=== PATIENT | female | born 1945 | race Caucasian/White ===

== ENCOUNTER → 2016-05-02 | Outpatient (CLI) | payer OTHER ==
[~2016-05-02] MED LIST: ACET-1256 PEG; AGG PEG; AGGRENOX PEG; ALBUAER19 INH; ALL100 PEG; ALLO100T PEG; AMLO-110 PEG; AMLO2.5T PEG; ASCO500T16 PO; ASPI81TA28 PEG; B-COTAB18 PO; BACL10TA PEG; BISA10SU3 PR; BISA10SU5 PR; BISA10SU7 PR; BUSP15TA70 PEG; BUSP1TAB46 PEG; CALCTAB7 PO; CHOL100010 PO; CHOL1TAB42 PO; CHOL1TAB46 PEG; CLC100X PO; CLOP1TAB15 PEG; DLCS PR; DOCU-94 PO; EPGI2M INJ; ERTA1INJ IV; ESCI1TAB10 PEG; ESCI1TAB10 PO; FIDA1TAB PO; FLUC100T4 PEG; GABA1SOL4 PEG; GABA300C19 PO; GENT0.1C2 FLUSH; HYPO0.01 TOP; INSDGI SC; INVI1 IV; IPRASOL4 INH; KPP250 PEG; KPPSUDL500 PO; LAMO150T32 PEG; LAMO200T38 PEG; LAMO200T38 PO; LAMO25TA PEG; LCTX PEG; LDDP5 TOP; LEVE100S10 PEG; LEVE250T PEG; LEVO-17 GT; LEVO-17 PEG; LEVO-17 PO; LEVO1TAB35 PO; LEXAPRO PEG; LIFI5DRO; LIFI5DRO OP; LIFI5DRO OPB; LMC25 PEG; LORA-741 PEG; LORA-741 PO; LRS10 PO; LYSI500C4 PO; MAGNTAB4 PO; MEDR2.5T GT; MELA1CAP PO; MELA1TAB4 PEG; MELA1TAB4 PO; MELA1TAB5 PO; MENTOIN TOP; MERO500I3 IV; METH1INJ SC; METH1INJ SQ; METH1TAB5 PO; METHTAB2 PO; MISCCAP80; MISCCAP80 PO; MULT-116 PO; NF656 TOP; NRN100 PO; NRN600 PEG; NUTRLIQ14 PEG; NVLG; NVLG SC; NVLGI SC; ONDA4TAB46 PEG; ONDA4TAB46 PO; ONDA4TAB65 PEG; PANT40TA PO; PENT100C6 PEG; PENT100C6 PO; PHEN-876 GT; PHEN-876 PEG; POLY335019 PEG; POLY335040 PO; POLYSOL4 OP; POLYSOL4 OPB; PROB1TAB16 PEG; PROP1SOL OPB; QUET1TAB30 PO; SLWMEC PO; SOLI10TA2 PO; SRQ25 PO; SULF1SUS4 PEG; SULF800T23 PO; SYSTANE; THIA50TA3 PO; TYLOTC500 PEG; VNTHFA/IN INH; WHITOIN2 OPB; [UNRECOGNIZED DRUG - CODE] INJ; [UNRECOGNIZED DRUG - CODE] PEG; [UNRECOGNIZED DRUG - CODE] PEG; [UNRECOGNIZED DRUG - CODE] SC; [UNRECOGNIZED DRUG - OTHER]
[2016-05-02 12:59] LABS: BASO % 0.2 %; BASO ABS # 0.01 K/uL (0-0.2); EOS % 0.9 %; HEMATOCRIT 44.7 % (37-47); IG% 0.4 %; LYMPH % 27.2 %; LYMPH ABS # 1.44 K/uL (1.2-3.4); MEAN CELL VOLUME 94.7 fL (80-100); MEAN CORPUSCULAR HEMOGLOBIN 29.4 pg (25-34); MEAN CORPUSCULAR HGB CONC 31.1 g/dl (32-36); MEAN PLATELET VOLUME 9.8 fL (7.4-10.4); MONO % 5.7 %; NEUT % 65.6 %; PLATELET COUNT 130 K/uL (130-400); RED BLOOD COUNT 4.72 M/uL (4.2-5.4)
[2016-05-02 13:36] LABS: ANISOCYTOSIS PRESENT; COMPLETE YES
== END | disposition home or self-care (01) ==
LOC: C.LABSPEC 12:25
PROVIDERS: ATTEND Internal Medicine Critical Care Medicine
DX: G82.50 Quadriplegia, unspecified (principal); J96.10 Chronic respiratory failure, unspecified whether with hypoxia or hypercapnia; I95.9 Hypotension, unspecified; E83.42 Hypomagnesemia; I10 Essential (primary) hypertension; I50.9 Heart failure, unspecified; E83.51 Hypocalcemia

== ENCOUNTER 2016-05-27 17:50 | Emergency (ER) | payer OTHER ==
[~2016-05-27] VITALS: Ht 152.4 cm; Wt 74.2 kg
[~2016-05-27 17:50] MED LIST changes: -ACET-1256 PEG; -AGGRENOX PEG; -ALL100 PEG; -AMLO-110 PEG; -BACL10TA PEG; -BISA10SU5 PR; -BISA10SU7 PR; -BUSP1TAB46 PEG; -CHOL100010 PO; -CHOL1TAB46 PEG; -DLCS PR; -DOCU-94 PO; -EPGI2M INJ; -ERTA1INJ IV; -ESCI1TAB10 PEG; -GABA1SOL4 PEG; -GENT0.1C2 FLUSH; -HYPO0.01 TOP; -INSDGI SC; -INVI1 IV; -IPRASOL4 INH; -KPP250 PEG; -KPPSUDL500 PO; -LAMO150T32 PEG; -LAMO200T38 PEG; -LAMO200T38 PO; -LAMO25TA PEG; -LCTX PEG; -LDDP5 TOP; -LEVE100S10 PEG; -LEVE250T PEG; -LEVO-17 GT; -LEVO-17 PEG; -LEVO1TAB35 PO; -LEXAPRO PEG; -LIFI5DRO; -LIFI5DRO OP; -LIFI5DRO OPB; -LMC25 PEG; -LORA-741 PO; -LRS10 PO; -MEDR2.5T GT; -MELA1CAP PO; -MELA1TAB4 PEG; -MELA1TAB4 PO; -METH1INJ SC; -METH1TAB5 PO; -MISCCAP80 PO; -NRN600 PEG; -NUTRLIQ14 PEG; -NVLG; -NVLG SC; -ONDA4TAB46 PEG; -ONDA4TAB65 PEG; -PENT100C6 PEG; -PHEN-876 GT; -POLY335019 PEG; -POLYSOL4 OP; -PROB1TAB16 PEG; -PROP1SOL OPB; -SLWMEC PO; -SRQ25 PO; -SULF1SUS4 PEG; -SULF800T23 PO; -THIA50TA3 PO; -VNTHFA/IN INH; -WHITOIN2 OPB; -[UNRECOGNIZED DRUG - CODE] PEG; -[UNRECOGNIZED DRUG - CODE] PEG
[2016-05-27 18:06] VITALS: Ht 152.4 cm; Wt 74.2 kg
[2016-05-27] MEDS ORDERED: SODIUM CHLORIDE 0.9% 1000ML 1,000 ML IV STA (18:34)
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
--- NOTE | 2016-05-27 18:56 | DIAGNOSTIC IMAGING REPORT ---
CHEST ONE VIEW PORTABLE CLINICAL HISTORY: Altered mental status. Weakness. Hypotension. COMPARISON STUDY: Chest radiograph June 30, 2015. FINDINGS: Bilateral subclavian [id number] and a tracheostomy tube are again noted. Sclerosis within the right humeral head is unchanged. There is no pneumothorax. Left basilar opacity is again noted. There is no evidence of pulmonary edema. No pneumothorax or pleural effusion is present. The cardiomediastinal silhouette is stable. IMPRESSION: Persistent left lower lung opacity which may reflect atelectasis or consolidation. Radiographic follow-up is recommended. Electronically signed by: Diallo Parker M.D. 05/27/2016 6:55 PM Dictated Date/Time: 05/27/2016 6:53 PM
[2016-05-27 18:59] LABS: BASO % 0.1 %; BASO ABS # 0.01 K/uL (0-0.2); COMPLETE YES; EOS % 0.3 %; HEMATOCRIT 41.8 % (37-47); IG% 0.1 %; LYMPH % 6.9 %; LYMPH ABS # 0.71 K/uL (1.2-3.4); MEAN CELL VOLUME 91.7 fL (80-100); MEAN CORPUSCULAR HEMOGLOBIN 29.6 pg (25-34); MEAN CORPUSCULAR HGB CONC 32.3 g/dl (32-36); MEAN PLATELET VOLUME 10.2 fL (7.4-10.4); MONO % 8.4 %; NEUT % 84.2 %; PLATELET COUNT 104 K/uL (130-400); RED BLOOD COUNT 4.56 M/uL (4.2-5.4); WHITE BLOOD COUNT 10.36 K/uL (4.8-10.8)
[2016-05-27 19:09] LABS: INR 1.1 (0.9-1.1); PARTIAL THROMBOPLASTIN RATIO 1.7; PROTHROMBIN TIME (PATIENT) 11.3 SECONDS (9.0-12.0)
[2016-05-27 19:14] LABS: BLOOD UREA NITROGEN 35 mg/dl (7-18); GLUCOSE 134 mg/dl (70-99)
[2016-05-27 19:15] LABS: ALT/SGPT 58 U/L (12-78); CALCIUM 9.4 mg/dl (8.5-10.1); CARBON DIOXIDE 25 mmol/L (21-32); CHLORIDE 97 mmol/L (98-107); MAGNESIUM 2.6 mg/dl (1.8-2.4); POTASSIUM 5.2 mmol/L (3.5-5.1); SODIUM 132 mmol/L (136-145)
[2016-05-27 19:18] LABS: ALKALINE PHOSPHATASE 163 U/L (45-117); AST/SGOT 37 U/L (15-37); CKMB/CK RATIO 16.7 (0-3.0)
[2016-05-27 19:29] LABS: MANUAL MICROSCOPIC REQUIRED? YES; URINE APPEARANCE SL CLOUDY (CLEAR); URINE BILIRUBIN NEG (NEG); URINE COLOR YELLOW; URINE NITRITE NEG (NEG); URINE PH 5.5 (4.5-7.5); URINE SPECIFIC GRAVITY <= 1.005 (1.000-1.030); UROBILINOGEN NEG (NEG)
[2016-05-27 19:30] LABS: REVIEW REQ? NO
[2016-05-27 19:35] LABS: URINE BACTERIA 2+ (NEG); URINE MUCUS PRESENT (NONE PRSENT); URINE WBC >30 /hpf (0-5)
[2016-05-27 19:36] LABS: ZZURINE CULT IF INDIC CATH YES
[2016-05-27] MEDS ORDERED: MISCCAP80 PO (19:37)
[2016-05-27] MEDS ORDERED: THIA50TA3 PO (19:37)
[2016-05-27] MEDS ORDERED: PENT100C6 PEG (19:39)
[2016-05-27] MEDS ORDERED: NRN600 PEG (19:39)
[2016-05-27] MEDS ORDERED: POLY335019 PEG (19:55)
[2016-05-27] MEDS ORDERED: LIFI5DRO OPB (19:55)
[2016-05-27] MEDS ORDERED: CHOL100010 PO (19:55)
[2016-05-27] MEDS ORDERED: MELA1TAB4 PO (19:55)
[2016-05-27] MEDS ORDERED: NVLG SC (19:55)
[2016-05-27] MEDS ORDERED: METH1TAB5 PO (19:55)
[2016-05-27] MEDS ORDERED: DOCU-94 PO (19:55)
[2016-05-27] MEDS ORDERED: EPGI2M INJ (19:56)
[2016-05-27] MEDS ORDERED: WHITOIN2 OPB (19:57)
[2016-05-27] MEDS ORDERED: MAGNTAB4 PO (20:00)
[2016-05-27] MEDS ORDERED: SULFAMETHOXAZOLE/TRIMETHOPRIM DS 800/160MG TAB PO STA (20:19)
[2016-05-27] MEDS ORDERED: SULF800T23 PO (20:26)
[2016-05-27 21:32] VITALS: BP 121/75; PULSE 57; TEMP 36.4; O2SAT 97
[2016-07-20] MEDS ORDERED: ERTA1INJ IV (01:31)
[2016-08-10] MEDS ORDERED: SULF1SUS4 PEG (14:24)
[2016-08-10] MEDS ORDERED: LRS10 PO (14:24)
[2016-08-10] MEDS ORDERED: LMC25 PEG (14:43)
[2016-08-10] MEDS ORDERED: [UNRECOGNIZED DRUG - CODE] PEG (14:43)
[2016-08-10] MEDS ORDERED: KPPSUDL500 PO (14:43)
[2016-08-10] MEDS ORDERED: GABA1SOL4 PEG ×2 (14:43)
[2016-08-10] MEDS ORDERED: LCTX PEG (14:43)
[2016-08-14] MEDS ORDERED: INVI1 IV (15:05)
[2016-10-08] MEDS ORDERED: AGGRENOX PEG (17:02)
[2016-10-08] MEDS ORDERED: BACL10TA PEG (17:06)
[2016-10-08] MEDS ORDERED: LEVO-17 GT (17:29)
[2016-10-08] MEDS ORDERED: LEVE100S10 PEG (17:34)
[2016-10-08] MEDS ORDERED: LEXAPRO PEG (17:38)
[2016-10-08] MEDS ORDERED: MELA1CAP PO (17:59)
[2016-10-08] MEDS ORDERED: METH1INJ SQ (18:05)
[2016-10-10] MEDS ORDERED: LEVO1TAB35 PO (14:08)
[2016-11-08] MEDS ORDERED: LAMO200T38 PO (14:36)
[2016-11-22] MEDS ORDERED: POLY335019 PEG (14:51)
[2016-11-22] MEDS ORDERED: CHOL1TAB46 PEG (14:51)
[2016-11-22] MEDS ORDERED: LORA-741 PEG (14:51)
[2016-11-22] MEDS ORDERED: PROB1TAB16 PEG (14:51)
[2016-11-22] MEDS ORDERED: POLYSOL4 OP (14:51)
[2016-11-22] MEDS ORDERED: VNTHFA/IN INH (14:51)
[2016-11-22] MEDS ORDERED: FLUC100T4 PEG (14:51)
[2016-11-22] MEDS ORDERED: ESCI1TAB10 PEG (14:51)
[2016-11-22] MEDS ORDERED: LDDP5 TOP (14:51)
[2016-11-22] MEDS ORDERED: BUSP1TAB46 PEG (14:51)
[2016-11-22] MEDS ORDERED: MELA1TAB4 PEG (14:51)
[2016-11-22] MEDS ORDERED: BISA10SU7 PR (14:51)
[2016-11-22] MEDS ORDERED: NUTRLIQ14 PEG (14:51)
[2016-11-22] MEDS ORDERED: AGG PEG (14:51)
[2016-11-22] MEDS ORDERED: LEVO-17 PEG (14:51)
[2016-11-22] MEDS ORDERED: AMLO-110 PEG (14:51)
[2016-11-22] MEDS ORDERED: ALL100 PEG (14:51)
[2016-11-22] MEDS ORDERED: ACET-1256 PEG (14:51)
[2016-11-22] MEDS ORDERED: CLOP1TAB15 PEG (14:51)
[2016-11-22] MEDS ORDERED: METH1INJ SC (14:51)
[2016-11-22] MEDS ORDERED: [UNRECOGNIZED DRUG - CODE] PEG (14:51)
[2016-11-22] MEDS ORDERED: GABA1SOL4 PEG ×3 (14:51)
[2016-11-22] MEDS ORDERED: INSDGI SC (14:51)
[2016-11-22] MEDS ORDERED: LIFI5DRO OP (14:51)
[2016-11-22] MEDS ORDERED: ERTA1INJ IV (14:51)
[2016-11-22] MEDS ORDERED: NVLG (14:51)
[2016-11-22] MEDS ORDERED: ONDA4TAB46 PEG (14:51)
[2016-11-22] MEDS ORDERED: PENT100C6 PEG (14:51)
[2016-11-22] MEDS ORDERED: LAMO150T32 PEG (14:51)
[2016-11-22] MEDS ORDERED: LAMO200T38 PEG (14:51)
[2016-11-22] MEDS ORDERED: PHEN-876 PEG (14:51)
[2016-11-22] MEDS ORDERED: MEDR2.5T GT (15:00)
[2016-11-28] MEDS ORDERED: SRQ25 PO (09:53)
== END 2016-05-27 21:32 | disposition home or self-care (01) ==
LOC: EDBD 17:50 → C.ED 17:54
DX: N39.0 Urinary tract infection, site not specified (principal); E86.0 Dehydration; J44.9 Chronic obstructive pulmonary disease, unspecified; J96.10 Chronic respiratory failure, unspecified whether with hypoxia or hypercapnia; G82.51 Quadriplegia, C1-C4 complete; Z87.440 Personal history of urinary (tract) infections; Z79.82 Long term (current) use of aspirin

== ENCOUNTER 2016-05-28 19:04 | Inpatient (IN) | payer OTHER ==
[~2016-05-28] VITALS: Ht 152.4 cm; Wt 69.3 kg
[~2016-05-28 19:04] MED LIST changes: -ALBUAER19 INH; -B-COTAB18 PO; -BISA10SU3 PR; +CHOL100010 PO; -CHOL1TAB42 PO; -CLC100X PO; +DOCU-94 PO; +EPGI2M INJ; -GABA300C19 PO; +LIFI5DRO OPB; +MELA1TAB4 PO; -MELA1TAB5 PO; -MENTOIN TOP; +METH1TAB5 PO; -METHTAB2 PO; -MISCCAP80; +MISCCAP80 PO; +NRN600 PEG; +NVLG SC; -NVLGI SC; +PENT100C6 PEG; -PENT100C6 PO; +POLY335019 PEG; -POLY335040 PO; +SULF800T23 PO; -SYSTANE; +THIA50TA3 PO; +WHITOIN2 OPB; -[UNRECOGNIZED DRUG - CODE] SC; -[UNRECOGNIZED DRUG - OTHER]
[2016-05-28] MEDS ORDERED: ALBUT/IPRATROP 3MG/0.5MG NEB 3 ML VIAL INH ONE (19:15)
--- NOTE | 2016-05-28 19:27 | EMERGENCY ROOM VISIT NOTE ---
History Report prepared by [place]: Dionna Mayes Under the Supervision of: Dr. Rajat Thompson M.D. First contact with patient: 19:10 Chief Complaint: LETHARGIC Stated Complaint: LETARGIC History of Present Illness The patient is a 71 year old female who presents to the Emergency Room via family to be evaluated for worsening lethargy with onset LINE STAKER. Per family was evaluated in the ED one night ago and her symptoms have remained unchanged. She has been more short of breath. The patient's blood pressure has been vacillating throughout the day, and the patient had voiced to her family that she felt as if she was dying. She told her family that she wanted to be evaluated in the ED. Source of History: family Onset: LINE STAKER Position: other (global) Quality: other (lethargy) Timing: worsening Associated Symptoms: + SOB Note: The patient's blood pressure has been vacillating throughout the day. Review of Systems See HPI for pertinent positives & negatives. A total of 10 systems reviewed and were otherwise negative. Past Medical & Surgical Medical Problems: (1) Aspiration pneumonia (2) Chronic obstructive lung disease (3) Chronic respiratory failure (4) Chronic urinary tract infection (5) Dependence on continuous positive airway pressure ventilation (6) ESOPHAGEAL CANDIDITIS (7) leukocytoclastic vasculitis (8) Quadriplegia (9) Respiratory arrest (10) Respiratory failure (11) vent dep Family History Cancer Diabetes mellitus Heart disease Hypertension Lung disease Social History Smoking Status: Never Smoker Alcohol Use: none Drug Use: none Marital Status: Housing Status: other Occupation Status: disabled Current/Historical Medications Scheduled Allopurinol (Zyloprim), 100 MG PO LUNCH Amlodipine Besylate (Norvasc), 1.5 TAB PO DAILY Ascorbic Acid (Ascorbic Acid), 500 MG PO BID Aspirin (Aspirin Ec), 81 MG PO DAILY Aspirin-Dipyridamole 25MG/200MG (Aggrenox 200MG/25MG), 1 CAP PO BID Buspirone Hcl (Buspar), 7.5 MG PO BID Calcium Carbonate-Vitamin D W/ (Caltrate 600 Plus), 600 MG PO BID Cholecalciferol (Vitamin D), 5,000 UNITS PO DAILY Clopidogrel (Plavix), 75 MG PO DAILY Docusate Sodium (Colace), 1 CAP PO BID Epoetin Biju (Procrit), 1 DOSE INJ WK Escitalopram Oxalate (Lexapro), 20 MG PO QAM Fidaxomicin (Dificid), 200 MG PO BID Fluconazole (Diflucan), 100 MG PO QPM Gabapentin (Gabapentin), 100 MG PO QAM Gabapentin (Gabapentin), 200 MG PO 1600 Gabapentin (Gabapentin), 600 MG PO HS Gentamicin In Saline (Gentamicin Sulfate/0.9% S), 88 MG INJ WEEKLY Insulin Aspart (Novolog), UNITS SC SS Levofloxacin (Levaquin), 250 MG PO DAILY Lidocaine (Lidoderm Patch 5%), 2 PATCH TOP Q12 Lifitegrast (Xiidra), 1 DROP OPB BID Lorazepam (Ativan), 0.5 MG PO PRN Lysine (L-Lysine), 500 MG PO QPM Magnesium Chloride (Slow-Mag Tab), 64 MG PO BID Meropenem (Meropenem), 500 MG IV Q8H Methenamine Hippurate (Methenamine Hippurate), 1 GM PO BID Methylnaltrexone [place] (Relistor), SQ QOD Multiple Vitamins W/ Minerals (Theragran-M), 1 TABLET PO QAM Pantoprazole Sodium (Protonix), 40 MG PO BID Pentosan Polysulfate Sodium (Elmiron), 100 MG PO BID Polyethylene Glycol 3350 (Miralax), 17 GM PO DAILY Probiotic Product (Probiotic), 1 CAP PO TID Solifenacin (Vesicare), 10 MG PO HS Sulfa/Trimethoprim (Bactrim Ds 800MG/160MG), 1 TAB PO BID Thiamine Hcl (Vitamin B-1), 1 TAB PO DAILY White Petrolatum-Mineral Oil (Systane Nighttime), 1 APPLN OPB HS Scheduled PRN Acetaminophen (Tylenol), 1,000 MG PO Q6 PRN for Pain or Fever Melatonin (Melatonin), 1-3 TABS PO HS PRN for Sleep Ondansetron Hcl (Zofran), 4 MG PO Q4H PRN for Nausea Phenazopyridine HCl (Pyridium), 200 MG PO DAILY PRN for Bladder pain Polyethylene Glycol-Propylene (Systane), 2 DROPS OPB BID PRN for DRY EYES Quetiapine Fumarate (Seroquel), 25 MG PO HS PRN for Sleep Allergies Coded Allergies: Ampicillin (Verified Allergy, Unknown, Unknown, 05/28/16) Cephalexin (Verified Allergy, Unknown, Unknown, 05/28/16) Cephalosporins (Verified Allergy, Unknown, UNKN, 05/28/16) Erythromycin (Verified Allergy, Unknown, UNKNOWN, 05/28/16) Linezolid (Verified Allergy, Unknown, UNKN, 05/28/16) Nitrofurantoin (Verified Allergy, Unknown, Unknown, 05/28/16) Penicillins (Verified Allergy, Unknown, UNKN, 05/28/16) Physical Exam Vital Signs Date Time Temp Pulse Resp B/P Pulse Ox O2 Delivery O2 Flow Rate FiO2 05/28/16 20:43 74 28 142/52 98 Mechanical Ventilator 4.0 05/28/16 19:58 Mechanical Ventilator 05/28/16 19:31 51 16 97 Mechanical Ventilator 3.0 05/28/16 19:18 36.4 57 16 117/54 100 Mechanical Ventilator 3.0 05/28/16 19:15 51 Physical Exam GENERAL: Patient is chronically ill appearing HEAD: Normocephalic atraumatic EYES: Ocular movements intact pupils equal and react to light OROPHARYNX mucous membranes are moist no exudates present no erythema or edema present NECK: Supple no nuchal rigidity, tracheostomy in place, on ventilator CHEST: Good equal expansion LUNGS: Clear and equal to auscultation CARDIAC: Normal S1 and S2 ABDOMEN: Soft nontender no guarding BACK: No CVA tenderness EXTREMITIES: No pain upon palpation normal muscle strength in all groups no clubbing cyanosis or edema NEURO: Patient is following commands is answering questions appropriately. Alert and oriented x3 Cranial Nerves 2-12 grossly intact Medical Decision & Procedures ER Provider Diagnostic Interpretation: X-ray results as stated below per my interpretation and radiologist interpretation. Other radiology results as stated below per my review and radiologist interpretation: SINGLE VIEW CHEST CLINICAL HISTORY: Sepsis. FINDINGS: An AP, portable, upright chest radiograph is compared to study dated 05/27/2016. Correlation with chest CT dated 01/25/2014. The examination is significantly degraded by portable technique and patient rotation. A tracheostomy, a right subclavian central venous infusion port, and the left subclavian central venous catheter are unchanged in position. The heart is enlarged. There is pulmonary vascular congestion. More focal airspace opacities are seen at the left lung base. No large pleural effusion is identified. No pneumothorax is seen. The skeletal structures are osteopenic. The bony thorax is grossly intact. IMPRESSION: 1. Cardiomegaly with mild pulmonary vascular congestion. 2. No large pleural effusion is seen. 3. There are airspace opacities at the left lung base. This could present atelectasis and/or an infectious/inflammatory pneumonitis. Clinical correlation will be required. Electronically signed by: Melvin Dominguez M.D. 05/28/2016 7:44 PM Dictated Date/Time: 05/28/2016 7:[address] ANGIOGRAM OF THE CHEST CLINICAL HISTORY: Dyspnea. COMPARISON STUDY: Chest CT dated 01/25/2014. Chest x-ray dated 05/28/16. TECHNIQUE: Following the IV administration of 82 cc of Optiray 320, CT angiogram of the chest was performed from the upper abdomen to the thoracic inlet utilizing the pulmonary embolus protocol. Images are reviewed in the axial, sagittal, and coronal planes. 3-D MIPS images are created and assessed. IV contrast was administered without complication. The examination is degraded by streak artifact from the patient's arms which could not be elevated above the chest, as well as by motion artifact. CT DOSE: 610.47 mGy.cm FINDINGS: Thyroid: Imaged portions of the thyroid gland are normal in size and attenuation. Thoracic aorta: There is mild atherosclerotic calcification of the thoracic aorta, which is normal in caliber and demonstrates standard 3-vessel arch anatomy. No dissection is seen. A right subclavian central venous infusion port is in place. A left subclavian central venous catheter is identified. Pulmonary vasculature: The main pulmonary arteries are dilated suggesting pulmonary artery hypertension. There are no filling defects identified in main, lobar, or segmental pulmonary branches to suggest pulmonary embolus. Heart: The heart is enlarged and without pericardial effusion. The coronary arteries are densely calcified. Lungs and pleural spaces: A tracheostomy is in place. The trachea appears clear. Evaluation of the lung parenchyma is degraded by respiratory motion artifact. There are small pleural effusions with dense bibasilar airspace consolidation, left greater than right. Mediastinum: There is mediastinal lymphadenopathy. Mediastinal lymph nodes measure up to 1.6 cm in short axis. Ivory: Clear. Axillae: There is no axillary lymphadenopathy. Upper abdomen: There is a small hiatal hernia. The spleen appears enlarged. Esophagus is filled with fluid to the level of the upper thorax. Partially visualized upper abdominal viscera is otherwise grossly within normal limits. Skeletal structures: The skeletal structures are heterogeneously osteopenic. Degenerative change and hyperkyphosis are noted in the thoracic spine. Compression deformities are noted in T1, T3, T4, T5, T9, T11, L1, and L2. No lytic or blastic bony lesions are seen. IMPRESSION: 1. Significantly motion and streak artifact degraded examination. 2. There is no evidence of pulmonary embolus in the main, lobar, or segmental pulmonary arteries. 3. Cardiomegaly with evidence of pulmonary artery hypertension. 4. There are small pleural effusions with dense bibasilar airspace consolidation, left greater than right. Correlate clinically for evidence of pneumonia/aspiration pneumonitis. Radiographic follow-up to resolution is recommended. 5. The esophagus is patulous and fluid-filled. Note that this may place the patient at risk for aspiration. 6. Mediastinal lymphadenopathy is nonspecific and may be on a reactive basis. Clinical correlation will be required. 7. Additional changes as above. Electronically signed by: Melvin Dominguez M.D. 05/28/2016 10:32 PM Dictated Date/Time: 05/28/2016 10:25 PM Laboratory Results Test 05/28/16 19:45 05/28/16 19:54 05/28/16 20:00 Prothrombin Time 11.6 SECONDS (9.0-12.0) Prothromb Time International Ratio 1.1 (0.9-1.1) Activated Partial Thromboplast Time 74.4 SECONDS (21.0-31.0) Partial Thromboplastin Ratio 2.9 Total Creatine Kinase 33 U/L (26-192) Creatine Kinase MB 5.6 ng/ml (0.5-3.6) Creatine Kinase MB Ratio 17.0 (0-3.0) Troponin I < 0.015 ng/ml (0-0.045) Globulin 5.4 gm/dl (2.5-4.0) Albumin/Globulin Ratio 0.4 (0.9-2) Bedside Lactic Acid Venous 0.69 mmol/L (0.90-1.70) Influenza Type A (RT-PCR) Neg for Influ A (NEG) Influenza Type B (RT-PCR) Neg for Influ B (NEG) Labs reviewed by ED physician. Medications Administered Medications (Trade) Dose Ordered Sig/Tasha Route Start Time Stop Time Status Last Admin Dose Admin Albuterol/ Ipratropium (Duoneb) 12 ml ONE ONCE INH 05/28/16 19:15 05/28/16 19:16 DC 05/28/16 19:31 12 ML Calcium Gluconate (Calcium Gluconate 10%) 1,000 mg NOW STAT IV 05/28/16 20:31 05/28/16 20:33 DC 05/28/16 20:54 1,000 MG Insulin Human Regular (novoLIN-R U-100 PER UNIT) 10 units NOW STAT IV 05/28/16 20:31 05/28/16 20:33 DC 05/28/16 20:54 10 UNITS Dextrose (Dextrose 50% 50ML Syringe) 50 ml NOW STAT IV 05/28/16 20:31 05/28/16 20:33 DC 05/28/16 20:54 50 ML Sodium Bicarbonate 50 ml 50 ml NOW STAT IV 05/28/16 20:31 05/28/16 20:33 DC 05/28/16 20:55 50 ML Sodium Chloride (Nss 1000ml) 1,000 ml @ 999 mls/hr Q1H1M STAT IV 05/28/16 20:33 05/28/16 21:33 DC 05/28/16 20:55 999 MLS/HR Acetaminophen 1000 mg 1,000 mg NOW STAT PO 05/28/16 21:21 05/28/16 21:22 DC 05/28/16 21:21 1,000 MG Aztreonam/Dextrose (Azactam IV/D5 100ml) 110 ml @ 100 mls/hr NOW STAT IV 05/28/16 22:37 05/28/16 23:42 DC 05/29/16 00:04 100 MLS/HR ECG Indication: weakness Rate (beats per minute): 58 Rhythm: sinus bradycardia Findings: no acute ischemic change, no ectopy ED Course 1910: Past medical records reviewed. The patient was evaluated in room B12. A complete history and physical examination was performed. 1914: Duoneb 12 ml INH 1947: I reevaluated the patient; she is doing well. 2030: Sodium Bicarbonate 50 ml IV, Dextrose 50 ml IV, Insulin Human Regular 10 units IV, Calcium Gluconate 1000 mg IV 2032: Sodium Chloride 1000 ml @ 999 mls/hr IV 2120: Tylenol Tab 1000 mg PO 2233: I discussed the case with Dr. Plata ([facility]); he will further evaluate the patient. Medical Decision The patient is a 71 year old female who presents to the ED with complaints of lethargy. Differential diagnosis: Etiologies such as sepsis, UTI, pneumonia, metabolic, electrolyte abnormalities , cardiac sources, intracerebral event, toxicologic, neurologic, as well as others were entertained. This is a 71-year-old female who presents emergency department complaining of altered mental status. The patient's potassium was found to be elevated and so the patient was given insulin and dextrose, bicarbonate as well as calcium carbonate. Repeat examination revealed improvement the patient's symptoms. The patient also appears to have an aspiration pneumonia on chest x-ray. For this reason I discussed the case with the hospitalist service who agreed to admit the patient. Patient and family were in agreement with the treatment plan. Consults Time Called: 2229 Consulting Physician: Dr. Plata ([facility]) Returned Call: 2233 I discussed the case with Dr. Plata ([facility]); he will further evaluate the patient. Impression Primary Impression: Hyperkalemia Additional Impression: Aspiration pneumonia Critical Care I have personally spent greater than 30 minutes of critical care time in the direct management of this patient. This includes bedside care, interpretation of diagnostic studies, and testing, discussion with consultants, patient, and family members, and other required patient management activities. This 30 minutes is in excess of all separately billable procedures. Scribe Attestation The scribe's documentation has been prepared under my direction and personally reviewed by me in its entirety. I confirm that the note above accurately reflects all work, treatment, procedures, and medical decision making performed by me. Departure Information Dispostion Being Evaluated By Hospitalist Referrals Jerome Colorado M.D. (PCP) Patient Instructions My [facility] Problem Qualifiers Additional Impression: Aspiration pneumonia Aspiration pneumonia type: unspecified Laterality: bilateral Lung location : unspecified part of lung Qualified Codes: J69.0 - Pneumonitis due to inhalation of food and vomit
[2016-05-28 19:31] VITALS: PULSE 51; O2SAT 97
--- NOTE | 2016-05-28 19:46 | DIAGNOSTIC IMAGING REPORT ---
SINGLE VIEW CHEST CLINICAL HISTORY: Sepsis. FINDINGS: An AP, portable, upright chest radiograph is compared to study dated 05/27/2016. Correlation with chest CT dated 01/25/2014. The examination is significantly degraded by portable technique and patient rotation. A tracheostomy, a right subclavian central venous infusion port, and the left subclavian central venous catheter are unchanged in position. The heart is enlarged. There is pulmonary vascular congestion. More focal airspace opacities are seen at the left lung base. No large pleural effusion is identified. No pneumothorax is seen. The skeletal structures are osteopenic. The bony thorax is grossly intact. IMPRESSION: 1. Cardiomegaly with mild pulmonary vascular congestion. 2. No large pleural effusion is seen. 3. There are airspace opacities at the left lung base. This could present atelectasis and/or an infectious/inflammatory pneumonitis. Clinical correlation will be required. Electronically signed by: Melvin Dominguez M.D. 05/28/2016 7:44 PM Dictated Date/Time: 05/28/2016 7:42 PM
[2016-05-28 20:00] LABS: COMPLETE YES; EOS % 0.2 %; HEMATOCRIT 39.8 % (37-47); IG% 0.3 %; LYMPH % 6.7 %; LYMPH ABS # 0.61 K/uL (1.2-3.4); MEAN CELL VOLUME 90.5 fL (80-100); MEAN CORPUSCULAR HEMOGLOBIN 29.5 pg (25-34); MEAN CORPUSCULAR HGB CONC 32.7 g/dl (32-36); MEAN PLATELET VOLUME 11.3 fL (7.4-10.4); MONO % 7.7 %; NEUT % 85.1 %; PLATELET COUNT 117 K/uL (130-400); WHITE BLOOD COUNT 9.15 K/uL (4.8-10.8)
[2016-05-28] MEDS ORDERED: OPTIRAY 320 IV PRN (20:15)
[2016-05-28 20:17] LABS: URINE APPEARANCE SL CLOUDY (CLEAR); URINE BILIRUBIN NEG (NEG); URINE NITRITE NEG (NEG); URINE PH 5.5 (4.5-7.5); URINE SPECIFIC GRAVITY 1.025 (1.000-1.030); UROBILINOGEN NEG (NEG)
[2016-05-28 20:18] LABS: MANUAL MICROSCOPIC REQUIRED? NO; REVIEW REQ? NO; URINE COLOR YELLOW
[2016-05-28 20:19] LABS: ZZURINE CULT IF INDIC CATH YES
[2016-05-28 20:22] LABS: INR 1.1 (0.9-1.1); PARTIAL THROMBOPLASTIN RATIO 2.9; PROTHROMBIN TIME (PATIENT) 11.6 SECONDS (9.0-12.0)
[2016-05-28 20:26] LABS: ALT/SGPT 51 U/L (12-78); AST/SGOT 28 U/L (15-37); BLOOD UREA NITROGEN 48 mg/dl (7-18); BUN/CREATININE RATIO 34.3 (10-20); CALCIUM 8.6 mg/dl (8.5-10.1); CARBON DIOXIDE 21 mmol/L (21-32); CHLORIDE 96 mmol/L (98-107); GLUCOSE 160 mg/dl (70-99); SODIUM 126 mmol/L (136-145)
[2016-05-28 20:30] LABS: ALB/GLOB RATIO 0.4 (0.9-2); ALKALINE PHOSPHATASE 226 U/L (45-117)
[2016-05-28] MEDS ORDERED: CALCIUM GLUCONATE 10% 10 ML VIAL IV STA (20:31)
[2016-05-28] MEDS ORDERED: SODIUM BICARB 8.4% INJ 50 MEQ/50 ML SYR IV STA (20:31)
[2016-05-28] MEDS ORDERED: DEXTROSE 50% 50 ML SYR IV STA (20:31)
[2016-05-28] MEDS ORDERED: NovoLIN-R INSULIN PER UNIT CHARGE IV STA (20:31)
[2016-05-28] MEDS ORDERED: SODIUM CHLORIDE 0.9% 1000ML 1,000 ML IV STA (20:33)
[2016-05-28] MEDS ORDERED: ACETAMINOPHEN 500 MG TAB PO STA (21:21)
[2016-05-28 22:07] LABS: INFLUENZA A PCR Neg for Influ A (NEG); INFLUENZA B PCR Neg for Influ B (NEG)
--- NOTE | 2016-05-28 22:33 | DIAGNOSTIC IMAGING REPORT ---
CT ANGIOGRAM OF THE CHEST CLINICAL HISTORY: Dyspnea. COMPARISON STUDY: Chest CT dated 01/25/2014. Chest x-ray dated 05/28/16. TECHNIQUE: Following the IV administration of 82 cc of Optiray 320, CT angiogram of the chest was performed from the upper abdomen to the thoracic inlet utilizing the pulmonary embolus protocol. Images are reviewed in the axial, sagittal, and coronal planes. 3-D MIPS images are created and assessed. IV contrast was administered without complication. The examination is degraded by streak artifact from the patient's arms which could not be elevated above the chest, as well as by motion artifact. CT DOSE: 610.47 mGy.cm FINDINGS: Thyroid: Imaged portions of the thyroid gland are normal in size and attenuation. Thoracic aorta: There is mild atherosclerotic calcification of the thoracic aorta, which is normal in caliber and demonstrates standard 3-vessel arch anatomy. No dissection is seen. A right subclavian central venous infusion port is in place. A left subclavian central venous catheter is identified. Pulmonary vasculature: The main pulmonary arteries are dilated suggesting pulmonary artery hypertension. There are no filling defects identified in main, lobar, or segmental pulmonary branches to suggest pulmonary embolus. Heart: The heart is enlarged and without pericardial effusion. The coronary arteries are densely calcified. Lungs and pleural spaces: A tracheostomy is in place. The trachea appears clear. Evaluation of the lung parenchyma is degraded by respiratory motion artifact. There are small pleural effusions with dense bibasilar airspace consolidation, left greater than right. Mediastinum: There is mediastinal lymphadenopathy. Mediastinal lymph nodes measure up to 1.6 cm in short axis. Ivory: Clear. Axillae: There is no axillary lymphadenopathy. Upper abdomen: There is a small hiatal hernia. The spleen appears enlarged. Esophagus is filled with fluid to the level of the upper thorax. Partially visualized upper abdominal viscera is otherwise grossly within normal limits. Skeletal structures: The skeletal structures are heterogeneously osteopenic. Degenerative change and hyperkyphosis are noted in the thoracic spine. Compression deformities are noted in T1, T3, T4, T5, T9, T11, L1, and L2. No lytic or blastic bony lesions are seen. IMPRESSION: 1. Significantly motion and streak artifact degraded examination. 2. There is no evidence of pulmonary embolus in the main, lobar, or segmental pulmonary arteries. 3. Cardiomegaly with evidence of pulmonary artery hypertension. 4. There are small pleural effusions with dense bibasilar airspace consolidation, left greater than right. Correlate clinically for evidence of pneumonia/aspiration pneumonitis. Radiographic follow-up to resolution is recommended. 5. The esophagus is patulous and fluid-filled. Note that this may place the patient at risk for aspiration. 6. Mediastinal lymphadenopathy is nonspecific and may be on a reactive basis. Clinical correlation will be required. 7. Additional changes as above. Electronically signed by: Melvin Dominguez M.D. 05/28/2016 10:32 PM Dictated Date/Time: 05/28/2016 10:25 PM
[2016-05-28] MEDS ORDERED: AZTREONAM IV 2,000 MG in DEXTROSE 5% 100ML 100 ML IV STA (22:37)
[2016-05-28] MEDS ORDERED: LEVAQUIN 750MG / 150ML D5W IV ONE (22:45)
[2016-05-28] MEDS ORDERED: ACETAMINOPHEN 500 MG TAB PO PRN (23:00)
[2016-05-28] MEDS ORDERED: QUETIAPINE FUMARATE 25 MG TAB PO PRN (23:00)
[2016-05-28] MEDS ORDERED: LEVALBUTEROL 1.25MG/3ML NEB INH PRN (23:00)
[2016-05-28] MEDS ORDERED: HEPARIN SOD 5000 UNIT/0.5 ML CARP SQ SCH (23:00)
[2016-05-28] MEDS ORDERED: LORAZEPAM 0.5 MG TAB PO SCH (23:00)
[2016-05-28] MEDS ORDERED: MEROPENEM 500 MG IV SCH (23:00)
[2016-05-29] VITALS (46 sets, daily range): BP systolic 122–169; BP diastolic 56–113; PULSE 63–84; TEMP 36.4–36.5; O2SAT 90–100; Ht 152.4 cm; Wt 69.3 kg
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
[2016-05-29 01:12] LABS: BUN/CREATININE RATIO 31.5 (10-20); CALCIUM 8.6 mg/dl (8.5-10.1); CREATININE 1.4 mg/dl (0.60-1.20); PHOSPHORUS 5.3 mg/dl (2.5-4.9); POTASSIUM 5.7 mmol/L (3.5-5.1)
[2016-05-29] MEDS ORDERED: METRONIDAZOLE / NSS 500 MG in PREMIXED NSS 100 ML IV SCH (02:00)
[2016-05-29] MEDS ORDERED: LORAZEPAM 0.5 MG TAB PO PRN (02:00)
[2016-05-29] MEDS ORDERED: SODIUM POLYST. SULF SUSP 15G/60ML PO ONE (02:45)
[2016-05-29] MEDS ORDERED: SODIUM CHLORIDE 0.9% 1000ML 1,000 ML IV SCH (02:45)
[2016-05-29] MEDS: ALBUT/IPRATROP 3MG/0.5MG NEB 3 ML VIAL INH SCH ×4 (03:00→20:29)
[2016-05-29] MEDS ORDERED: LEVOFLOXACIN / D5W 750 MG in PREMIXED IN D5W 150 ML IV SCH (03:00)
[2016-05-29] MEDS ORDERED: ARTIFICIAL TEARS OP SOLN OPB PRN ×2 (04:45)
[2016-05-29] MEDS ORDERED: LEVOFLOXACIN CONSULT ACTIVE PRN (06:45)
[2016-05-29] MEDS: ACETAMINOPHEN 325 MG TAB PO PRN (06:49)
[2016-05-29] MEDS: BISACODYL 10 MG SUPP PR SCH (06:49)
[2016-05-29 06:56] LABS: COMPLETE YES; HEMATOCRIT 38.5 % (37-47); IG% 0.3 %; LYMPH % 7.8 %; LYMPH ABS # 0.54 K/uL (1.2-3.4); MEAN CELL VOLUME 89.3 fL (80-100); MEAN CORPUSCULAR HEMOGLOBIN 29.5 pg (25-34); MEAN PLATELET VOLUME 9.8 fL (7.4-10.4); MONO % 6.8 %; NEUT % 85.1 %; PLATELET COUNT 108 K/uL (130-400); RED BLOOD COUNT 4.31 M/uL (4.2-5.4); WHITE BLOOD COUNT 6.96 K/uL (4.8-10.8)
[2016-05-29] MEDS: INSULIN ASPART 100 UNITS/ML 3 ML PEN SC SCH ×4 (07:15→21:00)
[2016-05-29 07:35] LABS: BUN/CREATININE RATIO 32.5 (10-20); CALCIUM 8.7 mg/dl (8.5-10.1); CREATININE 1.2 mg/dl (0.60-1.20); MAGNESIUM 2.8 mg/dl (1.8-2.4); PHOSPHORUS 4.6 mg/dl (2.5-4.9); POTASSIUM 4.8 mmol/L (3.5-5.1)
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
[2016-05-29] MEDS ORDERED: NON-FORMULARY MEDICATION (Probiotic Product (Probiotic) 1 CAP) PO SCH (09:00)
[2016-05-29] MEDS ORDERED: AMLODIPINE BESYLATE 5 MG TAB PO SCH (09:00)
[2016-05-29] MEDS ORDERED: ALBUTEROL HFA INHALER 8.5 GM INH SCH (09:00)
[2016-05-29] MEDS ORDERED: POLYETHYLENE (MIRALAX) 17 GM PACK PO SCH (09:00)
[2016-05-29] MEDS ORDERED: KETOROLAC TROMETHAMINE 15 MG/ML VIAL ONE (09:25)
[2016-05-29] MEDS: ASPIRIN 81 MG ECTAB PO SCH (09:26)
[2016-05-29] MEDS: BusPIRone 15 MG TAB PO SCH ×2 (09:26→21:03)
[2016-05-29] MEDS: CLOPIDOGREL BISULFATE 75 MG TAB PO SCH (09:29)
[2016-05-29] MEDS: CALCIUM 600MG + VIT D 400 IU TAB PO SCH ×2 (09:29→21:11)
[2016-05-29] MEDS: ALLOPURINOL 100 MG TAB PO SCH (09:29)
[2016-05-29] MEDS: ASCORBIC ACID 500 MG TAB PO SCH ×2 (09:29→21:10)
[2016-05-29] MEDS: MAGNESIUM CHLORIDE 64MG DELAYED REL TAB PO SCH ×2 (09:29→21:06)
[2016-05-29] MEDS: PENTOSAN POLYSULFATE SODIUM 100 MG CAP PO SCH ×2 (09:29→21:04)
[2016-05-29] MEDS ORDERED: KETOROLAC TROMETHAMINE 15 MG/ML VIAL IV. ONE (09:30)
[2016-05-29] MEDS: THIAMINE HCL 100 MG TAB PO SCH (09:30)
[2016-05-29] MEDS: DOCUSATE SODIUM 100 MG CAP PO SCH ×2 (09:30→21:06)
[2016-05-29] MEDS: ESCITALOPRAM OXALATE 20 MG TAB PO SCH (09:30)
[2016-05-29] MEDS: DIPYRIDAMOLE/ASPIRIN CAP PO SCH ×2 (09:32→21:04)
[2016-05-29] MEDS: METHENAMINE HIPPURATE 1 GM TAB PO SCH ×2 (09:32→21:05)
[2016-05-29] MEDS: GABAPENTIN 100 MG CAP PO SCH ×3 (09:33→16:55)
[2016-05-29] MEDS: PANTOprazole SOD 40 MG TAB PO SCH ×2 (09:33→21:07)
[2016-05-29] MEDS: CHOLECALCIFEROL 1000 INTER.UNIT TAB PO SCH ×2 (09:33→21:10)
[2016-05-29] MEDS: AMLODIPINE BESYLATE 5 MG TAB PO SCH (09:36)
[2016-05-29] MEDS ORDERED: ALBUT/IPRATROP 3MG/0.5MG NEB 3 ML VIAL INH PRN (09:45)
--- NOTE | 2016-05-29 10:58 | Medical Consult ---
Consultation Date of Consultation: May 29, 2016. Attending Physician: Stanton Plata MD Reason for Consultation: abx management, aspiration pna History of Present Illness Patient is a 71 yo quadriplegic female known to myself from previous ID consultation for recurrent UTI's who presented to the hospital with worsening fatigue and SOB. 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 She was evaluated in the ED 1 day FLIGHT PURSER during which time a urine culture was completed and showed no growth. The patient was chronically placed on rotating Meropenem x 1 month and Levaquin x [address] [place] multiple months ago. She has been doing well in regards to her recurrent UTI's since that time according to her caregiver. Since admission, the patient was noted to have normal WBC count, Procalcitonin of 0.35, potassium was elevated to 7.0 on admission, and creatinine was mildly elevated at 1.40. CT scan of the chest showed dense bibasilar airspace consolidation, L>R , possible atelectasis versus aspiration pna, and 'patulous' and fluid-filled esophagus putting at risk for aspiration as well. She was place on Levaquin and Flagyl, but was discontinued from these this afternoon. I did discuss this patient with Dr. Coleman and Josselin Ballesteros PA-C. Past Medical/Surgical History Medical Problems: (1) Acute renal failure Status: Acute (2) Dehydration Status: Acute (3) Elevated troponin Status: Acute (4) Hyperkalemia Status: Acute (5) Hypotension Status: Acute (6) Sepsis Status: Acute (7) UTI (urinary tract infection) Status: Acute Medical Problems: (1) Aspiration pneumonia (2) Chronic obstructive lung disease (3) Chronic respiratory failure (4) Chronic urinary tract infection (5) Dependence on continuous positive airway pressure ventilation (6) ESOPHAGEAL CANDIDITIS (7) leukocytoclastic vasculitis (8) Quadriplegia (9) Respiratory arrest (10) Respiratory failure (11) vent dep Family History Cancer Diabetes mellitus Heart disease Hypertension Lung disease Noncontributory Social History Smoking Status: Never Smoker Drug Use: none Marital Status: Housing Status: other Occupation Status: disabled Allergies Coded Allergies: Ampicillin (Verified Allergy, Unknown, Unknown, 05/28/16) Cephalexin (Verified Allergy, Unknown, Unknown, 05/28/16) Cephalosporins (Verified Allergy, Unknown, UNKN, 05/28/16) Erythromycin (Verified Allergy, Unknown, UNKNOWN, 05/28/16) Linezolid (Verified Allergy, Unknown, UNKN, 05/28/16) Nitrofurantoin (Verified Allergy, Unknown, Unknown, 05/28/16) Penicillins (Verified Allergy, Unknown, UNKN, 05/28/16) Home Medications Reported Home Medications Medications Dose Route/Sig Max Daily Dose Days Date Category Dose Instructions Bactrim Ds 800MG/160MG (Trimethoprim/Sulfamethoxazole) Tab 1 Tab PO BID 05/27/16 Rx Slow-Mag Tab (Magnesium Chloride) 64 Mg Tabcr 64 Mg PO BID 05/27/16 Reported Systane Nighttime (White Petrolatum-Mineral Oil) 1 Oin Oin 1 Appln OPB HS 05/27/16 Reported Procrit (Epoetin Biju) Unknown Strength Inj 1 Dose INJ WK 05/27/16 Reported SATURDAY Melatonin 1 Mg Tab 1-3 Tabs PO HS PRN 05/27/16 Reported Xiidra (Lifitegrast) 5 % Gera 1 Drop OPB BID 05/27/16 Reported Novolog (Insulin Aspart) 100 Units/Ml Inj Units SC SS 05/27/16 Reported Vitamin D (Cholecalciferol) 1,000 Unit Tab 5,000 Units PO DAILY 05/27/16 Reported Methenamine Hippurate 1 Gm Tab 1 Gm PO BID 05/27/16 Reported Miralax (Polyethylene Glycol 3350) 1 Pow Pow 17 Gm PO DAILY 05/27/16 Reported Colace (Docusate Sodium) 100 Mg Cap 1 Cap PO BID 30 05/27/16 Reported Gabapentin 600 Mg Tab 600 Mg PO HS 05/27/16 Reported Elmiron (Pentosan Polysulfate Sodium) 100 Mg Cap 100 Mg PO BID 05/27/16 Reported Probiotic (Probiotic Product) 1 Cap Cap 1 Cap PO TID 05/27/16 Reported Vitamin B-1 (Thiamine HCl) Unknown Strength Tab 1 Tab PO DAILY 05/27/16 Reported Relistor (Methylnaltrexone [place]) 8 Mg/0.4 Ml Inj SQ QOD 12/22/15 Reported Ativan (Lorazepam) 0.5 Mg Tab 0.5 Mg PO PRN 12/22/15 Reported Norvasc (Amlodipine Besylate) 2.5 Mg Tab 1.5 Tab PO DAILY 30 10/20/15 Reported Gentamicin Sulfate/0.9% S (Gentamicin In Saline) 1 Inj Inj 88 Mg INJ WEEKLY 09/26/15 Reported INSTILL INTO BLADDER Levaquin (Levofloxacin) 250 Mg Tab 250 Mg PO DAILY 09/26/15 Reported ROTATES WITH IV MEROPENEM, FOR 28 CYCLE Meropenem 500 Mg Inj 500 Mg IV Q8H 09/26/15 Reported ROTATES WITH LEVAQUIN Zofran (Ondansetron HCl) 4 Mg Tab 4 Mg PO Q4H PRN 09/26/15 Reported Seroquel (Quetiapine Fumarate) 25 Mg Tab 25 Mg PO HS PRN 09/26/15 Reported Systane (Polyethylene Glycol-Propylene) 1 More More 2 Drops OPB BID PRN 06/30/15 Reported Lidoderm Patch 5% (Lidocaine) 1 Ea Tdsy 2 Patch TOP Q12 06/30/15 Reported APPLY TO RIGHT HIP AND THIGH ON 12 HOURS OFF 12 HOURS Tylenol (Acetaminophen) 500 Mg Tab 1,000 Mg PO Q6 PRN 02/22/15 Reported Aggrenox 200MG/25MG (Aspirin-Dipyridamole 25MG/200MG) 1 Cap Cap 1 Cap PO BID 02/22/15 Reported MAR SAYS AGGRENOX 25/250MG Gabapentin 100 Mg Cap 200 Mg PO 1600 02/22/15 Reported Gabapentin 100 Mg Cap 100 Mg PO QAM 02/22/15 Reported Diflucan (Fluconazole) 100 Mg Tab 100 Mg PO QPM 02/11/15 Reported Dificid (Fidaxomicin) 200 Mg Tab 200 Mg PO BID 02/11/15 Reported WHILE ON IV THERAPY Plavix (Clopidogrel Bisulfate) 75 Mg Tab 75 Mg PO DAILY 02/11/15 Reported Aspirin Ec (Aspirin) 81 Mg Tab 81 Mg PO DAILY 02/11/15 Reported Buspar (Buspirone Hcl) 15 Mg Tab 7.5 Mg PO BID 03/20/14 Reported Caltrate 600 Plus (Calcium Carbonate-Vitamin D W/) 1 Tab Tab 600 Mg PO BID 03/20/14 Reported Zyloprim (Allopurinol) 100 Mg Tab 100 Mg PO LUNCH 11/05/13 Reported Ascorbic Acid 500 Mg Tab 500 Mg PO BID 11/26/12 Reported L-Lysine (Lysine) 500 Mg Cap 500 Mg PO QPM 07/31/12 Reported Theragran-M (Multiple Vitamins W/ Minerals) 1 Tab Tab 1 Tablet PO QAM 07/14/12 Reported Lexapro (Escitalopram Oxalate) 20 Mg Tab 20 Mg PO QAM 07/14/12 Reported Protonix (Pantoprazole Sodium) 40 Mg Tab 40 Mg PO BID 01/10/12 Reported Vesicare (Solifenacin) 10 Mg Tab 10 Mg PO HS 01/18/11 Reported Pyridium (Phenazopyridine HCl) 200 Mg Tab 200 Mg PO DAILY PRN 08/27/10 Reported Current Inpatient Medications Current Inpatient Medications Medications (Trade) Dose Ordered Sig/Tasha Route Start Time Stop Time Status Last Admin Dose Admin Ioversol (Optiray 320) 100 ml UD PRN IV 05/28/16 20:15 06/01/16 20:14 Acetaminophen (Tylenol Tab) 650 mg Q4H PRN PO 05/28/16 23:00 06/27/16 22:59 05/29/16 06:49 650 MG Lorazepam (Ativan Inj) 0.5 mg Q4H PRN IV 05/28/16 23:00 06/27/16 22:59 Levalbuterol (Xopenex 1.25MG/ 3ML Neb) 1.25 mg Q4H PRN INH 05/28/16 23:00 06/27/16 22:59 Ondansetron HCl (Zofran Inj) 4 mg Q6H PRN IV 05/28/16 23:00 06/27/16 22:59 Morphine Sulfate (MoRPHine SULFATE INJ) 2 mg Q2H PRN IV 05/28/16 23:00 06/11/16 22:59 Allopurinol (Zyloprim Tab) 100 mg DAILY PO 05/29/16 09:00 06/28/16 08:59 05/29/16 09:29 100 MG Ascorbic Acid (Vitamin C Tab) 500 mg BID PO 05/29/16 09:00 06/28/16 08:59 05/29/16 09:29 500 MG Aspirin (Ecotrin Tab) 81 mg DAILY PO 05/29/16 09:00 06/28/16 08:59 05/29/16 09:26 81 MG Dipyridamole/ Aspirin (Aggrenox 200MG/ 25MG Cap) 1 cap BID PO 05/29/16 09:00 06/28/16 08:59 05/29/16 09:32 1 CAP Buspirone HCl (BusPAR TAB) 7.5 mg BID PO 05/29/16 09:00 06/28/16 08:59 05/29/16 09:26 7.5 MG Calcium/Vitamin D (Caltrate Plus Tab) 1 tab BID PO 05/29/16 09:00 06/28/16 08:59 05/29/16 09:29 1 TAB Cholecalciferol (Vitamin D Tab) 1,000 inter.unit BID PO 05/29/16 09:00 06/28/16 08:59 05/29/16 09:33 1,000 INTER.UNIT Clopidogrel Bisulfate (plAVix TAB) 75 mg DAILY PO 05/29/16 09:00 06/28/16 08:59 05/29/16 09:29 75 MG Docusate Sodium (coLACE CAP) 100 mg BID PO 05/29/16 09:00 06/28/16 08:59 05/29/16 09:30 100 MG Escitalopram Oxalate (Lexapro Tab) 20 mg QAM PO 05/29/16 09:00 06/28/16 08:59 05/29/16 09:30 20 MG Fluconazole (Diflucan Tab) 100 mg QPM PO 05/29/16 21:00 06/08/16 20:59 Gabapentin (Neurontin Cap) 100 mg QAM PO 05/29/16 09:00 06/28/16 08:59 05/29/16 09:33 100 MG Gabapentin (Neurontin Cap) 200 mg 1600 PO 05/29/16 16:00 06/28/16 15:59 Gabapentin (Neurontin Tab) 600 mg HS PO 05/29/16 21:00 06/28/16 20:59 Magnesium Chloride (Slow-Mag Tab) 64 mg BID PO 05/29/16 09:00 06/28/16 08:59 05/29/16 09:29 64 MG Methenamine Hippurate (Urex Tab) 1 gm BID PO 05/29/16 09:00 06/08/16 08:59 05/29/16 09:32 1 GM Pantoprazole Sodium (Protonix Tab) 40 mg BID PO 05/29/16 09:00 06/28/16 08:59 05/29/16 09:33 40 MG Phenazopyridine HCl (Pyridium Tab) 200 mg DAILY PRN PO 05/28/16 23:00 06/27/16 22:59 Quetiapine Fumarate (seroQUEL TAB) 25 mg HS PRN PO 05/28/16 23:00 06/27/16 22:59 Miscellaneous Information (Order Awaiting Action) 1 ea QS N/A 05/29/16 08:00 06/28/16 07:59 Pentosan Polysulfate Sodium (Elmiron) 100 mg BID PO 05/29/16 09:00 06/28/16 08:59 05/29/16 09:29 100 MG Artificial Tears (Artificial Tears) 2 drops BID PRN OPB 05/29/16 04:45 06/28/16 04:44 Solifenacin (Vesicare) 10 mg HS PO 05/29/16 21:00 06/28/16 20:59 Thiamine HCl (Vitamin B-1 Tab) 100 mg DAILY PO 05/29/16 09:00 06/28/16 08:59 05/29/16 09:30 100 MG Artificial Tears (Lacri-Lube Oph Oint) 1 appln HS OPB 05/29/16 21:00 06/28/16 20:59 Lorazepam (Ativan Tab) 0.5 mg DAILY PRN PO 05/29/16 02:00 06/28/16 01:59 Insulin Aspart (novoLOG ASPART) SLIDING SCALE G... ACHS SC 05/29/16 06:45 06/28/16 06:59 Bisacodyl (Dulcolax Supp) 10 mg TuTh@0530 OR 05/29/16 06:15 06/28/16 06:14 05/29/16 06:49 10 MG Bisacodyl (Dulcolax Supp) 10 mg SuMoWeFrSa@2330 OR 05/30/16 23:30 06/29/16 23:29 Amlodipine Besylate (Norvasc Tab) 2.5 mg DAILY PO 05/29/16 09:00 06/28/16 08:59 05/29/16 09:36 2.5 MG Polyethylene (Miralax Powder Packet) 17 gm QPM PO 05/29/16 21:00 06/28/16 20:59 Albuterol/ Ipratropium (Duoneb) 3 ml Q6R PRN INH 05/29/16 09:45 06/28/16 09:44 Albuterol 2 puffs 2 puffs BID INH 05/29/16 09:00 06/28/16 08:59 Ertapenem/Sodium Chloride (Invanz Iv/Nss Ad-Van 50ml) 50 ml @ 120 mls/hr Q24H IV 05/29/16 10:45 06/05/16 10:44 UNV Review of Systems Constitutional: + fatigue Eyes: No worsening of vision ENT: + problem reported (Tracheostomy, increased secretions suctioned prior to admission, some brown, mostly white), + sore throat (FLIGHT PURSER), No hearing loss Respiratory: + sputum Cardiovascular: No chest pain Abdomen: + problem reported (Bowel movement with jessenia blood for caregivers prior to admission) Musculoskeletal: + problem reported (Quadriplegic) Genitourinary - Female: + problem reported (chronic Staples, recurrent UTI's) Neurologic: + problem reported (Quadriplegic) Integumentary: + new/changing skin lesions (bruising FLIGHT PURSER and currently, especially around trach), No rash Physical Exam Date Time Temp Pulse Resp B/P Pulse Ox O2 Delivery O2 Flow Rate FiO2 05/29/16 06:00 70 20 155/77 93 Mechanical Ventilator 4.0 05/29/16 04:00 36.5 63 18 146/77 92 Mechanical Ventilator 4.0 05/29/16 04:00 Mechanical Ventilator 4.0 05/29/16 02:00 74 22 156/82 92 Mechanical Ventilator 4.0 05/29/16 01:45 36.4 74 16 143/70 97 Mechanical Ventilator 05/29/16 00:04 68 16 138/75 95 Mechanical Ventilator 4.0 05/28/16 20:43 74 28 142/52 98 Mechanical Ventilator 4.0 05/28/16 19:58 Mechanical Ventilator 05/28/16 19:31 51 16 97 Mechanical Ventilator 3.0 05/28/16 19:18 36.4 57 16 117/54 100 Mechanical Ventilator 3.0 05/28/16 19:15 51 General Appearance: WD/WN, + mild distress (headache, pain) Head: normocephalic Eyes: normal inspection ENT: hearing grossly normal Neck: + pertinent finding (tracheostomy) Respiratory/Chest: + crackles (left posterior base), + pertinent finding ( ventilated) Cardiovascular: regular rate, rhythm, no gallop, no murmur Abdomen/GI: normal bowel sounds, soft, no organomegaly Back: normal inspection, no CVA tenderness Extremities/Musculoskelatal: + pertinent finding (Quadriplegic) Neurologic/Psych: alert, + depressed affect Skin: + pertinent finding (note erythema/bruising around tracheostomy site) Laboratory Results CT ANGIOGRAM OF THE CHEST CLINICAL HISTORY: Dyspnea. COMPARISON STUDY: Chest CT dated 01/25/2014. Chest x-ray dated 05/28/16. TECHNIQUE: Following the IV administration of 82 cc of Optiray 320, CT angiogram of the chest was performed from the upper abdomen to the thoracic inlet utilizing the pulmonary embolus protocol. Images are reviewed in the axial, sagittal, and coronal planes. 3-D MIPS images are created and assessed. IV contrast was administered without complication. The examination is degraded by streak artifact from the patient's arms which could not be elevated above the chest, as well as by motion artifact. CT DOSE: 610.47 mGy.cm FINDINGS: Thyroid: Imaged portions of the thyroid gland are normal in size and attenuation. Thoracic aorta: There is mild atherosclerotic calcification of the thoracic aorta, which is normal in caliber and demonstrates standard 3-vessel arch anatomy. No dissection is seen. A right subclavian central venous infusion port is in place. A left subclavian central venous catheter is identified. Pulmonary vasculature: The main pulmonary arteries are dilated suggesting pulmonary artery hypertension. There are no filling defects identified in main, lobar, or segmental pulmonary branches to suggest pulmonary embolus. Heart: The heart is enlarged and without pericardial effusion. The coronary arteries are densely calcified. Lungs and pleural spaces: A tracheostomy is in place. The trachea appears clear. Evaluation of the lung parenchyma is degraded by respiratory motion artifact. There are small pleural effusions with dense bibasilar airspace consolidation, left greater than right. Mediastinum: There is mediastinal lymphadenopathy. Mediastinal lymph nodes measure up to 1.6 cm in short axis. [place]: Clear. Axillae: There is no axillary lymphadenopathy. Upper abdomen: There is a small hiatal hernia. The spleen appears enlarged. Esophagus is filled with fluid to the level of the upper thorax. Partially visualized upper abdominal viscera is otherwise grossly within normal limits. Skeletal structures: The skeletal structures are heterogeneously osteopenic. Degenerative change and hyperkyphosis are noted in the thoracic spine. Compression deformities are noted in T1, T3, T4, T5, T9, T11, L1, and L2. No lytic or blastic bony lesions are seen. IMPRESSION: 1. Significantly motion and streak artifact degraded examination. 2. There is no evidence of pulmonary embolus in the main, lobar, or segmental pulmonary arteries. 3. Cardiomegaly with evidence of pulmonary artery hypertension. 4. There are small pleural effusions with dense bibasilar airspace consolidation, left greater than right. Correlate clinically for evidence of pneumonia/aspiration pneumonitis. Radiographic follow-up to resolution is recommended. 5. The esophagus is patulous and fluid-filled. Note that this may place the patient at risk for aspiration. 6. Mediastinal lymphadenopathy is nonspecific and may be on a reactive basis. Clinical correlation will be required. 7. Additional changes as above. Item Value Date Time MRSA DNA Surveillance Screen - Final Complete 05/29/16 0200 Nasal Specimen Negative for MRSA by DNA Probe Blood Culture Received 05/28/162034 Blood Pending Blood Culture Received 05/28/16 194 Blood Pending Last 24 Hours Test 05/28/16 19:45 05/28/16 19:54 05/28/16 20:00 05/29/16 00:15 White Blood Count 9.15 K/uL Red Blood Count 4.40 M/uL Hemoglobin 13.0 g/dL Hematocrit 39.8 % Mean Corpuscular Volume 90.5 fL Mean Corpuscular Hemoglobin 29.5 pg Mean Corpuscular Hemoglobin Concent 32.7 g/dl Platelet Count 117 K/uL Mean Platelet Volume 11.3 fL Neutrophils (%) (Auto) 85.1 % Lymphocytes (%) (Auto) 6.7 % Monocytes (%) (Auto) 7.7 % Eosinophils (%) (Auto) 0.2 % Basophils (%) (Auto) 0.0 % Neutrophils # (Auto) 7.79 K/uL Lymphocytes # (Auto) 0.61 K/uL Monocytes # (Auto) 0.70 K/uL Eosinophils # (Auto) 0.02 K/uL Basophils # (Auto) 0.00 K/uL RDW Standard Deviation 62.0 fL RDW Coefficient of Variation 18.6 % Immature Granulocyte % (Auto) 0.3 % Immature Granulocyte # (Auto) 0.03 K/uL Prothrombin Time 11.6 SECONDS Prothromb Time International Ratio 1.1 Activated Partial Thromboplast Time 74.4 SECONDS Partial Thromboplastin Ratio 2.9 Sodium Level 126 mmol/L 131 mmol/L Potassium Level 7.0 mmol/L 5.7 mmol/L Chloride Level 96 mmol/L 98 mmol/L Carbon Dioxide Level 21 mmol/L 24 mmol/L Anion Gap 9.0 mmol/L 9.0 mmol/L Blood Urea Nitrogen 48 mg/dl 44 mg/dl Creatinine 1.40 mg/dl 1.40 mg/dl Est Creatinine Clear Calc Drug Dose 34.4 ml/min 34.4 ml/min Estimated GFR () 44.3 44.3 Estimated GFR (Non- 38.2 38.2 BUN/Creatinine Ratio 34.3 31.5 Random Glucose 160 mg/dl 187 mg/dl Calcium Level 8.6 mg/dl 8.6 mg/dl Total Bilirubin 0.3 mg/dl Aspartate Amino Transf (AST/SGOT) 28 U/L Alanine Aminotransferase (ALT/SGPT) 51 U/L Alkaline Phosphatase 226 U/L Total Creatine Kinase 33 U/L Creatine Kinase MB 5.6 ng/ml Creatine Kinase MB Ratio 17.0 Troponin I < 0.015 ng/ml Total Protein 7.6 gm/dl Albumin 2.2 gm/dl Globulin 5.4 gm/dl Albumin/Globulin Ratio 0.4 Bedside Lactic Acid Venous 0.69 mmol/L Urine Color YELLOW Urine Appearance SL CLOUDY Urine pH 5.5 Urine Specific [place] 1.025 Urine Protein TRACE Urine Glucose (UA) NEG Urine Ketones NEG Urine Occult Blood 2+ Urine Nitrite NEG Urine Bilirubin NEG Urine Urobilinogen NEG Urine Leukocyte Esterase MODERATE Influenza Type A (RT-PCR) Neg for Influ A Influenza Type B (RT-PCR) Neg for Influ B Phosphorus Level 5.3 mg/dl Magnesium Level 3.0 mg/dl Test 05/29/16 06:45 05/29/16 06:51 White Blood Count 6.96 K/uL Red Blood Count 4.31 M/uL Hemoglobin 12.7 g/dL Hematocrit 38.5 % Mean Corpuscular Volume 89.3 fL Mean Corpuscular Hemoglobin 29.5 pg Mean Corpuscular Hemoglobin Concent 33.0 g/dl Platelet Count 108 K/uL Mean Platelet Volume 9.8 fL Neutrophils (%) (Auto) 85.1 % Lymphocytes (%) (Auto) 7.8 % Monocytes (%) (Auto) 6.8 % Eosinophils (%) (Auto) 0.0 % Basophils (%) (Auto) 0.0 % Neutrophils # (Auto) 5.93 K/uL Lymphocytes # (Auto) 0.54 K/uL Monocytes # (Auto) 0.47 K/uL Eosinophils # (Auto) 0.00 K/uL Basophils # (Auto) 0.00 K/uL RDW Standard Deviation 59.8 fL RDW Coefficient of Variation 18.2 % Immature Granulocyte % (Auto) 0.3 % Immature Granulocyte # (Auto) 0.02 K/uL Sodium Level 135 mmol/L Potassium Level 4.8 mmol/L Chloride Level 100 mmol/L Carbon Dioxide Level 23 mmol/L Anion Gap 12.0 mmol/L Blood Urea Nitrogen 39 mg/dl Creatinine 1.20 mg/dl Est Creatinine Clear Calc Drug Dose 39.4 ml/min Estimated GFR () 53.4 Estimated GFR (Non- 46.1 BUN/Creatinine Ratio 32.5 Random Glucose 128 mg/dl Calcium Level 8.7 mg/dl Phosphorus Level 4.6 mg/dl Magnesium Level 2.8 mg/dl Total Bilirubin 0.2 mg/dl Direct Bilirubin 0.1 mg/dl Aspartate Amino Transf (AST/SGOT) 23 U/L Alanine Aminotransferase (ALT/SGPT) 42 U/L Alkaline Phosphatase 230 U/L Total Protein 7.3 gm/dl Albumin 2.0 gm/dl Procalcitonin 0.35 ng/mL Random Cortisol 41.24 mcg/dl Hepatitis C Antibody Screen NEG Bedside Glucose 118 mg/dl Assessment & Plan Patient with history of recurrent UTI's, aspiration pneumonia, and quadriplegia who presented to the ED not feeling well multiple days ago. Her Urine culture at the time was negative. Blood cultures are pending from current admission. CT scan of the chest shows potential aspiration pneumonia along with esophageal changes putting her at risk for aspiration. Seems likely that this patient could have a viral illness complicating her usual state of health, but with crackles at the left base on exam, would recommend continued treatment for possible aspiration pneumonia pending improvement. Noted that Levaquin and Flagyl were D/C'd this morning. Will start IV Ertapenem pending improvement. We will follow. PROVIDER ADDENDUM: Patient examined and reviewed with Ms. Martinez. Agree with above assessment.
[2016-05-29] MEDS: MoRPHine SULFATE 2 MG/ML CARP IV PRN ×2 (11:17→17:43)
[2016-05-29 11:46] LABS: ESTIMATED AVERAGE GLUCOSE 126 mg/dl; HA1C FLAG Normal (Normal)
[2016-05-29] MEDS: ERTAPENEM IV 1 GM in SODIUM CHLOR 0.9% AD-VAN 50ML 50 ML IV SCH (11:59)
[2016-05-29] MEDS: LORAZEPAM 2 MG/ML 1 ML VIAL IV PRN (11:59)
[2016-05-29] MEDS: POLYETHYLENE (MIRALAX) 17 GM PACK PO SCH (16:50)
[2016-05-29 17:21] LABS: BUN/CREATININE RATIO 33.8 (10-20); CALCIUM 8.7 mg/dl (8.5-10.1); POTASSIUM 4.7 mmol/L (3.5-5.1)
[2016-05-29 17:27] LABS: URINE APPEARANCE CLOUDY (CLEAR); URINE BILIRUBIN NEG (NEG); URINE COLOR YELLOW; URINE EPITHELIAL CELL AUTO >30 /lpf (0-5); URINE NITRITE NEG (NEG); URINE SPECIFIC GRAVITY 1.011 (1.000-1.030); UROBILINOGEN NEG (NEG)
[2016-05-29 17:28] LABS: MANUAL MICROSCOPIC REQUIRED? NO; REVIEW REQ? YES
[2016-05-29] MEDS: GABAPENTIN 600 MG TAB PO SCH (21:05)
[2016-05-29] MEDS: SOLIFENACIN 10 MG TAB PO SCH (21:06)
[2016-05-29] MEDS: FLUCONAZOLE 100 MG TAB PO SCH (21:08)
[2016-05-29] MEDS: ARTIFICIAL TEARS OP OINT 3.5 GM TUBE OPB SCH (21:11)
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
[2016-05-29] MEDS: QUETIAPINE FUMARATE 25 MG TAB PO SCH (22:23)
[2016-05-30] VITALS (7 sets, daily range): BP systolic 125–151; BP diastolic 60–81; PULSE 72–82; TEMP 36.4–36.5; O2SAT 92–99
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
[2016-05-30] MEDS: ALBUT/IPRATROP 3MG/0.5MG NEB 3 ML VIAL INH SCH ×4 (01:58→19:19)
[2016-05-30 06:43] LABS: BASO % 0.1 %; BASO ABS # 0.01 K/uL (0-0.2); COMPLETE YES; EOS % 0.1 %; HEMATOCRIT 37.6 % (37-47); IG% 0.3 %; LYMPH % 5.4 %; LYMPH ABS # 0.42 K/uL (1.2-3.4); MEAN CELL VOLUME 88.7 fL (80-100); MEAN CORPUSCULAR HEMOGLOBIN 28.8 pg (25-34); MEAN CORPUSCULAR HGB CONC 32.4 g/dl (32-36); MONO % 8.3 %; NEUT % 85.8 %; PLATELET COUNT 119 K/uL (130-400); RED BLOOD COUNT 4.24 M/uL (4.2-5.4); WHITE BLOOD COUNT 7.84 K/uL (4.8-10.8)
[2016-05-30] MEDS: INSULIN ASPART 100 UNITS/ML 3 ML PEN SC SCH ×4 (06:45→21:00)
[2016-05-30 07:26] LABS: ALKALINE PHOSPHATASE 223 U/L (45-117); ALT/SGPT 36 U/L (12-78); AST/SGOT 18 U/L (15-37); BLOOD UREA NITROGEN 31 mg/dl (7-18); CALCIUM 8.9 mg/dl (8.5-10.1); CARBON DIOXIDE 26 mmol/L (21-32); CHLORIDE 105 mmol/L (98-107); CREATININE 0.89 mg/dl (0.60-1.20); GLUCOSE 126 mg/dl (70-99); MAGNESIUM 2.8 mg/dl (1.8-2.4); PHOSPHORUS 3.8 mg/dl (2.5-4.9); POTASSIUM 3.9 mmol/L (3.5-5.1); SODIUM 139 mmol/L (136-145)
--- NOTE | 2016-05-30 09:59 | DIAGNOSTIC IMAGING REPORT ---
SINUS CT CT DOSE: 628.13 mGy.cm HISTORY: headache, nasal discharge TECHNIQUE: Multiaxial CT images of the paranasal sinuses were performed and reformatted in the coronal plane without the use of contrast. COMPARISON: Maxillofacial CT 10/27/2013. FINDINGS: Complete opacification of the hypoplastic left frontal sinus and the majority left anterior ethmoid air cells which remains unchanged. Small fluid levels resulting in partial opacification of the left posterior ethmoid air cells, right ethmoid air cells, and sphenoid sinuses. There is mild mucosal thickening and small fluid levels within the bilateral maxillary sinuses. This has progressed in the interval. The right mastoid air cells are clear. Partial opacification of the left mastoid air cells with multiple small fluid levels. There is opacification of bilateral ethmoid infundibula. The left middle turbinate may be hypoplastic or partially resected. The orbital floors and lamina papyracea are intact. The cribriform plates and ethmoid roofs appear maintained. Minimal right nasal septal deviation with a small right-sided nasal spur. 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 IMPRESSION: 1. Progressive acute on chronic paranasal sinusitis as described above. 2. Small left mastoid effusion. Electronically signed by: Iban Hoffman M.D. 05/30/2016 9:58 AM Dictated Date/Time: 05/30/2016 9:52 AM
[2016-05-30] MEDS: METHENAMINE HIPPURATE 1 GM TAB PO SCH ×2 (10:13→21:33)
[2016-05-30] MEDS: MAGNESIUM CHLORIDE 64MG DELAYED REL TAB PO SCH ×2 (10:13→21:33)
[2016-05-30] MEDS: DOCUSATE SODIUM 100 MG CAP PO SCH ×2 (10:13→21:35)
[2016-05-30] MEDS: PENTOSAN POLYSULFATE SODIUM 100 MG CAP PO SCH ×2 (10:13→21:35)
[2016-05-30] MEDS: THIAMINE HCL 100 MG TAB PO SCH (10:13)
[2016-05-30] MEDS: PANTOprazole SOD 40 MG TAB PO SCH ×2 (10:13→21:34)
[2016-05-30] MEDS: CLOPIDOGREL BISULFATE 75 MG TAB PO SCH (10:13)
[2016-05-30] MEDS: ASPIRIN 81 MG ECTAB PO SCH (10:13)
[2016-05-30] MEDS: GABAPENTIN 100 MG CAP PO SCH (10:13)
[2016-05-30] MEDS: CHOLECALCIFEROL 1000 INTER.UNIT TAB PO SCH ×2 (10:14→21:35)
[2016-05-30] MEDS: DIPYRIDAMOLE/ASPIRIN CAP PO SCH ×2 (10:14→21:36)
[2016-05-30] MEDS: BusPIRone 15 MG TAB PO SCH ×2 (10:14→21:32)
[2016-05-30] MEDS: ALLOPURINOL 100 MG TAB PO SCH (10:15)
[2016-05-30] MEDS: ESCITALOPRAM OXALATE 20 MG TAB PO SCH (10:15)
[2016-05-30] MEDS: AMLODIPINE BESYLATE 5 MG TAB PO SCH (10:15)
[2016-05-30] MEDS: ASCORBIC ACID 500 MG TAB PO SCH ×2 (10:16→21:34)
[2016-05-30] MEDS: CALCIUM 600MG + VIT D 400 IU TAB PO SCH ×2 (10:16→21:34)
--- NOTE | 2016-05-30 10:37 | DIAGNOSTIC IMAGING REPORT ---
CHEST ONE VIEW PORTABLE CLINICAL HISTORY: Worsening Breath Sounds; Risk of Aspiration PNA COMPARISON STUDY: Chest radiograph and chest CT May 28, 2016. FINDINGS: Bilateral subclavian [id number] and a tracheostomy tube are noted. There is no pneumothorax. Mild cardiomegaly is unchanged. Perihilar and bibasilar opacities persist. There is pulmonary vascular congestion without overt pulmonary edema. IMPRESSION: Persistent perihilar and bibasilar opacities which may reflect pneumonia or atelectasis. Electronically signed by: Diallo Parker M.D. 05/30/2016 10:35 AM Dictated Date/Time: 05/30/2016 10:34 AM
[2016-05-30] MEDS: ERTAPENEM IV 1 GM in SODIUM CHLOR 0.9% AD-VAN 50ML 50 ML IV SCH (12:54)
--- NOTE | 2016-05-30 15:01 | Infectious Disease Progress Nt ---
Progress Note Date of Service May 30, 2016. Subjective Pt evaluation today including: conversation w/ patient, conversation w/ family (caregiver), physical exam, chart review, lab review, review of studies, conversation w/ school plant consultant (Dr. Mixon), review of inpatient medication list Patient's creatinine was 0.89 today. Alk Phos continues to be elevated at 223. WBC count was 7.84. She is very lethargic today, and she only stays awake for brief periods of time. Her caregiver states that she continues to have a large amount of secretions from her tracheostomy which is light brown/barron in color. Sinus CT scan showed progressive acute on chronic paranasal sinusitis and small left mastoid effusion. Repeat chest X-Ray showed persistent perihilar and bibasilar opacities. The patient states that she continues to have congestion but her headache is improved today. Repeat urine culture showing no growth. Sputum culture showing light normal rosalina. Blood cultures continue to show no growth. All Other Systems: Reviewed and Negative Medications Current Inpatient Medications Medications (Trade) Dose Ordered Sig/Tasha Route Start Time Stop Time Status Last Admin Dose Admin Ioversol (Optiray 320) 100 ml UD PRN IV 05/28/16 20:15 06/01/16 20:14 Acetaminophen (Tylenol Tab) 650 mg Q4H PRN PO 05/28/16 23:00 06/27/16 22:59 05/29/16 06:49 650 MG Lorazepam (Ativan Inj) 0.5 mg Q4H PRN IV 05/28/16 23:00 06/27/16 22:59 05/29/16 11:59 0.5 MG Levalbuterol (Xopenex 1.25MG/ 3ML Neb) 1.25 mg Q4H PRN INH 05/28/16 23:00 06/27/16 22:59 Ondansetron HCl (Zofran Inj) 4 mg Q6H PRN IV 05/28/16 23:00 06/27/16 22:59 Morphine Sulfate (MoRPHine SULFATE INJ) 2 mg Q2H PRN IV 05/28/16 23:00 06/11/16 22:59 05/29/16 17:43 2 MG Allopurinol (Zyloprim Tab) 100 mg DAILY PO 05/29/16 09:00 06/28/16 08:59 05/30/16 10:15 100 MG Ascorbic Acid (Vitamin C Tab) 500 mg BID PO 05/29/16 09:00 06/28/16 08:59 05/30/16 10:16 500 MG Aspirin (Ecotrin Tab) 81 mg DAILY PO 05/29/16 09:00 06/28/16 08:59 05/30/16 10:13 81 MG Dipyridamole/ Aspirin (Aggrenox 200MG/ 25MG Cap) 1 cap BID PO 05/29/16 09:00 06/28/16 08:59 05/30/16 10:14 1 CAP Buspirone HCl (BusPAR TAB) 7.5 mg BID PO 05/29/16 09:00 06/28/16 08:59 05/30/16 10:14 7.5 MG Calcium/Vitamin D (Caltrate Plus Tab) 1 tab BID PO 05/29/16 09:00 06/28/16 08:59 05/30/16 10:16 1 TAB Cholecalciferol (Vitamin D Tab) 1,000 inter.unit BID PO 05/29/16 09:00 06/28/16 08:59 05/30/16 10:14 1,000 INTER.UNIT Clopidogrel Bisulfate (plAVix TAB) 75 mg DAILY PO 05/29/16 09:00 06/28/16 08:59 05/30/16 10:13 75 MG Docusate Sodium (coLACE CAP) 100 mg BID PO 05/29/16 09:00 06/28/16 08:59 05/30/16 10:13 100 MG Escitalopram Oxalate (Lexapro Tab) 20 mg QAM PO 05/29/16 09:00 06/28/16 08:59 05/30/16 10:15 20 MG Fluconazole (Diflucan Tab) 100 mg QPM PO 05/29/16 21:00 06/08/16 20:59 05/29/16 21:08 100 MG Gabapentin (Neurontin Cap) 100 mg QAM PO 05/29/16 09:00 06/28/16 08:59 05/30/16 10:13 100 MG Gabapentin (Neurontin Cap) 200 mg 1600 PO 05/29/16 16:00 06/28/16 15:59 Gabapentin (Neurontin Tab) 600 mg HS PO 05/29/16 21:00 06/28/16 20:59 05/29/16 21:05 600 MG Magnesium Chloride (Slow-Mag Tab) 64 mg BID PO 05/29/16 09:00 06/28/16 08:59 05/30/16 10:13 64 MG Methenamine Hippurate (Urex Tab) 1 gm BID PO 05/29/16 09:00 06/08/16 08:59 05/30/16 10:13 1 GM Pantoprazole Sodium (Protonix Tab) 40 mg BID PO 05/29/16 09:00 06/28/16 08:59 05/30/16 10:13 40 MG Phenazopyridine HCl (Pyridium Tab) 200 mg DAILY PRN PO 05/28/16 23:00 06/27/16 22:59 Miscellaneous Information (Order Awaiting Action) 1 ea QS N/A 05/29/16 08:00 06/28/16 07:59 Pentosan Polysulfate Sodium (Elmiron) 100 mg BID PO 05/29/16 09:00 06/28/16 08:59 05/30/16 10:13 100 MG Artificial Tears (Artificial Tears) 2 drops BID PRN OPB 05/29/16 04:45 06/28/16 04:44 Solifenacin (Vesicare) 10 mg HS PO 05/29/16 21:00 06/28/16 20:59 05/29/16 21:06 10 MG Thiamine HCl (Vitamin B-1 Tab) 100 mg DAILY PO 05/29/16 09:00 06/28/16 08:59 05/30/16 10:13 100 MG Artificial Tears (Lacri-Lube Oph Oint) 1 appln HS OPB 05/29/16 21:00 06/28/16 20:59 05/29/16 21:11 1 APPLN Lorazepam (Ativan Tab) 0.5 mg DAILY PRN PO 05/29/16 02:00 06/28/16 01:59 Insulin Aspart (novoLOG ASPART) SLIDING SCALE G... ACHS SC 05/29/16 06:45 06/28/16 06:59 Bisacodyl (Dulcolax Supp) 10 mg TuTh@0530 DC 05/29/16 06:15 06/28/16 06:14 05/29/16 06:49 10 MG Bisacodyl (Dulcolax Supp) 10 mg SuMoWeFrSa@2330 DC 05/30/16 23:30 06/29/16 23:29 Amlodipine Besylate (Norvasc Tab) 2.5 mg DAILY PO 05/29/16 09:00 06/28/16 08:59 05/30/16 10:15 2.5 MG Polyethylene 17 gm 17 gm QPM PO 05/29/16 21:00 06/28/16 20:59 05/29/16 16:50 17 GM Ertapenem/Sodium Chloride (Invanz Iv/Nss Ad-Van 50ml) 50 ml @ 120 mls/hr Q24H IV 05/29/16 12:00 06/05/16 11:59 05/30/16 12:54 120 MLS/HR Albuterol/ Ipratropium (Duoneb) 3 ml Q6R INH 05/29/16 15:00 06/28/16 14:59 05/30/16 07:31 3 ML Quetiapine Fumarate (seroQUEL TAB) 25 mg HS PO 05/29/16 22:00 06/28/16 21:59 05/29/16 22:23 25 MG Objective Vital Signs Date Time Temp Pulse Resp B/P Pulse Ox O2 Delivery O2 Flow Rate FiO2 05/30/16 12:00 Mechanical Ventilator 2.0 05/30/16 08:00 Mechanical Ventilator 2.0 05/30/16 04:00 Mechanical Ventilator 2.0 05/30/16 04:00 36.5 79 20 137/71 93 Mechanical Ventilator 2.0 05/30/16 01:58 72 20 95 Mechanical Ventilator 1.0 05/29/16 23:59 Mechanical Ventilator 2.0 05/29/16 23:59 36.5 75 18 130/58 95 Mechanical Ventilator 2.0 05/29/16 20:29 72 16 100 Mechanical Ventilator 1.0 05/29/16 20:00 Mechanical Ventilator 2.0 05/29/16 20:00 36.4 74 20 137/68 96 Mechanical Ventilator 2.0 05/29/16 18:00 75 17 95 05/29/16 17:59 74 20 154/ 94 05/29/16 17:00 84 22 97 05/29/16 16:58 82 24 166/90 96 2/14/17 16:00 95 Mechanical Ventilator 4.0 05/29/16 16:00 36.4 73 22 98 05/29/16 15:58 72 29 161/93 98 05/29/16 15:45 72 23 99 Mechanical Ventilator 2.0 05/29/16 15:39 71 17 146/88 96 05/29/16 15:29 72 20 146/88 97 05/29/16 15:00 73 18 96 Physical Exam General Appearance: WD/WN, + mild distress (lethargic, course breathing) Eyes: normal inspection ENT: hearing grossly normal Neck: + pertinent finding (tracheostomy) Respiratory/Chest: + pertinent finding (coarse upper respiratory sounds. Difficult to differentiate from lower respiratory sounds. ) Cardiovascular: regular rate, rhythm Abdomen: normal bowel sounds Neurologic/Psychiatric: + pertinent finding (quadriplegic) Skin: normal color, warm/dry, no rash Laboratory Results CHEST ONE VIEW PORTABLE CLINICAL HISTORY: Worsening Breath Sounds; Risk of Aspiration PNA COMPARISON STUDY: Chest radiograph and chest CT May 28, 2016. FINDINGS: Bilateral subclavian [id number] and a tracheostomy tube are noted. There is no pneumothorax. Mild cardiomegaly is unchanged. Perihilar and bibasilar opacities persist. There is pulmonary vascular congestion without overt pulmonary edema. IMPRESSION: Persistent perihilar and bibasilar opacities which may reflect pneumonia or atelectasis. SINUS CT CT DOSE: 628.13 mGy.cm HISTORY: headache, nasal discharge TECHNIQUE: Multiaxial CT images of the paranasal sinuses were performed and reformatted in the coronal plane without the use of contrast. COMPARISON: Maxillofacial CT 10/27/2013. FINDINGS: Complete opacification of the hypoplastic left frontal sinus and the majority left anterior ethmoid air cells which remains unchanged. Small fluid levels resulting in partial opacification of the left posterior ethmoid air cells, right ethmoid air cells, and sphenoid sinuses. There is mild mucosal thickening and small fluid levels within the bilateral maxillary sinuses. This has progressed in the interval. The right mastoid air cells are clear. Partial opacification of the left mastoid air cells with multiple small fluid levels. There is opacification of bilateral ethmoid infundibula. The left middle turbinate may be hypoplastic or partially resected. The orbital floors and lamina papyracea are intact. The cribriform plates and ethmoid roofs appear maintained. Minimal right nasal septal deviation with a small right-sided nasal spur. 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 IMPRESSION: 1. Progressive acute on chronic paranasal sinusitis as described above. 2. Small left mastoid effusion. Item Value Date Time Urine Culture - Preliminary Resulted 05/29/16 1710 Urine,Catheterized NO GROWTH - LESS THAN 1,000 COLONIES/... Gram Stain - Final Resulted 05/29/16 1430 Sputum Trach. Tube Suction MRSA DNA Surveillance Screen - Final Complete 05/29/16 0200 Nasal Specimen Negative for MRSA by DNA Probe Blood Culture - Preliminary Resulted 05/28/16 2035 Blood NO GROWTH TO DATE. Blood Culture - Preliminary Resulted 05/28/16 1945 Blood NO GROWTH TO DATE. Last 24 Hours Test 05/29/16 16:31 05/29/16 16:49 05/29/16 17:10 05/29/16 21:19 Bedside Glucose 132 mg/dl 134 mg/dl Sodium Level 134 mmol/L Potassium Level 4.7 mmol/L Chloride Level 101 mmol/L Carbon Dioxide Level 26 mmol/L Anion Gap 7.0 mmol/L Blood Urea Nitrogen 34 mg/dl Creatinine 1.00 mg/dl Est Creatinine Clear Calc Drug Dose 47.3 ml/min Estimated GFR () 66.6 Estimated GFR (Non- 57.4 BUN/Creatinine Ratio 33.8 Random Glucose 139 mg/dl Calcium Level 8.7 mg/dl Urine Color YELLOW Urine Appearance CLOUDY Urine pH 5.0 Urine Specific [place] 1.011 Urine Protein NEG Urine Glucose (UA) NEG Urine Ketones NEG Urine Occult Blood TRACE Urine Nitrite NEG Urine Bilirubin NEG Urine Urobilinogen NEG Urine Leukocyte Esterase LARGE Urine WBC (Auto) >30 /hpf Urine RBC (Auto) 0-4 /hpf Urine Hyaline Casts (Auto) 5-10 /lpf Urine Epithelial Cells (Auto) >30 /lpf Urine Bacteria (Auto) NEG Urine Renal Epithelial Cells 0-5 /lpf Test 05/30/16 06:14 05/30/16 06:16 05/30/16 10:53 White Blood Count 7.84 K/uL Red Blood Count 4.24 M/uL Hemoglobin 12.2 g/dL Hematocrit 37.6 % Mean Corpuscular Volume 88.7 fL Mean Corpuscular Hemoglobin 28.8 pg Mean Corpuscular Hemoglobin Concent 32.4 g/dl Platelet Count 119 K/uL Mean Platelet Volume 10.0 fL Neutrophils (%) (Auto) 85.8 % Lymphocytes (%) (Auto) 5.4 % Monocytes (%) (Auto) 8.3 % Eosinophils (%) (Auto) 0.1 % Basophils (%) (Auto) 0.1 % Neutrophils # (Auto) 6.73 K/uL Lymphocytes # (Auto) 0.42 K/uL Monocytes # (Auto) 0.65 K/uL Eosinophils # (Auto) 0.01 K/uL Basophils # (Auto) 0.01 K/uL RDW Standard Deviation 59.7 fL RDW Coefficient of Variation 18.6 % Immature Granulocyte % (Auto) 0.3 % Immature Granulocyte # (Auto) 0.02 K/uL Sodium Level 139 mmol/L Potassium Level 3.9 mmol/L Chloride Level 105 mmol/L Carbon Dioxide Level 26 mmol/L Anion Gap 8.0 mmol/L Blood Urea Nitrogen 31 mg/dl Creatinine 0.89 mg/dl Est Creatinine Clear Calc Drug Dose 53.5 ml/min Estimated GFR () 76.6 Estimated GFR (Non- 66.1 BUN/Creatinine Ratio 35.0 Random Glucose 126 mg/dl Calcium Level 8.9 mg/dl Phosphorus Level 3.8 mg/dl Magnesium Level 2.8 mg/dl Total Bilirubin 0.3 mg/dl Direct Bilirubin < 0.1 mg/dl Aspartate Amino Transf (AST/SGOT) 18 U/L Alanine Aminotransferase (ALT/SGPT) 36 U/L Alkaline Phosphatase 223 U/L Total Protein 6.8 gm/dl Albumin 2.0 gm/dl Bedside Glucose 134 mg/dl 113 mg/dl Assessment and Plan (1) vent dep Status: Chronic Onset: 10/23/2010 (2) Quadriplegia Status: Chronic Onset: 10/23/2010 (3) Chronic respiratory failure Status: Chronic Onset: 10/23/2010 (4) Chronic urinary tract infection Status: Chronic Onset: 11/26/2012 (5) Hyperkalemia Status: Acute Patient with history of recurrent UTI's, aspiration pneumonia, and quadriplegia who continues to appear ill. She continues to have increased secretions and is lethargic. Her sinus CT showed evidence of acute on chronic sinusitis, and her repeat CXR continued to show continued bibasilar opacities. Urine culture shows no growth. She continues on IV Ertapenem. MRSA nasal swab was negative, therefore do not feel that this patient needs broadened to include MRSA coverage for sinusitis/possible aspiration. We will continue to follow, but feel that this patient likely will require a couple more days of IV abx pending improvement. PROVIDER ADDENDUM: Patient reviewed with Ms. Martinez. Agree with above assessment.
--- NOTE | 2016-05-30 15:25 | PULMONARY PROGRESS NOTE ---
DATE: 05/30/2016 TIME: 02:35 p.m. SUBJECTIVE: The patient is awake today. Yesterday she was obtunded throat my visit, but she had been sedated. She seemingly has more secretions today. There has been some transient decrease in her oxygenation. She is now on 3 liters into the ventilator. When I asked her if she feels different than yesterday, she says she does not know. She remains overall weak. She did seem to try and answer questions somewhat. She is still having some headache. A CAT scan of the sinuses done yesterday showed evidence of acute on chronic paranasal sinusitis. There was partial opacification of the left mastoid air cells with multiple small fluid levels. The patient's primary caregivers think that the trach site has gotten a little reddened. PHYSICAL EXAMINATION: GENERAL: The patient appeared comfortable. VITAL SIGNS: She is afebrile with the most recent temperature of 36.5. She has not had any fevers. NECK: She has a trach in place. The trach was examined. I did not notice any significant irritation of the skin around the trach. HEART: Heart rate is 80 beats per minute. The rhythm is regular. Blood pressure 137/71. LUNGS: Auscultation of the chest reveals diffuse rhonchi bilaterally, these are increased from yesterday. Current saturation is 97%. ABDOMEN: Remains obese and mildly distended. There is some tympany to percussion. Bowel sounds were present but decreased. I do not know if she has had bowel movements. EXTREMITIES: Mildly edematous in the lower extremities. She is a quadriplegic and thus does not move. DIAGNOSTIC DATA: Chest x-ray was done today. This shows persistence of perihilar and bibasilar opacities which may reflect pneumonia or atelectasis. LABORATORY DATA: White count today is 7.84, hemoglobin is 12.2, platelets were 119,000. Electrolytes show sodium 139, potassium 3.9, chloride 105, bicarb 26. BUN 31, creatinine 0.89. Magnesium was elevated at 2.8. Alkaline phosphatase was elevated at 223. The patient's intake for May 29 was 2854 and the output was 3650, this reflects a negative output of 796 mL. ASSESSMENT: 1. Acute on chronic respiratory failure with hypoxia. 2. Atelectasis both lung bases. 3. Probable coexistent pneumonia. 4. Quadriplegia. 5. Pulmonary hypertension. 6. Sinusitis. 7. Urinary tract infection. RECOMMENDATIONS: I would continue to attempt to suction patient as well as possible. We did do a culture of her sputum which showed many polys, but few gram positive cocci. The culture reports light normal rosalina. The blood cultures have shown no growth. She remains on the nebulizer treatments and she is on ertapenem. I would continue with current therapy. MTDD
[2016-05-30 16:35] LABS: BUN/CREATININE RATIO 37.3 (10-20); CALCIUM 8.9 mg/dl (8.5-10.1); CREATININE 0.82 mg/dl (0.60-1.20); POTASSIUM 4.3 mmol/L (3.5-5.1)
[2016-05-30] MEDS: MoRPHine SULFATE 2 MG/ML CARP IV PRN (17:39)
[2016-05-30] MEDS: POLYETHYLENE (MIRALAX) 17 GM PACK PO SCH (17:39)
--- NOTE | 2016-05-30 19:18 | Progress Note ---
Post ICU Progress Note Date & Time May 30, 2016 at 19:02 Vital Signs Vital Signs Past 12 Hours Date Time Temp Pulse Resp B/P Pulse Ox O2 Delivery O2 Flow Rate FiO2 05/30/16 16:00 36.4 72 22 151/81 92 Mechanical Ventilator 2.0 05/30/16 16:00 92 Mechanical Ventilator 2.0 05/30/16 12:00 Mechanical Ventilator 2.0 05/30/16 12:00 36.4 73 24 125/60 96 Mechanical Ventilator 2.0 05/30/16 08:00 36.4 77 19 125/60 93 Mechanical Ventilator 2.0 05/30/16 08:00 Mechanical Ventilator 2.0 Notes Mental Status: alert / awake, participated in evaluation Nausea / Vomiting: adequately controlled Pain: adequately controlled Airway Patency, RR, SpO2: see Notes (Currently stable as listed below) BP & HR: stable & adequate Florence Ha is a 71-year-old female who presented to the hospital for increased shortness of breath and weakness who was found to be hyperkalemic with a lab value of 7.0. She was admitted to the ICU after receiving medical management for hyperkalemia and ultimately had normal potassium levels by that afternoon. During that visit I was initially not impressed with an ongoing pulmonary infection; however, today she sounds much worse with diffuse rhonchi and is more lethargic and tired than the previous day. My intention in visiting with Miss Farris was to sign off of her care and assist in getting her discharged home. However, instead I felt obligated to order a CXR which did not demonstrate improvement since admission. She was happy to report that "thank God" her headache was gone. She complained of no pain, or worsening shortness of breath; but I found her going back to sleep during my visit. I would like to see Florence remain at [facility] for continued observation until improvement in her presentation is noted. Though I am aware that she is eager to go home. She denied chest pain, pressure, abd pain, nausea , fever, chills, malaise. She reported to me that she felt improvement since admission. I am not convinced that this is true based on her physical presentation this afternoon. I feel that Ms. Farris is at risk of returning to the ICU, if not closely monitored. Vital Signs - as noted Laboratory Data - as noted Physical Exam: General - NAD, sleeping soundly in bed ENT - Mucosa dry Lungs - No paradoxical chest wall movement, coarse to auscultation bilaterally with diffuse rhonchi, bibasilar rales are also noted; no wheezes Heart - Reg rate and rhythm, No murmur, rubs, clicks, or gallops appreciated Abdomen - minimal BS present, no bruits noted, tympanic to percussion, soft, nontender, moderately distended, no organomegaly Extremities - No edema, pedal pulses intact Neuro - A&OX4 Sputum Culture Pending; no growth in Blood Cultures Reviewed progress notes, labs, and inpatient medication list Continue current management Additional recommendations: obtain CXR tomorrow Critical Care will not sign off at this time and will continue to follow the progress of this patient. Consults & Procedures Consultants: Pulmonary: Dr. Mixon Infectious Dz: Ms. Martinez
[2016-05-30] MEDS: ARTIFICIAL TEARS OP OINT 3.5 GM TUBE OPB SCH (21:00)
[2016-05-30] MEDS: GABAPENTIN 600 MG TAB PO SCH (21:33)
[2016-05-30] MEDS: FLUCONAZOLE 100 MG TAB PO SCH (21:34)
[2016-05-30] MEDS: SOLIFENACIN 10 MG TAB PO SCH (21:35)
[2016-05-30] MEDS: QUETIAPINE FUMARATE 25 MG TAB PO SCH (21:36)
[2016-05-30] MEDS: ACETAMINOPHEN 325 MG TAB PO PRN (21:38)
[2016-05-30] MEDS: SODIUM CHLORIDE 0.65% NA SOLN 45 ML (OCEAN) SCH (21:44)
[2016-05-30] MEDS ORDERED: EUCERIN CR 120 GM JAR EXT PRN (22:00)
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
[2016-05-30] MEDS: BISACODYL 10 MG SUPP PR SCH (23:30)
[2016-05-31] VITALS (8 sets, daily range): BP systolic 117–140; BP diastolic 53–83; PULSE 71–95; TEMP 36–36.4; O2SAT 93–99
[2016-05-31] MEDS: MoRPHine SULFATE 2 MG/ML CARP IV PRN (01:30)
[2016-05-31] MEDS: ALBUT/IPRATROP 3MG/0.5MG NEB 3 ML VIAL INH SCH ×3 (01:35→19:13)
[2016-05-31] MEDS: LORAZEPAM 2 MG/ML 1 ML VIAL IV PRN ×2 (03:09→11:02)
[2016-05-31] MEDS: BISACODYL 10 MG SUPP PR SCH (05:30)
[2016-05-31 05:58] LABS: HEMATOCRIT 39.2 % (37-47); MEAN CELL VOLUME 91.4 fL (80-100); MEAN CORPUSCULAR HEMOGLOBIN 28.9 pg (25-34); MEAN CORPUSCULAR HGB CONC 31.6 g/dl (32-36); MEAN PLATELET VOLUME 9.7 fL (7.4-10.4); PLATELET COUNT 120 K/uL (130-400); RED BLOOD COUNT 4.29 M/uL (4.2-5.4); WHITE BLOOD COUNT 11.49 K/uL (4.8-10.8)
[2016-05-31 06:24] LABS: ALT/SGPT 32 U/L (12-78); BLOOD UREA NITROGEN 30 mg/dl (7-18); BUN/CREATININE RATIO 42.3 (10-20); CALCIUM 8.7 mg/dl (8.5-10.1); CARBON DIOXIDE 26 mmol/L (21-32); CHLORIDE 104 mmol/L (98-107); CREATININE 0.71 mg/dl (0.60-1.20); GLUCOSE 109 mg/dl (70-99); MAGNESIUM 2.6 mg/dl (1.8-2.4); POTASSIUM 4.5 mmol/L (3.5-5.1); SODIUM 139 mmol/L (136-145)
[2016-05-31 06:27] LABS: ALKALINE PHOSPHATASE 224 U/L (45-117); AST/SGOT 18 U/L (15-37); PHOSPHORUS 4.2 mg/dl (2.5-4.9)
[2016-05-31 06:36] LABS: BASO % 0.1 %; BASO ABS # 0.01 K/uL (0-0.2); COMPLETE YES; EOS % 0.1 %; IG% 0.3 %; LYMPH ABS # 0.46 K/uL (1.2-3.4); NEUT % 89.5 %
[2016-05-31] MEDS: INSULIN ASPART 100 UNITS/ML 3 ML PEN SC SCH ×4 (06:45→21:00)
[2016-05-31] MEDS: AMLODIPINE BESYLATE 5 MG TAB PO SCH (08:32)
[2016-05-31] MEDS: ASPIRIN 81 MG ECTAB PO SCH (08:32)
[2016-05-31] MEDS: DIPYRIDAMOLE/ASPIRIN CAP PO SCH ×2 (08:32→21:24)
[2016-05-31] MEDS: CALCIUM 600MG + VIT D 400 IU TAB PO SCH ×2 (08:32→21:25)
[2016-05-31] MEDS: ALLOPURINOL 100 MG TAB PO SCH (08:32)
[2016-05-31] MEDS: BusPIRone 15 MG TAB PO SCH ×2 (08:33→21:25)
[2016-05-31] MEDS: CLOPIDOGREL BISULFATE 75 MG TAB PO SCH (08:33)
[2016-05-31] MEDS: CHOLECALCIFEROL 1000 INTER.UNIT TAB PO SCH ×2 (08:33→21:25)
[2016-05-31] MEDS: PENTOSAN POLYSULFATE SODIUM 100 MG CAP PO SCH ×2 (08:33→21:26)
[2016-05-31] MEDS: METHENAMINE HIPPURATE 1 GM TAB PO SCH ×2 (08:33→21:26)
[2016-05-31] MEDS: DOCUSATE SODIUM 100 MG CAP PO SCH ×2 (08:33→21:23)
[2016-05-31] MEDS: MAGNESIUM CHLORIDE 64MG DELAYED REL TAB PO SCH ×2 (08:33→21:26)
[2016-05-31] MEDS: THIAMINE HCL 100 MG TAB PO SCH (08:34)
[2016-05-31] MEDS: PANTOprazole SOD 40 MG TAB PO SCH ×2 (08:34→21:27)
[2016-05-31] MEDS: GABAPENTIN 100 MG CAP PO SCH ×2 (08:34→17:02)
[2016-05-31] MEDS: ESCITALOPRAM OXALATE 20 MG TAB PO SCH (08:34)
[2016-05-31] MEDS: ASCORBIC ACID 500 MG TAB PO SCH ×2 (08:35→21:26)
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
[2016-05-31] MEDS: SODIUM CHLORIDE 0.65% NA SOLN 45 ML (OCEAN) SCH ×4 (09:00→21:00)
--- NOTE | 2016-05-31 11:46 | Progress Note ---
Post ICU Progress Note Date & Time May 31, 2016 at 11:34 Vital Signs Vital Signs Past 12 Hours Date Time Temp Pulse Resp B/P Pulse Ox O2 Delivery O2 Flow Rate FiO2 05/31/16 07:46 77 20 96 Mechanical Ventilator 2.0 05/31/16 04:00 96 Mechanical Ventilator 2.0 05/31/16 04:00 36.4 80 20 140/70 96 Mechanical Ventilator 2.0 05/30/16 23:59 99 Mechanical Ventilator 2.0 05/30/16 23:59 36.4 82 20 145/66 96 Mechanical Ventilator 2.0 Notes Mental Status: alert / awake (but slightly disoriented) Nausea / Vomiting: adequately controlled Pain: adequately controlled Airway Patency, RR, SpO2: stable & adequate BP & HR: stable & adequate This is a 71 yo female chronically on a ventilator at home for many years. Her home vent settings are managed by Dr. Luther. He recently increased her tidal volume to 550 and this seems to be working well. She is currently saturating in the mid 90s. She does appear anxious and agitated. In the past she has used lorazepam successfully. She did have it last night and it helped a little. We will try 0.5mg IV now as her chief complaint is that she is exhausted from not sleeping. She has no other acute complaints. I did spend a significant amount of time in discussion with her toddler caregiver. Repeat imaging needed: Patient still course to auscultation. Consider follow up CXR if no improvement Follow up cultures: No significant benefit to sputum culture as patient is on Ertapenem - further management per ID Reviewed progress notes, labs, and inpatient medication list Continue current management At this time, the critical care team will sign off. Please feel free to reconsult as needed Consults: Dr. Mixon from pulmonary Dr. Barney from infectious disease Thank you for including us in the care of this patient Consults & Procedures Consultants: Pulmonary: Dr. Mixon Infectious Dz: Ms. Martinez
[2016-05-31] MEDS: ERTAPENEM IV 1 GM in SODIUM CHLOR 0.9% AD-VAN 50ML 50 ML IV SCH (12:16)
--- NOTE | 2016-05-31 14:17 | Infectious Disease Progress Nt ---
Progress Note Date of Service May 31, 2016. Subjective Pt evaluation today including: conversation w/ patient, conversation w/ family (Caregiver), physical exam, chart review, lab review, review of studies, review of inpatient medication list Patient's white blood cell count this morning was 11.49. She continues to be afebrile. Her creatinine this morning was 0.71. Her phos continues to be mildly elevated at 224. Urine culture was finalized with no growth. Her blood cultures continue to show no growth to date. She has had no new imaging studies completed. The patient is currently sedated while I am in the room, but her caregiver states that her secretions have been slightly less today. The patient was very agitated overnight, but otherwise seems to have been improving. Additional Comments: Unable to obtain ROS due to patient's state. Medications Current Inpatient Medications Medications (Trade) Dose Ordered Sig/Tasha Route Start Time Stop Time Status Last Admin Dose Admin Ioversol (Optiray 320) 100 ml UD PRN IV 05/28/16 20:15 06/01/16 20:14 Acetaminophen (Tylenol Tab) 650 mg Q4H PRN PO 05/28/16 23:00 06/27/16 22:59 05/30/16 21:38 650 MG Lorazepam (Ativan Inj) 0.5 mg Q4H PRN IV 05/28/16 23:00 06/27/16 22:59 05/31/16 11:02 0.5 MG Levalbuterol (Xopenex 1.25MG/ 3ML Neb) 1.25 mg Q4H PRN INH 05/28/16 23:00 06/27/16 22:59 Ondansetron HCl (Zofran Inj) 4 mg Q6H PRN IV 05/28/16 23:00 06/27/16 22:59 Morphine Sulfate (MoRPHine SULFATE INJ) 2 mg Q2H PRN IV 05/28/16 23:00 06/11/16 22:59 05/31/16 01:30 2 MG Allopurinol (Zyloprim Tab) 100 mg DAILY PO 05/29/16 09:00 06/28/16 08:59 05/31/16 08:32 100 MG Ascorbic Acid (Vitamin C Tab) 500 mg BID PO 05/29/16 09:00 06/28/16 08:59 05/31/16 08:35 500 MG Aspirin (Ecotrin Tab) 81 mg DAILY PO 05/29/16 09:00 06/28/16 08:59 05/31/16 08:32 81 MG Dipyridamole/ Aspirin (Aggrenox 200MG/ 25MG Cap) 1 cap BID PO 05/29/16 09:00 06/28/16 08:59 05/31/16 08:32 1 CAP Buspirone HCl (BusPAR TAB) 7.5 mg BID PO 05/29/16 09:00 06/28/16 08:59 05/31/16 08:33 7.5 MG Calcium/Vitamin D (Caltrate Plus Tab) 1 tab BID PO 05/29/16 09:00 06/28/16 08:59 05/31/16 08:32 1 TAB Cholecalciferol (Vitamin D Tab) 1,000 inter.unit BID PO 05/29/16 09:00 06/28/16 08:59 05/31/16 08:33 1,000 INTER.UNIT Clopidogrel Bisulfate (plAVix TAB) 75 mg DAILY PO 05/29/16 09:00 06/28/16 08:59 05/31/16 08:33 75 MG Docusate Sodium (coLACE CAP) 100 mg BID PO 05/29/16 09:00 06/28/16 08:59 05/31/16 08:33 100 MG Escitalopram Oxalate (Lexapro Tab) 20 mg QAM PO 05/29/16 09:00 06/28/16 08:59 05/31/16 08:34 20 MG Fluconazole (Diflucan Tab) 100 mg QPM PO 05/29/16 21:00 06/08/16 20:59 05/30/16 21:34 100 MG Gabapentin (Neurontin Cap) 100 mg QAM PO 05/29/16 09:00 06/28/16 08:59 05/31/16 08:34 100 MG Gabapentin (Neurontin Cap) 200 mg 1600 PO 05/29/16 16:00 06/28/16 15:59 Gabapentin (Neurontin Tab) 600 mg HS PO 05/29/16 21:00 06/28/16 20:59 05/30/16 21:33 600 MG Magnesium Chloride (Slow-Mag Tab) 64 mg BID PO 05/29/16 09:00 06/28/16 08:59 05/31/16 08:33 64 MG Methenamine Hippurate (Urex Tab) 1 gm BID PO 05/29/16 09:00 06/08/16 08:59 05/31/16 08:33 1 GM Pantoprazole Sodium (Protonix Tab) 40 mg BID PO 05/29/16 09:00 06/28/16 08:59 05/31/16 08:34 40 MG Phenazopyridine HCl (Pyridium Tab) 200 mg DAILY PRN PO 05/28/16 23:00 06/27/16 22:59 Miscellaneous Information (Order Awaiting Action) 1 ea QS N/A 05/29/16 08:00 06/28/16 07:59 Pentosan Polysulfate Sodium (Elmiron) 100 mg BID PO 05/29/16 09:00 06/28/16 08:59 05/31/16 08:33 100 MG Artificial Tears (Artificial Tears) 2 drops BID PRN OPB 05/29/16 04:45 06/28/16 04:44 Solifenacin (Vesicare) 10 mg HS PO 05/29/16 21:00 06/28/16 20:59 05/30/16 21:35 10 MG Thiamine HCl (Vitamin B-1 Tab) 100 mg DAILY PO 05/29/16 09:00 06/28/16 08:59 05/31/16 08:34 100 MG Artificial Tears (Lacri-Lube Oph Oint) 1 appln HS OPB 05/29/16 21:00 06/28/16 20:59 05/30/16 21:00 1 APPLN Lorazepam (Ativan Tab) 0.5 mg DAILY PRN PO 05/29/16 02:00 06/28/16 01:59 Insulin Aspart (novoLOG ASPART) SLIDING SCALE G... ACHS SC 05/29/16 06:45 06/28/16 06:59 05/31/16 12:17 1 UNITS Bisacodyl (Dulcolax Supp) 10 mg TuTh@0530 [place] 05/29/16 06:15 06/28/16 06:14 05/31/16 05:30 10 MG Bisacodyl (Dulcolax Supp) 10 mg SuMoWeFrSa@2330 [place] 05/30/16 23:30 06/29/16 23:29 05/30/16 23:30 10 MG Amlodipine Besylate (Norvasc Tab) 2.5 mg DAILY PO 05/29/16 09:00 06/28/16 08:59 05/31/16 08:32 2.5 MG Polyethylene 17 gm 17 gm QPM PO 05/29/16 21:00 06/28/16 20:59 05/30/16 17:39 17 GM Ertapenem/Sodium Chloride (Invanz Iv/Nss Ad-Van 50ml) 50 ml @ 120 mls/hr Q24H IV 05/29/16 12:00 06/05/16 11:59 05/31/16 12:16 120 MLS/HR Albuterol/ Ipratropium (Duoneb) 3 ml Q6R INH 05/29/16 15:00 06/28/16 14:59 05/31/16 07:46 3 ML Quetiapine Fumarate (seroQUEL TAB) 25 mg HS PO 05/29/16 22:00 06/28/16 21:59 05/30/16 21:36 25 MG Sodium Chloride ([place] Nasal [place]) 2 sprays QID NA 05/30/16 21:00 06/29/16 20:59 05/31/16 13:00 2 SPRAYS Multi-Ingredient Ointment (Eucerin Unscented Cr) 0.25 appln BID PRN EXT 05/30/16 22:00 06/29/16 21:59 Objective Vital Signs Date Time Temp Pulse Resp B/P Pulse Ox O2 Delivery O2 Flow Rate FiO2 05/31/16 12:00 Mechanical Ventilator 2.0 05/31/16 08:00 Mechanical Ventilator 2.0 05/31/16 07:46 77 20 96 Mechanical Ventilator 2.0 05/31/16 04:00 96 Mechanical Ventilator 2.0 05/31/16 04:00 36.4 80 20 140/70 96 Mechanical Ventilator 2.0 05/30/16 23:59 99 Mechanical Ventilator 2.0 05/30/16 23:59 36.4 82 20 145/66 96 Mechanical Ventilator 2.0 05/30/16 20:00 Mechanical Ventilator 2.0 05/30/16 20:00 36.4 78 16 127/63 96 Mechanical Ventilator 2.0 05/30/16 16:00 36.4 72 22 151/81 92 Mechanical Ventilator 2.0 05/30/16 16:00 92 Mechanical Ventilator 2.0 Physical Exam General Appearance: + pertinent finding (Sedated. No acute distress.) Neck: supple Respiratory/Chest: no respiratory distress, no accessory muscle use, + pertinent finding (tracheostomy, ventilated, coarse breath sounds) Cardiovascular: regular rate, rhythm Abdomen: normal bowel sounds Extremities: + pertinent finding (quadriplegic) Neurologic/Psychiatric: + pertinent finding (lethargic, sedated) Skin: normal color, warm/dry, no rash Laboratory Results Item Value Date Time Urine Culture - Final Complete 05/29/16 1710 Urine,Catheterized NO GROWTH - LESS THAN 1,000 COLONIES/ML Blood Culture - Preliminary Resulted 05/28/16 2035 Blood NO GROWTH TO DATE. Blood Culture - Preliminary Resulted 05/28/16 1945 Blood NO GROWTH TO DATE. Last 24 Hours Test 05/30/16 15:43 05/30/16 16:18 05/30/16 21:46 05/31/16 05:22 Sodium Level 138 mmol/L Potassium Level 4.3 mmol/L Chloride Level 104 mmol/L Carbon Dioxide Level 28 mmol/L Anion Gap 6.0 mmol/L Blood Urea Nitrogen 31 mg/dl Creatinine 0.82 mg/dl Est Creatinine Clear Calc Drug Dose 58.0 ml/min Estimated GFR () 84.6 Estimated GFR (Non- 73.0 BUN/Creatinine Ratio 37.3 Random Glucose 124 mg/dl Calcium Level 8.9 mg/dl Bedside Glucose 124 mg/dl 116 mg/dl White Blood Count 11.49 K/uL Red Blood Count 4.29 M/uL Hemoglobin 12.4 g/dL Hematocrit 39.2 % Mean Corpuscular Volume 91.4 fL Mean Corpuscular Hemoglobin 28.9 pg Mean Corpuscular Hemoglobin Concent 31.6 g/dl Platelet Count 120 K/uL Mean Platelet Volume 9.7 fL Neutrophils (%) (Auto) 89.5 % Lymphocytes (%) (Auto) 4.0 % Monocytes (%) (Auto) 6.0 % Eosinophils (%) (Auto) 0.1 % Basophils (%) (Auto) 0.1 % Neutrophils # (Auto) 10.29 K/uL Lymphocytes # (Auto) 0.46 K/uL Monocytes # (Auto) 0.69 K/uL Eosinophils # (Auto) 0.01 K/uL Basophils # (Auto) 0.01 K/uL RDW Standard Deviation 63.1 fL RDW Coefficient of Variation 18.9 % Immature Granulocyte % (Auto) 0.3 % Immature Granulocyte # (Auto) 0.03 K/uL Test 05/31/16 05:32 05/31/16 06:28 05/31/16 11:14 Sodium Level 139 mmol/L Potassium Level 4.5 mmol/L Chloride Level 104 mmol/L Carbon Dioxide Level 26 mmol/L Anion Gap 9.0 mmol/L Blood Urea Nitrogen 30 mg/dl Creatinine 0.71 mg/dl Est Creatinine Clear Calc Drug Dose 67.0 ml/min Estimated GFR () 100.7 Estimated GFR (Non- 86.9 BUN/Creatinine Ratio 42.3 Random Glucose 109 mg/dl Calcium Level 8.7 mg/dl Phosphorus Level 4.2 mg/dl Magnesium Level 2.6 mg/dl Total Bilirubin 0.2 mg/dl Direct Bilirubin < 0.1 mg/dl Aspartate Amino Transf (AST/SGOT) 18 U/L Alanine Aminotransferase (ALT/SGPT) 32 U/L Alkaline Phosphatase 224 U/L Total Protein 7.0 gm/dl Albumin 1.8 gm/dl Bedside Glucose 114 mg/dl 198 mg/dl Assessment and Plan (1) vent dep Status: Chronic Onset: 10/23/2010 (2) Quadriplegia Status: Chronic Onset: 10/23/2010 (3) Chronic respiratory failure Status: Chronic Onset: 10/23/2010 (4) Chronic urinary tract infection Status: Chronic Onset: 11/26/2012 (5) Hyperkalemia Status: Acute Patient with history of recurrent UTI's, possible aspiration pneumonia, and quadriplegia who is very slightly improving. She continues to be agitated and lethargic, but her secretions have decreased, she has been afebrile, and her labs have been relatively stable. Therefore, once medically cleared, this patient is OK to complete 10 days of IV Ertapenem total at home. She typically has IV abx at home, so this should not be a problem. She will also need ID follow up to determine if she will continue on her current chronic rotating abx therapy with Meropenem and Levaquin initially started by Dr. [place] last year. Thank you PROVIDER ADDENDUM: Patient reviewed with Ms. Martinez. Agree with above assessment.
[2016-05-31 17:00] LABS: BUN/CREATININE RATIO 44.9 (10-20); CREATININE 0.69 mg/dl (0.60-1.20); POTASSIUM 4.5 mmol/L (3.5-5.1)
--- NOTE | 2016-05-31 18:30 | PULMONARY PROGRESS NOTE ---
DATE: 05/31/2016 TIME: 4:50 p.m. SUBJECTIVE: The patient is extremely somnolent today. This is like she was 2 days ago. She did receive 0.5 mg IV Ativan almost 6 hours ago. Reportedly, she had had some confusion and hallucinations overnight and into the morning hours as well. Her daughter is present with her. In addition, there were the aides from her home who takes care of her. Reportedly, she has had some secretions once again, but not as much as yesterday. OBJECTIVE: GENERAL: The patient is extremely lethargic. I tried to arouse her. She would just barely open her eyes, but not follow commands. VITAL SIGNS: Temperature is 36 degrees. HEENT: Mouth exam shows a Mallampati grade 3 pharynx. The membranes were dry. Trach is in place. HEART: Heart rate is 70 beats per minute. The rhythm is regular. Blood pressure 124/74. LUNGS: Lung torrse were much clearer today than yesterday. The rhonchi were very mild. No rales were heard. Saturation was 95% on the ventilator. There is 2 L of oxygen going in. ABDOMEN: Remains mildly distended. Bowel sounds were present, but slightly diminished. There was no apparent tenderness to palpation. EXTREMITIES: Showed trace edema. Obviously, the patient does not move. LABORATORY DATA: White count today was 11.49, which is higher than it has been. Yesterday it was 7.84. Hemoglobin is 12.4. Platelets were 120,000. Electrolytes show sodium 139, potassium 4.5, chloride 104, bicarb 26. BUN was 30 with a creatinine of 0.71. Blood sugar today was as high as 198. Phosphorus was 4.2. Magnesium 2.6. Alk phos elevated at 324 with normal AST and ALT. Albumin was low at 1.8, even though total protein was 7.0. The patient did not have a chest x-ray today. IMPRESSIONS: 1. Acute on chronic respiratory failure with hypoxia. 2. Atelectasis. 3. Pneumonia. 4. Quadriplegia. 5. Pulmonary hypertension. 6. Confusion. COMMENTS AND RECOMMENDATIONS: The patient is currently extremely lethargic, presumably related to the IV Ativan. It could be the Ativan itself is contributing to her confusion and hallucinations. Even her restlessness could be related to that. I will check an ABG for the morning however, to see if she might be having CO2 retention as a reason for some of her mental status changes. We will also recheck a chest x-ray. Continue with her other medicines. INO
[2016-05-31] MEDS: ARTIFICIAL TEARS OP OINT 3.5 GM TUBE OPB SCH (21:16)
[2016-05-31] MEDS: QUETIAPINE FUMARATE 25 MG TAB PO SCH (21:23)
[2016-05-31] MEDS: POLYETHYLENE (MIRALAX) 17 GM PACK PO SCH (21:25)
[2016-05-31] MEDS: FLUCONAZOLE 100 MG TAB PO SCH (21:25)
[2016-05-31] MEDS: GABAPENTIN 600 MG TAB PO SCH (21:26)
[2016-05-31] MEDS: SOLIFENACIN 10 MG TAB PO SCH (21:27)
[2016-06-01] VITALS (7 sets, daily range): BP systolic 116–161; BP diastolic 58–93; PULSE 72–94; TEMP 35.1–36.3; O2SAT 91–95
[2016-06-01] MEDS: ALBUT/IPRATROP 3MG/0.5MG NEB 3 ML VIAL INH SCH ×4 (02:52→19:11)
[2016-06-01 05:58] LABS: ISTAT ALLEN TEST Pass; ISTAT ARTERIAL BLOOD GAS HCO3 26 meq/L (19-24); ISTAT ARTERIAL BLOOD GAS PCO2 56 mmHg (35-46); ISTAT ARTERIAL BLOOD GAS PO2 75 mmHg (80-95); ISTAT ARTERIAL BLOOD GAS pH 7.27 (7.35-7.45); ISTAT CARBON DIOXIDE 28 mEq/l (24-31); ISTAT DELIVERY SYSTEM Ventilator; ISTAT FIO2 24 %; ISTAT PEEP 0; ISTAT RATE 16; ISTAT SITE R Radial; Vt 550
[2016-06-01] MEDS: INSULIN ASPART 100 UNITS/ML 3 ML PEN SC SCH ×4 (06:45→21:00)
[2016-06-01 06:46] LABS: BASO % 0.1 %; BASO ABS # 0.01 K/uL (0-0.2); COMPLETE YES; EOS % 0.1 %; HEMATOCRIT 39.8 % (37-47); IG% 0.3 %; LYMPH % 3.9 %; LYMPH ABS # 0.35 K/uL (1.2-3.4); MEAN CELL VOLUME 91.9 fL (80-100); MEAN CORPUSCULAR HEMOGLOBIN 29.3 pg (25-34); MEAN CORPUSCULAR HGB CONC 31.9 g/dl (32-36); MEAN PLATELET VOLUME 9.4 fL (7.4-10.4); MONO % 4.6 %; PLATELET COUNT 109 K/uL (130-400); RED BLOOD COUNT 4.33 M/uL (4.2-5.4)
[2016-06-01 07:15] LABS: ALT/SGPT 31 U/L (12-78); AST/SGOT 19 U/L (15-37); BLOOD UREA NITROGEN 28 mg/dl (7-18); BUN/CREATININE RATIO 46.2 (10-20); CALCIUM 9.1 mg/dl (8.5-10.1); CARBON DIOXIDE 25 mmol/L (21-32); CHLORIDE 105 mmol/L (98-107); CREATININE 0.61 mg/dl (0.60-1.20); GLUCOSE 106 mg/dl (70-99); MAGNESIUM 2.8 mg/dl (1.8-2.4); POTASSIUM 4.2 mmol/L (3.5-5.1); SODIUM 140 mmol/L (136-145)
[2016-06-01 07:17] LABS: ALKALINE PHOSPHATASE 234 U/L (45-117); PHOSPHORUS 4.4 mg/dl (2.5-4.9)
--- NOTE | 2016-06-01 08:38 | DIAGNOSTIC IMAGING REPORT ---
SINGLE VIEW CHEST CLINICAL HISTORY: Respiratory failure. FINDINGS: An AP, portable, upright chest radiograph is compared to study dated 05/30/2016. Correlation with chest CT dated 05/28/2016. The examination is degraded by portable technique and patient rotation. A tracheostomy, a right subclavian central venous infusion port, and a left subclavian central venous catheter are unchanged in position. The heart is enlarged. There is pulmonary vascular congestion. There are increasing airspace opacities at the left lung base and in the right midlung as compared to 05/30/2016 layering pleural effusions are identified. No pneumothorax is seen. The skeletal structures are osteopenic. The bony thorax is grossly intact. IMPRESSION: 1. Cardiomegaly with pulmonary vascular congestion. 2. Increasing airspace opacities are seen bilaterally. This could represent multifocal pneumonia and/or worsening interstitial edema. Clinical correlation will be required. 3. Layering pleural effusions are identified. Electronically signed by: Melvin Dominguez M.D. 06/01/2016 8:36 AM Dictated Date/Time: 06/01/2016 8:34 AM
[2016-06-01] MEDS ORDERED: IPRASOL4 INH (08:43)
[2016-06-01] MEDS ORDERED: ERTA1INJ IV (08:43)
[2016-06-01] MEDS ORDERED: DLCS PR ×2 (08:43)
[2016-06-01] MEDS: SODIUM CHLORIDE 0.65% NA SOLN 45 ML (OCEAN) SCH ×4 (09:25→20:47)
[2016-06-01] MEDS: PANTOprazole SOD 40 MG TAB PO SCH ×2 (09:26→20:49)
[2016-06-01] MEDS: MAGNESIUM CHLORIDE 64MG DELAYED REL TAB PO SCH ×2 (09:26→20:53)
[2016-06-01] MEDS: ASCORBIC ACID 500 MG TAB PO SCH ×2 (09:27→20:50)
[2016-06-01] MEDS: PENTOSAN POLYSULFATE SODIUM 100 MG CAP PO SCH ×2 (09:27→20:52)
[2016-06-01] MEDS: METHENAMINE HIPPURATE 1 GM TAB PO SCH ×2 (09:27→20:53)
[2016-06-01] MEDS: THIAMINE HCL 100 MG TAB PO SCH (09:27)
[2016-06-01] MEDS: CHOLECALCIFEROL 1000 INTER.UNIT TAB PO SCH ×2 (09:28→20:51)
[2016-06-01] MEDS: CALCIUM 600MG + VIT D 400 IU TAB PO SCH ×2 (09:28→20:49)
[2016-06-01] MEDS: GABAPENTIN 100 MG CAP PO SCH ×2 (09:29→16:11)
[2016-06-01] MEDS: BusPIRone 15 MG TAB PO SCH ×2 (09:31→20:50)
[2016-06-01] MEDS: CLOPIDOGREL BISULFATE 75 MG TAB PO SCH (09:31)
[2016-06-01] MEDS: ASPIRIN 81 MG ECTAB PO SCH (09:32)
[2016-06-01] MEDS: DIPYRIDAMOLE/ASPIRIN CAP PO SCH ×2 (09:32→20:55)
[2016-06-01] MEDS: ESCITALOPRAM OXALATE 20 MG TAB PO SCH (09:32)
[2016-06-01] MEDS: DOCUSATE SODIUM 100 MG CAP PO SCH ×2 (09:32→20:54)
[2016-06-01] MEDS: AMLODIPINE BESYLATE 5 MG TAB PO SCH (09:33)
[2016-06-01] MEDS: ALLOPURINOL 100 MG TAB PO SCH (09:33)
--- NOTE | 2016-06-01 10:06 | Infectious Disease Progress Nt ---
Progress Note Date of Service Jun 01, 2016. Subjective Pt evaluation today including: conversation w/ patient, physical exam, chart review, lab review, review of studies, conversation w/ operations consultant (Dr. Vasques), review of inpatient medication list WBC count this morning is 9.00. Blood gases show increased pCO2. Repeat CXR showed cardiomegaly, increasing airspace opacities bilaterally which could represent multifocal pneumonia and/or worsening interstitial edema, and layering pleural effusions were also noted. I viewed this image compared to previous X-Rays today as well. Blood cultures continue to show no growth. All Other Systems: Reviewed and Negative Medications Current Inpatient Medications Medications (Trade) Dose Ordered Sig/Tasha Route Start Time Stop Time Status Last Admin Dose Admin Ioversol (Optiray 320) 100 ml UD PRN IV 05/28/16 20:15 06/01/16 20:14 Acetaminophen (Tylenol Tab) 650 mg Q4H PRN PO 05/28/16 23:00 06/27/16 22:59 05/30/16 21:38 650 MG Lorazepam (Ativan Inj) 0.5 mg Q4H PRN IV 05/28/16 23:00 06/27/16 22:59 05/31/16 11:02 0.5 MG Levalbuterol (Xopenex 1.25MG/ 3ML Neb) 1.25 mg Q4H PRN INH 05/28/16 23:00 06/27/16 22:59 Ondansetron HCl (Zofran Inj) 4 mg Q6H PRN IV 05/28/16 23:00 06/27/16 22:59 Morphine Sulfate (MoRPHine SULFATE INJ) 2 mg Q2H PRN IV 05/28/16 23:00 06/11/16 22:59 05/31/16 01:30 2 MG Allopurinol (Zyloprim Tab) 100 mg DAILY PO 05/29/16 09:00 06/28/16 08:59 06/01/16 09:33 100 MG Ascorbic Acid (Vitamin C Tab) 500 mg BID PO 05/29/16 09:00 06/28/16 08:59 06/01/16 09:27 500 MG Aspirin (Ecotrin Tab) 81 mg DAILY PO 05/29/16 09:00 06/28/16 08:59 06/01/16 09:32 81 MG Dipyridamole/ Aspirin (Aggrenox 200MG/ 25MG Cap) 1 cap BID PO 05/29/16 09:00 06/28/16 08:59 06/01/16 09:32 1 CAP Buspirone HCl (BusPAR TAB) 7.5 mg BID PO 05/29/16 09:00 06/28/16 08:59 06/01/16 09:31 7.5 MG Calcium/Vitamin D (Caltrate Plus Tab) 1 tab BID PO 05/29/16 09:00 06/28/16 08:59 06/01/16 09:28 1 TAB Cholecalciferol (Vitamin D Tab) 1,000 inter.unit BID PO 05/29/16 09:00 06/28/16 08:59 06/01/16 09:28 1,000 INTER.UNIT Clopidogrel Bisulfate (plAVix TAB) 75 mg DAILY PO 05/29/16 09:00 06/28/16 08:59 06/01/16 09:31 75 MG Docusate Sodium (coLACE CAP) 100 mg BID PO 05/29/16 09:00 06/28/16 08:59 06/01/16 09:32 100 MG Escitalopram Oxalate (Lexapro Tab) 20 mg QAM PO 05/29/16 09:00 06/28/16 08:59 06/01/16 09:32 20 MG Fluconazole (Diflucan Tab) 100 mg QPM PO 05/29/16 21:00 06/08/16 20:59 05/31/16 21:25 100 MG Gabapentin (Neurontin Cap) 100 mg QAM PO 05/29/16 09:00 06/28/16 08:59 06/01/16 09:29 100 MG Gabapentin (Neurontin Cap) 200 mg 1600 PO 05/29/16 16:00 06/28/16 15:59 Gabapentin (Neurontin Tab) 600 mg HS PO 05/29/16 21:00 06/28/16 20:59 05/31/16 21:26 600 MG Magnesium Chloride (Slow-Mag Tab) 64 mg BID PO 05/29/16 09:00 06/28/16 08:59 06/01/16 09:26 64 MG Methenamine Hippurate (Urex Tab) 1 gm BID PO 05/29/16 09:00 06/08/16 08:59 06/01/16 09:27 1 GM Pantoprazole Sodium (Protonix Tab) 40 mg BID PO 05/29/16 09:00 06/28/16 08:59 06/01/16 09:26 40 MG Phenazopyridine HCl (Pyridium Tab) 200 mg DAILY PRN PO 05/28/16 23:00 06/27/16 22:59 Miscellaneous Information (Order Awaiting Action) 1 ea QS N/A 05/29/16 08:00 06/28/16 07:59 Pentosan Polysulfate Sodium (Elmiron) 100 mg BID PO 05/29/16 09:00 06/28/16 08:59 06/01/16 09:27 100 MG Artificial Tears (Artificial Tears) 2 drops BID PRN OPB 05/29/16 04:45 06/28/16 04:44 Solifenacin (Vesicare) 10 mg HS PO 05/29/16 21:00 06/28/16 20:59 05/31/16 21:27 10 MG Thiamine HCl (Vitamin B-1 Tab) 100 mg DAILY PO 05/29/16 09:00 06/28/16 08:59 06/01/16 09:27 100 MG Artificial Tears (Lacri-Lube Oph Oint) 1 appln HS OPB 05/29/16 21:00 06/28/16 20:59 05/31/16 21:16 1 APPLN Lorazepam (Ativan Tab) 0.5 mg DAILY PRN PO 05/29/16 02:00 06/28/16 01:59 Insulin Aspart (novoLOG ASPART) SLIDING SCALE G... ACHS SC 05/29/16 06:45 06/28/16 06:59 05/31/16 12:17 1 UNITS Bisacodyl (Dulcolax Supp) 10 mg TuTh@0530 [place] 05/29/16 06:15 06/28/16 06:14 05/31/16 05:30 10 MG Bisacodyl (Dulcolax Supp) 10 mg SuMoWeFrSa@2330 [place] 05/30/16 23:30 06/29/16 23:29 05/30/16 23:30 10 MG Amlodipine Besylate (Norvasc Tab) 2.5 mg DAILY PO 05/29/16 09:00 06/28/16 08:59 06/01/16 09:33 2.5 MG Polyethylene 17 gm 17 gm QPM PO 05/29/16 21:00 06/28/16 20:59 05/31/16 21:25 17 GM Ertapenem/Sodium Chloride (Invanz Iv/Nss Ad-Van 50ml) 50 ml @ 120 mls/hr Q24H IV 05/29/16 12:00 06/05/16 11:59 05/31/16 12:16 120 MLS/HR Albuterol/ Ipratropium (Duoneb) 3 ml Q6R INH 05/29/16 15:00 06/28/16 14:59 06/01/16 07:42 3 ML Quetiapine Fumarate (seroQUEL TAB) 25 mg HS PO 05/29/16 22:00 06/28/16 21:59 05/31/16 21:23 25 MG Sodium Chloride ([place] Nasal [place]) 2 sprays QID NA 05/30/16 21:00 06/29/16 20:59 06/01/16 09:25 2 SPRAYS Multi-Ingredient Ointment (Eucerin Unscented Cr) 0.25 appln BID PRN EXT 05/30/16 22:00 06/29/16 21:59 Doxycycline Hyclate (Vibramycin Cap) 100 mg BID PO 06/01/16 10:00 06/08/16 09:59 UNV Objective Vital Signs Date Time Temp Pulse Resp B/P Pulse Ox O2 Delivery O2 Flow Rate FiO2 06/01/16 04:00 95 Mechanical Ventilator 24 06/01/16 04:00 24 06/01/16 04:00 35.8 82 13 161/80 93 Mechanical Ventilator 24 06/01/16 00:13 35.1 72 11 127/59 95 Mechanical Ventilator 24 05/31/16 23:59 99 Mechanical Ventilator 24 05/31/16 23:59 24 05/31/16 21:03 36.3 81 16 117/53 95 Mechanical Ventilator 1.0 05/31/16 20:00 Mechanical Ventilator 1.0 05/31/16 19:00 72 16 96 Mechanical Ventilator 1.0 05/31/16 16:34 36.3 71 16 140/83 96 Mechanical Ventilator 05/31/16 16:00 Mechanical Ventilator 2.0 05/31/16 12:00 36.0 95 16 124/74 95 Mechanical Ventilator 05/31/16 12:00 Mechanical Ventilator 2.0 Physical Exam General Appearance: + mild distress Eyes: sclerae normal ENT: hearing grossly normal Neck: + pertinent finding (tracheostomy) Respiratory/Chest: chest non-tender, + pertinent finding (ventilated, tracheostomy; Coarse breath sounds throughout, especially bases) Cardiovascular: regular rate, rhythm Abdomen: normal bowel sounds Extremities: + pertinent finding (quadriplegic) Neurologic/Psychiatric: + pertinent finding (lethargic, but does make small conversation) Skin: normal color, warm/dry Laboratory Results Item Value Date Time Blood Culture - Preliminary Resulted 05/28/162034 Blood NO GROWTH TO DATE. Blood Culture - Preliminary Resulted 05/28/161944 Blood NO GROWTH TO DATE. Last 24 Hours Test 05/31/16 11:14 05/31/16 16:32 05/31/16 16:36 05/31/16 20:59 Bedside Glucose 198 mg/dl 130 mg/dl 121 mg/dl Sodium Level 137 mmol/L Potassium Level 4.5 mmol/L Chloride Level 103 mmol/L Carbon Dioxide Level 26 mmol/L Anion Gap 8.0 mmol/L Blood Urea Nitrogen 31 mg/dl Creatinine 0.69 mg/dl Est Creatinine Clear Calc Drug Dose 69.0 ml/min Estimated GFR () 102.9 Estimated GFR (Non- 88.8 BUN/Creatinine Ratio 44.9 Random Glucose 133 mg/dl Calcium Level 9.0 mg/dl Test 06/01/16 05:45 06/01/16 06:39 06/01/16 06:43 Blood Gas Sample Site R Radial Bedside Blood Gas pH (LAB) 7.27 Bedside Blood Gas pCO2 (LAB) 56 mmHg Bedside Blood Gas pO2 (LAB) 75 mmHg Bedside Blood Gas HCO3 (LAB) 26 meq/L Bedside Blood Gas Total CO2 28 mEq/l Bedside Blood Gas Base Excess (LAB) -1.0 meq/L Bedside Blood Gas O2 Saturation 94.0 % Yogesh Test Pass Oxygen Delivery Device Ventilator Bedside Oxygen Rate (breaths/min) 16 Bedside FiO2 24 % Blood Gas Tidal Volume 550 Blood Gas PEEP 0 White Blood Count 9.00 K/uL Red Blood Count 4.33 M/uL Hemoglobin 12.7 g/dL Hematocrit 39.8 % Mean Corpuscular Volume 91.9 fL Mean Corpuscular Hemoglobin 29.3 pg Mean Corpuscular Hemoglobin Concent 31.9 g/dl Platelet Count 109 K/uL Mean Platelet Volume 9.4 fL Neutrophils (%) (Auto) 91.0 % Lymphocytes (%) (Auto) 3.9 % Monocytes (%) (Auto) 4.6 % Eosinophils (%) (Auto) 0.1 % Basophils (%) (Auto) 0.1 % Neutrophils # (Auto) 8.19 K/uL Lymphocytes # (Auto) 0.35 K/uL Monocytes # (Auto) 0.41 K/uL Eosinophils # (Auto) 0.01 K/uL Basophils # (Auto) 0.01 K/uL RDW Standard Deviation 64.4 fL RDW Coefficient of Variation 19.0 % Immature Granulocyte % (Auto) 0.3 % Immature Granulocyte # (Auto) 0.03 K/uL Sodium Level 140 mmol/L Potassium Level 4.2 mmol/L Chloride Level 105 mmol/L Carbon Dioxide Level 25 mmol/L Anion Gap 10.0 mmol/L Blood Urea Nitrogen 28 mg/dl Creatinine 0.61 mg/dl Est Creatinine Clear Calc Drug Dose 78.0 ml/min Estimated GFR () 107.2 Estimated GFR (Non- 92.5 BUN/Creatinine Ratio 46.2 Random Glucose 106 mg/dl Calcium Level 9.1 mg/dl Phosphorus Level 4.4 mg/dl Magnesium Level 2.8 mg/dl Total Bilirubin 0.2 mg/dl Direct Bilirubin < 0.1 mg/dl Aspartate Amino Transf (AST/SGOT) 19 U/L Alanine Aminotransferase (ALT/SGPT) 31 U/L Alkaline Phosphatase 234 U/L Total Protein 7.3 gm/dl Albumin 1.9 gm/dl Bedside Glucose 108 mg/dl Assessment and Plan (1) vent dep Status: Chronic Onset: 10/23/2010 (2) Quadriplegia Status: Chronic Onset: 10/23/2010 (3) Chronic respiratory failure Status: Chronic Onset: 10/23/2010 (4) Chronic urinary tract infection Status: Chronic Onset: 11/26/2012 (5) Hyperkalemia Status: Acute Patient with history of recurrent UTI's, possible aspiration pneumonia, and quadriplegia who is stable but not necessarily improving much. She continues to be lethargic. She has less upper respiratory secretions today, but continues to have some coarse breath sounds in the lungs. Her CXR showed progression of interstitial changes. She continues on IV Ertapenem to complete 10 days. Because she has had progression of CXR and very little improvement in baseline state, will also add Doxycycline for additional lung coverage. Will await pulmonary opinion regarding continued stay. We will follow. Plan: 1. Continue IV ertapenem 2. Add Doxy 3. Await pulmonary opinion PROVIDER ADDENDUM: Patient reviewed with Ms. Martinez. Agree with above assessment.
[2016-06-01] MEDS ORDERED: NURSING VERBAL MED ORDER ONE (11:30)
[2016-06-01] MEDS ORDERED: QUETIAPINE FUMARATE 25 MG TAB PO PRN (11:45)
[2016-06-01] MEDS: ERTAPENEM IV 1 GM in SODIUM CHLOR 0.9% AD-VAN 50ML 50 ML IV SCH (13:04)
[2016-06-01] MEDS: DOXYCYCLINE HYCLATE 100 MG CAP PO SCH ×2 (13:04→20:51)
[2016-06-01] MEDS: POLYETHYLENE (MIRALAX) 17 GM PACK PO SCH (16:39)
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
[2016-06-01] MEDS: GABAPENTIN 600 MG TAB PO SCH (20:48)
[2016-06-01] MEDS: FLUCONAZOLE 100 MG TAB PO SCH (20:49)
[2016-06-01] MEDS: QUETIAPINE FUMARATE 25 MG TAB PO SCH (20:52)
[2016-06-01] MEDS: SOLIFENACIN 10 MG TAB PO SCH (20:56)
[2016-06-01] MEDS: ARTIFICIAL TEARS OP OINT 3.5 GM TUBE OPB SCH (20:58)
[2016-06-01] MEDS: BISACODYL 10 MG SUPP PR SCH (21:04)
--- NOTE | 2016-06-01 21:07 | PULMONARY PROGRESS NOTE ---
DATE: 06/01/2016 TIME: 6:35 p.m. SUBJECTIVE: The patient is restless. I had discussed the case this morning with Dr. Vasques. Her blood gases this morning were poor. I felt the sedation likely should be changed or decreased. The morning blood gas showed a pH of 7.27 with a pCO2 of 56 and a pO2 of 75. The morphine and Ativan were held. Her aides who assist with her care at home and who are here state that when she has Ativan at home she does get extremely lethargic at times. This evening she is restless. There has been no respiratory distress from what I understand. She is still having some secretions, but less than yesterday. OBJECTIVE: GENERAL: The patient is a bit restless. Her aide believes that Florence does recognize her. She admits that Florence is also confused. She verbalized just a little bit. VITAL SIGNS: Temperature is 36.3. Trach site remains in place. Heart rate is 86 per minute, the rhythm is regular. Respiratory rate is currently 20 breaths per minute. Blood pressure is 149/82. LUNGS: The rhonchi today are mild. Her aeration is better than yesterday. Current saturation is 94%. Oxygen flow rate is only 1 liter. ABDOMEN: Remains mildly distended. It was relatively soft, however. EXTREMITIES: She does not move secondary to her quadriplegia. Mild edema was noted peripherally. LABORATORY DATA: CBC showed a white count of 9.0, hemoglobin 12.7 and platelets are 109,000. Sodium is 140, potassium 4.2, chloride 105, bicarb 25. BUN was 28 with a creatinine of 0.61. Blood sugar was 151. Magnesium is a little elevated at 2.8. Alkaline phosphatase was 234. Her intake for the past 2 days has been poor. For the 16th total intake was 907 and for the 15th total intake was 595. Portable chest x-ray done today, I believe reflects increased infiltrates bilaterally. I suspect this is pneumonia rather than interstitial edema. IMPRESSION: 1. Acute on chronic respiratory failure with hypoxia and hypercarbia. 2. Pneumonia. 3. Atelectasis. 4. Quadriplegia. 5. Pulmonary hypertension. 6. Sinusitis. COMMENTS AND RECOMMENDATIONS: As discussed with Dr. Vasques earlier, I think we need to hold back on the analgesics and sedatives. I believe this may stimulate her respiration more. I am concerned about the x-ray findings. I would suggest a followup x-ray in the morning. ID has been taking care of the antibiotics. Doxycycline was added today. She is still on ertapenem. Clearly, the patient is not ready for discharge. Dr. Luther will be on for pulmonary as of tomorrow.
[2016-06-02] VITALS (18 sets, daily range): BP systolic 126–178; BP diastolic 58–106; PULSE 73–91; TEMP 36.4–36.8; O2SAT 92–98
[2016-06-02] MEDS: ALBUT/IPRATROP 3MG/0.5MG NEB 3 ML VIAL INH SCH ×4 (02:25→14:46)
[2016-06-02 05:58] LABS: HEMATOCRIT 39.4 % (37-47); MEAN CELL VOLUME 89.5 fL (80-100); MEAN CORPUSCULAR HEMOGLOBIN 28.9 pg (25-34); MEAN CORPUSCULAR HGB CONC 32.2 g/dl (32-36); WHITE BLOOD COUNT 11.35 K/uL (4.8-10.8)
[2016-06-02 06:10] LABS: BUN/CREATININE RATIO 49.1 (10-20); CALCIUM 8.6 mg/dl (8.5-10.1); CREATININE 0.45 mg/dl (0.60-1.20); MAGNESIUM 2.3 mg/dl (1.8-2.4); POTASSIUM 4.1 mmol/L (3.5-5.1)
[2016-06-02 06:18] LABS: PHOSPHORUS 3.4 mg/dl (2.5-4.9)
[2016-06-02 07:19] LABS: BASO % 0.1 %; BASO ABS # 0.01 K/uL (0-0.2); COMPLETE YES; IG% 0.7 %; LYMPH % 2.3 %; LYMPH ABS # 0.26 K/uL (1.2-3.4); MEAN PLATELET VOLUME 8.9 fL (7.4-10.4); MONO % 5.4 %; NEUT % 91.5 %; PLATELET COUNT 90 K/uL (130-400); PLT ESTIMATE DECREASED
[2016-06-02] MEDS: INSULIN ASPART 100 UNITS/ML 3 ML PEN SC SCH ×4 (07:25→21:00)
--- NOTE | 2016-06-02 07:41 | DIAGNOSTIC IMAGING REPORT ---
CHEST ONE VIEW PORTABLE CLINICAL HISTORY: Pneumonia. COMPARISON STUDY: Chest radiograph June 01, 2016. FINDINGS: Bilateral subclavian [id number] and a tracheostomy tube are noted. Cardiomegaly is unchanged. There is no pneumothorax. There are suspected trace bilateral pleural effusions. Right basilar infiltration has progressed. Left mid and lower lung airspace opacity is slightly increased. IMPRESSION: Slight progression of multifocal airspace opacities within the lungs which favors multifocal pneumonia. Electronically signed by: Diallo Parker M.D. 06/02/2016 7:40 AM Dictated Date/Time: 06/02/2016 7:38 AM
[2016-06-02] MEDS: SODIUM CHLORIDE 0.65% NA SOLN 45 ML (OCEAN) SCH ×4 (08:00→21:33)
[2016-06-02] MEDS: DIPYRIDAMOLE/ASPIRIN CAP PO SCH ×2 (08:00→21:43)
[2016-06-02] MEDS: DOCUSATE SODIUM 100 MG CAP PO SCH ×2 (08:01→21:42)
[2016-06-02] MEDS: BusPIRone 15 MG TAB PO SCH ×2 (08:01→21:37)
[2016-06-02] MEDS: CALCIUM 600MG + VIT D 400 IU TAB PO SCH ×2 (08:01→21:42)
[2016-06-02] MEDS: PENTOSAN POLYSULFATE SODIUM 100 MG CAP PO SCH ×2 (08:02→21:37)
[2016-06-02] MEDS: ESCITALOPRAM OXALATE 20 MG TAB PO SCH (08:02)
[2016-06-02] MEDS: ASPIRIN 81 MG ECTAB PO SCH (08:02)
[2016-06-02] MEDS: AMLODIPINE BESYLATE 5 MG TAB PO SCH (08:03)
[2016-06-02] MEDS: MAGNESIUM CHLORIDE 64MG DELAYED REL TAB PO SCH ×2 (08:03→21:39)
[2016-06-02] MEDS: PANTOprazole SOD 40 MG TAB PO SCH ×2 (08:03→21:35)
[2016-06-02] MEDS: CLOPIDOGREL BISULFATE 75 MG TAB PO SCH (08:03)
[2016-06-02] MEDS: METHENAMINE HIPPURATE 1 GM TAB PO SCH ×2 (08:03→21:40)
[2016-06-02] MEDS: GABAPENTIN 100 MG CAP PO SCH ×2 (08:03→15:47)
[2016-06-02] MEDS: CHOLECALCIFEROL 1000 INTER.UNIT TAB PO SCH ×2 (08:04→21:41)
[2016-06-02] MEDS: ASCORBIC ACID 500 MG TAB PO SCH ×2 (08:04→21:40)
[2016-06-02] MEDS: ALLOPURINOL 100 MG TAB PO SCH (08:04)
[2016-06-02] MEDS: DOXYCYCLINE HYCLATE 100 MG CAP PO SCH ×2 (08:04→21:38)
[2016-06-02] MEDS: THIAMINE HCL 100 MG TAB PO SCH (08:04)
[2016-06-02 08:59] LABS: ISTAT ALLEN TEST Pass; ISTAT ARTERIAL BLOOD GAS HCO3 25 meq/L (19-24); ISTAT ARTERIAL BLOOD GAS PCO2 64 mmHg (35-46); ISTAT ARTERIAL BLOOD GAS PO2 67 mmHg (80-95); ISTAT CARBON DIOXIDE 27 mEq/l (24-31); ISTAT DELIVERY SYSTEM Ventilator; ISTAT FIO2 24 %; ISTAT PEEP 1; ISTAT RATE 16; ISTAT SITE L Radial; VE 11.5; Vt 550
--- NOTE | 2016-06-02 11:18 | DIAGNOSTIC IMAGING REPORT ---
ABDOMINAL ULTRASOUND, RIGHT UPPER QUADRANT HISTORY: Elevated liver function tests. COMPARISON: CT of the abdomen and pelvis January 12, 2014 and right upper quadrant ultrasound March 20, 2011. FINDINGS: Incidental note is made of a right pleural effusion. Liver morphology is normal. No hepatic lesions are identified. No intrahepatic biliary ductal dilatation is identified. There is mild dilatation of the common bile duct which measures 8 mm in caliber. This is likely similar to CT of January 12, 2014 when allowing for differences in technique. The pancreas body is normal. The head and tail obscured. No gallstones are identified. There is trace pericholecystic fluid, a nonspecific finding. There is no right hydronephrosis. There is marked right renal cortical thinning. IMPRESSION: 1. No gallstones. No gallbladder wall thickening. Trace pericholecystic fluid, a nonspecific finding. 2. Slight dilatation of the common bile duct, likely similar to CT of January 12, 2014. 3. Marked right renal atrophy. 4. Right pleural effusion. Electronically signed by: Diallo Parker M.D. 06/02/2016 11:16 AM Dictated Date/Time: 06/02/2016 11:11 AM
[2016-06-02] MEDS: ERTAPENEM IV 1 GM in SODIUM CHLOR 0.9% AD-VAN 50ML 50 ML IV SCH (11:50)
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
[2016-06-02 12:21] LABS: ISTAT ALLEN TEST Pass; ISTAT ARTERIAL BLOOD GAS HCO3 29 meq/L (19-24); ISTAT ARTERIAL BLOOD GAS PCO2 57 mmHg (35-46); ISTAT ARTERIAL BLOOD GAS PO2 87 mmHg (80-95); ISTAT ARTERIAL BLOOD GAS pH 7.31 (7.35-7.45); ISTAT CARBON DIOXIDE 31 mEq/l (24-31); ISTAT DELIVERY SYSTEM Ventilator; ISTAT FIO2 40 %; ISTAT PEEP 5; ISTAT RATE 20; ISTAT SITE L Radial; VE 12; Vt 600
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
[2016-06-02] MEDS ORDERED: POTASSIUM CHLORIDE 20 MEQ TABCR PO ONE (16:08)
[2016-06-02] MEDS ORDERED: MINERAL OIL 30 ML UDC PO ONE (16:15)
[2016-06-02] MEDS ORDERED: FUROSEMIDE 40 MG/4 ML VIAL IV ONE (16:30)
[2016-06-02] MEDS ORDERED: FUROSEMIDE INJ 40 MG in SYRINGE 0 ML IV ONE (16:30)
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
[2016-06-02] MEDS: POLYETHYLENE (MIRALAX) 17 GM PACK PO SCH (21:00)
[2016-06-02] MEDS: SOLIFENACIN 10 MG TAB PO SCH (21:34)
[2016-06-02] MEDS: ARTIFICIAL TEARS OP OINT 3.5 GM TUBE OPB SCH (21:35)
[2016-06-02] MEDS: GABAPENTIN 600 MG TAB PO SCH (21:37)
[2016-06-02] MEDS: FLUCONAZOLE 100 MG TAB PO SCH (21:39)
[2016-06-02] MEDS: QUETIAPINE FUMARATE 25 MG TAB PO SCH (21:42)
[2016-06-02] MEDS: BISACODYL 10 MG SUPP PR SCH (23:30)
[2016-06-03] VITALS (17 sets, daily range): BP systolic 151–204; BP diastolic 67–108; PULSE 86–114; TEMP 36.5–37.7; O2SAT 91–98
[2016-06-03] MEDS: ALBUT/IPRATROP 3MG/0.5MG NEB 3 ML VIAL INH SCH ×4 (03:00→21:16)
[2016-06-03 06:00] LABS: BASO % 0.2 %; BASO ABS # 0.02 K/uL (0-0.2); COMPLETE YES; HEMATOCRIT 40.7 % (37-47); IG% 1.2 %; LYMPH % 4.5 %; LYMPH ABS # 0.53 K/uL (1.2-3.4); MEAN CELL VOLUME 90.6 fL (80-100); MEAN CORPUSCULAR HEMOGLOBIN 29.2 pg (25-34); MEAN CORPUSCULAR HGB CONC 32.2 g/dl (32-36); MEAN PLATELET VOLUME 9.7 fL (7.4-10.4); MONO % 6.1 %; PLATELET COUNT 138 K/uL (130-400); RED BLOOD COUNT 4.49 M/uL (4.2-5.4)
[2016-06-03 06:24] LABS: ALT/SGPT 44 U/L (12-78); AST/SGOT 44 U/L (15-37); BLOOD UREA NITROGEN 19 mg/dl (7-18); BUN/CREATININE RATIO 42.2 (10-20); CALCIUM 9.5 mg/dl (8.5-10.1); CARBON DIOXIDE 27 mmol/L (21-32); CHLORIDE 101 mmol/L (98-107); CREATININE 0.46 mg/dl (0.60-1.20); GLUCOSE 78 mg/dl (70-99); MAGNESIUM 1.9 mg/dl (1.8-2.4); POTASSIUM 4.3 mmol/L (3.5-5.1); SODIUM 140 mmol/L (136-145)
[2016-06-03 06:26] LABS: ALKALINE PHOSPHATASE 246 U/L (45-117)
[2016-06-03] MEDS: INSULIN ASPART 100 UNITS/ML 3 ML PEN SC SCH ×4 (06:45→21:00)
[2016-06-03] MEDS: DIPYRIDAMOLE/ASPIRIN CAP PO SCH ×2 (07:38→21:06)
[2016-06-03] MEDS: BusPIRone 15 MG TAB PO SCH ×2 (07:38→21:09)
[2016-06-03] MEDS: ASPIRIN 81 MG ECTAB PO SCH (07:39)
[2016-06-03] MEDS: PENTOSAN POLYSULFATE SODIUM 100 MG CAP PO SCH ×2 (07:39→21:11)
[2016-06-03] MEDS: ESCITALOPRAM OXALATE 20 MG TAB PO SCH (07:39)
[2016-06-03] MEDS: GABAPENTIN 100 MG CAP PO SCH ×2 (07:40→15:53)
[2016-06-03] MEDS: CLOPIDOGREL BISULFATE 75 MG TAB PO SCH (07:40)
[2016-06-03] MEDS: PANTOprazole SOD 40 MG TAB PO SCH ×2 (07:40→21:10)
[2016-06-03] MEDS: AMLODIPINE BESYLATE 5 MG TAB PO SCH (07:40)
[2016-06-03] MEDS: METHENAMINE HIPPURATE 1 GM TAB PO SCH ×2 (07:41→21:08)
[2016-06-03] MEDS: MAGNESIUM CHLORIDE 64MG DELAYED REL TAB PO SCH ×2 (07:41→21:11)
[2016-06-03] MEDS: DOXYCYCLINE HYCLATE 100 MG CAP PO SCH ×2 (07:41→21:09)
[2016-06-03] MEDS: ALLOPURINOL 100 MG TAB PO SCH (07:41)
[2016-06-03] MEDS: SODIUM CHLORIDE 0.65% NA SOLN 45 ML (OCEAN) SCH ×4 (07:44→21:05)
[2016-06-03] MEDS ORDERED: FUROSEMIDE INJ 40 MG in SYRINGE 0 ML IV ONE (07:45)
[2016-06-03] MEDS ORDERED: PERFLUTREN LIPID MICROSPHERE (DEFINITY) IV ONE (08:15)
[2016-06-03] MEDS: DOCUSATE SODIUM 100 MG CAP PO SCH ×2 (09:00→21:10)
[2016-06-03] MEDS: CHOLECALCIFEROL 1000 INTER.UNIT TAB PO SCH ×2 (09:00→21:12)
[2016-06-03] MEDS: CALCIUM 600MG + VIT D 400 IU TAB PO SCH ×2 (09:00→21:12)
[2016-06-03] MEDS: THIAMINE HCL 100 MG TAB PO SCH (09:00)
[2016-06-03] MEDS: ASCORBIC ACID 500 MG TAB PO SCH ×2 (09:00→21:10)
[2016-06-03] MEDS: ERTAPENEM IV 1 GM in SODIUM CHLOR 0.9% AD-VAN 50ML 50 ML IV SCH (11:52)
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
--- NOTE | 2016-06-03 13:55 | ECHOCARDIOGRAM REPORT ---
*NOTICE TO RECEIVING DEMOCRAT AGENCY This information is strictly Confidential and protected under [place] law. [place] law prohibits you from making any further disclosure of this information unless further disclosure is expressly permitted by the written consent of the person to whom it pertains or is authorized by law. A general authorization for the release of medical or other information is not sufficient for this purpose. Hospital accepts no responsibility if the information is made available to any other person, INCLUDING THE PATIENT. Interpretation Summary * Name: CARY WILLSON Study Date: 06/03/2016 07:53 AM BP: 176/108 mmHg * Patient Location: .MSICU\S\E112\S\1 HR: 97 * : 1945 (M/d/yyyy) Gender: Female Height: 60 in * Age: 71 yrs Ethnicity: CA Weight: 167 lb * Ordering Physician: Jayesh Coleman * Referring Physician: Patricia Vasques MD * Performed By: Chan Jarrell RDCS * * Reason For Study: CHF * BSA: 1.7 m2 * -- Conclusions -- * 1. Normal left ventricular size with hyperdynamic systolic function. EF > 70%. No regional wall motion abnormalities. No significant left ventricular hypertrophy. * 2. The left atrium is mildly dilated. * 3. No significant valvular abnormalities visualized. * 4. Mild pulmonary hypertension suggested with an estimated right ventricular systolic pressure of 40 mmHg. * 5. Compared to prior study on 07/01/2015, tricuspid regurgitant jet is not as well visualized on current study and no longer appears moderate. Procedure Details * A complete two-dimensional transthoracic echocardiogram was performed (2D, M-mode, Doppler and color flow Doppler). * The study was technically difficult. * There were technical limitations due to patient'ssupine positioning while on mechanical ventilation * The study was technically difficult, but visualization was adequate with the administration of Definity ultrasound contrast. * A contrast injection of Definity was performed to improve assessment of LV function. * Contrast was injected into an intravenous site in the right arm. * One vial of Definity ultrasound contrast was diluted in normal saline to a total volume of 10 ml. A total of '3' ml of solution was administered during imaging. * Lot # [id number] of Definity utilized for procedure. * Expiration date 1FEB18. * The attending nurse who injected the contrast agent was JAYE Kraft. Left Ventricle * Normal left ventricular size with hyperdynamic systolic function. EF > 70%. No regional wall motion abnormalities. No significant left ventricular hypertrophy. Right Ventricle * The right ventricle is normal in size and function. * The right ventricular systolic function is normal as assessed by tricuspid annular plane systolic excursion (TAPSE) (normal >1.5 cm). Atria * The left atrium is mildly dilated. * Right atrial size is normal. * There is no evidence of atrial septal defect, but resolution does not allow assessment for a patent foramen ovale. Mitral Valve * The mitral valve is grossly normal. * There is no mitral valve stenosis. * There is trace mitral regurgitation. Tricuspid Valve * The tricuspid valve is not well visualized, but is grossly normal. * There is no tricuspid stenosis. * There is trace tricuspid regurgitation. Aortic Valve * The aortic valve is not well visualized. * No hemodynamically significant valvular aortic stenosis. * No aortic regurgitation is present. Pulmonic Valve * The pulmonary valve is inadequately visualized, but the Doppler data is adequate for interpretation. * There is no pulmonic valvular stenosis. * There is no significant pulmonary regurgitation. Great Vessels * The aortic root is normal size. * Ascending aorta of normal dimension Pericardium/Pleural * There is no pericardial effusion. Great Vessels * Mildly dilated IVC. MMode 2D Measurements and Calculations IVSd 1.1 cm IVSs 1.4 cm LVIDd 3.7 cm LVIDs 2.3 cm LVPWd 1.0 cm LVPWs 1.4 cm IVS/LVPW 1.0 FS 38.7 % EDV(Teich) 57.6 ml ESV(Teich) 17.3 ml EF(Teich) 69.9 % EDV(cubed) 50.1 ml ESV(cubed) 11.5 ml EF(cubed) 77.0 % % IVS thick 29.0 % % LVPW thick 36.4 % LV mass(C)d 119.4 grams LV mass(C)dI 69.1 grams/m\S\2 LV mass(C)s 97.1 grams LV mass(C)sI 56.2 grams/m\S\2 SV(Teich) 40.3 ml SI(Teich) 23.3 ml/m\S\2 SV(cubed) 38.6 ml SI(cubed) 22.3 ml/m\S\2 EPSS 0.67 cm Ao root diam 3.0 cm Ao root area 7.2 cm\S\2 ACS 1.8 cm LA dimension 4.2 cm asc Aorta Diam 2.8 cm LA/Ao 1.4 LVOT diam 1.9 cm LVOT area 2.8 cm\S\2 LVAd ap4 26.6 cm\S\2 LVLd ap4 7.4 cm EDV(MOD-sp4) 81.0 ml EDV(sp4-el) 100.6 ml LVAs ap4 11.0 cm\S\2 LVLs ap4 5.8 cm ESV(MOD-sp4) 17.0 ml ESV(sp4-el) 29.2 ml EF(MOD-sp4) 79.0 % EF(sp4-el) 70.9 % LVAd ap2 25.2 cm\S\2 LVLd ap2 7.7 cm EDV(MOD-sp2) 68.0 ml LVAs ap2 12.8 cm\S\2 LVLs ap2 7.5 cm ESV(MOD-sp2) 18.0 ml EF(MOD-sp2) 73.5 % SV(MOD-sp4) 64.0 ml SI(MOD-sp4) 37.0 ml/m\S\2 SV(MOD-sp2) 50.0 ml SI(MOD-sp2) 28.9 ml/m\S\2 SV(sp4-el) 71.4 ml SI(sp4-el) 41.3 ml/m\S\2 Doppler Measurements and Calculations MV V2 max 162.9 cm/sec MV max PG 10.6 mmHg MV V2 mean 88.7 cm/sec MV mean PG 4.0 mmHg MV V2 VTI 21.6 cm MV dec time 0.14 sec Ao V2 max 154.2 cm/sec Ao max PG 9.5 mmHg Ao max PG (full) 3.5 mmHg JASPREET(V,A) 2.3 cm\S\2 JASPREET(V,D) 2.3 cm\S\2 LV V1 max PG 6.0 mmHg LV V1 max 122.4 cm/sec PA V2 max 131.2 cm/sec PA max PG 6.9 mmHg TR max berenice 284.0 cm/sec RVSP(TR) 40.3 mmHg RAP systole 8.0 mmHg
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
[2016-06-03] MEDS: POLYETHYLENE (MIRALAX) 17 GM PACK PO SCH (21:00)
[2016-06-03] MEDS: ONDANSETRON INJ 2 MG/ML 2 ML VIAL IV PRN (21:03)
[2016-06-03] MEDS: ARTIFICIAL TEARS OP OINT 3.5 GM TUBE OPB SCH (21:06)
[2016-06-03] MEDS: FLUCONAZOLE 100 MG TAB PO SCH (21:08)
[2016-06-03] MEDS: GABAPENTIN 600 MG TAB PO SCH (21:12)
[2016-06-03] MEDS: SOLIFENACIN 10 MG TAB PO SCH (21:15)
[2016-06-03] MEDS: QUETIAPINE FUMARATE 25 MG TAB PO SCH (21:16)
[2016-06-03] MEDS: BISACODYL 10 MG SUPP PR SCH (21:49)
[2016-06-04] VITALS (50 sets, daily range): BP systolic 126–176; BP diastolic 59–107; PULSE 75–98; TEMP 36.4–37.2; O2SAT 92–99
[2016-06-04] MEDS: ALBUT/IPRATROP 3MG/0.5MG NEB 3 ML VIAL INH SCH ×4 (02:39→20:56)
[2016-06-04 05:54] LABS: ISTAT ALLEN TEST Pass; ISTAT ARTERIAL BLOOD GAS HCO3 33 meq/L (19-24); ISTAT ARTERIAL BLOOD GAS PCO2 69 mmHg (35-46); ISTAT ARTERIAL BLOOD GAS PO2 65 mmHg (80-95); ISTAT ARTERIAL BLOOD GAS pH 7.28 (7.35-7.45); ISTAT CARBON DIOXIDE 35 mEq/l (24-31); ISTAT DELIVERY SYSTEM Ventilator; ISTAT FIO2 0 %; ISTAT PEEP 0; ISTAT RATE 16; ISTAT SITE L Radial; VE 8.8; Vt 550
[2016-06-04 06:01] LABS: BASO % 0.1 %; BASO ABS # 0.02 K/uL (0-0.2); COMPLETE YES; HEMATOCRIT 38.5 % (37-47); IG% 0.6 %; LYMPH ABS # 0.44 K/uL (1.2-3.4); MEAN CELL VOLUME 91.2 fL (80-100); MEAN CORPUSCULAR HEMOGLOBIN 28.9 pg (25-34); MEAN CORPUSCULAR HGB CONC 31.7 g/dl (32-36); MEAN PLATELET VOLUME 9.6 fL (7.4-10.4); MONO % 6.5 %; NEUT % 89.8 %; PLATELET COUNT 108 K/uL (130-400); RED BLOOD COUNT 4.22 M/uL (4.2-5.4); WHITE BLOOD COUNT 14.46 K/uL (4.8-10.8)
[2016-06-04 06:35] LABS: ALT/SGPT 49 U/L (12-78); AST/SGOT 49 U/L (15-37); BLOOD UREA NITROGEN 18 mg/dl (7-18); BUN/CREATININE RATIO 36.6 (10-20); CALCIUM 8.7 mg/dl (8.5-10.1); CARBON DIOXIDE 32 mmol/L (21-32); CHLORIDE 95 mmol/L (98-107); GLUCOSE 107 mg/dl (70-99); MAGNESIUM 1.7 mg/dl (1.8-2.4); POTASSIUM 3.2 mmol/L (3.5-5.1); SODIUM 136 mmol/L (136-145)
[2016-06-04 06:36] LABS: ALKALINE PHOSPHATASE 214 U/L (45-117)
[2016-06-04] MEDS: INSULIN ASPART 100 UNITS/ML 3 ML PEN SC SCH ×4 (07:55→21:00)
[2016-06-04] MEDS: POTASSIUM CHLR 10 MEQ / WTR 10 MEQ in PREMIXED WATER 100 ML IV SCH ×3 (08:25→12:22)
[2016-06-04] MEDS ORDERED: LIDOCAINE HCL 2% LOCAL 50ML VIAL INFIL ONE (08:29)
[2016-06-04] MEDS ORDERED: LIDOCAINE 4% W/AFRIN NASAL SOLN 4ML ONE (08:29)
[2016-06-04] MEDS: MAGNESIUM SULFATE 1GM / D5W 1 GM in PREMIXED IN D5W 100 ML IV SCH ×2 (08:42→09:51)
[2016-06-04] MEDS: SODIUM CHLORIDE 0.65% NA SOLN 45 ML (OCEAN) SCH ×4 (08:56→21:49)
[2016-06-04] MEDS: DIPYRIDAMOLE/ASPIRIN CAP PO SCH ×2 (08:57→21:58)
[2016-06-04] MEDS: BusPIRone 15 MG TAB PO SCH ×2 (08:57→21:55)
[2016-06-04] MEDS: PENTOSAN POLYSULFATE SODIUM 100 MG CAP PO SCH ×2 (08:58→21:56)
[2016-06-04] MEDS: CALCIUM 600MG + VIT D 400 IU TAB PO SCH ×2 (08:58→21:53)
[2016-06-04] MEDS: DOCUSATE SODIUM 100 MG CAP PO SCH ×2 (08:58→21:58)
[2016-06-04] MEDS: ASPIRIN 81 MG ECTAB PO SCH (08:58)
[2016-06-04] MEDS: GABAPENTIN 100 MG CAP PO SCH ×2 (08:59→16:31)
[2016-06-04] MEDS: ESCITALOPRAM OXALATE 20 MG TAB PO SCH (08:59)
[2016-06-04] MEDS: DOXYCYCLINE HYCLATE 100 MG CAP PO SCH ×2 (09:00→21:55)
[2016-06-04] MEDS: ASCORBIC ACID 500 MG TAB PO SCH ×2 (09:00→21:56)
[2016-06-04] MEDS: AMLODIPINE BESYLATE 5 MG TAB PO SCH (09:00)
[2016-06-04] MEDS: PANTOprazole SOD 40 MG TAB PO SCH ×2 (09:00→21:57)
[2016-06-04] MEDS: METHENAMINE HIPPURATE 1 GM TAB PO SCH ×2 (09:00→21:54)
[2016-06-04] MEDS: THIAMINE HCL 100 MG TAB PO SCH (09:00)
[2016-06-04] MEDS: MAGNESIUM CHLORIDE 64MG DELAYED REL TAB PO SCH ×2 (09:00→21:57)
[2016-06-04] MEDS: CLOPIDOGREL BISULFATE 75 MG TAB PO SCH (09:00)
[2016-06-04] MEDS: ALLOPURINOL 100 MG TAB PO SCH (09:01)
[2016-06-04] MEDS: CHOLECALCIFEROL 1000 INTER.UNIT TAB PO SCH ×2 (09:01→21:57)
--- NOTE | 2016-06-04 10:00 | Infectious Disease Progress Nt ---
Progress Note Date of Service Jun 04, 2016. Subjective Pt evaluation today including: conversation w/ patient, conversation w/ family (caregiver), physical exam, chart review, lab review, review of studies, conversation w/ oracle application consultant (Dr. Luther), review of inpatient medication list WBC count this morning was 14.46. Platelet count is 108. Alk phos continues to be elevated at 214. AST is also mildly elevated at 49. Final urine culture and blood cultures show no growth. Liver U/S showed no gallbladder thickening, but did show trace pericholecystic fluid which is nonspecific and also slight dilatation of the common bile duct and marked right renal atrophy. Patient continues to be lethargic. She does make some eye contact this morning, but continues to have trouble making conversation or staying awake. I did also speak to Dr. Luther about this patient. Chest X-Ray from Saturday continued to show some mild progression of her multifocal airspace opacities. All Other Systems: Reviewed and Negative Medications Current Inpatient Medications Medications (Trade) Dose Ordered Sig/Tasha Route Start Time Stop Time Status Last Admin Dose Admin Acetaminophen (Tylenol Tab) 650 mg Q4H PRN PO 05/28/16 23:00 06/27/16 22:59 05/30/16 21:38 650 MG Levalbuterol (Xopenex 1.25MG/ 3ML Neb) 1.25 mg Q4H PRN INH 05/28/16 23:00 06/27/16 22:59 Ondansetron HCl (Zofran Inj) 4 mg Q6H PRN IV 05/28/16 23:00 06/27/16 22:59 06/03/16 21:03 4 MG Allopurinol (Zyloprim Tab) 100 mg DAILY PO 05/29/16 09:00 06/28/16 08:59 06/04/16 09:01 100 MG Ascorbic Acid (Vitamin C Tab) 500 mg BID PO 05/29/16 09:00 06/28/16 08:59 06/04/16 09:00 500 MG Aspirin (Ecotrin Tab) 81 mg DAILY PO 05/29/16 09:00 06/28/16 08:59 06/04/16 08:58 81 MG Dipyridamole/ Aspirin (Aggrenox 200MG/ 25MG Cap) 1 cap BID PO 05/29/16 09:00 06/28/16 08:59 06/04/16 08:57 1 CAP Buspirone HCl (BusPAR TAB) 7.5 mg BID PO 05/29/16 09:00 06/28/16 08:59 06/04/16 08:57 7.5 MG Calcium/Vitamin D (Caltrate Plus Tab) 1 tab BID PO 05/29/16 09:00 06/28/16 08:59 06/04/16 08:58 1 TAB Cholecalciferol (Vitamin D Tab) 1,000 inter.unit BID PO 05/29/16 09:00 06/28/16 08:59 06/04/16 09:01 1,000 INTER.UNIT Clopidogrel Bisulfate (plAVix TAB) 75 mg DAILY PO 05/29/16 09:00 06/28/16 08:59 06/04/16 09:00 75 MG Docusate Sodium (coLACE CAP) 100 mg BID PO 05/29/16 09:00 06/28/16 08:59 06/04/16 08:58 100 MG Escitalopram Oxalate (Lexapro Tab) 20 mg QAM PO 05/29/16 09:00 06/28/16 08:59 06/04/16 08:59 20 MG Fluconazole (Diflucan Tab) 100 mg QPM PO 05/29/16 21:00 06/08/16 20:59 06/03/16 21:08 100 MG Gabapentin (Neurontin Cap) 100 mg QAM PO 05/29/16 09:00 06/28/16 08:59 06/04/16 08:59 100 MG Gabapentin (Neurontin Cap) 200 mg 1600 PO 05/29/16 16:00 06/28/16 15:59 06/03/16 15:53 200 MG Gabapentin (Neurontin Tab) 600 mg HS PO 05/29/16 21:00 06/28/16 20:59 06/03/16 21:12 600 MG Magnesium Chloride (Slow-Mag Tab) 64 mg BID PO 05/29/16 09:00 06/28/16 08:59 06/04/16 09:00 64 MG Methenamine Hippurate (Urex Tab) 1 gm BID PO 05/29/16 09:00 06/08/16 08:59 06/04/16 09:00 1 GM Pantoprazole Sodium (Protonix Tab) 40 mg BID PO 05/29/16 09:00 06/28/16 08:59 06/04/16 09:00 40 MG Phenazopyridine HCl (Pyridium Tab) 200 mg DAILY PRN PO 05/28/16 23:00 06/27/16 22:59 Miscellaneous Information (Order Awaiting Action) 1 ea QS N/A 05/29/16 08:00 06/28/16 07:59 Pentosan Polysulfate Sodium (Elmiron) 100 mg BID PO 05/29/16 09:00 06/28/16 08:59 06/04/16 08:58 100 MG Artificial Tears (Artificial Tears) 2 drops BID PRN OPB 05/29/16 04:45 06/28/16 04:44 Solifenacin (Vesicare) 10 mg HS PO 05/29/16 21:00 06/28/16 20:59 06/03/16 21:15 10 MG Thiamine HCl (Vitamin B-1 Tab) 100 mg DAILY PO 05/29/16 09:00 06/28/16 08:59 06/04/16 09:00 100 MG Artificial Tears (Lacri-Lube Oph Oint) 1 appln HS OPB 05/29/16 21:00 06/28/16 20:59 06/03/16 21:06 1 APPLN Insulin Aspart (novoLOG ASPART) SLIDING SCALE G... ACHS SC 05/29/16 06:45 06/28/16 06:59 05/31/16 12:17 1 UNITS Bisacodyl (Dulcolax Supp) 10 mg TuTh@0530 HI 05/29/16 06:15 06/28/16 06:14 05/31/16 05:30 10 MG Bisacodyl (Dulcolax Supp) 10 mg SuMoWeFrSa@2330 HI 05/30/16 23:30 06/29/16 23:29 06/03/16 21:49 10 MG Amlodipine Besylate (Norvasc Tab) 2.5 mg DAILY PO 05/29/16 09:00 06/28/16 08:59 06/04/16 09:00 2.5 MG Polyethylene 17 gm 17 gm QPM PO 05/29/16 21:00 06/28/16 20:59 06/01/16 16:39 17 GM Ertapenem/Sodium Chloride (Invanz Iv/Nss Ad-Van 50ml) 50 ml @ 120 mls/hr Q24H IV 05/29/16 12:00 06/05/16 11:59 06/03/16 11:52 120 MLS/HR Albuterol/ Ipratropium (Duoneb) 3 ml Q6R INH 05/29/16 15:00 06/28/16 14:59 06/04/16 08:14 3 ML Quetiapine Fumarate (seroQUEL TAB) 25 mg HS PO 05/29/16 22:00 06/28/16 21:59 06/03/16 21:16 25 MG Sodium Chloride ([place] Nasal Golva) 2 sprays QID NA 05/30/16 21:00 06/29/16 20:59 06/04/16 08:56 2 SPRAYS Multi-Ingredient Ointment (Eucerin Unscented Cr) 0.25 appln BID PRN EXT 05/30/16 22:00 06/29/16 21:59 Doxycycline Hyclate (Vibramycin Cap) 100 mg BID PO 06/01/16 10:00 06/08/16 09:59 06/04/16 09:00 100 MG Quetiapine Fumarate 25 mg 25 mg TID PRN PO 06/01/16 11:45 07/01/16 11:44 06/01/16 18:18 25 MG Potassium Chloride 10 meq/ Prmx 100 ml @ 100 mls/hr Q1H IV 06/04/16 08:00 06/04/16 10:59 06/04/16 08:25 100 MLS/HR Magnesium Sulfate/ Prmx (Magnesium Sulfate/Premixed D5W) 100 ml @ 100 mls/hr Q1H IV 06/04/16 08:30 06/04/16 10:29 06/04/16 08:42 100 MLS/HR Objective Vital Signs Date Time Temp Pulse Resp B/P Pulse Ox O2 Delivery O2 Flow Rate FiO2 06/04/16 08:14 84 16 97 Mechanical Ventilator 4.0 06/04/16 05:58 84 21 132/73 95 Mechanical Ventilator 06/04/16 04:00 24 06/04/16 04:00 94 Mechanical Ventilator 40 06/04/16 03:58 36.5 94 25 126/59 92 Mechanical Ventilator 24 06/04/16 02:39 86 16 97 Mechanical Ventilator 4.0 06/04/16 01:58 87 21 155/66 95 Mechanical Ventilator 24 06/04/16 00:58 36.6 90 30 160/67 92 Mechanical Ventilator 24 06/03/16 23:59 24 06/03/16 23:59 94 Mechanical Ventilator 40 06/03/16 22:00 114 18 174/84 97 Mechanical Ventilator 40 06/03/16 21:16 94 20 91 Mechanical Ventilator 4.0 06/03/16 20:00 40 06/03/16 20:00 94 Mechanical Ventilator 40 06/03/16 20:00 36.5 92 22 180/102 92 Mechanical Ventilator 40 06/03/16 18:00 86 23 194/91 95 Mechanical Ventilator 40 06/03/16 17:45 40 06/03/16 16:00 Mechanical Ventilator 40 06/03/16 16:00 40 06/03/16 16:00 37.1 88 23 204/93 94 Mechanical Ventilator 40 06/03/16 15:35 40 06/03/16 14:00 92 20 98 Mechanical Ventilator 40 06/03/16 14:00 91 23 197/88 96 Mechanical Ventilator 40 06/03/16 12:00 40 06/03/16 12:00 37.0 91 23 179/77 96 Mechanical Ventilator 40 06/03/16 12:00 96 Mechanical Ventilator 40 06/03/16 11:30 40 06/03/16 10:00 96 24 95 Mechanical Ventilator 40 Physical Exam General Appearance: + pertinent finding (lethargic) Eyes: sclerae normal ENT: hearing grossly normal Neck: + pertinent finding (tracheostomy, brusining around site) Respiratory/Chest: chest non-tender, + crackles (continued coarse sounds throughout bilateral lobes especially lower lobes), + pertinent finding ( ventilated) Cardiovascular: regular rate, rhythm Abdomen: normal bowel sounds, + distended (slightly) Neurologic/Psychiatric: + disoriented, + pertinent finding (lethargic) Skin: normal color, + pertinent finding (bruising on right arm and around tracheostomy site) Laboratory Results ABDOMINAL ULTRASOUND, RIGHT UPPER QUADRANT HISTORY: Elevated liver function tests. COMPARISON: CT of the abdomen and pelvis January 12, 2014 and right upper quadrant ultrasound March 20, 2011. FINDINGS: Incidental note is made of a right pleural effusion. Liver morphology is normal. No hepatic lesions are identified. No intrahepatic biliary ductal dilatation is identified. There is mild dilatation of the common bile duct which measures 8 mm in caliber. This is likely similar to CT of January 12, 2014 when allowing for differences in technique. The pancreas body is normal. The head and tail obscured. No gallstones are identified. There is trace pericholecystic fluid, a nonspecific finding. There is no right hydronephrosis. There is marked right renal cortical thinning. IMPRESSION: 1. No gallstones. No gallbladder wall thickening. Trace pericholecystic fluid, a nonspecific finding. 2. Slight dilatation of the common bile duct, likely similar to CT of January 12, 2014. 3. Marked right renal atrophy. 4. Right pleural effusion. Item Value Date Time Blood Culture - Final Complete 05/28/162034 Blood NO GROWTH Blood Culture - Final Complete 05/28/161944 Blood NO GROWTH CHEST ONE VIEW PORTABLE CLINICAL HISTORY: Pneumonia. COMPARISON STUDY: Chest radiograph June 01, 2016. FINDINGS: Bilateral subclavian [id number] and a tracheostomy tube are noted. Cardiomegaly is unchanged. There is no pneumothorax. There are suspected trace bilateral pleural effusions. Right basilar infiltration has progressed. Left mid and lower lung airspace opacity is slightly increased. IMPRESSION: Slight progression of multifocal airspace opacities within the lungs which favors multifocal pneumonia. Last 24 Hours Test 06/03/16 11:08 06/03/16 16:02 06/03/16 21:04 06/04/16 05:35 Bedside Glucose 125 mg/dl 141 mg/dl 142 mg/dl White Blood Count 14.46 K/uL Red Blood Count 4.22 M/uL Hemoglobin 12.2 g/dL Hematocrit 38.5 % Mean Corpuscular Volume 91.2 fL Mean Corpuscular Hemoglobin 28.9 pg Mean Corpuscular Hemoglobin Concent 31.7 g/dl Platelet Count 108 K/uL Mean Platelet Volume 9.6 fL Neutrophils (%) (Auto) 89.8 % Lymphocytes (%) (Auto) 3.0 % Monocytes (%) (Auto) 6.5 % Eosinophils (%) (Auto) 0.0 % Basophils (%) (Auto) 0.1 % Neutrophils # (Auto) 12.97 K/uL Lymphocytes # (Auto) 0.44 K/uL Monocytes # (Auto) 0.94 K/uL Eosinophils # (Auto) 0.00 K/uL Basophils # (Auto) 0.02 K/uL RDW Standard Deviation 61.9 fL RDW Coefficient of Variation 18.6 % Immature Granulocyte % (Auto) 0.6 % Immature Granulocyte # (Auto) 0.09 K/uL Nucleated RBC Absolute Count (auto) 0.03 K/uL Nucleated Red Blood Cells % 0.2 % Sodium Level 136 mmol/L Potassium Level 3.2 mmol/L Chloride Level 95 mmol/L Carbon Dioxide Level 32 mmol/L Anion Gap 9.0 mmol/L Blood Urea Nitrogen 18 mg/dl Creatinine 0.50 mg/dl Est Creatinine Clear Calc Drug Dose 93.2 ml/min Estimated GFR () 114.5 Estimated GFR (Non- 98.8 BUN/Creatinine Ratio 36.6 Random Glucose 107 mg/dl Calcium Level 8.7 mg/dl Magnesium Level 1.7 mg/dl Total Bilirubin 0.3 mg/dl Direct Bilirubin < 0.1 mg/dl Aspartate Amino Transf (AST/SGOT) 49 U/L Alanine Aminotransferase (ALT/SGPT) 49 U/L Alkaline Phosphatase 214 U/L Total Protein 6.8 gm/dl Albumin 1.9 gm/dl Test 06/04/16 05:40 Blood Gas Sample Site L Radial Bedside Blood Gas pH (LAB) 7.28 Bedside Blood Gas pCO2 (LAB) 69 mmHg Bedside Blood Gas pO2 (LAB) 65 mmHg Bedside Blood Gas HCO3 (LAB) 33 meq/L Bedside Blood Gas Total CO2 35 mEq/l Bedside Blood Gas Base Excess (LAB) 6.0 meq/L Bedside Blood Gas O2 Saturation 89.0 % Yogesh Test Pass Oxygen Delivery Device Ventilator Bedside Oxygen Rate (breaths/min) 16 Blood Gas Minute Ventilation 8.8 Bedside FiO2 0 % Blood Gas Tidal Volume 550 Blood Gas PEEP 0 Assessment and Plan (1) vent dep Status: Chronic Onset: 10/23/2010 (2) Quadriplegia Status: Chronic Onset: 10/23/2010 (3) Chronic respiratory failure Status: Chronic Onset: 10/23/2010 (4) Chronic urinary tract infection Status: Chronic Onset: 11/26/2012 (5) Hyperkalemia Status: Acute Patient with history of recurrent UTI's, possible aspiration pneumonia, and quadriplegia who continues to be stable, but her WBC count is slightly elevated this morning and she does continue to be very lethargic. She continues to have some dark secretions from her tracheostomy. Dr. Luther is considering bronchoscopy, but will await pulmonary opinion. If the patient continues to have worsening on CXR, increasing WBC count, and does not improve, may need to consider addition of MRSA coverage/change in abx therapy. She continues on Doxycycline and Ertapenem, and would continue these pending further workup. PROVIDER ADDENDUM: Patient examined and reviewed with Ms. Martinez. Agree with above assessment.
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
[2016-06-04] MEDS: ERTAPENEM IV 1 GM in SODIUM CHLOR 0.9% AD-VAN 50ML 50 ML IV SCH (11:35)
[2016-06-04] MEDS ORDERED: MIDAZOLAM HCL 5 MG/ML 1 ML VIAL ONE (12:17)
[2016-06-04] MEDS ORDERED: FENTANYL CITRATE INJ 50 MCG/1 ML 2 ML VIAL ONE (12:18)
--- NOTE | 2016-06-04 14:21 | Bronchoscopy Procedure Note ---
Bronchoscopy Procedure Note Procedure: Bronchoscopy, BAL, conscious sedation Indication: Leukocytosis with a right lower lobe infiltrate Postoperative diagnosis: Right lower lobe pneumonia Consent: Obtained to the patient witnessed by the nurse placed into the chart Analgesia: Lidocaine gel: 5 cc via the right naris Sedation: Ativan IV: 5 mg Fentanyl IV: 100 g Procedure: The Olympus video bronchoscope was used for this procedure. It was initially passed down through the right naris which was anatomically within normal limits Posterior naris: Anatomically within normal limits Posterior oropharynx/glottis/vocal cords: Anatomically within normal limits Subglottis: Anatomically within normal limits Trachea: Approximately the third tracheal ring there was a tracheostomy with tracheotomy tube in place The ostomy was intact no signs of breakdown or infection No tracheal bronchomalacia was noted Leonarda: Sharp within normal limits Left bronchial tree: Left mainstem, anatomically within normal limits Left upper lobe/lingula: Anatomically within normal limits Left lower lobe: Anatomically within normal limits with diffuse mucus plugs throughout easily cleared with suctioning Right bronchial tree: Right mainstem, anatomically within normal limits Right upper lobe: Anatomically within normal limits Bronchus intermedius: Anatomically within normal limits Right middle lobe: Anatomically within normal limits/mucous plugging at the ostium as well as the tertiary bifurcation easily removed Right lower lobe: Anatomically within normal limits external collapse and patient's positioning noted diffuse mucous plugs Right lower lobe lateral subsegment mucous plugs followed by brown liquid secretions removed BAL: Right lower lobe lateral subsegment approximately 80 cc of fluid was introduced with approximately 60 cc return of brown free-flowing fluid Labs: This will be sent off for Gram stain, culture as well as fungal analysis Complications: None
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
[2016-06-04] MEDS: POLYETHYLENE (MIRALAX) 17 GM PACK PO SCH (16:58)
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
[2016-06-04] MEDS: ARTIFICIAL TEARS OP OINT 3.5 GM TUBE OPB SCH (21:49)
[2016-06-04] MEDS: BISACODYL 10 MG SUPP PR SCH (21:51)
[2016-06-04] MEDS: FLUCONAZOLE 100 MG TAB PO SCH (21:54)
[2016-06-04] MEDS: QUETIAPINE FUMARATE 25 MG TAB PO SCH (21:55)
[2016-06-04] MEDS: GABAPENTIN 600 MG TAB PO SCH (21:56)
[2016-06-04] MEDS: SOLIFENACIN 10 MG TAB PO SCH (21:58)
[2016-06-04] MEDS: ACETAMINOPHEN 325 MG TAB PO PRN (22:01)
[2016-06-05] VITALS (16 sets, daily range): BP systolic 120–176; BP diastolic 55–101; PULSE 84–105; TEMP 36.8–37; O2SAT 91–98
[2016-06-05] MEDS: ALBUT/IPRATROP 3MG/0.5MG NEB 3 ML VIAL INH SCH ×4 (02:13→20:14)
[2016-06-05] MEDS: BISACODYL 10 MG SUPP PR SCH (05:20)
[2016-06-05 05:47] LABS: ISTAT ALLEN TEST Pass; ISTAT ARTERIAL BLOOD GAS HCO3 31 meq/L (19-24); ISTAT ARTERIAL BLOOD GAS PCO2 57 mmHg (35-46); ISTAT ARTERIAL BLOOD GAS PO2 63 mmHg (80-95); ISTAT ARTERIAL BLOOD GAS pH 7.35 (7.35-7.45); ISTAT CARBON DIOXIDE 33 mEq/l (24-31); ISTAT DELIVERY SYSTEM Ventilator; ISTAT FIO2 30 %; ISTAT PEEP 8; ISTAT RATE 20; ISTAT SITE R Radial; VE 8.2; Vt 600
[2016-06-05 06:33] LABS: ALK PHOS ISO-INTESTINE 2 % (1-24); ALK PHOS ISO-LIVER 66 % (25-69); ALK PHOS ISO-PLACENTAL 0 % (<=0); ALK PHOS MACROHEPATIC 0 % (<=0); ALP (ALK P'TASE) 209 U/L (33-130)
[2016-06-05 06:34] LABS: BASO % 0.1 %; BASO ABS # 0.01 K/uL (0-0.2); COMPLETE YES; HEMATOCRIT 35.4 % (37-47); IG% 0.8 %; LYMPH % 4.4 %; LYMPH ABS # 0.51 K/uL (1.2-3.4); MEAN CELL VOLUME 88.1 fL (80-100); MEAN CORPUSCULAR HEMOGLOBIN 28.1 pg (25-34); MEAN CORPUSCULAR HGB CONC 31.9 g/dl (32-36); MEAN PLATELET VOLUME 8.9 fL (7.4-10.4); NEUT % 89.7 %; PLATELET COUNT 118 K/uL (130-400); RED BLOOD COUNT 4.02 M/uL (4.2-5.4); WHITE BLOOD COUNT 11.53 K/uL (4.8-10.8)
[2016-06-05 07:09] LABS: BUN/CREATININE RATIO 37.2 (10-20); CREATININE 0.53 mg/dl (0.60-1.20); MAGNESIUM 2.2 mg/dl (1.8-2.4); PHOSPHORUS 3.2 mg/dl (2.5-4.9); POTASSIUM 4.1 mmol/L (3.5-5.1)
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
[2016-06-05] MEDS: INSULIN ASPART 100 UNITS/ML 3 ML PEN SC SCH ×4 (09:01→20:45)
[2016-06-05] MEDS: SODIUM CHLORIDE 0.65% NA SOLN 45 ML (OCEAN) SCH ×4 (10:22→20:30)
[2016-06-05] MEDS: THIAMINE HCL 100 MG TAB PO SCH (11:37)
[2016-06-05] MEDS: DIPYRIDAMOLE/ASPIRIN CAP PO SCH ×2 (11:37→20:27)
[2016-06-05] MEDS: ALLOPURINOL 100 MG TAB PO SCH (11:37)
[2016-06-05] MEDS: CLOPIDOGREL BISULFATE 75 MG TAB PO SCH (11:37)
[2016-06-05] MEDS: DOCUSATE SODIUM 100 MG CAP PO SCH ×2 (11:37→21:05)
[2016-06-05] MEDS: GABAPENTIN 100 MG CAP PO SCH ×2 (11:39→17:03)
[2016-06-05] MEDS: ESCITALOPRAM OXALATE 20 MG TAB PO SCH (11:39)
[2016-06-05] MEDS: CHOLECALCIFEROL 1000 INTER.UNIT TAB PO SCH ×2 (11:39→21:06)
[2016-06-05] MEDS: PANTOprazole SOD 40 MG TAB PO SCH ×2 (11:39→21:05)
[2016-06-05] MEDS: PENTOSAN POLYSULFATE SODIUM 100 MG CAP PO SCH ×2 (11:39→20:30)
[2016-06-05] MEDS: AMLODIPINE BESYLATE 5 MG TAB PO SCH (11:39)
[2016-06-05] MEDS: MAGNESIUM CHLORIDE 64MG DELAYED REL TAB PO SCH ×2 (11:39→21:04)
[2016-06-05] MEDS: ASCORBIC ACID 500 MG TAB PO SCH ×2 (11:39→21:04)
[2016-06-05] MEDS: ASPIRIN 81 MG ECTAB PO SCH (11:39)
[2016-06-05] MEDS: METHENAMINE HIPPURATE 1 GM TAB PO SCH ×2 (11:40→20:28)
[2016-06-05] MEDS: DOXYCYCLINE HYCLATE 100 MG CAP PO SCH ×2 (11:40→20:27)
[2016-06-05] MEDS: BusPIRone 15 MG TAB PO SCH ×2 (11:40→20:28)
[2016-06-05] MEDS: CALCIUM 600MG + VIT D 400 IU TAB PO SCH ×2 (11:40→21:04)
--- NOTE | 2016-06-05 11:42 | Critical Care Progress Note ---
Critical Care Progress Note Date of Service Jun 05, 2016. Attending Dr. Aleyda Douglas Florence Farris is a 71yo Quadriplegic female who has an extensive PMHx requiring multiple hospitalizations for infectious issues. She was admitted presently for hyperkalemia, which has since resolved and aspiration pneumonia with ongoing treatment. She is set to finish her 7 day course of Ertapenem IV. According to her care givers she is still down from her normal spunky baseline, but is much improved since her lethargic presentation on Saturday. She has no acute events overnight. Since my last visit with Florence she has been placed on a hospital ventilator and bronch'd by Dr. Luther. She is pulling adequate volumes today. Her caregiver was replacing bandaging under her trach when I entered. There is a skin tear present with older blood on the right side under trach unit. Pt nodded that this area was painful. She refused to follow fingers for EOM, stating she didn't want to do it. Pt is eager to go home. ROS is difficult to obtain due to pt condition. She is nodding her head no to fever, chills, trouble breathing, cough, abd pain, or pain in general. Objective General - NAD, resting in bed on ventilator via tracheostomy Eyes -pupils equal and sluggish, pt refused to follow EOM, however, she made eye contact and moved appropriately, No icterus, gaze conjugate ENT - Mucosa moist, no lesions or candidiasis Neck - Supple, trachea midline, no masses or lymphadenopathy, no JVD or bruits, no air leak noted Lungs - No paradoxical chest wall movement, Very coarse to auscultation bilaterally with crackles and rhonchi in right base, mild crackles noted to the left base. No wheezing noted. Heart - Reg rate and rhythm, No murmur, rubs, clicks, or gallops appreciated Abdomen - BS present, no bruits noted, tympanic to percussion, soft, nontender, distended, no organomegaly Extremities - No edema, pedal pulses intact Neuro - A&O X 2 Strength: Patient moves head and is trying to mouth communication; quadriplegic cannot assess extremity strength Reflexes: Areflexive CN: Pupils equal and sluggish, EOM appear Appropriate as stated above, no facial asymmetry, uvula/tongue midline Assessment & Plan (1) vent dep (2) Quadriplegia (3) Chronic respiratory failure (4) Chronic urinary tract infection (5) Hyperkalemia (6) Aspiration pneumonia Neuro: * Minimal Pain noted; continue Tylenol PRN * Monitor Neuro status, avoid sedatives * Continue Home Lexapro Pulm: Ab.35/57/63/31, mild improvement * Obtain Repeat CXR * Dr. Luther following, Vent changes per his recommendations * Will have home agency change her home vent to new settings prior to discharge * ABX: Last day of Ertapenem, Day 07/20 Doxycycline; finish Fluconazole as planned Day 11/22 * ID following, appreciate input * Formal Speech Eval pending 2/2 increased chronic risk of aspiration * Continue Respiratory Regimen * Duoneb q6hrs * Bronchial Washings Pending ID: [id number] trending down, Afeb * ABX as note above in pulm * ID consult in place & following Cardiovascular: NSR, Chronic anticoagulation in place * Continue home Plavix and Aggrenox * Monitor on Telemetry : Neg 4.2 L BUN/Cr: 20/0.53 * Monitor Daily Labs * Chronic Staples in place to gravity, Monitor I&O's * Chronic UTIs; Monitor GI: Considering PEG tube 2/2 chronic tracheostomy and aspiration risk BM this AM * GI Prophylaxis: Protonix in place * Dental Soft Diet in place; Pt tolerating * Continue Bowel Regimen Endocrine: BS today * SSI in place with Novolog Heme: * Anticoagulated as above * Monitor daily CBC Access: Right Chest Port accessed, Left Upper Arm PIV in place CCT: 0 minutes; Level 3 inpatient billing, Not including any billable procedures. Thank you for including us in the care of this patient. Please review Dr. Aleyda Moses's addendum for further recommendations. Bottle Booth Attendant Attending: I have personally interviewed and examined the patient. Her care was discussed on multidisciplinary rounds and I have reviewed the above documentation and discussed the patient with Josselin Ballesteros PA-C. I agree with what is documented. She is not have many trach tube secretions and was on the hospital's ventilator last night with the cuff down. ABG noted. Cuff eventually inflated due to tachypnea. Patient has some "pelvic" pain and is getting some Tylenol. She tells me she is "confident she will come off the vent" and her filter plant supervisor at bedside believes her mental status is better but that she has periods of confusion. Lung sounds and CXR unchanged. Home Care company contacted to change patient's home vent settings. Will trial her on that prior to d/c and continue abx per ID recommendations. Consults & Procedures Consultants: Pulmonary: Dr. Mixon/ Dr. Luther Infectious Dz: Ms. Martinez Procedures: Bronchoscopy Dr. Luther 06/04 Data Medications: Current Inpatient Medications Medications (Trade) Dose Ordered Sig/Tasha Route Start Time Stop Time Status Last Admin Dose Admin Acetaminophen (Tylenol Tab) 650 mg Q4H PRN PO 05/28/16 23:00 06/27/16 22:59 06/04/16 22:01 650 MG Levalbuterol (Xopenex 1.25MG/ 3ML Neb) 1.25 mg Q4H PRN INH 05/28/16 23:00 06/27/16 22:59 Ondansetron HCl (Zofran Inj) 4 mg Q6H PRN IV 05/28/16 23:00 06/27/16 22:59 06/03/16 21:03 4 MG Allopurinol (Zyloprim Tab) 100 mg DAILY PO 05/29/16 09:00 06/28/16 08:59 06/04/16 09:01 100 MG Ascorbic Acid (Vitamin C Tab) 500 mg BID PO 05/29/16 09:00 06/28/16 08:59 06/04/16 21:56 500 MG Aspirin (Ecotrin Tab) 81 mg DAILY PO 05/29/16 09:00 06/28/16 08:59 06/04/16 08:58 81 MG Dipyridamole/ Aspirin (Aggrenox 200MG/ 25MG Cap) 1 cap BID PO 05/29/16 09:00 06/28/16 08:59 06/04/16 21:58 1 CAP Buspirone HCl (BusPAR TAB) 7.5 mg BID PO 05/29/16 09:00 06/28/16 08:59 06/04/16 21:55 7.5 MG Calcium/Vitamin D (Caltrate Plus Tab) 1 tab BID PO 05/29/16 09:00 06/28/16 08:59 06/04/16 21:53 1 TAB Cholecalciferol (Vitamin D Tab) 1,000 inter.unit BID PO 05/29/16 09:00 06/28/16 08:59 06/04/16 21:57 1,000 INTER.UNIT Clopidogrel Bisulfate (plAVix TAB) 75 mg DAILY PO 05/29/16 09:00 06/28/16 08:59 06/04/16 09:00 75 MG Docusate Sodium (coLACE CAP) 100 mg BID PO 05/29/16 09:00 06/28/16 08:59 06/04/16 21:58 100 MG Escitalopram Oxalate (Lexapro Tab) 20 mg QAM PO 05/29/16 09:00 06/28/16 08:59 06/04/16 08:59 20 MG Fluconazole (Diflucan Tab) 100 mg QPM PO 05/29/16 21:00 06/08/16 20:59 06/04/16 21:54 100 MG Gabapentin (Neurontin Cap) 100 mg QAM PO 05/29/16 09:00 06/28/16 08:59 06/04/16 08:59 100 MG Gabapentin (Neurontin Cap) 200 mg 1600 PO 05/29/16 16:00 06/28/16 15:59 06/04/16 16:31 200 MG Gabapentin (Neurontin Tab) 600 mg HS PO 05/29/16 21:00 06/28/16 20:59 06/04/16 21:56 600 MG Magnesium Chloride (Slow-Mag Tab) 64 mg BID PO 05/29/16 09:00 06/28/16 08:59 06/04/16 21:57 64 MG Methenamine Hippurate (Urex Tab) 1 gm BID PO 05/29/16 09:00 06/08/16 08:59 06/04/16 21:54 1 GM Pantoprazole Sodium (Protonix Tab) 40 mg BID PO 05/29/16 09:00 06/28/16 08:59 06/04/16 21:57 40 MG Phenazopyridine HCl (Pyridium Tab) 200 mg DAILY PRN PO 05/28/16 23:00 06/27/16 22:59 Miscellaneous Information (Order Awaiting Action) 1 ea QS N/A 05/29/16 08:00 06/28/16 07:59 Pentosan Polysulfate Sodium (Elmiron) 100 mg BID PO 05/29/16 09:00 06/28/16 08:59 06/04/16 21:56 100 MG Artificial Tears (Artificial Tears) 2 drops BID PRN OPB 05/29/16 04:45 06/28/16 04:44 Solifenacin (Vesicare) 10 mg HS PO 05/29/16 21:00 06/28/16 20:59 06/04/16 21:58 10 MG Thiamine HCl (Vitamin B-1 Tab) 100 mg DAILY PO 05/29/16 09:00 06/28/16 08:59 06/04/16 09:00 100 MG Artificial Tears (Lacri-Lube Oph Oint) 1 appln HS OPB 05/29/16 21:00 06/28/16 20:59 06/04/16 21:49 1 APPLN Insulin Aspart (novoLOG ASPART) SLIDING SCALE G... ACHS SC 05/29/16 06:45 06/28/16 06:59 05/31/16 12:17 1 UNITS Bisacodyl (Dulcolax Supp) 10 mg TuTh@0530 MN 05/29/16 06:15 06/28/16 06:14 05/31/16 05:30 10 MG Bisacodyl (Dulcolax Supp) 10 mg SuMoWeFrSa@2330 MN 05/30/16 23:30 06/29/16 23:29 06/04/16 21:51 10 MG Amlodipine Besylate (Norvasc Tab) 2.5 mg DAILY PO 05/29/16 09:00 06/28/16 08:59 06/04/16 09:00 2.5 MG Polyethylene 17 gm 17 gm QPM PO 05/29/16 21:00 06/28/16 20:59 06/04/16 16:58 17 GM Ertapenem/Sodium Chloride (Invanz Iv/Nss Ad-Van 50ml) 50 ml @ 120 mls/hr Q24H IV 05/29/16 12:00 06/05/16 11:59 06/04/16 11:35 120 MLS/HR Albuterol/ Ipratropium (Duoneb) 3 ml Q6R INH 05/29/16 15:00 06/28/16 14:59 06/05/16 02:13 3 ML Quetiapine Fumarate (seroQUEL TAB) 25 mg HS PO 05/29/16 22:00 06/28/16 21:59 06/04/16 21:55 25 MG Sodium Chloride (Barren Nasal Gunter) 2 sprays QID NA 05/30/16 21:00 06/29/16 20:59 06/05/16 10:22 2 SPRAYS Multi-Ingredient Ointment (Eucerin Unscented Cr) 0.25 appln BID PRN EXT 05/30/16 22:00 06/29/16 21:59 Doxycycline Hyclate (Vibramycin Cap) 100 mg BID PO 06/01/16 10:00 06/08/16 09:59 06/04/16 21:55 100 MG Quetiapine Fumarate (seroQUEL TAB) 25 mg TID PRN PO 06/01/16 11:45 07/01/16 11:44 06/01/16 18:18 25 MG I & O: 24-Hour Column 06/05/16 07:59 Intake Total 1113 ml Output Total 1325 ml Balance -212 ml Vital Signs: Date Time Temp Pulse Resp B/P Pulse Ox O2 Delivery O2 Flow Rate FiO2 06/05/16 09:58 94 20 157/101 91 Mechanical Ventilator 40 06/05/16 08:58 105 20 148/93 92 Mechanical Ventilator 40 06/05/16 08:00 Mechanical Ventilator 40 06/05/16 08:00 40 06/05/16 07:58 37.0 94 20 140/57 06/05/16 06:58 89 30 140/55 93 Mechanical Ventilator 40 06/05/16 06:00 88 20 128/56 94 Mechanical Ventilator 40 06/05/16 05:54 40 06/05/16 04:00 37.0 90 20 123/60 92 Mechanical Ventilator 30 06/05/16 04:00 30 06/05/16 04:00 Mechanical Ventilator 30 06/05/16 02:14 30 06/05/16 02:00 93 20 120/55 93 Mechanical Ventilator 30 06/05/16 00:01 36.8 91 22 144/57 95 Mechanical Ventilator 30 06/04/16 23:59 Mechanical Ventilator 30 06/04/16 23:59 30 06/04/16 23:05 30 06/04/16 22:00 98 22 171/88 94 Mechanical Ventilator 40 2/20/17 20:57 40 220/17 20:00 40 220/17 20:00 37.2 90 20 163/78 96 Mechanical Ventilator 40 06/04/17 20:00 Mechanical Ventilator 40 20/17 18:09 40 220/17 18:00 87 23 155/81 95 Mechanical Ventilator 40 06/04/17 16:00 98 Mechanical Ventilator 40 17 16:00 36.4 88 20 155/84 98 CPAP 17 16:00 40 06/04/16 14:30 40 20/17 14:00 78 20 164/83 99 220/17 13:58 79 20 160/81 99 20/17 13:56 79 20 167/79 99 20/ 13:55 78 24 99 20/17 13:54 79 22 157/77 99 20/17 13:52 77 20 166/68 99 20/17 13:50 82 25 170/81 99 06/04/ 13:48 80 22 174/81 99 20/17 13:46 81 22 171/77 98 20/17 13:45 75 20 99 20/17 13:44 78 23 173/91 99 20/17 13:42 76 20 174/82 99 20/17 13:40 78 21 168/88 99 20/17 13:38 78 20 170/96 99 /20/17 13:36 78 20 176/83 99 2/20/17 13:35 79 24 99 220/17 13:34 81 30 167/107 97 220/17 13:30 78 20 96 220/17 13:25 80 23 97 2/20/17 13:25 80 23 97 2/20/17 13:20 81 25 97 2/20/17 13:15 76 20 96 2/20/17 13:10 79 20 96 2/20/17 13:05 77 21 97 2/20/17 13:00 81 26 96 2/20/17 12:58 79 20 164/81 96 2/20/17 12:55 77 20 96 2/20/17 12:50 79 24 96 2/20/17 12:45 78 20 96 220/17 12:40 81 23 96 2/20/17 12:35 79 20 96 06/04/16 12:30 77 20 95 06/04/16 12:25 78 20 97 06/04/16 12:20 80 21 97 06/04/16 12:15 80 20 97 06/04/16 12:10 82 21 97 06/04/16 12:05 81 22 97 06/04/16 12:00 97 Mechanical Ventilator 40 06/04/16 12:00 40 06/04/16 12:00 80 20 97 06/04/16 12:00 36.8 81 20 134/67 97 Mechanical Ventilator 40 Laboratory Results: Last 24 Hours Test 06/04/16 11:26 06/04/16 16:28 06/04/16 22:14 06/05/16 05:34 Bedside Glucose 142 mg/dl 107 mg/dl 153 mg/dl Blood Gas Sample Site R Radial Bedside Blood Gas pH (LAB) 7.35 Bedside Blood Gas pCO2 (LAB) 57 mmHg Bedside Blood Gas pO2 (LAB) 63 mmHg Bedside Blood Gas HCO3 (LAB) 31 meq/L Bedside Blood Gas Total CO2 33 mEq/l Bedside Blood Gas Base Excess (LAB) 6.0 meq/L Bedside Blood Gas O2 Saturation 90.0 % Yogesh Test Pass Oxygen Delivery Device Ventilator Bedside Oxygen Rate (breaths/min) 20 Blood Gas Minute Ventilation 8.2 Bedside FiO2 30 % Blood Gas Tidal Volume 600 Blood Gas PEEP 8 Test 06/05/16 06:01 06/05/16 06:03 White Blood Count 11.53 K/uL Red Blood Count 4.02 M/uL Hemoglobin 11.3 g/dL Hematocrit 35.4 % Mean Corpuscular Volume 88.1 fL Mean Corpuscular Hemoglobin 28.1 pg Mean Corpuscular Hemoglobin Concent 31.9 g/dl Platelet Count 118 K/uL Mean Platelet Volume 8.9 fL Neutrophils (%) (Auto) 89.7 % Lymphocytes (%) (Auto) 4.4 % Monocytes (%) (Auto) 5.0 % Eosinophils (%) (Auto) 0.0 % Basophils (%) (Auto) 0.1 % Neutrophils # (Auto) 10.34 K/uL Lymphocytes # (Auto) 0.51 K/uL Monocytes # (Auto) 0.58 K/uL Eosinophils # (Auto) 0.00 K/uL Basophils # (Auto) 0.01 K/uL RDW Standard Deviation 59.6 fL RDW Coefficient of Variation 18.4 % Immature Granulocyte % (Auto) 0.8 % Immature Granulocyte # (Auto) 0.09 K/uL Sodium Level 134 mmol/L Potassium Level 4.1 mmol/L Chloride Level 95 mmol/L Carbon Dioxide Level 30 mmol/L Anion Gap 9.0 mmol/L Blood Urea Nitrogen 20 mg/dl Creatinine 0.53 mg/dl Est Creatinine Clear Calc Drug Dose 87.7 ml/min Estimated GFR () 112.3 Estimated GFR (Non- 96.9 BUN/Creatinine Ratio 37.2 Random Glucose 107 mg/dl Calcium Level 9.0 mg/dl Phosphorus Level 3.2 mg/dl Magnesium Level 2.2 mg/dl Bedside Glucose 112 mg/dl
--- NOTE | 2016-06-05 11:47 | DIAGNOSTIC IMAGING REPORT ---
CHEST ONE VIEW PORTABLE CLINICAL HISTORY: Aspiration pneumonia COMPARISON STUDY: 06/02/2016 FINDINGS: There is a left subclavian central venous catheter. There is a right subclavian A-Port catheter. There is a tracheostomy tube present. Lines and tubes remain unchanged in position. The heart is enlarged. There are persistent bilateral pulmonary airspace opacities.[ IMPRESSION: Cardiomegaly and persistent bilateral pulmonary airspace opacities, relatively similar given the differences in technique. Electronically signed by: Viktor Whitfield M.D. 06/05/2016 11:46 AM Dictated Date/Time: 06/05/2016 11:45 AM
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
--- NOTE | 2016-06-05 15:58 | Infectious Disease Progress Nt ---
Progress Note Date of Service Jun 05, 2016. Subjective Pt evaluation today including: conversation w/ patient, physical exam, chart review, lab review, review of studies, review of inpatient medication list White blood cell count today was 11.53. Her creatinine was stable at 0.53. It was noted that her bacterial culture from her bronchial washings is showing no growth currently. Fungal and acid-fast cultures are pending. The patient continues on IV ertapenem and doxycycline. She is slightly improved today. She states that her breathing is improved, but she continues to be fatigued. She has been afebrile overnight. All Other Systems: Reviewed and Negative Medications Current Inpatient Medications Medications (Trade) Dose Ordered Sig/Tasha Route Start Time Stop Time Status Last Admin Dose Admin Acetaminophen (Tylenol Tab) 650 mg Q4H PRN PO 05/28/16 23:00 06/27/16 22:59 06/04/16 22:01 650 MG Levalbuterol (Xopenex 1.25MG/ 3ML Neb) 1.25 mg Q4H PRN INH 05/28/16 23:00 06/27/16 22:59 Ondansetron HCl (Zofran Inj) 4 mg Q6H PRN IV 05/28/16 23:00 06/27/16 22:59 06/03/16 21:03 4 MG Allopurinol (Zyloprim Tab) 100 mg DAILY PO 05/29/16 09:00 06/28/16 08:59 06/05/16 11:37 100 MG Ascorbic Acid (Vitamin C Tab) 500 mg BID PO 05/29/16 09:00 06/28/16 08:59 06/05/16 11:39 500 MG Aspirin (Ecotrin Tab) 81 mg DAILY PO 05/29/16 09:00 06/28/16 08:59 06/05/16 11:39 81 MG Dipyridamole/ Aspirin (Aggrenox 200MG/ 25MG Cap) 1 cap BID PO 05/29/16 09:00 06/28/16 08:59 06/05/16 11:37 1 CAP Buspirone HCl (BusPAR TAB) 7.5 mg BID PO 05/29/16 09:00 06/28/16 08:59 06/05/16 11:40 7.5 MG Calcium/Vitamin D (Caltrate Plus Tab) 1 tab BID PO 05/29/16 09:00 06/28/16 08:59 06/05/16 11:40 1 TAB Cholecalciferol (Vitamin D Tab) 1,000 inter.unit BID PO 05/29/16 09:00 06/28/16 08:59 06/05/16 11:39 1,000 INTER.UNIT Clopidogrel Bisulfate (plAVix TAB) 75 mg DAILY PO 05/29/16 09:00 06/28/16 08:59 06/05/16 11:37 75 MG Docusate Sodium (coLACE CAP) 100 mg BID PO 05/29/16 09:00 06/28/16 08:59 06/05/16 11:37 100 MG Escitalopram Oxalate (Lexapro Tab) 20 mg QAM PO 05/29/16 09:00 06/28/16 08:59 06/05/16 11:39 20 MG Fluconazole (Diflucan Tab) 100 mg QPM PO 05/29/16 21:00 06/08/16 20:59 06/04/16 21:54 100 MG Gabapentin (Neurontin Cap) 100 mg QAM PO 05/29/16 09:00 06/28/16 08:59 06/05/16 11:39 100 MG Gabapentin (Neurontin Cap) 200 mg 1600 PO 05/29/16 16:00 06/28/16 15:59 06/04/16 16:31 200 MG Gabapentin (Neurontin Tab) 600 mg HS PO 05/29/16 21:00 06/28/16 20:59 06/04/16 21:56 600 MG Magnesium Chloride (Slow-Mag Tab) 64 mg BID PO 05/29/16 09:00 06/28/16 08:59 06/05/16 11:39 64 MG Methenamine Hippurate (Urex Tab) 1 gm BID PO 05/29/16 09:00 06/08/16 08:59 06/05/16 11:40 1 GM Pantoprazole Sodium (Protonix Tab) 40 mg BID PO 05/29/16 09:00 06/28/16 08:59 06/05/16 11:39 40 MG Phenazopyridine HCl (Pyridium Tab) 200 mg DAILY PRN PO 05/28/16 23:00 06/27/16 22:59 Miscellaneous Information (Order Awaiting Action) 1 ea QS N/A 05/29/16 08:00 06/28/16 07:59 Pentosan Polysulfate Sodium (Elmiron) 100 mg BID PO 05/29/16 09:00 06/28/16 08:59 06/05/16 11:39 100 MG Artificial Tears (Artificial Tears) 2 drops BID PRN OPB 05/29/16 04:45 06/28/16 04:44 Solifenacin (Vesicare) 10 mg HS PO 05/29/16 21:00 06/28/16 20:59 06/04/16 21:58 10 MG Thiamine HCl (Vitamin B-1 Tab) 100 mg DAILY PO 05/29/16 09:00 06/28/16 08:59 06/05/16 11:37 100 MG Artificial Tears (Lacri-Lube Oph Oint) 1 appln HS OPB 05/29/16 21:00 06/28/16 20:59 06/04/16 21:49 1 APPLN Insulin Aspart (novoLOG ASPART) SLIDING SCALE G... ACHS SC 05/29/16 06:45 06/28/16 06:59 05/31/16 12:17 1 UNITS Bisacodyl (Dulcolax Supp) 10 mg TuTh@0530 SD 05/29/16 06:15 06/28/16 06:14 05/31/16 05:30 10 MG Bisacodyl (Dulcolax Supp) 10 mg SuMoWeFrSa@2330 SD 05/30/16 23:30 06/29/16 23:29 06/04/16 21:51 10 MG Amlodipine Besylate (Norvasc Tab) 2.5 mg DAILY PO 05/29/16 09:00 06/28/16 08:59 06/05/16 11:39 2.5 MG Polyethylene (Miralax Powder Packet) 17 gm QPM PO 05/29/16 21:00 06/28/16 20:59 06/04/16 16:58 17 GM Albuterol/ Ipratropium (Duoneb) 3 ml Q6R INH 05/29/16 15:00 06/28/16 14:59 06/05/16 07:34 3 ML Quetiapine Fumarate (seroQUEL TAB) 25 mg HS PO 05/29/16 22:00 06/28/16 21:59 06/04/16 21:55 25 MG Sodium Chloride ([place] Nasal [place]) 2 sprays QID NA 05/30/16 21:00 06/29/16 20:59 06/05/16 11:41 2 SPRAYS Multi-Ingredient Ointment (Eucerin Unscented Cr) 0.25 appln BID PRN EXT 05/30/16 22:00 06/29/16 21:59 Doxycycline Hyclate (Vibramycin Cap) 100 mg BID PO 06/01/16 10:00 06/08/16 09:59 06/05/16 11:40 100 MG Quetiapine Fumarate (seroQUEL TAB) 25 mg TID PRN PO 06/01/16 11:45 07/01/16 11:44 06/01/16 18:18 25 MG Objective Vital Signs Date Time Temp Pulse Resp B/P Pulse Ox O2 Delivery O2 Flow Rate FiO2 06/05/16 14:11 86 20 174/84 96 Mechanical Ventilator 40 06/05/16 13:58 84 20 176/87 92 Mechanical Ventilator 40 06/05/16 12:00 40 06/05/16 12:00 Mechanical Ventilator 40 06/05/16 11:58 36.9 86 22 161/75 94 Mechanical Ventilator 40 06/05/16 11:40 40 06/05/16 09:58 94 20 157/101 91 Mechanical Ventilator 40 06/05/16 08:58 105 20 148/93 92 Mechanical Ventilator 40 06/05/16 08:00 Mechanical Ventilator 40 06/05/16 08:00 40 06/05/16 07:58 37.0 94 20 140/57 06/05/16 07:34 40 06/05/16 06:58 89 30 140/55 93 Mechanical Ventilator 40 06/05/16 06:00 88 20 128/56 94 Mechanical Ventilator 40 06/05/16 05:54 40 06/05/16 04:00 37.0 90 20 123/60 92 Mechanical Ventilator 30 06/05/16 04:00 30 06/05/16 04:00 Mechanical Ventilator 30 06/05/16 02:14 30 06/05/16 02:00 93 20 120/55 93 Mechanical Ventilator 30 06/05/16 00:01 36.8 91 22 144/57 95 Mechanical Ventilator 30 06/04/16 23:59 Mechanical Ventilator 30 06/04/16 23:59 30 06/04/16 23:05 30 06/04/16 22:00 98 22 171/88 94 Mechanical Ventilator 40 06/04/16 20:57 40 06/04/16 20:00 40 06/04/16 20:00 37.2 90 20 163/78 96 Mechanical Ventilator 40 06/04/16 20:00 Mechanical Ventilator 40 06/04/16 18:09 40 06/04/16 18:00 87 23 155/81 95 Mechanical Ventilator 40 06/04/16 16:00 98 Mechanical Ventilator 40 06/04/16 16:00 36.4 88 20 155/84 98 CPAP 06/04/16 16:00 40 Physical Exam General Appearance: WD/WN, no apparent distress Eyes: normal inspection, sclerae normal ENT: hearing grossly normal Neck: supple, trachea midline Respiratory/Chest: chest non-tender, no respiratory distress, no accessory muscle use, + pertinent finding (Continued mild coarse breath sounds) Cardiovascular: regular rate, rhythm Abdomen: normal bowel sounds, + distended Extremities: + pertinent finding (Quadriplegic) Neurologic/Psychiatric: alert Skin: normal color, warm/dry, no rash Laboratory Results Item Value Date Time Fungal Smear - Final Resulted 06/04/16 1400 Bronchial Washings Right Lower Lobe Acid Fast Stain Received 06/04/16 1400 Bronchial Washings Right Lower Lobe Pending Gram Stain - Final Resulted 06/04/16 1400 Bronchial Washings Right Lower Lobe Last 24 Hours Test 06/04/16 16:28 06/04/16 22:14 06/05/16 05:34 06/05/16 06:01 Bedside Glucose 107 mg/dl 153 mg/dl Blood Gas Sample Site R Radial Bedside Blood Gas pH (LAB) 7.35 Bedside Blood Gas pCO2 (LAB) 57 mmHg Bedside Blood Gas pO2 (LAB) 63 mmHg Bedside Blood Gas HCO3 (LAB) 31 meq/L Bedside Blood Gas Total CO2 33 mEq/l Bedside Blood Gas Base Excess (LAB) 6.0 meq/L Bedside Blood Gas O2 Saturation 90.0 % Yogesh Test Pass Oxygen Delivery Device Ventilator Bedside Oxygen Rate (breaths/min) 20 Blood Gas Minute Ventilation 8.2 Bedside FiO2 30 % Blood Gas Tidal Volume 600 Blood Gas PEEP 8 White Blood Count 11.53 K/uL Red Blood Count 4.02 M/uL Hemoglobin 11.3 g/dL Hematocrit 35.4 % Mean Corpuscular Volume 88.1 fL Mean Corpuscular Hemoglobin 28.1 pg Mean Corpuscular Hemoglobin Concent 31.9 g/dl Platelet Count 118 K/uL Mean Platelet Volume 8.9 fL Neutrophils (%) (Auto) 89.7 % Lymphocytes (%) (Auto) 4.4 % Monocytes (%) (Auto) 5.0 % Eosinophils (%) (Auto) 0.0 % Basophils (%) (Auto) 0.1 % Neutrophils # (Auto) 10.34 K/uL Lymphocytes # (Auto) 0.51 K/uL Monocytes # (Auto) 0.58 K/uL Eosinophils # (Auto) 0.00 K/uL Basophils # (Auto) 0.01 K/uL RDW Standard Deviation 59.6 fL RDW Coefficient of Variation 18.4 % Immature Granulocyte % (Auto) 0.8 % Immature Granulocyte # (Auto) 0.09 K/uL Sodium Level 134 mmol/L Potassium Level 4.1 mmol/L Chloride Level 95 mmol/L Carbon Dioxide Level 30 mmol/L Anion Gap 9.0 mmol/L Blood Urea Nitrogen 20 mg/dl Creatinine 0.53 mg/dl Est Creatinine Clear Calc Drug Dose 87.7 ml/min Estimated GFR () 112.3 Estimated GFR (Non- 96.9 BUN/Creatinine Ratio 37.2 Random Glucose 107 mg/dl Calcium Level 9.0 mg/dl Phosphorus Level 3.2 mg/dl Magnesium Level 2.2 mg/dl Test 06/05/16 06:03 06/05/16 11:43 Bedside Glucose 112 mg/dl 117 mg/dl Assessment and Plan (1) vent dep Status: Chronic Onset: 10/23/2010 (2) Quadriplegia Status: Chronic Onset: 10/23/2010 (3) Chronic respiratory failure Status: Chronic Onset: 10/23/2010 (4) Chronic urinary tract infection Status: Chronic Onset: 11/26/2012 (5) Hyperkalemia Status: Acute (6) Aspiration pneumonia Patient with history of recurrent UTI's, possible aspiration pneumonia, and quadriplegia who appears to be slightly improved today. Her white blood cell count was better today. She continues on IV ertapenem and doxycycline, and I feel that she would likely benefit from a few more days of therapy. Will follow pulmonary and medicine opinion in regards to timing of discharge and further needs. PROVIDER ADDENDUM: Pt. reviewed with Ms. Martinez. Agree with above assessment.
[2016-06-05] MEDS ORDERED: ERTAPENEM IV 1 GM in SODIUM CHLOR 0.9% AD-VAN 50ML 50 ML IV SCH (16:00)
[2016-06-05] MEDS: POLYETHYLENE (MIRALAX) 17 GM PACK PO SCH (17:48)
[2016-06-05] MEDS: FLUCONAZOLE 100 MG TAB PO SCH (20:27)
[2016-06-05] MEDS: GABAPENTIN 600 MG TAB PO SCH (20:30)
[2016-06-05] MEDS: ARTIFICIAL TEARS OP OINT 3.5 GM TUBE OPB SCH (20:30)
[2016-06-05] MEDS: SOLIFENACIN 10 MG TAB PO SCH (21:03)
[2016-06-05] MEDS: QUETIAPINE FUMARATE 25 MG TAB PO SCH (21:03)
[2016-06-06] VITALS (20 sets, daily range): BP systolic 131–168; BP diastolic 63–94; PULSE 79–99; TEMP 36.8–38.2; O2SAT 91–100
[2016-06-06] MEDS: ALBUT/IPRATROP 3MG/0.5MG NEB 3 ML VIAL INH SCH ×4 (02:50→19:47)
[2016-06-06 06:45] LABS: BASO % 0.1 %; BASO ABS # 0.01 K/uL (0-0.2); COMPLETE YES; EOS % 0.1 %; IG% 0.7 %; LYMPH % 3.7 %; LYMPH ABS # 0.44 K/uL (1.2-3.4); MEAN CELL VOLUME 89.7 fL (80-100); MEAN CORPUSCULAR HEMOGLOBIN 29.2 pg (25-34); MEAN CORPUSCULAR HGB CONC 32.6 g/dl (32-36); MEAN PLATELET VOLUME 10.1 fL (7.4-10.4); MONO % 4.8 %; NEUT % 90.6 %; PLATELET COUNT 140 K/uL (130-400)
[2016-06-06] MEDS: INSULIN ASPART 100 UNITS/ML 3 ML PEN SC SCH ×4 (06:45→20:50)
[2016-06-06 07:17] LABS: BUN/CREATININE RATIO 38.9 (10-20); CALCIUM 9.1 mg/dl (8.5-10.1); CREATININE 0.53 mg/dl (0.60-1.20)
[2016-06-06 07:18] LABS: PHOSPHORUS 3.6 mg/dl (2.5-4.9)
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
[2016-06-06] MEDS: ASPIRIN 81 MG ECTAB PO SCH (09:44)
[2016-06-06] MEDS: SODIUM CHLORIDE 0.65% NA SOLN 45 ML (OCEAN) SCH ×4 (09:44→20:41)
[2016-06-06] MEDS: PENTOSAN POLYSULFATE SODIUM 100 MG CAP PO SCH ×2 (09:44→21:29)
[2016-06-06] MEDS: AMLODIPINE BESYLATE 5 MG TAB PO SCH (09:44)
[2016-06-06] MEDS: ESCITALOPRAM OXALATE 20 MG TAB PO SCH (09:45)
[2016-06-06] MEDS: CALCIUM 600MG + VIT D 400 IU TAB PO SCH ×2 (09:45→21:27)
[2016-06-06] MEDS: DOCUSATE SODIUM 100 MG CAP PO SCH ×2 (09:45→21:28)
[2016-06-06] MEDS: METHENAMINE HIPPURATE 1 GM TAB PO SCH ×2 (09:45→21:32)
[2016-06-06] MEDS: ASCORBIC ACID 500 MG TAB PO SCH ×2 (09:45→21:32)
[2016-06-06] MEDS: ALLOPURINOL 100 MG TAB PO SCH (09:45)
[2016-06-06] MEDS: DIPYRIDAMOLE/ASPIRIN CAP PO SCH ×2 (09:45→21:26)
[2016-06-06] MEDS: PANTOprazole SOD 40 MG TAB PO SCH ×2 (09:45→22:29)
[2016-06-06] MEDS: CLOPIDOGREL BISULFATE 75 MG TAB PO SCH (09:45)
[2016-06-06] MEDS: THIAMINE HCL 100 MG TAB PO SCH (09:45)
[2016-06-06] MEDS: MAGNESIUM CHLORIDE 64MG DELAYED REL TAB PO SCH ×2 (09:45→21:31)
[2016-06-06] MEDS: BusPIRone 15 MG TAB PO SCH ×2 (09:46→21:27)
[2016-06-06] MEDS: GABAPENTIN 100 MG CAP PO SCH ×2 (09:46→17:39)
[2016-06-06] MEDS: DOXYCYCLINE HYCLATE 100 MG CAP PO SCH ×2 (09:46→21:32)
[2016-06-06] MEDS: CHOLECALCIFEROL 1000 INTER.UNIT TAB PO SCH ×2 (09:47→21:32)
--- NOTE | 2016-06-06 12:17 | Critical Care Progress Note ---
Critical Care Progress Note Date of Service Jun 06, 2016. Attending Dr. Aleyda Douglas Ms. Farris is a 71yo quadriplegic female who present for hyperkalemia abd remains here 2/[address] Luther has been following and wrote prescription for new vent setting on Florence's home vent. It was brought to my attention that [facility] did indeed attempt to change the settings on Florence's ventilator, but the settings were incorrect thus the pt had to be placed back on the hospital ventilator. Nursing spoke with [facility] who stated they have had to order a PEEP valve for her system. It will be overnighted and arrive tomorrow. I have spoken with Dr. Luther who has requested the new setting be 20/600/5/40% with the balloon up (5cc) to insure Florence the best chances at recovering from this respiratory illness. Otherwise Ms. Henriquez had a quiet night without acute event. She remains tired today but appears improved to me today. She denied fever, chills, chest pain, pressure, trouble breathing. She has a small headache 1-2/10 and an occasional cough. She can not feel abd pain, numbness, or tingling 2/2 spinal fracture causing her quadriplegia. She has not been eating as much today. A few bites of pudding and some sips of her Boost drink. Objective General - NAD, resting in bed on ventilator via tracheostomy Eyes -pupils equal and sluggish, EOMI, No icterus, gaze conjugate ENT - Mucosa moist, no lesions or candidiasis Neck - Supple, trachea midline, no masses or lymphadenopathy, no JVD or bruits, no air leak noted Lungs - No paradoxical chest wall movement, Coarse to auscultation bilaterally with crackles and rhonchi in right base, Diminished in Left Base. No wheezing noted. Heart - Reg rate and rhythm, No murmur, rubs, clicks, or gallops appreciated Abdomen - BS present, no bruits noted, tympanic to percussion, soft, nontender, distended, no organomegaly Extremities - No edema, pedal pulses intact Neuro - A&O X 2 Strength: Patient moves head and is trying to mouth communication; quadriplegic cannot assess extremity strength Reflexes: Areflexive CN: Pupils equal and sluggish, EOMI, no facial asymmetry, uvula/tongue midline Assessment & Plan (1) vent dep (2) Quadriplegia (3) Chronic respiratory failure (4) Chronic urinary tract infection (5) Hyperkalemia (6) Aspiration pneumonia Respiratory * Use Percussion on Bed today to help loosen secretions * Dr. Luther Following: Keep 5cc in Balloon to decrease hypoxia * Continue Respiratory Regimen * Duonebs q6h * Xopenex PRN * Provide New Script tomorrow to [facility] with Dr. Luther's suggested settings in the HPI above * Continue to monitor clinically * Abx as below in ID ID: [id number], Lone Temp of 38.2 Axillary, otherwise no medication follow-up temp oral 37.1 * Bronchial Washing Cultures Pending; Will speak with ID when resulted * ID recommends continuing Ertapenem and Doxycycline additional days pending above results of washings GI: * Passed Swallow Test, Continue Dental Soft Diet * No BM x 2 days * Continue Bowel Regimen: Colace, Miralax, and Dulcolax Suppository * Continue Stress Prophylaxis: Protonix : BUN/Cr: 21/0.53 * Monitory Daily PRP * No additional fluids at this time, will monitor limited dietary intake * Staples in place; Monitor I&O's * Continue home medications: Vesicare and Elmiron Cards: * NSR, Stable * Continue current regimen * Monitor on telemetry Neuro: At Baseline, A&O x2 * Continue home medications * Neurontin * Lexapro * Buspar * Seroquel * IV Tylenol PRN Pain/Fever Endo: Glucose: 112-157 * Monitor Accu-checks per protocol * SSI in place Heme: H&H: 11.4/35; plts 140 * Continue home medications * Aggrenox * Plavix Access: * Continue use of prehospital Chest Port CCT: 0 minutes; Level 2 inpatient billing. Not including any billable procedures. Thank you for including us in the care of this patient. Please review Dr. Aleyda Moses's addendum for further recommendations. Plastic Mould Maker Attending: I personally interviewed and examined the patient. I discussed her care with Dr. Luther as well as Chrystal Ballesteros PA-C and agree with her impression and plan. We are waiting to trial her on her home vent with the same settings she' s on now but her vent needs a part for the peep. No acute changes. Consults & Procedures Consultants: Pulmonary: Dr. Mixon/ Dr. Luther Infectious Dz: Ms. Martinez Procedures: Bronchoscopy Dr. Luther 06/04 Data Medications: Current Inpatient Medications Medications (Trade) Dose Ordered Sig/Tasha Route Start Time Stop Time Status Last Admin Dose Admin Acetaminophen (Tylenol Tab) 650 mg Q4H PRN PO 05/28/16 23:00 06/27/16 22:59 06/04/16 22:01 650 MG Levalbuterol (Xopenex 1.25MG/ 3ML Neb) 1.25 mg Q4H PRN INH 05/28/16 23:00 06/27/16 22:59 Ondansetron HCl (Zofran Inj) 4 mg Q6H PRN IV 05/28/16 23:00 06/27/16 22:59 06/03/16 21:03 4 MG Allopurinol (Zyloprim Tab) 100 mg DAILY PO 05/29/16 09:00 06/28/16 08:59 06/06/16 09:45 100 MG Ascorbic Acid (Vitamin C Tab) 500 mg BID PO 05/29/16 09:00 06/28/16 08:59 06/06/16 09:45 500 MG Aspirin (Ecotrin Tab) 81 mg DAILY PO 05/29/16 09:00 06/28/16 08:59 06/06/16 09:44 81 MG Dipyridamole/ Aspirin (Aggrenox 200MG/ 25MG Cap) 1 cap BID PO 05/29/16 09:00 06/28/16 08:59 06/06/16 09:45 1 CAP Buspirone HCl (BusPAR TAB) 7.5 mg BID PO 05/29/16 09:00 06/28/16 08:59 06/06/16 09:46 7.5 MG Calcium/Vitamin D (Caltrate Plus Tab) 1 tab BID PO 05/29/16 09:00 06/28/16 08:59 06/06/16 09:45 1 TAB Cholecalciferol (Vitamin D Tab) 1,000 inter.unit BID PO 05/29/16 09:00 06/28/16 08:59 06/06/16 09:47 1,000 INTER.UNIT Clopidogrel Bisulfate (plAVix TAB) 75 mg DAILY PO 05/29/16 09:00 06/28/16 08:59 06/06/16 09:45 75 MG Docusate Sodium (coLACE CAP) 100 mg BID PO 05/29/16 09:00 06/28/16 08:59 06/06/16 09:45 100 MG Escitalopram Oxalate (Lexapro Tab) 20 mg QAM PO 05/29/16 09:00 06/28/16 08:59 06/06/16 09:45 20 MG Fluconazole (Diflucan Tab) 100 mg QPM PO 05/29/16 21:00 06/08/16 20:59 06/05/16 20:27 100 MG Gabapentin (Neurontin Cap) 100 mg QAM PO 05/29/16 09:00 06/28/16 08:59 06/06/16 09:46 100 MG Gabapentin (Neurontin Cap) 200 mg 1600 PO 05/29/16 16:00 06/28/16 15:59 06/05/16 17:03 200 MG Gabapentin (Neurontin Tab) 600 mg HS PO 05/29/16 21:00 06/28/16 20:59 06/05/16 20:30 600 MG Magnesium Chloride (Slow-Mag Tab) 64 mg BID PO 05/29/16 09:00 06/28/16 08:59 06/06/16 09:45 64 MG Methenamine Hippurate (Urex Tab) 1 gm BID PO 05/29/16 09:00 06/08/16 08:59 06/06/16 09:45 1 GM Pantoprazole Sodium (Protonix Tab) 40 mg BID PO 05/29/16 09:00 06/28/16 08:59 06/06/16 09:45 40 MG Phenazopyridine HCl (Pyridium Tab) 200 mg DAILY PRN PO 05/28/16 23:00 06/27/16 22:59 Pentosan Polysulfate Sodium (Elmiron) 100 mg BID PO 05/29/16 09:00 06/28/16 08:59 06/06/16 09:44 100 MG Artificial Tears (Artificial Tears) 2 drops BID PRN OPB 05/29/16 04:45 06/28/16 04:44 Solifenacin (Vesicare) 10 mg HS PO 05/29/16 21:00 06/28/16 20:59 06/05/16 21:03 10 MG Thiamine HCl (Vitamin B-1 Tab) 100 mg DAILY PO 05/29/16 09:00 06/28/16 08:59 06/06/16 09:45 100 MG Artificial Tears (Lacri-Lube Oph Oint) 1 appln HS OPB 05/29/16 21:00 06/28/16 20:59 06/05/16 20:30 1 APPLN Insulin Aspart (novoLOG ASPART) SLIDING SCALE G... ACHS SC 05/29/16 06:45 06/28/16 06:59 05/31/16 12:17 1 UNITS Bisacodyl (Dulcolax Supp) 10 mg TuTh@0530 [place] 05/29/16 06:15 06/28/16 06:14 05/31/16 05:30 10 MG Bisacodyl (Dulcolax Supp) 10 mg SuMoWeFrSa@2330 [place] 05/30/16 23:30 06/29/16 23:29 06/04/16 21:51 10 MG Amlodipine Besylate (Norvasc Tab) 2.5 mg DAILY PO 05/29/16 09:00 06/28/16 08:59 06/06/16 09:44 2.5 MG Polyethylene (Miralax Powder Packet) 17 gm QPM PO 05/29/16 21:00 06/28/16 20:59 06/05/16 17:48 17 GM Albuterol/ Ipratropium (Duoneb) 3 ml Q6R INH 05/29/16 15:00 06/28/16 14:59 06/06/16 09:09 3 ML Quetiapine Fumarate (seroQUEL TAB) 25 mg HS PO 05/29/16 22:00 06/28/16 21:59 06/05/16 21:03 25 MG Sodium Chloride ([place] Nasal [place]) 2 sprays QID NA 05/30/16 21:00 06/29/16 20:59 06/06/16 12:08 2 SPRAYS Multi-Ingredient Ointment (Eucerin Unscented Cr) 0.25 appln BID PRN EXT 05/30/16 22:00 06/29/16 21:59 Doxycycline Hyclate (Vibramycin Cap) 100 mg BID PO 06/01/16 10:00 06/08/16 09:59 06/06/16 09:46 100 MG Quetiapine Fumarate 25 mg 25 mg TID PRN PO 06/01/16 11:45 07/01/16 11:44 06/01/16 18:18 25 MG Ertapenem/Sodium Chloride (Invanz Iv/Nss Ad-Van 50ml) 50 ml @ 120 mls/hr Q24H IV 06/05/16 16:00 06/15/16 15:59 06/05/16 17:02 120 MLS/HR Lifitegrast (Xiidra 5% Oph Soln) 1 drop BID OP 06/06/16 21:00 07/06/16 20:59 I & O: 24-Hour Column 06/06/16 07:59 Intake Total 900 ml Output Total 1850 ml Balance -950 ml Vital Signs: Date Time Temp Pulse Resp B/P Pulse Ox O2 Delivery O2 Flow Rate FiO2 06/06/16 12:00 91 20 131/69 91 Mechanical Ventilator 40 06/06/16 12:00 40 06/06/16 12:00 Mechanical Ventilator 40 06/06/16 11:15 37.1 06/06/16 09:59 38.2 99 20 155/82 98 Mechanical Ventilator 40 06/06/16 09:10 40 06/06/16 09:01 87 21 168/63 95 Mechanical Ventilator 40 06/06/16 08:00 40 06/06/16 08:00 Mechanical Ventilator 40 06/06/16 07:58 87 20 168/63 96 Mechanical Ventilator 40 06/06/16 06:00 40 06/06/16 05:58 86 22 149/78 92 06/06/16 05:00 92 22 95 06/06/16 04:00 40 06/06/16 04:00 36.8 06/06/16 04:00 95 Mechanical Ventilator 40 06/06/16 03:58 92 24 163/87 92 06/06/16 03:00 84 27 93 06/06/16 02:50 40 06/06/16 01:58 79 21 147/64 06/06/16 01:00 82 21 97 06/05/16 23:59 97 Mechanical Ventilator 40 06/05/16 23:59 36.8 06/05/16 23:59 40 06/05/16 23:59 85 21 149/61 91 06/05/16 23:25 40 06/05/16 22:00 87 20 143/71 94 Mechanical Ventilator 40 06/05/16 20:17 40 06/05/16 20:00 36.9 85 26 157/79 98 Mechanical Ventilator 40 06/05/16 20:00 97 Mechanical Ventilator 40 06/05/16 20:00 40 06/05/16 18:14 40 06/05/16 18:00 84 20 129/56 97 40 06/05/16 16:00 40 06/05/16 16:00 96 Mechanical Ventilator 40 06/05/16 16:00 36.9 88 20 128/60 96 Mechanical Ventilator 40 06/05/16 14:49 40 06/05/16 14:11 86 20 174/84 96 Mechanical Ventilator 40 06/05/16 13:58 84 20 176/87 92 Mechanical Ventilator 40 Laboratory Results: Last 24 Hours Test 06/05/16 16:06 06/05/16 20:36 06/06/16 05:55 Bedside Glucose 157 mg/dl 141 mg/dl White Blood Count 12.00 K/uL Red Blood Count 3.90 M/uL Hemoglobin 11.4 g/dL Hematocrit 35.0 % Mean Corpuscular Volume 89.7 fL Mean Corpuscular Hemoglobin 29.2 pg Mean Corpuscular Hemoglobin Concent 32.6 g/dl Platelet Count 140 K/uL Mean Platelet Volume 10.1 fL Neutrophils (%) (Auto) 90.6 % Lymphocytes (%) (Auto) 3.7 % Monocytes (%) (Auto) 4.8 % Eosinophils (%) (Auto) 0.1 % Basophils (%) (Auto) 0.1 % Neutrophils # (Auto) 10.89 K/uL Lymphocytes # (Auto) 0.44 K/uL Monocytes # (Auto) 0.57 K/uL Eosinophils # (Auto) 0.01 K/uL Basophils # (Auto) 0.01 K/uL RDW Standard Deviation 59.9 fL RDW Coefficient of Variation 18.2 % Immature Granulocyte % (Auto) 0.7 % Immature Granulocyte # (Auto) 0.08 K/uL Sodium Level 134 mmol/L Potassium Level 4.0 mmol/L Chloride Level 96 mmol/L Carbon Dioxide Level 30 mmol/L Anion Gap 8.0 mmol/L Blood Urea Nitrogen 21 mg/dl Creatinine 0.53 mg/dl Est Creatinine Clear Calc Drug Dose 89.2 ml/min Estimated GFR () 112.3 Estimated GFR (Non- 96.9 BUN/Creatinine Ratio 38.9 Random Glucose 121 mg/dl Calcium Level 9.1 mg/dl Phosphorus Level 3.6 mg/dl Magnesium Level 2.0 mg/dl
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
--- NOTE | 2016-06-06 15:03 | Infectious Disease Progress Nt ---
Progress Note Date of Service Jun 06, 2016. Subjective Pt evaluation today including: conversation w/ patient, conversation w/ family (daughter), physical exam, chart review, lab review, review of studies, conversation w/ salon sales consultant (Dr. Luther, Dr. Mckeon, Melvin Marques PA-C, Josselin Ballesteros PA-C), review of inpatient medication list WBC count this morning 12.00. Culture from bronchoscopy is now growing gram negative bacilli. She is currently on IV Ertapenem and Doxycycline. She also was noted to have a temperature of 38 C this morning. She states that she is feeling slightly better today. She is concerned about changing ventilators for at home and how this will change her breathing status. Repeat CXR yesterday showed cardiomegaly and persistent bilateral pulmonary airspace opacities. All Other Systems: Reviewed and Negative Medications Current Inpatient Medications Medications (Trade) Dose Ordered Sig/Tasha Route Start Time Stop Time Status Last Admin Dose Admin Acetaminophen (Tylenol Tab) 650 mg Q4H PRN PO 05/28/16 23:00 06/27/16 22:59 06/04/16 22:01 650 MG Levalbuterol (Xopenex 1.25MG/ 3ML Neb) 1.25 mg Q4H PRN INH 05/28/16 23:00 06/27/16 22:59 Ondansetron HCl (Zofran Inj) 4 mg Q6H PRN IV 05/28/16 23:00 06/27/16 22:59 06/03/16 21:03 4 MG Allopurinol (Zyloprim Tab) 100 mg DAILY PO 05/29/16 09:00 06/28/16 08:59 06/06/16 09:45 100 MG Ascorbic Acid (Vitamin C Tab) 500 mg BID PO 05/29/16 09:00 06/28/16 08:59 06/06/16 09:45 500 MG Aspirin (Ecotrin Tab) 81 mg DAILY PO 05/29/16 09:00 06/28/16 08:59 06/06/16 09:44 81 MG Dipyridamole/ Aspirin (Aggrenox 200MG/ 25MG Cap) 1 cap BID PO 05/29/16 09:00 06/28/16 08:59 06/06/16 09:45 1 CAP Buspirone HCl (BusPAR TAB) 7.5 mg BID PO 05/29/16 09:00 06/28/16 08:59 06/06/16 09:46 7.5 MG Calcium/Vitamin D (Caltrate Plus Tab) 1 tab BID PO 05/29/16 09:00 06/28/16 08:59 06/06/16 09:45 1 TAB Cholecalciferol (Vitamin D Tab) 1,000 inter.unit BID PO 05/29/16 09:00 06/28/16 08:59 06/06/16 09:47 1,000 INTER.UNIT Clopidogrel Bisulfate (plAVix TAB) 75 mg DAILY PO 05/29/16 09:00 06/28/16 08:59 06/06/16 09:45 75 MG Docusate Sodium (coLACE CAP) 100 mg BID PO 05/29/16 09:00 06/28/16 08:59 06/06/16 09:45 100 MG Escitalopram Oxalate (Lexapro Tab) 20 mg QAM PO 05/29/16 09:00 06/28/16 08:59 06/06/16 09:45 20 MG Fluconazole (Diflucan Tab) 100 mg QPM PO 05/29/16 21:00 06/08/16 20:59 06/05/16 20:27 100 MG Gabapentin (Neurontin Cap) 100 mg QAM PO 05/29/16 09:00 06/28/16 08:59 06/06/16 09:46 100 MG Gabapentin (Neurontin Cap) 200 mg 1600 PO 05/29/16 16:00 06/28/16 15:59 06/05/16 17:03 200 MG Gabapentin (Neurontin Tab) 600 mg HS PO 05/29/16 21:00 06/28/16 20:59 06/05/16 20:30 600 MG Magnesium Chloride (Slow-Mag Tab) 64 mg BID PO 05/29/16 09:00 06/28/16 08:59 06/06/16 09:45 64 MG Methenamine Hippurate (Urex Tab) 1 gm BID PO 05/29/16 09:00 06/08/16 08:59 06/06/16 09:45 1 GM Pantoprazole Sodium (Protonix Tab) 40 mg BID PO 05/29/16 09:00 06/28/16 08:59 06/06/16 09:45 40 MG Phenazopyridine HCl (Pyridium Tab) 200 mg DAILY PRN PO 05/28/16 23:00 06/27/16 22:59 Pentosan Polysulfate Sodium (Elmiron) 100 mg BID PO 05/29/16 09:00 06/28/16 08:59 06/06/16 09:44 100 MG Artificial Tears (Artificial Tears) 2 drops BID PRN OPB 05/29/16 04:45 06/28/16 04:44 Solifenacin (Vesicare) 10 mg HS PO 05/29/16 21:00 06/28/16 20:59 06/05/16 21:03 10 MG Thiamine HCl (Vitamin B-1 Tab) 100 mg DAILY PO 05/29/16 09:00 06/28/16 08:59 06/06/16 09:45 100 MG Artificial Tears (Lacri-Lube Oph Oint) 1 appln HS OPB 05/29/16 21:00 06/28/16 20:59 06/05/16 20:30 1 APPLN Insulin Aspart (novoLOG ASPART) SLIDING SCALE G... ACHS SC 05/29/16 06:45 06/28/16 06:59 05/31/16 12:17 1 UNITS Bisacodyl (Dulcolax Supp) 10 mg TuTh@0530 FL 05/29/16 06:15 06/28/16 06:14 05/31/16 05:30 10 MG Bisacodyl (Dulcolax Supp) 10 mg SuMoWeFrSa@2330 FL 05/30/16 23:30 06/29/16 23:29 06/04/16 21:51 10 MG Amlodipine Besylate (Norvasc Tab) 2.5 mg DAILY PO 05/29/16 09:00 06/28/16 08:59 06/06/16 09:44 2.5 MG Polyethylene (Miralax Powder Packet) 17 gm QPM PO 05/29/16 21:00 06/28/16 20:59 06/05/16 17:48 17 GM Albuterol/ Ipratropium (Duoneb) 3 ml Q6R INH 05/29/16 15:00 06/28/16 14:59 06/06/16 09:09 3 ML Quetiapine Fumarate (seroQUEL TAB) 25 mg HS PO 05/29/16 22:00 06/28/16 21:59 06/05/16 21:03 25 MG Sodium Chloride ([place] Nasal [place]) 2 sprays QID NA 05/30/16 21:00 06/29/16 20:59 06/06/16 12:08 2 SPRAYS Multi-Ingredient Ointment (Eucerin Unscented Cr) 0.25 appln BID PRN EXT 05/30/16 22:00 06/29/16 21:59 Doxycycline Hyclate (Vibramycin Cap) 100 mg BID PO 06/01/16 10:00 06/08/16 09:59 06/06/16 09:46 100 MG Quetiapine Fumarate (seroQUEL TAB) 25 mg TID PRN PO 06/01/16 11:45 07/01/16 11:44 06/01/16 18:18 25 MG Lifitegrast 1 drop 1 drop BID OP 06/06/16 21:00 07/06/16 20:59 Imipenem/ Cilastatin Sodium/ Dextrose (Primaxin Iv/D5 100ml) 110 ml @ 100 mls/hr Q6H IV 06/06/16 14:15 06/13/16 14:14 UNV Objective Vital Signs Date Time Temp Pulse Resp B/P Pulse Ox O2 Delivery O2 Flow Rate FiO2 06/06/16 13:59 88 22 144/75 98 Mechanical Ventilator 40 06/06/16 12:00 91 20 131/69 91 Mechanical Ventilator 40 06/06/16 12:00 40 06/06/16 12:00 Mechanical Ventilator 40 06/06/16 11:15 37.1 06/06/16 09:59 38.2 99 20 155/82 98 Mechanical Ventilator 40 06/06/16 09:10 40 06/06/16 09:01 87 21 168/63 95 Mechanical Ventilator 40 06/06/16 08:00 40 06/06/16 08:00 Mechanical Ventilator 40 06/06/16 07:58 87 20 168/63 96 Mechanical Ventilator 40 06/06/16 06:00 40 06/06/16 05:58 86 22 149/78 92 06/06/16 05:00 92 22 95 06/06/16 04:00 40 06/06/16 04:00 36.8 06/06/16 04:00 95 Mechanical Ventilator 40 06/06/16 03:58 92 24 163/87 92 06/06/16 03:00 84 27 93 06/06/16 02:50 40 06/06/16 01:58 79 21 147/64 06/06/16 01:00 82 21 97 06/05/16 23:59 97 Mechanical Ventilator 40 06/05/16 23:59 36.8 06/05/16 23:59 40 06/05/16 23:59 85 21 149/61 91 06/05/16 23:25 40 06/05/16 22:00 87 20 143/71 94 Mechanical Ventilator 40 06/05/16 20:17 40 06/05/16 20:00 36.9 85 26 157/79 98 Mechanical Ventilator 40 06/05/16 20:00 97 Mechanical Ventilator 40 06/05/16 20:00 40 06/05/16 18:14 40 06/05/16 18:00 84 20 129/56 97 40 06/05/16 16:00 40 06/05/16 16:00 96 Mechanical Ventilator 40 06/05/16 16:00 36.9 88 20 128/60 96 Mechanical Ventilator 40 Physical Exam General Appearance: WD/WN Eyes: normal inspection, sclerae normal ENT: hearing grossly normal Neck: supple, + pertinent finding (tracheostomy) Respiratory/Chest: chest non-tender, + pertinent finding (ventilated, continued course breath sounds throughout) Cardiovascular: regular rate, rhythm Extremities: + pertinent finding (quadriplegic) Neurologic/Psychiatric: alert, + depressed affect Skin: normal color, warm/dry, no rash Laboratory Results [~ rep ct add3]] CHEST ONE VIEW PORTABLE CLINICAL HISTORY: Aspiration pneumonia COMPARISON STUDY: 06/02/2016 FINDINGS: There is a left subclavian central venous catheter. There is a right subclavian A-Port catheter. There is a tracheostomy tube present. Lines and tubes remain unchanged in position. The heart is enlarged. There are persistent bilateral pulmonary airspace opacities.[ IMPRESSION: Cardiomegaly and persistent bilateral pulmonary airspace opacities, relatively similar given the differences in technique. RUN DATE: 06/06/16 [facility] LAB PAGE 1 RUN TIME: 1337 Specimen Inquiry PATIENT: CARY WILLSON LOC: YUSEF U # : [id number] AGE/SX: 71/F ROOM: [facility] REG : 05/28/[address]: Dirk Mckeon M : 1945 BED: 1 DIS : STATUS: ADM IN TLOC: SPEC #: [id number] BRYCE: 06/04/16-1399 STATUS: RES REQ #: [id number] RECD: 06/04/16-[address] [facility] [address]: Dirk Luther MD SOURCE: [facility] WASH ENTR: 06/04/16-[address] [facility] [address]: Darci Corcoran MD SPDES: RT LOW LOB Dirk Mckeon M.D. Cable, Joseph A., DO Kedem, Roy ., MD Shippert, Brian W. , D.OSaba ORDERED: [facility] CUL/SM Procedure Result Verified Site GRAM STAIN Final 06/05/16-1032 RESULT MANY POLYS RARE YEAST BRONCH WASH CULTURE Preliminary 06/06/16-1336 Organism 1 GRAM NEGATIVE BACILLI QUANITY MODERATE SENS SENSITIVITY TO FOLLOW NORMAL SUSI SCANT NORMAL SUSI Item Value Date Time Fungal Smear - Final Resulted 06/04/16 1400 Bronchial Washings Right Lower Lobe Acid Fast Stain - Final Resulted 06/04/16 1400 Bronchial Washings Right Lower Lobe Gram Stain - Final Resulted 06/04/16 1400 Bronchial Washings Right Lower Lobe Last 24 Hours Test 06/05/16 16:06 06/05/16 20:36 06/06/16 05:55 Bedside Glucose 157 mg/dl 141 mg/dl White Blood Count 12.00 K/uL Red Blood Count 3.90 M/uL Hemoglobin 11.4 g/dL Hematocrit 35.0 % Mean Corpuscular Volume 89.7 fL Mean Corpuscular Hemoglobin 29.2 pg Mean Corpuscular Hemoglobin Concent 32.6 g/dl Platelet Count 140 K/uL Mean Platelet Volume 10.1 fL Neutrophils (%) (Auto) 90.6 % Lymphocytes (%) (Auto) 3.7 % Monocytes (%) (Auto) 4.8 % Eosinophils (%) (Auto) 0.1 % Basophils (%) (Auto) 0.1 % Neutrophils # (Auto) 10.89 K/uL Lymphocytes # (Auto) 0.44 K/uL Monocytes # (Auto) 0.57 K/uL Eosinophils # (Auto) 0.01 K/uL Basophils # (Auto) 0.01 K/uL RDW Standard Deviation 59.9 fL RDW Coefficient of Variation 18.2 % Immature Granulocyte % (Auto) 0.7 % Immature Granulocyte # (Auto) 0.08 K/uL Sodium Level 134 mmol/L Potassium Level 4.0 mmol/L Chloride Level 96 mmol/L Carbon Dioxide Level 30 mmol/L Anion Gap 8.0 mmol/L Blood Urea Nitrogen 21 mg/dl Creatinine 0.53 mg/dl Est Creatinine Clear Calc Drug Dose 89.2 ml/min Estimated GFR () 112.3 Estimated GFR (Non- 96.9 BUN/Creatinine Ratio 38.9 Random Glucose 121 mg/dl Calcium Level 9.1 mg/dl Phosphorus Level 3.6 mg/dl Magnesium Level 2.0 mg/dl Assessment and Plan (1) vent dep Status: Chronic Onset: 10/23/2010 (2) Quadriplegia Status: Chronic Onset: 10/23/2010 (3) Chronic respiratory failure Status: Chronic Onset: 10/23/2010 (4) Chronic urinary tract infection Status: Chronic Onset: 11/26/2012 (5) Hyperkalemia Status: Acute (6) Aspiration pneumonia Patient with history of recurrent UTI's, possible aspiration pneumonia, and quadriplegia who appears to be slightly improved today but is now growing GNB from her bronchoscopy culture. She is currently on IV Ertapenem and Doxycycline. Will broaden from Ertapenem to Imipenem to cover possible Pseudomonas until culture is available. We will continue to follow. Plan: 1. D/C Ertapenem 2. Start Imipenem PROVIDER ADDENDUM: Patient reviewed with Ms. Martinez. Agree with above assessment.
[2016-06-06 15:04] LABS: ISTAT ALLEN TEST Pass; ISTAT ARTERIAL BLOOD GAS HCO3 29 meq/L (19-24); ISTAT ARTERIAL BLOOD GAS PCO2 53 mmHg (35-46); ISTAT ARTERIAL BLOOD GAS PO2 78 mmHg (80-95); ISTAT ARTERIAL BLOOD GAS pH 7.35 (7.35-7.45); ISTAT CARBON DIOXIDE 31 mEq/l (24-31); ISTAT DELIVERY SYSTEM Ventilator; ISTAT FIO2 40 %; ISTAT PEEP 8; ISTAT RATE 20; ISTAT SITE R Radial; VE 10.8; Vt 500
[2016-06-06] MEDS: IMIPENEM/CILASTATIN IV 500 MG in DEXTROSE 5% 100ML 100 ML IV SCH ×2 (16:36→22:22)
[2016-06-06] MEDS: LIFITEGRAST 5% OP SCH (20:42)
[2016-06-06] MEDS: ARTIFICIAL TEARS OP OINT 3.5 GM TUBE OPB SCH (20:42)
[2016-06-06] MEDS: SOLIFENACIN 10 MG TAB PO SCH (20:45)
[2016-06-06] MEDS ORDERED: LIFITEGRAST 5% OP SCH (21:00)
[2016-06-06] MEDS: FLUCONAZOLE 100 MG TAB PO SCH (21:28)
[2016-06-06] MEDS: GABAPENTIN 600 MG TAB PO SCH (21:29)
[2016-06-06] MEDS: QUETIAPINE FUMARATE 25 MG TAB PO SCH (21:31)
[2016-06-06] MEDS: POLYETHYLENE (MIRALAX) 17 GM PACK PO SCH (21:56)
[2016-06-06] MEDS: BISACODYL 10 MG SUPP PR SCH (22:29)
[2016-06-07] VITALS (29 sets, daily range): BP systolic 134–165; BP diastolic 61–103; PULSE 80–102; TEMP 36.7–39.1; O2SAT 97–100
[2016-06-07] MEDS: ALBUT/IPRATROP 3MG/0.5MG NEB 3 ML VIAL INH SCH ×4 (02:16→21:25)
[2016-06-07] MEDS: IMIPENEM/CILASTATIN IV 500 MG in DEXTROSE 5% 100ML 100 ML IV SCH ×4 (04:07→23:46)
[2016-06-07] MEDS: BISACODYL 10 MG SUPP PR SCH (05:30)
[2016-06-07] MEDS: INSULIN ASPART 100 UNITS/ML 3 ML PEN SC SCH ×4 (06:45→21:00)
[2016-06-07] MEDS: PANTOprazole SOD 40 MG TAB PO SCH ×2 (08:06→21:06)
[2016-06-07] MEDS: CHOLECALCIFEROL 1000 INTER.UNIT TAB PO SCH ×2 (08:06→21:05)
[2016-06-07] MEDS: CLOPIDOGREL BISULFATE 75 MG TAB PO SCH (08:06)
[2016-06-07] MEDS: ASCORBIC ACID 500 MG TAB PO SCH ×2 (08:06→21:00)
[2016-06-07] MEDS: GABAPENTIN 100 MG CAP PO SCH ×2 (08:07→16:00)
[2016-06-07] MEDS: ALLOPURINOL 100 MG TAB PO SCH (08:07)
[2016-06-07] MEDS: ASPIRIN 81 MG ECTAB PO SCH (08:07)
[2016-06-07] MEDS: DOXYCYCLINE HYCLATE 100 MG CAP PO SCH ×2 (08:08→21:00)
[2016-06-07] MEDS: THIAMINE HCL 100 MG TAB PO SCH (08:08)
[2016-06-07] MEDS: CALCIUM 600MG + VIT D 400 IU TAB PO SCH ×2 (08:09→21:01)
[2016-06-07] MEDS: DIPYRIDAMOLE/ASPIRIN CAP PO SCH ×2 (08:09→21:03)
[2016-06-07] MEDS: AMLODIPINE BESYLATE 5 MG TAB PO SCH (08:10)
[2016-06-07] MEDS: ESCITALOPRAM OXALATE 20 MG TAB PO SCH (08:10)
[2016-06-07] MEDS: DOCUSATE SODIUM 100 MG CAP PO SCH ×2 (08:13→21:00)
[2016-06-07] MEDS: PENTOSAN POLYSULFATE SODIUM 100 MG CAP PO SCH ×2 (08:13→20:59)
--- NOTE | 2016-06-07 08:14 | DIAGNOSTIC IMAGING REPORT ---
CHEST ONE VIEW PORTABLE CLINICAL HISTORY: Pneumonia. COMPARISON STUDY: Chest radiograph June 05, 2016. FINDINGS: Tracheostomy tube and bilateral subclavian central lines remain in place. Mild cardiomegaly is unchanged. There is no pneumothorax. Extensive bilateral airspace opacities persist. The appearance is similar to exam of June 05, 2016. IMPRESSION: No change in extensive bilateral airspace opacities which favor pneumonia Electronically signed by: Diallo Parker M.D. 06/07/2016 8:13 AM Dictated Date/Time: 06/07/2016 8:11 AM
[2016-06-07] MEDS: LIFITEGRAST 5% OP SCH ×2 (08:15→20:59)
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
[2016-06-07] MEDS: SODIUM CHLORIDE 0.65% NA SOLN 45 ML (OCEAN) SCH ×4 (08:16→20:58)
[2016-06-07] MEDS: ACETAMINOPHEN 325 MG TAB PO PRN (08:20)
[2016-06-07 08:40] LABS: BASO % 0.1 %; BASO ABS # 0.01 K/uL (0-0.2); COMPLETE YES; EOS % 0.1 %; HEMATOCRIT 34.2 % (37-47); IG% 0.6 %; LYMPH % 5.7 %; LYMPH ABS # 0.74 K/uL (1.2-3.4); MEAN CELL VOLUME 87.9 fL (80-100); MEAN CORPUSCULAR HGB CONC 31.9 g/dl (32-36); MEAN PLATELET VOLUME 9.4 fL (7.4-10.4); MONO % 5.6 %; NEUT % 87.9 %; PLATELET COUNT 166 K/uL (130-400); RED BLOOD COUNT 3.89 M/uL (4.2-5.4); WHITE BLOOD COUNT 12.91 K/uL (4.8-10.8)
[2016-06-07] MEDS: MAGNESIUM CHLORIDE 64MG DELAYED REL TAB PO SCH ×2 (09:00→21:00)
[2016-06-07] MEDS ORDERED: ASPIRIN 81 MG CHEW PO SCH (09:00)
[2016-06-07] MEDS: METHENAMINE HIPPURATE 1 GM TAB PO SCH ×2 (09:00→21:02)
[2016-06-07] MEDS: BusPIRone 15 MG TAB PO SCH ×2 (09:00→21:01)
[2016-06-07 09:05] LABS: BUN/CREATININE RATIO 34.2 (10-20); CALCIUM 8.8 mg/dl (8.5-10.1); CREATININE 0.59 mg/dl (0.60-1.20); MAGNESIUM 1.9 mg/dl (1.8-2.4); POTASSIUM 3.9 mmol/L (3.5-5.1)
[2016-06-07 09:14] LABS: PHOSPHORUS 2.7 mg/dl (2.5-4.9)
--- NOTE | 2016-06-07 11:37 | Infectious Disease Progress Nt ---
Progress Note Date of Service Jun 07, 2016. Subjective Pt evaluation today including: conversation w/ patient, physical exam, chart review, lab review, review of studies, conversation w/ fundraising consultant (Dr. Mckeon ), review of inpatient medication list Patient's bronchial washing continues to show gram negative bacilli pending identification and sensitivities. AFB culture and fungal cultuers are also pending. Repeat CXR this morning continues to show extensive bilateral airspace opacities which favor pneumonia. This image was viewed as well. The patient shakes her head yes that she is feeling slightly better but she is still on the hospital ventilator. WBC count was increased slightly to 12.91 this morning. All Other Systems: Reviewed and Negative Medications Current Inpatient Medications Medications (Trade) Dose Ordered Sig/Tasha Route Start Time Stop Time Status Last Admin Dose Admin Acetaminophen (Tylenol Tab) 650 mg Q4H PRN PO 05/28/16 23:00 06/27/16 22:59 06/07/16 08:20 650 MG Levalbuterol (Xopenex 1.25MG/ 3ML Neb) 1.25 mg Q4H PRN INH 05/28/16 23:00 06/27/16 22:59 Ondansetron HCl (Zofran Inj) 4 mg Q6H PRN IV 05/28/16 23:00 06/27/16 22:59 06/03/16 21:03 4 MG Allopurinol (Zyloprim Tab) 100 mg DAILY PO 05/29/16 09:00 06/28/16 08:59 06/07/16 08:07 100 MG Ascorbic Acid (Vitamin C Tab) 500 mg BID PO 05/29/16 09:00 06/28/16 08:59 06/07/16 08:06 500 MG Aspirin (Ecotrin Tab) 81 mg DAILY PO 05/29/16 09:00 06/28/16 08:59 06/07/16 08:07 81 MG Dipyridamole/ Aspirin (Aggrenox 200MG/ 25MG Cap) 1 cap BID PO 05/29/16 09:00 06/28/16 08:59 06/07/16 08:09 1 CAP Buspirone HCl (BusPAR TAB) 7.5 mg BID PO 05/29/16 09:00 06/28/16 08:59 06/06/16 21:27 7.5 MG Calcium/Vitamin D (Caltrate Plus Tab) 1 tab BID PO 05/29/16 09:00 06/28/16 08:59 06/07/16 08:09 1 TAB Cholecalciferol (Vitamin D Tab) 1,000 inter.unit BID PO 05/29/16 09:00 06/28/16 08:59 06/07/16 08:06 1,000 INTER.UNIT Clopidogrel Bisulfate (plAVix TAB) 75 mg DAILY PO 05/29/16 09:00 06/28/16 08:59 06/07/16 08:06 75 MG Docusate Sodium (coLACE CAP) 100 mg BID PO 05/29/16 09:00 06/28/16 08:59 06/07/16 08:13 100 MG Escitalopram Oxalate (Lexapro Tab) 20 mg QAM PO 05/29/16 09:00 06/28/16 08:59 06/07/16 08:10 20 MG Fluconazole (Diflucan Tab) 100 mg QPM PO 05/29/16 21:00 06/08/16 20:59 06/06/16 21:28 100 MG Gabapentin (Neurontin Cap) 100 mg QAM PO 05/29/16 09:00 06/28/16 08:59 06/07/16 08:07 100 MG Gabapentin (Neurontin Cap) 200 mg 1600 PO 05/29/16 16:00 06/28/16 15:59 06/06/16 17:39 200 MG Gabapentin (Neurontin Tab) 600 mg HS PO 05/29/16 21:00 06/28/16 20:59 06/06/16 21:29 600 MG Magnesium Chloride (Slow-Mag Tab) 64 mg BID PO 05/29/16 09:00 06/28/16 08:59 06/06/16 21:31 64 MG Methenamine Hippurate (Urex Tab) 1 gm BID PO 05/29/16 09:00 06/08/16 08:59 06/06/16 21:32 1 GM Pantoprazole Sodium (Protonix Tab) 40 mg BID PO 05/29/16 09:00 06/28/16 08:59 06/07/16 08:06 40 MG Phenazopyridine HCl (Pyridium Tab) 200 mg DAILY PRN PO 05/28/16 23:00 3/15/17 22:59 Pentosan Polysulfate Sodium (Elmiron) 100 mg BID PO 05/29/16 09:00 06/28/16 08:59 06/07/16 08:13 100 MG Artificial Tears (Artificial Tears) 2 drops BID PRN OPB 05/29/16 04:45 06/28/16 04:44 Solifenacin (Vesicare) 10 mg HS PO 05/29/16 21:00 06/28/16 20:59 06/06/16 20:45 10 MG Thiamine HCl (Vitamin B-1 Tab) 100 mg DAILY PO 05/29/16 09:00 06/28/16 08:59 06/07/16 08:08 100 MG Artificial Tears (Lacri-Lube Oph Oint) 1 appln HS OPB 05/29/16 21:00 06/28/16 20:59 06/06/16 20:42 1 APPLN Insulin Aspart (novoLOG ASPART) SLIDING SCALE G... ACHS SC 05/29/16 06:45 06/28/16 06:59 05/31/16 12:17 1 UNITS Bisacodyl (Dulcolax Supp) 10 mg TuTh@0530 [place] 05/29/16 06:15 06/28/16 06:14 05/31/16 05:30 10 MG Bisacodyl (Dulcolax Supp) 10 mg SuMoWeFrSa@2330 GA 05/30/16 23:30 06/29/16 23:29 06/06/16 22:29 10 MG Amlodipine Besylate (Norvasc Tab) 2.5 mg DAILY PO 05/29/16 09:00 06/28/16 08:59 06/07/16 08:10 2.5 MG Polyethylene (Miralax Powder Packet) 17 gm QPM PO 05/29/16 21:00 06/28/16 20:59 06/06/16 21:56 17 GM Albuterol/ Ipratropium (Duoneb) 3 ml Q6R INH 05/29/16 15:00 06/28/16 14:59 06/07/16 07:40 3 ML Quetiapine Fumarate (seroQUEL TAB) 25 mg HS PO 05/29/16 22:00 06/28/16 21:59 2/22/17 21:31 25 MG Sodium Chloride ([facility] Nasal [place]) 2 sprays QID NA 05/30/16 21:00 06/29/16 20:59 06/07/16 08:16 2 SPRAYS Multi-Ingredient Ointment (Eucerin Unscented Cr) 0.25 appln BID PRN EXT 05/30/16 22:00 06/29/16 21:59 Doxycycline Hyclate (Vibramycin Cap) 100 mg BID PO 06/01/16 10:00 06/08/16 09:59 06/07/16 08:08 100 MG Quetiapine Fumarate (seroQUEL TAB) 25 mg TID PRN PO 06/01/16 11:45 07/01/16 11:44 06/01/16 18:18 25 MG Lifitegrast 1 drop 1 drop BID OP 06/06/16 21:00 07/06/16 20:59 06/07/16 08:15 1 DROP Imipenem/ Cilastatin Sodium/ Dextrose (Primaxin Iv/D5 100ml) 110 ml @ 100 mls/hr Q6H IV 06/06/16 16:30 06/13/16 14:14 06/07/16 11:14 100 MLS/HR Objective Vital Signs Date Time Temp Pulse Resp B/P Pulse Ox O2 Delivery O2 Flow Rate FiO2 06/07/16 09:00 102 20 98 06/07/16 08:00 99 20 98 06/07/16 07:59 39.1 100 20 156/77 98 Mechanical Ventilator 40 06/07/16 07:45 40 06/07/16 07:45 98 Mechanical Ventilator 40 06/07/16 07:40 40 06/07/16 07:00 97 20 99 06/07/16 05:59 97 24 134/61 98 06/07/16 05:35 40 06/07/16 04:00 37.0 06/07/16 04:00 40 06/07/16 04:00 97 Mechanical Ventilator 40 06/07/16 03:59 96 22 142/77 98 06/07/16 02:16 40 06/07/16 01:59 89 23 156/68 100 06/07/16 00:03 102 28 147/103 100 06/07/16 00:01 37.0 06/06/16 23:59 100 Mechanical Ventilator 40 06/06/16 23:59 40 06/06/16 23:09 91 22 142/67 100 06/06/16 22:50 40 06/06/16 20:53 92 19 155/94 98 06/06/16 20:10 88 20 155/94 98 06/06/16 20:00 36.9 06/06/16 20:00 98 Mechanical Ventilator 40 06/06/16 20:00 40 06/06/16 19:47 40 06/06/16 18:10 40 06/06/16 18:00 37.1 91 20 168/78 98 Mechanical Ventilator 40 06/06/16 16:00 37.1 92 20 154/72 99 Mechanical Ventilator 40 06/06/16 16:00 Mechanical Ventilator 40 06/06/16 16:00 40 06/06/16 15:19 40 06/06/16 13:59 88 22 144/75 98 Mechanical Ventilator 40 06/06/16 12:00 91 20 131/69 91 Mechanical Ventilator 40 06/06/16 12:00 40 06/06/16 12:00 40 06/06/16 12:00 Mechanical Ventilator 40 Physical Exam General Appearance: no apparent distress Eyes: normal inspection, sclerae normal ENT: hearing grossly normal Neck: + pertinent finding (tracheostomy) Respiratory/Chest: chest non-tender, + pertinent finding (continued moderate coarse breath sounds throughout lungs. Continues on hospital vent) Cardiovascular: + tachycardia Abdomen: normal bowel sounds, + distended Extremities: + pertinent finding (quadriplegic) Neurologic/Psychiatric: + pertinent finding (lethargic) Skin: normal color Laboratory Results CHEST ONE VIEW PORTABLE CLINICAL HISTORY: Pneumonia. COMPARISON STUDY: Chest radiograph June 05, 2016. FINDINGS: Tracheostomy tube and bilateral subclavian central lines remain in place. Mild cardiomegaly is unchanged. There is no pneumothorax. Extensive bilateral airspace opacities persist. The appearance is similar to exam of June 05, 2016. IMPRESSION: No change in extensive bilateral airspace opacities which favor pneumonia RUN DATE: 06/06/16 [facility] LAB PAGE 1 RUN TIME: 1337 Specimen Inquiry PATIENT: CARY WILLSON LOC: YUSEF U # : [id number] AGE/SX: 71/F ROOM: E112 REG : 05/28/[address]: Dirk Mckeon M : 1945 BED: 1 DIS : STATUS: ADM IN TLOC: SPEC #: [id number] BRYCE: 06/04/16 STATUS: RES REQ #: [id number] RECD: 06/04/[address] [facility] [address]: Dirk Luther MD SOURCE: [facility] WASH ENTR: 06/04/[address] [facility] [address]: Darci Corcoran MD SPDESC: RT LOW LOB Dirk Mckeon M.D. Cable, Joseph A., Stanton Atkinson MD Shippert, Brian W. , D.OSaba ORDERED: [facility] CUL/SM Procedure Result Verified Site GRAM STAIN Final 06/05/16-1033 RESULT MANY POLYS RARE YEAST BRONCH WASH CULTURE Preliminary 06/06/16-1337 Organism 1 GRAM NEGATIVE BACILLI QUANITY MODERATE SENS SENSITIVITY TO FOLLOW NORMAL SUSI SCANT NORMAL SUSI Item Value Date Time Fungal Smear - Final Resulted 06/04/16 1400 Bronchial Washings Right Lower Lobe Acid Fast Stain - Final Resulted 06/04/16 1400 Bronchial Washings Right Lower Lobe Gram Stain - Final Resulted 06/04/16 1400 Bronchial Washings Right Lower Lobe Last 24 Hours Test 06/06/16 16:03 06/06/16 20:48 06/07/16 08:12 Bedside Glucose 138 mg/dl 159 mg/dl White Blood Count 12.91 K/uL Red Blood Count 3.89 M/uL Hemoglobin 10.9 g/dL Hematocrit 34.2 % Mean Corpuscular Volume 87.9 fL Mean Corpuscular Hemoglobin 28.0 pg Mean Corpuscular Hemoglobin Concent 31.9 g/dl Platelet Count 166 K/uL Mean Platelet Volume 9.4 fL Neutrophils (%) (Auto) 87.9 % Lymphocytes (%) (Auto) 5.7 % Monocytes (%) (Auto) 5.6 % Eosinophils (%) (Auto) 0.1 % Basophils (%) (Auto) 0.1 % Neutrophils # (Auto) 11.35 K/uL Lymphocytes # (Auto) 0.74 K/uL Monocytes # (Auto) 0.72 K/uL Eosinophils # (Auto) 0.01 K/uL Basophils # (Auto) 0.01 K/uL RDW Standard Deviation 57.3 fL RDW Coefficient of Variation 17.8 % Immature Granulocyte % (Auto) 0.6 % Immature Granulocyte # (Auto) 0.08 K/uL Sodium Level 130 mmol/L Potassium Level 3.9 mmol/L Chloride Level 94 mmol/L Carbon Dioxide Level 28 mmol/L Anion Gap 8.0 mmol/L Blood Urea Nitrogen 20 mg/dl Creatinine 0.59 mg/dl Est Creatinine Clear Calc Drug Dose 79.6 ml/min Estimated GFR () 108.4 Estimated GFR (Non- 93.5 BUN/Creatinine Ratio 34.2 Random Glucose 144 mg/dl Calcium Level 8.8 mg/dl Phosphorus Level 2.7 mg/dl Magnesium Level 1.9 mg/dl Albumin 1.6 gm/dl Assessment and Plan (1) vent dep Status: Chronic Onset: 10/23/2010 (2) Quadriplegia Status: Chronic Onset: 10/23/2010 (3) Chronic respiratory failure Status: Chronic Onset: 10/23/2010 (4) Chronic urinary tract infection Status: Chronic Onset: 11/26/2012 (5) Hyperkalemia Status: Acute (6) Aspiration pneumonia Patient with history of recurrent UTI's, possible aspiration pneumonia, and quadriplegia who appears to be stable but not necessarily improved today and continues to grow GNB from her bronchoscopy culture. She is currently on IV Imipenem to cover possible Pseudomonas until culture is available. We will continue to follow. Plan: 1. Continue Imipenem PROVIDER ADDENDUM: Patient reviewed with Ms. Martinez. Agree with above assessment. Worry about possible carbapenemase- producing Gram-negative. Await final identification and sensitivities.
[2016-06-07 13:39] LABS: ISTAT ARTERIAL BLOOD GAS HCO3 28 meq/L (19-24); ISTAT ARTERIAL BLOOD GAS PCO2 46 mmHg (35-46); ISTAT ARTERIAL BLOOD GAS PO2 85 mmHg (80-95); ISTAT CARBON DIOXIDE 29 mEq/l (24-31); ISTAT DELIVERY SYSTEM Ventilator; ISTAT FIO2 40 %; ISTAT PEEP 5; ISTAT RATE 20; ISTAT SITE L Radial; VE 10.1; Vt 500
--- NOTE | 2016-06-07 16:47 | DIAGNOSTIC IMAGING REPORT ---
KUB CLINICAL HISTORY: tube placement COMPARISON STUDY: 04/01/2014 FINDINGS: A single portable abdomen centered on the diaphragms is provided for interpretation. There is a feeding tube with its tip positioned within the stomach. There is a right-sided A-Port catheter. There is a left subclavian central venous catheter. There is a tracheostomy tube present. There are bilateral pulmonary airspace opacities. IMPRESSION: The recently placed feeding tube is positioned within the stomach. Electronically signed by: Viktor Whitfield M.D. 06/07/2016 4:46 PM Dictated Date/Time: 06/07/2016 4:45 PM
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
[2016-06-07] MEDS ORDERED: NURSING VERBAL MED ORDER ONE (18:30)
[2016-06-07] MEDS: TUBE FEEDING WATER FLUSH NG SCH (18:58)
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
[2016-06-07] MEDS: ARTIFICIAL TEARS OP OINT 3.5 GM TUBE OPB SCH (20:59)
[2016-06-07] MEDS: FLUCONAZOLE 100 MG TAB PO SCH (21:00)
[2016-06-07] MEDS: GABAPENTIN 600 MG TAB PO SCH (21:02)
[2016-06-07] MEDS: POLYETHYLENE (MIRALAX) 17 GM PACK PO SCH (21:03)
[2016-06-07] MEDS: SOLIFENACIN 10 MG TAB PO SCH (21:04)
[2016-06-07] MEDS: QUETIAPINE FUMARATE 25 MG TAB PO SCH (23:46)
[2016-06-08] VITALS (20 sets, daily range): BP systolic 121–179; BP diastolic 61–95; PULSE 76–95; TEMP 36.5–37.4; O2SAT 91–100
[2016-06-08] MEDS: TUBE FEEDING WATER FLUSH NG SCH ×6 (00:20→23:49)
[2016-06-08] MEDS: ALBUT/IPRATROP 3MG/0.5MG NEB 3 ML VIAL INH SCH ×4 (03:18→20:00)
[2016-06-08] MEDS: IMIPENEM/CILASTATIN IV 500 MG in DEXTROSE 5% 100ML 100 ML IV SCH ×4 (04:51→22:17)
[2016-06-08 06:19] LABS: BASO % 0.1 %; BASO ABS # 0.01 K/uL (0-0.2); COMPLETE YES; EOS % 0.2 %; IG% 0.6 %; LYMPH % 3.8 %; LYMPH ABS # 0.48 K/uL (1.2-3.4); MEAN CELL VOLUME 90.4 fL (80-100); MEAN CORPUSCULAR HEMOGLOBIN 28.7 pg (25-34); MEAN CORPUSCULAR HGB CONC 31.8 g/dl (32-36); MEAN PLATELET VOLUME 10.1 fL (7.4-10.4); MONO % 5.6 %; NEUT % 89.7 %; PLATELET COUNT 205 K/uL (130-400); RED BLOOD COUNT 3.76 M/uL (4.2-5.4); WHITE BLOOD COUNT 12.49 K/uL (4.8-10.8)
[2016-06-08] MEDS: INSULIN ASPART 100 UNITS/ML 3 ML PEN SC SCH ×4 (06:22→21:07)
[2016-06-08 06:55] LABS: BUN/CREATININE RATIO 45.5 (10-20); CALCIUM 8.7 mg/dl (8.5-10.1); CREATININE 0.46 mg/dl (0.60-1.20); MAGNESIUM 1.8 mg/dl (1.8-2.4); PHOSPHORUS 2.8 mg/dl (2.5-4.9); POTASSIUM 3.7 mmol/L (3.5-5.1)
[2016-06-08] MEDS: PENTOSAN POLYSULFATE SODIUM 100 MG CAP PO SCH ×2 (08:04→21:05)
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
[2016-06-08] MEDS: GABAPENTIN 100 MG CAP PO SCH (08:05)
[2016-06-08] MEDS: ALLOPURINOL 100 MG TAB PO SCH (08:06)
[2016-06-08] MEDS: BusPIRone 15 MG TAB PO SCH ×2 (08:06→21:05)
[2016-06-08] MEDS: DOXYCYCLINE HYCLATE 100 MG CAP PO SCH (08:07)
[2016-06-08] MEDS: THIAMINE HCL 100 MG TAB PO SCH (08:07)
[2016-06-08] MEDS: AMLODIPINE BESYLATE 5 MG TAB PO SCH (08:08)
[2016-06-08] MEDS: DIPYRIDAMOLE/ASPIRIN CAP PO SCH ×2 (08:09→21:05)
[2016-06-08] MEDS: CLOPIDOGREL BISULFATE 75 MG TAB PO SCH (08:09)
[2016-06-08] MEDS: ESCITALOPRAM OXALATE 20 MG TAB PO SCH (08:09)
[2016-06-08] MEDS: LIFITEGRAST 5% OP SCH ×2 (08:12→21:04)
[2016-06-08] MEDS: SODIUM CHLORIDE 0.65% NA SOLN 45 ML (OCEAN) SCH ×4 (08:12→21:05)
[2016-06-08] MEDS: PANTOprazole SOD 40 MG TAB PO SCH (08:13)
[2016-06-08] MEDS: CALCIUM 600MG + VIT D 400 IU TAB PO SCH ×2 (08:13→21:05)
[2016-06-08] MEDS: DOCUSATE SODIUM 100 MG CAP PO SCH (08:13)
[2016-06-08] MEDS: ASPIRIN 81 MG ECTAB PO SCH (08:13)
[2016-06-08] MEDS: CHOLECALCIFEROL 1000 INTER.UNIT TAB PO SCH ×2 (08:14→21:05)
[2016-06-08] MEDS: ASCORBIC ACID 500 MG TAB PO SCH ×2 (08:14→21:05)
[2016-06-08] MEDS: MAGNESIUM CHLORIDE 64MG DELAYED REL TAB PO SCH (08:14)
[2016-06-08] MEDS ORDERED: IMPACT LIQ 1000 ML BAG PO SCH (09:00)
[2016-06-08] MEDS ORDERED: LORAZEPAM 2 MG/ML 1 ML VIAL ONE (14:09)
[2016-06-08] MEDS ORDERED: LORAZEPAM 2 MG/ML 1 ML VIAL IV PRN (14:15)
--- NOTE | 2016-06-08 14:37 | Progress Note ---
Progress Note Date of Service Jun 08, 2016. Progress Note Team Lead: Patient was placed on home vent and desaturated to 83% after approximately 5 minutes. She then had some involuntary twitching of the left side of her face and became very rigid. The ventilators were exchange back before I arrived in the room. On exam VS were acceptable. She is unresponsive to sternal rub. PERRL, roving eye movements and some mouth movements that were similar to lip smacking but less prominent. Still UE and LE but not rigid, no cogwheeling. Ativan 2mg IV given. Stat CT head ordered as well as stat EEG. Daughter updated.
--- NOTE | 2016-06-08 15:01 | DIAGNOSTIC IMAGING REPORT ---
CT HEAD WITHOUT CONTRAST (CT) CLINICAL HISTORY: Acute change in mental status. Possible seizure. COMPARISON STUDY: 12/23/2014 TECHNIQUE: Axial CT of the brain is performed from the vertex to the skull base. IV contrast was not administered for this examination. CT DOSE: 821.00 mGycm FINDINGS: No intra or extra-axial mass lesions are visualized. There is no CT evidence of acute cortical infarction. There is no evidence of midline shift. There is no acute hemorrhage. No calvarial fractures are visualized. There are patchy white matter hypodensities likely on a small vessel basis. There is no evidence of pathologic ventricular dilatation. There is an old right parietal occipital lobe infarct. There is an old left parieto-occipital lobe infarct. There is a tiny old lacunar infarct within the left thalamus. There is near complete opacification of the right maxilla sinus. There is moderate mucosal disease within the sphenoid. There are multiple opacified ethmoid air cells. There is mucosal disease with hypoplastic frontal sinuses. IMPRESSION: 1. Old bilateral parieto-occipital infarcts 2. Progressive pansinus disease 3. No acute intracranial findings Electronically signed by: Viktor Whitfield M.D. 06/08/2016 3:00 PM Dictated Date/Time: 06/08/2016 2:58 PM
[2016-06-08] MEDS ORDERED: GABAPENTIN 250 MG/5 ML 470 ML BTL NG SCH ×2 (16:00→21:00)
--- NOTE | 2016-06-08 16:23 | EEG Procedure Note ---
EEG Procedure Note Date of Service Jun 08, 2016. Start / End Times Start Time: 3:39 PM End Time: 3:59 PM Referring Physician Aleyda Moses History This is a 71-year-old female who presents with aspiration pneumonia. Patient is unresponsive in the ICU with activity concerning for seizure. EEG for further evaluation of seizure etiology Ativan was administered at 2:14 PM Home Medication List Scheduled Allopurinol (Zyloprim), 100 MG PO LUNCH Amlodipine Besylate (Norvasc), 1.5 TAB PO DAILY Ascorbic Acid (Ascorbic Acid), 500 MG PO BID Aspirin (Aspirin Ec), 81 MG PO DAILY Aspirin-Dipyridamole 25MG/200MG (Aggrenox 200MG/25MG), 1 CAP PO BID Bisacodyl (Bisac-Evac), 10 MG MO TuTh@0530 Bisacodyl (Bisac-Evac), 10 MG MO SuMoWeFrSa@2330 Buspirone Hcl (Buspar), 7.5 MG PO BID Calcium Carbonate-Vitamin D W/ (Caltrate 600 Plus), 600 MG PO BID Cholecalciferol (Vitamin D), 5,000 UNITS PO DAILY Clopidogrel (Plavix), 75 MG PO DAILY Docusate Sodium (Colace), 1 CAP PO BID Epoetin Biju (Procrit), 1 DOSE INJ WK Ertapenem Sodium (Invanz), 1 GM IV Q24H Escitalopram Oxalate (Lexapro), 20 MG PO QAM Fidaxomicin (Dificid), 200 MG PO BID Fluconazole (Diflucan), 100 MG PO QPM Gabapentin (Gabapentin), 100 MG PO QAM Gabapentin (Gabapentin), 200 MG PO 1600 Gabapentin (Gabapentin), 600 MG PO HS Gentamicin In Saline (Gentamicin Sulfate/0.9% S), 88 MG INJ WEEKLY Insulin Aspart (Novolog), UNITS SC SS Ipratropium-Albuterol (Duoneb), 3 ML INH Q6R Levofloxacin (Levaquin), 250 MG PO DAILY Lidocaine (Lidoderm Patch 5%), 2 PATCH TOP Q12 Lifitegrast (Xiidra), 1 DROP OPB BID Lorazepam (Ativan), 0.5 MG PO PRN Lysine (L-Lysine), 500 MG PO QPM Magnesium Chloride (Slow-Mag Tab), 64 MG PO BID Meropenem (Meropenem), 500 MG IV Q8H Methenamine Hippurate (Methenamine Hippurate), 1 GM PO BID Methylnaltrexone [place] (Relistor), SQ QOD Multiple Vitamins W/ Minerals (Theragran-M), 1 TABLET PO QAM Pantoprazole Sodium (Protonix), 40 MG PO BID Pentosan Polysulfate Sodium (Elmiron), 100 MG PO BID Polyethylene Glycol 3350 (Miralax), 17 GM PO DAILY Probiotic Product (Probiotic), 1 CAP PO TID Solifenacin (Vesicare), 10 MG PO HS Sulfa/Trimethoprim (Bactrim Ds 800MG/160MG), 1 TAB PO BID Thiamine Hcl (Vitamin B-1), 1 TAB PO DAILY White Petrolatum-Mineral Oil (Systane Nighttime), 1 APPLN OPB HS Scheduled PRN Acetaminophen (Tylenol), 1,000 MG PO Q6 PRN for Pain or Fever Melatonin (Melatonin), 1-3 TABS PO HS PRN for Sleep Ondansetron Hcl (Zofran), 4 MG PO Q4H PRN for Nausea Phenazopyridine HCl (Pyridium), 200 MG PO DAILY PRN for Bladder pain Polyethylene Glycol-Propylene (Systane), 2 DROPS OPB BID PRN for DRY EYES Quetiapine Fumarate (Seroquel), 25 MG PO HS PRN for Sleep Inpatient Medication List Current Inpatient Medications Medications (Trade) Dose Ordered Sig/Tasha Route Start Time Stop Time Status Last Admin Dose Admin Acetaminophen (Tylenol Tab) 650 mg Q4H PRN PO 05/28/16 23:00 06/27/16 22:59 06/07/16 08:20 650 MG Levalbuterol (Xopenex 1.25MG/ 3ML Neb) 1.25 mg Q4H PRN INH 05/28/16 23:00 06/27/16 22:59 Ondansetron HCl (Zofran Inj) 4 mg Q6H PRN IV 05/28/16 23:00 06/27/16 22:59 06/03/16 21:03 4 MG Allopurinol (Zyloprim Tab) 100 mg DAILY PO 05/29/16 09:00 06/28/16 08:59 06/08/16 08:06 100 MG Ascorbic Acid (Vitamin C Tab) 500 mg BID PO 05/29/16 09:00 06/28/16 08:59 06/07/16 21:00 500 MG Dipyridamole/ Aspirin (Aggrenox 200MG/ 25MG Cap) 1 cap BID PO 05/29/16 09:00 06/28/16 08:59 06/08/16 08:09 1 CAP Buspirone HCl (BusPAR TAB) 7.5 mg BID PO 05/29/16 09:00 06/28/16 08:59 06/08/16 08:06 7.5 MG Calcium/Vitamin D (Caltrate Plus Tab) 1 tab BID PO 05/29/16 09:00 06/28/16 08:59 06/07/16 21:01 1 TAB Cholecalciferol (Vitamin D Tab) 1,000 inter.unit BID PO 05/29/16 09:00 06/28/16 08:59 06/07/16 21:05 1,000 INTER.UNIT Clopidogrel Bisulfate (plAVix TAB) 75 mg DAILY PO 05/29/16 09:00 06/28/16 08:59 06/08/16 08:09 75 MG Escitalopram Oxalate (Lexapro Tab) 20 mg QAM PO 05/29/16 09:00 06/28/16 08:59 06/08/16 08:09 20 MG Fluconazole (Diflucan Tab) 100 mg QPM PO 05/29/16 21:00 06/08/16 20:59 06/07/16 21:00 100 MG Magnesium Chloride (Slow-Mag Tab) 64 mg BID PO 05/29/16 09:00 06/28/16 08:59 Future Hold 06/06/16 21:31 64 MG Phenazopyridine HCl (Pyridium Tab) 200 mg DAILY PRN PO 05/28/16 23:00 06/27/16 22:59 Pentosan Polysulfate Sodium (Elmiron) 100 mg BID PO 05/29/16 09:00 06/28/16 08:59 06/08/16 08:04 100 MG Artificial Tears (Artificial Tears) 2 drops BID PRN OPB 05/29/16 04:45 06/28/16 04:44 Solifenacin (Vesicare) 10 mg HS PO 05/29/16 21:00 06/28/16 20:59 06/07/16 21:04 10 MG Thiamine HCl (Vitamin B-1 Tab) 100 mg DAILY PO 05/29/16 09:00 06/28/16 08:59 06/08/16 08:07 100 MG Artificial Tears (Lacri-Lube Oph Oint) 1 appln HS OPB 05/29/16 21:00 06/28/16 20:59 06/07/16 20:59 1 APPLN Insulin Aspart (novoLOG ASPART) SLIDING SCALE G... ACHS SC 05/29/16 06:45 06/28/16 06:59 05/31/16 12:17 1 UNITS Bisacodyl (Dulcolax Supp) 10 mg TuTh@0530 MO 05/29/16 06:15 06/28/16 06:14 05/31/16 05:30 10 MG Bisacodyl (Dulcolax Supp) 10 mg SuMoWeFrSa@2330 MO 05/30/16 23:30 06/29/16 23:29 06/06/16 22:29 10 MG Amlodipine Besylate (Norvasc Tab) 2.5 mg DAILY PO 05/29/16 09:00 06/28/16 08:59 06/08/16 08:08 2.5 MG Polyethylene (Miralax Powder Packet) 17 gm QPM PO 05/29/16 21:00 06/28/16 20:59 06/07/16 21:03 17 GM Albuterol/ Ipratropium (Duoneb) 3 ml Q6R INH 05/29/16 15:00 06/28/16 14:59 06/08/16 07:45 3 ML Quetiapine Fumarate (seroQUEL TAB) 25 mg HS PO 05/29/16 22:00 06/28/16 21:59 06/07/16 23:46 25 MG Sodium Chloride ([place] Nasal [place]) 2 sprays QID NA 05/30/16 21:00 06/29/16 20:59 06/08/16 10:46 2 SPRAYS Multi-Ingredient Ointment (Eucerin Unscented Cr) 0.25 appln BID PRN EXT 05/30/16 22:00 06/29/16 21:59 Quetiapine Fumarate (seroQUEL TAB) 25 mg TID PRN PO 06/01/16 11:45 07/01/16 11:44 06/01/16 18:18 25 MG Lifitegrast 1 drop 1 drop BID OP 06/06/16 21:00 07/06/16 20:59 06/08/16 08:12 1 DROP Imipenem/ Cilastatin Sodium/ Dextrose (Primaxin Iv/D5 100ml) 110 ml @ 100 mls/hr Q6H IV 06/06/16 16:30 06/13/16 14:14 06/08/16 10:45 100 MLS/HR Enteral Nutritional Formula (Impact 1.0 Nixon) 1,000 ml CONTINUOUS NG 06/08/16 10:15 07/08/16 10:14 Lansoprazole (Prevacid Solutab) 30 mg BID NG 06/08/16 21:00 07/08/16 20:59 Aspirin (Aspirin Chew) 81 mg DAILY NG 06/09/16 09:00 07/09/16 08:59 Docusate Sodium (coLACE SYRUP) 100 mg BID NG 06/08/16 21:00 07/08/16 20:59 Sterile Water (Tube Feeding Water Flush) 30 ea Q4 NG 06/08/16 12:00 07/08/16 11:59 06/08/16 10:45 30 EA Gabapentin (Neurontin) 100 mg QAM NG 06/09/16 09:00 07/09/16 08:59 Gabapentin (Neurontin) 200 mg DAILY@1600 NG 06/08/16 16:00 07/08/16 15:59 Gabapentin (Neurontin) 600 mg HS NG 06/08/16 21:00 07/08/16 20:59 Lorazepam (Ativan Inj) 2 mg Q1H PRN IV 06/08/16 14:15 07/08/16 14:14 Description This is a 21 electrode EEG with a single channel dedicated to limited EKG. The electrodes were placed in accordance with the International 10-20 system. At the start of this recording the patient was unresponsive. Background was poorly organized with no anterior to posterior gradient. Background was composed of predominantly symmetric moderate amplitude 1-4 Hz delta frequencies with intermixed theta and intermittent superimposed alpha frequencies. Hyperventilation was not done. Photic stimulation at various frequencies did not produce any abnormalities. There was no state changes or sleep transients. Interpretation This is an abnormal stat EEG secondary to moderate diffuse background disorganization and slowing There was no electrographic seizures or epileptiform discharges. Clinical Correlation This EEG indicates a moderate encephalopathy of nonspecific etiology Recent administration of Ativan can contribute to background encephalopathy.
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
[2016-06-08] MEDS: SOLIFENACIN 10 MG TAB PO SCH (21:03)
[2016-06-08] MEDS: POLYETHYLENE (MIRALAX) 17 GM PACK PO SCH (21:04)
[2016-06-08] MEDS: ARTIFICIAL TEARS OP OINT 3.5 GM TUBE OPB SCH (21:04)
[2016-06-08] MEDS: LANSOPRAZOLE SOLUTAB 30 MG NG SCH (21:04)
[2016-06-08] MEDS: QUETIAPINE FUMARATE 25 MG TAB PO SCH (21:05)
[2016-06-08] MEDS: DOCUSATE SODIUM 100 MG/10 ML UDC NG SCH (21:05)
[2016-06-08] MEDS: BISACODYL 10 MG SUPP PR SCH (22:18)
[2016-06-09] VITALS (20 sets, daily range): BP systolic 116–160; BP diastolic 56–83; PULSE 84–104; TEMP 36.4–38.9; O2SAT 95–100
[2016-06-09] MEDS: ALBUT/IPRATROP 3MG/0.5MG NEB 3 ML VIAL INH SCH ×3 (02:35→14:41)
[2016-06-09] MEDS: TUBE FEEDING WATER FLUSH NG SCH ×5 (03:42→20:22)
[2016-06-09] MEDS: IMIPENEM/CILASTATIN IV 500 MG in DEXTROSE 5% 100ML 100 ML IV SCH ×4 (05:09→22:07)
[2016-06-09] MEDS: INSULIN ASPART 100 UNITS/ML 3 ML PEN SC SCH ×4 (06:14→22:03)
[2016-06-09 06:34] LABS: BASO % 0.1 %; BASO ABS # 0.01 K/uL (0-0.2); COMPLETE YES; EOS % 0.6 %; HEMATOCRIT 32.3 % (37-47); IG% 0.6 %; LYMPH % 5.3 %; LYMPH ABS # 0.57 K/uL (1.2-3.4); MEAN CELL VOLUME 88.5 fL (80-100); MEAN CORPUSCULAR HEMOGLOBIN 28.2 pg (25-34); MEAN CORPUSCULAR HGB CONC 31.9 g/dl (32-36); MEAN PLATELET VOLUME 9.6 fL (7.4-10.4); MONO % 6.5 %; NEUT % 86.9 %; PLATELET COUNT 249 K/uL (130-400); RED BLOOD COUNT 3.65 M/uL (4.2-5.4); WHITE BLOOD COUNT 10.68 K/uL (4.8-10.8)
[2016-06-09 06:44] LABS: INR 1.3 (0.9-1.1); PARTIAL THROMBOPLASTIN RATIO 1.6; PROTHROMBIN TIME (PATIENT) 14.4 SECONDS (9.0-12.0)
[2016-06-09 07:17] LABS: CALCIUM 8.8 mg/dl (8.5-10.1); CREATININE 0.51 mg/dl (0.60-1.20); MAGNESIUM 1.8 mg/dl (1.8-2.4); POTASSIUM 3.6 mmol/L (3.5-5.1)
[2016-06-09 07:18] LABS: PHOSPHORUS 2.4 mg/dl (2.5-4.9)
[2016-06-09] MEDS: DIPYRIDAMOLE/ASPIRIN CAP PO SCH ×2 (07:18→21:59)
[2016-06-09] MEDS ORDERED: POTASSIUM PHOS 3 MMOL/1 ML INFUSION IV STA (07:39)
[2016-06-09] MEDS ORDERED: POTASSIUM PHOSPHATE INJ 15 MMOL in SODIUM CHLORIDE 0.9% 250ML 250 ML IV SCH (08:00)
[2016-06-09] MEDS: ESCITALOPRAM OXALATE 20 MG TAB PO SCH (08:07)
[2016-06-09] MEDS: DOCUSATE SODIUM 100 MG/10 ML UDC NG SCH ×2 (08:07→21:58)
[2016-06-09] MEDS: LIFITEGRAST 5% OP SCH ×2 (08:08→21:58)
[2016-06-09] MEDS: AMLODIPINE BESYLATE 5 MG TAB PO SCH (08:08)
[2016-06-09] MEDS: CHOLECALCIFEROL 1000 INTER.UNIT TAB PO SCH ×2 (08:09→22:01)
[2016-06-09] MEDS: ASCORBIC ACID 500 MG TAB PO SCH ×2 (08:09→22:01)
[2016-06-09] MEDS: ASPIRIN 81 MG CHEW NG SCH (08:09)
[2016-06-09] MEDS: THIAMINE HCL 100 MG TAB PO SCH (08:09)
[2016-06-09] MEDS: ALLOPURINOL 100 MG TAB PO SCH (08:09)
[2016-06-09] MEDS: CALCIUM 600MG + VIT D 400 IU TAB PO SCH ×2 (08:10→22:00)
[2016-06-09] MEDS: BusPIRone 15 MG TAB PO SCH ×2 (08:10→22:00)
[2016-06-09] MEDS: PENTOSAN POLYSULFATE SODIUM 100 MG CAP PO SCH ×2 (08:10→22:00)
[2016-06-09] MEDS: CLOPIDOGREL BISULFATE 75 MG TAB PO SCH (08:11)
[2016-06-09] MEDS: LANSOPRAZOLE SOLUTAB 30 MG NG SCH ×2 (08:11→21:58)
[2016-06-09] MEDS: SODIUM CHLORIDE 0.65% NA SOLN 45 ML (OCEAN) SCH ×4 (08:12→21:58)
--- NOTE | 2016-06-09 08:34 | PULMONARY PROGRESS NOTE ---
DATE: 06/09/2016 TIME: 7:55 a.m. SUBJECTIVE: The patient remains on mechanical ventilation. She is awake this morning. It is difficult to determine if she is oriented. When I ask her questions, she tries to talk but cannot. I tried to get her to shake her head yes or no and occasionally she would do that but most of the time not. Nursing staff reports she had a comfortable night with few awakenings. OBJECTIVE: GENERAL: The patient appeared comfortable. VITAL SIGNS: Most recent temperature is 37 degrees. Review of her temperature curves show that she has not had any significant fever for over 24 hours. However, 2 days ago, she had temperatures as high as 39.1. HEENT: Pupils did react. Mouth exam was unremarkable. Tracheostomy is in place. She is connected to our mechanical ventilator. NECK: She has a large neck. HEART: Heart rate is 88 per minute. The rhythm is regular. Blood pressure is 124/56. LUNGS: Auscultation of lung torres reveals diffuse rhonchi bilaterally. She sounds like she has secretions. It is not known when she was last suctioned. Respiratory rate is 20 breaths per minute. Saturation is 100% on the ventilator with 40% oxygen. ABDOMEN: Somewhat obese. Bowel sounds are active. There is no tenderness to palpation and no mass. EXTREMITIES: Show no cyanosis, clubbing or edema. She is immobile due to her quadriplegia. LABORATORY DATA: Today's white blood cell count is 10.68. Hemoglobin is 10.3. Platelets are 249,000. INR today is 1.3 and PTT is 41.8. Most recent blood gas had been done 2 days ago. Chemistry today shows sodium 136, potassium 3.6, chloride 99, bicarbonate 30. BUN is 22 with creatinine 0.51. Blood sugar was 174. Phosphorus is low at 2.4. The patient's pulmonary lavage from 06/04/2016 shows gram-negative bacilli but we do not seem to have a final culture yet. The patient had a head CT yesterday because of questionable seizure activity. This showed old bilateral parietal occipital infarcts. She has progressive pansinus disease. IMPRESSION: 1. Acute on chronic respiratory failure with hypoxia and hypercarbia. 2. Bilateral pneumonia. 3. Quadriplegia. 4. Pansinusitis. 5. Atelectasis. COMMENTS AND RECOMMENDATIONS: It appears that the pneumonia is what has worsened her status over the past several days. She is a little brighter from a mental status perspective. Her fevers have been better over the past 48 hours. Hopefully, this means she is having a response to therapy. She is currently on imipenem/cilastatin. The patient continues on DuoNeb treatments every 6 hours. She needs frequent suctioning. Would continue with her current treatment.
[2016-06-09] MEDS ORDERED: GABAPENTIN 250 MG/5 ML 470 ML BTL NG SCH (09:00)
[2016-06-09] MEDS ORDERED: NURSING VERBAL MED ORDER ONE (09:30)
[2016-06-09] MEDS: ACETAMINOPHEN SOLN 650MG/20.3 ML UDC PO PRN (10:15)
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
[2016-06-09] MEDS: IMPACT LIQ 1000 ML BAG NG SCH (13:30)
[2016-06-09 14:55] LABS: URINE APPEARANCE TURBID (CLEAR); URINE BILIRUBIN NEG (NEG); URINE COLOR YELLOW; URINE EPITHELIAL CELL AUTO >30 /lpf (0-5); URINE NITRITE NEG (NEG); URINE PH 5.5 (4.5-7.5); URINE SPECIFIC GRAVITY 1.011 (1.000-1.030); UROBILINOGEN NEG (NEG)
[2016-06-09 14:59] LABS: MANUAL MICROSCOPIC REQUIRED? NO; REVIEW REQ? NO
--- NOTE | 2016-06-09 15:39 | Progress Note ---
Progress Note Date of Service Jun 09, 2016. Progress Note PA Physician Supervision Note: I interviewed and examined the patient. Discussed with Slava Ley PAC and agree with findings and plan as documented in the note. Any exceptions or clarifications are listed here: None C3 Quadrepesis with infectious illness, concern for resistent organism, has persistent CXR changes of pneumonia or pneumonitis, Gram negative organism seen on bronch washings, pt is not at her usual baseline and still with some metabolic encephalopathy vitals and labs reviewed 06/09 exam with coarse breath sounds continue ertapenem and doxyxcine, supportive ventilator care and reculturing while awaiting her bronch culture to result Documented By: Dirk Mckeon
[2016-06-09] MEDS: GABAPENTIN 250 MG/5 ML 470 ML BTL NG SCH ×2 (16:30→21:58)
[2016-06-09] MEDS: ARTIFICIAL TEARS OP OINT 3.5 GM TUBE OPB SCH (21:59)
[2016-06-09] MEDS: QUETIAPINE FUMARATE 25 MG TAB PO SCH (22:00)
[2016-06-09] MEDS: SOLIFENACIN 10 MG TAB PO SCH (22:00)
[2016-06-09] MEDS: POLYETHYLENE (MIRALAX) 17 GM PACK PO SCH (22:00)
[2016-06-09] MEDS: BISACODYL 10 MG SUPP PR SCH (22:08)
[2016-06-10] VITALS (14 sets, daily range): BP systolic 132–171; BP diastolic 49–99; PULSE 76–97; TEMP 36.4–38.2; O2SAT 96–100
[2016-06-10] MEDS: TUBE FEEDING WATER FLUSH NG SCH ×7 (00:30→23:44)
[2016-06-10] MEDS: ALBUT/IPRATROP 3MG/0.5MG NEB 3 ML VIAL INH SCH ×4 (01:46→19:51)
[2016-06-10] MEDS: ACETAMINOPHEN SOLN 650MG/20.3 ML UDC PO PRN ×2 (04:28→08:21)
[2016-06-10] MEDS: IMIPENEM/CILASTATIN IV 500 MG in DEXTROSE 5% 100ML 100 ML IV SCH ×2 (04:30→08:27)
[2016-06-10] MEDS: INSULIN ASPART 100 UNITS/ML 3 ML PEN SC SCH ×4 (06:37→21:41)
[2016-06-10 06:57] LABS: BASO % 0.1 %; BASO ABS # 0.01 K/uL (0-0.2); COMPLETE YES; EOS % 0.5 %; HEMATOCRIT 31.8 % (37-47); IG% 0.4 %; LYMPH % 8.4 %; LYMPH ABS # 0.86 K/uL (1.2-3.4); MEAN CELL VOLUME 90.9 fL (80-100); MEAN CORPUSCULAR HEMOGLOBIN 28.9 pg (25-34); MEAN CORPUSCULAR HGB CONC 31.8 g/dl (32-36); MONO % 6.1 %; NEUT % 84.5 %; PLATELET COUNT 319 K/uL (130-400); WHITE BLOOD COUNT 10.29 K/uL (4.8-10.8)
[2016-06-10] MEDS: SODIUM CHLORIDE 0.65% NA SOLN 45 ML (OCEAN) SCH ×4 (07:25→21:45)
[2016-06-10] MEDS: PENTOSAN POLYSULFATE SODIUM 100 MG CAP PO SCH ×2 (07:26→21:20)
[2016-06-10] MEDS: BusPIRone 15 MG TAB PO SCH ×2 (07:26→21:18)
[2016-06-10] MEDS: ALLOPURINOL 100 MG TAB PO SCH (07:26)
[2016-06-10] MEDS: CLOPIDOGREL BISULFATE 75 MG TAB PO SCH (07:27)
[2016-06-10] MEDS: ASCORBIC ACID 500 MG TAB PO SCH ×2 (07:27→21:22)
[2016-06-10] MEDS: THIAMINE HCL 100 MG TAB PO SCH (07:27)
[2016-06-10] MEDS: DOCUSATE SODIUM 100 MG/10 ML UDC NG SCH ×2 (07:27→21:13)
[2016-06-10] MEDS: ESCITALOPRAM OXALATE 20 MG TAB PO SCH (07:27)
[2016-06-10] MEDS: LANSOPRAZOLE SOLUTAB 30 MG NG SCH ×2 (07:28→21:15)
[2016-06-10] MEDS: ASPIRIN 81 MG CHEW NG SCH (07:28)
[2016-06-10] MEDS: AMLODIPINE BESYLATE 5 MG TAB PO SCH (07:28)
[2016-06-10 07:29] LABS: BUN/CREATININE RATIO 50.6 (10-20); CALCIUM 8.3 mg/dl (8.5-10.1); CREATININE 0.59 mg/dl (0.60-1.20); MAGNESIUM 1.8 mg/dl (1.8-2.4)
[2016-06-10] MEDS: DIPYRIDAMOLE/ASPIRIN CAP PO SCH ×2 (07:29→21:17)
[2016-06-10] MEDS: LIFITEGRAST 5% OP SCH ×2 (07:29→21:16)
[2016-06-10 07:30] LABS: PHOSPHORUS 1.9 mg/dl (2.5-4.9)
[2016-06-10] MEDS: CALCIUM 600MG + VIT D 400 IU TAB PO SCH ×2 (07:30→21:19)
[2016-06-10] MEDS: CHOLECALCIFEROL 1000 INTER.UNIT TAB PO SCH ×2 (07:31→21:23)
[2016-06-10 07:54] LABS: ISTAT ALLEN TEST Pass; ISTAT ARTERIAL BLOOD GAS HCO3 28 meq/L (19-24); ISTAT ARTERIAL BLOOD GAS PCO2 35 mmHg (35-46); ISTAT ARTERIAL BLOOD GAS PO2 57 mmHg (80-95); ISTAT ARTERIAL BLOOD GAS pH 7.52 (7.35-7.45); ISTAT CARBON DIOXIDE 29 mEq/l (24-31); ISTAT DELIVERY SYSTEM Ventilator; ISTAT FIO2 0 %; ISTAT PEEP 5; ISTAT RATE 20; ISTAT SITE R Radial; VE 12; Vt 600
[2016-06-10] MEDS: IMPACT LIQ 1000 ML BAG NG SCH (07:55)
[2016-06-10] MEDS: GABAPENTIN 250 MG/5 ML 470 ML BTL NG SCH ×3 (07:56→21:14)
--- NOTE | 2016-06-10 08:12 | PULMONARY PROGRESS NOTE ---
DATE: 06/10/2016 TIME: 07:35 a.m. SUBJECTIVE: The patient reportedly has been doing well. She has not had any episodes of shortness of breath. She has been mentally alert. However, she has been having fevers. At 4 a.m. this morning, temperature was 38.2. Yesterday, her temperatures peaked at 38.9. The patient does not seem to be complaining of anything, although she is somewhat difficult to communicate with. Nursing staff reports that the secretions have decreased. She was switched back over to her home ventilator yesterday afternoon. She did not have any problems after that happened. She denies any nausea. OBJECTIVE: GENERAL: The patient is awake and alert. It is difficult to determine if she is oriented. She seemed to follow questions and commands better today than yesterday. Current temperature 37.2. Tracheostomy is in place. Respiratory therapy was reviewing her tubing and they indicate that she should have different tubing for the home ventilator than what she currently has. It appears they have placed a pediatric tubing on this ventilator. [facility] will need to be contacted apparently. CHEST: Normal development. HEART: Rate is 88. Blood pressure 157/72. The cardiac rhythm was normal sinus. LUNGS: There were very few rhonchi today. It is much clearer than yesterday. Oxygen saturations are 98%. ABDOMEN: Remains somewhat distended. Bowel sounds are present. She does not seem to be tender to palpation. EXTREMITIES: Unchanged. She is quadriplegic. Trace edema is noted. LABORATORY DATA: CBC today showed a white count of 10.29. Hemoglobin is 10.1. Platelets were 319,000. Urine yesterday showed +1 protein, 3+ blood, large leukocyte esterase, greater than 30 white blood cell count, and 10-30 RBC. Bacteria was reported as negative. Chemistry today is pending. IMPRESSIONS: 1. Respiratory failure -- acute on chronic with hypercarbia and hypoxia. 2. Bilateral pneumonia. 3. Recurrent fevers. 4. Quadriplegia. 5. Pansinusitis. 6. Atelectasis. RECOMMENDATIONS: The source of the fevers at this point is not entirely clear. The bronchoscopy was done back on the reporting gram negative bacilli. We still do not have a definite identification from that. We will recheck a portable x-ray in light of the persistent fevers. The blood cultures were picked up. The patient looks and sounds the best she has, but the persistent fevers are somewhat bothersome. INO
[2016-06-10] MEDS: ONDANSETRON INJ 2 MG/ML 2 ML VIAL IV PRN (08:27)
[2016-06-10] MEDS ORDERED: SODIUM PHOSPHATE 3 MMOL/1 ML INFUSION IV STA (08:43)
[2016-06-10] MEDS ORDERED: SODIUM PHOSPHATE INJ 21 MMOL in SODIUM CHLORIDE 0.9% 500ML 500 ML IV SCH (09:15)
--- NOTE | 2016-06-10 09:48 | DIAGNOSTIC IMAGING REPORT ---
CHEST ONE VIEW PORTABLE HISTORY: persistent fevers COMPARISON: Chest 06/07/2016. FINDINGS: Feeding tube terminates in the body of the stomach. No pneumothorax. Trace left pleural effusion persist. No change in the bilateral airspace opacities and interstitial thickening. Tracheostomy tube is unchanged in position. Bilateral Port-A-Cath terminates in the SVC. IMPRESSION: 1. Feeding tube terminates in the stomach. Remaining support lines are unchanged in position. 2. Bilateral airspace opacities and interstitial thickening persists. Electronically signed by: Iban Hoffman M.D. 06/10/2016 9:47 AM Dictated Date/Time: 06/10/2016 9:45 AM
--- NOTE | 2016-06-10 10:54 | DIAGNOSTIC IMAGING REPORT ---
KUB HISTORY: New NG tube placed (06/10 at 1005). Check NG placement. COMPARISON: KUB 06/07/2016. FINDINGS: The feeding tube terminates in the body of the stomach. Spinal catheter is again noted. The tip is not included on this study. The bowel gas pattern is unremarkable. No evidence for bowel obstruction. No renal calculi. No ureteral calculi. No pneumoperitoneum or pneumatosis. IMPRESSION: Feeding tube terminates in the body of the stomach. Electronically signed by: Iban Hoffman M.D. 06/10/2016 10:53 AM Dictated Date/Time: 06/10/2016 10:52 AM
--- NOTE | 2016-06-10 13:52 | Progress Note ---
Progress Note Date of Service Jun 10, 2016. Progress Note PA Physician Supervision Note: I interviewed and examined the patient. Discussed with Slava Ley PAC and agree with findings and plan as documented in the note. Any exceptions or clarifications are listed here: None C3 Quadrepesis with infectious illness, concern for resistant organism, has persistent CXR changes of pneumonia or pneumonitis, Gram negative Acinetobacter - seen on bronch washings, pt is not at her usual baseline and still with some metabolic encephalopathy will change antibiotic to amikacin vitals and labs reviewed 06/10 exam with coarse breath sounds cxr reviewed with persistent right lower lobe changes continue amikacin and doxyxcine, supportive ventilator care nutrition has been issue as while encephalopathic does not have drive to eat, coresafe placed and repositioned 06/10, continue TF Documented By: Dirk Mckeon
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
[2016-06-10] MEDS ORDERED: TIGECYCLINE IV SCH (15:00)
[2016-06-10] MEDS ORDERED: SODIUM CHLORIDE 0.9% IV SCH (15:00)
[2016-06-10 16:47] LABS: ISTAT ALLEN TEST Pass; ISTAT ARTERIAL BLOOD GAS HCO3 31 meq/L (19-24); ISTAT ARTERIAL BLOOD GAS PCO2 53 mmHg (35-46); ISTAT ARTERIAL BLOOD GAS PO2 77 mmHg (80-95); ISTAT ARTERIAL BLOOD GAS pH 7.37 (7.35-7.45); ISTAT CARBON DIOXIDE 32 mEq/l (24-31); ISTAT DELIVERY SYSTEM Ventilator; ISTAT FIO2 30 %; ISTAT PEEP 5; ISTAT RATE 20; ISTAT SITE L Radial; VE 10; Vt 550
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
[2016-06-10] MEDS ORDERED: DEXTROSE 5% IV SCH (21:00)
[2016-06-10] MEDS ORDERED: AMIKACIN SULFATE IV SCH (21:00)
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
[2016-06-10] MEDS: ARTIFICIAL TEARS OP OINT 3.5 GM TUBE OPB SCH (21:16)
[2016-06-10] MEDS: POLYETHYLENE (MIRALAX) 17 GM PACK PO SCH (21:20)
[2016-06-10] MEDS: QUETIAPINE FUMARATE 25 MG TAB PO SCH (21:21)
[2016-06-10] MEDS: SOLIFENACIN 10 MG TAB PO SCH (21:22)
[2016-06-10] MEDS: BISACODYL 10 MG SUPP PR SCH (21:29)
[2016-06-11] VITALS (12 sets, daily range): BP systolic 144–170; BP diastolic 56–85; PULSE 73–91; TEMP 36.3–36.6; O2SAT 93–100
[2016-06-11] MEDS: ALBUT/IPRATROP 3MG/0.5MG NEB 3 ML VIAL INH SCH ×4 (02:11→18:10)
[2016-06-11] MEDS: SODIUM CHLORIDE 0.9% IV SCH ×2 (04:05→16:24)
[2016-06-11] MEDS: TUBE FEEDING WATER FLUSH NG SCH ×5 (04:05→20:03)
[2016-06-11] MEDS: TIGECYCLINE IV SCH ×2 (04:05→16:24)
[2016-06-11] MEDS: ONDANSETRON INJ 2 MG/ML 2 ML VIAL IV PRN ×2 (05:16→19:57)
[2016-06-11 05:43] LABS: BASO % 0.2 %; BASO ABS # 0.02 K/uL (0-0.2); COMPLETE YES; EOS % 0.6 %; HEMATOCRIT 34.2 % (37-47); IG% 0.4 %; LYMPH % 5.6 %; LYMPH ABS # 0.69 K/uL (1.2-3.4); MEAN CORPUSCULAR HEMOGLOBIN 28.2 pg (25-34); MEAN PLATELET VOLUME 9.6 fL (7.4-10.4); MONO % 4.7 %; NEUT % 88.5 %; PLATELET COUNT 366 K/uL (130-400); RED BLOOD COUNT 3.76 M/uL (4.2-5.4); WHITE BLOOD COUNT 12.29 K/uL (4.8-10.8)
[2016-06-11 05:53] LABS: INR 1.3 (0.9-1.1); PARTIAL THROMBOPLASTIN RATIO 1.4; PROTHROMBIN TIME (PATIENT) 13.5 SECONDS (9.0-12.0)
[2016-06-11 06:09] LABS: BUN/CREATININE RATIO 77.7 (10-20); CALCIUM 8.5 mg/dl (8.5-10.1); CREATININE 0.51 mg/dl (0.60-1.20); MAGNESIUM 1.9 mg/dl (1.8-2.4); POTASSIUM 4.5 mmol/L (3.5-5.1)
[2016-06-11 06:17] LABS: PHOSPHORUS 3.8 mg/dl (2.5-4.9)
[2016-06-11] MEDS: INSULIN ASPART 100 UNITS/ML 3 ML PEN SC SCH ×3 (06:51→18:51)
[2016-06-11] MEDS: SODIUM CHLORIDE 0.65% NA SOLN 45 ML (OCEAN) SCH ×4 (08:07→21:14)
[2016-06-11] MEDS: ASPIRIN 81 MG CHEW NG SCH (08:08)
[2016-06-11] MEDS: DOCUSATE SODIUM 100 MG/10 ML UDC NG SCH ×2 (08:08→19:59)
[2016-06-11] MEDS: GABAPENTIN 250 MG/5 ML 470 ML BTL NG SCH ×3 (08:12→22:02)
[2016-06-11] MEDS: LANSOPRAZOLE SOLUTAB 30 MG NG SCH ×2 (08:12→20:00)
[2016-06-11] MEDS: LIFITEGRAST 5% OP SCH ×2 (08:13→21:18)
[2016-06-11] MEDS: DIPYRIDAMOLE/ASPIRIN CAP PO SCH ×2 (08:13→22:01)
[2016-06-11] MEDS: BusPIRone 15 MG TAB PO SCH ×2 (08:14→21:15)
[2016-06-11] MEDS: CALCIUM 600MG + VIT D 400 IU TAB PO SCH ×2 (08:16→20:00)
[2016-06-11] MEDS: PENTOSAN POLYSULFATE SODIUM 100 MG CAP PO SCH ×2 (08:16→21:16)
[2016-06-11] MEDS: AMLODIPINE BESYLATE 5 MG TAB PO SCH (08:17)
[2016-06-11] MEDS: ESCITALOPRAM OXALATE 20 MG TAB PO SCH (08:17)
[2016-06-11] MEDS: THIAMINE HCL 100 MG TAB PO SCH (08:18)
[2016-06-11] MEDS: CLOPIDOGREL BISULFATE 75 MG TAB PO SCH (08:18)
[2016-06-11] MEDS: ASCORBIC ACID 500 MG TAB PO SCH ×2 (08:19→20:00)
[2016-06-11] MEDS: ALLOPURINOL 100 MG TAB PO SCH (08:19)
[2016-06-11] MEDS: CHOLECALCIFEROL 1000 INTER.UNIT TAB PO SCH ×2 (08:19→20:01)
--- NOTE | 2016-06-11 09:21 | PROGRESS NOTE ---
DATE: 06/11/2016 The patient is ventilator dependent. The recent records were reviewed. She is comfortable at the present time. The cuff was deflated and she is able to speak somewhat. I think deflating the cuff would be risky at this point because I think her pneumonia is related to aspiration. Infectious disease evaluation and critical care evaluation noted. She is comfortable at the present time. She has 24-hour caregivers and a nurse who is here throughout the night states she has been quite comfortable. The sputum is scant. Respiratory rate is generally in the 20-24 range. It was 25 at 03:59 hours. She is now afebrile on antimicrobial agents. Dr. Corcoran's note from yesterday appreciated. She has not had any loose stools, though she had 3 bowel movements on the . None since midnight. PHYSICAL EXAMINATION: VITAL SIGNS: Stable and she is afebrile. Blood pressure is 161/56 and oxygen saturation is 100% on 30% FIO2 on the ventilator. Weight is 72.5 kilograms; it was 72.7 kilograms on the . I\T\O; 2731 in and 3125 out. She has had a bit more out than in over the last five days. HEENT: Eye and nose exam unremarkable. No subcutaneous emphysema noted. Trach site looks good. Posterior pharynx is normal with no evidence of thrush. She does have a small posterior pharynx with a large tongue, small pendulous uvula, normal soft palate. No nodes are noted. SHOULDER: She has a minimal shoulder shrug. HEART: Regular rate and rhythm. I thought the second heart sound was normal. LUNGS: Reveal crackles at both lung bases with no fremitus noted. ABDOMEN: Soft and protuberant. EXTREMITIES: She has significant muscle wasting of the lower extremities with no clinical evidence of DVT. DATA: Stool for C. diff is pending. The stool C. diff toxin B gene was negative. Hepatitis C antibody screen is negative, influenza A and B PCRs are negative. Blood gas yesterday revealed pH 7.37, pCO2 of 53, pO2 of 77 on her present ventilator settings with a minute ventilation of about 10 liters. White count is 12.3, hemoglobin 10.6, hematocrit 34%, platelet count 366,000. PRP is stable with a BUN of 40, CO2 was 31. Sugars have been in the 181-271 range. Calcium, phosphorus and magnesium are adequate. Sputum from the 20th from the bronchoscopy revealed Acinetobacter baumannii and is resistant to quinolones. IMPRESSION: 1. Bibasilar pneumonia. I believe this is related to aspiration. If one reviews the CT of the chest it reveals fairly dense bibasilar infiltrates. There is also significant fluid collection in the esophagus up to the level of thoracic outlet with some mild dilatation of the esophagus. I suspect she probably has significant esophageal dysfunction and this would certainly make her at great risk for aspiration, hence the need to keep the cuff up, which may provide marginal protection against aspiration. 2. Respiratory failure, chronic, related to C3 quadriparesis. 3. Possible chronic obstructive pulmonary disease. She had been a tobacco user in the past. 4. Anemia. RECOMMENDATIONS: 1. Full ventilator support. I would use our ventilators since it appears she did worse on her home ventilator until those settings can be set comparable to what we have her on now. Her arterial blood gas at this point looks good with adequate acid-base status and permissive hypercapnia which I think would be alright for her. 2. Continue with her present antimicrobial agents and follow infectious disease recommendations. 3. Keep the head of her bed up at about 60 degrees and I would perform all maneuvers to prevent aspiration. The feeding tube terminates in the body of the stomach. I think it will be perhaps judicious to consider a jejunostomy tube which may help to prevent aspiration somewhat. Overall from a pulmonary standpoint, she is stable. MTDD
[2016-06-11] MEDS ORDERED: PHARMACY GLYCEMIC MGMT CONSULT SCH (09:42)
--- NOTE | 2016-06-11 10:40 | Pharmacy Progress Note ---
Glycemic Control Intl Consult Date of Service Jun 11, 2016. Scope Glycemic Pharmacist consulted by Yenny REED on 06/11/16 for glycemic control and to write orders per [facility] inpatient glycemic control protocol Objective Weight (Kilograms): 72.500 Accuchecks BSG (last 24hrs): Test 06/10/16 11:19 06/10/16 16:35 06/10/16 21:02 06/11/16 05:29 Bedside Glucose 184 mg/dl (70-90) 181 mg/dl (70-90) 205 mg/dl (70-90) Random Glucose 239 mg/dl (70-99) Test 06/11/16 06:32 Bedside Glucose 271 mg/dl (70-90) Laboratory Data (last 24hrs) Test 06/11/16 05:29 Anion Gap 7.0 mmol/L BUN/Creatinine Ratio 77.7 Blood Urea Nitrogen 40 mg/dl Creatinine 0.51 mg/dl Potassium Level 4.5 mmol/L Sodium Level 140 mmol/L White Blood Count 12.29 K/uL Red Blood Count 3.76 M/uL Hemoglobin 10.6 g/dL Hematocrit 34.2 % Mean Corpuscular Volume 91.0 fL Mean Corpuscular Hemoglobin 28.2 pg Mean Corpuscular Hemoglobin Concent 31.0 g/dl Platelet Count 366 K/uL Mean Platelet Volume 9.6 fL Neutrophils (%) (Auto) 88.5 % Lymphocytes (%) (Auto) 5.6 % Monocytes (%) (Auto) 4.7 % Eosinophils (%) (Auto) 0.6 % Basophils (%) (Auto) 0.2 % Neutrophils # (Auto) 10.88 K/uL Lymphocytes # (Auto) 0.69 K/uL Monocytes # (Auto) 0.58 K/uL Eosinophils # (Auto) 0.07 K/uL Basophils # (Auto) 0.02 K/uL HbA1c Test 05/29/16 06:45 Hemoglobin A1c 6.0 % (4.5-5.6) H Recent Pertinent Medications Outpatient Anti-diabetic Regimen: * Novolog per sliding scale * A1c = 6 % 05/29/16 The patient is currently receiving: * Basal insulin: None * Correctional Insulin: Novolog Correction per scale ACHS Goal Range: Low 120 mg/dL - High 160 mg/dL Correction Factor: 40 mg/dL/unit * Prandial insulin: Per carb ratio of 1 unit per -- grams CHO consumed * Oral Agents: None Risk Factors for Insulin Resistance: * Infection: on Tigecycline per ID recs for 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 * Diet: Impact @ 70cc/hr (provides 54.6gm CHO every 6 hours) * Mechanical Ventilation: Yes Assessment & Plan ASSESSMENT: 06/11/16 * Glycemic control deteriorated as tube feeds were advanced to goal * She currently has orders for correctional insulin only, will add a carb ratio in order to proactively cover CHO administration * Will not add basal insulin at this time as she did not require basal insulin [employer], most recent A1c was 6.0, likely had adequate control with SSI alone [employer] PLAN FOR INPATIENT GLYCEMIC CONTROL: * No basal insulin at this time * Changing correction factor to 35 mg/dl/unit * Adding carb ratio of 1 unit per 12 grams CHO consumed * for Impact @20cc/hr, give 1 unit * for Impact @40cc/hr, give 3 units * for Impact @60cc/hr, give 4 units * for Impact @70cc/hr, give 5 units * Continuing goal range of Low 120 mg/dL - High 160 mg/dL * Please note that the plan above was derived based on current level of insulin resistance and hospital stress. These recommendations are appropriate for inpatient admission only. Plan of care upon discharge will need to be reassessed to avoid potential outpatient hypo/hyperglycemia. Thank you.
--- NOTE | 2016-06-11 10:56 | Critical Care Progress Note ---
Critical Care Progress Note Date of Service Jun 11, 2016. Attending Subjective She is anxious and appropriately despondent regarding her situation. Dyspnea anytime off the vent. Unable to take adequate PO. NG tube in place. Antibiotics noted given the isolate. Her situation is poor. Objective GENERAL : we talked with the cuff down. She is very upset with her situation EYES: No icterus, gaze conjugate. Pupils are equal NOSE: Nasogastric tube in the left nares MOUTH: No lesions or candidiasis. Mucosa is moist. NECK: Supple. Tracheostomy tube with no significant drainage to drainage pads. LUNGS: exchange is adequate, no wheezing HEART: Regular, rate controlled. ABDOMEN: abdomen is somewhat distended. No pain EXTREMITIES: No LE edema, pedal pulses intact. No sensation to touch NEURO: Awake and alert. She is unsure of her location Assessment & Plan C3 quadriplegic with chronic respiratory failure--no with complications regarding swallowing and probable aspiration 1. Pulmonary--vent support continues--pulmonary involved--very high risk for additional aspiration and decline 2. GI--the NG is not adequate for any meaningful support for any duration--PEG would provide nutrition but will not help with regard to aspiration 3. Neuropsychiatric--treatment goals look to require consideration--may be approaching time with emphasis directed toward comfort/palliation Critical Care Time 45 minutes Consults & Procedures Consultants: Pulmonary: Dr. Mixon/ Dr. Luther Infectious Dz: Ms. Martinez Procedures: Bronchoscopy Dr. Luther 06/04 Data Medications: Current Inpatient Medications Medications (Trade) Dose Ordered Sig/Tasha Route Start Time Stop Time Status Last Admin Dose Admin Levalbuterol (Xopenex 1.25MG/ 3ML Neb) 1.25 mg Q4H PRN INH 05/28/16 23:00 06/27/16 22:59 Ondansetron HCl (Zofran Inj) 4 mg Q6H PRN IV 05/28/16 23:00 06/27/16 22:59 06/11/16 05:16 4 MG Allopurinol (Zyloprim Tab) 100 mg DAILY PO 05/29/16 09:00 06/28/16 08:59 06/11/16 08:19 100 MG Ascorbic Acid (Vitamin C Tab) 500 mg BID PO 05/29/16 09:00 06/28/16 08:59 06/11/16 08:19 500 MG Dipyridamole/ Aspirin (Aggrenox 200MG/ 25MG Cap) 1 cap BID PO 05/29/16 09:00 06/28/16 08:59 06/11/16 08:13 1 CAP Buspirone HCl (BusPAR TAB) 7.5 mg BID PO 05/29/16 09:00 06/28/16 08:59 06/11/16 08:14 7.5 MG Calcium/Vitamin D (Caltrate Plus Tab) 1 tab BID PO 05/29/16 09:00 06/28/16 08:59 06/11/16 08:16 1 TAB Cholecalciferol (Vitamin D Tab) 1,000 inter.unit BID PO 05/29/16 09:00 06/28/16 08:59 06/11/16 08:19 1,000 INTER.UNIT Clopidogrel Bisulfate (plAVix TAB) 75 mg DAILY PO 05/29/16 09:00 06/28/16 08:59 06/11/16 08:18 75 MG Escitalopram Oxalate (Lexapro Tab) 20 mg QAM PO 05/29/16 09:00 06/28/16 08:59 06/11/16 08:17 20 MG Magnesium Chloride (Slow-Mag Tab) 64 mg BID PO 05/29/16 09:00 06/28/16 08:59 Future Hold 06/06/16 21:31 64 MG Phenazopyridine HCl (Pyridium Tab) 200 mg DAILY PRN PO 05/28/16 23:00 06/27/16 22:59 Pentosan Polysulfate Sodium (Elmiron) 100 mg BID PO 05/29/16 09:00 06/28/16 08:59 06/11/16 08:16 100 MG Artificial Tears (Artificial Tears) 2 drops BID PRN OPB 05/29/16 04:45 06/28/16 04:44 06/10/16 07:57 2 DROPS Solifenacin (Vesicare) 10 mg HS PO 05/29/16 21:00 06/28/16 20:59 06/10/16 21:22 10 MG Thiamine HCl (Vitamin B-1 Tab) 100 mg DAILY PO 05/29/16 09:00 06/28/16 08:59 06/11/16 08:18 100 MG Artificial Tears (Lacri-Lube Oph Oint) 1 appln HS OPB 05/29/16 21:00 06/28/16 20:59 06/10/16 21:16 1 APPLN Bisacodyl (Dulcolax Supp) 10 mg TuTh@0530 MN 05/29/16 06:15 06/28/16 06:14 05/31/16 05:30 10 MG Bisacodyl (Dulcolax Supp) 10 mg SuMoWeFrSa@2330 MN 05/30/16 23:30 06/29/16 23:29 06/09/16 22:08 10 MG Amlodipine Besylate (Norvasc Tab) 2.5 mg DAILY PO 05/29/16 09:00 06/28/16 08:59 06/11/16 08:17 2.5 MG Polyethylene (Miralax Powder Packet) 17 gm QPM PO 05/29/16 21:00 06/28/16 20:59 06/10/16 21:20 17 GM Albuterol/ Ipratropium (Duoneb) 3 ml Q6R INH 05/29/16 15:00 06/28/16 14:59 06/11/16 09:02 3 ML Quetiapine Fumarate (seroQUEL TAB) 25 mg HS PO 05/29/16 22:00 06/28/16 21:59 06/10/16 21:21 25 MG Sodium Chloride (Major Nasal [place]) 2 sprays QID NA 05/30/16 21:00 06/29/16 20:59 06/11/16 08:07 2 SPRAYS Multi-Ingredient Ointment (Eucerin Unscented Cr) 0.25 appln BID PRN EXT 05/30/16 22:00 06/29/16 21:59 06/10/16 08:21 0.25 APPLN Quetiapine Fumarate (seroQUEL TAB) 25 mg TID PRN PO 06/01/16 11:45 07/01/16 11:44 06/01/16 18:18 25 MG Lifitegrast (Xiidra 5% Oph Soln) 1 drop BID OP 06/06/16 21:00 07/06/16 20:59 06/11/16 08:13 1 DROP Enteral Nutritional Formula (Impact 1.0 Nixon) 1,000 ml CONTINUOUS NG 06/08/16 10:15 07/08/16 10:14 06/10/16 07:55 1,000 ML Lansoprazole (Prevacid Solutab) 30 mg BID NG 06/08/16 21:00 07/08/16 20:59 06/11/16 08:12 30 MG Aspirin (Aspirin Chew) 81 mg DAILY NG 06/09/16 09:00 07/09/16 08:59 06/11/16 08:08 81 MG Docusate Sodium (coLACE SYRUP) 100 mg BID NG 06/08/16 21:00 07/08/16 20:59 06/11/16 08:08 100 MG Sterile Water (Tube Feeding Water Flush) 30 ea Q4 NG 06/08/16 12:00 07/08/16 11:59 06/11/16 07:43 30 EA Lorazepam (Ativan Inj) 2 mg Q1H PRN IV 06/08/16 14:15 07/08/16 14:14 Acetaminophen (Tylenol Soln) 650 mg Q4H PRN PO 06/09/16 09:45 07/09/16 09:44 06/10/16 08:21 650 MG Gabapentin (Neurontin) 100 mg QAM NG 06/10/16 09:00 07/09/16 08:59 06/11/16 08:12 100 MG Gabapentin (Neurontin) 200 mg DAILY@1600 NG 06/09/16 16:00 07/08/16 15:59 06/10/16 16:41 200 MG Gabapentin 600 mg 600 mg HS NG 06/09/16 21:00 07/08/16 20:59 06/10/16 21:14 600 MG Tigecycline/ Sodium Chloride (Tygacil Inj/Nss 100ml) 105 ml @ 200 mls/hr Q12@0400,1600 IV 06/11/16 04:00 06/18/16 03:59 06/11/16 04:05 200 MLS/HR Miscellaneous Information (Consult Glycemic Management Pharmacy) 1 ea UD N/A 06/11/16 09:42 07/11/16 09:41 Insulin Aspart (novoLOG ASPART) SLIDING SCALE G... Q6 SC 06/11/16 12:00 07/11/16 11:59 I & O: 24-Hour Column 06/11/16 08:00 Intake Total 2731 ml Output Total 3185 ml Balance -454 ml Vital Signs: Date Time Temp Pulse Resp B/P Pulse Ox O2 Delivery O2 Flow Rate FiO2 06/11/16 10:00 86 22 155/70 93 Mechanical Ventilator 30 06/11/16 09:05 81 16 100 Mechanical Ventilator 4.0 06/11/16 08:10 30 06/11/16 08:00 36.3 83 20 153/80 100 Mechanical Ventilator 06/11/16 08:00 30 06/11/16 08:00 95 30 06/11/16 06:00 87 22 161/56 100 Mechanical Ventilator 30 06/11/16 05:31 30 06/11/16 04:00 Mechanical Ventilator 06/11/16 04:00 30 06/11/16 03:59 36.3 91 25 170/85 100 Mechanical Ventilator 30 06/11/16 02:11 30 06/11/16 01:59 73 22 158/75 99 Mechanical Ventilator 30 06/11/16 00:01 30 06/11/16 00:01 Mechanical Ventilator 06/10/16 23:59 36.6 79 25 148/61 100 Mechanical Ventilator 30 06/10/16 23:39 81 21 132/63 100 Mechanical Ventilator 30 06/10/16 23:15 30 06/10/16 21:59 78 21 157/73 100 Mechanical Ventilator 30 06/10/16 20:00 Mechanical Ventilator 06/10/16 20:00 30 06/10/16 19:59 36.4 76 19 171/99 100 Mechanical Ventilator 30 06/10/16 19:51 30 06/10/16 18:17 81 20 148/67 100 Mechanical Ventilator 30 06/10/16 16:00 30 06/10/16 16:00 Mechanical Ventilator 40 06/10/16 15:59 36.6 77 20 145/74 100 Mechanical Ventilator 30 06/10/16 14:22 79 16 99 Mechanical Ventilator 4.0 06/10/16 14:21 30 06/10/16 13:59 83 30 138/66 99 Mechanical Ventilator 30 06/10/16 12:00 Mechanical Ventilator 40 06/10/16 12:00 30 06/10/16 11:59 37.0 81 20 140/75 100 Mechanical Ventilator 30 06/10/16 11:34 30 Laboratory Results: Last 24 Hours Test 06/10/16 11:19 06/10/16 14:00 06/10/16 16:34 06/10/16 16:35 Bedside Glucose 184 mg/dl 181 mg/dl Blood Gas Sample Site L Radial Bedside Blood Gas pH (LAB) 7.37 Bedside Blood Gas pCO2 (LAB) 53 mmHg Bedside Blood Gas pO2 (LAB) 77 mmHg Bedside Blood Gas HCO3 (LAB) 31 meq/L Bedside Blood Gas Total CO2 32 mEq/l Bedside Blood Gas Base Excess (LAB) 5.0 meq/L Bedside Blood Gas O2 Saturation 94.0 % Yogesh Test Pass Oxygen Delivery Device Ventilator Bedside Oxygen Rate (breaths/min) 20 Blood Gas Minute Ventilation 10 Bedside FiO2 30 % Blood Gas Tidal Volume 550 Blood Gas PEEP 5 Test 06/10/16 21:02 06/11/16 05:29 06/11/16 06:32 Bedside Glucose 205 mg/dl 271 mg/dl White Blood Count 12.29 K/uL Red Blood Count 3.76 M/uL Hemoglobin 10.6 g/dL Hematocrit 34.2 % Mean Corpuscular Volume 91.0 fL Mean Corpuscular Hemoglobin 28.2 pg Mean Corpuscular Hemoglobin Concent 31.0 g/dl Platelet Count 366 K/uL Mean Platelet Volume 9.6 fL Neutrophils (%) (Auto) 88.5 % Lymphocytes (%) (Auto) 5.6 % Monocytes (%) (Auto) 4.7 % Eosinophils (%) (Auto) 0.6 % Basophils (%) (Auto) 0.2 % Neutrophils # (Auto) 10.88 K/uL Lymphocytes # (Auto) 0.69 K/uL Monocytes # (Auto) 0.58 K/uL Eosinophils # (Auto) 0.07 K/uL Basophils # (Auto) 0.02 K/uL RDW Standard Deviation 59.2 fL RDW Coefficient of Variation 17.8 % Immature Granulocyte % (Auto) 0.4 % Immature Granulocyte # (Auto) 0.05 K/uL Prothrombin Time 13.5 SECONDS Prothromb Time International Ratio 1.3 Activated Partial Thromboplast Time 37.5 SECONDS Partial Thromboplastin Ratio 1.4 Sodium Level 140 mmol/L Potassium Level 4.5 mmol/L Chloride Level 102 mmol/L Carbon Dioxide Level 31 mmol/L Anion Gap 7.0 mmol/L Blood Urea Nitrogen 40 mg/dl Creatinine 0.51 mg/dl Est Creatinine Clear Calc Drug Dose 92.2 ml/min Estimated GFR () 113.7 Estimated GFR (Non- 98.1 BUN/Creatinine Ratio 77.7 Random Glucose 239 mg/dl Calcium Level 8.5 mg/dl Phosphorus Level 3.8 mg/dl Magnesium Level 1.9 mg/dl
[2016-06-11] MEDS ORDERED: INSULIN ASPART 100 UNITS/ML 3 ML PEN SC SCH (12:00)
[2016-06-11] MEDS: SOLIFENACIN 10 MG TAB PO SCH (20:01)
[2016-06-11] MEDS: IMPACT LIQ 1000 ML BAG NG SCH (21:14)
[2016-06-11] MEDS: QUETIAPINE FUMARATE 25 MG TAB PO SCH (21:15)
[2016-06-11] MEDS: POLYETHYLENE (MIRALAX) 17 GM PACK PO SCH (21:18)
[2016-06-11] MEDS: ARTIFICIAL TEARS OP OINT 3.5 GM TUBE OPB SCH (21:18)
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
[2016-06-11] MEDS ORDERED: SIMETHICONE 80 MG CHEW PO PRN (23:00)
[2016-06-11] MEDS: BISACODYL 10 MG SUPP PR SCH ×3 (23:04→23:32)
[2016-06-12] VITALS (10 sets, daily range): BP systolic 126–158; BP diastolic 60–81; PULSE 78–95; TEMP 36.4–36.5; O2SAT 98–100
[2016-06-12] MEDS: TUBE FEEDING WATER FLUSH NG SCH ×6 (00:09→19:50)
[2016-06-12] MEDS: INSULIN ASPART 100 UNITS/ML 3 ML PEN SC SCH ×5 (00:11→19:50)
[2016-06-12] MEDS: ALBUT/IPRATROP 3MG/0.5MG NEB 3 ML VIAL INH SCH ×4 (01:42→19:08)
[2016-06-12] MEDS: ONDANSETRON INJ 2 MG/ML 2 ML VIAL IV PRN ×2 (02:59→20:01)
[2016-06-12] MEDS: TIGECYCLINE IV SCH ×2 (03:44→16:56)
[2016-06-12] MEDS: SODIUM CHLORIDE 0.9% IV SCH ×2 (03:44→16:56)
[2016-06-12] MEDS: BISACODYL 10 MG SUPP PR SCH (05:30)
[2016-06-12 05:56] LABS: BASO % 0.2 %; BASO ABS # 0.02 K/uL (0-0.2); COMPLETE YES; EOS % 0.3 %; HEMATOCRIT 33.6 % (37-47); IG% 0.3 %; LYMPH ABS # 0.58 K/uL (1.2-3.4); MEAN CELL VOLUME 95.2 fL (80-100); MEAN CORPUSCULAR HEMOGLOBIN 29.2 pg (25-34); MEAN CORPUSCULAR HGB CONC 30.7 g/dl (32-36); MEAN PLATELET VOLUME 10.3 fL (7.4-10.4); MONO % 6.2 %; PLATELET COUNT 397 K/uL (130-400); RED BLOOD COUNT 3.53 M/uL (4.2-5.4); WHITE BLOOD COUNT 11.54 K/uL (4.8-10.8)
[2016-06-12 06:24] LABS: ALT/SGPT 11 U/L (12-78); AST/SGOT 4 U/L (15-37); BLOOD UREA NITROGEN 49 mg/dl (7-18); BUN/CREATININE RATIO 102.8 (10-20); CALCIUM 8.7 mg/dl (8.5-10.1); CARBON DIOXIDE 32 mmol/L (21-32); CHLORIDE 106 mmol/L (98-107); CREATININE 0.48 mg/dl (0.60-1.20); GLUCOSE 263 mg/dl (70-99); MAGNESIUM 2.1 mg/dl (1.8-2.4); POTASSIUM 4.3 mmol/L (3.5-5.1); SODIUM 143 mmol/L (136-145)
[2016-06-12 06:26] LABS: ALB/GLOB RATIO 0.3 (0.9-2); ALKALINE PHOSPHATASE 153 U/L (45-117); PHOSPHORUS 3.5 mg/dl (2.5-4.9)
--- NOTE | 2016-06-12 07:52 | PULMONARY PROGRESS NOTE ---
DATE: 06/12/2016 The patient remains ventilator dependent. She appears to be tolerating the ventilator well. Her ventilation is 11.4 liters. She did have some episodes of shortness of breath last night but is comfortable at the present time. Sputum is scant. I believe she may be considered for a PEG tube or jejunostomy tube. I believe I would favor a jejunostomy tube as there may be slightly reduced at risk of aspiration. Head of her bed is up at 60 degrees. PHYSICAL EXAMINATION: VITAL SIGNS: Stable and she is afebrile, blood pressure 141/60, respiratory rate 20. Weight is stable at 71 kilograms and this has been about the same since the . According to nurses' note she had a fairly good night last night. Her rhythm has been in normal sinus rhythm. Staples catheter is draining appropriately. She did have a bit of nausea last night with no residual noted with the tube feeding. HEENT: Posterior pharynx is unremarkable. Tongue reveals no thrush. Trach site looks good. No subcutaneous emphysema is noted. HEART: Regular rate and rhythm. No murmurs are heard. LUNGS: Reveal some rhonchi anteriorly over the left anterior lung field. No fremitus is noted. ABDOMEN: Soft and protuberant. EXTREMITIES: She has no cyanosis, clubbing or edema. Bilateral footdrop noted. LABORATORY DATA: White count 11.5, hemoglobin 10.3 and platelet count 397,000. Blood gas was stable on the . Sugars have been in the 224-274 range. BUN is 49, creatinine 0.48, CO2 of 32. Liver function studies are normal with an alkaline phosphatase elevated at 153. Procalcitonin was slightly increased at 4.09. IMPRESSION: 1. Respiratory failure. 2. Atelectasis. 3. Aspiration pneumonia. RECOMMENDATIONS: 1. Continue with her full ventilator support with Hospital ventilator. 2. If we are going to use the Passy-[place] device or any speaking device that should be taken off ventilator with the cuff deflated. I would keep her up at 90 degrees sitting up. 2. Continue with her present medications including the albuterol with the DuoNeb for enhancement of mucociliary clearance. Overall, she is stable.
[2016-06-12] MEDS: DOCUSATE SODIUM 100 MG/10 ML UDC NG SCH ×2 (09:00→21:00)
[2016-06-12] MEDS: GABAPENTIN 250 MG/5 ML 470 ML BTL NG SCH ×3 (09:00→21:24)
[2016-06-12] MEDS: SODIUM CHLORIDE 0.65% NA SOLN 45 ML (OCEAN) SCH ×4 (09:00→19:51)
[2016-06-12] MEDS: LIFITEGRAST 5% OP SCH ×2 (09:00→21:00)
[2016-06-12] MEDS: LANSOPRAZOLE SOLUTAB 30 MG NG SCH ×2 (09:00→19:51)
[2016-06-12] MEDS: ASPIRIN 81 MG CHEW NG SCH (09:36)
[2016-06-12] MEDS: DIPYRIDAMOLE/ASPIRIN CAP PO SCH ×2 (09:39→21:21)
[2016-06-12] MEDS: ASCORBIC ACID 500 MG TAB PO SCH ×2 (09:40→19:52)
[2016-06-12] MEDS: CALCIUM 600MG + VIT D 400 IU TAB PO SCH ×2 (09:40→21:21)
[2016-06-12] MEDS: BusPIRone 15 MG TAB PO SCH ×2 (09:41→21:22)
[2016-06-12] MEDS: CLOPIDOGREL BISULFATE 75 MG TAB PO SCH (09:41)
[2016-06-12] MEDS: ALLOPURINOL 100 MG TAB PO SCH (09:41)
[2016-06-12] MEDS: ESCITALOPRAM OXALATE 20 MG TAB PO SCH (09:41)
[2016-06-12] MEDS: THIAMINE HCL 100 MG TAB PO SCH (09:41)
[2016-06-12] MEDS: PENTOSAN POLYSULFATE SODIUM 100 MG CAP PO SCH ×2 (09:42→19:56)
[2016-06-12] MEDS: AMLODIPINE BESYLATE 5 MG TAB PO SCH (09:42)
[2016-06-12] MEDS: CHOLECALCIFEROL 1000 INTER.UNIT TAB PO SCH ×2 (09:42→19:52)
--- NOTE | 2016-06-12 09:53 | Infectious Disease Progress Nt ---
Progress Note Date of Service Jun 12, 2016. Subjective Pt evaluation today including: conversation w/ patient, conversation w/ family (caregiver), physical exam, chart review, lab review, review of studies, review of inpatient medication list WBC count this morning 11.54. Creatinine stable at 0.48. C. Diff toxin negative. CXR over the weekend showed bilateral airspace opacities and interstitial thickening persisting. She does have an NG tube in place. She has been afebrile for multiple days. Patient is becoming slightly discouraged because she still feels poorly. She does seem slightly improved. She has had some loose stools. Acinetobacter growing from sputum culture. She is currently on Tigecycline All Other Systems: Reviewed and Negative Medications Current Inpatient Medications Medications (Trade) Dose Ordered Sig/Tasha Route Start Time Stop Time Status Last Admin Dose Admin Levalbuterol (Xopenex 1.25MG/ 3ML Neb) 1.25 mg Q4H PRN INH 05/28/16 23:00 06/27/16 22:59 Ondansetron HCl (Zofran Inj) 4 mg Q6H PRN IV 05/28/16 23:00 06/27/16 22:59 06/12/16 02:59 4 MG Allopurinol (Zyloprim Tab) 100 mg DAILY PO 05/29/16 09:00 06/28/16 08:59 06/12/16 09:41 100 MG Ascorbic Acid (Vitamin C Tab) 500 mg BID PO 05/29/16 09:00 06/28/16 08:59 06/12/16 09:40 500 MG Dipyridamole/ Aspirin (Aggrenox 200MG/ 25MG Cap) 1 cap BID PO 05/29/16 09:00 06/28/16 08:59 06/12/16 09:39 1 CAP Buspirone HCl (BusPAR TAB) 7.5 mg BID PO 05/29/16 09:00 06/28/16 08:59 06/12/16 09:41 7.5 MG Calcium/Vitamin D (Caltrate Plus Tab) 1 tab BID PO 05/29/16 09:00 06/28/16 08:59 06/12/16 09:40 1 TAB Cholecalciferol (Vitamin D Tab) 1,000 inter.unit BID PO 05/29/16 09:00 06/28/16 08:59 06/12/16 09:42 1,000 INTER.UNIT Clopidogrel Bisulfate (plAVix TAB) 75 mg DAILY PO 05/29/16 09:00 06/28/16 08:59 06/12/16 09:41 75 MG Escitalopram Oxalate (Lexapro Tab) 20 mg QAM PO 05/29/16 09:00 06/28/16 08:59 06/12/16 09:41 20 MG Magnesium Chloride (Slow-Mag Tab) 64 mg BID PO 05/29/16 09:00 06/28/16 08:59 Future Hold 06/06/16 21:31 64 MG Phenazopyridine HCl (Pyridium Tab) 200 mg DAILY PRN PO 05/28/16 23:00 06/27/16 22:59 Pentosan Polysulfate Sodium (Elmiron) 100 mg BID PO 05/29/16 09:00 06/28/16 08:59 06/12/16 09:42 100 MG Artificial Tears (Artificial Tears) 2 drops BID PRN OPB 05/29/16 04:45 06/28/16 04:44 06/10/16 07:57 2 DROPS Solifenacin (Vesicare) 10 mg HS PO 05/29/16 21:00 06/28/16 20:59 06/11/16 20:01 10 MG Thiamine HCl (Vitamin B-1 Tab) 100 mg DAILY PO 05/29/16 09:00 06/28/16 08:59 06/12/16 09:41 100 MG Artificial Tears (Lacri-Lube Oph Oint) 1 appln HS OPB 05/29/16 21:00 06/28/16 20:59 06/11/16 21:18 1 APPLN Bisacodyl (Dulcolax Supp) 10 mg TuTh@0530 [place] 05/29/16 06:15 06/28/16 06:14 05/31/16 05:30 10 MG Bisacodyl (Dulcolax Supp) 10 mg SuMoWeFrSa@2330 [place] 05/30/16 23:30 06/29/16 23:29 06/09/16 22:08 10 MG Amlodipine Besylate (Norvasc Tab) 2.5 mg DAILY PO 05/29/16 09:00 06/28/16 08:59 2/28/17 09:42 2.5 MG Polyethylene (Miralax Powder Packet) 17 gm QPM PO 05/29/16 21:00 06/28/16 20:59 06/11/16 21:18 17 GM Albuterol/ Ipratropium (Duoneb) 3 ml Q6R INH 05/29/16 15:00 06/28/16 14:59 06/12/16 07:38 3 ML Quetiapine Fumarate (seroQUEL TAB) 25 mg HS PO 05/29/16 22:00 06/28/16 21:59 06/11/16 21:15 25 MG Sodium Chloride ([place] Nasal [place]) 2 sprays QID NA 05/30/16 21:00 06/29/16 20:59 06/12/16 09:00 2 SPRAYS Multi-Ingredient Ointment (Eucerin Unscented Cr) 0.25 appln BID PRN EXT 05/30/16 22:00 06/29/16 21:59 06/10/16 08:21 0.25 APPLN Quetiapine Fumarate (seroQUEL TAB) 25 mg TID PRN PO 06/01/16 11:45 07/01/16 11:44 06/01/16 18:18 25 MG Lifitegrast (Xiidra 5% Oph Soln) 1 drop BID OP 06/06/16 21:00 07/06/16 20:59 06/12/16 09:00 1 DROP Enteral Nutritional Formula (Impact 1.0 Nixon) 1,000 ml CONTINUOUS NG 06/08/16 10:15 07/08/16 10:14 06/11/16 21:14 1,000 ML Lansoprazole (Prevacid Solutab) 30 mg BID NG 06/08/16 21:00 07/08/16 20:59 06/12/16 09:00 30 MG Aspirin (Aspirin Chew) 81 mg DAILY NG 06/09/16 09:00 07/09/16 08:59 06/12/16 09:36 81 MG Docusate Sodium (coLACE SYRUP) 100 mg BID NG 06/08/16 21:00 07/08/16 20:59 06/11/16 19:59 100 MG Sterile Water (Tube Feeding Water Flush) 30 ea Q4 NG 06/08/16 12:00 07/08/16 11:59 06/12/16 03:44 30 EA Lorazepam (Ativan Inj) 2 mg Q1H PRN IV 06/08/16 14:15 07/08/16 14:14 Acetaminophen (Tylenol Soln) 650 mg Q4H PRN PO 06/09/16 09:45 07/09/16 09:44 06/10/16 08:21 650 MG Gabapentin (Neurontin) 100 mg QAM NG 06/10/16 09:00 07/09/16 08:59 06/11/16 08:12 100 MG Gabapentin (Neurontin) 200 mg DAILY@1600 NG 06/09/16 16:00 07/08/16 15:59 06/11/16 16:27 200 MG Gabapentin 600 mg 600 mg HS NG 06/09/16 21:00 07/08/16 20:59 06/11/16 22:02 600 MG Tigecycline/ Sodium Chloride (Tygacil Inj/Nss 100ml) 105 ml @ 200 mls/hr Q12@0400,1600 IV 06/11/16 04:00 06/18/16 03:59 06/12/16 03:44 200 MLS/HR Miscellaneous Information 1 ea 1 ea UD N/A 06/11/16 09:42 07/11/16 09:41 Gentamicin Sulfate/Sodium Chloride (Gentamicin Inj/ Nss 100ml) 62.2 ml @ 0 mls/hr Tu@1000 INSTIL 06/12/16 10:00 06/22/16 09:59 06/12/16 09:40 60 MLS/HR Simethicone (Mylicon Chew Tab) 80 mg Q6H PRN PO 06/11/16 23:00 07/11/16 22:59 06/11/16 23:51 80 MG Lorazepam (Ativan Inj) 0.5 mg Q4H PRN IV 06/12/16 04:00 07/12/16 03:59 Insulin Aspart (novoLOG ASPART) SLIDING SCALE G... Q4 SC 06/12/16 12:00 07/12/16 11:59 Objective Vital Signs Date Time Temp Pulse Resp B/P Pulse Ox O2 Delivery O2 Flow Rate FiO2 06/12/16 08:00 90 28 152/68 99 Mechanical Ventilator 30 06/12/16 08:00 99 Mechanical Ventilator 30 06/12/16 08:00 30 2/28/17 07:38 30 06/12/16 06:00 80 20 141/60 99 Mechanical Ventilator 30 06/12/16 05:28 30 06/12/16 04:00 36.5 87 24 152/81 99 Mechanical Ventilator 30 06/12/16 04:00 30 06/12/16 04:00 Mechanical Ventilator 30 06/12/16 02:00 86 20 158/60 100 Mechanical Ventilator 06/12/16 01:42 30 06/12/16 00:01 36.4 78 20 155/71 100 Mechanical Ventilator 06/11/16 23:59 Mechanical Ventilator 30 06/11/16 23:59 30 06/11/16 23:40 30 06/11/16 22:00 77 22 150/79 100 Mechanical Ventilator 06/11/16 20:18 30 06/11/16 20:00 36.6 78 22 153/79 100 Mechanical Ventilator 06/11/16 20:00 30 06/11/16 20:00 100 Mechanical Ventilator 06/11/16 18:11 30 06/11/16 16:11 30 06/11/16 16:10 80 16 100 Mechanical Ventilator 4.0 06/11/16 16:00 36.6 81 25 144/57 99 Mechanical Ventilator 06/11/16 16:00 Mechanical Ventilator 06/11/16 16:00 30 06/11/16 14:00 78 22 148/69 100 Mechanical Ventilator 06/11/16 12:00 30 06/11/16 12:00 78 22 148/69 100 Mechanical Ventilator 06/11/16 12:00 100 Mechanical Ventilator 06/11/16 11:15 30 06/11/16 10:00 86 22 155/70 93 Mechanical Ventilator 30 Physical Exam General Appearance: + mild distress Eyes: normal inspection, sclerae normal ENT: hearing grossly normal Neck: supple, + pertinent finding (tracheostomy, ventilated) Respiratory/Chest: + pertinent finding (continued coarse breath sounds throughout lungs. Very slightly improved) Cardiovascular: regular rate, rhythm Abdomen: normal bowel sounds, + distended (mildly) Extremities: + pertinent finding (quadriplegic) Neurologic/Psychiatric: alert, + depressed affect Skin: normal color Laboratory Results RUN DATE: 06/10/16 [facility] LAB PAGE 1 RUN TIME: 933 Specimen Inquiry PATIENT: CARY WILLSON LOC: ÁLVAROCU U # : [id number] AGE/SX: 71/F ROOM: [facility] REG : 05/28/[address]: Dirk Mckeon M : 1945 BED: 1 DIS : STATUS: ADM IN TLOC: SPEC #: [id number] BRYCE: 06/04/16-1399 STATUS: COMP REQ #: [id number] RECD: [id number] SUBM DR: Dirk Luther MD SOURCE: [facility] WASH ENTR: 06/04/16-[address] [facility] [address]: Darci Corcoran MD [facility]: RT LOW LOB Dirk Mckeon M.D. Cable, Joseph A., DO Kedem, Roy ., MD Shippert, Brian W. , D.OSaba ORDERED: [facility] CUL/SM Procedure Result Verified Site GRAM STAIN Final 06/05/16-3 RESULT MANY POLYS RARE YEAST BRONCH WASH CULTURE Final 06/10/16-34 Organism 1 ACINETOBACTER BAUMANNII/HAEMOL QUANITY MODERATE SENS SENSITIVITY TO FOLLOW NORMAL SUSI SCANT NORMAL SUSI 1. ACINETOBACTER BAUMANNII/HAEMOL Target Route Dose RX AB Cost M.I.C. IQ ------ ----- ------ -- ------ -------- - ------ TRIMET/SULFA S <=2/38 AMPICILLIN/SUL S <=8/4 CEFTAZIDIME S 4 CEFEPIME I 16 GENTAMICIN S <=4 TOBRAMYCIN S <=4 AMIKACIN S <=16 CIPROFLOXACIN R >2 LEVOFLOXACIN R >4 S = SENSITIVE I = INTERMEDIATE R = RESISTANT Item Value Date Time C.difficile Toxin B Gene (PCR) - Final Complete 06/10/16 0400 Stool No C. difficile toxin B gene detected Urine Culture - Preliminary Resulted 06/09/16 1410 Urine,Catheterized Yeast Not Merari Albicans Blood Culture - Preliminary Resulted 06/09/16 1148 Blood NO GROWTH TO DATE. Blood Culture - Preliminary Resulted 06/09/16 1142 Blood NO GROWTH TO DATE. MRSA DNA Surveillance Screen - Final Complete 06/06/16 2241 Nasal Specimen Negative for MRSA by DNA Probe Fungal Smear - Final Resulted 06/04/16 1400 Bronchial Washings Right Lower Lobe Acid Fast Stain - Final Resulted 06/04/16 1400 Bronchial Washings Right Lower Lobe Gram Stain - Final Complete 06/04/16 1400 Bronchial Washings Right Lower Lobe Last 24 Hours Test 06/11/16 12:01 06/11/16 18:02 06/11/16 23:56 06/12/16 05:37 Bedside Glucose 206 mg/dl 249 mg/dl 224 mg/dl White Blood Count 11.54 K/uL Red Blood Count 3.53 M/uL Hemoglobin 10.3 g/dL Hematocrit 33.6 % Mean Corpuscular Volume 95.2 fL Mean Corpuscular Hemoglobin 29.2 pg Mean Corpuscular Hemoglobin Concent 30.7 g/dl Platelet Count 397 K/uL Mean Platelet Volume 10.3 fL Neutrophils (%) (Auto) 88.0 % Lymphocytes (%) (Auto) 5.0 % Monocytes (%) (Auto) 6.2 % Eosinophils (%) (Auto) 0.3 % Basophils (%) (Auto) 0.2 % Neutrophils # (Auto) 10.16 K/uL Lymphocytes # (Auto) 0.58 K/uL Monocytes # (Auto) 0.72 K/uL Eosinophils # (Auto) 0.03 K/uL Basophils # (Auto) 0.02 K/uL RDW Standard Deviation 62.9 fL RDW Coefficient of Variation 18.1 % Immature Granulocyte % (Auto) 0.3 % Immature Granulocyte # (Auto) 0.03 K/uL Sodium Level 143 mmol/L Potassium Level 4.3 mmol/L Chloride Level 106 mmol/L Carbon Dioxide Level 32 mmol/L Anion Gap 5.0 mmol/L Blood Urea Nitrogen 49 mg/dl Creatinine 0.48 mg/dl Est Creatinine Clear Calc Drug Dose 98.3 ml/min Estimated GFR () 116.0 Estimated GFR (Non- 100.1 BUN/Creatinine Ratio 102.8 Random Glucose 263 mg/dl Calcium Level 8.7 mg/dl Phosphorus Level 3.5 mg/dl Magnesium Level 2.1 mg/dl Total Bilirubin 0.3 mg/dl Direct Bilirubin < 0.1 mg/dl Aspartate Amino Transf (AST/SGOT) 4 U/L Alanine Aminotransferase (ALT/SGPT) 11 U/L Alkaline Phosphatase 153 U/L Total Protein 6.6 gm/dl Albumin 1.6 gm/dl Globulin 5.0 gm/dl Albumin/Globulin Ratio 0.3 Procalcitonin 4.09 ng/mL Test 06/12/16 05:39 Bedside Glucose 274 mg/dl Assessment and Plan (1) vent dep Status: Chronic Onset: 10/23/2010 (2) Quadriplegia Status: Chronic Onset: 10/23/2010 (3) Chronic urinary tract infection Status: Chronic Onset: 11/26/2012 (4) Hyperkalemia Status: Acute (5) Aspiration pneumonia Patient with history of recurrent UTI's, possible aspiration pneumonia, and quadriplegia who appears to have had slight improvement since change to Tigecycline. Will continue current antibiotic therapy pending further improvement. Will continue to follow pulmonary recommendations in regards to ventilator. Patient does not appear ready for D/C yet at this time. We will follow. Plan: 1. Continue Tigecycline PROVIDER ADDENDUM: With patient reviewed with Ms. Martinez. Agree with above assessment.
[2016-06-12] MEDS ORDERED: GENTAMICIN INSTIL SCH (10:00)
[2016-06-12] MEDS ORDERED: SODIUM CHLORIDE 0.9% INSTIL SCH (10:00)
--- NOTE | 2016-06-12 10:41 | Critical Care Progress Note ---
Critical Care Progress Note Date of Service Jun 12, 2016. Attending Subjective Continues supportive care. No fever or chills. Vent support is well tolerated. Issues with GI //tube feed tolerance. OBR/Neurogenic bowel program in place. Appreciate Dr. [place] help with her goals/treatment plan. Objective GENERAL : we talked with the cuff down. She is very upset with her situation EYES: No icterus, gaze conjugate. Pupils are equal NOSE: Nasogastric tube in the left nares MOUTH: No lesions or candidiasis. Mucosa is moist. NECK: Supple. Tracheostomy tube with no significant drainage to drainage pads. LUNGS: exchange is adequate, no wheezing HEART: Regular, rate controlled. ABDOMEN: abdomen is less distended No pain EXTREMITIES: No LE edema, pedal pulses intact. No sensation to touch NEURO: Awake and alert. She is unsure of her location Assessment & Plan High quad vent dependent-- 1. Pulmonary--home vent plans in progress 2. GI--will require PEG for comfort moving forward 3. Cardio--volume status ok 4. ID Rx continues. Critical Care Time--45min Consults & Procedures Consultants: Pulmonary: Dr. Mixon/ Dr. Luther Infectious Dz: Juan Procedures: Bronchoscopy Dr. Luther 06/04 Data Medications: Current Inpatient Medications Medications (Trade) Dose Ordered Sig/Tasha Route Start Time Stop Time Status Last Admin Dose Admin Levalbuterol (Xopenex 1.25MG/ 3ML Neb) 1.25 mg Q4H PRN INH 05/28/16 23:00 06/27/16 22:59 Ondansetron HCl (Zofran Inj) 4 mg Q6H PRN IV 05/28/16 23:00 06/27/16 22:59 06/12/16 02:59 4 MG Allopurinol (Zyloprim Tab) 100 mg DAILY PO 05/29/16 09:00 06/28/16 08:59 06/12/16 09:41 100 MG Ascorbic Acid (Vitamin C Tab) 500 mg BID PO 05/29/16 09:00 06/28/16 08:59 06/12/16 09:40 500 MG Dipyridamole/ Aspirin (Aggrenox 200MG/ 25MG Cap) 1 cap BID PO 05/29/16 09:00 06/28/16 08:59 06/12/16 09:39 1 CAP Buspirone HCl (BusPAR TAB) 7.5 mg BID PO 05/29/16 09:00 06/28/16 08:59 06/12/16 09:41 7.5 MG Calcium/Vitamin D (Caltrate Plus Tab) 1 tab BID PO 05/29/16 09:00 06/28/16 08:59 06/12/16 09:40 1 TAB Cholecalciferol (Vitamin D Tab) 1,000 inter.unit BID PO 05/29/16 09:00 06/28/16 08:59 06/12/16 09:42 1,000 INTER.UNIT Clopidogrel Bisulfate (plAVix TAB) 75 mg DAILY PO 05/29/16 09:00 06/28/16 08:59 06/12/16 09:41 75 MG Escitalopram Oxalate (Lexapro Tab) 20 mg QAM PO 05/29/16 09:00 06/28/16 08:59 06/12/16 09:41 20 MG Magnesium Chloride (Slow-Mag Tab) 64 mg BID PO 05/29/16 09:00 06/28/16 08:59 Future Hold 06/06/16 21:31 64 MG Phenazopyridine HCl (Pyridium Tab) 200 mg DAILY PRN PO 05/28/16 23:00 06/27/16 22:59 Pentosan Polysulfate Sodium (Elmiron) 100 mg BID PO 05/29/16 09:00 06/28/16 08:59 06/12/16 09:42 100 MG Artificial Tears (Artificial Tears) 2 drops BID PRN OPB 05/29/16 04:45 06/28/16 04:44 06/10/16 07:57 2 DROPS Solifenacin (Vesicare) 10 mg HS PO 05/29/16 21:00 06/28/16 20:59 06/11/16 20:01 10 MG Thiamine HCl (Vitamin B-1 Tab) 100 mg DAILY PO 05/29/16 09:00 06/28/16 08:59 06/12/16 09:41 100 MG Artificial Tears (Lacri-Lube Oph Oint) 1 appln HS OPB 05/29/16 21:00 06/28/16 20:59 06/11/16 21:18 1 APPLN Bisacodyl (Dulcolax Supp) 10 mg TuTh@0530 [place] 05/29/16 06:15 06/28/16 06:14 05/31/16 05:30 10 MG Bisacodyl (Dulcolax Supp) 10 mg SuMoWeFrSa@2330 [place] 05/30/16 23:30 06/29/16 23:29 06/09/16 22:08 10 MG Amlodipine Besylate (Norvasc Tab) 2.5 mg DAILY PO 05/29/16 09:00 06/28/16 08:59 06/12/16 09:42 2.5 MG Polyethylene (Miralax Powder Packet) 17 gm QPM PO 05/29/16 21:00 06/28/16 20:59 06/11/16 21:18 17 GM Albuterol/ Ipratropium (Duoneb) 3 ml Q6R INH 05/29/16 15:00 06/28/16 14:59 06/12/16 07:38 3 ML Quetiapine Fumarate (seroQUEL TAB) 25 mg HS PO 05/29/16 22:00 06/28/16 21:59 06/11/16 21:15 25 MG Sodium Chloride ([place] Nasal [place]) 2 sprays QID NA 05/30/16 21:00 06/29/16 20:59 06/12/16 09:00 2 SPRAYS Multi-Ingredient Ointment (Eucerin Unscented Cr) 0.25 appln BID PRN EXT 05/30/16 22:00 06/29/16 21:59 06/10/16 08:21 0.25 APPLN Quetiapine Fumarate (seroQUEL TAB) 25 mg TID PRN PO 06/01/16 11:45 07/01/16 11:44 06/01/16 18:18 25 MG Lifitegrast (Xiidra 5% Oph Soln) 1 drop BID OP 06/06/16 21:00 07/06/16 20:59 06/12/16 09:00 1 DROP Enteral Nutritional Formula (Impact 1.0 Nixon) 1,000 ml CONTINUOUS NG 06/08/16 10:15 07/08/16 10:14 06/11/16 21:14 1,000 ML Lansoprazole (Prevacid Solutab) 30 mg BID NG 06/08/16 21:00 07/08/16 20:59 06/12/16 09:00 30 MG Aspirin (Aspirin Chew) 81 mg DAILY NG 06/09/16 09:00 07/09/16 08:59 06/12/16 09:36 81 MG Docusate Sodium (coLACE SYRUP) 100 mg BID NG 06/08/16 21:00 07/08/16 20:59 06/11/16 19:59 100 MG Sterile Water (Tube Feeding Water Flush) 30 ea Q4 NG 06/08/16 12:00 07/08/16 11:59 06/12/16 03:44 30 EA Lorazepam (Ativan Inj) 2 mg Q1H PRN IV 06/08/16 14:15 07/08/16 14:14 Acetaminophen (Tylenol Soln) 650 mg Q4H PRN PO 06/09/16 09:45 07/09/16 09:44 06/10/16 08:21 650 MG Gabapentin (Neurontin) 100 mg QAM NG 06/10/16 09:00 07/09/16 08:59 06/12/16 09:00 100 MG Gabapentin (Neurontin) 200 mg DAILY@1600 NG 06/09/16 16:00 07/08/16 15:59 06/11/16 16:27 200 MG Gabapentin 600 mg 600 mg HS NG 06/09/16 21:00 07/08/16 20:59 06/11/16 22:02 600 MG Tigecycline/ Sodium Chloride (Tygacil Inj/Nss 100ml) 105 ml @ 200 mls/hr Q12@0400,1600 IV 06/11/16 04:00 06/18/16 03:59 06/12/16 03:44 200 MLS/HR Miscellaneous Information 1 ea 1 ea UD N/A 06/11/16 09:42 07/11/16 09:41 Gentamicin Sulfate/Sodium Chloride (Gentamicin Inj/ Nss 100ml) 62.2 ml @ 0 mls/hr Tu@1000 INSTIL 06/12/16 10:00 06/22/16 09:59 06/12/16 09:40 60 MLS/HR Simethicone (Mylicon Chew Tab) 80 mg Q6H PRN PO 06/11/16 23:00 07/11/16 22:59 06/11/16 23:51 80 MG Lorazepam (Ativan Inj) 0.5 mg Q4H PRN IV 06/12/16 04:00 07/12/16 03:59 Insulin Aspart (novoLOG ASPART) SLIDING SCALE G... Q4 SC 06/12/16 12:00 07/12/16 11:59 I & O: 24-Hour Column 06/12/16 07:59 Intake Total 2355 ml Output Total 2250 ml Balance 105 ml Vital Signs: Date Time Temp Pulse Resp B/P Pulse Ox O2 Delivery O2 Flow Rate FiO2 06/12/16 08:00 90 28 152/68 99 Mechanical Ventilator 30 06/12/16 08:00 99 Mechanical Ventilator 30 06/12/16 08:00 30 06/12/16 07:38 30 06/12/16 06:00 80 20 141/60 99 Mechanical Ventilator 30 06/12/16 05:28 30 06/12/16 04:00 36.5 87 24 152/81 99 Mechanical Ventilator 30 06/12/16 04:00 30 06/12/16 04:00 Mechanical Ventilator 30 06/12/16 02:00 86 20 158/60 100 Mechanical Ventilator 30 06/12/16 01:42 30 06/12/16 00:01 36.4 78 20 155/71 100 Mechanical Ventilator 30 06/11/16 23:59 Mechanical Ventilator 30 06/11/16 23:59 30 06/11/16 23:40 30 06/11/16 22:00 77 22 150/79 100 Mechanical Ventilator 30 06/11/16 20:18 30 06/11/16 20:00 36.6 78 22 153/79 100 Mechanical Ventilator 06/11/16 20:00 30 06/11/16 20:00 100 Mechanical Ventilator 30 06/11/16 18:11 30 06/11/16 16:11 30 06/11/16 16:10 80 16 100 Mechanical Ventilator 4.0 06/11/16 16:00 36.6 81 25 144/57 99 Mechanical Ventilator 30 06/11/16 16:00 Mechanical Ventilator 30 06/11/16 16:00 30 06/11/16 14:00 78 22 148/69 100 Mechanical Ventilator 30 06/11/16 12:00 30 06/11/16 12:00 78 22 148/69 100 Mechanical Ventilator 30 06/11/16 12:00 100 Mechanical Ventilator 30 06/11/16 11:15 30 Laboratory Results: Last 24 Hours Test 06/11/16 12:01 06/11/16 18:02 06/11/16 23:56 06/12/16 05:37 Bedside Glucose 206 mg/dl 249 mg/dl 224 mg/dl White Blood Count 11.54 K/uL Red Blood Count 3.53 M/uL Hemoglobin 10.3 g/dL Hematocrit 33.6 % Mean Corpuscular Volume 95.2 fL Mean Corpuscular Hemoglobin 29.2 pg Mean Corpuscular Hemoglobin Concent 30.7 g/dl Platelet Count 397 K/uL Mean Platelet Volume 10.3 fL Neutrophils (%) (Auto) 88.0 % Lymphocytes (%) (Auto) 5.0 % Monocytes (%) (Auto) 6.2 % Eosinophils (%) (Auto) 0.3 % Basophils (%) (Auto) 0.2 % Neutrophils # (Auto) 10.16 K/uL Lymphocytes # (Auto) 0.58 K/uL Monocytes # (Auto) 0.72 K/uL Eosinophils # (Auto) 0.03 K/uL Basophils # (Auto) 0.02 K/uL RDW Standard Deviation 62.9 fL RDW Coefficient of Variation 18.1 % Immature Granulocyte % (Auto) 0.3 % Immature Granulocyte # (Auto) 0.03 K/uL Sodium Level 143 mmol/L Potassium Level 4.3 mmol/L Chloride Level 106 mmol/L Carbon Dioxide Level 32 mmol/L Anion Gap 5.0 mmol/L Blood Urea Nitrogen 49 mg/dl Creatinine 0.48 mg/dl Est Creatinine Clear Calc Drug Dose 98.3 ml/min Estimated GFR () 116.0 Estimated GFR (Non- 100.1 BUN/Creatinine Ratio 102.8 Random Glucose 263 mg/dl Calcium Level 8.7 mg/dl Phosphorus Level 3.5 mg/dl Magnesium Level 2.1 mg/dl Total Bilirubin 0.3 mg/dl Direct Bilirubin < 0.1 mg/dl Aspartate Amino Transf (AST/SGOT) 4 U/L Alanine Aminotransferase (ALT/SGPT) 11 U/L Alkaline Phosphatase 153 U/L Total Protein 6.6 gm/dl Albumin 1.6 gm/dl Globulin 5.0 gm/dl Albumin/Globulin Ratio 0.3 Procalcitonin 4.09 ng/mL Test 06/12/16 05:39 Bedside Glucose 274 mg/dl
--- NOTE | 2016-06-12 11:12 | Pharmacy Progress Note ---
Glycemic Control: Progress Nt Date of Service Jun 12, 2016. Scope Glycemic Pharmacist consulted by Yenny REED on 06/11/16 for glycemic control and to write orders per [facility] inpatient glycemic control protocol. Objective Accuchecks BSG (last 24hrs): Test 06/11/16 12:01 06/11/16 18:02 06/11/16 23:56 06/12/16 05:37 Bedside Glucose 206 mg/dl (70-90) 249 mg/dl (70-90) 224 mg/dl (70-90) Random Glucose 263 mg/dl (70-99) Test 06/12/16 05:39 Bedside Glucose 274 mg/dl (70-90) Laboratory Data (last 24hrs) Test 06/12/16 05:37 Anion Gap 5.0 mmol/L BUN/Creatinine Ratio 102.8 Blood Urea Nitrogen 49 mg/dl Creatinine 0.48 mg/dl Potassium Level 4.3 mmol/L Sodium Level 143 mmol/L White Blood Count 11.54 K/uL Red Blood Count 3.53 M/uL Hemoglobin 10.3 g/dL Hematocrit 33.6 % Mean Corpuscular Volume 95.2 fL Mean Corpuscular Hemoglobin 29.2 pg Mean Corpuscular Hemoglobin Concent 30.7 g/dl Platelet Count 397 K/uL Mean Platelet Volume 10.3 fL Neutrophils (%) (Auto) 88.0 % Lymphocytes (%) (Auto) 5.0 % Monocytes (%) (Auto) 6.2 % Eosinophils (%) (Auto) 0.3 % Basophils (%) (Auto) 0.2 % Neutrophils # (Auto) 10.16 K/uL Lymphocytes # (Auto) 0.58 K/uL Monocytes # (Auto) 0.72 K/uL Eosinophils # (Auto) 0.03 K/uL Basophils # (Auto) 0.02 K/uL HbA1c: Test 05/29/16 06:45 Hemoglobin A1c 6.0 % (4.5-5.6) H Recent Pertinent Medications Outpatient Anti-diabetic Regimen: * Novolog per sliding scale * A1c = 6 % 05/29/16 The patient is currently receiving: * Basal insulin: None * Correctional Insulin: Novolog Correction per scale Q 6 hours Goal Range: Low 120 mg/dL - High 160 mg/dL Correction Factor: 35 mg/dL/unit * Prandial insulin: Per carb ratio of 1 unit per ~12 grams CHO consumed -1 unit for Impact @20cc/hr, 3 units for Impact @40cc/hr, 4 units for Impact @60cc/hr, 5 units for Impact @70cc/hr * Oral Agents: None Risk Factors for Insulin Resistance: * Infection: on Tigecycline per ID recs for 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 * Diet: Tiffanie has been on hold since 0400 today * Mechanical Ventilation: Yes Assessment & Plan ASSESSMENT: 06/11/16 * Glycemic control deteriorated as tube feeds were advanced to goal * She currently has orders for correctional insulin only, will add a carb ratio in order to proactively cover CHO administration * Will not add basal insulin at this time as she did not require basal insulin [employer], most recent A1c was 6.0, likely had adequate control with SSI alone [employer] 06/12/16 * Tube feeds ran until 0400 this AM and then were placed on hold due to patient nausea, bloating - no plans to restart tube feeds at this time * Despite adding prandial insulin to cover carbs in tube feeds yesterday BSGs did not drop to goal. If tube feeds are restarted she will likely require a larger prandial insulin dose (a CR of 1:12 was not adequate) * Fasting BSG elevated this AM, however feeds have only been on hold since 0400. I would expect that BSG will begin to trend down as it did prior this admission when she was not receiving tube feeds. No basal at this time. PLAN FOR INPATIENT GLYCEMIC CONTROL: * No basal insulin at this time * Changing BSG frequency to Q 4 hours to allow for more correctional insulin over the next 24 hrs * Changing correction factor to 30 mg/dl/unit * Adding carb ratio of 1 unit per ~9 grams CHO consumed over a 4 hr time window * for Impact @20cc/hr, give 1 unit * for Impact @40cc/hr, give 3 units * for Impact @60cc/hr, give 4 units * for Impact @70cc/hr, give 5 units * Continuing goal range of Low 120 mg/dL - High 160 mg/dL * Please note that the plan above was derived based on current level of insulin resistance and hospital stress. These recommendations are appropriate for inpatient admission only. Plan of care upon discharge will need to be reassessed to avoid potential outpatient hypo/hyperglycemia. Thank you.
[2016-06-12 13:57] LABS: ISTAT ALLEN TEST Pass; ISTAT ARTERIAL BLOOD GAS HCO3 29 meq/L (19-24); ISTAT ARTERIAL BLOOD GAS PCO2 59 mmHg (35-46); ISTAT ARTERIAL BLOOD GAS PO2 55 mmHg (80-95); ISTAT CARBON DIOXIDE 31 mEq/l (24-31); ISTAT DELIVERY SYSTEM Ventilator; ISTAT FIO2 30 %; ISTAT PEEP 5; ISTAT RATE 20; ISTAT SITE L Radial; VE 17.9; Vt 550
--- NOTE | 2016-06-12 13:59 | DIAGNOSTIC IMAGING REPORT ---
CHEST ONE VIEW PORTABLE CLINICAL HISTORY: dyspnea dyspnea COMPARISON STUDY: 06/10/2016 FINDINGS: Findings of diffuse interstitial and parenchymal prominence is essentially unchanged. There Is a slight degree of increased consolidative change left lung base. Left hemidiaphragm medially is not well seen. Tracheostomy tube is in good position. Various catheters in the superior vena cava. Nasogastric tube is within the proximal to mid stomach. IMPRESSION: Subtle increase in consolidative change left base. All remaining components of the study are unchanged Electronically signed by: Pollo Sultana M.D. 06/12/2016 1:58 PM Dictated Date/Time: 06/12/2016 1:57 PM
[2016-06-12] MEDS: SOLIFENACIN 10 MG TAB PO SCH (19:53)
[2016-06-12] MEDS: POLYETHYLENE (MIRALAX) 17 GM PACK PO SCH (21:00)
[2016-06-12] MEDS: ARTIFICIAL TEARS OP OINT 3.5 GM TUBE OPB SCH (21:23)
[2016-06-12] MEDS: QUETIAPINE FUMARATE 25 MG TAB PO SCH (22:36)
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
[2016-06-13] VITALS (11 sets, daily range): BP systolic 119–167; BP diastolic 62–89; PULSE 70–105; TEMP 36.4–36.6; O2SAT 92–100
[2016-06-13] MEDS: INSULIN ASPART 100 UNITS/ML 3 ML PEN SC SCH ×5 (01:39→23:45)
[2016-06-13] MEDS: ALBUT/IPRATROP 3MG/0.5MG NEB 3 ML VIAL INH SCH ×4 (01:47→19:10)
[2016-06-13] MEDS: TIGECYCLINE IV SCH ×2 (03:45→16:00)
[2016-06-13] MEDS: SODIUM CHLORIDE 0.9% IV SCH ×2 (03:45→16:00)
[2016-06-13] MEDS: TUBE FEEDING WATER FLUSH NG SCH ×7 (03:45→23:37)
[2016-06-13 06:20] LABS: BASO % 0.2 %; BASO ABS # 0.03 K/uL (0-0.2); COMPLETE YES; EOS % 0.5 %; HEMATOCRIT 33.1 % (37-47); IG% 0.2 %; LYMPH % 9.9 %; LYMPH ABS # 1.19 K/uL (1.2-3.4); MEAN CORPUSCULAR HGB CONC 30.8 g/dl (32-36); MEAN PLATELET VOLUME 9.9 fL (7.4-10.4); MONO % 7.2 %; PLATELET COUNT 396 K/uL (130-400); RED BLOOD COUNT 3.52 M/uL (4.2-5.4); WHITE BLOOD COUNT 12.03 K/uL (4.8-10.8)
[2016-06-13] MEDS: LORAZEPAM 2 MG/ML 1 ML VIAL IV PRN ×2 (06:28→15:29)
[2016-06-13 06:58] LABS: BUN/CREATININE RATIO 88.2 (10-20); CALCIUM 8.7 mg/dl (8.5-10.1); CREATININE 0.53 mg/dl (0.60-1.20); MAGNESIUM 2.1 mg/dl (1.8-2.4); POTASSIUM 3.7 mmol/L (3.5-5.1)
[2016-06-13 07:00] LABS: ALB/GLOB RATIO 0.3 (0.9-2); PHOSPHORUS 3.5 mg/dl (2.5-4.9)
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
[2016-06-13] MEDS: PENTOSAN POLYSULFATE SODIUM 100 MG CAP PO SCH ×2 (09:00→19:43)
[2016-06-13] MEDS: DOCUSATE SODIUM 100 MG/10 ML UDC NG SCH ×2 (09:00→19:41)
[2016-06-13] MEDS: AMLODIPINE BESYLATE 5 MG TAB PO SCH (09:00)
[2016-06-13] MEDS: LANSOPRAZOLE SOLUTAB 30 MG NG SCH ×2 (09:00→19:42)
[2016-06-13] MEDS: CLOPIDOGREL BISULFATE 75 MG TAB PO SCH (09:00)
[2016-06-13] MEDS: SODIUM CHLORIDE 0.65% NA SOLN 45 ML (OCEAN) SCH ×4 (09:00→19:48)
[2016-06-13] MEDS: ASCORBIC ACID 500 MG TAB PO SCH ×2 (09:00→19:45)
[2016-06-13] MEDS: GABAPENTIN 250 MG/5 ML 470 ML BTL NG SCH ×3 (09:00→19:41)
[2016-06-13] MEDS: ASPIRIN 81 MG CHEW NG SCH (09:00)
[2016-06-13] MEDS: BusPIRone 15 MG TAB PO SCH ×2 (09:00→19:43)
[2016-06-13] MEDS: CALCIUM 600MG + VIT D 400 IU TAB PO SCH ×2 (09:00→19:43)
[2016-06-13] MEDS: LIFITEGRAST 5% OP SCH ×2 (09:00→19:47)
[2016-06-13] MEDS: DIPYRIDAMOLE/ASPIRIN CAP PO SCH ×2 (09:00→19:42)
[2016-06-13] MEDS: CHOLECALCIFEROL 1000 INTER.UNIT TAB PO SCH ×2 (09:00→19:45)
[2016-06-13] MEDS: THIAMINE HCL 100 MG TAB PO SCH (09:00)
[2016-06-13] MEDS: ESCITALOPRAM OXALATE 20 MG TAB PO SCH (09:00)
[2016-06-13] MEDS: ALLOPURINOL 100 MG TAB PO SCH (09:00)
--- NOTE | 2016-06-13 09:26 | PULMONARY PROGRESS NOTE ---
DATE: 06/13/2016 DATE: 06/13/2016. SUBJECTIVE: The patient is a bit sedated with Ativan and is comfortable. Her bedside 24-hour nurse states she had a fairly good night, although she had some complaints of shortness of breath earlier this morning. According to nurses' notes from the Intensive Care Unit she was resting by 0400. She appeared anxious and fearful of midnight telling daughter she was afraid to go to sleep, emotional support was given throughout the night. She seemed to do fairly well. Her sputum is scant. She is tolerating the ventilator support well. She is sitting up at about 60 degrees. MEDICATIONS: Reviewed. PHYSICAL EXAMINATION: VITAL SIGNS: Stable. Blood pressure 132/67, oxygen saturations 100% to 97% on 30% FIO2 on the ventilator. Her min. ventilation is 10.7 liters. I\&\O 1408 and 1650 in. Weight 72.1 kilograms, which is stable. Again, medications reviewed. HEAD, EYES, EARS, NOSE, AND THROAT: Posterior pharynx is unremarkable. There is no thrush noted. Nose exam unremarkable. No tenderness noted over the sinuses. Feeding tube is in the left naris. Trach site looks good. No subcutaneous emphysema is noted. She has minimal ability to expand her thorax with some minimal shoulder shrug. She does have abdominal distention, more protuberance than distention which compromised her respiratory status as well, especially when she is sitting up at 60 degrees. HEART: Regular rate and rhythm. Second heart sound I thought was slightly accentuated. No murmurs are heard. LUNGS: Revealed decreased breath sounds bilaterally. No fremitus is noted. Few crackles at the right base are noted. The abdomen is soft and protuberant. Bowel sounds are good. She has no cyanosis or clubbing. She has foot drop with shiny type edema of her feet. Chest x-ray yesterday revealed consolidative process probably atelectasis at the left base. It is difficult to see the left hemidiaphragm. LABORATORY DATA: White count 12.03, hemoglobin 10.2, hematocrit 33% with 82% segmented neutrophils and 10% lymphocytes. PRP is stable with a BUN of 47, creatinine of 0.5. Liver function studies are normal with significant hypoalbuminemia noted as well. Hepatitis C antibody is negative. Stool for C. diff is negative. IMPRESSION: 1. Chronic respiratory failure secondary to chest cage dysfunction from C-spine fracture, ventilator dependent. From the ventilator standpoint, she is stable. 2. Left lower lobe infiltrate. Mostly this is probably atelectasis but it certainly could be resolving pneumonia as well. She is tolerating tigecycline and gentamicin instillation well. RECOMMENDATIONS: 1. Continue with her present medications. She may benefit from thiamine 100 mg IM x1. 2. I would suggest a jejunostomy tube may help to reduce the risk of aspiration. 3. Good DVT prophylaxis. From a pulmonary standpoint she is stable. MTDD
[2016-06-13] MEDS ORDERED: SODIUM CHLORIDE 0.9% 1000ML 1,000 ML IV ONE (09:30)
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
--- NOTE | 2016-06-13 10:35 | DIAGNOSTIC IMAGING REPORT ---
KUB CLINICAL HISTORY: abdominal distention COMPARISON STUDY: 06/10/2016 FINDINGS: The study is limited from a technical standpoint. A nasogastric tube is visualized. There is a spinal catheter present. There is no conventional radiographic evidence of bowel obstruction. IMPRESSION: Portable supine study. No evidence of bowel obstruction on this AP supine study Electronically signed by: Viktor Whitfield M.D. 06/13/2016 10:34 AM Dictated Date/Time: 06/13/2016 10:33 AM
--- NOTE | 2016-06-13 11:45 | Pharmacy Progress Note ---
Glycemic Control: Progress Nt Date of Service Jun 13, 2016. Scope Glycemic Pharmacist consulted by Yenny REED on 06/11/16 for glycemic control and to write orders per [facility] inpatient glycemic control protocol. Objective Accuchecks BSG (last 24hrs): Test 06/12/16 12:12 06/12/16 17:01 06/12/16 19:48 06/13/16 01:32 Bedside Glucose 166 mg/dl (70-90) 180 mg/dl (70-90) 158 mg/dl (70-90) 172 mg/dl (70-90) Test 06/13/16 03:48 06/13/16 05:53 Bedside Glucose 161 mg/dl (70-90) Random Glucose 148 mg/dl (70-99) Laboratory Data (last 24hrs) Test 06/13/16 05:53 Anion Gap 9.0 mmol/L BUN/Creatinine Ratio 88.2 Blood Urea Nitrogen 47 mg/dl Creatinine 0.53 mg/dl Potassium Level 3.7 mmol/L Sodium Level 145 mmol/L White Blood Count 12.03 K/uL Red Blood Count 3.52 M/uL Hemoglobin 10.2 g/dL Hematocrit 33.1 % Mean Corpuscular Volume 94.0 fL Mean Corpuscular Hemoglobin 29.0 pg Mean Corpuscular Hemoglobin Concent 30.8 g/dl Platelet Count 396 K/uL Mean Platelet Volume 9.9 fL Neutrophils (%) (Auto) 82.0 % Lymphocytes (%) (Auto) 9.9 % Monocytes (%) (Auto) 7.2 % Eosinophils (%) (Auto) 0.5 % Basophils (%) (Auto) 0.2 % Neutrophils # (Auto) 9.85 K/uL Lymphocytes # (Auto) 1.19 K/uL Monocytes # (Auto) 0.87 K/uL Eosinophils # (Auto) 0.06 K/uL Basophils # (Auto) 0.03 K/uL HbA1c: Test 05/29/16 06:45 Hemoglobin A1c 6.0 % (4.5-5.6) H Recent Pertinent Medications Outpatient Anti-diabetic Regimen: * Novolog per sliding scale * A1c = 6 % 05/29/16 The patient is currently receiving: * Basal insulin: None * Correctional Insulin: Novolog Correction per scale Q 4 hours Goal Range: Low 120 mg/dL - High 160 mg/dL Correction Factor: 35 mg/dL/unit * Prandial insulin: Per carb ratio of 1 unit per ~9 grams CHO consumed -1 unit for Tiffanie @20cc/hr, 3 units for Impact @40cc/hr, 4 units for Impact @60cc/hr, 5 units for Impact @70cc/hr * Oral Agents: None Risk Factors for Insulin Resistance: * Infection: on Tigecycline per ID recs for 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 * Diet: Tiffanie has been on hold since 0400 06/12/16 * Mechanical Ventilation: Yes Assessment & Plan ASSESSMENT: 06/11/16 * Glycemic control deteriorated as tube feeds were advanced to goal * She currently has orders for correctional insulin only, will add a carb ratio in order to proactively cover CHO administration * Will not add basal insulin at this time as she did not require basal insulin 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 If tube feeds are restarted she will likely require a larger prandial insulin dose (a CR of 1:12 was not adequate) * Fasting BSG elevated this AM, however feeds have only been on hold since 0400. I would expect that BSG will begin to trend down as it did prior this admission when she was not receiving tube feeds. No basal at this time 06/13/16 * Glycemic control has improved over last 24 hrs; BSGs have ranged 148-180; all at goal; all BSGs reflective of fasting state * No basal insulin required at this time * GI consulted for PEG placement, uncertain when this may be done * Will change BSG frequency back to Q 6 hrs at this time and adjust CR should PEG be placed in the next 24 hrs and TF's restarted PLAN FOR INPATIENT GLYCEMIC CONTROL: * No basal insulin at this time * Changing BSG frequency back to Q 6 hours now that control has improved * Continuing correction factor of 30 mg/dl/unit * Continue carb ratio of 1 unit per ~9 grams CHO consumed over a 6 hr time window * for Tiffanie @20cc/hr, give 2 unit * for Impact @40cc/hr, give 4 units * for Impact @60cc/hr, give 6 units * for Impact @70cc/hr, give 7 units * Continuing goal range of Low 120 mg/dL - High 160 mg/dL * Please note that the plan above was derived based on current level of insulin resistance and hospital stress. These recommendations are appropriate for inpatient admission only. Plan of care upon discharge will need to be reassessed to avoid potential outpatient hypo/hyperglycemia. Thank you.
[2016-06-13] MEDS ORDERED: MoRPHine SULFATE 2 MG/ML CARP ONE (14:31)
--- NOTE | 2016-06-13 14:55 | DIAGNOSTIC IMAGING REPORT ---
CHEST ONE VIEW PORTABLE CLINICAL HISTORY: HYPOXIA dyspnea COMPARISON STUDY: 06/12/2016 FINDINGS: Mildly progressive consolidative change left lung base. Diffuse bilateral parenchymal and interstitial prominence is similar. Potential developing and or progressive infiltrate right base. Tracheostomy tube in good position. IMPRESSION: Mildly progressive bibasilar atelectatic and infiltrative changes. Electronically signed by: Pollo Sultana M.D. 06/13/2016 2:54 PM Dictated Date/Time: 06/13/2016 2:53 PM
[2016-06-13] MEDS ORDERED: FUROSEMIDE INJ 40 MG in SYRINGE 0 ML IV ONE (15:30)
[2016-06-13] MEDS ORDERED: LIDOCAINE HCL 2% 2 ML VIAL (20MG/ML) ONE (15:55)
[2016-06-13] MEDS ORDERED: PROPOFOL IV EMULSION 10 MG/ML 20 ML VIAL IV ONE (15:55)
--- NOTE | 2016-06-13 16:32 | GI REPORT ---
Procedure Date: 06/13/2016 4:06 PM Procedure: Upper GI endoscopy Indications: Dysphagia Medicines: Monitored Anesthesia Care Complications: No immediate complications. Estimated Blood Loss: Estimated blood loss: none. Procedure: Pre-Anesthesia Assessment: - Prior to the procedure, a History and Physical was performed, and patient medications and allergies were reviewed. The patient's tolerance of previous anesthesia was also reviewed. The risks and benefits of the procedure and the sedation options and risks were discussed with the patient. All questions were answered, and informed consent was obtained. Prior Anticoagulants: The patient last took aspirin 1 day and Plavix (clopidogrel) 1 day prior to the procedure. ASA Grade Assessment: IV - A patient with severe systemic disease that is a constant threat to life. After reviewing the risks and benefits, the patient was deemed in satisfactory condition to undergo the procedure. After obtaining informed consent, the endoscope was passed under direct vision. Throughout the procedure, the patient's blood pressure, pulse, and oxygen saturations were monitored continuously. The scope was introduced through the mouth, and advanced to the second part of duodenum. The upper GI endoscopy was accomplished without difficulty. The patient tolerated the procedure well. Findings: The esophagus was normal. Placement of an externally removable PEG with no T-fasteners was successfully completed. The external bumper was at the 2.0 cm marking on the tube. The examined duodenum was normal. Impression: - Normal esophagus. - Normal examined duodenum. - An externally removable PEG placement was successfully completed. - No specimens collected. Recommendation: - Return patient to ICU for ongoing care. - Please follow the post-PEG recommendations including: Nutrition consult for formula and volume and start using PEG today. - Continue present medications. Sajan Jackson DO 06/13/2016 4:32:19 PM This report has been signed electronically. Note Initiated On: 06/13/2016 4:06 PM I attest to the content of the Intraoperative Record and orders documented therein, exceptions below
--- NOTE | 2016-06-13 16:58 | Anesthesiology Progress Note ---
Anesthesia Post Op Note Date & Time Jun 13, 2016 at 16:56 Vital Signs Pain Intensity: 0 Vital Signs Past 12 Hours Date Time Temp Pulse Resp B/P Pulse Ox O2 Delivery O2 Flow Rate FiO2 06/13/16 16:45 97 18 123/54 99 Mechanical Ventilator 100 Trach Collar 06/13/16 16:30 95 22 122/44 94 Mechanical Ventilator 100 Trach Collar 06/13/16 16:02 36.6 06/13/16 15:59 82 22 131/60 99 Mechanical Ventilator 100 Trach Collar 06/13/16 13:57 30 06/13/16 12:00 74 20 160/84 99 Mechanical Ventilator 30 06/13/16 12:00 99 Mechanical Ventilator 30 06/13/16 12:00 30 06/13/16 11:32 30 06/13/16 10:00 79 20 147/78 97 Mechanical Ventilator 30 06/13/16 08:00 Mechanical Ventilator 30 06/13/16 08:00 70 22 130/66 99 Mechanical Ventilator 30 06/13/16 08:00 97 Mechanical Ventilator 30 06/13/16 08:00 30 06/13/16 07:58 30 06/13/16 06:00 74 21 132/67 97 Mechanical Ventilator 06/13/16 05:50 30 Notes Hydration State: stable & adequate Anesthetic Complications: no major complications apparent Patient was transferred back to ICU in stable condition, ventilated manually by respiratory therapist, switched back to ventilator in ICU.
[2016-06-13] MEDS ORDERED: NURSING VERBAL MED ORDER ONE (17:15)
[2016-06-13] MEDS ORDERED: IMPACT LIQ 1000 ML BAG PEG SCH (17:15)
[2016-06-13] MEDS: POLYETHYLENE (MIRALAX) 17 GM PACK PO SCH (19:44)
[2016-06-13] MEDS: QUETIAPINE FUMARATE 25 MG TAB PO SCH (19:44)
[2016-06-13] MEDS: SOLIFENACIN 10 MG TAB PO SCH (19:44)
[2016-06-13] MEDS: ARTIFICIAL TEARS OP OINT 3.5 GM TUBE OPB SCH (19:47)
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
[2016-06-13] MEDS: BISACODYL 10 MG SUPP PR SCH (22:02)
[2016-06-14] VITALS (11 sets, daily range): BP systolic 98–142; BP diastolic 43–73; PULSE 60–88; TEMP 36.5–36.7; O2SAT 95–98
[2016-06-14] MEDS: ALBUT/IPRATROP 3MG/0.5MG NEB 3 ML VIAL INH SCH ×3 (01:50→19:06)
[2016-06-14] MEDS: SODIUM CHLORIDE 0.9% IV SCH ×2 (04:06→16:55)
[2016-06-14] MEDS: TIGECYCLINE IV SCH ×2 (04:06→16:55)
[2016-06-14] MEDS: TUBE FEEDING WATER FLUSH NG SCH ×5 (04:06→20:00)
[2016-06-14] MEDS: BISACODYL 10 MG SUPP PR SCH (04:07)
[2016-06-14] MEDS: INSULIN ASPART 100 UNITS/ML 3 ML PEN SC SCH ×3 (06:21→17:08)
[2016-06-14 06:25] LABS: CALCIUM 8.3 mg/dl (8.5-10.1); CREATININE 0.57 mg/dl (0.60-1.20); MAGNESIUM 2.2 mg/dl (1.8-2.4); POTASSIUM 3.5 mmol/L (3.5-5.1)
[2016-06-14 06:30] LABS: ALB/GLOB RATIO 0.3 (0.9-2); PHOSPHORUS 4.1 mg/dl (2.5-4.9)
[2016-06-14 06:47] LABS: BASO % 0.2 %; BASO ABS # 0.02 K/uL (0-0.2); COMPLETE YES; EOS % 0.5 %; HEMATOCRIT 32.7 % (37-47); IG% 0.3 %; LYMPH % 11.7 %; MEAN CELL VOLUME 92.6 fL (80-100); MEAN CORPUSCULAR HEMOGLOBIN 28.6 pg (25-34); MEAN CORPUSCULAR HGB CONC 30.9 g/dl (32-36); MONO % 6.7 %; NEUT % 80.6 %; PLATELET COUNT 436 K/uL (130-400); RED BLOOD COUNT 3.53 M/uL (4.2-5.4); WHITE BLOOD COUNT 11.12 K/uL (4.8-10.8)
[2016-06-14] MEDS: LANSOPRAZOLE SOLUTAB 30 MG NG SCH ×2 (08:29→20:35)
[2016-06-14] MEDS: CHOLECALCIFEROL 1000 INTER.UNIT TAB PO SCH ×2 (08:29→20:37)
[2016-06-14] MEDS: DOCUSATE SODIUM 100 MG/10 ML UDC NG SCH ×2 (08:29→20:25)
[2016-06-14] MEDS: ASCORBIC ACID 500 MG TAB PO SCH ×2 (08:29→20:33)
[2016-06-14] MEDS: THIAMINE HCL 100 MG TAB PO SCH (08:29)
[2016-06-14] MEDS: ALLOPURINOL 100 MG TAB PO SCH (08:29)
[2016-06-14] MEDS: DIPYRIDAMOLE/ASPIRIN CAP PO SCH ×2 (08:29→20:34)
[2016-06-14] MEDS: BusPIRone 15 MG TAB PO SCH ×2 (08:29→20:33)
[2016-06-14] MEDS: CLOPIDOGREL BISULFATE 75 MG TAB PO SCH (08:30)
[2016-06-14] MEDS: PENTOSAN POLYSULFATE SODIUM 100 MG CAP PO SCH (08:30)
[2016-06-14] MEDS: ASPIRIN 81 MG CHEW NG SCH (08:30)
[2016-06-14] MEDS: AMLODIPINE BESYLATE 5 MG TAB PO SCH (08:30)
[2016-06-14] MEDS: ESCITALOPRAM OXALATE 20 MG TAB PO SCH (08:30)
[2016-06-14] MEDS: CALCIUM 600MG + VIT D 400 IU TAB PO SCH ×2 (08:30→20:37)
[2016-06-14] MEDS: GABAPENTIN 250 MG/5 ML 470 ML BTL NG SCH ×3 (08:36→20:32)
[2016-06-14] MEDS: SODIUM CHLORIDE 0.65% NA SOLN 45 ML (OCEAN) SCH ×4 (09:00→20:41)
[2016-06-14] MEDS: LIFITEGRAST 5% OP SCH ×2 (09:00→20:41)
--- NOTE | 2016-06-14 09:08 | Critical Care Progress Note ---
Critical Care Progress Note Date of Service Jun 14, 2016. Attending Subjective She got her PEG yesterday. The tube feeds are slowly advancing. Pulmonary status is stable. Respiratory notes a slow leak which may represent a need for a new cuffed trach tube. Will check with who usually does this change. She does have a history of some stenosis and may require some additional measures for a change. The disposition is in progress. She is on Day 3 of antibiotics. Oxygenation is adequate but certainly not where she was. Overall her condition remains globally poor. Objective GENERAL : she appears more comfortable AM today. Vent is synchronous and acceptable. EYES: No icterus, gaze conjugate. Pupils are equal NOSE: NG tube is out MOUTH: no lesions NECK: Supple. Tracheostomy tube with no significant drainage to drainage pads. LUNGS: exchange is ok. Base remains diminished HEART: Regular, rate controlled. ABDOMEN: some abdominal distention noted. BS are acceptable. EXTREMITIES: No LE edema, pedal pulses intact. No sensation to touch NEURO: Awake and alert. She is unsure of her location Assessment & Plan Chronic respiratory failure/C3 quad. Pneumonia-- 1. Respiratory--Will look to replace the tracheostomy tube. Continues with current vent settings 2. Cardio--will track volume 3. GI--tube feeds to advance as tolerated--the albumin noted 4. F/E/N--track-- Critical Care Time 45min. Consults & Procedures Consultants: Pulmonary: Dr. Mixon/ Dr. Luther Infectious Dz: Ms. Martinez Procedures: Bronchoscopy Dr. Luther 06/04 Data Medications: Current Inpatient Medications Medications (Trade) Dose Ordered Sig/Tasha Route Start Time Stop Time Status Last Admin Dose Admin Levalbuterol (Xopenex 1.25MG/ 3ML Neb) 1.25 mg Q4H PRN INH 05/28/16 23:00 06/27/16 22:59 Ondansetron HCl (Zofran Inj) 4 mg Q6H PRN IV 05/28/16 23:00 06/27/16 22:59 06/12/16 20:01 4 MG Allopurinol (Zyloprim Tab) 100 mg DAILY PO 05/29/16 09:00 06/28/16 08:59 06/14/16 08:29 100 MG Ascorbic Acid (Vitamin C Tab) 500 mg BID PO 05/29/16 09:00 06/28/16 08:59 06/14/16 08:29 500 MG Dipyridamole/ Aspirin (Aggrenox 200MG/ 25MG Cap) 1 cap BID PO 05/29/16 09:00 06/28/16 08:59 06/14/16 08:29 1 CAP Buspirone HCl (BusPAR TAB) 7.5 mg BID PO 05/29/16 09:00 06/28/16 08:59 06/14/16 08:29 7.5 MG Calcium/Vitamin D (Caltrate Plus Tab) 1 tab BID PO 05/29/16 09:00 06/28/16 08:59 06/14/16 08:30 1 TAB Cholecalciferol (Vitamin D Tab) 1,000 inter.unit BID PO 05/29/16 09:00 06/28/16 08:59 06/14/16 08:29 1,000 INTER.UNIT Clopidogrel Bisulfate (plAVix TAB) 75 mg DAILY PO 05/29/16 09:00 06/28/16 08:59 06/14/16 08:30 75 MG Escitalopram Oxalate (Lexapro Tab) 20 mg QAM PO 05/29/16 09:00 06/28/16 08:59 06/14/16 08:30 20 MG Magnesium Chloride (Slow-Mag Tab) 64 mg BID PO 05/29/16 09:00 06/28/16 08:59 Future Hold 06/06/16 21:31 64 MG Phenazopyridine HCl (Pyridium Tab) 200 mg DAILY PRN PO 05/28/16 23:00 06/27/16 22:59 Pentosan Polysulfate Sodium (Elmiron) 100 mg BID PO 05/29/16 09:00 06/28/16 08:59 06/14/16 08:30 100 MG Artificial Tears (Artificial Tears) 2 drops BID PRN OPB 05/29/16 04:45 06/28/16 04:44 06/10/16 07:57 2 DROPS Solifenacin (Vesicare) 10 mg HS PO 05/29/16 21:00 06/28/16 20:59 06/13/16 19:44 10 MG Thiamine HCl (Vitamin B-1 Tab) 100 mg DAILY PO 05/29/16 09:00 06/28/16 08:59 06/14/16 08:29 100 MG Artificial Tears (Lacri-Lube Oph Oint) 1 appln HS OPB 05/29/16 21:00 06/28/16 20:59 06/13/16 19:47 1 APPLN Bisacodyl (Dulcolax Supp) 10 mg TuTh@0530 DE 05/29/16 06:15 06/28/16 06:14 05/31/16 05:30 10 MG Bisacodyl (Dulcolax Supp) 10 mg SuMoWeFrSa@2330 DE 05/30/16 23:30 06/29/16 23:29 06/09/16 22:08 10 MG Amlodipine Besylate (Norvasc Tab) 2.5 mg DAILY PO 05/29/16 09:00 06/28/16 08:59 06/14/16 08:30 2.5 MG Polyethylene (Miralax Powder Packet) 17 gm QPM PO 05/29/16 21:00 06/28/16 20:59 06/13/16 19:44 17 GM Albuterol/ Ipratropium (Duoneb) 3 ml Q6R INH 05/29/16 15:00 06/28/16 14:59 06/14/16 07:22 3 ML Quetiapine Fumarate (seroQUEL TAB) 25 mg HS PO 05/29/16 22:00 06/28/16 21:59 06/13/16 19:44 25 MG Sodium Chloride ([place] Nasal [place]) 2 sprays QID NA 05/30/16 21:00 06/29/16 20:59 06/13/16 19:48 2 SPRAYS Multi-Ingredient Ointment (Eucerin Unscented Cr) 0.25 appln BID PRN EXT 05/30/16 22:00 06/29/16 21:59 06/10/16 08:21 0.25 APPLN Quetiapine Fumarate (seroQUEL TAB) 25 mg TID PRN PO 06/01/16 11:45 07/01/16 11:44 06/01/16 18:18 25 MG Lifitegrast (Xiidra 5% Oph Soln) 1 drop BID OP 06/06/16 21:00 07/06/16 20:59 06/13/16 19:47 1 DROP Lansoprazole (Prevacid Solutab) 30 mg BID NG 06/08/16 21:00 07/08/16 20:59 06/14/16 08:29 30 MG Aspirin (Aspirin Chew) 81 mg DAILY NG 06/09/16 09:00 07/09/16 08:59 06/14/16 08:30 81 MG Docusate Sodium (coLACE SYRUP) 100 mg BID NG 06/08/16 21:00 07/08/16 20:59 06/14/16 08:29 100 MG Sterile Water (Tube Feeding Water Flush) 30 ea Q4 NG 06/08/16 12:00 07/08/16 11:59 06/14/16 08:31 30 EA Acetaminophen (Tylenol Soln) 650 mg Q4H PRN PO 06/09/16 09:45 07/09/16 09:44 06/10/16 08:21 650 MG Gabapentin (Neurontin) 100 mg QAM NG 06/10/16 09:00 07/09/16 08:59 06/14/16 08:36 100 MG Gabapentin (Neurontin) 200 mg DAILY@1600 NG 06/09/16 16:00 07/08/16 15:59 06/13/16 16:00 200 MG Gabapentin 600 mg 600 mg HS NG 06/09/16 21:00 07/08/16 20:59 06/13/16 19:41 600 MG Tigecycline/ Sodium Chloride (Tygacil Inj/Nss 100ml) 105 ml @ 200 mls/hr Q12@0400,1600 IV 06/11/16 04:00 06/18/16 03:59 06/14/16 04:06 200 MLS/HR Miscellaneous Information 1 ea 1 ea UD N/A 06/11/16 09:42 07/11/16 09:41 Gentamicin Sulfate/Sodium Chloride (Gentamicin Inj/ Nss 100ml) 62.2 ml @ 0 mls/hr Tu@1000 INSTIL 06/12/16 10:00 06/22/16 09:59 06/12/16 09:40 60 MLS/HR Simethicone (Mylicon Chew Tab) 80 mg Q6H PRN PO 06/11/16 23:00 07/11/16 22:59 06/11/16 23:51 80 MG Lorazepam (Ativan Inj) 0.5 mg Q4H PRN IV 06/12/16 04:00 07/12/16 03:59 06/13/16 15:29 0.5 MG Miscellaneous Information (Order Awaiting Action) 1 ea QS N/A 06/12/16 17:00 07/12/16 16:59 Insulin Aspart (novoLOG ASPART) SLIDING SCALE G... Q6 SC 06/13/16 12:00 07/13/16 11:59 06/14/16 06:21 2 UNITS Morphine Sulfate (MoRPHine SULFATE INJ) 2 mg Q30M PRN IV 06/13/16 14:45 06/27/16 14:44 Enteral Nutritional Formula (Impact 1.0 [place]) 1,000 ml UD PEG 06/13/16 17:15 07/13/16 17:14 I & O: 24-Hour Column 06/14/16 08:00 Intake Total 2051 ml Output Total 2505 ml Balance -454 ml Vital Signs: Date Time Temp Pulse Resp B/P Pulse Ox O2 Delivery O2 Flow Rate FiO2 06/14/16 07:22 50 06/14/16 06:00 72 20 114/53 98 Mechanical Ventilator 50 06/14/16 05:06 50 06/14/16 04:00 Mechanical Ventilator 40 06/14/16 04:00 36.6 70 20 108/56 98 Mechanical Ventilator 40 06/14/16 04:00 40 06/14/16 02:00 71 20 128/66 95 Mechanical Ventilator 40 06/14/16 01:51 40 06/14/16 00:01 Mechanical Ventilator 40 06/14/16 00:01 40 06/14/16 00:00 36.5 72 20 142/73 98 Mechanical Ventilator 40 06/14/16 00:00 72 20 142/73 06/13/16 23:32 40 06/13/16 22:01 72 20 130/79 98 Mechanical Ventilator 40 06/13/16 20:00 40 06/13/16 20:00 36.4 78 20 159/84 95 Mechanical Ventilator 40 06/13/16 20:00 Mechanical Ventilator 40 06/13/16 19:11 40 06/13/16 17:00 70 20 151/89 99 Mechanical Ventilator 50 06/13/16 16:50 50 06/13/16 16:45 97 18 123/54 99 Mechanical Ventilator 100 Trach Collar 06/13/16 16:30 95 22 122/44 94 Mechanical Ventilator 100 Trach Collar 06/13/16 16:02 36.6 06/13/16 15:59 82 22 131/60 99 Mechanical Ventilator 100 Trach Collar 06/13/16 14:00 105 22 150/62 92 Mechanical Ventilator 50 06/13/16 13:57 30 06/13/16 12:00 74 20 160/84 99 Mechanical Ventilator 30 06/13/16 12:00 99 Mechanical Ventilator 30 06/13/16 12:00 30 06/13/16 11:32 30 06/13/16 10:00 79 20 147/78 97 Mechanical Ventilator 30 Laboratory Results: Last 24 Hours Test 06/13/16 11:37 06/13/16 18:15 06/13/16 21:42 06/14/16 05:30 Bedside Glucose 148 mg/dl 153 mg/dl 179 mg/dl White Blood Count 11.12 K/uL Red Blood Count 3.53 M/uL Hemoglobin 10.1 g/dL Hematocrit 32.7 % Mean Corpuscular Volume 92.6 fL Mean Corpuscular Hemoglobin 28.6 pg Mean Corpuscular Hemoglobin Concent 30.9 g/dl Platelet Count 436 K/uL Mean Platelet Volume 10.0 fL Neutrophils (%) (Auto) 80.6 % Lymphocytes (%) (Auto) 11.7 % Monocytes (%) (Auto) 6.7 % Eosinophils (%) (Auto) 0.5 % Basophils (%) (Auto) 0.2 % Neutrophils # (Auto) 8.97 K/uL Lymphocytes # (Auto) 1.30 K/uL Monocytes # (Auto) 0.74 K/uL Eosinophils # (Auto) 0.06 K/uL Basophils # (Auto) 0.02 K/uL RDW Standard Deviation 61.2 fL RDW Coefficient of Variation 18.1 % Immature Granulocyte % (Auto) 0.3 % Immature Granulocyte # (Auto) 0.03 K/uL Sodium Level 147 mmol/L Potassium Level 3.5 mmol/L Chloride Level 111 mmol/L Carbon Dioxide Level 29 mmol/L Anion Gap 7.0 mmol/L Blood Urea Nitrogen 48 mg/dl Creatinine 0.57 mg/dl Est Creatinine Clear Calc Drug Dose 82.4 ml/min Estimated GFR () 109.6 Estimated GFR (Non- 94.6 BUN/Creatinine Ratio 85.0 Random Glucose 147 mg/dl Calcium Level 8.3 mg/dl Phosphorus Level 4.1 mg/dl Magnesium Level 2.2 mg/dl Total Bilirubin 0.3 mg/dl Aspartate Amino Transf (AST/SGOT) 5 U/L Alanine Aminotransferase (ALT/SGPT) 10 U/L Alkaline Phosphatase 121 U/L Total Protein 6.3 gm/dl Albumin 1.4 gm/dl Globulin 4.9 gm/dl Albumin/Globulin Ratio 0.3
--- NOTE | 2016-06-14 10:44 | Pharmacy Progress Note ---
Glycemic Control: Progress Nt Date of Service Jun 14, 2016. Scope Glycemic Pharmacist consulted by Yenny REED on 06/11/16 for glycemic control and to write orders per [facility] inpatient glycemic control protocol. Objective Accuchecks BSG (last 24hrs): Test 06/13/16 11:37 06/13/16 18:15 06/13/16 21:42 06/14/16 05:30 Bedside Glucose 148 mg/dl (70-90) 153 mg/dl (70-90) 179 mg/dl (70-90) Random Glucose 147 mg/dl (70-99) Laboratory Data (last 24hrs) Test 06/14/16 05:30 Anion Gap 7.0 mmol/L BUN/Creatinine Ratio 85.0 Blood Urea Nitrogen 48 mg/dl Creatinine 0.57 mg/dl Potassium Level 3.5 mmol/L Sodium Level 147 mmol/L White Blood Count 11.12 K/uL Red Blood Count 3.53 M/uL Hemoglobin 10.1 g/dL Hematocrit 32.7 % Mean Corpuscular Volume 92.6 fL Mean Corpuscular Hemoglobin 28.6 pg Mean Corpuscular Hemoglobin Concent 30.9 g/dl Platelet Count 436 K/uL Mean Platelet Volume 10.0 fL Neutrophils (%) (Auto) 80.6 % Lymphocytes (%) (Auto) 11.7 % Monocytes (%) (Auto) 6.7 % Eosinophils (%) (Auto) 0.5 % Basophils (%) (Auto) 0.2 % Neutrophils # (Auto) 8.97 K/uL Lymphocytes # (Auto) 1.30 K/uL Monocytes # (Auto) 0.74 K/uL Eosinophils # (Auto) 0.06 K/uL Basophils # (Auto) 0.02 K/uL HbA1c: Test 05/29/16 06:45 Hemoglobin A1c 6.0 % (4.5-5.6) H Recent Pertinent Medications Outpatient Anti-diabetic Regimen: * Novolog per sliding scale * A1c = 6 % 05/29/16 The patient is currently receiving: * Basal insulin: None * Correctional Insulin: Novolog Correction per scale Q 4 hours Goal Range: Low 120 mg/dL - High 160 mg/dL Correction Factor: 30 mg/dL/unit * Prandial insulin: Per carb ratio of 1 unit per ~9 grams CHO consumed -2 unit for Impact @20cc/hr, 4 units for Impact @40cc/hr, 6 units for Impact @60cc/hr, 7 units for Impact @70cc/hr * Oral Agents: None Risk Factors for Insulin Resistance: * Infection: on Tigecycline per ID recs for 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 * Diet: Impact restarted @1999 last evening @10cc/hr and has been titrate up to 40cc/hr this AM * Mechanical Ventilation: Yes Assessment & Plan ASSESSMENT: 06/11/16 * Glycemic control deteriorated as tube feeds were advanced to goal * She currently has orders for correctional insulin only, will add a carb ratio in order to proactively cover CHO administration * Will not add basal insulin at this time as she did not require basal insulin [employer], most recent A1c was 6.0, likely had adequate control with SSI alone [employer] 06/12/16 * Tube feeds ran until 0400 this AM and then were placed on hold due to patient nausea, bloating - no plans to restart tube feeds at this time * Despite adding prandial insulin to cover carbs in tube feeds yesterday BSGs did not drop to goal. If tube feeds are restarted she will likely require a larger prandial insulin dose (a CR of 1:12 was not adequate) * Fasting BSG elevated this AM, however feeds have only been on hold since 0400. I would expect that BSG will begin to trend down as it did prior this admission when she was not receiving tube feeds. No basal at this time 06/13/16 * Glycemic control has improved over last 24 hrs; BSGs have ranged 148-180; all at goal; all BSGs reflective of fasting state * No basal insulin required at this time * GI consulted for PEG placement, uncertain when this may be done * Will change BSG frequency back to Q 6 hrs at this time and adjust CR should PEG be placed in the next 24 hrs and TF's restarted 06/14/16 * PEG tube was placed yesterday afternoon * Impact feeds were restarted @1999 last evening and have been titrated up to 40cc/hr as of this AM * BSG control thus far has been good even after restarting tube feedings; RN's have been covering carbs delivered by feeds * Plan to continue w/ same insulin regimen today. If BSGs begin to rise, it is likely due to inadequate prandial insulin - will follow PLAN FOR INPATIENT GLYCEMIC CONTROL: * No basal insulin at this time * Continuing correction factor of 30 mg/dl/unit * Continue carb ratio of 1 unit per ~9 grams CHO consumed over a 6 hr time window * for Impact @20cc/hr, give 2 units * for Impact @40cc/hr, give 4 units * for Impact @60cc/hr, give 6 units * for Impact @70cc/hr, give 7 units * Continuing goal range of Low 120 mg/dL - High 160 mg/dL * Please note that the plan above was derived based on current level of insulin resistance and hospital stress. These recommendations are appropriate for inpatient admission only. Plan of care upon discharge will need to be reassessed to avoid potential outpatient hypo/hyperglycemia. Thank you.
--- NOTE | 2016-06-14 11:26 | Infectious Disease Progress Nt ---
Progress Note Date of Service Jun 14, 2016. Subjective Pt evaluation today including: conversation w/ patient, physical exam, chart review, lab review, review of studies, conversation w/ ux consultant (Melvin Marques PA-C), review of inpatient medication list WBC count this morning was 11.12. Creatinine stable at 0.57. Noted previous urine culture growing Yeast, not Merari Albicans. Bronchial washings also growing yeast. Patient continues to have mild worsening of her interstitial changes on CXR as of yesterday. I did review these images. All Other Systems: Reviewed and Negative Medications Current Inpatient Medications Medications (Trade) Dose Ordered Sig/Tasha Route Start Time Stop Time Status Last Admin Dose Admin Levalbuterol (Xopenex 1.25MG/ 3ML Neb) 1.25 mg Q4H PRN INH 05/28/16 23:00 06/27/16 22:59 Ondansetron HCl (Zofran Inj) 4 mg Q6H PRN IV 05/28/16 23:00 06/27/16 22:59 06/12/16 20:01 4 MG Allopurinol (Zyloprim Tab) 100 mg DAILY PO 05/29/16 09:00 06/28/16 08:59 06/14/16 08:29 100 MG Ascorbic Acid (Vitamin C Tab) 500 mg BID PO 05/29/16 09:00 06/28/16 08:59 06/14/16 08:29 500 MG Dipyridamole/ Aspirin (Aggrenox 200MG/ 25MG Cap) 1 cap BID PO 05/29/16 09:00 06/28/16 08:59 06/14/16 08:29 1 CAP Buspirone HCl (BusPAR TAB) 7.5 mg BID PO 05/29/16 09:00 06/28/16 08:59 06/14/16 08:29 7.5 MG Calcium/Vitamin D (Caltrate Plus Tab) 1 tab BID PO 05/29/16 09:00 06/28/16 08:59 06/14/16 08:30 1 TAB Cholecalciferol (Vitamin D Tab) 1,000 inter.unit BID PO 05/29/16 09:00 06/28/16 08:59 06/14/16 08:29 1,000 INTER.UNIT Clopidogrel Bisulfate (plAVix TAB) 75 mg DAILY PO 05/29/16 09:00 06/28/16 08:59 06/14/16 08:30 75 MG Escitalopram Oxalate (Lexapro Tab) 20 mg QAM PO 05/29/16 09:00 06/28/16 08:59 06/14/16 08:30 20 MG Magnesium Chloride (Slow-Mag Tab) 64 mg BID PO 05/29/16 09:00 06/28/16 08:59 Future Hold 06/06/16 21:31 64 MG Phenazopyridine HCl (Pyridium Tab) 200 mg DAILY PRN PO 05/28/16 23:00 06/27/16 22:59 Pentosan Polysulfate Sodium (Elmiron) 100 mg BID PO 05/29/16 09:00 06/28/16 08:59 06/14/16 08:30 100 MG Artificial Tears (Artificial Tears) 2 drops BID PRN OPB 05/29/16 04:45 06/28/16 04:44 06/10/16 07:57 2 DROPS Solifenacin (Vesicare) 10 mg HS PO 05/29/16 21:00 06/28/16 20:59 06/13/16 19:44 10 MG Thiamine HCl (Vitamin B-1 Tab) 100 mg DAILY PO 05/29/16 09:00 06/28/16 08:59 06/14/16 08:29 100 MG Artificial Tears (Lacri-Lube Oph Oint) 1 appln HS OPB 05/29/16 21:00 06/28/16 20:59 06/13/16 19:47 1 APPLN Bisacodyl (Dulcolax Supp) 10 mg TuTh@0530 [place] 05/29/16 06:15 06/28/16 06:14 05/31/16 05:30 10 MG Bisacodyl (Dulcolax Supp) 10 mg SuMoWeFrSa@2330 [place] 05/30/16 23:30 06/29/16 23:29 06/09/16 22:08 10 MG Amlodipine Besylate (Norvasc Tab) 2.5 mg DAILY PO 05/29/16 09:00 06/28/16 08:59 06/14/16 08:30 2.5 MG Polyethylene (Miralax Powder Packet) 17 gm QPM PO 05/29/16 21:00 06/28/16 20:59 06/13/16 19:44 17 GM Albuterol/ Ipratropium (Duoneb) 3 ml Q6R INH 05/29/16 15:00 06/28/16 14:59 06/14/16 07:22 3 ML Quetiapine Fumarate (seroQUEL TAB) 25 mg HS PO 05/29/16 22:00 06/28/16 21:59 06/13/16 19:44 25 MG Sodium Chloride (Toole Nasal [place]) 2 sprays QID NA 05/30/16 21:00 06/29/16 20:59 06/13/16 19:48 2 SPRAYS Multi-Ingredient Ointment (Eucerin Unscented Cr) 0.25 appln BID PRN EXT 05/30/16 22:00 06/29/16 21:59 06/10/16 08:21 0.25 APPLN Quetiapine Fumarate (seroQUEL TAB) 25 mg TID PRN PO 06/01/16 11:45 07/01/16 11:44 06/01/16 18:18 25 MG Lifitegrast (Xiidra 5% Oph Soln) 1 drop BID OP 06/06/16 21:00 07/06/16 20:59 06/13/16 19:47 1 DROP Lansoprazole (Prevacid Solutab) 30 mg BID NG 06/08/16 21:00 07/08/16 20:59 06/14/16 08:29 30 MG Aspirin (Aspirin Chew) 81 mg DAILY NG 06/09/16 09:00 07/09/16 08:59 06/14/16 08:30 81 MG Docusate Sodium (coLACE SYRUP) 100 mg BID NG 06/08/16 21:00 07/08/16 20:59 06/14/16 08:29 100 MG Sterile Water (Tube Feeding Water Flush) 30 ea Q4 NG 06/08/16 12:00 07/08/16 11:59 06/14/16 08:31 30 EA Acetaminophen (Tylenol Soln) 650 mg Q4H PRN PO 06/09/16 09:45 07/09/16 09:44 06/10/16 08:21 650 MG Gabapentin (Neurontin) 100 mg QAM NG 06/10/16 09:00 3/27/17 08:59 06/14/16 08:36 100 MG Gabapentin (Neurontin) 200 mg DAILY@1600 NG 06/09/16 16:00 07/08/16 15:59 06/13/16 16:00 200 MG Gabapentin 600 mg 600 mg HS NG 06/09/16 21:00 07/08/16 20:59 06/13/16 19:41 600 MG Tigecycline/ Sodium Chloride (Tygacil Inj/Nss 100ml) 105 ml @ 200 mls/hr Q12@0400,1600 IV 06/11/16 04:00 06/18/16 03:59 06/14/16 04:06 200 MLS/HR Miscellaneous Information 1 ea 1 ea UD N/A 06/11/16 09:42 07/11/16 09:41 Gentamicin Sulfate/Sodium Chloride (Gentamicin Inj/ Nss 100ml) 62.2 ml @ 0 mls/hr Tu@1000 INSTIL 06/12/16 10:00 06/22/16 09:59 06/12/16 09:40 60 MLS/HR Simethicone (Mylicon Chew Tab) 80 mg Q6H PRN PO 06/11/16 23:00 07/11/16 22:59 06/11/16 23:51 80 MG Lorazepam (Ativan Inj) 0.5 mg Q4H PRN IV 06/12/16 04:00 07/12/16 03:59 06/13/16 15:29 0.5 MG Miscellaneous Information (Order Awaiting Action) 1 ea QS N/A 06/12/16 17:00 07/12/16 16:59 Insulin Aspart (novoLOG ASPART) SLIDING SCALE G... Q6 SC 06/13/16 12:00 07/13/16 11:59 06/14/16 06:21 2 UNITS Morphine Sulfate (MoRPHine SULFATE INJ) 2 mg Q30M PRN IV 06/13/16 14:45 06/27/16 14:44 Enteral Nutritional Formula (Impact 1.0 Nixon) 1,000 ml UD PEG 06/13/16 17:15 07/13/16 17:14 Objective Vital Signs Date Time Temp Pulse Resp B/P Pulse Ox O2 Delivery O2 Flow Rate FiO2 06/14/16 10:16 88 20 96 Mechanical Ventilator 50 06/14/16 08:00 Mechanical Ventilator 50 06/14/16 08:00 Mechanical Ventilator 50 06/14/16 08:00 86 20 100/43 97 Mechanical Ventilator 50 06/14/16 08:00 50 06/14/16 07:22 50 06/14/16 06:00 72 20 114/53 98 Mechanical Ventilator 50 06/14/16 05:06 50 06/14/16 04:00 Mechanical Ventilator 40 06/14/16 04:00 36.6 70 20 108/56 98 Mechanical Ventilator 40 06/14/16 04:00 40 06/14/16 02:00 71 20 128/66 95 Mechanical Ventilator 40 06/14/16 01:51 40 06/14/16 00:01 Mechanical Ventilator 40 06/14/16 00:01 40 06/14/16 00:00 36.5 72 20 142/73 98 Mechanical Ventilator 40 06/14/16 00:00 72 20 142/73 06/13/16 23:32 40 06/13/16 22:01 72 20 130/79 98 Mechanical Ventilator 40 06/13/16 20:00 40 06/13/16 20:00 36.4 78 20 159/84 95 Mechanical Ventilator 40 06/13/16 20:00 Mechanical Ventilator 40 06/13/16 19:11 40 06/13/16 17:00 70 20 151/89 99 Mechanical Ventilator 50 06/13/16 16:50 50 06/13/16 16:45 97 18 123/54 99 Mechanical Ventilator 100 Trach Collar 06/13/16 16:30 95 22 122/44 94 Mechanical Ventilator 100 Trach Collar 06/13/16 16:02 36.6 06/13/16 15:59 82 22 131/60 99 Mechanical Ventilator 100 Trach Collar 06/13/16 14:00 105 22 150/62 92 Mechanical Ventilator 50 06/13/16 13:57 30 06/13/16 12:00 74 20 160/84 99 Mechanical Ventilator 30 06/13/16 12:00 99 Mechanical Ventilator 30 06/13/16 12:00 30 06/13/16 11:32 30 Physical Exam General Appearance: + mild distress Eyes: normal inspection, sclerae normal ENT: hearing grossly normal Neck: supple Respiratory/Chest: + pertinent finding (ventilated, tracheostomy, coarse breath sounds throughout) Cardiovascular: regular rate, rhythm Extremities: + pertinent finding (quadriplegic) Neurologic/Psychiatric: alert Skin: normal color, warm/dry, no rash Laboratory Results Last 24 Hours Test 06/13/16 11:37 06/13/16 18:15 06/13/16 21:42 06/14/16 05:30 Bedside Glucose 148 mg/dl 153 mg/dl 179 mg/dl White Blood Count 11.12 K/uL Red Blood Count 3.53 M/uL Hemoglobin 10.1 g/dL Hematocrit 32.7 % Mean Corpuscular Volume 92.6 fL Mean Corpuscular Hemoglobin 28.6 pg Mean Corpuscular Hemoglobin Concent 30.9 g/dl Platelet Count 436 K/uL Mean Platelet Volume 10.0 fL Neutrophils (%) (Auto) 80.6 % Lymphocytes (%) (Auto) 11.7 % Monocytes (%) (Auto) 6.7 % Eosinophils (%) (Auto) 0.5 % Basophils (%) (Auto) 0.2 % Neutrophils # (Auto) 8.97 K/uL Lymphocytes # (Auto) 1.30 K/uL Monocytes # (Auto) 0.74 K/uL Eosinophils # (Auto) 0.06 K/uL Basophils # (Auto) 0.02 K/uL RDW Standard Deviation 61.2 fL RDW Coefficient of Variation 18.1 % Immature Granulocyte % (Auto) 0.3 % Immature Granulocyte # (Auto) 0.03 K/uL Sodium Level 147 mmol/L Potassium Level 3.5 mmol/L Chloride Level 111 mmol/L Carbon Dioxide Level 29 mmol/L Anion Gap 7.0 mmol/L Blood Urea Nitrogen 48 mg/dl Creatinine 0.57 mg/dl Est Creatinine Clear Calc Drug Dose 82.4 ml/min Estimated GFR () 109.6 Estimated GFR (Non- 94.6 BUN/Creatinine Ratio 85.0 Random Glucose 147 mg/dl Calcium Level 8.3 mg/dl Phosphorus Level 4.1 mg/dl Magnesium Level 2.2 mg/dl Total Bilirubin 0.3 mg/dl Aspartate Amino Transf (AST/SGOT) 5 U/L Alanine Aminotransferase (ALT/SGPT) 10 U/L Alkaline Phosphatase 121 U/L Total Protein 6.3 gm/dl Albumin 1.4 gm/dl Globulin 4.9 gm/dl Albumin/Globulin Ratio 0.3 Assessment and Plan Patient with history of recurrent UTI's and pneumonia with respiratory failure. She is currently on Tigecycline. Yeast in bronchial washings is likely colonization and does not need treated. Will repeat urinalysis and urine culture today. If she continues to grow yeast, likely will begin amphotericin bladder irrigation. Otherwise, continue Tigecycline. We will follow. PROVIDER ADDENDUM: Patient reviewed with Ms. Martinez. Agree with above assessment.
[2016-06-14] MEDS ORDERED: NURSING VERBAL MED ORDER ONE (14:15)
[2016-06-14] MEDS: POLYETHYLENE (MIRALAX) 17 GM PACK PO SCH (20:26)
[2016-06-14] MEDS: QUETIAPINE FUMARATE 25 MG TAB PO SCH (20:33)
[2016-06-14] MEDS: PHENAZOPYRIDINE HCL 200 MG TAB PO PRN (20:35)
[2016-06-14] MEDS: SOLIFENACIN 10 MG TAB PO SCH (20:37)
[2016-06-14] MEDS: PENTOSAN POLYSULFATE SODIUM 100 MG PO SCH (20:38)
[2016-06-14] MEDS: ARTIFICIAL TEARS OP OINT 3.5 GM TUBE OPB SCH (20:41)
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
[2016-06-15] VITALS (16 sets, daily range): BP systolic 109–146; BP diastolic 46–72; PULSE 76–109; TEMP 35.9–37; O2SAT 94–99
[2016-06-15] MEDS: INSULIN ASPART 100 UNITS/ML 3 ML PEN SC SCH ×2 (00:17→06:06)
[2016-06-15] MEDS: TUBE FEEDING WATER FLUSH NG SCH ×3 (00:17→08:33)
[2016-06-15] MEDS: ALBUT/IPRATROP 3MG/0.5MG NEB 3 ML VIAL INH SCH ×4 (01:46→20:24)
[2016-06-15] MEDS: SODIUM CHLORIDE 0.9% IV SCH ×2 (03:39→16:00)
[2016-06-15] MEDS: TIGECYCLINE IV SCH ×2 (03:39→16:00)
[2016-06-15 06:02] LABS: BASO % 0.2 %; BASO ABS # 0.02 K/uL (0-0.2); COMPLETE YES; EOS % 0.4 %; HEMATOCRIT 31.8 % (37-47); IG% 0.3 %; LYMPH % 12.3 %; MEAN CELL VOLUME 92.4 fL (80-100); MEAN CORPUSCULAR HEMOGLOBIN 28.5 pg (25-34); MEAN CORPUSCULAR HGB CONC 30.8 g/dl (32-36); MEAN PLATELET VOLUME 10.1 fL (7.4-10.4); MONO % 5.4 %; NEUT % 81.4 %; PLATELET COUNT 383 K/uL (130-400); RED BLOOD COUNT 3.44 M/uL (4.2-5.4)
[2016-06-15 06:26] LABS: BUN/CREATININE RATIO 85.6 (10-20); CALCIUM 8.4 mg/dl (8.5-10.1); CREATININE 0.62 mg/dl (0.60-1.20); MAGNESIUM 2.2 mg/dl (1.8-2.4); POTASSIUM 3.5 mmol/L (3.5-5.1)
[2016-06-15 06:29] LABS: ALB/GLOB RATIO 0.3 (0.9-2); PHOSPHORUS 3.8 mg/dl (2.5-4.9)
[2016-06-15] MEDS: ASCORBIC ACID 500 MG TAB PO SCH ×2 (08:32→20:42)
[2016-06-15] MEDS: AMLODIPINE BESYLATE 5 MG TAB PO SCH (08:32)
[2016-06-15] MEDS: THIAMINE HCL 100 MG TAB PO SCH (08:32)
[2016-06-15] MEDS: DOCUSATE SODIUM 100 MG/10 ML UDC NG SCH ×2 (08:32→20:42)
[2016-06-15] MEDS: ESCITALOPRAM OXALATE 20 MG TAB PO SCH (08:32)
[2016-06-15] MEDS: DIPYRIDAMOLE/ASPIRIN CAP PO SCH ×2 (08:32→20:42)
[2016-06-15] MEDS: CLOPIDOGREL BISULFATE 75 MG TAB PO SCH (08:32)
[2016-06-15] MEDS: ALLOPURINOL 100 MG TAB PO SCH (08:32)
[2016-06-15] MEDS: LANSOPRAZOLE SOLUTAB 30 MG NG SCH ×2 (08:33→20:42)
[2016-06-15] MEDS: BusPIRone 15 MG TAB PO SCH ×2 (08:33→20:42)
[2016-06-15] MEDS: SODIUM CHLORIDE 0.65% NA SOLN 45 ML (OCEAN) SCH ×4 (08:33→20:41)
[2016-06-15] MEDS: CALCIUM 600MG + VIT D 400 IU TAB PO SCH ×2 (08:33→20:42)
[2016-06-15] MEDS: ASPIRIN 81 MG CHEW NG SCH (08:33)
[2016-06-15] MEDS: GABAPENTIN 250 MG/5 ML 470 ML BTL NG SCH ×3 (08:34→20:42)
[2016-06-15] MEDS: PENTOSAN POLYSULFATE SODIUM 100 MG PO SCH ×2 (08:34→20:43)
[2016-06-15] MEDS: LIFITEGRAST 5% OP SCH ×2 (08:35→20:42)
[2016-06-15] MEDS ORDERED: NOVASOURCE RENAL 1000ML BAG PEG SCH (09:45)
[2016-06-15] MEDS: FEEDING WATER FLUSH PEG SCH ×8 (10:04→23:41)
[2016-06-15] MEDS: PROSOURCE NOCARB 30ML/PKT PEG SCH (10:04)
[2016-06-15] MEDS: ALBUMIN HUMAN 25% 12.5 GM/50 ML VIAL IV SCH ×4 (10:04→18:27)
--- NOTE | 2016-06-15 10:12 | Critical Care Progress Note ---
Critical Care Progress Note Date of Service Jun 15, 2016. ICU Day ICU Day Number: [address] Coleman Subjective Patient was laying in bed, difficult to rouse however once awakened was alert Currently waiting for confirmation that the new ventilator can be ordered as the one they have does not accommodate PEEP Review of 10 systems was unable to be completed because of limited communication , denies pain Objective GENERAL : comfortably resting in bed, no distress Skin: no rashes noted, no suspicious lesions, no areas of inflammations/ lacerations/ erythema noted CVS: S1/ S2 noted, RRR, no rubs/ murmurs noted, no cyanosis RVS: not in acute resp distress, coarse breath sounds throughout, limited to bases, equal expansion Neck: tracheotomy noted, minimal drainage ABD:distended but soft, no rebound, no organomegaly MSK:no swelling/ pain on palpation of joints, lack of tone noted, BL Assessment & Plan 1. Acute on chronic respiratory failure; ventilator dependent secondary to C3 fracture 2. Aspiration PNA; actinetobacter baumannii isolated- improving 3. Hypernatremia , Hyperchloremia 4. Nutrition deficiency, multifactorial; PEG placed 5. h/o UTI and candidal infections; cyclinc Levaquin and meropenem q 28 days as outpt 6. h/o esophageal candidasis 7. h/o C Diff 8. Anxiety 9. CAD 10. Anemia of chronic disease NVS - Alert currently - continue to monitor for S&S of delirium - Has Lexapro, Buspar and seroquel for anxiety CVS - No tachy; continue to monitor RVS - Vent settings has been changed to 18/650/5/40 - to be left at these settings - await status of decision if a vent with PEEP can be available for home use - consider wean PEEP tomorrow - discussed care with Slava Ley PAC GI - impact changed to novasource and x1 prosource - goal of 35 - free water q4 - PEG is patent, residual approx 200cc RENAL - goal is for a net negative volume status, was positive yesterday - Albumin with Diuril 500 mg - continue to monitor I&O and daily weights - BUN has been slowly increasing, reevaluate in the am - change hernandez q 2 weeks as home regimen FEN - ongoing hypernatremia with increased free fluid flushes - see GI for nutrition changes - recheck in am ENDO - glycemic consult ordered, will follow along ID - Cont Tigecycline for Acinetobacter - Continue weekly Gentamicin flushes - appreciate ID input HEME - continue to follow, WBC improved and anemia stable Dispo: Pending confirmation of home vent equipment Resident Physician Supervision Note: Dr. Trimble was resident physician during care of patient. I separately evaluated patient and did history and exam. I discussed the case with the resident and generally agree with the findings and plan. No ventilator changes today. Awaiting word from pulmonary and case management regarding home ventilator availability (current vent cannot provide PEEP patient requires). Will change tube feed formulation. Goal 1.5 gram/kg protein , increased free water flushed and thiazide diuresis to decrease hypernatremia, will recheck bmp. Considered danazol for protein calorie malnutrition from poor intake and chronic disease state. Rare cases of rapid pulmonary fibrosis in elderly. Given pulmonary issues, risks outweigh benefits. Level 3 billing, highly complex. Documented By: Jayesh Coleman DO Consults & Procedures Consultants: Pulmonary: Dr. Mixon/ Dr. Luther Infectious Dz: Saba Juan Procedures: Bronchoscopy Dr. Luther 06/04 Data Medications: Current Inpatient Medications Medications (Trade) Dose Ordered Sig/Tasha Route Start Time Stop Time Status Last Admin Dose Admin Levalbuterol (Xopenex 1.25MG/ 3ML Neb) 1.25 mg Q4H PRN INH 05/28/16 23:00 06/27/16 22:59 Ondansetron HCl (Zofran Inj) 4 mg Q6H PRN IV 05/28/16 23:00 06/27/16 22:59 06/12/16 20:01 4 MG Allopurinol (Zyloprim Tab) 100 mg DAILY PO 05/29/16 09:00 06/28/16 08:59 06/15/16 08:32 100 MG Ascorbic Acid (Vitamin C Tab) 500 mg BID PO 05/29/16 09:00 06/28/16 08:59 06/15/16 08:32 500 MG Dipyridamole/ Aspirin (Aggrenox 200MG/ 25MG Cap) 1 cap BID PO 05/29/16 09:00 06/28/16 08:59 06/15/16 08:32 1 CAP Buspirone HCl (BusPAR TAB) 7.5 mg BID PO 05/29/16 09:00 06/28/16 08:59 06/15/16 08:33 7.5 MG Calcium/Vitamin D (Caltrate Plus Tab) 1 tab BID PO 05/29/16 09:00 06/28/16 08:59 06/15/16 08:33 1 TAB Cholecalciferol (Vitamin D Tab) 1,000 inter.unit BID PO 05/29/16 09:00 06/28/16 08:59 06/14/16 20:37 1,000 INTER.UNIT Clopidogrel Bisulfate (plAVix TAB) 75 mg DAILY PO 05/29/16 09:00 06/28/16 08:59 06/15/16 08:32 75 MG Escitalopram Oxalate (Lexapro Tab) 20 mg QAM PO 05/29/16 09:00 06/28/16 08:59 06/15/16 08:32 20 MG Magnesium Chloride (Slow-Mag Tab) 64 mg BID PO 05/29/16 09:00 06/28/16 08:59 Future Hold 06/06/16 21:31 64 MG Phenazopyridine HCl (Pyridium Tab) 200 mg DAILY PRN PO 05/28/16 23:00 06/27/16 22:59 06/14/16 20:35 200 MG Artificial Tears (Artificial Tears) 2 drops BID PRN OPB 05/29/16 04:45 06/28/16 04:44 06/10/16 07:57 2 DROPS Solifenacin (Vesicare) 10 mg HS PO 05/29/16 21:00 06/28/16 20:59 06/14/16 20:37 10 MG Thiamine HCl (Vitamin B-1 Tab) 100 mg DAILY PO 05/29/16 09:00 06/28/16 08:59 06/15/16 08:32 100 MG Artificial Tears (Lacri-Lube Oph Oint) 1 appln HS OPB 05/29/16 21:00 06/28/16 20:59 06/14/16 20:41 1 APPLN Bisacodyl (Dulcolax Supp) 10 mg TuTh@0530 IN 05/29/16 06:15 06/28/16 06:14 05/31/16 05:30 10 MG Bisacodyl (Dulcolax Supp) 10 mg SuMoWeFrSa@2330 IN 05/30/16 23:30 06/29/16 23:29 06/09/16 22:08 10 MG Amlodipine Besylate (Norvasc Tab) 2.5 mg DAILY PO 05/29/16 09:00 06/28/16 08:59 06/15/16 08:32 2.5 MG Polyethylene (Miralax Powder Packet) 17 gm QPM PO 05/29/16 21:00 06/28/16 20:59 06/13/16 19:44 17 GM Albuterol/ Ipratropium (Duoneb) 3 ml Q6R INH 05/29/16 15:00 06/28/16 14:59 06/15/16 07:42 3 ML Quetiapine Fumarate (seroQUEL TAB) 25 mg HS PO 05/29/16 22:00 06/28/16 21:59 06/14/16 20:33 25 MG Sodium Chloride (Manderson Nasal Courtenay) 2 sprays QID NA 05/30/16 21:00 06/29/16 20:59 06/15/16 08:33 2 SPRAYS Multi-Ingredient Ointment (Eucerin Unscented Cr) 0.25 appln BID PRN EXT 05/30/16 22:00 06/29/16 21:59 06/10/16 08:21 0.25 APPLN Quetiapine Fumarate (seroQUEL TAB) 25 mg TID PRN PO 06/01/16 11:45 07/01/16 11:44 06/01/16 18:18 25 MG Lifitegrast (Xiidra 5% Oph Soln) 1 drop BID OP 06/06/16 21:00 07/06/16 20:59 06/15/16 08:35 1 DROP Lansoprazole (Prevacid Solutab) 30 mg BID NG 06/08/16 21:00 07/08/16 20:59 06/15/16 08:33 30 MG Aspirin (Aspirin Chew) 81 mg DAILY NG 06/09/16 09:00 07/09/16 08:59 06/15/16 08:33 81 MG Docusate Sodium (coLACE SYRUP) 100 mg BID NG 06/08/16 21:00 07/08/16 20:59 06/15/16 08:32 100 MG Acetaminophen (Tylenol Soln) 650 mg Q4H PRN PO 06/09/16 09:45 07/09/16 09:44 06/10/16 08:21 650 MG Gabapentin (Neurontin) 100 mg QAM NG 06/10/16 09:00 07/09/16 08:59 06/15/16 08:34 100 MG Gabapentin (Neurontin) 200 mg DAILY@1600 NG 06/09/16 16:00 07/08/16 15:59 06/14/16 16:56 200 MG Gabapentin 600 mg 600 mg HS NG 06/09/16 21:00 07/08/16 20:59 06/14/16 20:32 600 MG Tigecycline/ Sodium Chloride (Tygacil Inj/Nss 100ml) 105 ml @ 200 mls/hr Q12@0400,1600 IV 06/11/16 04:00 06/18/16 03:59 06/15/16 03:39 200 MLS/HR Miscellaneous Information 1 ea 1 ea UD N/A 06/11/16 09:42 07/11/16 09:41 Gentamicin Sulfate/Sodium Chloride (Gentamicin Inj/ Nss 100ml) 62.2 ml @ 0 mls/hr Tu@1000 INSTIL 06/12/16 10:00 06/22/16 09:59 06/12/16 09:40 60 MLS/HR Simethicone (Mylicon Chew Tab) 80 mg Q6H PRN PO 06/11/16 23:00 07/11/16 22:59 06/11/16 23:51 80 MG Lorazepam (Ativan Inj) 0.5 mg Q4H PRN IV 06/12/16 04:00 07/12/16 03:59 06/13/16 15:29 0.5 MG Insulin Aspart (novoLOG ASPART) SLIDING SCALE G... Q6 SC 06/13/16 12:00 07/13/16 11:59 06/15/16 06:06 8 UNITS Morphine Sulfate (MoRPHine SULFATE INJ) 2 mg Q30M PRN IV 06/13/16 14:45 06/27/16 14:44 Enteral Nutritional Formula (Impact 1.0 Nixon) 1,000 ml UD PEG 06/13/16 17:15 07/13/16 17:14 06/15/16 03:41 1,000 ML Sterile Water (Tube Feeding Water Flush) 90 ea Q4 NG 06/14/16 16:00 07/08/16 11:59 06/15/16 08:33 90 EA Heparin Sodium (Porcine) (Heparin 100 Unit/ml 5ml Flush) 5 ml PRN PRN IV 06/14/16 17:00 07/14/16 16:59 06/14/16 19:17 5 ML Pentosan Polysulfate Sodium 100 mg 100 mg BID PO 06/14/16 21:00 07/14/16 20:59 06/15/16 08:34 100 MG Potassium Chloride 20 meq/ Prmx 100 ml @ 50 mls/hr Q2H IV 06/15/16 10:00 06/15/16 13:59 Chlorothiazide Sodium/Dextrose (Diuril Inj/D5 50ml) 68 ml @ 150 mls/hr Q8H IV 06/15/16 11:00 06/16/16 03:28 Albumin Human (Albumin 25%) 12.5 gm TODAY@1000,1001 IV 06/15/16 10:00 06/15/16 10:02 Albumin Human (Albumin 25%) 12.5 gm TODAY@1800,1801 IV 06/15/16 18:00 06/15/16 18:02 Albumin Human (Albumin 25%) 12.5 gm TODAY@0200,0201 IV 06/16/16 02:00 06/16/16 02:02 I & O: 24-Hour Column 06/15/16 07:59 Intake Total 2069 ml Output Total 975 ml Balance 1094 ml Vital Signs: Date Time Temp Pulse Resp B/P Pulse Ox O2 Delivery O2 Flow Rate FiO2 06/15/16 07:58 35 06/15/16 06:00 82 21 112/57 94 Mechanical Ventilator 30 06/15/16 05:15 35 06/15/16 04:00 95 Mechanical Ventilator 30 06/15/16 04:00 30 06/15/16 04:00 35.9 80 20 124/54 95 Mechanical Ventilator 30 06/15/16 02:00 79 20 137/65 96 Mechanical Ventilator 30 06/15/16 01:46 35 06/15/16 00:01 36.4 76 20 127/62 96 Mechanical Ventilator 30 06/14/16 23:59 96 Mechanical Ventilator 30 06/14/16 23:59 30 06/14/16 22:45 35 06/14/16 19:30 35 06/14/16 19:30 36.7 87 20 98/53 95 Mechanical Ventilator 30 06/14/16 19:30 Mechanical Ventilator 30 06/14/16 19:06 35 06/14/16 15:30 Mechanical Ventilator 30 06/14/16 15:30 35 06/14/16 15:30 36.7 77 20 128/59 96 Mechanical Ventilator 30 06/14/16 14:36 35 06/14/16 14:06 60 20 118/58 95 Mechanical Ventilator 40 06/14/16 12:00 Mechanical Ventilator 40 06/14/16 12:00 77 20 97 Mechanical Ventilator 40 06/14/16 12:00 40 06/14/16 11:49 40 06/14/16 10:16 88 20 96 Mechanical Ventilator 50 Laboratory Results: Last 24 Hours Test 06/14/16 13:38 06/14/16 17:06 06/14/16 23:53 06/15/16 05:23 Bedside Glucose 259 mg/dl 122 mg/dl 214 mg/dl White Blood Count 10.60 K/uL Red Blood Count 3.44 M/uL Hemoglobin 9.8 g/dL Hematocrit 31.8 % Mean Corpuscular Volume 92.4 fL Mean Corpuscular Hemoglobin 28.5 pg Mean Corpuscular Hemoglobin Concent 30.8 g/dl Platelet Count 383 K/uL Mean Platelet Volume 10.1 fL Neutrophils (%) (Auto) 81.4 % Lymphocytes (%) (Auto) 12.3 % Monocytes (%) (Auto) 5.4 % Eosinophils (%) (Auto) 0.4 % Basophils (%) (Auto) 0.2 % Neutrophils # (Auto) 8.64 K/uL Lymphocytes # (Auto) 1.30 K/uL Monocytes # (Auto) 0.57 K/uL Eosinophils # (Auto) 0.04 K/uL Basophils # (Auto) 0.02 K/uL RDW Standard Deviation 61.5 fL RDW Coefficient of Variation 18.3 % Immature Granulocyte % (Auto) 0.3 % Immature Granulocyte # (Auto) 0.03 K/uL Sodium Level 149 mmol/L Potassium Level 3.5 mmol/L Chloride Level 113 mmol/L Carbon Dioxide Level 29 mmol/L Anion Gap 7.0 mmol/L Blood Urea Nitrogen 53 mg/dl Creatinine 0.62 mg/dl Est Creatinine Clear Calc Drug Dose 75.8 ml/min Estimated GFR () 106.6 Estimated GFR (Non- 92.0 BUN/Creatinine Ratio 85.6 Random Glucose 211 mg/dl Calcium Level 8.4 mg/dl Phosphorus Level 3.8 mg/dl Magnesium Level 2.2 mg/dl Total Bilirubin 0.3 mg/dl Aspartate Amino Transf (AST/SGOT) 5 U/L Alanine Aminotransferase (ALT/SGPT) 8 U/L Alkaline Phosphatase 137 U/L Total Protein 6.1 gm/dl Albumin 1.3 gm/dl Globulin 4.8 gm/dl Albumin/Globulin Ratio 0.3 Test 06/15/16 06:01 06/15/16 09:10 Bedside Glucose 213 mg/dl
[2016-06-15 10:24] LABS: MANUAL MICROSCOPIC REQUIRED? YES; REVIEW REQ? NO; SULFASALICYLIC ACID NEG (NEG); URINE APPEARANCE CLEAR (CLEAR); URINE COLOR ORANGE
[2016-06-15] MEDS: DEXTROSE 5% IV SCH ×2 (10:26→18:37)
[2016-06-15] MEDS: CHLOROTHIAZIDE IV SCH ×2 (10:26→18:37)
[2016-06-15] MEDS: CHOLECALCIFEROL 1000 INTER.UNIT TAB PO SCH ×2 (10:26→20:42)
[2016-06-15 10:28] LABS: URINE WBC >30 /hpf (0-5)
[2016-06-15 10:32] LABS: URINE BACTERIA 2+ (NEG)
[2016-06-15 10:35] LABS: URINE RBC 0-4 /hpf (0-4)
[2016-06-15] MEDS: POTASSIUM CHLR 20MEQ / WTR IV SCH ×2 (10:41→11:59)
--- NOTE | 2016-06-15 12:03 | Pharmacy Progress Note ---
Glycemic Control: Progress Nt Date of Service Jun 15, 2016. Scope Glycemic Pharmacist consulted by Yenny REED on 06/11/16 for glycemic control and to write orders per [facility] inpatient glycemic control protocol. Objective Accuchecks BSG (last 24hrs): Test 06/14/16 13:38 06/14/16 17:06 06/14/16 23:53 06/15/16 05:23 Bedside Glucose 259 mg/dl (70-90) 122 mg/dl (70-90) 214 mg/dl (70-90) Random Glucose 211 mg/dl (70-99) Test 06/15/16 06:01 Bedside Glucose 213 mg/dl (70-90) Laboratory Data (last 24hrs) Test 06/15/16 05:23 Anion Gap 7.0 mmol/L BUN/Creatinine Ratio 85.6 Blood Urea Nitrogen 53 mg/dl Creatinine 0.62 mg/dl Potassium Level 3.5 mmol/L Sodium Level 149 mmol/L White Blood Count 10.60 K/uL Red Blood Count 3.44 M/uL Hemoglobin 9.8 g/dL Hematocrit 31.8 % Mean Corpuscular Volume 92.4 fL Mean Corpuscular Hemoglobin 28.5 pg Mean Corpuscular Hemoglobin Concent 30.8 g/dl Platelet Count 383 K/uL Mean Platelet Volume 10.1 fL Neutrophils (%) (Auto) 81.4 % Lymphocytes (%) (Auto) 12.3 % Monocytes (%) (Auto) 5.4 % Eosinophils (%) (Auto) 0.4 % Basophils (%) (Auto) 0.2 % Neutrophils # (Auto) 8.64 K/uL Lymphocytes # (Auto) 1.30 K/uL Monocytes # (Auto) 0.57 K/uL Eosinophils # (Auto) 0.04 K/uL Basophils # (Auto) 0.02 K/uL HbA1c: Test 05/29/16 06:45 Hemoglobin A1c 6.0 % (4.5-5.6) H Recent Pertinent Medications Outpatient Anti-diabetic Regimen: * Novolog per sliding scale * A1c = 6 % 05/29/16 The patient is currently receiving: * Basal insulin: None * Correctional Insulin: Novolog Correction per scale Q 6 hours Goal Range: Low 120 mg/dL - High 160 mg/dL Correction Factor: 30 mg/dL/unit * Prandial insulin: Per carb ratio of 1 unit per ~9 grams CHO consumed -2 unit for Impact @20cc/hr, 4 units for Impact @40cc/hr, 6 units for Impact @60cc/hr, 7 units for Impact @70cc/hr * Oral Agents: None Risk Factors for Insulin Resistance: * Infection: on Tigecycline per ID recs for 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 * Diet: Impact running at 60cc/hr this AM, however is now switched to NovasVmedia Researchce Renal @ 35cc/hr (delivers 38.4gm CHO every 6 hours) * Mechanical Ventilation: Yes Assessment & Plan ASSESSMENT: 06/11/16 * Glycemic control deteriorated as tube feeds were advanced to goal * She currently has orders for correctional insulin only, will add a carb ratio in order to proactively cover CHO administration * Will not add basal insulin at this time as she did not require basal insulin IT SYSTEMS MANAGER, most recent A1c was 6.0, likely had adequate control with SSI alone IT SYSTEMS MANAGER 06/12/16 * Tube feeds ran until 0400 this AM and then were placed on hold due to patient nausea, bloating - no plans to restart tube feeds at this time * Despite adding prandial insulin to cover carbs in tube feeds yesterday BSGs did not drop to goal. If tube feeds are restarted she will likely require a larger prandial insulin dose (a CR of 1:12 was not adequate) * Fasting BSG elevated this AM, however feeds have only been on hold since 0400. I would expect that BSG will begin to trend down as it did prior this admission when she was not receiving tube feeds. No basal at this time 06/13/16 * Glycemic control has improved over last 24 hrs; BSGs have ranged 148-180; all at goal; all BSGs reflective of fasting state * No basal insulin required at this time * GI consulted for PEG placement, uncertain when this may be done * Will change BSG frequency back to Q 6 hrs at this time and adjust CR should PEG be placed in the next 24 hrs and TF's restarted 06/14/16 * PEG tube was placed yesterday afternoon * Impact feeds were restarted @1999 last evening and have been titrated up to 40cc/hr as of this AM * BSG control thus far has been good even after restarting tube feedings; RN's have been covering carbs delivered by feeds * Plan to continue w/ same insulin regimen today. If BSGs begin to rise, it is likely due to inadequate prandial insulin - will follow 06/15/16 * BSGs again trended upward with the resumption of continuous tube feeds; 8 units of Novolog were not able to bring BSGs back down to goal when receiving Impact @ 60cc/hr (delivered ~47gm CHO every 6 hours). Will need to increase the prandial insulin dose. * The patient will be starting Novasource renal @35cc/hr; carb content is different than Impact * Will change to Regular Insulin instead of Novolog Q 6 hrs to cover carbs in tube feeds as the p'kinetics are better suited for cont TFs * Would avoid basal insulin given how quickly BSGs fall when feeds are held and A1c of 6.0% with no need for basal insulin prior to admission PLAN FOR INPATIENT GLYCEMIC CONTROL: * No basal insulin at this time * Changing correction factor to 20 mg/dl/unit * Changing carb ratio to 1 unit per 7gm CHO * Novasource Renal @20cc/hr = 22gm CHO every 6 hrs (3 units) * Novasource Renal @30cc/hr = 33gm CHO every 6 hrs (5 units) * Novasource Renal @35cc/hr = 38gm CHO every 6 hrs (~6 units) * Changing goal range to Low 120 mg/dL - High 150 mg/dL * Please note that the plan above was derived based on current level of insulin resistance and hospital stress. These recommendations are appropriate for inpatient admission only. Plan of care upon discharge will need to be reassessed to avoid potential outpatient hypo/hyperglycemia. Thank you.
[2016-06-15] MEDS: INSULIN HUMAN REGULAR SC SCH ×3 (12:25→23:43)
[2016-06-15 16:24] LABS: BUN/CREATININE RATIO 83.6 (10-20); CREATININE 0.75 mg/dl (0.60-1.20)
[2016-06-15 16:25] LABS: POTASSIUM 4.7 mmol/L (3.5-5.1)
[2016-06-15] MEDS ORDERED: ONDANSETRON INJ 2 MG/ML 2 ML VIAL IV PRN (17:30)
[2016-06-15] MEDS ORDERED: MAGNESIUM OXIDE 400 MG TAB PO PRN (18:00)
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
[2016-06-15] MEDS: POLYETHYLENE (MIRALAX) 17 GM PACK PO SCH (20:42)
[2016-06-15] MEDS: QUETIAPINE FUMARATE 25 MG TAB PO SCH (20:42)
[2016-06-15] MEDS: ARTIFICIAL TEARS OP OINT 3.5 GM TUBE OPB SCH (20:42)
[2016-06-15] MEDS: SOLIFENACIN 10 MG TAB PO SCH (20:43)
[2016-06-15] MEDS: BISACODYL 10 MG SUPP PR SCH (23:41)
[2016-06-16] VITALS (22 sets, daily range): BP systolic 109–170; BP diastolic 48–102; PULSE 90–117; TEMP 36.8–38.6; O2SAT 92–98
[2016-06-16] MEDS: ALBUMIN HUMAN 25% 12.5 GM/50 ML VIAL IV SCH ×2 (01:54→02:05)
[2016-06-16] MEDS: ALBUT/IPRATROP 3MG/0.5MG NEB 3 ML VIAL INH SCH ×4 (01:57→19:51)
[2016-06-16] MEDS: FEEDING WATER FLUSH PEG SCH ×4 (01:57→08:32)
[2016-06-16] MEDS: CHLOROTHIAZIDE IV SCH (03:05)
[2016-06-16] MEDS: DEXTROSE 5% IV SCH (03:05)
[2016-06-16] MEDS: SODIUM CHLORIDE 0.9% IV SCH ×2 (03:53→16:11)
[2016-06-16] MEDS: TIGECYCLINE IV SCH ×2 (03:53→16:11)
[2016-06-16] MEDS: INSULIN HUMAN REGULAR SC SCH ×3 (05:42→18:41)
[2016-06-16 06:10] LABS: BASO % 0.1 %; BASO ABS # 0.01 K/uL (0-0.2); COMPLETE YES; EOS % 0.2 %; HEMATOCRIT 30.7 % (37-47); IG% 0.4 %; LYMPH % 6.1 %; LYMPH ABS # 0.73 K/uL (1.2-3.4); MEAN CORPUSCULAR HEMOGLOBIN 28.8 pg (25-34); MEAN CORPUSCULAR HGB CONC 30.3 g/dl (32-36); MEAN PLATELET VOLUME 10.3 fL (7.4-10.4); MONO % 6.2 %; PLATELET COUNT 356 K/uL (130-400); RED BLOOD COUNT 3.23 M/uL (4.2-5.4); WHITE BLOOD COUNT 11.97 K/uL (4.8-10.8)
[2016-06-16 06:39] LABS: BUN/CREATININE RATIO 86.9 (10-20); CALCIUM 8.9 mg/dl (8.5-10.1); CREATININE 0.75 mg/dl (0.60-1.20); MAGNESIUM 2.3 mg/dl (1.8-2.4); POTASSIUM 4.1 mmol/L (3.5-5.1)
[2016-06-16 06:46] LABS: PHOSPHORUS 4.7 mg/dl (2.5-4.9)
[2016-06-16] MEDS: ALLOPURINOL 100 MG TAB PO SCH (08:30)
[2016-06-16] MEDS: GABAPENTIN 250 MG/5 ML 470 ML BTL NG SCH ×3 (08:30→20:33)
[2016-06-16] MEDS: ASCORBIC ACID 500 MG TAB PO SCH ×2 (08:31→20:33)
[2016-06-16] MEDS: DIPYRIDAMOLE/ASPIRIN CAP PO SCH ×2 (08:31→20:33)
[2016-06-16] MEDS: CALCIUM 600MG + VIT D 400 IU TAB PO SCH ×2 (08:31→20:33)
[2016-06-16] MEDS: CLOPIDOGREL BISULFATE 75 MG TAB PO SCH (08:31)
[2016-06-16] MEDS: ASPIRIN 81 MG CHEW NG SCH (08:31)
[2016-06-16] MEDS: CHOLECALCIFEROL 1000 INTER.UNIT TAB PO SCH ×2 (08:31→20:33)
[2016-06-16] MEDS: THIAMINE HCL 100 MG TAB PO SCH (08:31)
[2016-06-16] MEDS: LANSOPRAZOLE SOLUTAB 30 MG NG SCH ×2 (08:31→20:33)
[2016-06-16] MEDS: ESCITALOPRAM OXALATE 20 MG TAB PO SCH (08:31)
[2016-06-16] MEDS: AMLODIPINE BESYLATE 5 MG TAB PO SCH (08:31)
[2016-06-16] MEDS: DOCUSATE SODIUM 100 MG/10 ML UDC NG SCH ×2 (08:31→20:33)
[2016-06-16] MEDS: BusPIRone 15 MG TAB PO SCH ×2 (08:31→20:33)
[2016-06-16] MEDS: PENTOSAN POLYSULFATE SODIUM 100 MG PO SCH ×2 (08:32→20:34)
[2016-06-16] MEDS: LIFITEGRAST 5% OP SCH ×2 (08:32→20:34)
[2016-06-16] MEDS: SODIUM CHLORIDE 0.65% NA SOLN 45 ML (OCEAN) SCH ×4 (08:32→20:34)
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
[2016-06-16] MEDS: PROSOURCE NOCARB 30ML/PKT PEG SCH (12:29)
[2016-06-16] MEDS: TUBE FEEDING WATER FLUSH PEG SCH ×3 (12:30→20:03)
--- NOTE | 2016-06-16 14:50 | Pharmacy Progress Note ---
Glycemic Control: Progress Nt Date of Service Jun 16, 2016. Scope Glycemic Pharmacist consulted by Melvin Marques PA-C on 06/11/16 for glycemic control and to write orders per [facility] inpatient glycemic control protocol. Objective Accuchecks BSG (last 24hrs): Test 06/15/16 15:33 06/15/16 18:33 06/16/16 05:49 06/16/16 12:27 Random Glucose 199 mg/dl (70-99) 203 mg/dl (70-99) Bedside Glucose 194 mg/dl (70-90) 209 mg/dl (70-90) Laboratory Data (last 24hrs) Test 06/15/16 15:33 06/16/16 05:49 Anion Gap 6.0 mmol/L 9.0 mmol/L BUN/Creatinine Ratio 83.6 86.9 Blood Urea Nitrogen 63 mg/dl 65 mg/dl Creatinine 0.75 mg/dl 0.75 mg/dl Potassium Level 4.7 mmol/L 4.1 mmol/L Sodium Level 144 mmol/L 145 mmol/L White Blood Count 11.97 K/uL Red Blood Count 3.23 M/uL Hemoglobin 9.3 g/dL Hematocrit 30.7 % Mean Corpuscular Volume 95.0 fL Mean Corpuscular Hemoglobin 28.8 pg Mean Corpuscular Hemoglobin Concent 30.3 g/dl Platelet Count 356 K/uL Mean Platelet Volume 10.3 fL Neutrophils (%) (Auto) 87.0 % Lymphocytes (%) (Auto) 6.1 % Monocytes (%) (Auto) 6.2 % Eosinophils (%) (Auto) 0.2 % Basophils (%) (Auto) 0.1 % Neutrophils # (Auto) 10.42 K/uL Lymphocytes # (Auto) 0.73 K/uL Monocytes # (Auto) 0.74 K/uL Eosinophils # (Auto) 0.02 K/uL Basophils # (Auto) 0.01 K/uL HbA1c: Test 05/29/16 06:45 Hemoglobin A1c 6.0 % (4.5-5.6) H Recent Pertinent Medications Outpatient Anti-diabetic Regimen: * Novolog Pump * A1c = 6.0 % 05/29/16 Risk Factors for Insulin Resistance: * Infection: on Tigecycline per ID recs for 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 * Diet: Novasource Renal @ 35cc/hr (delivers 38.4gm CHO every 6 hours) + Prosource Nocarb daily * Mechanical Ventilation: Yes Assessment & Plan ASSESSMENT: 06/11/16 * Glycemic control deteriorated as tube feeds were advanced to goal * She currently has orders for correctional insulin only, will add a carb ratio in order to proactively cover CHO administration * Will not add basal insulin at this time as she did not require basal insulin 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 If tube feeds are restarted she will likely require a larger prandial insulin dose (a CR of 1:12 was not adequate) * Fasting BSG elevated this AM, however feeds have only been on hold since 0400. I would expect that BSG will begin to trend down as it did prior this admission when she was not receiving tube feeds. No basal at this time 06/13/16 * Glycemic control has improved over last 24 hrs; BSGs have ranged 148-180; all at goal; all BSGs reflective of fasting state * No basal insulin required at this time * GI consulted for PEG placement, uncertain when this may be done * Will change BSG frequency back to Q 6 hrs at this time and adjust CR should PEG be placed in the next 24 hrs and TF's restarted 06/14/16 * PEG tube was placed yesterday afternoon * Impact feeds were restarted @1999 last evening and have been titrated up to 40cc/hr as of this AM * BSG control thus far has been good even after restarting tube feedings; RN's have been covering carbs delivered by feeds * Plan to continue w/ same insulin regimen today. If BSGs begin to rise, it is likely due to inadequate prandial insulin - will follow 06/15/16 * BSGs again trended upward with the resumption of continuous tube feeds; 8 units of Novolog were not able to bring BSGs back down to goal when receiving Impact @ 60cc/hr (delivered ~47gm CHO every 6 hours). Will need to increase the prandial insulin dose. * The patient will be starting Novasource renal @35cc/hr; carb content is different than Impact * Will change to Regular Insulin instead of Novolog Q 6 hrs to cover carbs in tube feeds as the p'kinetics are better suited for cont TFs * Would avoid basal insulin given how quickly BSGs fall when feeds are held and A1c of 6.0% with no need for basal insulin prior to admission 06/16/16 * BSGs elevated above goal range. Continue to be reluctant to add basal insulin as pt has not required in the past. Elevated BSGs are likely the result of continuous tubefeeds. * Will tighten Regular insulin parameters for additional coverage of tubefeeds. PLAN FOR INPATIENT GLYCEMIC CONTROL: * No basal insulin * Regular insulin [id number] * Tighten correction factor to 15 mg/dl/unit * Tighten carb ratio to 1 unit per 5 grams CHO consumed * Continue goal range of Low 120 mg/dL - High 150 mg/dL to aid in glycemic control RECOMMENDATIONS FOR DISCHARGE: * * Please note that the plan above was derived based on current level of insulin resistance and hospital stress. These recommendations are appropriate for inpatient admission only. Plan of care upon discharge will need to be reassessed to avoid potential outpatient hypo/hyperglycemia. Thank you.
[2016-06-16] MEDS: ACETAMINOPHEN SOLN 650MG/20.3 ML UDC PO PRN (18:46)
[2016-06-16] MEDS: QUETIAPINE FUMARATE 25 MG TAB PO SCH (20:33)
[2016-06-16] MEDS: POLYETHYLENE (MIRALAX) 17 GM PACK PO SCH (20:34)
[2016-06-16] MEDS: ARTIFICIAL TEARS OP OINT 3.5 GM TUBE OPB SCH (20:34)
[2016-06-16] MEDS: SOLIFENACIN 10 MG TAB PO SCH (20:34)
--- NOTE | 2016-06-16 20:39 | DIAGNOSTIC IMAGING REPORT ---
SINGLE VIEW CHEST CLINICAL HISTORY: Fever. FINDINGS: An AP, portable, upright chest radiograph is compared to study dated 06/13/2016. Correlation with chest CT dated 05/28/2016. The examination is degraded by portable technique and patient rotation. A tracheostomy, a right subclavian central venous infusion port, and a left subclavian central venous catheter are unchanged in position. The heart is enlarged. There is pulmonary vascular congestion. Bibasilar airspace consolidation is similar to previous. Barium pleural effusions are again noted. No pneumothorax is seen. The skeletal structures are osteopenic. The bony thorax is grossly intact. IMPRESSION: 1. Cardiomegaly with evidence of persistent congestive failure. 2. Bibasilar airspace consolidation has not significantly changed from 06/13/2016. 3. Layering pleural effusions are again noted. 4. Stable lines and tubes. Electronically signed by: Melvin Dominguez M.D. 06/16/2016 8:38 PM Dictated Date/Time: 06/16/2016 8:36 PM
[2016-06-16] MEDS: BISACODYL 10 MG SUPP PR SCH (23:20)
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
[2016-06-17] VITALS (19 sets, daily range): BP systolic 77–181; BP diastolic 61–118; PULSE 91–111; TEMP 37.2–38.7; O2SAT 95–98
[2016-06-17] MEDS: INSULIN HUMAN REGULAR SC SCH ×4 (00:02→20:59)
[2016-06-17] MEDS: TUBE FEEDING WATER FLUSH PEG SCH ×7 (00:02→23:48)
[2016-06-17] MEDS: ALBUT/IPRATROP 3MG/0.5MG NEB 3 ML VIAL INH SCH ×3 (02:40→14:55)
[2016-06-17] MEDS: TIGECYCLINE IV SCH ×2 (04:27→16:26)
[2016-06-17] MEDS: SODIUM CHLORIDE 0.9% IV SCH ×2 (04:27→16:26)
[2016-06-17] MEDS: ESCITALOPRAM OXALATE 20 MG TAB PO SCH (07:43)
[2016-06-17] MEDS: THIAMINE HCL 100 MG TAB PO SCH (07:43)
[2016-06-17] MEDS: DIPYRIDAMOLE/ASPIRIN CAP PO SCH ×2 (07:43→20:59)
[2016-06-17] MEDS: CHOLECALCIFEROL 1000 INTER.UNIT TAB PO SCH ×2 (07:43→20:59)
[2016-06-17] MEDS: DOCUSATE SODIUM 100 MG/10 ML UDC NG SCH ×2 (07:43→21:00)
[2016-06-17] MEDS: GABAPENTIN 250 MG/5 ML 470 ML BTL NG SCH ×3 (07:43→20:59)
[2016-06-17] MEDS: BusPIRone 15 MG TAB PO SCH ×2 (07:43→20:59)
[2016-06-17] MEDS: ASPIRIN 81 MG CHEW NG SCH (07:43)
[2016-06-17] MEDS: LANSOPRAZOLE SOLUTAB 30 MG NG SCH ×2 (07:43→20:59)
[2016-06-17] MEDS: ALLOPURINOL 100 MG TAB PO SCH (07:43)
[2016-06-17] MEDS: CALCIUM 600MG + VIT D 400 IU TAB PO SCH ×2 (07:43→20:59)
[2016-06-17] MEDS: ASCORBIC ACID 500 MG TAB PO SCH ×2 (07:43→20:59)
[2016-06-17] MEDS: CLOPIDOGREL BISULFATE 75 MG TAB PO SCH (07:43)
[2016-06-17] MEDS: LIFITEGRAST 5% OP SCH ×2 (07:44→21:00)
[2016-06-17] MEDS: SODIUM CHLORIDE 0.65% NA SOLN 45 ML (OCEAN) SCH ×4 (07:44→21:00)
[2016-06-17] MEDS: PENTOSAN POLYSULFATE SODIUM 100 MG PO SCH ×2 (07:45→21:00)
[2016-06-17 08:01] LABS: BASO % 0.3 %; BASO ABS # 0.03 K/uL (0-0.2); COMPLETE YES; EOS % 0.1 %; HEMATOCRIT 31.1 % (37-47); IG% 0.3 %; LYMPH % 8.8 %; LYMPH ABS # 0.92 K/uL (1.2-3.4); MEAN CELL VOLUME 94.2 fL (80-100); MEAN CORPUSCULAR HEMOGLOBIN 28.8 pg (25-34); MEAN CORPUSCULAR HGB CONC 30.5 g/dl (32-36); MEAN PLATELET VOLUME 9.8 fL (7.4-10.4); MONO % 6.5 %; PLATELET COUNT 323 K/uL (130-400); WHITE BLOOD COUNT 10.43 K/uL (4.8-10.8)
[2016-06-17 08:25] LABS: ISTAT ARTERIAL BLOOD GAS HCO3 29 meq/L (19-24); ISTAT ARTERIAL BLOOD GAS PCO2 47 mmHg (35-46); ISTAT ARTERIAL BLOOD GAS PO2 88 mmHg (80-95); ISTAT CARBON DIOXIDE 30 mEq/l (24-31); ISTAT DELIVERY SYSTEM Ventilator; ISTAT FIO2 40 %; ISTAT PEEP 0; ISTAT RATE 18; ISTAT SITE L Radial; VE 12; Vt 650
[2016-06-17 08:35] LABS: BUN/CREATININE RATIO 71.1 (10-20); CALCIUM 9.5 mg/dl (8.5-10.1); CREATININE 0.8 mg/dl (0.60-1.20); MAGNESIUM 2.2 mg/dl (1.8-2.4); POTASSIUM 3.6 mmol/L (3.5-5.1)
[2016-06-17 08:40] LABS: PHOSPHORUS 3.5 mg/dl (2.5-4.9)
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
[2016-06-17] MEDS ORDERED: HYDROCHLOROTHIAZIDE 25 MG TAB PO STA (10:38)
--- NOTE | 2016-06-17 10:46 | Pharmacy Progress Note ---
Glycemic Control: Progress Nt Date of Service Jun 17, 2016. Scope Glycemic Pharmacist consulted by Melvin Marques PA-C on 06/11/16 for glycemic control and to write orders per [facility] inpatient glycemic control protocol. Objective Accuchecks BSG (last 24hrs): Test 06/16/16 12:27 06/16/16 18:31 06/16/16 23:32 06/17/16 05:38 Bedside Glucose 209 mg/dl (70-90) 226 mg/dl (70-90) 170 mg/dl (70-90) 183 mg/dl (70-90) Test 06/17/16 07:55 Random Glucose 186 mg/dl (70-99) Laboratory Data (last 24hrs) Test 06/17/16 07:55 Anion Gap 8.0 mmol/L BUN/Creatinine Ratio 71.1 Blood Urea Nitrogen 57 mg/dl Creatinine 0.80 mg/dl Potassium Level 3.6 mmol/L Sodium Level 149 mmol/L White Blood Count 10.43 K/uL Red Blood Count 3.30 M/uL Hemoglobin 9.5 g/dL Hematocrit 31.1 % Mean Corpuscular Volume 94.2 fL Mean Corpuscular Hemoglobin 28.8 pg Mean Corpuscular Hemoglobin Concent 30.5 g/dl Platelet Count 323 K/uL Mean Platelet Volume 9.8 fL Neutrophils (%) (Auto) 84.0 % Lymphocytes (%) (Auto) 8.8 % Monocytes (%) (Auto) 6.5 % Eosinophils (%) (Auto) 0.1 % Basophils (%) (Auto) 0.3 % Neutrophils # (Auto) 8.76 K/uL Lymphocytes # (Auto) 0.92 K/uL Monocytes # (Auto) 0.68 K/uL Eosinophils # (Auto) 0.01 K/uL Basophils # (Auto) 0.03 K/uL HbA1c: Test 05/29/16 06:45 Hemoglobin A1c 6.0 % (4.5-5.6) H Recent Pertinent Medications Outpatient Anti-diabetic Regimen: * Novolog Pump * A1c = 6.0 % 05/29/16 Risk Factors for Insulin Resistance: * Infection: on Tigecycline per ID recs for 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 * Diet: Novasource Renal @ 35cc/hr (delivers 38.4gm CHO every 6 hours) + Prosource Nocarb daily * Mechanical Ventilation: Yes Assessment & Plan ASSESSMENT: 06/11/16 * Glycemic control deteriorated as tube feeds were advanced to goal * She currently has orders for correctional insulin only, will add a carb ratio in order to proactively cover CHO administration * Will not add basal insulin at this time as she did not require basal insulin 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 If tube feeds are restarted she will likely require a larger prandial insulin dose (a CR of 1:12 was not adequate) * Fasting BSG elevated this AM, however feeds have only been on hold since 0400. I would expect that BSG will begin to trend down as it did prior this admission when she was not receiving tube feeds. No basal at this time 06/13/16 * Glycemic control has improved over last 24 hrs; BSGs have ranged 148-180; all at goal; all BSGs reflective of fasting state * No basal insulin required at this time * GI consulted for PEG placement, uncertain when this may be done * Will change BSG frequency back to Q 6 hrs at this time and adjust CR should PEG be placed in the next 24 hrs and TF's restarted 06/14/16 * PEG tube was placed yesterday afternoon * Impact feeds were restarted @1999 last evening and have been titrated up to 40cc/hr as of this AM * BSG control thus far has been good even after restarting tube feedings; RN's have been covering carbs delivered by feeds * Plan to continue w/ same insulin regimen today. If BSGs begin to rise, it is likely due to inadequate prandial insulin - will follow 06/15/16 * BSGs again trended upward with the resumption of continuous tube feeds; 8 units of Novolog were not able to bring BSGs back down to goal when receiving Impact @ 60cc/hr (delivered ~47gm CHO every 6 hours). Will need to increase the prandial insulin dose. * The patient will be starting Novasource renal @35cc/hr; carb content is different than Impact * Will change to Regular Insulin instead of Novolog Q 6 hrs to cover carbs in tube feeds as the p'kinetics are better suited for cont TFs * Would avoid basal insulin given how quickly BSGs fall when feeds are held and A1c of 6.0% with no need for basal insulin prior to admission 06/16/16 * BSGs elevated above goal range. Continue to be reluctant to add basal insulin as pt has not required in the past. Elevated BSGs are likely the result of continuous tubefeeds. * Will tighten Regular insulin parameters for additional coverage of tubefeeds. 06/17/16 * BSG control has improved secondary to tightening of Regular insulin parameters yesterday. Improved coverage of continuous tubefeeds. * Since change in Novolog parameters: BSG = 226 --> 170 --> 183 * No changes warranted presently. * Continue to hold basal insulin. CONTINUE INPATIENT GLYCEMIC CONTROL: * No basal insulin * Regular insulin [id number] * Tighten correction factor to 15 mg/dl/unit * Tighten carb ratio to 1 unit per 5 grams CHO consumed * Continue goal range of Low 120 mg/dL - High 150 mg/dL to aid in glycemic control * Please note that the plan above was derived based on current level of insulin resistance and hospital stress. These recommendations are appropriate for inpatient admission only. Plan of care upon discharge will need to be reassessed to avoid potential outpatient hypo/hyperglycemia. Thank you.
[2016-06-17] MEDS: NOVASOURCE RENAL 1000ML BAG GT SCH ×2 (11:55→21:00)
[2016-06-17] MEDS: AMLODIPINE BESYLATE 5 MG TAB PO SCH (11:55)
[2016-06-17] MEDS: PROSOURCE NOCARB 30ML/PKT PEG SCH (11:56)
--- NOTE | 2016-06-17 12:32 | DIAGNOSTIC IMAGING REPORT ---
BILATERAL LOWER EXTREMITY VENOUS DOPPLER HISTORY: Pain. Edema. r/o dv COMPARISON STUDY: None. FINDINGS: There is normal compressibility, flow, and augmentation within the bilateral lower extremity deep venous systems. IMPRESSION: No DVT within the right or left lower extremity. Electronically signed by: Pollo Sultana M.D. 06/17/2016 12:30 PM Dictated Date/Time: 06/17/2016 12:30 PM
[2016-06-17] MEDS: ACETAMINOPHEN SOLN 650MG/20.3 ML UDC PO PRN ×2 (12:46→18:07)
[2016-06-17] MEDS: IPRATROPIUM BROMIDE HFA INHALER INH SCH ×2 (14:20→19:20)
[2016-06-17] MEDS: ALBUTEROL HFA 8 GM INHALER INH SCH ×2 (14:20→19:20)
[2016-06-17] MEDS: MELATONIN 3 MG TAB PO PRN (14:55)
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
[2016-06-17 17:04] LABS: ISTAT ARTERIAL BLOOD GAS HCO3 28 meq/L (19-24); ISTAT ARTERIAL BLOOD GAS PCO2 32 mmHg (35-46); ISTAT ARTERIAL BLOOD GAS PO2 120 mmHg (80-95); ISTAT ARTERIAL BLOOD GAS pH 7.56 (7.35-7.45); ISTAT CARBON DIOXIDE 29 mEq/l (24-31); ISTAT DELIVERY SYSTEM Ventilator; ISTAT FIO2 4 %; ISTAT RATE 18; ISTAT SITE L Radial; VE 12.4; Vt 600
[2016-06-17 19:22] LABS: ISTAT ALLEN TEST Pass; ISTAT ARTERIAL BLOOD GAS HCO3 28 meq/L (19-24); ISTAT ARTERIAL BLOOD GAS PCO2 37 mmHg (35-46); ISTAT ARTERIAL BLOOD GAS PO2 76 mmHg (80-95); ISTAT CARBON DIOXIDE 29 mEq/l (24-31); ISTAT DELIVERY SYSTEM Ventilator; ISTAT FIO2 0 %; ISTAT RATE 14; ISTAT SITE L Radial; VE 12.1; Vt 500
[2016-06-17] MEDS: POLYETHYLENE (MIRALAX) 17 GM PACK PO SCH (21:00)
[2016-06-17] MEDS: ARTIFICIAL TEARS OP OINT 3.5 GM TUBE OPB SCH (21:00)
[2016-06-17] MEDS ORDERED: QUETIAPINE FUMARATE 25 MG TAB PO SCH (21:00)
[2016-06-17] MEDS: SOLIFENACIN 10 MG TAB PO SCH (21:01)
[2016-06-17] MEDS: BISACODYL 10 MG SUPP PR SCH (21:01)
[2016-06-18] VITALS (17 sets, daily range): BP systolic 129–189; BP diastolic 54–105; PULSE 79–96; TEMP 36.9–39.3; O2SAT 96–98
[2016-06-18 00:23] LABS: ISTAT ALLEN TEST Pass; ISTAT ARTERIAL BLOOD GAS HCO3 28 meq/L (19-24); ISTAT ARTERIAL BLOOD GAS PCO2 40 mmHg (35-46); ISTAT ARTERIAL BLOOD GAS PO2 78 mmHg (80-95); ISTAT ARTERIAL BLOOD GAS pH 7.46 (7.35-7.45); ISTAT CARBON DIOXIDE 29 mEq/l (24-31); ISTAT DELIVERY SYSTEM Ventilator; ISTAT FIO2 0 %; ISTAT PEEP 0; ISTAT RATE 14; ISTAT SITE L Radial; VE 10.1; Vt 500
[2016-06-18] MEDS: ALBUTEROL HFA 8 GM INHALER INH SCH ×4 (02:10→19:13)
[2016-06-18] MEDS: IPRATROPIUM BROMIDE HFA INHALER INH SCH ×4 (02:10→19:13)
[2016-06-18] MEDS: TIGECYCLINE IV SCH ×2 (03:49→15:29)
[2016-06-18] MEDS: TUBE FEEDING WATER FLUSH PEG SCH ×5 (03:49→20:00)
[2016-06-18] MEDS: SODIUM CHLORIDE 0.9% IV SCH ×2 (03:49→15:29)
[2016-06-18 05:45] LABS: BASO % 0.3 %; BASO ABS # 0.03 K/uL (0-0.2); COMPLETE YES; EOS % 0.5 %; HEMATOCRIT 33.1 % (37-47); IG% 0.5 %; LYMPH % 11.8 %; LYMPH ABS # 1.26 K/uL (1.2-3.4); MEAN CELL VOLUME 94.3 fL (80-100); MEAN CORPUSCULAR HEMOGLOBIN 28.5 pg (25-34); MEAN CORPUSCULAR HGB CONC 30.2 g/dl (32-36); MEAN PLATELET VOLUME 10.5 fL (7.4-10.4); MONO % 8.6 %; NEUT % 78.3 %; PLATELET COUNT 308 K/uL (130-400); RED BLOOD COUNT 3.51 M/uL (4.2-5.4); WHITE BLOOD COUNT 10.68 K/uL (4.8-10.8)
[2016-06-18 06:12] LABS: ISTAT ALLEN TEST Pass; ISTAT ARTERIAL BLOOD GAS HCO3 29 meq/L (19-24); ISTAT ARTERIAL BLOOD GAS PCO2 42 mmHg (35-46); ISTAT ARTERIAL BLOOD GAS PO2 80 mmHg (80-95); ISTAT ARTERIAL BLOOD GAS pH 7.46 (7.35-7.45); ISTAT CARBON DIOXIDE 30 mEq/l (24-31); ISTAT DELIVERY SYSTEM Ventilator; ISTAT FIO2 0 %; ISTAT PEEP 0; ISTAT RATE 14; ISTAT SITE L Radial; VE 9.6; Vt 500
[2016-06-18 06:21] LABS: CALCIUM 9.4 mg/dl (8.5-10.1); CREATININE 0.7 mg/dl (0.60-1.20); POTASSIUM 2.8 mmol/L (3.5-5.1)
[2016-06-18] MEDS ORDERED: NURSING VERBAL MED ORDER ONE ×2 (06:45→19:45)
[2016-06-18] MEDS ORDERED: POTASSIUM CHLORIDE 20 MEQ/15 ML UDC PO ONE (07:30)
[2016-06-18] MEDS ORDERED: HYDROCHLOROTHIAZIDE 50 MG TAB PO SCH (09:00)
[2016-06-18] MEDS: NOVASOURCE RENAL 1000ML BAG GT SCH (09:00)
[2016-06-18] MEDS: INSULIN HUMAN REGULAR SC SCH ×3 (09:00→18:35)
[2016-06-18] MEDS: DOCUSATE SODIUM 100 MG/10 ML UDC NG SCH ×2 (09:06→20:39)
[2016-06-18] MEDS: GABAPENTIN 250 MG/5 ML 470 ML BTL NG SCH ×3 (09:06→20:47)
[2016-06-18] MEDS: CHOLECALCIFEROL 1000 INTER.UNIT TAB PO SCH ×2 (09:07→20:40)
[2016-06-18] MEDS: THIAMINE HCL 100 MG TAB PO SCH (09:07)
[2016-06-18] MEDS: DIPYRIDAMOLE/ASPIRIN CAP PO SCH ×2 (09:07→20:44)
[2016-06-18] MEDS: ALLOPURINOL 100 MG TAB PO SCH (09:07)
[2016-06-18] MEDS: LANSOPRAZOLE SOLUTAB 30 MG NG SCH ×2 (09:07→20:41)
[2016-06-18] MEDS: CLOPIDOGREL BISULFATE 75 MG TAB PO SCH (09:07)
[2016-06-18] MEDS: BusPIRone 15 MG TAB PO SCH (09:07)
[2016-06-18] MEDS: ASPIRIN 81 MG CHEW NG SCH (09:07)
[2016-06-18] MEDS: AMLODIPINE BESYLATE 5 MG TAB PO SCH (09:07)
[2016-06-18] MEDS: ESCITALOPRAM OXALATE 20 MG TAB PO SCH (09:07)
[2016-06-18] MEDS: ASCORBIC ACID 500 MG TAB PO SCH ×2 (09:07→20:41)
[2016-06-18] MEDS: CALCIUM 600MG + VIT D 400 IU TAB PO SCH ×2 (09:07→20:43)
[2016-06-18] MEDS: LIFITEGRAST 5% OP SCH ×2 (09:08→20:45)
[2016-06-18] MEDS: SODIUM CHLORIDE 0.65% NA SOLN 45 ML (OCEAN) SCH ×4 (09:08→20:39)
[2016-06-18] MEDS: PENTOSAN POLYSULFATE SODIUM 100 MG PO SCH ×2 (09:09→20:44)
[2016-06-18] MEDS ORDERED: LORAZEPAM 0.5 MG TAB PO STA (09:40)
[2016-06-18] MEDS ORDERED: IMPACT LIQ 1000 ML BAG PEG SCH (09:45)
[2016-06-18] MEDS ORDERED: LORAZEPAM 0.5 MG TAB PO PRN (09:45)
[2016-06-18] MEDS ORDERED: PROSOURCE NOCARB 30ML/PKT PEG SCH (10:30)
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
[2016-06-18] MEDS ORDERED: INSULIN GLARGINE SOLOSTAR 100 UNITS/ML 3 ML PEN SC ONE (12:15)
--- NOTE | 2016-06-18 12:48 | Infectious Disease Progress Nt ---
Progress Note Date of Service Jun 18, 2016. Subjective Pt evaluation today including: conversation w/ patient, conversation w/ family (caregiver), physical exam, chart review, lab review, review of studies, conversation w/ senior science consultant (Dr. Mckeon ), review of inpatient medication list WBC count today 10.68. Repeat urine culture continues to grow Non-Merari Albicans Yeast. Repeat blood cultures are showing no growth to date. Venous Doppler showed n oDVT in the bilateral lower extremities. Patient is lethargic today and does not make eye contact or respond this morning. All Other Systems: Reviewed and Negative Medications Current Inpatient Medications Medications (Trade) Dose Ordered Sig/Tasha Route Start Time Stop Time Status Last Admin Dose Admin Levalbuterol (Xopenex 1.25MG/ 3ML Neb) 1.25 mg Q4H PRN INH 05/28/16 23:00 06/27/16 22:59 Allopurinol (Zyloprim Tab) 100 mg DAILY PO 05/29/16 09:00 06/28/16 08:59 06/18/16 09:07 100 MG Ascorbic Acid (Vitamin C Tab) 500 mg BID PO 05/29/16 09:00 06/28/16 08:59 06/18/16 09:07 500 MG Dipyridamole/ Aspirin (Aggrenox 200MG/ 25MG Cap) 1 cap BID PO 05/29/16 09:00 06/28/16 08:59 06/18/16 09:07 1 CAP Buspirone HCl (BusPAR TAB) 7.5 mg BID PO 05/29/16 09:00 06/28/16 08:59 06/18/16 09:07 7.5 MG Calcium/Vitamin D (Caltrate Plus Tab) 1 tab BID PO 05/29/16 09:00 06/28/16 08:59 06/18/16 09:07 1 TAB Cholecalciferol (Vitamin D Tab) 1,000 inter.unit BID PO 05/29/16 09:00 06/28/16 08:59 06/18/16 09:07 1,000 INTER.UNIT Clopidogrel Bisulfate (plAVix TAB) 75 mg DAILY PO 05/29/16 09:00 06/28/16 08:59 06/18/16 09:07 75 MG Escitalopram Oxalate (Lexapro Tab) 20 mg QAM PO 05/29/16 09:00 06/28/16 08:59 06/18/16 09:07 20 MG Magnesium Chloride (Slow-Mag Tab) 64 mg BID PO 05/29/16 09:00 06/28/16 08:59 Future Hold 06/06/16 21:31 64 MG Phenazopyridine HCl (Pyridium Tab) 200 mg DAILY PRN PO 05/28/16 23:00 06/27/16 22:59 06/14/16 20:35 200 MG Artificial Tears (Artificial Tears) 2 drops BID PRN OPB 05/29/16 04:45 06/28/16 04:44 06/10/16 07:57 2 DROPS Solifenacin (Vesicare) 10 mg HS PO 05/29/16 21:00 06/28/16 20:59 06/17/16 21:01 10 MG Thiamine HCl (Vitamin B-1 Tab) 100 mg DAILY PO 05/29/16 09:00 06/28/16 08:59 06/18/16 09:07 100 MG Artificial Tears (Lacri-Lube Oph Oint) 1 appln HS OPB 05/29/16 21:00 06/28/16 20:59 06/17/16 21:00 1 APPLN Bisacodyl (Dulcolax Supp) 10 mg TuTh@0530 MI 05/29/16 06:15 06/28/16 06:14 05/31/16 05:30 10 MG Bisacodyl (Dulcolax Supp) 10 mg SuMoWeFrSa@2330 MI 05/30/16 23:30 06/29/16 23:29 06/15/16 23:41 10 MG Polyethylene (Miralax Powder Packet) 17 gm QPM PO 05/29/16 21:00 06/28/16 20:59 06/16/16 20:34 17 GM Sodium Chloride ([place] Nasal [place]) 2 sprays QID NA 05/30/16 21:00 06/29/16 20:59 06/18/16 09:08 2 SPRAYS Multi-Ingredient Ointment (Eucerin Unscented Cr) 0.25 appln BID PRN EXT 05/30/16 22:00 06/29/16 21:59 06/10/16 08:21 0.25 APPLN Lifitegrast (Xiidra 5% Oph Soln) 1 drop BID OP 06/06/16 21:00 07/06/16 20:59 06/18/16 09:08 1 DROP Lansoprazole (Prevacid Solutab) 30 mg BID NG 06/08/16 21:00 07/08/16 20:59 06/18/16 09:07 30 MG Aspirin (Aspirin Chew) 81 mg DAILY NG 06/09/16 09:00 07/09/16 08:59 06/18/16 09:07 81 MG Docusate Sodium (coLACE SYRUP) 100 mg BID NG 06/08/16 21:00 07/08/16 20:59 06/18/16 09:06 100 MG Acetaminophen (Tylenol Soln) 650 mg Q4H PRN PO 06/09/16 09:45 07/09/16 09:44 06/17/16 18:07 650 MG Gabapentin (Neurontin) 100 mg QAM NG 06/10/16 09:00 07/09/16 08:59 06/18/16 09:06 100 MG Gabapentin (Neurontin) 200 mg DAILY@1600 NG 06/09/16 16:00 07/08/16 15:59 06/17/16 16:26 200 MG Gabapentin 600 mg 600 mg HS NG 06/09/16 21:00 07/08/16 20:59 06/17/16 20:59 600 MG Tigecycline/ Sodium Chloride (Tygacil Inj/Nss 100ml) 105 ml @ 200 mls/hr Q12@0400,1600 IV 06/11/16 04:00 06/19/16 03:59 06/18/16 03:49 200 MLS/HR Miscellaneous Information (Consult Glycemic Management Pharmacy) 1 ea UD N/A 06/11/16 09:42 07/11/16 09:41 Simethicone (Mylicon Chew Tab) 80 mg Q6H PRN PO 06/11/16 23:00 07/11/16 22:59 06/11/16 23:51 80 MG Morphine Sulfate (MoRPHine SULFATE INJ) 2 mg Q30M PRN IV 06/13/16 14:45 06/27/16 14:44 Heparin Sodium (Porcine) (Heparin 100 Unit/ml 5ml Flush) 5 ml PRN PRN IV 06/14/16 17:00 07/14/16 16:59 06/14/16 19:17 5 ML Pentosan Polysulfate Sodium (Elmiron) 100 mg BID PO 06/14/16 21:00 07/14/16 20:59 06/18/16 09:09 100 MG Enteral Nutritional Formula (Prosource No Carb) 30 ml DAILY@1200 PEG 06/15/16 12:00 07/15/16 11:59 06/17/16 11:56 30 ML Magnesium Oxide (Mag-Ox Tab) 400 mg HS PRN PO 06/15/16 18:00 07/15/16 17:59 06/17/16 15:38 400 MG Sterile Water (Tube Feeding Water Flush) 1 ea Q4H PEG 06/16/16 10:00 07/16/16 09:59 06/18/16 09:08 1 EA Hydrochlorothiazide (Hydrochlorothiazide Tab) 50 mg QAM PO 06/18/16 09:00 07/18/16 08:59 Future Hold Ipratropium [place] (Atrovent Hfa Inhaler) 4 puffs Q6 INH 06/17/16 15:00 07/17/16 14:59 06/18/16 07:43 4 PUFFS Albuterol (Ventolin Hfa Inhaler) 4 puffs Q6 INH 06/17/16 15:00 07/17/16 14:59 06/18/16 07:43 4 PUFFS Amlodipine Besylate (Norvasc Tab) 5 mg DAILY PO 06/18/16 09:00 07/18/16 08:59 06/18/16 09:07 5 MG Lorazepam (Ativan Tab) 0.5 mg Q4H PRN PO 06/18/16 09:45 07/18/16 09:44 Enteral Nutritional Formula 300 ml 300 ml TID@0600,1200,1800 PEG 06/18/16 12:00 07/18/16 11:59 Amphotericin B/ Sterile Water (Fungizone Irrigation Inj/ Sterile Water 1000 ml) 1,000 ml @ 41.667 mls/ hr DAILY@1200 IR 06/18/16 12:45 06/23/16 12:44 Insulin Human Regular (novoLIN-R) SLIDING SCALE TID@0600,1200,1800 SC 06/18/16 12:00 07/18/16 11:59 Insulin Human Regular (novoLIN-R) SLIDING SCALE DAILY@0000 SC 06/19/16 00:00 07/19/16 00:00 Objective Vital Signs Date Time Temp Pulse Resp B/P Pulse Ox O2 Delivery O2 Flow Rate FiO2 06/18/16 12:00 84 26 140/80 97 Mechanical Ventilator 3.0 06/18/16 12:00 Mechanical Ventilator 4.0 06/18/16 10:04 37.6 96 26 165/90 97 Mechanical Ventilator 40 06/18/16 08:00 37.8 85 22 169/74 96 Mechanical Ventilator 40 06/18/16 08:00 Mechanical Ventilator 40 06/18/16 08:00 Mechanical Ventilator 06/18/16 08:00 40 06/18/16 06:16 87 23 182/85 97 168/84 06/18/16 06:00 86 28 170/105 97 06/18/16 05:00 87 23 178/77 97 06/18/16 04:17 88 31 171/71 97 06/18/16 04:00 40 06/18/16 04:00 36.9 88 24 189/95 98 06/18/16 04:00 97 Mechanical Ventilator 4.0 06/18/16 03:00 89 24 158/85 97 06/18/16 02:00 89 19 154/54 97 06/18/16 01:00 90 20 152/105 97 06/18/16 00:01 37.2 94 24 133/61 97 06/17/16 23:59 40 06/17/16 23:59 97 Mechanical Ventilator 4.0 06/17/16 23:00 91 18 156/79 97 06/17/16 22:00 93 23 173/86 97 06/17/16 21:01 98 23 181/80 98 06/17/16 20:00 38.7 06/17/16 20:00 96 Mechanical Ventilator 4.0 06/17/16 19:31 104 32 172/76 96 06/17/16 18:02 38.4 104 22 116/98 96 Mechanical Ventilator 40 06/17/16 17:00 40 06/17/16 16:00 108 24 147/94 97 Mechanical Ventilator 40 06/17/16 16:00 40 06/17/16 16:00 Mechanical Ventilator 40 06/17/16 14:20 40 06/17/16 14:00 38.4 111 24 110/67 98 Mechanical Ventilator 40 Physical Exam General Appearance: + pertinent finding (lethargic, does not respond well this morning) Eyes: sclerae normal Neck: + pertinent finding (tracheostomy) Respiratory/Chest: + pertinent finding (ventilated. Improved coarse breath sounds) Cardiovascular: regular rate, rhythm Abdomen: + distended Extremities: + pertinent finding (quadriplegic) Neurologic/Psychiatric: + disoriented Skin: normal color, warm/dry, no rash Laboratory Results Item Value Date Time Blood Culture - Preliminary Resulted 06/16/162012 Blood NO GROWTH TO DATE. Blood Culture - Preliminary Resulted 06/16/162008 Blood NO GROWTH TO DATE. Last 24 Hours Test 06/17/16 16:50 06/17/16 19:10 06/17/16 20:55 06/18/16 00:10 Blood Gas Sample Site L Radial L Radial L Radial Bedside Blood Gas pH (LAB) 7.56 7.50 7.46 Bedside Blood Gas pCO2 (LAB) 32 mmHg 37 mmHg 40 mmHg Bedside Blood Gas pO2 (LAB) 120 mmHg 76 mmHg 78 mmHg Bedside Blood Gas HCO3 (LAB) 28 meq/L 28 meq/L 28 meq/L Bedside Blood Gas Total CO2 29 mEq/l 29 mEq/l 29 mEq/l Bedside Blood Gas Base Excess (LAB) 6.0 meq/L 6.0 meq/L 4.0 meq/L Bedside Blood Gas O2 Saturation 99.0 % 95.0 % 95.0 % Yogesh Test NA Pass Pass Oxygen Delivery Device Ventilator Ventilator Ventilator Bedside Oxygen Rate (breaths/min) 18 14 14 Blood Gas Minute Ventilation 12.4 12.1 10.1 Bedside FiO2 4 % 0 % 0 % Blood Gas Tidal Volume 600 500 500 Bedside Glucose 208 mg/dl Blood Gas PEEP 0 Test 06/18/16 05:30 06/18/16 06:00 06/18/16 09:58 White Blood Count 10.68 K/uL Red Blood Count 3.51 M/uL Hemoglobin 10.0 g/dL Hematocrit 33.1 % Mean Corpuscular Volume 94.3 fL Mean Corpuscular Hemoglobin 28.5 pg Mean Corpuscular Hemoglobin Concent 30.2 g/dl Platelet Count 308 K/uL Mean Platelet Volume 10.5 fL Neutrophils (%) (Auto) 78.3 % Lymphocytes (%) (Auto) 11.8 % Monocytes (%) (Auto) 8.6 % Eosinophils (%) (Auto) 0.5 % Basophils (%) (Auto) 0.3 % Neutrophils # (Auto) 8.37 K/uL Lymphocytes # (Auto) 1.26 K/uL Monocytes # (Auto) 0.92 K/uL Eosinophils # (Auto) 0.05 K/uL Basophils # (Auto) 0.03 K/uL RDW Standard Deviation 61.0 fL RDW Coefficient of Variation 17.9 % Immature Granulocyte % (Auto) 0.5 % Immature Granulocyte # (Auto) 0.05 K/uL Sodium Level 151 mmol/L Potassium Level 2.8 mmol/L Chloride Level 111 mmol/L Carbon Dioxide Level 33 mmol/L Anion Gap 7.0 mmol/L Blood Urea Nitrogen 41 mg/dl Creatinine 0.70 mg/dl Est Creatinine Clear Calc Drug Dose 66.1 ml/min Estimated GFR () 102.5 Estimated GFR (Non- 88.4 BUN/Creatinine Ratio 59.0 Random Glucose 195 mg/dl Calcium Level 9.4 mg/dl Phosphorus Level 2.1 mg/dl Magnesium Level 2.0 mg/dl Total Bilirubin 0.4 mg/dl Direct Bilirubin 0.1 mg/dl Aspartate Amino Transf (AST/SGOT) 11 U/L Alanine Aminotransferase (ALT/SGPT) 10 U/L Alkaline Phosphatase 165 U/L Total Protein 7.1 gm/dl Albumin 1.8 gm/dl Blood Gas Sample Site L Radial Bedside Blood Gas pH (LAB) 7.46 Bedside Blood Gas pCO2 (LAB) 42 mmHg Bedside Blood Gas pO2 (LAB) 80 mmHg Bedside Blood Gas HCO3 (LAB) 29 meq/L Bedside Blood Gas Total CO2 30 mEq/l Bedside Blood Gas Base Excess (LAB) 6.0 meq/L Bedside Blood Gas O2 Saturation 95.0 % Yogesh Test Pass Oxygen Delivery Device Ventilator Bedside Oxygen Rate (breaths/min) 14 Blood Gas Minute Ventilation 9.6 Bedside FiO2 0 % Blood Gas Tidal Volume 500 Blood Gas PEEP 0 Bedside Glucose 205 mg/dl Assessment and Plan (1) Quadriplegia Status: Chronic Onset: 10/23/2010 Patient with history of recurrent UTI's and pneumonia with respiratory failure. Now with repeat urine culture growing Non-Merari Albicans yeast. 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 Will start Amphotericin bladder irrigation x 5 days. Do not feel that she needs further Gentamicin irrigation of the bladder. She is also currently on Tigecycline. She is on day 8 of this medication. Will continue to complete [address] Mckeon- may consider inhaled Gentamicin for continued treatment after IV abx. Need to discuss with pulmonary. Case reviewed and agree with above assessment.
--- NOTE | 2016-06-18 13:01 | Pharmacy Progress Note ---
Glycemic Control: Progress Nt Date of Service Jun 18, 2016. Scope Glycemic Pharmacist consulted for glycemic control and to write orders per [facility] inpatient glycemic control protocol. Objective Accuchecks BSG (last 24hrs): Test 06/17/16 20:55 06/18/16 05:30 06/18/16 09:58 Bedside Glucose 208 mg/dl (70-90) 205 mg/dl (70-90) Random Glucose 195 mg/dl (70-99) Laboratory Data (last 24hrs) Test 06/18/16 05:30 Anion Gap 7.0 mmol/L BUN/Creatinine Ratio 59.0 Blood Urea Nitrogen 41 mg/dl Creatinine 0.70 mg/dl Potassium Level 2.8 mmol/L Sodium Level 151 mmol/L White Blood Count 10.68 K/uL Red Blood Count 3.51 M/uL Hemoglobin 10.0 g/dL Hematocrit 33.1 % Mean Corpuscular Volume 94.3 fL Mean Corpuscular Hemoglobin 28.5 pg Mean Corpuscular Hemoglobin Concent 30.2 g/dl Platelet Count 308 K/uL Mean Platelet Volume 10.5 fL Neutrophils (%) (Auto) 78.3 % Lymphocytes (%) (Auto) 11.8 % Monocytes (%) (Auto) 8.6 % Eosinophils (%) (Auto) 0.5 % Basophils (%) (Auto) 0.3 % Neutrophils # (Auto) 8.37 K/uL Lymphocytes # (Auto) 1.26 K/uL Monocytes # (Auto) 0.92 K/uL Eosinophils # (Auto) 0.05 K/uL Basophils # (Auto) 0.03 K/uL HbA1c: Test 05/29/16 06:45 Hemoglobin A1c 6.0 % (4.5-5.6) H Recent Pertinent Medications Outpatient Anti-diabetic Regimen: * Novolog SSI * A1c = 6.0 % 05/29/16 The patient is currently receiving: * Basal insulin: None * Correctional Insulin: Novolog Correction per scale ACHS Goal Range: Low 120 mg/dL - High 150 mg/dL Correction Factor: 15 mg/dL/unit * Prandial insulin: Per carb ratio of 1 unit per 5 grams CHO consumed Risk Factors for Insulin Resistance: * Infection: Aspiration pnx secondary to Acinetobacter baumannii and ? fungal UTI - on Tigecycline and amphotericin bladder irrigation * Diet: Novasource Renal boluses @ 300 mL TID (delivers 55 gm CHO per bolus) + Prosource Nocarb daily * Mechanical Ventilation: Yes Assessment & Plan ASSESSMENT: * ADA & AACE recommend a goal blood sugar range 140-180 mg/dl for the majority of critically ill & non-critically ill patients. However, more stringent targets may be selected in individual cases. 06/16/16 * BSGs elevated above goal range. Continue to be reluctant to add basal insulin as pt has not required in the past. Elevated BSGs are likely the result of continuous tubefeeds. * Will tighten Regular insulin parameters for additional coverage of tubefeeds. 06/17/16 * BSG control has improved secondary to tightening of Regular insulin parameters yesterday. Improved coverage of continuous tubefeeds. * Since change in Novolog parameters: BSG = 226 --> 170 --> 183 * No changes warranted presently. * Continue to hold basal insulin. 06/18/16 * BSG's ranging 202-208 mg/dL over 24 hours. * Amphotericin bladder irrigation started today * AM fasting BSG persistently elevated - will give one-time dose of Lantus at low dose. * Patient remains in ICU - physiological stressors likely more than previous admissions when she did not require basal insulin and her total daily insulin dose was significantly reduced compared to current requirements * Novasource maintained at 300 mL TID, but adjusted times to 0600,1200,1800 to help prevent insulin stacking * Will add overnight check at 0000 with higher goal range to prevent hypoglycemia PLAN FOR INPATIENT GLYCEMIC CONTROL: * Add Basal insulin with LANTUS 5 units SQ x1 now * Correctional Insulin with REGULAR Q6hrs (TID@06,12,18 add Daily@00 order) * Increase Goal Range: 120 - 160 mg/dL (140-180 mg/dL at 0000 check only) * Correction Factor: 15 mg/dL/unit * Nutritional / Prandial insulin per carb ratio of 1 unit per 5 grams CHO consumed * Please note that the plan above was derived based on current level of insulin resistance and hospital stress. These recommendations are appropriate for inpatient admission only. Plan of care upon discharge will need to be reassessed to avoid potential outpatient hypo/hyperglycemia. Thank you.
[2016-06-18] MEDS: PROSOURCE NOCARB 30ML/PKT PEG SCH (13:22)
[2016-06-18] MEDS: NOVASOURCE RENAL 1000ML BAG PEG SCH ×2 (13:22→17:06)
[2016-06-18] MEDS: AMPHOTERICIN B IRRIGATION INJ 50 MG in STERILE WATER 1000 ML 1,000 ML IR SCH (14:28)
[2016-06-18] MEDS ORDERED: POTASSIUM PHOS 3 MMOL/1 ML INFUSION IV STA (14:42)
[2016-06-18] MEDS: ACETAMINOPHEN SOLN 650MG/20.3 ML UDC PO PRN ×2 (15:02→15:29)
[2016-06-18] MEDS ORDERED: POTASSIUM PHOSPHATE INJ 21 MMOL in SODIUM CHLORIDE 0.9% 500ML 500 ML IV ONE (15:30)
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
[2016-06-18] MEDS ORDERED: NURSING VERBAL MED ORDER STA (17:56)
[2016-06-18] MEDS ORDERED: ACETAMINOPHEN IV 100 ML IV ONE (18:30)
[2016-06-18] MEDS ORDERED: IBUPROFEN SUSPENSION 100MG/5ML 120ML GT SCH ×2 (20:00)
[2016-06-18] MEDS: ARTIFICIAL TEARS OP OINT 3.5 GM TUBE OPB SCH (20:39)
[2016-06-18] MEDS: BISACODYL 10 MG SUPP PR SCH (20:40)
[2016-06-18] MEDS: POLYETHYLENE (MIRALAX) 17 GM PACK PO SCH (20:42)
[2016-06-18] MEDS: SOLIFENACIN 10 MG TAB PO SCH (20:43)
[2016-06-18] MEDS: LORAZEPAM 0.5 MG TAB PO PRN (20:55)
[2016-06-19] VITALS (13 sets, daily range): BP systolic 115–159; BP diastolic 57–84; PULSE 69–80; TEMP 36.5–37.7; O2SAT 95–99
[2016-06-19] MEDS: TUBE FEEDING WATER FLUSH PEG SCH ×6 (00:20→19:58)
[2016-06-19] MEDS: ALBUTEROL HFA 8 GM INHALER INH SCH ×4 (01:58→19:55)
[2016-06-19] MEDS: IPRATROPIUM BROMIDE HFA INHALER INH SCH ×4 (01:58→19:55)
[2016-06-19] MEDS: SODIUM CHLORIDE 0.9% IV SCH (03:57)
[2016-06-19] MEDS: TIGECYCLINE IV SCH (03:57)
[2016-06-19] MEDS: BISACODYL 10 MG SUPP PR SCH (05:30)
[2016-06-19 05:38] LABS: BASO % 0.2 %; BASO ABS # 0.02 K/uL (0-0.2); COMPLETE YES; EOS % 0.6 %; HEMATOCRIT 31.5 % (37-47); IG% 0.8 %; LYMPH % 17.1 %; LYMPH ABS # 1.65 K/uL (1.2-3.4); MEAN CELL VOLUME 94.6 fL (80-100); MEAN CORPUSCULAR HEMOGLOBIN 28.8 pg (25-34); MEAN CORPUSCULAR HGB CONC 30.5 g/dl (32-36); MEAN PLATELET VOLUME 10.9 fL (7.4-10.4); MONO % 6.9 %; NEUT % 74.4 %; PLATELET COUNT 291 K/uL (130-400); RED BLOOD COUNT 3.33 M/uL (4.2-5.4); WHITE BLOOD COUNT 9.66 K/uL (4.8-10.8)
[2016-06-19 06:12] LABS: BUN/CREATININE RATIO 58.9 (10-20); CREATININE 0.77 mg/dl (0.60-1.20); PHOSPHORUS 3.9 mg/dl (2.5-4.9); POTASSIUM 3.6 mmol/L (3.5-5.1)
[2016-06-19] MEDS: NOVASOURCE RENAL 1000ML BAG PEG SCH ×3 (07:05→18:39)
[2016-06-19 08:00] LABS: ISTAT ALLEN TEST Pass; ISTAT ARTERIAL BLOOD GAS HCO3 29 meq/L (19-24); ISTAT ARTERIAL BLOOD GAS PCO2 37 mmHg (35-46); ISTAT ARTERIAL BLOOD GAS PO2 73 mmHg (80-95); ISTAT CARBON DIOXIDE 30 mEq/l (24-31); ISTAT DELIVERY SYSTEM Ventilator; ISTAT FIO2 30 %; ISTAT RATE 14; ISTAT SITE L Radial; VE 9.1; Vt 500
[2016-06-19] MEDS: INSULIN HUMAN REGULAR SC SCH ×5 (08:00→18:42)
[2016-06-19] MEDS: CALCIUM 600MG + VIT D 400 IU TAB PO SCH ×2 (09:01→21:51)
[2016-06-19] MEDS: LANSOPRAZOLE SOLUTAB 30 MG NG SCH ×2 (09:01→21:48)
[2016-06-19] MEDS: THIAMINE HCL 100 MG TAB PO SCH (09:01)
[2016-06-19] MEDS: DOCUSATE SODIUM 100 MG/10 ML UDC NG SCH ×2 (09:01→21:47)
[2016-06-19] MEDS: ASCORBIC ACID 500 MG TAB PO SCH ×2 (09:01→21:53)
[2016-06-19] MEDS: ALLOPURINOL 100 MG TAB PO SCH (09:01)
[2016-06-19] MEDS: CHOLECALCIFEROL 1000 INTER.UNIT TAB PO SCH ×2 (09:01→21:50)
[2016-06-19] MEDS: CLOPIDOGREL BISULFATE 75 MG TAB PO SCH (09:01)
[2016-06-19] MEDS: ESCITALOPRAM OXALATE 20 MG TAB PO SCH (09:01)
[2016-06-19] MEDS: GABAPENTIN 250 MG/5 ML 470 ML BTL NG SCH ×3 (09:01→21:46)
[2016-06-19] MEDS: DIPYRIDAMOLE/ASPIRIN CAP PO SCH ×2 (09:01→21:49)
[2016-06-19] MEDS: AMLODIPINE BESYLATE 5 MG TAB PO SCH (09:02)
[2016-06-19] MEDS: PENTOSAN POLYSULFATE SODIUM 100 MG PO SCH ×2 (09:02→21:52)
[2016-06-19] MEDS: LIFITEGRAST 5% OP SCH ×2 (09:03→21:57)
[2016-06-19] MEDS: SODIUM CHLORIDE 0.65% NA SOLN 45 ML (OCEAN) SCH ×4 (09:03→21:46)
[2016-06-19] MEDS: ASPIRIN 81 MG CHEW NG SCH (09:05)
[2016-06-19] MEDS ORDERED: NURSING VERBAL MED ORDER ONE (09:45)
--- NOTE | 2016-06-19 11:04 | Infectious Disease Progress Nt ---
Progress Note Date of Service Jun 19, 2016. Subjective Pt evaluation today including: conversation w/ patient, physical exam, chart review, lab review, review of studies, conversation w/ economic consultant, review of inpatient medication list WBC count this morning 9.66. Creatinine stable at 0.77. Noted that denise patient did have fever up to 39.3 C over night. Discussed with Dr. Mckeon. The patient is very lethargic today and does not respond to questions. All Other Systems: Reviewed and Negative Medications Current Inpatient Medications Medications (Trade) Dose Ordered Sig/Tasha Route Start Time Stop Time Status Last Admin Dose Admin Levalbuterol (Xopenex 1.25MG/ 3ML Neb) 1.25 mg Q4H PRN INH 05/28/16 23:00 06/27/16 22:59 Allopurinol (Zyloprim Tab) 100 mg DAILY PO 05/29/16 09:00 06/28/16 08:59 06/19/16 09:01 100 MG Ascorbic Acid (Vitamin C Tab) 500 mg BID PO 05/29/16 09:00 06/28/16 08:59 06/19/16 09:01 500 MG Dipyridamole/ Aspirin (Aggrenox 200MG/ 25MG Cap) 1 cap BID PO 05/29/16 09:00 06/28/16 08:59 06/19/16 09:01 1 CAP Calcium/Vitamin D (Caltrate Plus Tab) 1 tab BID PO 05/29/16 09:00 06/28/16 08:59 06/19/16 09:01 1 TAB Cholecalciferol (Vitamin D Tab) 1,000 inter.unit BID PO 05/29/16 09:00 06/28/16 08:59 06/19/16 09:01 1,000 INTER.UNIT Clopidogrel Bisulfate (plAVix TAB) 75 mg DAILY PO 05/29/16 09:00 06/28/16 08:59 06/19/16 09:01 75 MG Escitalopram Oxalate (Lexapro Tab) 20 mg QAM PO 05/29/16 09:00 06/28/16 08:59 06/19/16 09:01 20 MG Magnesium Chloride (Slow-Mag Tab) 64 mg BID PO 05/29/16 09:00 06/28/16 08:59 Future Hold 06/06/16 21:31 64 MG Phenazopyridine HCl (Pyridium Tab) 200 mg DAILY PRN PO 05/28/16 23:00 06/27/16 22:59 06/14/16 20:35 200 MG Artificial Tears (Artificial Tears) 2 drops BID PRN OPB 05/29/16 04:45 06/28/16 04:44 06/10/16 07:57 2 DROPS Solifenacin (Vesicare) 10 mg HS PO 05/29/16 21:00 06/28/16 20:59 06/18/16 20:43 10 MG Thiamine HCl (Vitamin B-1 Tab) 100 mg DAILY PO 05/29/16 09:00 06/28/16 08:59 06/19/16 09:01 100 MG Artificial Tears (Lacri-Lube Oph Oint) 1 appln HS OPB 05/29/16 21:00 06/28/16 20:59 06/18/16 20:39 1 APPLN Bisacodyl (Dulcolax Supp) 10 mg TuTh@0530 PA 05/29/16 06:15 06/28/16 06:14 05/31/16 05:30 10 MG Bisacodyl (Dulcolax Supp) 10 mg SuMoWeFrSa@2330 PA 05/30/16 23:30 06/29/16 23:29 06/15/16 23:41 10 MG Polyethylene (Miralax Powder Packet) 17 gm QPM PO 05/29/16 21:00 06/28/16 20:59 06/16/16 20:34 17 GM Sodium Chloride ([place] Nasal [place]) 2 sprays QID NA 05/30/16 21:00 06/29/16 20:59 06/19/16 09:03 2 SPRAYS Multi-Ingredient Ointment (Eucerin Unscented Cr) 0.25 appln BID PRN EXT 05/30/16 22:00 06/29/16 21:59 06/10/16 08:21 0.25 APPLN Lifitegrast (Xiidra 5% Oph Soln) 1 drop BID OP 06/06/16 21:00 07/06/16 20:59 06/19/16 09:03 1 DROP Lansoprazole (Prevacid Solutab) 30 mg BID NG 06/08/16 21:00 07/08/16 20:59 06/19/16 09:01 30 MG Aspirin (Aspirin Chew) 81 mg DAILY NG 06/09/16 09:00 07/09/16 08:59 06/19/16 09:05 81 MG Docusate Sodium (coLACE SYRUP) 100 mg BID NG 06/08/16 21:00 07/08/16 20:59 06/19/16 09:01 100 MG Acetaminophen (Tylenol Soln) 650 mg Q4H PRN PO 06/09/16 09:45 07/09/16 09:44 06/18/16 15:29 650 MG Gabapentin (Neurontin) 100 mg QAM NG 06/10/16 09:00 07/09/16 08:59 06/19/16 09:01 100 MG Gabapentin (Neurontin) 200 mg DAILY@1600 NG 06/09/16 16:00 07/08/16 15:59 06/18/16 15:30 200 MG Gabapentin 600 mg 600 mg HS NG 06/09/16 21:00 07/08/16 20:59 06/18/16 20:47 600 MG Tigecycline/ Sodium Chloride (Tygacil Inj/Nss 100ml) 105 ml @ 200 mls/hr Q12@0400,1600 IV 06/11/16 04:00 06/24/16 05:00 06/19/16 03:57 200 MLS/HR Miscellaneous Information (Consult Glycemic Management Pharmacy) 1 ea UD N/A 06/11/16 09:42 07/11/16 09:41 Simethicone (Mylicon Chew Tab) 80 mg Q6H PRN PO 06/11/16 23:00 07/11/16 22:59 06/11/16 23:51 80 MG Morphine Sulfate (MoRPHine SULFATE INJ) 2 mg Q30M PRN IV 06/13/16 14:45 06/27/16 14:44 Heparin Sodium (Porcine) (Heparin 100 Unit/ml 5ml Flush) 5 ml PRN PRN IV 06/14/16 17:00 07/14/16 16:59 06/14/16 19:17 5 ML Pentosan Polysulfate Sodium (Elmiron) 100 mg BID PO 06/14/16 21:00 07/14/16 20:59 06/19/16 09:02 100 MG Enteral Nutritional Formula (Prosource No Carb) 30 ml DAILY@1200 PEG 06/15/16 12:00 07/15/16 11:59 06/18/16 13:22 30 ML Magnesium Oxide (Mag-Ox Tab) 400 mg HS PRN PO 06/15/16 18:00 07/15/16 17:59 06/17/16 15:38 400 MG Sterile Water (Tube Feeding Water Flush) 1 ea Q4H PEG 06/16/16 10:00 07/16/16 09:59 06/19/16 09:03 1 EA Hydrochlorothiazide (Hydrochlorothiazide Tab) 50 mg QAM PO 06/18/16 09:00 07/18/16 08:59 Future Hold Ipratropium [place] (Atrovent Hfa Inhaler) 4 puffs Q6 INH 06/17/16 15:00 07/17/16 14:59 06/19/16 07:30 4 PUFFS Albuterol (Ventolin Hfa Inhaler) 4 puffs Q6 INH 06/17/16 15:00 07/17/16 14:59 06/19/16 07:30 4 PUFFS Amlodipine Besylate (Norvasc Tab) 5 mg DAILY PO 06/18/16 09:00 07/18/16 08:59 06/19/16 09:02 5 MG Enteral Nutritional Formula 300 ml 300 ml TID@0600,1200,1800 PEG 06/18/16 12:00 07/18/16 11:59 06/19/16 07:05 300 ML Amphotericin B/ Sterile Water (Fungizone Irrigation Inj/ Sterile Water 1000 ml) 1,000 ml @ 41.667 mls/ hr DAILY@1200 IR 06/18/16 12:45 06/23/16 12:44 06/18/16 14:28 41.667 MLS/HR Insulin Human Regular (novoLIN-R) SLIDING SCALE TID@0600,1200,1800 SC 06/18/16 12:00 07/18/16 11:59 06/19/16 08:00 11 UNITS Insulin Human Regular (novoLIN-R) SLIDING SCALE DAILY@0000 SC 06/19/16 00:00 07/19/16 00:00 Lorazepam (Ativan Tab) 0.5 mg Q8H PRN PO 06/18/16 17:45 07/18/16 17:44 06/18/16 20:55 0.5 MG Buspirone HCl (Buspar Tab) 10 mg BID PO 06/18/16 21:00 07/18/16 20:59 06/19/16 09:01 10 MG Objective Vital Signs Date Time Temp Pulse Resp B/P Pulse Ox O2 Delivery O2 Flow Rate FiO2 06/19/16 10:08 76 20 156/66 99 Mechanical Ventilator 3.0 06/19/16 08:00 37.1 80 18 138/64 97 Mechanical Ventilator 3.0 06/19/16 08:00 Mechanical Ventilator 3.0 06/19/16 06:00 77 22 115/84 98 Mechanical Ventilator 3.0 06/19/16 04:00 36.9 80 20 159/65 98 Mechanical Ventilator 3.0 06/19/16 04:00 Mechanical Ventilator 3.0 06/19/16 02:00 37.2 77 20 144/70 99 Mechanical Ventilator 3.0 06/19/16 00:01 37.7 75 17 137/74 98 Mechanical Ventilator 3.0 06/18/16 23:59 Mechanical Ventilator 3.0 06/18/16 22:03 37.7 06/18/16 22:00 37.7 79 18 149/66 98 Mechanical Ventilator 4.0 06/18/16 20:00 39.2 85 20 149/80 98 Mechanical Ventilator 3.0 06/18/16 20:00 Mechanical Ventilator 3.0 06/18/16 18:02 39.3 93 26 138/79 96 Mechanical Ventilator 3.0 06/18/16 16:00 94 24 129/78 96 Mechanical Ventilator 3.0 06/18/16 16:00 Mechanical Ventilator 3.0 06/18/16 14:33 38.6 88 26 156/70 97 Mechanical Ventilator 3.0 06/18/16 12:00 84 26 140/80 97 Mechanical Ventilator 3.0 06/18/16 12:00 Mechanical Ventilator 4.0 Physical Exam General Appearance: + pertinent finding (asleep, lethargic) Eyes: sclerae normal Neck: supple, + pertinent finding (tracheostomy) Respiratory/Chest: + pertinent finding (ventilated. Decrease in coarse breath sounds- improved lung sounds) Cardiovascular: regular rate, rhythm Abdomen: normal bowel sounds, soft Extremities: + swelling (trace pitting edema B/L Le) Neurologic/Psychiatric: + pertinent finding (lethargic, asleep) Skin: normal color, warm/dry Laboratory Results Last 24 Hours Test 06/18/16 13:28 06/18/16 18:31 06/18/16 20:00 06/19/16 00:11 Bedside Glucose 215 mg/dl 234 mg/dl 99 mg/dl Lactic Acid Level 1.7 mmol/L Test 06/19/16 05:11 06/19/16 05:19 06/19/16 07:44 06/19/16 10:28 White Blood Count 9.66 K/uL Red Blood Count 3.33 M/uL Hemoglobin 9.6 g/dL Hematocrit 31.5 % Mean Corpuscular Volume 94.6 fL Mean Corpuscular Hemoglobin 28.8 pg Mean Corpuscular Hemoglobin Concent 30.5 g/dl Platelet Count 291 K/uL Mean Platelet Volume 10.9 fL Neutrophils (%) (Auto) 74.4 % Lymphocytes (%) (Auto) 17.1 % Monocytes (%) (Auto) 6.9 % Eosinophils (%) (Auto) 0.6 % Basophils (%) (Auto) 0.2 % Neutrophils # (Auto) 7.18 K/uL Lymphocytes # (Auto) 1.65 K/uL Monocytes # (Auto) 0.67 K/uL Eosinophils # (Auto) 0.06 K/uL Basophils # (Auto) 0.02 K/uL RDW Standard Deviation 61.3 fL RDW Coefficient of Variation 17.8 % Immature Granulocyte % (Auto) 0.8 % Immature Granulocyte # (Auto) 0.08 K/uL Sodium Level 151 mmol/L Potassium Level 3.6 mmol/L Chloride Level 112 mmol/L Carbon Dioxide Level 30 mmol/L Anion Gap 9.0 mmol/L Blood Urea Nitrogen 45 mg/dl Creatinine 0.77 mg/dl Est Creatinine Clear Calc Drug Dose 60.0 ml/min Estimated GFR () 91.3 Estimated GFR (Non- 78.8 BUN/Creatinine Ratio 58.9 Random Glucose 151 mg/dl Calcium Level 9.0 mg/dl Phosphorus Level 3.9 mg/dl Magnesium Level 2.0 mg/dl Bedside Glucose 126 mg/dl Blood Gas Sample Site L Radial Bedside Blood Gas pH (LAB) 7.50 Bedside Blood Gas pCO2 (LAB) 37 mmHg Bedside Blood Gas pO2 (LAB) 73 mmHg Bedside Blood Gas HCO3 (LAB) 29 meq/L Bedside Blood Gas Total CO2 30 mEq/l Bedside Blood Gas Base Excess (LAB) 6.0 meq/L Bedside Blood Gas O2 Saturation 96.0 % Yogesh Test Pass Oxygen Delivery Device Ventilator Bedside Oxygen Rate (breaths/min) 14 Blood Gas Minute Ventilation 9.1 Bedside FiO2 30 % Blood Gas Tidal Volume 500 Assessment and Plan (1) Quadriplegia Status: Chronic Onset: 10/23/2010 Patient with history of recurrent UTI's and pneumonia with respiratory failure. Now with repeat urine culture growing Non-Merari Albicans yeast. 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 Started Amphotericin bladder irrigation x 5 days. She continues to have fever. Discussed concern for pyelonephritis with yeast in urine- recommended CT of abdomen/pelvis today. She has completed 9 days of Tigecycline. Another concern would be drug fever. Her lung sounds have improved, and therefore feel that we can discontinue this medication pending further workup. We will follow. Case reviewed and agree with above assessment, ampho bladder irrigation started , ? non infectious sources as well. will follow.
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
--- NOTE | 2016-06-19 13:17 | Pharmacy Progress Note ---
Glycemic Control: Progress Nt Date of Service Jun 19, 2016. Scope Glycemic Pharmacist consulted for glycemic control and to write orders per [facility] inpatient glycemic control protocol. Objective Accuchecks BSG (last 24hrs): Test 06/18/16 13:28 06/18/16 18:31 06/19/16 00:11 06/19/16 05:11 Bedside Glucose 215 mg/dl (70-90) 234 mg/dl (70-90) 99 mg/dl (70-90) Random Glucose 151 mg/dl (70-99) Test 06/19/16 05:19 Bedside Glucose 126 mg/dl (70-90) Laboratory Data (last 24hrs) Test 06/19/16 05:11 Anion Gap 9.0 mmol/L BUN/Creatinine Ratio 58.9 Blood Urea Nitrogen 45 mg/dl Creatinine 0.77 mg/dl Potassium Level 3.6 mmol/L Sodium Level 151 mmol/L White Blood Count 9.66 K/uL Red Blood Count 3.33 M/uL Hemoglobin 9.6 g/dL Hematocrit 31.5 % Mean Corpuscular Volume 94.6 fL Mean Corpuscular Hemoglobin 28.8 pg Mean Corpuscular Hemoglobin Concent 30.5 g/dl Platelet Count 291 K/uL Mean Platelet Volume 10.9 fL Neutrophils (%) (Auto) 74.4 % Lymphocytes (%) (Auto) 17.1 % Monocytes (%) (Auto) 6.9 % Eosinophils (%) (Auto) 0.6 % Basophils (%) (Auto) 0.2 % Neutrophils # (Auto) 7.18 K/uL Lymphocytes # (Auto) 1.65 K/uL Monocytes # (Auto) 0.67 K/uL Eosinophils # (Auto) 0.06 K/uL Basophils # (Auto) 0.02 K/uL HbA1c: Test 05/29/16 06:45 Hemoglobin A1c 6.0 % (4.5-5.6) H Recent Pertinent Medications Outpatient Anti-diabetic Regimen: * Novolog SSI * A1c = 6.0 % 05/29/16 The patient is currently receiving: * Basal insulin: Lantus 5 units x1 06/18 * Correctional Insulin: Novolog Correction per scale q6h Goal Range: 120-160 mg/dL (140-180 mg/dL at 0000 check ) Correction Factor: 15 mg/dL/unit * Prandial insulin: Per carb ratio of 1 unit per 5 grams CHO consumed Risk Factors for Insulin Resistance: * Infection: Aspiration pnx secondary to Acinetobacter baumannii and ? fungal UTI - on Tigecycline and amphotericin bladder irrigation * Diet: Novasource Renal boluses @ 300 mL TID (delivers 55 gm CHO per bolus) + Prosource Nocarb daily * Mechanical Ventilation: Yes (home regimen) Assessment & Plan ASSESSMENT: * ADA & AACE recommend a goal blood sugar range 140-180 mg/dl for the majority of critically ill & non-critically ill patients. However, more stringent targets may be selected in individual cases. 06/17/16 * BSG control has improved secondary to tightening of Regular insulin parameters yesterday. Improved coverage of continuous tubefeeds. * Since change in Novolog parameters: BSG = 226 --> 170 --> 183 * No changes warranted presently. * Continue to hold basal insulin. 06/18/16 * BSG's ranging 202-208 mg/dL over 24 hours. * Amphotericin bladder irrigation started today * AM fasting BSG persistently elevated - will give one-time dose of Lantus at low dose. * Patient remains in ICU - physiological stressors likely more than previous admissions when she did not require basal insulin and her total daily insulin dose was significantly reduced compared to current requirements * Novasource maintained at 300 mL TID, but adjusted times to 0600,1200,1800 to help prevent insulin stacking * Will add overnight check at 0000 with higher goal range to prevent hypoglycemia 06/20/15 * BSG trended down to 99 mg/dL yesterday at 0000 2nd insulin being administered at 1800 but then having tubefeeds held due to high residual volume (per ICU rounds). This does not require a change in therapy. * BSG trended up from 99 to 126 mg/dL overnight without any CHO or insulin administered. Will decrease Lantus dose slightly as 126 mg/dL is slightly low for ICU goal and patient is at risk for hypoglycemia. * Will increase goal range to prevent hypoglycemia while on Lantus (patient has not required in past admissions) PLAN FOR INPATIENT GLYCEMIC CONTROL: * Decrease Basal insulin with LANTUS 4 units SQ x1 now then QAM thereafter ( hold for BSG < 140 mg/dL *or* if tubefeeds held) * Correctional Insulin with REGULAR Q6hrs (TID@06,12,18 and Daily@00 order) * Increase Goal Range: 140-180 mg/dL * Correction Factor: 15 mg/dL/unit * Nutritional / Prandial insulin per carb ratio of 1 unit per 5 grams CHO consumed * Please note that the plan above was derived based on current level of insulin resistance and hospital stress. These recommendations are appropriate for inpatient admission only. Plan of care upon discharge will need to be reassessed to avoid potential outpatient hypo/hyperglycemia. Thank you.
--- NOTE | 2016-06-19 13:42 | DIAGNOSTIC IMAGING REPORT ---
CT SCAN OF THE ABDOMEN AND PELVIS WITHOUT IV CONTRAST CLINICAL HISTORY: Generalized abdominal pain. Abdominal distention and fever. COMPARISON STUDY: Abdominal CT dated 01/12/2014. TECHNIQUE: CT scan of the abdomen and pelvis is performed from the lung bases to the proximal femora. Images are reviewed in the axial, sagittal, and coronal planes. IV contrast was not administered for this examination as per the referring clinician. Note that the examination was performed in significantly suboptimal fashion without oral and IV contrast. The examination is also significantly degraded by streak artifact from the patient's arms which could not be elevated above the abdomen, as well as by streak artifact from a neurostimulator device in the right lower quadrant.. Automated dose control exposure was utilized. CT DOSE: 895.23 mGy.cm FINDINGS: Lung bases: The heart is top normal in size and without pericardial effusion. The coronary arteries are densely calcified. There is diminished attenuation of the cardiac blood pool as compared to the myocardium suggesting anemia. There are small pleural effusions. Dense bibasilar airspace consolidation/fibrosis is similar the 2014 examination. Patchy airspace consolidation is seen throughout the imaged lung bases.. Liver: Evaluation of the liver is degraded by streak artifact. The unenhanced liver is enlarged, measuring 23 cm in length. The liver demonstrates diminished attenuation suggesting hepatic steatosis. There is no intrahepatic biliary ductal dilatation. Gallbladder: Contracted. Spleen: Normal in size and attenuation. Pancreas: The unenhanced pancreas is moderately atrophic and grossly unremarkable. Adrenal glands: Unremarkable. Kidneys: The unenhanced kidneys are atrophic. There is minimal right-sided hydronephrosis. An extrarenal renal pelvis is seen on the right and there is also ectasia of the right ureter. There are no renal calculi identified. There is no evidence of contour deforming renal mass lesion. Abdominal vasculature: The abdominal aorta is normal in course and caliber noting advanced atherosclerotic calcification. Bowel: A gastrostomy tube is present in the stomach. The small bowel and colon are normal in course and caliber. Mild wall thickening and edema is noted in the right colon. The appendix is not clearly visualized. Peritoneum: There is a small volume of perihepatic and pelvic ascites. No intraperitoneal free air is seen. There are findings of retroperitoneal lipomatosis. Lymphadenopathy: None. Pelvic viscera: The bladder is decompressed around Staples catheter. Foci of intraluminal gas are likely related to instrumentation. The uterus and adnexa are normal as visualized. Skeletal structures: The skeletal structures are osteopenic. No lytic or blastic lesions are seen. There are compression deformities of T8, T9, T11, L1, L2, L3, L4, and L5. Soft tissues: There is body wall edema. A neurostimulator device is present in the right lower quadrant. Leads enter the thecal space in the upper lumbar region. IMPRESSION: 1. Significantly suboptimal examination without oral and IV contrast. The examination is also significantly degraded by streak artifact. 2. There is patchy airspace consolidation seen throughout the imaged lower lobes. Small pleural effusions are identified. This could represent multifocal pneumonia or possibly a component of interstitial edema. Clinical correlation will be required. 3. Dense bibasilar consolidation, left greater than right is similar to 2014 and likely represents atelectasis/fibrosis. Again, clinical correlation will be required. 4. There is wall thickening identified within the right colon. This could represent a mild nonspecific colitis/typhlitis. Clinical correlation will be required. 5. Hepatomegaly and hepatic steatosis. 6. There is a small volume of abdominopelvic ascites. 7. The bladder is decompressed around a Staples catheter. Foci of intraluminal gas are likely related to instrumentation. Correlation with urinalysis will be required. 8. There is minimal right-sided hydronephrosis as well as ectasia of the right ureter. This is dilated to the level of the bladder and of indeterminant significance. 9. Retroperitoneal lipomatosis is again noted. 10. Additional changes as above. Electronically signed by: Melvin Dominguez M.D. 06/19/2016 1:41 PM Dictated Date/Time: 06/19/2016 1:29 PM
[2016-06-19] MEDS: PROSOURCE NOCARB 30ML/PKT PEG SCH (13:43)
[2016-06-19] MEDS: AMPHOTERICIN B IRRIGATION INJ 50 MG in STERILE WATER 1000 ML 1,000 ML IR SCH (13:43)
[2016-06-19] MEDS ORDERED: INSULIN GLARGINE SOLOSTAR 100 UNITS/ML 3 ML PEN SC ONE (14:30)
--- NOTE | 2016-06-19 16:25 | Progress Note ---
Progress Note Date of Service Jun 19, 2016. Progress Note Immigration Lawyer: CT abdomen and pelvis reviewed... Patchy bibasilar pulmonary consolidation, minimal R hydro, ectasia of R ureter dilated to the level of the bladder, R colon wall thickening, hepatomegaly, hepatic steatosis, small volume ascites. Unclear significance of R colon and R ureteral abnormalities. I will ask radiology to compare with previous CT abdomen. I discussed the patient's care with her daughter at the bedside at length. She is understandably concerned about her fever and her recent development of what looks like tardive dyskinesia. Could consider neuro consult but it seems to be better today. She has been stable on her home ventilator for several days and I believe she can be transferred to step down. Addendum: I curbsided the radiologist to compare the R kidney and ureter with a scan from 2009 and he believes what is present on today's study is progressive from 2010. Please call me with any questions or concerns.
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
[2016-06-19] MEDS: SOLIFENACIN 10 MG TAB PO SCH (21:52)
[2016-06-19] MEDS: ARTIFICIAL TEARS OP OINT 3.5 GM TUBE OPB SCH (21:57)
[2016-06-19] MEDS: POLYETHYLENE (MIRALAX) 17 GM PACK PO SCH (21:58)
[2016-06-20] VITALS (11 sets, daily range): BP systolic 140–171; BP diastolic 56–86; PULSE 63–74; TEMP 36.4–36.9; O2SAT 91–98
[2016-06-20] MEDS: TUBE FEEDING WATER FLUSH PEG SCH ×7 (00:07→23:36)
[2016-06-20] MEDS: INSULIN HUMAN REGULAR SC SCH ×4 (00:07→18:00)
[2016-06-20] MEDS: ALBUTEROL HFA 8 GM INHALER INH SCH ×4 (01:50→18:00)
[2016-06-20] MEDS: IPRATROPIUM BROMIDE HFA INHALER INH SCH ×4 (01:50→18:00)
[2016-06-20 06:04] LABS: BASO % 0.2 %; BASO ABS # 0.02 K/uL (0-0.2); COMPLETE YES; HEMATOCRIT 31.1 % (37-47); LYMPH % 11.5 %; LYMPH ABS # 1.07 K/uL (1.2-3.4); MEAN CELL VOLUME 92.6 fL (80-100); MEAN CORPUSCULAR HEMOGLOBIN 28.6 pg (25-34); MEAN CORPUSCULAR HGB CONC 30.9 g/dl (32-36); MEAN PLATELET VOLUME 10.5 fL (7.4-10.4); MONO % 5.7 %; NEUT % 80.6 %; PLATELET COUNT 229 K/uL (130-400); RED BLOOD COUNT 3.36 M/uL (4.2-5.4); WHITE BLOOD COUNT 9.32 K/uL (4.8-10.8)
[2016-06-20] MEDS: NOVASOURCE RENAL 1000ML BAG PEG SCH ×3 (06:14→18:20)
[2016-06-20 06:36] LABS: BUN/CREATININE RATIO 65.5 (10-20); CALCIUM 8.7 mg/dl (8.5-10.1); CREATININE 0.53 mg/dl (0.60-1.20); POTASSIUM 3.1 mmol/L (3.5-5.1)
[2016-06-20] MEDS: LIFITEGRAST 5% OP SCH ×2 (09:00→21:04)
[2016-06-20] MEDS: POTASSIUM CHLORIDE PWD 20 MEQ PACK GT SCH ×2 (09:00→21:03)
[2016-06-20] MEDS: ASPIRIN 81 MG CHEW NG SCH (09:00)
[2016-06-20] MEDS: GABAPENTIN 250 MG/5 ML 470 ML BTL NG SCH ×3 (09:00→21:02)
[2016-06-20] MEDS: DOCUSATE SODIUM 100 MG/10 ML UDC NG SCH ×2 (09:00→21:00)
[2016-06-20] MEDS: DIPYRIDAMOLE/ASPIRIN CAP PO SCH ×2 (09:13→21:04)
[2016-06-20] MEDS: AMLODIPINE BESYLATE 5 MG TAB PO SCH (09:13)
[2016-06-20] MEDS: ALLOPURINOL 100 MG TAB PO SCH (09:13)
[2016-06-20] MEDS: CLOPIDOGREL BISULFATE 75 MG TAB PO SCH (09:14)
[2016-06-20] MEDS: LANSOPRAZOLE SOLUTAB 30 MG NG SCH ×2 (09:14→21:03)
[2016-06-20] MEDS: PHENAZOPYRIDINE HCL 200 MG TAB PO PRN (09:14)
[2016-06-20] MEDS: CHOLECALCIFEROL 1000 INTER.UNIT TAB PO SCH ×2 (09:15→21:03)
[2016-06-20] MEDS: ASCORBIC ACID 500 MG TAB PO SCH ×2 (09:15→21:03)
[2016-06-20] MEDS: ESCITALOPRAM OXALATE 20 MG TAB PO SCH (09:15)
[2016-06-20] MEDS: SODIUM CHLORIDE 0.65% NA SOLN 45 ML (OCEAN) SCH ×4 (09:15→21:04)
[2016-06-20] MEDS: CALCIUM 600MG + VIT D 400 IU TAB PO SCH ×2 (09:15→21:03)
[2016-06-20] MEDS: THIAMINE HCL 100 MG TAB PO SCH (09:15)
[2016-06-20] MEDS: PENTOSAN POLYSULFATE SODIUM 100 MG PO SCH ×2 (09:16→21:05)
[2016-06-20] MEDS: LORAZEPAM 0.5 MG TAB PO PRN (09:19)
[2016-06-20] MEDS: INSULIN GLARGINE SOLOSTAR 100 UNITS/ML 3 ML PEN SC SCH (09:22)
[2016-06-20] MEDS ORDERED: DIPHENOXYLATE/ATROPINE 2.5MG/0.025MG/5ML GT PRN (09:30)
--- NOTE | 2016-06-20 09:43 | PULMONARY PROGRESS NOTE ---
DATE: 06/20/2016 DATE: 06/20/2016. TIME: 9:15 a.m. SUBJECTIVE: The patient was now moved out of the first floor ICU. She is very restless. She is maintained on the home ventilator. She is not on PEEP. Apparently that ventilator could not be fixed with PEEP. She had been having a significant amount of twitching and nonpurposeful movements, particularly of the face. That has significantly improved. Perhaps it was a drug effect. Her fevers are better for the past 24 hours. Current temperature 36.8. Last fever was more than 24 hours ago when she had a temperature of 37.7 in the early childhood education instructor hours of yesterday. Two days ago her temperatures peaked at 39.3. OBJECTIVE: HEAD, EYES, EARS, NOSE, AND THROAT: Pupils were reactive. Tracheostomy is in place. HEART: Rate is 75 per minute. The rhythm is regular. LUNGS: Auscultation of the lung torres reveals rales posteriorly and laterally greater on the left than the right. VITAL SIGNS: Blood pressure 152/56. Oxygen saturation 94% on the ventilator. CHEST: Respiratory rate currently was 15 breaths per minute. ABDOMEN: Has a PEG tube in place. Bowel sounds were present. The abdomen only seems a bit distended. EXTREMITIES: Showed no cyanosis, clubbing or edema. She does not move due to her quadriplegia. LABORATORY DATA: White count today was 9.32, hemoglobin 9.6, platelets 229,000. Blood gas done yesterday showed a pH of 7.50 with a pCO2 of 37 and a pO2 of 73. This was done on the ventilator. Electrolytes today show sodium 149, potassium 3.1, chloride 110, bicarbonate 31. The BUN is 35 with a creatinine of 0.53. The BUN has improved. One day earlier the BUN was 45. The creatinine is also improved. Today it was 0.53 and yesterday 0.77. I did review the patient's most recent CAT scan of the abdomen and pelvis, but with attention to the lower chest. Significant infiltrates were seen that in my opinion do not look characteristic for respiration. IMPRESSIONS: 1. Acute on chronic respiratory failure with hypoxia. 2. Bilateral pneumonia. 3. Quadriplegia. 4. Ventilator dependent. COMMENTS AND RECOMMENDATIONS: The patient seems to be generally improved. She is tolerating the ventilator without PEEP. Blood gases yesterday were good. Her fevers are seemingly improved. I will check a chest x-ray tomorrow morning. She is getting potassium. It appears she needs more potassium based upon today's result. We will defer this to the hospitalist team.
[2016-06-20] MEDS: POTASSIUM CHLR 10 MEQ / WTR 10 MEQ in PREMIXED WATER 100 ML IV SCH ×3 (09:54→11:13)
[2016-06-20] MEDS: PROSOURCE NOCARB 30ML/PKT PEG SCH (12:00)
[2016-06-20] MEDS: AMPHOTERICIN B IRRIGATION INJ 50 MG in STERILE WATER 1000 ML 1,000 ML IR SCH (13:01)
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
--- NOTE | 2016-06-20 16:02 | Infectious Disease Progress Nt ---
Progress Note Date of Service Jun 20, 2016. Subjective Pt evaluation today including: conversation w/ patient, physical exam, chart review, lab review, review of studies, review of inpatient medication list Patient has been afebrile today. She continues amphotericin bladder irrigation. Tigecycline was D/C'd. She is sleeping during my exam but her caregiver states that she was agitated in the morning. CT of the abdomen showed airspace consolidation of the lower lobes of the lung, thickening of the right colon possibly consistent with nonspecific colitis, decompressed bladder around [place] , and minimal right-sided hydronephrosis and ectasia of the right ureter. WBC count today was 9.32. Creatinine was 0.53. All Other Systems: Reviewed and Negative Medications Current Inpatient Medications Medications (Trade) Dose Ordered Sig/Tasha Route Start Time Stop Time Status Last Admin Dose Admin Levalbuterol (Xopenex 1.25MG/ 3ML Neb) 1.25 mg Q4H PRN INH 05/28/16 23:00 06/27/16 22:59 Allopurinol (Zyloprim Tab) 100 mg DAILY PO 05/29/16 09:00 06/28/16 08:59 06/20/16 09:13 100 MG Ascorbic Acid (Vitamin C Tab) 500 mg BID PO 05/29/16 09:00 06/28/16 08:59 06/20/16 09:15 500 MG Dipyridamole/ Aspirin (Aggrenox 200MG/ 25MG Cap) 1 cap BID PO 05/29/16 09:00 06/28/16 08:59 06/20/16 09:13 1 CAP Calcium/Vitamin D (Caltrate Plus Tab) 1 tab BID PO 05/29/16 09:00 06/28/16 08:59 06/20/16 09:15 1 TAB Cholecalciferol (Vitamin D Tab) 1,000 inter.unit BID PO 05/29/16 09:00 06/28/16 08:59 06/20/16 09:15 1,000 INTER.UNIT Clopidogrel Bisulfate (plAVix TAB) 75 mg DAILY PO 05/29/16 09:00 06/28/16 08:59 06/20/16 09:14 75 MG Escitalopram Oxalate (Lexapro Tab) 20 mg QAM PO 05/29/16 09:00 06/28/16 08:59 06/20/16 09:15 20 MG Magnesium Chloride (Slow-Mag Tab) 64 mg BID PO 05/29/16 09:00 06/28/16 08:59 Future Hold 06/06/16 21:31 64 MG Phenazopyridine HCl (Pyridium Tab) 200 mg DAILY PRN PO 05/28/16 23:00 06/27/16 22:59 06/14/16 20:35 200 MG Artificial Tears (Artificial Tears) 2 drops BID PRN OPB 05/29/16 04:45 06/28/16 04:44 06/10/16 07:57 2 DROPS Solifenacin (Vesicare) 10 mg HS PO 05/29/16 21:00 06/28/16 20:59 06/19/16 21:52 10 MG Thiamine HCl (Vitamin B-1 Tab) 100 mg DAILY PO 05/29/16 09:00 06/28/16 08:59 06/20/16 09:15 100 MG Artificial Tears (Lacri-Lube Oph Oint) 1 appln HS OPB 05/29/16 21:00 06/28/16 20:59 06/19/16 21:57 1 APPLN Bisacodyl (Dulcolax Supp) 10 mg TuTh@0530 FL 05/29/16 06:15 06/28/16 06:14 05/31/16 05:30 10 MG Bisacodyl (Dulcolax Supp) 10 mg SuMoWeFrSa@2330 FL 05/30/16 23:30 06/29/16 23:29 06/15/16 23:41 10 MG Polyethylene (Miralax Powder Packet) 17 gm QPM PO 05/29/16 21:00 06/28/16 20:59 06/19/16 21:58 17 GM Sodium Chloride ([place] Nasal [place]) 2 sprays QID NA 05/30/16 21:00 06/29/16 20:59 06/20/16 15:49 2 SPRAYS Multi-Ingredient Ointment (Eucerin Unscented Cr) 0.25 appln BID PRN EXT 05/30/16 22:00 06/29/16 21:59 06/10/16 08:21 0.25 APPLN Lifitegrast (Xiidra 5% Oph Soln) 1 drop BID OP 06/06/16 21:00 07/06/16 20:59 06/20/16 09:00 1 DROP Lansoprazole (Prevacid Solutab) 30 mg BID NG 06/08/16 21:00 07/08/16 20:59 06/20/16 09:14 30 MG Aspirin (Aspirin Chew) 81 mg DAILY NG 06/09/16 09:00 07/09/16 08:59 06/20/16 09:00 81 MG Docusate Sodium (coLACE SYRUP) 100 mg BID NG 06/08/16 21:00 07/08/16 20:59 06/19/16 21:47 100 MG Acetaminophen (Tylenol Soln) 650 mg Q4H PRN PO 06/09/16 09:45 07/09/16 09:44 06/18/16 15:29 650 MG Gabapentin (Neurontin) 100 mg QAM NG 06/10/16 09:00 07/09/16 08:59 06/20/16 09:00 100 MG Gabapentin (Neurontin) 200 mg DAILY@1600 NG 06/09/16 16:00 07/08/16 15:59 06/20/16 15:48 200 MG Gabapentin (Neurontin) 600 mg HS NG 06/09/16 21:00 07/08/16 20:59 06/19/16 21:46 600 MG Miscellaneous Information (Consult Glycemic Management Pharmacy) 1 ea UD N/A 06/11/16 09:42 07/11/16 09:41 Simethicone (Mylicon Chew Tab) 80 mg Q6H PRN PO 06/11/16 23:00 07/11/16 22:59 06/11/16 23:51 80 MG Morphine Sulfate (MoRPHine SULFATE INJ) 2 mg Q30M PRN IV 06/13/16 14:45 06/27/16 14:44 Heparin Sodium (Porcine) (Heparin 100 Unit/ml 5ml Flush) 5 ml PRN PRN IV 06/14/16 17:00 07/14/16 16:59 06/14/16 19:17 5 ML Pentosan Polysulfate Sodium (Elmiron) 100 mg BID PO 06/14/16 21:00 07/14/16 20:59 06/20/16 09:16 100 MG Enteral Nutritional Formula (Prosource No Carb) 30 ml DAILY@1200 PEG 06/15/16 12:00 07/15/16 11:59 06/19/16 13:43 30 ML Magnesium Oxide (Mag-Ox Tab) 400 mg HS PRN PO 06/15/16 18:00 07/15/16 17:59 06/17/16 15:38 400 MG Sterile Water (Tube Feeding Water Flush) 1 ea Q4H PEG 06/16/16 10:00 07/16/16 09:59 06/20/16 15:48 1 EA Hydrochlorothiazide (Hydrochlorothiazide Tab) 50 mg QAM PO 06/18/16 09:00 07/18/16 08:59 Future Hold Ipratropium [place] (Atrovent Hfa Inhaler) 4 puffs Q6 INH 06/17/16 15:00 07/17/16 14:59 06/20/16 15:34 4 PUFFS Albuterol (Ventolin Hfa Inhaler) 4 puffs Q6 INH 06/17/16 15:00 07/17/16 14:59 06/20/16 15:34 4 PUFFS Amlodipine Besylate (Norvasc Tab) 5 mg DAILY PO 06/18/16 09:00 07/18/16 08:59 06/20/16 09:13 5 MG Enteral Nutritional Formula 300 ml 300 ml TID@0600,1200,1800 PEG 06/18/16 12:00 07/18/16 11:59 06/20/16 06:14 300 ML Amphotericin B/ Sterile Water (Fungizone Irrigation Inj/ Sterile Water 1000 ml) 1,000 ml @ 41.667 mls/ hr DAILY@1200 IR 06/18/16 12:45 06/23/16 12:44 06/20/16 13:01 41.667 MLS/HR Insulin Human Regular (novoLIN-R) SLIDING SCALE TID@0600,1200,1800 SC 06/18/16 12:00 07/18/16 11:59 06/20/16 13:07 7 UNITS Insulin Human Regular (novoLIN-R) SLIDING SCALE DAILY@0000 SC 06/19/16 00:00 07/19/16 00:00 Lorazepam (Ativan Tab) 0.5 mg Q8H PRN PO 06/18/16 17:45 07/18/16 17:44 06/20/16 09:19 0.5 MG Buspirone HCl (Buspar Tab) 10 mg BID PO 06/18/16 21:00 07/18/16 20:59 06/20/16 09:13 10 MG Insulin Glargine (Lantus Solostar Pen) QAM SC 06/20/16 09:00 07/20/16 08:59 06/20/16 09:22 4 UNIT Potassium Chloride (Klor-Con Pwd) 20 meq BID GT 06/20/16 09:00 07/20/16 08:59 06/20/16 09:00 20 MEQ Diphenoxylate HCl/ Atropine (Lomotil Liquid-Substitute 2.5/0.025MG) 5 ml Q4 PRN GT 06/20/16 09:30 07/20/16 09:29 06/20/16 10:36 5 ML Objective Vital Signs Date Time Temp Pulse Resp B/P Pulse Ox O2 Delivery O2 Flow Rate FiO2 06/20/16 15:45 36.9 68 18 162/74 95 06/20/16 12:23 40 06/20/16 12:20 94 Mechanical Ventilator 2.0 40 06/20/16 08:00 94 Mechanical Ventilator 2.0 06/20/16 07:26 36.8 71 18 152/56 96 06/20/16 05:10 CPAP 3.0 06/20/16 04:00 36.9 74 22 140/64 98 Mechanical Ventilator 06/20/16 00:00 CPAP 3.0 06/19/16 23:00 36.5 74 17 155/65 97 Mechanical Ventilator 3.0 06/19/16 20:00 CPAP 3.0 06/19/16 20:00 36.8 79 17 125/57 97 Mechanical Ventilator 06/19/16 17:55 36.9 75 20 143/57 97 Mechanical Ventilator 3.0 06/19/16 17:32 36.8 77 21 95 3.0 06/19/16 16:01 36.8 77 21 130/60 95 Mechanical Ventilator 3.0 06/19/16 16:00 Mechanical Ventilator 3.0 Physical Exam General Appearance: no apparent distress, + pertinent finding (sleeping) Neck: + pertinent finding (tracheostomy) Respiratory/Chest: + pertinent finding (ventilated) Cardiovascular: regular rate, rhythm Extremities: + pertinent finding (quadriplegic) Neurologic/Psychiatric: + pertinent finding (sleeping) Skin: normal color, warm/dry Laboratory Results Last 24 Hours Test 06/19/16 18:35 06/20/16 00:05 06/20/16 05:45 06/20/16 06:17 Bedside Glucose 179 mg/dl 112 mg/dl 135 mg/dl White Blood Count 9.32 K/uL Red Blood Count 3.36 M/uL Hemoglobin 9.6 g/dL Hematocrit 31.1 % Mean Corpuscular Volume 92.6 fL Mean Corpuscular Hemoglobin 28.6 pg Mean Corpuscular Hemoglobin Concent 30.9 g/dl Platelet Count 229 K/uL Mean Platelet Volume 10.5 fL Neutrophils (%) (Auto) 80.6 % Lymphocytes (%) (Auto) 11.5 % Monocytes (%) (Auto) 5.7 % Eosinophils (%) (Auto) 1.0 % Basophils (%) (Auto) 0.2 % Neutrophils # (Auto) 7.52 K/uL Lymphocytes # (Auto) 1.07 K/uL Monocytes # (Auto) 0.53 K/uL Eosinophils # (Auto) 0.09 K/uL Basophils # (Auto) 0.02 K/uL RDW Standard Deviation 59.4 fL RDW Coefficient of Variation 17.8 % Immature Granulocyte % (Auto) 1.0 % Immature Granulocyte # (Auto) 0.09 K/uL Sodium Level 149 mmol/L Potassium Level 3.1 mmol/L Chloride Level 110 mmol/L Carbon Dioxide Level 31 mmol/L Anion Gap 8.0 mmol/L Blood Urea Nitrogen 35 mg/dl Creatinine 0.53 mg/dl Est Creatinine Clear Calc Drug Dose 87.2 ml/min Estimated GFR () 112.3 Estimated GFR (Non- 96.9 BUN/Creatinine Ratio 65.5 Random Glucose 149 mg/dl Calcium Level 8.7 mg/dl Test 06/20/16 13:00 Bedside Glucose 285 mg/dl Assessment and Plan (1) Quadriplegia Status: Chronic Onset: 10/23/2010 Patient with history of recurrent UTI's and pneumonia with respiratory failure, now with Non-Merari albicans yeast UTI. She is currently on Amphotericin bladder irrigation for [address] of the abdomen did show minimal hydronephrosis, but this is of questionable significance. She could have a slight kidney infection with yeast, but she was afebrile today. Therefore, would favor following this patient off of antibiotics and continuing bladder irrigation to complete 5 days. If she would begin to spike a fever again, will consider IV Caspofungin but will hold for now. We will follow. Case reviewed and agree with above assessment, ? drug fever vs uti
[2016-06-20] MEDS: POLYETHYLENE (MIRALAX) 17 GM PACK PO SCH (21:00)
[2016-06-20] MEDS: SOLIFENACIN 10 MG TAB PO SCH (21:05)
[2016-06-20] MEDS: ARTIFICIAL TEARS OP OINT 3.5 GM TUBE OPB SCH (21:05)
[2016-06-20] MEDS: ACETAMINOPHEN SOLN 650MG/20.3 ML UDC PO PRN (21:14)
[2016-06-20] MEDS: MoRPHine SULFATE 2 MG/ML CARP IV PRN ×2 (22:24→23:58)
[2016-06-20] MEDS: BISACODYL 10 MG SUPP PR SCH (23:55)
[2016-06-21] VITALS (7 sets, daily range): BP systolic 119–162; BP diastolic 44–80; PULSE 59–69; TEMP 36.2–36.7; O2SAT 92–97
[2016-06-21] MEDS: INSULIN HUMAN REGULAR SC SCH ×4 (00:05→18:00)
[2016-06-21] MEDS ORDERED: ONDANSETRON INJ 2 MG/ML 2 ML VIAL ONE (01:22)
[2016-06-21] MEDS ORDERED: ONDANSETRON INJ 2 MG/ML 2 ML VIAL IV ONE (01:30)
[2016-06-21] MEDS ORDERED: NURSING VERBAL MED ORDER ONE (01:30)
[2016-06-21] MEDS: IPRATROPIUM BROMIDE HFA INHALER INH SCH ×4 (02:08→21:00)
[2016-06-21] MEDS: ALBUTEROL HFA 8 GM INHALER INH SCH ×4 (02:09→21:00)
[2016-06-21] MEDS: TUBE FEEDING WATER FLUSH PEG SCH ×5 (04:00→20:17)
[2016-06-21] MEDS: BISACODYL 10 MG SUPP PR SCH (06:03)
[2016-06-21] MEDS: NOVASOURCE RENAL 1000ML BAG PEG SCH ×3 (06:04→18:00)
--- NOTE | 2016-06-21 07:30 | DIAGNOSTIC IMAGING REPORT ---
CHEST ONE VIEW PORTABLE CLINICAL HISTORY: f/u pneumonia pneumonia COMPARISON STUDY: 06/16/2016 FINDINGS: Findings of congestive failure is stable to slightly improved. Persistent increase in density left base. Tracheostomy tube in good position. Central lines in superior vena cava. IMPRESSION: Congestive heart failure is stable to slightly improved radiographically from the prior exam. Electronically signed by: Pollo Sultana M.D. 06/21/2016 7:29 AM Dictated Date/Time: 06/21/2016 7:27 AM
[2016-06-21] MEDS: CHOLECALCIFEROL 1000 INTER.UNIT TAB PO SCH ×2 (08:24→21:29)
[2016-06-21] MEDS: DIPYRIDAMOLE/ASPIRIN CAP PO SCH ×2 (08:25→21:28)
[2016-06-21] MEDS: CLOPIDOGREL BISULFATE 75 MG TAB PO SCH (08:25)
[2016-06-21] MEDS: POTASSIUM CHLORIDE PWD 20 MEQ PACK GT SCH ×2 (08:25→21:26)
[2016-06-21] MEDS: ALLOPURINOL 100 MG TAB PO SCH (08:25)
[2016-06-21] MEDS: ESCITALOPRAM OXALATE 20 MG TAB PO SCH (08:26)
[2016-06-21] MEDS: THIAMINE HCL 100 MG TAB PO SCH (08:26)
[2016-06-21] MEDS: AMLODIPINE BESYLATE 5 MG TAB PO SCH (08:26)
[2016-06-21] MEDS: ASCORBIC ACID 500 MG TAB PO SCH ×2 (08:26→21:30)
[2016-06-21] MEDS: LANSOPRAZOLE SOLUTAB 30 MG NG SCH ×2 (08:26→21:28)
[2016-06-21] MEDS: CALCIUM 600MG + VIT D 400 IU TAB PO SCH ×2 (08:27→21:30)
[2016-06-21] MEDS: PENTOSAN POLYSULFATE SODIUM 100 MG PO SCH ×2 (08:27→21:26)
[2016-06-21] MEDS: DOCUSATE SODIUM 100 MG/10 ML UDC NG SCH ×2 (08:28→21:27)
[2016-06-21] MEDS: GABAPENTIN 250 MG/5 ML 470 ML BTL NG SCH ×3 (08:31→21:27)
[2016-06-21] MEDS: SODIUM CHLORIDE 0.65% NA SOLN 45 ML (OCEAN) SCH ×4 (08:34→21:00)
[2016-06-21] MEDS: LIFITEGRAST 5% OP SCH ×2 (08:42→21:00)
[2016-06-21] MEDS: INSULIN GLARGINE SOLOSTAR 100 UNITS/ML 3 ML PEN SC SCH (08:43)
[2016-06-21] MEDS: ONDANSETRON INJ 2 MG/ML 2 ML VIAL IV PRN ×2 (08:48→16:02)
[2016-06-21] MEDS: ASPIRIN 81 MG CHEW NG SCH (08:51)
--- NOTE | 2016-06-21 09:35 | PULMONARY PROGRESS NOTE ---
DATE: 06/21/2016 TIME: 9:05 a.m. SUBJECTIVE: The patient is slightly better today. She is less restless. She has not had any episodes of significant shortness of breath or hypoxia. I discussed the situation with her bedside caregiver. She feels that Florence still keeps asking the same questions or stating the same thing. This is not exactly normal for her. There has been no secretion problem that I am aware of. OBJECTIVE: GENERAL: The patient appeared comfortable. Trach is in place. HEART: Heart rate is 60. Blood pressure 119/44. LUNGS: She still has prominent rales bilaterally. Oxygen saturation is 94% on mechanical ventilation with 2 liters. Reportedly, she had been down to 1 liter overnight but they boosted it up because her saturations dropped below 90. ABDOMEN: Large but relatively soft. Bowel sounds were present. PEG tube is in place. EXTREMITIES: Showed no significant edema. She obviously cannot move. Chest x-ray done today shows some definite improvement in the infiltrates and/or edema seen bilaterally. The most prominent improvement was on the right side, I believe. Blood sugar this morning was 129. It does not appear that there were other labs today. COMMENTS: The patient has now been afebrile for approximately 48 hours. She clinically looks better. This seems to be the most stable she has been. One of the care managers spoke with me. She states that the patient's daughter is concerned about how she can be managed if she would need PEEP again. Apparently, her current ventilator does not allow or have the capabilities of doing PEEP. The floor care technician tells me that according to [facility], there is no other alternative device. The alternative if PEEP were necessary might be to go to a facility taking mechanical ventilation. I brought up the possibility of Trilogy. The floor care technician states that [facility] tells them they cannot be utilized with tracheostomy from a licensing perspective. I do not believe that is correct. I suggested that she might contact the ALS clinic in [place], [place], where I believe they have been using Trilogy at home on tracheostomy patients. She indicated she would assess that. Apparently, Trilogy could accommodate the use of PEEP. Right now, at least she does not appear to need the PEEP. I would continue with her current regimen of treatment.
[2016-06-21] MEDS: AMPHOTERICIN B IRRIGATION INJ 50 MG in STERILE WATER 1000 ML 1,000 ML IR SCH (11:14)
[2016-06-21] MEDS: PROSOURCE NOCARB 30ML/PKT PEG SCH (12:00)
[2016-06-21] MEDS ORDERED: INSULIN GLARGINE SOLOSTAR 100 UNITS/ML 3 ML PEN SC ONE (14:15)
--- NOTE | 2016-06-21 14:28 | Pharmacy Progress Note ---
Glycemic Control: Progress Nt Date of Service Jun 21, 2016. Scope Glycemic Pharmacist consulted by Melvin Marques PA-C on 06/11/16 for glycemic control and to write orders per [facility] inpatient glycemic control protocol. Objective Accuchecks BSG (last 24hrs): Test 06/20/16 18:18 06/21/16 00:01 06/21/16 06:07 06/21/16 11:39 Bedside Glucose 71 mg/dl (70-90) 226 mg/dl (70-90) 129 mg/dl (70-90) 223 mg/dl (70-90) Recent Pertinent Medications Outpatient Anti-diabetic Regimen: * Novolog SSI * A1c = 6.0 % 05/29/16 The patient is currently receiving: * Basal insulin: Lantus 4 units, hold if BSG <140 mg/dL * Correctional Insulin: Novolog Correction per scale q6h Goal Range: 140-180 mg/dL Correction Factor: 15 mg/dL/unit * Prandial insulin: Per carb ratio of 1 unit per 5 grams CHO consumed Risk Factors for Insulin Resistance: * Infection: amphotericin bladder irrigation * Diet: Novasource Renal boluses @ 300 mL TID (delivers 55 gm CHO per bolus) + Prosource Nocarb daily * Mechanical Ventilation: Yes (home regimen) Assessment & Plan ASSESSMENT: 06/21/16 * 71 yo F well known to our glycemic service from multiple past admissions, controlled as outpatient with Novolog scale only * Glycemic control over the past 24 hours has been up and down with BSGs ranging from 71-284 mg/dL * Her regimen thus far has been bolus heavy versus basal insulin * She continues to intermittently refuse Novosource boluses which has made her BSG control difficult * Last evening she refused her dinner bolus, and her BSG went from 71--> 226 mg/ dL so I feel she needs some basal insulin on board * Give dose of Lantus now, and continue daily if BSG >120 mg/dL * ADA & AACE recommend a goal blood sugar range 140-180 mg/dl for the majority of critically ill & non-critically ill patients. However, more stringent targets may be selected in individual cases. Change goal to 120-160 mg/dL. PLAN FOR INPATIENT GLYCEMIC CONTROL: * Basal insulin with LANTUS 5 units SQ X 1 * Continue LANTUS 5 units QAM if BSG >120 mg/dL * Correctional Insulin with REGULAR per scale Q6hrs while NPO * Goal Range: Low 120 mg/dL - High 160 mg/dL * Correction Factor: 15 mg/dL/unit * Nutritional / Prandial insulin per carb ratio of 1 unit per 5 grams CHO consumed * Please note that the plan above was derived based on current level of insulin resistance and hospital stress. These recommendations are appropriate for inpatient admission only. Plan of care upon discharge will need to be reassessed to avoid potential outpatient hypo/hyperglycemia. Thank you.
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
[2016-06-21] MEDS: SOLIFENACIN 10 MG TAB PO SCH (21:26)
[2016-06-21] MEDS: ARTIFICIAL TEARS OP OINT 3.5 GM TUBE OPB SCH (21:28)
[2016-06-21] MEDS: POLYETHYLENE (MIRALAX) 17 GM PACK PO SCH (21:31)
[2016-06-21] MEDS: MELATONIN 3 MG TAB PO PRN (23:39)
[2016-06-22] VITALS (8 sets, daily range): BP systolic 126–173; BP diastolic 48–71; PULSE 61–86; TEMP 36.4–36.9; O2SAT 95–100
[2016-06-22] MEDS: INSULIN HUMAN REGULAR SC SCH ×5 (00:02→23:53)
[2016-06-22] MEDS: TUBE FEEDING WATER FLUSH PEG SCH ×7 (00:14→23:47)
[2016-06-22] MEDS: ALBUTEROL HFA 8 GM INHALER INH SCH ×4 (01:45→21:00)
[2016-06-22] MEDS: IPRATROPIUM BROMIDE HFA INHALER INH SCH ×4 (01:45→21:00)
[2016-06-22] MEDS: ACETAMINOPHEN SOLN 650MG/20.3 ML UDC PO PRN ×3 (03:48→23:53)
[2016-06-22] MEDS: NOVASOURCE RENAL 1000ML BAG PEG SCH ×3 (06:17→18:29)
[2016-06-22] MEDS: ASCORBIC ACID 500 MG TAB PO SCH ×2 (07:51→20:32)
[2016-06-22] MEDS: LANSOPRAZOLE SOLUTAB 30 MG NG SCH ×2 (07:52→20:31)
[2016-06-22] MEDS: CHOLECALCIFEROL 1000 INTER.UNIT TAB PO SCH ×2 (07:52→20:30)
[2016-06-22] MEDS: CALCIUM 600MG + VIT D 400 IU TAB PO SCH ×2 (07:53→20:31)
[2016-06-22] MEDS: ESCITALOPRAM OXALATE 20 MG TAB PO SCH (07:53)
[2016-06-22] MEDS: ASPIRIN 81 MG CHEW NG SCH (07:54)
[2016-06-22] MEDS: POTASSIUM CHLORIDE PWD 20 MEQ PACK GT SCH ×2 (07:54→20:33)
[2016-06-22] MEDS: DOCUSATE SODIUM 100 MG/10 ML UDC NG SCH ×2 (07:55→20:31)
[2016-06-22] MEDS: AMLODIPINE BESYLATE 5 MG TAB PO SCH (07:55)
[2016-06-22] MEDS: PENTOSAN POLYSULFATE SODIUM 100 MG PO SCH ×2 (07:56→20:33)
[2016-06-22] MEDS: THIAMINE HCL 100 MG TAB PO SCH (07:56)
[2016-06-22] MEDS: CLOPIDOGREL BISULFATE 75 MG TAB PO SCH (07:56)
[2016-06-22] MEDS: SODIUM CHLORIDE 0.65% NA SOLN 45 ML (OCEAN) SCH ×4 (07:57→20:32)
[2016-06-22] MEDS: ALLOPURINOL 100 MG TAB PO SCH (07:57)
[2016-06-22] MEDS: LIFITEGRAST 5% OP SCH ×2 (07:57→20:35)
[2016-06-22] MEDS: DIPYRIDAMOLE/ASPIRIN CAP PO SCH ×2 (07:57→20:29)
[2016-06-22] MEDS: INSULIN GLARGINE SOLOSTAR 100 UNITS/ML 3 ML PEN SC SCH (07:58)
[2016-06-22] MEDS: GABAPENTIN 250 MG/5 ML 470 ML BTL NG SCH ×3 (07:59→20:36)
--- NOTE | 2016-06-22 09:40 | PULMONARY PROGRESS NOTE ---
DATE: 06/22/2016 DATE: 06/22/2016. TIME: 9:10 a.m. SUBJECTIVE: The patient is feeling well. She has no complaints today. She seems to be getting more and more relaxed. She has not had any major issues since yesterday. OBJECTIVE: GENERAL: The patient appears comfortable. She remains afebrile and has not had any significant fever for 72 hours. VITAL SIGNS: Current temperature is 36.4. Tracheostomy is in place. HEAD, EYES, EARS, NOSE, AND THROAT: There are not a lot of secretions. HEART: Rate was 63 per minute. Blood pressure 135/48. LUNGS: Lung torres revealed very mild rales on the left. Right side was quite clear. There has overall been a marked improvement in the lung sounds over the past few days. Saturation is 95%. Respiratory rate was 14. ABDOMEN: Remains somewhat obese. Bowel sounds were present. A feeding tube is in place. The patient has expressed some desire to eat. EXTREMITIES: Showed trace edema. She of course is quadriplegic with no movement. Blood sugar this morning was 132. I believe that was the only lab work. IMPRESSIONS: 1. Acute on chronic respiratory failure with hypoxia. 2. Bilateral pneumonia. 3. Quadriplegia. 4. Ventilator dependent. COMMENTS AND RECOMMENDATIONS: The patient continues to be improving. She is almost approaching the point where she could be discharged back to home. Respiratory cooln, she has been quite stable. I will plan on doing a follow-up chest x-ray on Saturday. We will see if she has further clearing of the infiltrates or edema. Hopefully, as the patient improves, she might once again be able to resume some swallowing. I would not anticipate wanting to discontinue the PEG tube, however.
[2016-06-22] MEDS: AMPHOTERICIN B IRRIGATION INJ 50 MG in STERILE WATER 1000 ML 1,000 ML IR SCH (11:14)
[2016-06-22] MEDS: PROSOURCE NOCARB 30ML/PKT PEG SCH (11:46)
[2016-06-22] MEDS: PHENAZOPYRIDINE HCL 200 MG TAB PO PRN (11:49)
--- NOTE | 2016-06-22 11:59 | Infectious Disease Progress Nt ---
Progress Note Date of Service Jun 22, 2016. Subjective Pt evaluation today including: conversation w/ patient, physical exam, chart review, lab review, review of studies, review of inpatient medication list Repeat CXR showed slight improvement of CHF and persistent increase in left basilar density. The patient has been afebrile. Today will be day 5 of Ampho B bladder irrigation. She is feeling well this morning and states that she is ready to go home. No new labs or micro. All Other Systems: Reviewed and Negative Medications Current Inpatient Medications Medications (Trade) Dose Ordered Sig/Tasha Route Start Time Stop Time Status Last Admin Dose Admin Levalbuterol (Xopenex 1.25MG/ 3ML Neb) 1.25 mg Q4H PRN INH 05/28/16 23:00 06/27/16 22:59 Allopurinol (Zyloprim Tab) 100 mg DAILY PO 05/29/16 09:00 06/28/16 08:59 06/22/16 07:57 100 MG Ascorbic Acid (Vitamin C Tab) 500 mg BID PO 05/29/16 09:00 06/28/16 08:59 06/22/16 07:51 500 MG Dipyridamole/ Aspirin (Aggrenox 200MG/ 25MG Cap) 1 cap BID PO 05/29/16 09:00 06/28/16 08:59 06/22/16 07:57 1 CAP Calcium/Vitamin D (Caltrate Plus Tab) 1 tab BID PO 05/29/16 09:00 06/28/16 08:59 06/22/16 07:53 1 TAB Cholecalciferol (Vitamin D Tab) 1,000 inter.unit BID PO 05/29/16 09:00 06/28/16 08:59 06/22/16 07:52 1,000 INTER.UNIT Clopidogrel Bisulfate (plAVix TAB) 75 mg DAILY PO 05/29/16 09:00 06/28/16 08:59 06/22/16 07:56 75 MG Escitalopram Oxalate (Lexapro Tab) 20 mg QAM PO 05/29/16 09:00 06/28/16 08:59 06/22/16 07:53 20 MG Magnesium Chloride (Slow-Mag Tab) 64 mg BID PO 05/29/16 09:00 06/28/16 08:59 Future Hold 06/06/16 21:31 64 MG Phenazopyridine HCl (Pyridium Tab) 200 mg DAILY PRN PO 05/28/16 23:00 06/27/16 22:59 06/14/16 20:35 200 MG Artificial Tears (Artificial Tears) 2 drops BID PRN OPB 05/29/16 04:45 06/28/16 04:44 06/10/16 07:57 2 DROPS Solifenacin (Vesicare) 10 mg HS PO 05/29/16 21:00 06/28/16 20:59 06/21/16 21:26 10 MG Thiamine HCl (Vitamin B-1 Tab) 100 mg DAILY PO 05/29/16 09:00 06/28/16 08:59 06/22/16 07:56 100 MG Artificial Tears (Lacri-Lube Oph Oint) 1 appln HS OPB 05/29/16 21:00 06/28/16 20:59 06/21/16 21:28 1 APPLN Bisacodyl (Dulcolax Supp) 10 mg TuTh@0530 PA 05/29/16 06:15 06/28/16 06:14 05/31/16 05:30 10 MG Bisacodyl (Dulcolax Supp) 10 mg SuMoWeFrSa@2330 PA 05/30/16 23:30 06/29/16 23:29 06/20/16 23:55 10 MG Polyethylene (Miralax Powder Packet) 17 gm QPM PO 05/29/16 21:00 06/28/16 20:59 06/21/16 21:31 17 GM Sodium Chloride ([place] Nasal [place]) 2 sprays QID NA 05/30/16 21:00 06/29/16 20:59 06/21/16 13:00 2 SPRAYS Multi-Ingredient Ointment (Eucerin Unscented Cr) 0.25 appln BID PRN EXT 05/30/16 22:00 06/29/16 21:59 06/10/16 08:21 0.25 APPLN Lifitegrast (Xiidra 5% Oph Soln) 1 drop BID OP 06/06/16 21:00 07/06/16 20:59 06/22/16 07:57 1 DROP Lansoprazole (Prevacid Solutab) 30 mg BID NG 06/08/16 21:00 3/26/17 20:59 06/22/16 07:52 30 MG Aspirin (Aspirin Chew) 81 mg DAILY NG 06/09/16 09:00 07/09/16 08:59 06/22/16 07:54 81 MG Docusate Sodium (coLACE SYRUP) 100 mg BID NG 06/08/16 21:00 07/08/16 20:59 06/21/16 21:27 100 MG Acetaminophen (Tylenol Soln) 650 mg Q4H PRN PO 06/09/16 09:45 07/09/16 09:44 06/22/16 03:48 650 MG Gabapentin (Neurontin) 100 mg QAM NG 06/10/16 09:00 07/09/16 08:59 06/22/16 07:59 100 MG Gabapentin (Neurontin) 200 mg DAILY@1600 NG 06/09/16 16:00 07/08/16 15:59 06/21/16 15:51 200 MG Gabapentin (Neurontin) 600 mg HS NG 06/09/16 21:00 07/08/16 20:59 06/21/16 21:27 600 MG Miscellaneous Information (Consult Glycemic Management Pharmacy) 1 ea UD N/A 06/11/16 09:42 07/11/16 09:41 Simethicone (Mylicon Chew Tab) 80 mg Q6H PRN PO 06/11/16 23:00 07/11/16 22:59 06/11/16 23:51 80 MG Morphine Sulfate (MoRPHine SULFATE INJ) 2 mg Q30M PRN IV 06/13/16 14:45 06/27/16 14:44 06/20/16 23:58 2 MG Heparin Sodium (Porcine) (Heparin 100 Unit/ml 5ml Flush) 5 ml PRN PRN IV 06/14/16 17:00 07/14/16 16:59 06/14/16 19:17 5 ML Pentosan Polysulfate Sodium (Elmiron) 100 mg BID PO 06/14/16 21:00 07/14/16 20:59 06/22/16 07:56 100 MG Enteral Nutritional Formula (Prosource No Carb) 30 ml DAILY@1200 PEG 06/15/16 12:00 07/15/16 11:59 06/21/16 12:00 30 ML Magnesium Oxide (Mag-Ox Tab) 400 mg HS PRN PO 06/15/16 18:00 07/15/16 17:59 06/17/16 15:38 400 MG Sterile Water (Tube Feeding Water Flush) 1 ea Q4H PEG 06/16/16 10:00 07/16/16 09:59 06/22/16 07:50 1 EA Hydrochlorothiazide (Hydrochlorothiazide Tab) 50 mg QAM PO 06/18/16 09:00 07/18/16 08:59 Future Hold Amlodipine Besylate (Norvasc Tab) 5 mg DAILY PO 06/18/16 09:00 07/18/16 08:59 06/22/16 07:55 5 MG Enteral Nutritional Formula 300 ml 300 ml TID@0600,1200,1800 PEG 06/18/16 12:00 07/18/16 11:59 06/22/16 06:17 300 ML Amphotericin B/ Sterile Water (Fungizone Irrigation Inj/ Sterile Water 1000 ml) 1,000 ml @ 41.667 mls/ hr DAILY@1200 IR 06/18/16 12:45 06/23/16 12:44 06/22/16 11:14 41.667 MLS/HR Insulin Human Regular (novoLIN-R) SLIDING SCALE TID@0600,1200,1800 SC 06/18/16 12:00 07/18/16 11:59 06/21/16 12:28 4 UNITS Insulin Human Regular (novoLIN-R) SLIDING SCALE DAILY@0000 SC 06/19/16 00:00 07/19/16 00:00 06/22/16 00:02 3 UNITS Lorazepam (Ativan Tab) 0.5 mg Q8H PRN PO 06/18/16 17:45 07/18/16 17:44 06/20/16 09:19 0.5 MG Buspirone HCl (Buspar Tab) 10 mg BID PO 06/18/16 21:00 07/18/16 20:59 06/22/16 07:56 10 MG Insulin Glargine (Lantus Solostar Pen) QAM SC 06/20/16 09:00 07/20/16 08:59 06/22/16 07:58 5 UNIT Potassium Chloride (Klor-Con Pwd) 20 meq BID GT 06/20/16 09:00 07/20/16 08:59 06/22/16 07:54 20 MEQ Diphenoxylate HCl/ Atropine (Lomotil Liquid-Substitute 2.5/0.025MG) 5 ml Q4 PRN GT 06/20/16 09:30 07/20/16 09:29 06/20/16 10:36 5 ML Ipratropium [place] (Atrovent Hfa Inhaler) 4 puffs Q6R INH 06/21/16 03:00 07/21/16 02:59 06/22/16 07:05 4 PUFFS Albuterol (Ventolin Hfa Inhaler) 4 puffs Q6R INH 06/21/16 03:00 07/21/16 02:59 06/22/16 07:05 4 PUFFS Ondansetron HCl (Zofran Inj) 4 mg Q4H PRN IV 06/21/16 08:45 07/21/16 08:44 06/21/16 16:02 4 MG Objective Vital Signs Date Time Temp Pulse Resp B/P Pulse Ox O2 Delivery O2 Flow Rate FiO2 06/22/16 08:00 Mechanical Ventilator 2.0 06/22/16 07:00 36.4 63 12 135/48 95 Trach Collar 06/22/16 04:20 36.9 61 16 129/62 95 06/22/16 04:00 Mechanical Ventilator 2.0 06/22/16 00:08 66 18 170/71 95 06/21/16 23:59 Mechanical Ventilator 2.0 06/21/16 20:00 Mechanical Ventilator 2.0 06/21/16 19:53 36.7 68 20 160/58 94 Mechanical Ventilator 06/21/16 16:00 Mechanical Ventilator 2.0 06/21/16 15:50 36.5 59 31 162/61 97 Mechanical Ventilator Physical Exam General Appearance: WD/WN, no apparent distress Eyes: normal inspection, sclerae normal ENT: hearing grossly normal Neck: + pertinent finding (Tracheostomy, PEG tube) Respiratory/Chest: no respiratory distress, no accessory muscle use, + pertinent finding (ventilated) Cardiovascular: regular rate, rhythm Extremities: + pertinent finding (quadriplegic) Neurologic/Psychiatric: alert, normal mood/affect Skin: normal color, warm/dry, no rash Laboratory Results Last 24 Hours Test 06/21/16 18:04 06/21/16 23:55 06/22/16 06:10 Bedside Glucose 95 mg/dl 197 mg/dl 132 mg/dl Assessment and Plan (1) Quadriplegia Status: Chronic Onset: 10/23/2010 Patient with history of recurrent UTI's and pneumonia with respiratory failure, now with Non-Merari albicans yeast UTI. She is currently on Amphotericin bladder irrigation for 5 days. She has been afebrile. She will complete 5 days of Amphotericin after today's dose is completed. Upon discussion with her caregiver and with [facility], they would prefer to continue previous rotational antibiotic cycle of IV Meropenem for 1 month and then PO Levaquin x 1 month along with Gentamicin bladder irrigations. This had been working well for Florence with keeping her recurrent UTI's under control. I feel that this patient does have continued risk of recurrent yeast UTI if she continues this regimen, but she did have many bacterial UTI's prior to initiate of current at home therapy. Therefore, recommend continuation of previous regimen upon discharge. She is OK for D/C from ID perspective after completion of Amphotericin and once cleared medically. case reviewed and agree with above assessment.
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
[2016-06-22] MEDS: SOLIFENACIN 10 MG TAB PO SCH (20:34)
[2016-06-22] MEDS: POLYETHYLENE (MIRALAX) 17 GM PACK PO SCH (20:34)
[2016-06-22] MEDS: ARTIFICIAL TEARS OP OINT 3.5 GM TUBE OPB SCH (20:35)
[2016-06-22] MEDS: BISACODYL 10 MG SUPP PR SCH (20:37)
[2016-06-22] MEDS: ONDANSETRON INJ 2 MG/ML 2 ML VIAL IV PRN (20:41)
[2016-06-22] MEDS: MELATONIN 3 MG TAB PO PRN (22:21)
[2016-06-23] MEDS: IPRATROPIUM BROMIDE HFA INHALER INH SCH ×4 (02:20→19:29)
[2016-06-23] MEDS: ALBUTEROL HFA 8 GM INHALER INH SCH ×4 (02:20→19:29)
[2016-06-23] MEDS: TUBE FEEDING WATER FLUSH PEG SCH ×6 (03:19→23:35)
[2016-06-23 04:33] VITALS: BP 121/63; PULSE 60; O2SAT 93
[2016-06-23] MEDS: NOVASOURCE RENAL 1000ML BAG PEG SCH ×3 (06:00→19:10)
[2016-06-23] MEDS: INSULIN HUMAN REGULAR SC SCH ×3 (06:00→19:15)
[2016-06-23 07:50] VITALS: BP 114/45; PULSE 67; TEMP 36.8; O2SAT 96
[2016-06-23] MEDS: POTASSIUM CHLORIDE PWD 20 MEQ PACK GT SCH ×2 (08:56→21:50)
[2016-06-23] MEDS: DOCUSATE SODIUM 100 MG/10 ML UDC NG SCH ×2 (08:56→21:52)
[2016-06-23] MEDS: ASPIRIN 81 MG CHEW NG SCH (08:56)
[2016-06-23] MEDS: SODIUM CHLORIDE 0.65% NA SOLN 45 ML (OCEAN) SCH ×4 (08:56→21:51)
[2016-06-23] MEDS: GABAPENTIN 250 MG/5 ML 470 ML BTL NG SCH ×3 (08:57→21:59)
[2016-06-23] MEDS: LANSOPRAZOLE SOLUTAB 30 MG NG SCH ×2 (08:58→21:55)
[2016-06-23] MEDS: LIFITEGRAST 5% OP SCH ×2 (08:59→21:00)
[2016-06-23] MEDS: DIPYRIDAMOLE/ASPIRIN CAP PO SCH ×2 (08:59→21:53)
[2016-06-23] MEDS: CALCIUM 600MG + VIT D 400 IU TAB PO SCH ×2 (09:00→21:53)
[2016-06-23] MEDS: THIAMINE HCL 100 MG TAB PO SCH (09:00)
[2016-06-23] MEDS: ESCITALOPRAM OXALATE 20 MG TAB PO SCH (09:00)
[2016-06-23] MEDS: PENTOSAN POLYSULFATE SODIUM 100 MG PO SCH ×2 (09:00→21:00)
[2016-06-23] MEDS: AMLODIPINE BESYLATE 5 MG TAB PO SCH (09:01)
[2016-06-23] MEDS: ASCORBIC ACID 500 MG TAB PO SCH ×2 (09:01→21:55)
[2016-06-23] MEDS: CLOPIDOGREL BISULFATE 75 MG TAB PO SCH (09:01)
[2016-06-23] MEDS: CHOLECALCIFEROL 1000 INTER.UNIT TAB PO SCH ×2 (09:01→22:00)
[2016-06-23] MEDS: ALLOPURINOL 100 MG TAB PO SCH (09:02)
[2016-06-23] MEDS: INSULIN GLARGINE SOLOSTAR 100 UNITS/ML 3 ML PEN SC SCH (09:09)
[2016-06-23] MEDS: AMPHOTERICIN B IRRIGATION INJ 50 MG in STERILE WATER 1000 ML 1,000 ML IR SCH (11:47)
[2016-06-23 11:51] VITALS: BP 134/54; PULSE 62; TEMP 37; O2SAT 94
[2016-06-23] MEDS: PROSOURCE NOCARB 30ML/PKT PEG SCH (12:41)
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
[2016-06-23 16:15] VITALS: BP 130/42; PULSE 65; TEMP 36.7; O2SAT 95
[2016-06-23 20:03] VITALS: BP 150/95; PULSE 63; TEMP 36.4; O2SAT 95
[2016-06-23] MEDS: SOLIFENACIN 10 MG TAB PO SCH (21:00)
[2016-06-23] MEDS: POLYETHYLENE (MIRALAX) 17 GM PACK PO SCH (21:54)
[2016-06-23] MEDS: ARTIFICIAL TEARS OP OINT 3.5 GM TUBE OPB SCH (21:56)
[2016-06-23] MEDS: ONDANSETRON INJ 2 MG/ML 2 ML VIAL IV PRN (22:32)
[2016-06-23] MEDS: MELATONIN 3 MG TAB PO PRN (22:33)
[2016-06-23] MEDS: ACETAMINOPHEN SOLN 650MG/20.3 ML UDC PO PRN (22:35)
[2016-06-23] MEDS: BISACODYL 10 MG SUPP PR SCH (23:35)
[2016-06-23 23:50] VITALS: BP 140/70; PULSE 66; TEMP 36.5; O2SAT 97
[2016-06-24] MEDS: INSULIN HUMAN REGULAR SC SCH ×5 (00:30→22:34)
[2016-06-24] MEDS: IPRATROPIUM BROMIDE HFA INHALER INH SCH ×4 (01:46→19:21)
[2016-06-24] MEDS: ALBUTEROL HFA 8 GM INHALER INH SCH ×4 (01:47→19:21)
[2016-06-24] MEDS: TUBE FEEDING WATER FLUSH PEG SCH ×3 (04:09→11:55)
[2016-06-24 04:40] VITALS: BP 135/71; PULSE 56; TEMP 37; O2SAT 95
[2016-06-24] MEDS: NOVASOURCE RENAL 1000ML BAG PEG SCH ×2 (06:19→11:55)
[2016-06-24 07:49] VITALS: BP 149/55; PULSE 64; TEMP 36.8; O2SAT 98
[2016-06-24] MEDS: POTASSIUM CHLORIDE PWD 20 MEQ PACK GT SCH ×2 (08:24→22:24)
[2016-06-24] MEDS: SODIUM CHLORIDE 0.65% NA SOLN 45 ML (OCEAN) SCH ×4 (08:24→21:00)
[2016-06-24] MEDS: ASPIRIN 81 MG CHEW NG SCH (08:25)
[2016-06-24] MEDS: DOCUSATE SODIUM 100 MG/10 ML UDC NG SCH ×2 (08:25→21:00)
[2016-06-24] MEDS: INSULIN GLARGINE SOLOSTAR 100 UNITS/ML 3 ML PEN SC SCH (08:25)
[2016-06-24] MEDS: GABAPENTIN 250 MG/5 ML 470 ML BTL NG SCH ×3 (08:27→22:31)
[2016-06-24] MEDS: LANSOPRAZOLE SOLUTAB 30 MG NG SCH ×2 (08:28→22:24)
[2016-06-24] MEDS: LIFITEGRAST 5% OP SCH ×2 (08:28→21:00)
[2016-06-24] MEDS: DIPYRIDAMOLE/ASPIRIN CAP PO SCH ×2 (08:29→22:25)
[2016-06-24] MEDS: CALCIUM 600MG + VIT D 400 IU TAB PO SCH ×2 (08:30→22:23)
[2016-06-24] MEDS: PENTOSAN POLYSULFATE SODIUM 100 MG PO SCH ×2 (08:30→22:25)
[2016-06-24] MEDS: ESCITALOPRAM OXALATE 20 MG TAB PO SCH (08:30)
[2016-06-24] MEDS: CLOPIDOGREL BISULFATE 75 MG TAB PO SCH (08:31)
[2016-06-24] MEDS: CHOLECALCIFEROL 1000 INTER.UNIT TAB PO SCH ×2 (08:31→22:21)
[2016-06-24] MEDS: ASCORBIC ACID 500 MG TAB PO SCH ×2 (08:31→22:22)
[2016-06-24] MEDS: ALLOPURINOL 100 MG TAB PO SCH (08:31)
[2016-06-24] MEDS: THIAMINE HCL 100 MG TAB PO SCH (08:31)
[2016-06-24] MEDS: AMLODIPINE BESYLATE 5 MG TAB PO SCH (08:31)
[2016-06-24 11:40] VITALS: BP 171/68; PULSE 69; TEMP 37.5; O2SAT 97
[2016-06-24] MEDS: PROSOURCE NOCARB 30ML/PKT PEG SCH (11:55)
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
[2016-06-24] MEDS ORDERED: DIPHENOXYLATE/ATROPINE 2.5/0.025MG 5ML PO PRN (15:15)
[2016-06-24 15:40] VITALS: BP 127/61; PULSE 71; TEMP 37.1; O2SAT 97
[2016-06-24] MEDS: [UNRECOGNIZED DRUG - REMARK] PEG SCH ×4 (16:25→21:30)
[2016-06-24] MEDS: FIBERSOURCE HN 1000ML BAG PEG SCH ×4 (16:25→21:50)
[2016-06-24] MEDS: ONDANSETRON INJ 2 MG/ML 2 ML VIAL IV PRN (17:47)
[2016-06-24 19:38] VITALS: BP 108/73; PULSE 81; TEMP 37.2; O2SAT 98
[2016-06-24] MEDS: ARTIFICIAL TEARS OP OINT 3.5 GM TUBE OPB SCH (21:00)
[2016-06-24] MEDS: POLYETHYLENE (MIRALAX) 17 GM PACK PO SCH (21:00)
[2016-06-24] MEDS: SOLIFENACIN 10 MG TAB PO SCH (22:22)
[2016-06-24] MEDS: BISACODYL 10 MG SUPP PR SCH (22:27)
[2016-06-24] MEDS: ACETAMINOPHEN SOLN 650MG/20.3 ML UDC PO PRN (23:27)
[2016-06-25] VITALS: BP 110/39; PULSE 65; TEMP 36.4; O2SAT 96
[2016-06-25] MEDS: INSULIN HUMAN REGULAR SC SCH ×3 (01:22→11:31)
[2016-06-25] MEDS: MELATONIN 3 MG TAB PO PRN (01:53)
[2016-06-25] MEDS: IPRATROPIUM BROMIDE HFA INHALER INH SCH ×2 (01:55→07:04)
[2016-06-25] MEDS: ALBUTEROL HFA 8 GM INHALER INH SCH ×2 (01:55→07:04)
[2016-06-25] MEDS: MoRPHine SULFATE 2 MG/ML CARP IV PRN (02:56)
[2016-06-25 04:00] VITALS: BP 168/67; PULSE 64; TEMP 37; O2SAT 95
[2016-06-25] MEDS: [UNRECOGNIZED DRUG - REMARK] PEG SCH ×4 (07:00→11:32)
[2016-06-25 07:06] VITALS: BP 160/74; PULSE 59; O2SAT 91
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
[2016-06-25 08:00] VITALS: O2SAT 95
[2016-06-25 08:11] LABS: ALLEN TEST POS (POS); ARTERIAL BLD GAS O2 SATURATION 92.1 % (90-95); ARTERIAL BLOOD GAS HCO3 29 mmol/L (19-24); ARTERIAL BLOOD GAS PO2 77 mm/Hg (80-95); ARTERIAL BLOOD GAS pH 7.44 (7.35-7.45); O2 ADMINISTRATION ROOM AIR
[2016-06-25 08:35] LABS: BUN/CREATININE RATIO 49.8 (10-20); CALCIUM 8.9 mg/dl (8.5-10.1); CREATININE 0.47 mg/dl (0.60-1.20); POTASSIUM 4.4 mmol/L (3.5-5.1)
[2016-06-25 08:38] LABS: ALB/GLOB RATIO 0.3 (0.9-2)
[2016-06-25] MEDS: FIBERSOURCE HN 1000ML BAG PEG SCH ×4 (08:42→11:27)
[2016-06-25] MEDS: SODIUM CHLORIDE 0.65% NA SOLN 45 ML (OCEAN) SCH ×2 (08:45→11:32)
[2016-06-25] MEDS: POTASSIUM CHLORIDE PWD 20 MEQ PACK GT SCH (08:46)
[2016-06-25] MEDS: GABAPENTIN 250 MG/5 ML 470 ML BTL NG SCH (08:47)
[2016-06-25] MEDS: DOCUSATE SODIUM 100 MG/10 ML UDC NG SCH (08:47)
[2016-06-25] MEDS: ASPIRIN 81 MG CHEW NG SCH (08:47)
[2016-06-25] MEDS: LANSOPRAZOLE SOLUTAB 30 MG NG SCH (08:48)
[2016-06-25] MEDS: LIFITEGRAST 5% OP SCH (08:48)
[2016-06-25] MEDS: DIPYRIDAMOLE/ASPIRIN CAP PO SCH (08:49)
[2016-06-25] MEDS: CALCIUM 600MG + VIT D 400 IU TAB PO SCH (08:52)
[2016-06-25] MEDS: PENTOSAN POLYSULFATE SODIUM 100 MG PO SCH (08:55)
[2016-06-25] MEDS: ESCITALOPRAM OXALATE 20 MG TAB PO SCH (08:56)
[2016-06-25] MEDS: AMLODIPINE BESYLATE 5 MG TAB PO SCH (08:57)
[2016-06-25] MEDS: THIAMINE HCL 100 MG TAB PO SCH (08:58)
[2016-06-25] MEDS: CLOPIDOGREL BISULFATE 75 MG TAB PO SCH (08:58)
[2016-06-25] MEDS: ASCORBIC ACID 500 MG TAB PO SCH (08:59)
[2016-06-25] MEDS ORDERED: BACITRACIN/POLYMYXIN B OINT 15 GM TUBE EXT SCH (09:00)
[2016-06-25] MEDS: CHOLECALCIFEROL 1000 INTER.UNIT TAB PO SCH (09:00)
[2016-06-25] MEDS: ALLOPURINOL 100 MG TAB PO SCH (09:00)
[2016-06-25] MEDS: INSULIN GLARGINE SOLOSTAR 100 UNITS/ML 3 ML PEN SC SCH (09:04)
--- NOTE | 2016-06-25 09:35 | DIAGNOSTIC IMAGING REPORT ---
CHEST ONE VIEW PORTABLE CLINICAL HISTORY: pneumonia vs. Atelectasis LLL pain. Nausea. COMPARISON STUDY: 06/21/2016 FINDINGS: Congestive failure similar radiographically compared to the prior study. Heart is mildly enlarged. Tracheostomy tube is in good position. IMPRESSION: Congestive failure unchanged radiographically from the prior exam. Electronically signed by: Pollo Sultana M.D. 06/25/2016 9:34 AM Dictated Date/Time: 06/25/2016 9:33 AM
[2016-06-25 10:34] VITALS: BP 126/50; PULSE 59; O2SAT 94
--- NOTE | 2016-06-25 10:34 | Infectious Disease Progress Nt ---
Progress Note Date of Service Jun 25, 2016. Subjective Pt evaluation today including: conversation w/ patient, physical exam, chart review, lab review, review of studies, review of inpatient medication list Patient is feeling well this morning. She is anticipating D/C this afternoon at 2 pm. Her repeat CXR continues to show congestive failure unchanged from previous exam. She is going to be continuing her previous rotational antibiotic cycle. Creatinine was 0.47 this morning. All Other Systems: Reviewed and Negative Medications Current Inpatient Medications Medications (Trade) Dose Ordered Sig/Tasha Route Start Time Stop Time Status Last Admin Dose Admin Levalbuterol (Xopenex 1.25MG/ 3ML Neb) 1.25 mg Q4H PRN INH 05/28/16 23:00 06/27/16 22:59 Allopurinol (Zyloprim Tab) 100 mg DAILY PO 05/29/16 09:00 06/28/16 08:59 06/25/16 09:00 100 MG Ascorbic Acid (Vitamin C Tab) 500 mg BID PO 05/29/16 09:00 06/28/16 08:59 06/25/16 08:59 500 MG Dipyridamole/ Aspirin (Aggrenox 200MG/ 25MG Cap) 1 cap BID PO 05/29/16 09:00 06/28/16 08:59 06/25/16 08:49 1 CAP Calcium/Vitamin D (Caltrate Plus Tab) 1 tab BID PO 05/29/16 09:00 06/28/16 08:59 06/25/16 08:52 1 TAB Cholecalciferol (Vitamin D Tab) 1,000 inter.unit BID PO 05/29/16 09:00 06/28/16 08:59 06/25/16 09:00 1,000 INTER.UNIT Clopidogrel Bisulfate (plAVix TAB) 75 mg DAILY PO 05/29/16 09:00 06/28/16 08:59 06/25/16 08:58 75 MG Escitalopram Oxalate (Lexapro Tab) 20 mg QAM PO 05/29/16 09:00 06/28/16 08:59 06/25/16 08:56 20 MG Magnesium Chloride (Slow-Mag Tab) 64 mg BID PO 05/29/16 09:00 06/28/16 08:59 Future Hold 06/06/16 21:31 64 MG Phenazopyridine HCl (Pyridium Tab) 200 mg DAILY PRN PO 05/28/16 23:00 06/27/16 22:59 06/22/16 11:49 200 MG Artificial Tears (Artificial Tears) 2 drops BID PRN OPB 05/29/16 04:45 06/28/16 04:44 06/10/16 07:57 2 DROPS Solifenacin (Vesicare) 10 mg HS PO 05/29/16 21:00 06/28/16 20:59 06/24/16 22:22 10 MG Thiamine HCl (Vitamin B-1 Tab) 100 mg DAILY PO 05/29/16 09:00 06/28/16 08:59 06/25/16 08:58 100 MG Artificial Tears (Lacri-Lube Oph Oint) 1 appln HS OPB 05/29/16 21:00 06/28/16 20:59 06/24/16 21:00 1 APPLN Bisacodyl (Dulcolax Supp) 10 mg TuTh@0530 [place] 05/29/16 06:15 06/28/16 06:14 05/31/16 05:30 10 MG Bisacodyl (Dulcolax Supp) 10 mg SuMoWeFrSa@2330 [place] 05/30/16 23:30 06/29/16 23:29 06/23/16 23:35 10 MG Polyethylene (Miralax Powder Packet) 17 gm QPM PO 05/29/16 21:00 06/28/16 20:59 06/23/16 21:54 17 GM Sodium Chloride ([place] Nasal [place]) 2 sprays QID NA 05/30/16 21:00 06/29/16 20:59 06/25/16 08:45 2 SPRAYS Multi-Ingredient Ointment (Eucerin Unscented Cr) 0.25 appln BID PRN EXT 05/30/16 22:00 06/29/16 21:59 06/10/16 08:21 0.25 APPLN Lifitegrast (Xiidra 5% Oph Soln) 1 drop BID OP 06/06/16 21:00 07/06/16 20:59 06/25/16 08:48 1 DROP Lansoprazole (Prevacid Solutab) 30 mg BID NG 06/08/16 21:00 07/08/16 20:59 06/25/16 08:48 30 MG Aspirin (Aspirin Chew) 81 mg DAILY NG 06/09/16 09:00 07/09/16 08:59 06/25/16 08:47 81 MG Docusate Sodium (coLACE SYRUP) 100 mg BID NG 06/08/16 21:00 07/08/16 20:59 06/23/16 21:52 100 MG Acetaminophen (Tylenol Soln) 650 mg Q4H PRN PO 06/09/16 09:45 07/09/16 09:44 06/24/16 23:27 650 MG Gabapentin (Neurontin) 100 mg QAM NG 06/10/16 09:00 07/09/16 08:59 06/25/16 08:47 100 MG Gabapentin (Neurontin) 200 mg DAILY@1600 NG 06/09/16 16:00 07/08/16 15:59 06/24/16 16:27 200 MG Gabapentin (Neurontin) 600 mg HS NG 06/09/16 21:00 07/08/16 20:59 06/24/16 22:31 600 MG Miscellaneous Information (Consult Glycemic Management Pharmacy) 1 ea UD N/A 06/11/16 09:42 07/11/16 09:41 Simethicone (Mylicon Chew Tab) 80 mg Q6H PRN PO 06/11/16 23:00 07/11/16 22:59 06/11/16 23:51 80 MG Morphine Sulfate (MoRPHine SULFATE INJ) 2 mg Q30M PRN IV 06/13/16 14:45 06/27/16 14:44 06/25/16 02:56 2 MG Heparin Sodium (Porcine) (Heparin 100 Unit/ml 5ml Flush) 5 ml PRN PRN IV 06/14/16 17:00 07/14/16 16:59 06/14/16 19:17 5 ML Pentosan Polysulfate Sodium (Elmiron) 100 mg BID PO 06/14/16 21:00 07/14/16 20:59 06/25/16 08:55 100 MG Enteral Nutritional Formula (Prosource No Carb) 30 ml DAILY@1200 PEG 06/15/16 12:00 07/15/16 11:59 06/24/16 11:55 30 ML Magnesium Oxide (Mag-Ox Tab) 400 mg HS PRN PO 06/15/16 18:00 07/15/16 17:59 06/17/16 15:38 400 MG Hydrochlorothiazide (Hydrochlorothiazide Tab) 50 mg QAM PO 06/18/16 09:00 07/18/16 08:59 Future Hold Amlodipine Besylate (Norvasc Tab) 5 mg DAILY PO 06/18/16 09:00 07/18/16 08:59 06/25/16 08:57 5 MG Insulin Human Regular (novoLIN-R) SLIDING SCALE DAILY@0000 SC 06/19/16 00:00 07/19/16 00:00 06/25/16 01:22 1 UNITS Lorazepam (Ativan Tab) 0.5 mg Q8H PRN PO 06/18/16 17:45 07/18/16 17:44 06/20/16 09:19 0.5 MG Buspirone HCl (Buspar Tab) 10 mg BID PO 06/18/16 21:00 07/18/16 20:59 06/25/16 08:52 10 MG Insulin Glargine (Lantus Solostar Pen) QAM SC 06/20/16 09:00 07/20/16 08:59 06/25/16 09:04 5 UNIT Potassium Chloride (Klor-Con Pwd) 20 meq BID GT 06/20/16 09:00 07/20/16 08:59 06/25/16 08:46 20 MEQ Ipratropium [place] (Atrovent Hfa Inhaler) 4 puffs Q6R INH 06/21/16 03:00 07/21/16 02:59 06/25/16 07:04 4 PUFFS Albuterol (Ventolin Hfa Inhaler) 4 puffs Q6R INH 06/21/16 03:00 07/21/16 02:59 06/25/16 07:04 4 PUFFS Ondansetron HCl (Zofran Inj) 4 mg Q4H PRN IV 06/21/16 08:45 07/21/16 08:44 06/24/16 17:47 4 MG Enteral Nutritional Formula (Fibersource HN) 340 ml 4XDQ4H PEG 06/24/16 15:00 07/24/16 14:59 06/25/16 08:42 340 ML Sterile Water (Tube Feeding Water Flush) 1 ea 4XDQ4H PEG 06/24/16 15:00 07/24/16 14:59 06/25/16 07:00 1 EA Sterile Water (Tube Feeding Water Flush) 1 ea QID@0900,1300,1700,2100 PEG 06/24/16 17:00 07/24/16 16:59 06/25/16 08:48 1 EA Insulin Human Regular (novoLIN-R) SLIDING SCALE 4XDQ4H SC 06/24/16 15:00 07/24/16 14:59 06/25/16 08:45 11 UNITS Diphenoxylate HCl/ Atropine (Lomotil Liquid) 5 ml QID PRN PO 06/24/16 15:15 07/24/16 15:14 06/24/16 16:39 5 ML Bacitracin/ Polymyxin B Sulfate (Polysporin Oint) 1 appln TID EXT 06/25/16 09:00 07/25/16 08:59 06/25/16 08:45 1 APPLN Objective Vital Signs Date Time Temp Pulse Resp B/P Pulse Ox O2 Delivery O2 Flow Rate FiO2 06/25/16 07:06 59 16 160/74 91 Mechanical Ventilator 06/25/16 04:00 Mechanical Ventilator 2.0 06/25/16 04:00 37.0 64 18 168/67 95 T-piece 2.0 06/25/16 00:00 36.4 65 18 110/39 96 T-piece 2.0 06/24/16 23:59 Mechanical Ventilator 2.0 06/24/16 20:00 Mechanical Ventilator 2.0 06/24/16 19:38 37.2 81 22 108/73 98 Mechanical Ventilator 06/24/16 16:00 Mechanical Ventilator 2.0 06/24/16 15:40 37.1 71 20 127/61 97 Mechanical Ventilator 06/24/16 12:00 Mechanical Ventilator 2.0 06/24/16 11:40 37.5 69 18 171/68 97 Mechanical Ventilator Physical Exam General Appearance: WD/WN, no apparent distress Eyes: normal inspection, sclerae normal ENT: hearing grossly normal Neck: supple, + pertinent finding (tracheostomy ) Respiratory/Chest: no respiratory distress, no accessory muscle use, + pertinent finding (some very mild coarse breath sounds heard throughout lungs especially on left side. Ventilated.) Cardiovascular: regular rate, rhythm Abdomen: + distended (slightly) Extremities: + pertinent finding (quadriplegic) Neurologic/Psychiatric: alert, normal mood/affect Skin: normal color, warm/dry Laboratory Results CHEST ONE VIEW PORTABLE CLINICAL HISTORY: pneumonia vs. Atelectasis LLL pain. Nausea. COMPARISON STUDY: 06/21/2016 FINDINGS: Congestive failure similar radiographically compared to the prior study. Heart is mildly enlarged. Tracheostomy tube is in good position. IMPRESSION: Congestive failure unchanged radiographically from the prior exam. Last 24 Hours Test 06/24/16 11:53 06/24/16 16:31 06/24/16 19:51 06/25/16 01:09 Bedside Glucose 175 mg/dl 228 mg/dl 240 mg/dl 174 mg/dl Test 06/25/16 07:00 06/25/16 08:00 Bedside Glucose 139 mg/dl Arterial Blood pH 7.44 Arterial Blood Partial Pressure CO2 44 mmHg Arterial Blood Partial Pressure O2 77 mm/Hg Arterial Blood HCO3 29 mmol/L Arterial Blood Oxygen Saturation 92.1 % Arterial Blood Base Excess 4.0 mEq/L Arterial Blood Gas Delivery ROOM AIR Yogesh Test POS Sodium Level 141 mmol/L Potassium Level 4.4 mmol/L Chloride Level 106 mmol/L Carbon Dioxide Level 26 mmol/L Anion Gap 9.0 mmol/L Blood Urea Nitrogen 23 mg/dl Creatinine 0.47 mg/dl Est Creatinine Clear Calc Drug Dose 98.1 ml/min Estimated GFR () 116.8 Estimated GFR (Non- 100.8 BUN/Creatinine Ratio 49.8 Random Glucose 157 mg/dl Calcium Level 8.9 mg/dl Total Bilirubin 0.2 mg/dl Aspartate Amino Transf (AST/SGOT) 14 U/L Alanine Aminotransferase (ALT/SGPT) 19 U/L Alkaline Phosphatase 130 U/L Total Protein 7.7 gm/dl Albumin 1.9 gm/dl Globulin 5.8 gm/dl Albumin/Globulin Ratio 0.3 Assessment and Plan (1) Quadriplegia Status: Chronic Onset: 10/23/2010 Patient with history of recurrent UTI's and pneumonia with respiratory failure, now with Non-Merari albicans yeast UTI. She completed Amphotericin bladder irrigations. She will resume her previous rotational antibiotics with IV Meropenem x 1 month and PO Levaquin x 1 month. She does have continued risk of recurrent yeast UTI if she continues this regimen, but she did have many bacterial UTI's prior to initiate of current at home therapy. Therefore, will continue previous regimen upon discharge. She is OK for D/C from ID perspective. Will follow up as outpatient. Case reviewed and agree with above assessment.
[2016-06-25] MEDS: PROSOURCE NOCARB 30ML/PKT PEG SCH (11:32)
--- NOTE | 2016-06-25 11:46 | Discharge Instructions ---
Discharge Instructions Date of Service Jun 25, 2016. Admission Reason for Admission: Aspiration Pneumonia,Hyperkalemia Discharge Discharge Diagnosis / Problem: aspiration pneumonia Discharge Goals Goal(s): Decrease discomfort, Improve function Activity Recommendations Activity Limitations: resume your previous activity . Instructions / Follow-Up Instructions / Follow-Up Acute on chronic respiratory failure - - Continue Home vent settings with 2 L of Oxygen - Continue Atrovent every 6 hours and Albuterol 4 puffs every 6 hours - Follow up with Dr. Luther on July 09 Nutrition: PEG tube was placed on 06/13 - Continue tube feeds as per below: Fibersource HN, 340 ml bolus 4x/day to run over 2 hours (pt is tolerating 2 hr infusion rate better than 1 hr) Providing 1360 ml tv, 1632 kcal, and 1099 ml free water. With additional packet of nocarb prosource, total = 1692 kcal & 88 gm protein. Provide an additional free water flush of 30 ml before and after each bolus. Additional free water bolus can be decreased to 90 ml Q4 hours due to increase in free water provided via tube feeding. If diarrhea persists, consider discontinuing nocarb prosource. - Continue insulin sliding scale with goal range between 120-160, correction factor of 13 and Carb ratio of 1:5 Chronic Staples catheter and catheter associated UTIs - Continue cycling Levaquin PO for 1 month and meropenem IV for a month along with Gentamicin bladder irrigations. - Follow up with Infectious disease in 2 weeks\\ - Indwelling Staples catheter - change every two weeks Right buttock decubitus ulcer: - Please follow up with wound care Hypertension: Continue amlodipine. H/o Stroke: continue aspirin, Aggrenox and Plavix - Continue home bowel regimen if diarrhea resolved. - continue other home medications as earlier Please Follow up with 's office as scheduled Follow up with infectious disease in 2 weeks Follow up with Wound care for the right buttock ulcer Current Hospital Diet Discharge Diet Recommended Diet: N/A (PEG tube feeds) Pending Studies Studies pending at discharge: no Laboratory Results Hemoglobin A1c Test 05/29/16 06:45 Range/Units Estimated Average Glucose 126 mg/dl Hemoglobin A1c 6.0 H 4.5-5.6 % Medical Emergencies . Who to Call and When: Medical Emergencies: If at any time you feel your situation is an emergency, please call 911 immediately. . Non-Emergent Contact Non-Emergency issues call your: Primary Care Provider, Inpatient Coder . . "Provider Documentation" section prepared by Estela Barrow. VTE Core Measure Inpt VTE Proph given/why not?: Unfractionated heparin SQ
[2016-06-25 12:00] VITALS: O2SAT 95
[2016-06-25] MEDS ORDERED: FIBERSOURCE HN 1000ML BAG PO ONE ×2 (14:04)
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
--- NOTE | 2016-06-29 17:01 | CONSULTATION REPORT ---
DATE OF CONSULTATION: 06/14/2016 REASON FOR CONSULTATION: Evaluate the trach for possible cuff leak. I will defer you to patient's hospital documentation for her past medical history, her current history and physical and details of her critical care management. In summary, she is currently in the ICU, ventilated and there is a concern the respiratory has that she has a cuff leak around her existing trach, and so Dr. Hernandez asked me to further evaluate. I know Florence very well. I have been changing her trachs on a routine basis for a number of years now and I most recently changed her trach just about a month ago. She has a #6 Shiley fenestrated trach, and because of her prolonged intubation she has known history of chondromalacia of the tracheal cartilage and her current trach seems to be doing the best for her as compared to all the other specialized trachs we have utilized in the past. On my current examination, she is resting comfortably in the ICU on full vent settings. Currently, there is not trach leak. The trach is in a good position and the cuff is inflated. I would advise again changing her tracheostomy at this point. Her current tube is a fresh one. Because of her tracheomalacia, she probably requires a bit more air in her cuff than normally would be expected to gain an adequate heal and she often keeps her cuff underinflated to faciliate speech when she is not requiring these advanced vent settings. At this point, I would continue her current management. I will certainly follow along and I am available to further intervene on her tracheostomy tube as it might be required, but overall I think it is being managed quite well as it currently is. Thank you for involving me in her care.
[2016-07-20] MEDS ORDERED: ERTA1INJ IV (01:31)
[2016-08-10] MEDS ORDERED: SULF1SUS4 PEG (14:24)
[2016-08-10] MEDS ORDERED: LRS10 PO (14:24)
[2016-08-10] MEDS ORDERED: LCTX PEG (14:43)
[2016-08-10] MEDS ORDERED: GABA1SOL4 PEG ×2 (14:43)
[2016-08-10] MEDS ORDERED: [UNRECOGNIZED DRUG - CODE] PEG (14:43)
[2016-08-10] MEDS ORDERED: LMC25 PEG (14:43)
[2016-08-10] MEDS ORDERED: KPPSUDL500 PO (14:43)
[2016-08-14] MEDS ORDERED: INVI1 IV (15:05)
[2016-10-08] MEDS ORDERED: AGGRENOX PEG (17:02)
[2016-10-08] MEDS ORDERED: BACL10TA PEG (17:06)
[2016-10-08] MEDS ORDERED: LEVO-17 GT (17:29)
[2016-10-08] MEDS ORDERED: LEVE100S10 PEG (17:34)
[2016-10-08] MEDS ORDERED: LEXAPRO PEG (17:38)
[2016-10-08] MEDS ORDERED: MELA1CAP PO (17:59)
[2016-10-08] MEDS ORDERED: METH1INJ SQ (18:05)
[2016-10-10] MEDS ORDERED: LEVO1TAB35 PO (14:08)
[2016-11-08] MEDS ORDERED: LAMO200T38 PO (14:36)
[2016-11-22] MEDS ORDERED: PHEN-876 PEG (14:51)
[2016-11-22] MEDS ORDERED: LEVO-17 PEG (14:51)
[2016-11-22] MEDS ORDERED: BISA10SU7 PR (14:51)
[2016-11-22] MEDS ORDERED: CLOP1TAB15 PEG (14:51)
[2016-11-22] MEDS ORDERED: LAMO200T38 PEG (14:51)
[2016-11-22] MEDS ORDERED: LIFI5DRO OP (14:51)
[2016-11-22] MEDS ORDERED: [UNRECOGNIZED DRUG - CODE] PEG (14:51)
[2016-11-22] MEDS ORDERED: VNTHFA/IN INH (14:51)
[2016-11-22] MEDS ORDERED: POLYSOL4 OP (14:51)
[2016-11-22] MEDS ORDERED: CHOL1TAB46 PEG (14:51)
[2016-11-22] MEDS ORDERED: AGG PEG (14:51)
[2016-11-22] MEDS ORDERED: ESCI1TAB10 PEG (14:51)
[2016-11-22] MEDS ORDERED: GABA1SOL4 PEG ×3 (14:51)
[2016-11-22] MEDS ORDERED: MELA1TAB4 PEG (14:51)
[2016-11-22] MEDS ORDERED: LDDP5 TOP (14:51)
[2016-11-22] MEDS ORDERED: FLUC100T4 PEG (14:51)
[2016-11-22] MEDS ORDERED: PENT100C6 PEG (14:51)
[2016-11-22] MEDS ORDERED: NUTRLIQ14 PEG (14:51)
[2016-11-22] MEDS ORDERED: ERTA1INJ IV (14:51)
[2016-11-22] MEDS ORDERED: METH1INJ SC (14:51)
[2016-11-22] MEDS ORDERED: ALL100 PEG (14:51)
[2016-11-22] MEDS ORDERED: BUSP1TAB46 PEG (14:51)
[2016-11-22] MEDS ORDERED: ONDA4TAB46 PEG (14:51)
[2016-11-22] MEDS ORDERED: LORA-741 PEG (14:51)
[2016-11-22] MEDS ORDERED: ACET-1256 PEG (14:51)
[2016-11-22] MEDS ORDERED: PROB1TAB16 PEG (14:51)
[2016-11-22] MEDS ORDERED: POLY335019 PEG (14:51)
[2016-11-22] MEDS ORDERED: LAMO150T32 PEG (14:51)
[2016-11-22] MEDS ORDERED: NVLG (14:51)
[2016-11-22] MEDS ORDERED: INSDGI SC (14:51)
[2016-11-22] MEDS ORDERED: AMLO-110 PEG (14:51)
[2016-11-22] MEDS ORDERED: MEDR2.5T GT (15:00)
[2016-11-28] MEDS ORDERED: SRQ25 PO (09:53)
== END 2016-06-25 14:05 | disposition home health service (06) | DRG 163 ==
LOC: ENRESERVTM → ENRESERVDT → EDBD 19:04 → C.EDB 19:05 → C.MSICU 22:59 → C.2E 06-19 18:02
PROVIDERS: ADMIT Internal Medicine; ATTEND Family Medicine
PROC: 5A1955Z Respiratory Ventilation, Greater than 96 Consecutive Hours (ICD-10-PCS; 2016-05-28)
PROC: 0BCD8ZZ Extirpation of Matter from Right Middle Lung Lobe, Via Natural or Artificial Opening Endoscopic (ICD-10-PCS; principal; 2016-06-04)
PROC: 0BCF8ZZ Extirpation of Matter from Right Lower Lung Lobe, Via Natural or Artificial Opening Endoscopic (ICD-10-PCS; principal; 2016-06-04)
PROC: 0BCJ8ZZ Extirpation of Matter from Left Lower Lung Lobe, Via Natural or Artificial Opening Endoscopic (ICD-10-PCS; principal; 2016-06-04)
PROC: 0B9F8ZX Drainage of Right Lower Lung Lobe, Via Natural or Artificial Opening Endoscopic, Diagnostic (ICD-10-PCS; principal; 2016-06-04)
PROC: 0DH63UZ Insertion of Feeding Device into Stomach, Percutaneous Approach (ICD-10-PCS; 2016-06-13)
DX: J69.0 Pneumonitis due to inhalation of food and vomit (principal); J96.21 Acute and chronic respiratory failure with hypoxia; G82.51 Quadriplegia, C1-C4 complete; Z99.11 Dependence on respirator [ventilator] status; J98.11 Atelectasis; E87.2 Acidosis; B37.81 Candidal esophagitis; N17.9 Acute kidney failure, unspecified; G93.41 Metabolic encephalopathy; E46 Unspecified protein-calorie malnutrition; E87.0 Hyperosmolality and hypernatremia; B37.49 Other urogenital candidiasis; S14.103S Unspecified injury at C3 level of cervical spinal cord, sequela; E87.5 Hyperkalemia; J44.9 Chronic obstructive pulmonary disease, unspecified; Z99.3 Dependence on wheelchair; E11.9 Type 2 diabetes mellitus without complications; Z79.4 Long term (current) use of insulin; Z87.440 Personal history of urinary (tract) infections; J32.9 Chronic sinusitis, unspecified; I25.10 Atherosclerotic heart disease of native coronary artery without angina pectoris; I25.2 Old myocardial infarction; Z88.0 Allergy status to penicillin; V89.2XXS Person injured in unspecified motor-vehicle accident, traffic, sequela; J01.90 Acute sinusitis, unspecified; Z88.2 Allergy status to sulfonamides; I27.2 Other secondary pulmonary hypertension; I10 Essential (primary) hypertension; Z93.0 Tracheostomy status; R13.10 Dysphagia, unspecified; J15.6 Pneumonia due to other Gram-negative bacteria; E83.51 Hypocalcemia; S12.29 Other fracture of third cervical vertebra; Z86.73 Personal history of transient ischemic attack (TIA), and cerebral infarction without residual deficits

== ENCOUNTER → 2016-07-05 | Outpatient (CLI) | payer OTHER ==
[~2016-07-05] MED LIST changes: +ACET-1256 PEG; +AGGRENOX PEG; +ALL100 PEG; +AMLO-110 PEG; +BACL10TA PEG; +BISA10SU5 PR; +BISA10SU7 PR; +BUSP1TAB46 PEG; +CHOL1TAB46 PEG; +DLCS PR; +ERTA1INJ IV; +ESCI1TAB10 PEG; +GABA1SOL4 PEG; +GENT0.1C2 FLUSH; +HYPO0.01 TOP; +INSDGI SC; +INVI1 IV; +IPRASOL4 INH; +KPP250 PEG; +KPPSUDL500 PO; +LAMO150T32 PEG; +LAMO200T38 PEG; +LAMO200T38 PO; +LAMO25TA PEG; +LCTX PEG; +LDDP5 TOP; +LEVE100S10 PEG; +LEVE250T PEG; +LEVO-17 GT; +LEVO-17 PEG; +LEVO1TAB35 PO; +LEXAPRO PEG; +LIFI5DRO; +LIFI5DRO OP; +LMC25 PEG; +LORA-741 PO; +LRS10 PO; +MEDR2.5T GT; +MELA1CAP PO; +MELA1TAB4 PEG; +MELA1TAB5 PO; +METH-1305 PO; +METH1INJ SC; -METH1TAB5 PO; +NUTRLIQ14 PEG; +NVLG; +ONDA4TAB46 PEG; +ONDA4TAB65 PEG; +PHEN-876 GT; +POLYSOL4 OP; +PROB1TAB16 PEG; +PROP1SOL OPB; +SLWMEC PO; +SRQ25 PO; +SULF1SUS4 PEG; -SULF800T23 PO; +VNTHFA/IN INH; +[UNRECOGNIZED DRUG - CODE] PEG; +[UNRECOGNIZED DRUG - CODE] PEG
[2016-07-05 13:39] LABS: BLOOD UREA NITROGEN 70 mg/dl (7-18); BUN/CREATININE RATIO 75.6 (10-20); CALCIUM 9.8 mg/dl (8.5-10.1); CARBON DIOXIDE 27 mmol/L (21-32); CHLORIDE 100 mmol/L (98-107); CREATININE 0.93 mg/dl (0.60-1.20); GLUCOSE 220 mg/dl (70-99); MAGNESIUM 2.6 mg/dl (1.8-2.4); POTASSIUM 4.4 mmol/L (3.5-5.1); SODIUM 135 mmol/L (136-145)
== END | disposition home or self-care (01) ==
LOC: C.LABSPEC 12:44
PROVIDERS: ATTEND Internal Medicine Critical Care Medicine
DX: E11.9 Type 2 diabetes mellitus without complications (principal); Z99.2 Dependence on renal dialysis

== ENCOUNTER → 2016-07-20 | Outpatient (CLI) | payer OTHER ==
[2016-07-20 10:13] LABS: HEMATOCRIT 41.3 % (37-47); MEAN CELL VOLUME 93.4 fL (80-100); MEAN CORPUSCULAR HEMOGLOBIN 30.1 pg (25-34); MEAN CORPUSCULAR HGB CONC 32.2 g/dl (32-36); MEAN PLATELET VOLUME 9.1 fL (7.4-10.4); PLATELET COUNT 262 K/uL (130-400); RED BLOOD COUNT 4.42 M/uL (4.2-5.4); WHITE BLOOD COUNT 8.23 K/uL (4.8-10.8)
[2016-07-20 10:20] LABS: ALT/SGPT 31 U/L (12-78); BLOOD UREA NITROGEN 41 mg/dl (7-18); BUN/CREATININE RATIO 53.5 (10-20); CALCIUM 9.1 mg/dl (8.5-10.1); CARBON DIOXIDE 27 mmol/L (21-32); CHLORIDE 97 mmol/L (98-107); CREATININE 0.77 mg/dl (0.60-1.20); GLUCOSE 192 mg/dl (70-99); POTASSIUM 4.2 mmol/L (3.5-5.1); SODIUM 133 mmol/L (136-145)
[2016-07-20 10:23] LABS: ALB/GLOB RATIO 0.4 (0.9-2); ALKALINE PHOSPHATASE 148 U/L (45-117); AST/SGOT 27 U/L (15-37)
[2016-07-20 11:42] LABS: ANISOCYTOSIS PRESENT; BASO % 0.5 %; BASO ABS # 0.04 K/uL (0-0.2); COMPLETE YES; EOS % 2.7 %; IG% 0.4 %; LYMPH % 50.5 %; LYMPH ABS # 4.16 K/uL (1.2-3.4); MONO % 7.2 %; NEUT % 38.7 %
== END | disposition home or self-care (01) ==
LOC: C.LABSPEC 10:01
PROVIDERS: ATTEND Internal Medicine Infectious Disease
DX: J69.0 Pneumonitis due to inhalation of food and vomit (principal)

== ENCOUNTER 2016-07-30 00:18 | Inpatient (IN) | payer OTHER ==
[2016-07-30] VITALS (15 sets, daily range): BP systolic 78–237; BP diastolic 47–114; PULSE 67–135; TEMP 36.5–37; O2SAT 91–100; BMI 29.4
[~2016-07-30] VITALS: Ht 152.4 cm; Wt 62.9 kg
[~2016-07-30 00:18] MED LIST changes: -ACET-1256 PEG; -AGGRENOX PEG; -ALL100 PEG; -AMLO-110 PEG; -BACL10TA PEG; -BISA10SU5 PR; -BISA10SU7 PR; -BUSP1TAB46 PEG; -CHOL1TAB46 PEG; -ESCI1TAB10 PEG; -GABA1SOL4 PEG; -GENT0.1C2 FLUSH; -HYPO0.01 TOP; -INSDGI SC; -INVI1 IV; -KPP250 PEG; -KPPSUDL500 PO; -LAMO150T32 PEG; -LAMO200T38 PEG; -LAMO200T38 PO; -LAMO25TA PEG; -LCTX PEG; -LDDP5 TOP; -LEVE100S10 PEG; -LEVE250T PEG; -LEVO-17 GT; -LEVO-17 PEG; -LEVO1TAB35 PO; -LEXAPRO PEG; -LIFI5DRO; -LIFI5DRO OP; -LMC25 PEG; -LORA-741 PO; -LRS10 PO; -MEDR2.5T GT; -MELA1CAP PO; -MELA1TAB4 PEG; -MELA1TAB5 PO; -METH1INJ SC; -NUTRLIQ14 PEG; -NVLG; -ONDA4TAB46 PEG; -ONDA4TAB65 PEG; -PHEN-876 GT; -POLYSOL4 OP; -PROB1TAB16 PEG; -PROP1SOL OPB; -SLWMEC PO; -SRQ25 PO; -SULF1SUS4 PEG; -VNTHFA/IN INH; -[UNRECOGNIZED DRUG - CODE] PEG; -[UNRECOGNIZED DRUG - CODE] PEG
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
[2016-07-30 00:44] LABS: BASO % 0.3 %; BASO ABS # 0.03 K/uL (0-0.2); COMPLETE YES; EOS % 1.4 %; HEMATOCRIT 37.8 % (37-47); IG% 0.5 %; LYMPH % 45.1 %; LYMPH ABS # 3.95 K/uL (1.2-3.4); MEAN CELL VOLUME 92.6 fL (80-100); MEAN CORPUSCULAR HEMOGLOBIN 28.9 pg (25-34); MEAN CORPUSCULAR HGB CONC 31.2 g/dl (32-36); MEAN PLATELET VOLUME 8.8 fL (7.4-10.4); MONO % 7.8 %; NEUT % 44.9 %; PLATELET COUNT 230 K/uL (130-400); RED BLOOD COUNT 4.08 M/uL (4.2-5.4); WHITE BLOOD COUNT 8.75 K/uL (4.8-10.8)
[2016-07-30 00:54] LABS: PARTIAL THROMBOPLASTIN RATIO 1.2; PROTHROMBIN TIME (PATIENT) 11.1 SECONDS (9.0-12.0)
[2016-07-30 00:56] LABS: URINE APPEARANCE TURBID (CLEAR); URINE BILIRUBIN NEG (NEG); URINE COLOR YELLOW; URINE NITRITE NEG (NEG); URINE SPECIFIC GRAVITY 1.011 (1.000-1.030); UROBILINOGEN NEG (NEG); ZZURINE CULT IF INDIC CATH YES
[2016-07-30] MEDS ORDERED: SLWMEC PO (00:56)
[2016-07-30 01:02] LABS: ALT/SGPT 32 U/L (12-78); AST/SGOT 27 U/L (15-37); BLOOD UREA NITROGEN 28 mg/dl (7-18); BUN/CREATININE RATIO 46.7 (10-20); CALCIUM 8.6 mg/dl (8.5-10.1); CARBON DIOXIDE 30 mmol/L (21-32); CHLORIDE 95 mmol/L (98-107); CREATININE 0.59 mg/dl (0.60-1.20); GLUCOSE 206 mg/dl (70-99); MAGNESIUM 2.1 mg/dl (1.8-2.4); POTASSIUM 4.2 mmol/L (3.5-5.1); SODIUM 134 mmol/L (136-145)
[2016-07-30 01:05] LABS: MANUAL MICROSCOPIC REQUIRED? NO; REVIEW REQ? YES
[2016-07-30 01:07] LABS: ALKALINE PHOSPHATASE 162 U/L (45-117); PHOSPHORUS 3.4 mg/dl (2.5-4.9)
[2016-07-30] MEDS ORDERED: ERTAPENEM 1 GM ADDVIAL IV ONE (01:30)
[2016-07-30] MEDS ORDERED: VNTHFA/IN INH (01:30)
[2016-07-30] MEDS ORDERED: HYPO0.01 TOP (01:30)
[2016-07-30] MEDS ORDERED: PROP1SOL OPB (01:32)
[2016-07-30] MEDS ORDERED: ONDA4TAB65 PEG (01:33)
[2016-07-30] MEDS ORDERED: NUTRLIQ14 PEG (01:34)
[2016-07-30] MEDS ORDERED: INSDGI SC (01:35)
[2016-07-30] MEDS ORDERED: BISA10SU5 PR (01:36)
[2016-07-30] MEDS ORDERED: ALUMINUM/MAGNESIUM/SIMETH (MAALOX MAX) 30 ML UDC PO PRN (02:15)
[2016-07-30] MEDS ORDERED: PHENAZOPYRIDINE HCL 200 MG TAB PO PRN (02:15)
[2016-07-30] MEDS ORDERED: ACETAMINOPHEN 325 MG TAB PO PRN (02:15)
[2016-07-30] MEDS ORDERED: MAGNESIUM HYDROXIDE SUSP 30 ML UDC PO PRN (02:15)
[2016-07-30] MEDS ORDERED: LORAZEPAM 0.5 MG TAB PO PRN (02:15)
[2016-07-30] MEDS ORDERED: POLYETHYLENE (MIRALAX) 17 GM PACK PO PRN (02:15)
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
[2016-07-30] MEDS ORDERED: IV FLUIDS COMPLETED PRN (03:15)
[2016-07-30] MEDS ORDERED: GLUCOSE 10 TABS/TUBE PO PRN (03:30)
[2016-07-30] MEDS ORDERED: GLUCAGON FOR INJ 1 MG VIAL SQ PRN (03:30)
[2016-07-30] MEDS ORDERED: GLUCOSE 40% GEL 15 GM TUBE PO PRN (03:30)
[2016-07-30] MEDS ORDERED: DEXTROSE 50% 50 ML SYR IV PRN (03:30)
[2016-07-30] MEDS ORDERED: LEVETIRACETAM IV 1,000 MG in DEXTROSE 5% 100ML 100 ML IV ONE (03:45)
[2016-07-30] MEDS: SYSTANE~ORDER AWAITING ACTION SCH ×3 (05:45→16:00)
[2016-07-30] MEDS: HEPARIN SOD 5000 UNIT/0.5 ML CARP SQ SCH ×3 (06:15→21:35)
--- NOTE | 2016-07-30 06:50 | DIAGNOSTIC IMAGING REPORT ---
CHEST ONE VIEW PORTABLE CLINICAL HISTORY: AMS dyspnea COMPARISON STUDY: 06/25/2016 FINDINGS: Mild stable cardiomegaly. Improved aeration left base compared to the prior exam. Tracheostomy tube in good position. Central catheter superior vena cava. IMPRESSION: No acute process. Electronically signed by: Pollo Sultana M.D. 07/30/2016 6:48 AM Dictated Date/Time: 07/30/2016 6:46 AM
--- NOTE | 2016-07-30 07:12 | DIAGNOSTIC IMAGING REPORT ---
HEAD CT NONCONTRAST CT DOSE: 614.27 mGy.cm HISTORY: Altered mental status. TECHNIQUE: Multiaxial CT images of the head were performed without the use of intravenous contrast. Automated exposure control was utilized for this study. Comparison: Head CT 06/08/2016. Findings: Trace fluid within the right maxillary sinus and opacified left frontal and left anterior ethmoid air cells. The mastoid air cells are clear. 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 Microvascular ischemic changes are again noted. There is no mass, hematoma, midline shift, acute infarct. Impression: No significant change compared to the prior study. No acute intracranial abnormality. Old infarcts are again noted. Electronically signed by: Iban Hoffman M.D. 07/30/2016 7:10 AM Dictated Date/Time: 07/30/2016 7:08 AM
[2016-07-30] MEDS: INSULIN ASPART 100 UNITS/ML 3 ML PEN SC SCH ×4 (08:30→23:50)
[2016-07-30] MEDS ORDERED: ALLOPURINOL 100 MG TAB PO SCH (09:00)
[2016-07-30] MEDS ORDERED: GABAPENTIN 100 MG CAP PO SCH ×2 (09:00→16:00)
[2016-07-30] MEDS ORDERED: PENTOSAN POLYSULFATE SODIUM 100 MG CAP PO SCH (09:00)
[2016-07-30] MEDS ORDERED: AMLODIPINE BESYLATE 5 MG TAB PO SCH (09:00)
[2016-07-30] MEDS ORDERED: CLOPIDOGREL BISULFATE 75 MG TAB PO SCH (09:00)
[2016-07-30] MEDS ORDERED: ESCITALOPRAM OXALATE 20 MG TAB PO SCH (09:00)
[2016-07-30] MEDS ORDERED: ERTAPENEM 1 GM ADDVIAL IV SCH (09:00)
[2016-07-30] MEDS ORDERED: BusPIRone 15 MG TAB PO SCH (09:00)
[2016-07-30] MEDS ORDERED: BOOST PLUS VANILLA PO SCH ×4 (09:00→11:15)
[2016-07-30] MEDS ORDERED: ASPIRIN 81 MG ECTAB PO SCH (09:00)
[2016-07-30] MEDS ORDERED: LIDODERM (LIDOCAINE) PATCH 5% TD SCH (09:00)
[2016-07-30] MEDS: DIPYRIDAMOLE/ASPIRIN CAP PO SCH ×2 (09:18→21:29)
[2016-07-30] MEDS: LACTOBACILLUS ACIDOPHILUS (FLORANEX) TAB PO SCH ×2 (09:19→12:02)
[2016-07-30] MEDS ORDERED: NURSING VERBAL MED ORDER ONE ×3 (09:45→17:30)
[2016-07-30] MEDS ORDERED: ASPIRIN 81 MG CHEW PO SCH (10:00)
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
--- NOTE | 2016-07-30 14:49 | DIAGNOSTIC IMAGING REPORT ---
MRI OF THE BRAIN WITHOUT AND WITH IV CONTRAST SEIZURE PROTOCOL CLINICAL HISTORY: seizure activity. Has pain [id number] but has had MRIs since. Seizures COMPARISON STUDY: CT brain dated 07/30/2006. MRI brain dated 11/09/2013 TECHNIQUE: Utilizing a 1.5 Jolene magnet and dedicated coil, multiplanar, multiecho imaging of the brain was performed pre and postcontrast administration. IV administration of 8.4 mL of Gadavist contrast was uneventful. Thin cut coronal T2 imaging was performed according to seizure protocol. FINDINGS: Diffusion-weighted images show no evidence for an acute ischemic focus. There are findings of old infarcts involving the occipital regions on the right and to lesser extent left. There is a small venous angioma of the left posterior pleural occipital region shows partial postcontrast enhancement. No additional enhancing foci are identified. Basal cisterns are within normal limits. Internal artery canals are symmetric. Sella and parasellar regions are unremarkable. IMPRESSION: 1. 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 2. Small venous angioma left occipital lobe 3. Mild chronic small vessel change. 4. No evidence for an acute ischemic process. Electronically signed by: Pollo Sultana M.D. 07/30/2016 2:47 PM Dictated Date/Time: 07/30/2016 2:41 PM
[2016-07-30] MEDS ORDERED: CONSULT PHARMACY STA (15:23)
--- NOTE | 2016-07-30 15:42 | Progress Note ---
Subjective Date of Service: Jul 30, 2016. Subjective CODE PURPLE, called after return from MRI< pt had bradycardia and respiratory arrest, pt became unresponsive, difficult to bag initially via trache and bag mask ventilation undertaken attempts to bag via trache undertaken , trache balloon was deflated, 10 ml of air applied, ventilation was achieved, chlorometric change was confirmed Pt became more awake, tachycardic and maintained saturations transferred to ICU, placed on ICU vent( taken off home vent at initiation of code purple) after bagging from some time Pt is awake sedate( did receive Ativan after return from MRI), is ventilated and now with tachcardia will continue plan of care as before with additional ventilator support and trache suctioning 'MRI of brain with no significant findings Problem List Medical Problems: (1) Acute renal failure Status: Acute (2) Altered mental status Status: Acute (3) Dehydration Status: Acute (4) Elevated troponin Status: Acute (5) Hypotension Status: Acute (6) Seizure Status: Acute (7) Sepsis Status: Acute (8) Urinary tract infection Status: Acute (9) UTI (urinary tract infection) Status: Acute Review of Systems lethargy prevents ROS Objective Vital Signs Date Time Temp Pulse Resp B/P Pulse Ox O2 Delivery O2 Flow Rate FiO2 07/30/16 12:00 Mechanical Ventilator 2.0 07/30/16 11:44 36.6 79 20 162/79 100 Mechanical Ventilator 07/30/16 08:00 Mechanical Ventilator 2.0 07/30/16 07:00 36.5 67 20 155/77 100 Mechanical Ventilator 07/30/16 05:08 36.5 68 22 163/70 99 Mechanical Ventilator 2.0 07/30/16 03:48 69 16 133/69 98 Mechanical Ventilator 07/30/16 02:30 71 20 135/70 100 Room Air 07/30/16 02:00 69 20 156/69 98 Room Air 07/30/16 01:30 65 20 157/87 98 Room Air 07/30/16 00:38 36.6 78 26 129/102 97 Mechanical Ventilator 07/30/16 00:23 78 Physical Exam General Appearance: WD/WN, + severe distress Neck: supple Respiratory/Chest: + respiratory distress, + decreased breath sounds Cardiovascular: no murmur, + tachycardia Abdomen: soft, + abnormal bowel sounds Extremities: + pedal edema Laboratory Results Last 24 Hours Test 07/30/16 00:25 07/30/16 00:35 07/30/16 07:33 07/30/16 11:46 Urine Color YELLOW Urine Appearance TURBID Urine pH 7.0 Urine Specific [place] 1.011 Urine Protein 1+ Urine Glucose (UA) TRACE Urine Ketones NEG Urine Occult Blood 1+ Urine Nitrite NEG Urine Bilirubin NEG Urine Urobilinogen NEG Urine Leukocyte Esterase LARGE Urine WBC (Auto) >30 /hpf Urine RBC (Auto) 0-4 /hpf Urine Hyaline Casts (Auto) 5-10 /lpf Urine Epithelial Cells (Auto) 10-20 /lpf Urine Bacteria (Auto) 2+ White Blood Count 8.75 K/uL Red Blood Count 4.08 M/uL Hemoglobin 11.8 g/dL Hematocrit 37.8 % Mean Corpuscular Volume 92.6 fL Mean Corpuscular Hemoglobin 28.9 pg Mean Corpuscular Hemoglobin Concent 31.2 g/dl Platelet Count 230 K/uL Mean Platelet Volume 8.8 fL Neutrophils (%) (Auto) 44.9 % Lymphocytes (%) (Auto) 45.1 % Monocytes (%) (Auto) 7.8 % Eosinophils (%) (Auto) 1.4 % Basophils (%) (Auto) 0.3 % Neutrophils # (Auto) 3.93 K/uL Lymphocytes # (Auto) 3.95 K/uL Monocytes # (Auto) 0.68 K/uL Eosinophils # (Auto) 0.12 K/uL Basophils # (Auto) 0.03 K/uL RDW Standard Deviation 64.7 fL RDW Coefficient of Variation 19.2 % Immature Granulocyte % (Auto) 0.5 % Immature Granulocyte # (Auto) 0.04 K/uL Nucleated RBC Absolute Count (auto) 0.02 K/uL Nucleated Red Blood Cells % 0.3 % Prothrombin Time 11.1 SECONDS Prothromb Time International Ratio 1.0 Activated Partial Thromboplast Time 30.8 SECONDS Partial Thromboplastin Ratio 1.2 Sodium Level 134 mmol/L Potassium Level 4.2 mmol/L Chloride Level 95 mmol/L Carbon Dioxide Level 30 mmol/L Anion Gap 9.0 mmol/L Blood Urea Nitrogen 28 mg/dl Creatinine 0.59 mg/dl Estimated GFR () 108.4 Estimated GFR (Non- 93.5 BUN/Creatinine Ratio 46.7 Random Glucose 206 mg/dl Calcium Level 8.6 mg/dl Phosphorus Level 3.4 mg/dl Magnesium Level 2.1 mg/dl Total Bilirubin 0.2 mg/dl Direct Bilirubin < 0.1 mg/dl Aspartate Amino Transf (AST/SGOT) 27 U/L Alanine Aminotransferase (ALT/SGPT) 32 U/L Alkaline Phosphatase 162 U/L Troponin I < 0.015 ng/ml Total Protein 8.6 gm/dl Albumin 2.4 gm/dl Bedside Glucose 175 mg/dl 144 mg/dl Test 07/30/16 15:01 Bedside Glucose 147 mg/dl Assessment and Plan 71 y/o F presents following a witnessed seizure and prolonged post-ictal state. Initiated on antiepileptic meds, initially Keppra in ER and now Lamictal started by nuerology beronica, MRI of brain without significant changes Code purple, likely from mucus plug and trache balloon being down, moved to ICU and will have on vent with peep overnight Seizure- Neurology recommended -- Lamictal 25 mg BID 1 week with increase by 25 mg weekly and Lamictal trough obtained after stabilization -- Brain MRI - not new CVA DC ASA - continue Aggrenox and Plavix Chronic UTI - Proteus: ertapenem - also receives gentamicin weekly - Diabetes Mellitus:- Lantus 15 units daily in SSI DVT Prophylaxis: Heparin 5000 units Q8H Code Status: FULL RESUSCITATION Discharge planning: home with home health (caregivers)
--- NOTE | 2016-07-30 15:46 | DIAGNOSTIC IMAGING REPORT ---
CHEST ONE VIEW PORTABLE CLINICAL HISTORY: shortness of breath dyspnea COMPARISON STUDY: 07/30/2016 FINDINGS: Slight increase in density left lung base. May consolidative left lateral lower lobe infiltrate may be present. Number vasculature is slightly prominent. There is a central catheter in superior vena cava. Tracheostomy tube is in good position. IMPRESSION: Slight increase in density and or consolidative change medial aspect left lower lobe. Electronically signed by: Pollo Sultana M.D. 07/30/2016 3:43 PM Dictated Date/Time: 07/30/2016 3:42 PM
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
[2016-07-30] MEDS ORDERED: LORAZEPAM 0.5 MG TAB PEG PRN (16:45)
[2016-07-30] MEDS ORDERED: MAGNESIUM HYDROXIDE SUSP 30 ML UDC PEG PRN (16:45)
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
[2016-07-30 17:28] LABS: ISTAT ALLEN TEST Pass; ISTAT ARTERIAL BLOOD GAS HCO3 30 meq/L (19-24); ISTAT ARTERIAL BLOOD GAS PCO2 55 mmHg (35-46); ISTAT ARTERIAL BLOOD GAS PO2 68 mmHg (80-95); ISTAT ARTERIAL BLOOD GAS pH 7.34 (7.35-7.45); ISTAT CARBON DIOXIDE 32 mEq/l (24-31); ISTAT DELIVERY SYSTEM Ventilator; ISTAT FIO2 28 %; ISTAT PEEP 0; ISTAT RATE 14; ISTAT SITE L Radial; VE 6.6; Vt 500
[2016-07-30] MEDS: GABAPENTIN 250 MG/5 ML 470 ML BTL PEG SCH ×2 (17:44→21:37)
[2016-07-30] MEDS: PROSOURCE NOCARB 30ML/PKT PEG SCH (17:45)
[2016-07-30] MEDS: LACTOBACILLUS ACIDOPHILUS (FLORANEX) TAB PEG SCH (17:45)
[2016-07-30] MEDS: TUBE FEEDING WATER FLUSH PEG SCH ×2 (17:46→21:29)
--- NOTE | 2016-07-30 20:02 | Pain Management Consultation ---
Pain Management Consultation Date of Consultation Jul 30, 2016. Reason for Consultation Evaluate intrathecal pump. History Florence Farris is 71-year-old patient with paraplegia due to spinal cord injury in the remote past. 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 She is admitted to [facility] because she experienced a seizure last night. Florence has an implanted intrathecal drug delivery system infusing intrathecal hydromorphone, bupivacaine, clonidine, and baclofen to manage her spasticity and neuropathic pain. She has been on her current dose intrathecally for a period of time with good efficacy. The seizure she experienced last night was witnessed by her spanish language lecturer where she was noted to be postictal and appeared to be a typical generalized seizure. She denies any increase in her typical neuropathic pain, or any increased spasticity and reports no significant change in her efficacy from her intrathecal infusion. Past Medical/Surgical History (1) Chronic obstructive lung disease (2) Dependence on continuous positive airway pressure ventilation (3) Respiratory failure (4) Anemia of chronic disorder (5) Abdominal pain (6) Chronic respiratory failure (7) Quadriplegia (8) Respiratory acidosis (9) Dysautonomia (10) Urinary retention (11) Chronic urinary tract infection (12) Acute renal failure (13) Dehydration (14) Elevated troponin (15) Hypotension (16) Sepsis (17) UTI (urinary tract infection) Social / Work History Smokeless Tobacco Use: No Alcohol Use: none Marital Status: Housing Status: other (Pt's 41 year old daughter lives with her, and she has 24 hour nursing care at home. 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 ) Allergies Coded Allergies: Ampicillin (Verified Allergy, Unknown, Unknown, 07/30/16) Cephalexin (Verified Allergy, Unknown, Unknown, 07/30/16) Cephalosporins (Verified Allergy, Unknown, UNKN, 07/30/16) Erythromycin (Verified Allergy, Unknown, UNKNOWN, 07/30/16) Linezolid (Verified Allergy, Unknown, UNKN, 07/30/16) Nitrofurantoin (Verified Allergy, Unknown, Unknown, 07/30/16) Penicillins (Verified Allergy, Unknown, UNKN, 07/30/16) Medications Current Inpatient Medications Medications (Trade) Dose Ordered Sig/Tasha Route Start Time Stop Time Status Last Admin Dose Admin Dipyridamole/ Aspirin (Aggrenox 200MG/ 25MG Cap) 1 cap BID PO 07/30/16 09:00 08/29/16 08:59 07/30/16 09:18 1 CAP Bisacodyl (Dulcolax Supp) 10 mg SuMoWeFr@2100 [place] 07/30/16 21:00 08/29/16 20:59 Insulin Glargine (Lantus Solostar Pen) 15 unit QPM SC 07/30/16 21:00 08/29/16 20:59 Phenazopyridine HCl (Pyridium Tab) 200 mg BID PRN PO 07/30/16 02:15 08/29/16 02:14 07/30/16 10:40 200 MG Miscellaneous Information (Order Awaiting Action) 1 ea QS N/A 07/30/16 05:30 08/29/16 05:29 Miscellaneous Information (Order Awaiting Action) 1 ea QS N/A 07/30/16 05:30 08/29/16 05:29 Miscellaneous Information (Order Awaiting Action) 1 ea QS N/A 07/30/16 05:45 08/29/16 05:44 Miscellaneous Information (Order Awaiting Action) 1 ea QS N/A 07/30/16 05:45 08/29/16 05:44 Heparin Sodium (Porcine) (Heparin Sq 5000 Unit/0.5ml) 5,000 unit Q8 SQ 07/30/16 06:00 08/29/16 05:59 07/30/16 06:15 5,000 UNIT Ondansetron HCl (Zofran Inj) 4 mg Q6H PRN IV 07/30/16 02:15 08/29/16 02:14 Miscellaneous (Iv Fluids Completed) 1 ea PRN PRN N/A 07/30/16 03:15 07/30/17 03:14 Glucose (Glucose 40% Gel) 15-30 GRAMS 15 GRAMS... UD PRN PO 07/30/16 03:30 08/29/16 03:29 Glucose (Glucose Chew Tab) 4-8 Tablets 4 Tabl... UD PRN PO 07/30/16 03:30 08/29/16 03:29 Dextrose (Dextrose 50% 50ML Syringe) 25-50ML OF 50% DW IV FOR... UD PRN IV 07/30/16 03:30 08/29/16 03:29 Glucagon 1 mg 1 mg UD PRN SQ 07/30/16 03:30 08/29/16 03:29 Ertapenem/Sodium Chloride (Invanz Iv/Nss Ad-Van 50ml) 50 ml @ 100 mls/hr Q24H IV 07/31/16 08:00 08/10/16 07:59 Bisacodyl (Dulcolax Supp) 10 mg TuTh@0530 [place] 07/31/16 05:30 08/30/16 05:29 Enteral Nutritional Formula (Prosource No Carb) 30 ml TID@0600,1200,1800 PEG 07/30/16 18:00 08/29/16 17:59 07/30/16 17:45 30 ML Albuterol (Ventolin Hfa Inhaler) 2 puffs BID INH 07/30/16 21:00 08/29/16 20:59 Lidocaine (Lidoderm Patch 5%) 2 patch DAILY@2100 TD 07/30/16 21:00 08/29/16 20:59 Miscellaneous (Remove Lidoderm Patch) 1 ea DAILY@0900 N/A 07/31/16 09:00 08/30/16 08:59 Insulin Aspart (novoLOG ASPART) SLIDING SCALE G... Q6 SC 07/30/16 18:00 08/29/16 17:59 07/30/16 17:55 1 UNITS Sterile Water (Tube Feeding Water Flush) 1 ea TID@0600,1200,1800 PEG 07/30/16 18:00 08/29/16 17:59 07/30/16 17:46 1 EA Acetaminophen (Tylenol Soln) 650 mg Q4H PRN PEG 07/30/16 18:15 08/29/16 18:14 Allopurinol (Zyloprim Tab) 100 mg DAILY PEG 07/31/16 09:00 08/30/16 08:59 Al Hydrox/Mg Hydrox/Simethicone (Maalox Max Susp) 15 ml Q4H PRN PEG 07/30/16 18:15 08/29/16 18:14 Amlodipine Besylate (Norvasc Tab) 3.75 mg DAILY PEG 07/31/16 09:00 08/30/16 08:59 Buspirone HCl (BusPAR TAB) 7.5 mg BID PEG 07/30/16 21:00 08/29/16 20:59 Clopidogrel Bisulfate (plAVix TAB) 75 mg DAILY PEG 07/31/16 09:00 08/30/16 08:59 Escitalopram Oxalate (Lexapro Oral Soln) 20 mg QAM PEG 07/31/16 09:00 08/30/16 08:59 Fluconazole (Diflucan Susp) 100 mg QPM PEG 07/30/16 21:00 08/09/16 20:59 Gabapentin (Neurontin) 100 mg QAM PEG 07/31/16 09:00 08/30/16 08:59 Gabapentin (Neurontin) 200 mg 1600 PEG 07/30/16 16:00 08/29/16 15:59 07/30/16 17:44 200 MG Lactobacillus Acidophilus (Floranex Tab) 4 tab TIDM PEG 07/30/16 16:30 08/29/16 16:29 07/30/16 17:45 4 TAB Pentosan Polysulfate Sodium (Elmiron) 100 mg BID PEG 07/30/16 21:00 08/29/16 20:59 Polyethylene (Miralax Powder Packet) 17 gm DAILY PRN PEG 07/31/16 09:00 08/30/16 08:59 Gabapentin (Neurontin) 600 mg HS PEG 07/30/16 21:00 08/29/16 20:59 Lorazepam (Ativan Tab) 0.5 mg DAILY PRN PEG 07/30/16 16:45 08/29/16 16:44 Magnesium Hydroxide (Milk Of Magnesia Susp) 30 ml Q12H PRN PEG 07/30/16 16:45 08/29/16 16:44 Lamotrigine (Lamictal Tab) 25 mg BID PEG 07/30/16 21:00 08/06/16 23:59 Lamotrigine (Lamictal Tab) 50 mg BID PEG 08/07/16 09:00 09/06/16 08:59 Non-Formulary Medication (Non-Formulary Patient'S Own Med) 1 ea TID PEG 07/30/16 21:00 08/29/16 20:59 Sterile Water (Tube Feeding Water Flush) 1 ea TID PEG 07/30/16 21:00 08/29/16 20:59 Lifitegrast (Xiidra 5% Oph Soln) 1 drop BID OP 07/30/16 21:00 08/29/16 20:59 UNV Physical Exam Height & Weight: Height 5 feet, 0.00 inches. Weight 77.300 (Kilograms) 170 (Pounds) Last Vital Signs Documentation Date Time Temp Pulse Resp B/P Pulse Ox O2 Delivery O2 Flow Rate FiO2 07/30/16 19:33 28 07/30/16 18:00 78 14 121/61 94 Mechanical Ventilator 07/30/16 16:00 36.7 07/30/16 12:00 2.0 Exam: Florence appears older than her stated age. She is laying in a semirecumbent position with the ventilator test her tracheostomy. She is awake and responds appropriately to verbal stimulation. Inspection of her abdomen demonstrates distention with tympany. Bowel sounds are hypoactive. She has a feeding tube in place in the left upper quadrant. Pump site in the right lower quadrant is unremarkable. Catheter site and then lumbar spine is unremarkable. She demonstrates placidity of the upper and lower extremities. No spasms or rigidity is noted. Intrathecal pump was interrogated and found to be delivering baclofen 327.8 g, hydromorphone is 2.082 mg, bupivacaine 2.602 mg and clonidine 52.04 g per day. She has 3.7 mL of the medication mixture in the reservoir. She is due for refill in 8 days. Low reservoir alarm date is 08/06/2016. Laboratory / Imaging Results Laboratory Results (Last CBC): 07/30/16 00:35 Red Blood Count 4.08 L, Mean Corpuscular Volume 92.6, Mean Corpuscular Hemoglobin 28.9, Mean Corpuscular Hemoglobin Concent 31.2 L, Mean Platelet Volume 8.8, Neutrophils (%) (Auto) 44.9, Lymphocytes (%) (Auto) 45.1, Monocytes (%) (Auto) 7.8, Eosinophils (%) (Auto) 1.4, Basophils (%) (Auto) 0.3, Neutrophils # (Auto) 3.93, Lymphocytes # (Auto) 3.95 H, Monocytes # (Auto) 0.68 H, Eosinophils # (Auto) 0.12, Basophils # (Auto) 0.03 Assessment 1. New onset seizures. 2. Quadriplegia with spasticity. Controlled. 3. Neuropathic pain due to spinal cord injury. 4. Status post intrathecal drug delivery system implantation with a properly functioning pump and catheter. Recommendations 1. Recommend no changes in the intrathecal drug concentration a dose to be made to the present time. Seizures unrelated to intrathecal baclofen withdrawal. 2. Patient is due for refill on 08/07/2016. Briefly for performed either as an inpatient if she is still admitted orders outpatient in the office. Once patient MRIs performed today, probably interrogated to make sure it is functioning properly after the MRI. [employer] Voice Recognition This chart was completed in part utilizing [employer] Voice Recognition Software. Random word insertions, pronoun errors, and incomplete sentences are an occasional consequence of this system due to software limitations and ambient noise. Any questions or concerns about the content, text or information contained within the body of this dictation should be directly addressed to the provider for clarification.
[2016-07-30] MEDS: ENTERAL NUTRITION FORMULA PEG SCH (20:53)
[2016-07-30] MEDS ORDERED: GABAPENTIN 250 MG/5 ML 470 ML BTL PO SCH (21:00)
[2016-07-30] MEDS ORDERED: GABAPENTIN 600 MG TAB PO SCH (21:00)
[2016-07-30] MEDS ORDERED: FLUCONAZOLE 100 MG TAB PO SCH (21:00)
[2016-07-30] MEDS: ALBUTEROL HFA 8 GM INHALER INH SCH (21:23)
[2016-07-30] MEDS: LIFITEGRAST 5% OP SCH (21:24)
[2016-07-30] MEDS: [UNRECOGNIZED DRUG - SUPPLY] OP SCH (21:24)
[2016-07-30] MEDS: FLUCONAZOLE SUSP 100 MG/10 ML UDP PEG SCH (21:25)
[2016-07-30] MEDS: BusPIRone 15 MG TAB PEG SCH (21:25)
[2016-07-30] MEDS: PENTOSAN POLYSULFATE SODIUM 100 MG CAP PEG SCH (21:26)
[2016-07-30] MEDS: LIDODERM (LIDOCAINE) PATCH 5% TD SCH (21:33)
[2016-07-30] MEDS: INSULIN GLARGINE SOLOSTAR 100 UNITS/ML 3 ML PEN SC SCH (21:34)
[2016-07-30] MEDS: BISACODYL 10 MG SUPP PR SCH (21:37)
[2016-07-31] VITALS (13 sets, daily range): BP systolic 103–187; BP diastolic 44–83; PULSE 75–107; TEMP 36.8–37.2; O2SAT 90–97
[2016-07-31] MEDS ORDERED: ALBUMIN 25% 50 ML with FUROSEMIDE INJ 40 MG IV STA ×2 (03:28)
[2016-07-31 05:27] LABS: MEAN CELL VOLUME 96.4 fL (80-100); MEAN CORPUSCULAR HEMOGLOBIN 29.9 pg (25-34); MEAN CORPUSCULAR HGB CONC 31.1 g/dl (32-36); PLATELET COUNT 235 K/uL (130-400); RED BLOOD COUNT 3.94 M/uL (4.2-5.4); WHITE BLOOD COUNT 16.26 K/uL (4.8-10.8)
[2016-07-31 05:50] LABS: BUN/CREATININE RATIO 44.7 (10-20); CALCIUM 8.5 mg/dl (8.5-10.1); CREATININE 0.82 mg/dl (0.60-1.20); MAGNESIUM 2.5 mg/dl (1.8-2.4); POTASSIUM 4.4 mmol/L (3.5-5.1)
[2016-07-31 05:56] LABS: PHOSPHORUS 5.6 mg/dl (2.5-4.9)
[2016-07-31] MEDS: BISACODYL 10 MG SUPP PR SCH (05:59)
[2016-07-31] MEDS: PROSOURCE NOCARB 30ML/PKT PEG SCH ×3 (06:00→17:40)
[2016-07-31] MEDS: TUBE FEEDING WATER FLUSH PEG SCH ×6 (06:00→20:41)
[2016-07-31] MEDS: INSULIN ASPART 100 UNITS/ML 3 ML PEN SC SCH ×4 (06:01→23:55)
[2016-07-31] MEDS: HEPARIN SOD 5000 UNIT/0.5 ML CARP SQ SCH ×3 (06:02→21:54)
--- NOTE | 2016-07-31 06:56 | DIAGNOSTIC IMAGING REPORT ---
CHEST ONE VIEW PORTABLE CLINICAL HISTORY: dropping sats dyspnea COMPARISON STUDY: 07/30/2016 FINDINGS: Slight improvement in aeration left lung base. Persistent parenchymal prominence of the mid to lower lung regions bilaterally. Persistent partial consolidative change left lower lobe medially. Various tubes and lines in good position. IMPRESSION: Slight improvement in aeration left base laterally although consolidative change left lower lobe persists. Persistent generalized prominence of the parenchymal and peribronchial markings. Electronically signed by: Pollo Sultana M.D. 07/31/2016 6:54 AM Dictated Date/Time: 07/31/2016 6:53 AM
--- NOTE | 2016-07-31 07:20 | DIAGNOSTIC IMAGING REPORT ---
CHEST ONE VIEW PORTABLE CLINICAL HISTORY: shortness of breath dyspnea COMPARISON STUDY: 07/31/2016 FINDINGS: Unchanged study radiographically. Persistent consolidative/infiltrative change left base. Diffuse prominence of the bronchovascular and peribronchial markings throughout both hemithoraces. This is unchanged. Tracheostomy tube in good position. IMPRESSION: No change radiographically compared to the prior study. Electronically signed by: Pollo Sultana M.D. 07/31/2016 7:18 AM Dictated Date/Time: 07/31/2016 7:17 AM
--- NOTE | 2016-07-31 07:58 | Neurology Progress Notes ---
Neurology Progress Note Date of Service Jul 31, 2016. Subjective Patient has no complaints of pain or headache this morning. She has not had any dizziness or vision problems. Nursing reports no seizure activity overnight and no new issues or problems. Yesterday, the patient was transferred to the ICU because of a mucous plug affecting her breathing. Laboratory studies reveal an elevated white count with stable hemoglobin and hematocrit. Chem profile was largely unremarkable but she has elevated glucose and a mildly low sodium like admission. MRI of the brain with and without contrast reveals old infarct only. There was no evidence for new stroke or changes compared to the previous MRI. Patient has a very small left occipital venous angioma present. There is a moderate amount of old small vessel ischemic disease diffusely in the white matter as well as some mild generalized atrophy. Objective Date Time Temp Pulse Resp B/P Pulse Ox O2 Delivery O2 Flow Rate FiO2 07/31/16 06:00 80 15 110/48 92 Mechanical Ventilator 35 07/31/16 05:08 35 07/31/16 04:00 37.1 75 14 119/55 96 40 07/31/16 04:00 40 07/31/16 04:00 28 07/31/16 03:11 40 07/31/16 02:00 77 16 103/50 93 Mechanical Ventilator 35 07/31/16 01:43 28 07/31/16 00:01 36.8 16 106/46 92 Mechanical Ventilator 28 07/30/16 23:59 28 07/30/16 23:59 28 07/30/16 23:48 28 07/30/16 22:00 76 15 99/47 92 Mechanical Ventilator 28 07/30/16 20:00 37.0 67 14 103/55 92 Mechanical Ventilator 28 07/30/16 20:00 28 07/30/16 20:00 28 07/30/16 19:33 28 07/30/16 18:00 78 14 121/61 94 Mechanical Ventilator 28 07/30/16 16:45 80 14 98/54 93 28 07/30/16 16:30 83 14 101/49 93 28 07/30/16 16:15 85 14 91/51 91 28 07/30/16 16:04 28 07/30/16 16:00 28 07/30/16 16:00 36.7 88 16 79/50 93 28 07/30/16 16:00 28 07/30/16 15:45 89 14 84/53 99 Mechanical Ventilator 07/30/16 15:40 100 07/30/16 15:31 93 0 90/60 98 Mechanical Ventilator 07/30/16 15:30 113 0 78/51 98 Ambu-Bag 07/30/16 15:24 135 14 110/66 100 Ambu-Bag 07/30/16 15:16 134 14 237/114 100 Ambu-Bag 07/30/16 12:00 Mechanical Ventilator 2.0 07/30/16 11:44 36.6 79 20 162/79 100 Mechanical Ventilator 07/30/16 08:00 Mechanical Ventilator 2.0 Last 24 Hours Test 07/30/16 11:46 07/30/16 15:01 07/30/16 17:16 07/30/16 17:51 Bedside Glucose 144 mg/dl 147 mg/dl 184 mg/dl Blood Gas Sample Site L Radial Bedside Blood Gas pH (LAB) 7.34 Bedside Blood Gas pCO2 (LAB) 55 mmHg Bedside Blood Gas pO2 (LAB) 68 mmHg Bedside Blood Gas HCO3 (LAB) 30 meq/L Bedside Blood Gas Total CO2 32 mEq/l Bedside Blood Gas Base Excess (LAB) 4.0 meq/L Bedside Blood Gas O2 Saturation 92.0 % Yogesh Test Pass Oxygen Delivery Device Ventilator Bedside Oxygen Rate (breaths/min) 14 Blood Gas Minute Ventilation 6.6 Bedside FiO2 28 % Blood Gas Tidal Volume 500 Blood Gas PEEP 0 Test 07/30/16 21:18 07/30/16 23:44 07/31/16 05:14 07/31/16 05:15 Bedside Glucose 137 mg/dl 181 mg/dl 176 mg/dl White Blood Count 16.26 K/uL Red Blood Count 3.94 M/uL Hemoglobin 11.8 g/dL Hematocrit 38.0 % Mean Corpuscular Volume 96.4 fL Mean Corpuscular Hemoglobin 29.9 pg Mean Corpuscular Hemoglobin Concent 31.1 g/dl RDW Standard Deviation 67.0 fL RDW Coefficient of Variation 19.3 % Platelet Count 235 K/uL Mean Platelet Volume 9.0 fL Nucleated RBC Absolute Count (auto) 0.07 K/uL Nucleated Red Blood Cells % 0.4 % Sodium Level 133 mmol/L Potassium Level 4.4 mmol/L Chloride Level 97 mmol/L Carbon Dioxide Level 30 mmol/L Anion Gap 6.0 mmol/L Blood Urea Nitrogen 37 mg/dl Creatinine 0.82 mg/dl Est Creatinine Clear Calc Drug Dose 59.5 ml/min Estimated GFR () 84.6 Estimated GFR (Non- 73.0 BUN/Creatinine Ratio 44.7 Random Glucose 175 mg/dl Calcium Level 8.5 mg/dl Phosphorus Level 5.6 mg/dl Magnesium Level 2.5 mg/dl Imaging: MRI OF THE BRAIN WITHOUT AND WITH IV CONTRAST SEIZURE PROTOCOL CLINICAL HISTORY: seizure activity. Has pain [id number] but has had MRIs since. Seizures COMPARISON STUDY: CT brain dated 07/30/2006. MRI brain dated 11/09/2013 TECHNIQUE: Utilizing a 1.5 Jolene magnet and dedicated coil, multiplanar, multiecho imaging of the brain was performed pre and postcontrast administration. IV administration of 8.4 mL of Gadavist contrast was uneventful. Thin cut coronal T2 imaging was performed according to seizure protocol. FINDINGS: Diffusion-weighted images show no evidence for an acute ischemic focus. There are findings of old infarcts involving the occipital regions on the right and to lesser extent left. There is a small venous angioma of the left posterior pleural occipital region shows partial postcontrast enhancement. No additional enhancing foci are identified. Basal cisterns are within normal limits. Internal artery canals are symmetric. Sella and parasellar regions are unremarkable. IMPRESSION: 1. 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 2. Small venous angioma left occipital lobe 3. Mild chronic small vessel change. 4. No evidence for an acute ischemic process. Electronically signed by: Pollo Sultana M.D. 07/30/2016 2:47 PM Exam: She is awake and alert. Her speech is as per usual. Thought processes seem at baseline. Mood is reasonable. There is no facial droop. Extraocular eye muscles are intact without nystagmus. I note no ptosis. Current Inpatient Medications Medications (Trade) Dose Ordered Sig/Tasha Route Start Time Stop Time Status Last Admin Dose Admin Dipyridamole/ Aspirin (Aggrenox 200MG/ 25MG Cap) 1 cap BID PO 07/30/16 09:00 08/29/16 08:59 07/30/16 21:29 1 CAP Bisacodyl (Dulcolax Supp) 10 mg SuMoWeFr@2100 [place] 07/30/16 21:00 08/29/16 20:59 07/30/16 21:37 10 MG Insulin Glargine (Lantus Solostar Pen) 15 unit QPM SC 07/30/16 21:00 08/29/16 20:59 07/30/16 21:34 15 UNIT Phenazopyridine HCl (Pyridium Tab) 200 mg BID PRN PO 07/30/16 02:15 08/29/16 02:14 07/30/16 10:40 200 MG Miscellaneous Information (Order Awaiting Action) 1 ea QS N/A 07/30/16 05:45 08/29/16 05:44 Heparin Sodium (Porcine) (Heparin Sq 5000 Unit/0.5ml) 5,000 unit Q8 SQ 07/30/16 06:00 08/29/16 05:59 07/31/16 06:02 5,000 UNIT Ondansetron HCl (Zofran Inj) 4 mg Q6H PRN IV 07/30/16 02:15 08/29/16 02:14 Miscellaneous (Iv Fluids Completed) 1 ea PRN PRN N/A 07/30/16 03:15 07/30/17 03:14 Glucose (Glucose 40% Gel) 15-30 GRAMS 15 GRAMS... UD PRN PO 07/30/16 03:30 08/29/16 03:29 Glucose (Glucose Chew Tab) 4-8 Tablets 4 Tabl... UD PRN PO 07/30/16 03:30 08/29/16 03:29 Dextrose (Dextrose 50% 50ML Syringe) 25-50ML OF 50% DW IV FOR... UD PRN IV 07/30/16 03:30 08/29/16 03:29 Glucagon 1 mg 1 mg UD PRN SQ 07/30/16 03:30 08/29/16 03:29 Ertapenem/Sodium Chloride (Invanz Iv/Nss Ad-Van 50ml) 50 ml @ 100 mls/hr Q24H IV 07/31/16 08:00 08/10/16 07:59 Bisacodyl (Dulcolax Supp) 10 mg TuTh@0530 [place] 07/31/16 05:30 08/30/16 05:29 07/31/16 05:59 10 MG Enteral Nutritional Formula (Prosource No Carb) 30 ml TID@0600,1200,1800 PEG 07/30/16 18:00 08/29/16 17:59 07/31/16 06:00 30 ML Albuterol (Ventolin Hfa Inhaler) 2 puffs BID INH 07/30/16 21:00 08/29/16 20:59 07/30/16 21:23 2 PUFFS Lidocaine (Lidoderm Patch 5%) 2 patch DAILY@2100 TD 07/30/16 21:00 08/29/16 20:59 07/30/16 21:33 2 PATCH Miscellaneous (Remove Lidoderm Patch) 1 ea DAILY@0900 N/A 07/31/16 09:00 08/30/16 08:59 Insulin Aspart (novoLOG ASPART) SLIDING SCALE G... Q6 SC 07/30/16 18:00 08/29/16 17:59 07/31/16 06:01 1 UNITS Sterile Water (Tube Feeding Water Flush) 1 ea TID@0600,1200,1800 PEG 07/30/16 18:00 08/29/16 17:59 07/31/16 06:00 1 EA Acetaminophen (Tylenol Soln) 650 mg Q4H PRN PEG 07/30/16 18:15 08/29/16 18:14 Allopurinol (Zyloprim Tab) 100 mg DAILY PEG 07/31/16 09:00 08/30/16 08:59 Al Hydrox/Mg Hydrox/Simethicone (Maalox Max Susp) 15 ml Q4H PRN PEG 07/30/16 18:15 08/29/16 18:14 Amlodipine Besylate (Norvasc Tab) 3.75 mg DAILY PEG 07/31/16 09:00 08/30/16 08:59 Buspirone HCl (BusPAR TAB) 7.5 mg BID PEG 07/30/16 21:00 08/29/16 20:59 07/30/16 21:25 7.5 MG Clopidogrel Bisulfate (plAVix TAB) 75 mg DAILY PEG 07/31/16 09:00 08/30/16 08:59 Escitalopram Oxalate (Lexapro Oral Soln) 20 mg QAM PEG 07/31/16 09:00 08/30/16 08:59 Fluconazole (Diflucan Susp) 100 mg QPM PEG 07/30/16 21:00 08/09/16 20:59 07/30/16 21:25 100 MG Gabapentin (Neurontin) 100 mg QAM PEG 07/31/16 09:00 08/30/16 08:59 Gabapentin (Neurontin) 200 mg 1600 PEG 07/30/16 16:00 08/29/16 15:59 07/30/16 17:44 200 MG Lactobacillus Acidophilus (Floranex Tab) 4 tab TIDM PEG 07/30/16 16:30 08/29/16 16:29 07/30/16 17:45 4 TAB Pentosan Polysulfate Sodium (Elmiron) 100 mg BID PEG 07/30/16 21:00 08/29/16 20:59 07/30/16 21:26 100 MG Polyethylene (Miralax Powder Packet) 17 gm DAILY PRN PEG 07/31/16 09:00 08/30/16 08:59 Gabapentin (Neurontin) 600 mg HS PEG 07/30/16 21:00 08/29/16 20:59 07/30/16 21:37 600 MG Lorazepam (Ativan Tab) 0.5 mg DAILY PRN PEG 07/30/16 16:45 08/29/16 16:44 Magnesium Hydroxide (Milk Of Magnesia Susp) 30 ml Q12H PRN PEG 07/30/16 16:45 08/29/16 16:44 Lamotrigine (Lamictal Tab) 25 mg BID PEG 07/30/16 21:00 08/06/16 23:59 07/30/16 21:27 25 MG Lamotrigine (Lamictal Tab) 50 mg BID PEG 08/07/16 09:00 09/06/16 08:59 Non-Formulary Medication (Non-Formulary Patient'S Own Med) 1 ea TID PEG 07/30/16 21:00 08/29/16 20:59 07/30/16 20:53 1 EA Sterile Water (Tube Feeding Water Flush) 1 ea TID PEG 07/30/16 21:00 08/29/16 20:59 07/30/16 21:29 1 EA Lifitegrast (Xiidra 5% Oph Soln) 1 drop BID OP 07/30/16 21:00 08/29/16 20:59 07/30/16 21:24 1 DROP Heparin Sodium (Porcine) (Heparin 100 Unit/ml 5ml Flush) 5 ml PRN PRN IV 07/30/16 23:45 08/29/16 23:44 Impression 1. Seizure late evening of July 29. This seemed to be a bilateral tonic seizure with tongue biting and a post ictal state. She had some mild postictal confusion, but today seems also to baseline. She received no benzodiazepines but did receive a gram of Keppra IV which could have lead to some sleepiness or confusion as well. The etiology of the seizure is not readily apparent but she has multiple risk factors including medications and previous stroke. There was no obvious metabolic or hypoxic event. She may have a new pulmonary infection and has a history of chronic urinary tract infections. The patient has had multiple admissions for altered mental status, unresponsive episodes and syncope. She has had multiple tests including MRIs and EEGs. She is never had any potentially epileptogenic activity seen on EEG. She has had no further seizures since admission. 2. Slight right ptosis and slight right facial droop after admission, which seem resolved today. 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 3. She has a history of multiple bilateral strokes and small vessel ischemia Her risk factors for stroke include hypertension and diabetes 4. Cord injury, 1983, C3 resulting in quadriplegia, altered sensation diffusely , dysautonomia, and she is now ventilator dependent with a PEG tube. This seems to be stable, in general, from a neurologic standpoint 4. Anxiety and depressive condition, seemingly stable on current medication. Plan 1. There is no need for additional neurologic testing at this time. 3. Continue lamotrigine 25 mg twice a day. After one week, increase to 50 mg by mouth twice a day for 1 week, then 75 mg by mouth twice a day for 1 week, then 100 mg by mouth twice a day. Check a trough Lamictal level 2 weeks after that. I have considered other medications but I believe Lamictal may be the best choice for this patient. Keppra could make her sleepy or confused. Depakote would be a good choice for mental status preservation but has multiple side effects including tremor, weight gain, and liver issues, in theory I would avoid carbamazepine or oxcarbazepine as it could give hyponatremia. Increasing gabapentin in an effort to stop seizures would be a poor choice for seizures and will invariably make her more sleepy and confused. 4. Continue on Aggrenox and clopidogrel together, for now, having stopped 81 mg aspirin. There is no data to support the use of all 3 of these medications. In addition, there is no data supporting the use of Aggrenox and Plavix together either, but we'll keep them for now as it seems to be keeping her stable from a cerebrovascular standpoint. Please contact me if I can be of further assistance on this case otherwise she can be followed as an outpatient
[2016-07-31] MEDS: PROPYLENE GLYCOL 0.6% (OPHTH) 15 DROP/ML 10ML BTL OPB SCH (07:59)
[2016-07-31] MEDS: LACTOBACILLUS ACIDOPHILUS (FLORANEX) TAB PEG SCH ×3 (07:59→16:10)
[2016-07-31] MEDS: ERTAPENEM IV 1 GM in SODIUM CHLOR 0.9% AD-VAN 50ML IV SCH (07:59)
[2016-07-31] MEDS: BusPIRone 15 MG TAB PEG SCH ×2 (08:00→21:21)
[2016-07-31] MEDS: PENTOSAN POLYSULFATE SODIUM 100 MG CAP PEG SCH ×2 (08:01→21:20)
[2016-07-31] MEDS: GABAPENTIN 250 MG/5 ML 470 ML BTL PEG SCH ×3 (08:02→21:24)
[2016-07-31] MEDS: ENTERAL NUTRITION FORMULA PEG SCH ×3 (08:02→20:41)
[2016-07-31] MEDS: DIPYRIDAMOLE/ASPIRIN CAP PO SCH ×2 (08:03→21:20)
[2016-07-31] MEDS: AMLODIPINE BESYLATE 5 MG TAB PEG SCH (08:03)
[2016-07-31] MEDS: CLOPIDOGREL BISULFATE 75 MG TAB PEG SCH (08:03)
[2016-07-31] MEDS: ALLOPURINOL 100 MG TAB PEG SCH (08:03)
[2016-07-31] MEDS: [UNRECOGNIZED DRUG - SUPPLY] OP SCH ×2 (08:04→21:00)
[2016-07-31] MEDS: LIFITEGRAST 5% OP SCH ×2 (08:04→21:00)
[2016-07-31 09:00] LABS: BASO % 0.1 %; BASO ABS # 0.02 K/uL (0-0.2); COMPLETE YES; EOS % 0.5 %; IG% 0.4 %; LYMPH % 23.7 %; MONO % 6.8 %; NEUT % 68.5 %
[2016-07-31] MEDS ORDERED: ESCITALOPRAM OXALATE PEG SCH (09:00)
[2016-07-31] MEDS: ALBUTEROL HFA 8 GM INHALER INH SCH ×4 (09:00→20:23)
[2016-07-31] MEDS ORDERED: POLYETHYLENE (MIRALAX) 17 GM PACK PEG PRN (09:00)
--- NOTE | 2016-07-31 09:40 | Critical Care Progress Note ---
Critical Care Progress Note Date of Service Jul 31, 2016. ICU Day ICU Day Number: [address] Moses Subjective Patient had another hypoxic episode last night and FiO2 was increased to 40, has been weaned to 35, she was also given lasix with albumin for hypotension and possible pleural effusion she has not had another episode ROS was limited because of limited communication with patient, as per outsole cementer machine she is doing well this morning and no seizure like activity overnight Objective General: resting in bed, slightly drowsy Skin: no rashes noted, no suspicious lesions, bandage on a lesion on right buttock CVS: S1/ S2 noted, RRR, no rubs/ murmurs noted, no cyanosis RVS: decreased bilat bases, tracheostomy in place, no resp distress ENT: inspection WNL Neck: inspection WNL, full ROM of neck, tracheostomy noted ABD: BSx4 but hypoactive, distended abd, non tender MSK: atrophy of limbs; BL otherwise inspection WNL NVS: = PERRL, EOMI, Lymph: No lymphadenopathy palpable Current SOFA Score SOFA Score Response (Comments) Value SaO2 / FIO2 < 67 4 Platelets (x10) < 150 1 Tina Coma Score 13 - 14 1 Level of Hypotension No Hypotension 0 Total 6 Assessment & Plan 1. acute on chronic respiratory failure in a ventilator dependent individual secondary to mechanical obstruction from mucus plug 2. Possible aspiration PNA as indicated by sputum production, hypoxia and elevated WBC 3. metabolic encephalopathy secondary to sedative- improved 4. new onset seizure, no significant changes in MRI 5. Chronic UTI/ chronic hernandez 6. Hyponatremia 7. Hyperphosphatemia/ Hypermagnesemia 8. Chronic suppressive therapy with alternating ertapenem, fluconazole and gentamicin 9. HTN 10. DMII 11. H/O CVA NVS - will continue to assess LOC, most likely altered from the Ativan however greatly improved - Lamictal as per Neuro rec - brain MRI - no acute findings - continue plavix, d/c ASA - continue Neurontin for pain control - continue Buspar and Lexapro - appreciate pain mx consult rec CVS - will monitor on tele - continue amlodipine RVS - currently on hospital ventilator - plan is to hopefully transition today to home monitor - will regularly check status of cuff because most likely cuff leak - sputum cx - duoneb q 6 h tasha GI - Resume tube feedings - elevated phos and mag this morning - discussed with scoop driver and if remains elevated tomorrow may consider adjusting the supplement - miralax and doculax - monitor I&O ENDO - insulin ISS and 15 unit lantus pm - BSG AC HS FEN - continue to monitor daily BMP HEME - hgb 11.8 and BL for patient - elevated WBC - leukemoid rx vs infectious process - will continue to trend ID - continue ertapenem and fluconazole - considering these new findings and new episode of hypoxia, check sputum cx - discuss with primary team about consulting ID considering her extensive allergies and chronic regimen Resident Physician Supervision Note/Electrical Systems Drafter Attending I interviewed and examined the patient. Discussed with Dr. Trimble and agree with findings and plan as documented in the note. Any exceptions or clarifications are listed here: The patient's care was discussed in detail on multidisciplinary rounds. I have reviewed VS, I/O, notes, medications, labs, micro and imaging. She had brief desaturation overnight and FIO2 was increased to 40%, Peep to 2. She also received albumin and lasix for pleural effusion according to Dr. Barrow. Today she is producing a small amount of yellow sputum and there may be an infiltrate developing in the LLL. She has had an effusion there in the past and I don't think it's much different than previously. With possible aspiration yesterday, leukocytosis, sputum and increased O2 requirements, one could make a case to begin antibiotics but I'm not entirely sure she needs them presently. With multiple allergies and cycling of other antibiotics, management of antibiotics can be challenging. Will wait for the differential on the CBC, check sputum culture, sit her up, add bronchodilators, begin to wean the fio2/peep back down and discuss with the primary team. Follow CXR and clinical status. Her mental status is definitely improved from yesterday and the initial ABG done on arrival to the ICU is not in the computer. PCo2 was 75 with pH of 7.2 and hypercapnia was adding to the sedative effect of the Ativan. No seizures and lamictal will be increased according to neurology recommendations. Trach cuff seems to be holding air. Continue supportive care otherwise. Discussed with patient and caregiver at the bedside. Documented By: Aleyda Moses Consults & Procedures Consultants: Dr Eid- Neuro Procedures: NA Data Medications: Current Inpatient Medications Medications (Trade) Dose Ordered Sig/Tasha Route Start Time Stop Time Status Last Admin Dose Admin Dipyridamole/ Aspirin (Aggrenox 200MG/ 25MG Cap) 1 cap BID PO 07/30/16 09:00 08/29/16 08:59 07/31/16 08:03 1 CAP Bisacodyl (Dulcolax Supp) 10 mg SuMoWeFr@2100 MT 07/30/16 21:00 08/29/16 20:59 07/30/16 21:37 10 MG Insulin Glargine (Lantus Solostar Pen) 15 unit QPM SC 07/30/16 21:00 08/29/16 20:59 07/30/16 21:34 15 UNIT Phenazopyridine HCl (Pyridium Tab) 200 mg BID PRN PO 07/30/16 02:15 08/29/16 02:14 07/30/16 10:40 200 MG Miscellaneous Information (Order Awaiting Action) 1 ea QS N/A 07/30/16 05:45 08/29/16 05:44 Heparin Sodium (Porcine) (Heparin Sq 5000 Unit/0.5ml) 5,000 unit Q8 SQ 07/30/16 06:00 08/29/16 05:59 07/31/16 06:02 5,000 UNIT Ondansetron HCl (Zofran Inj) 4 mg Q6H PRN IV 07/30/16 02:15 08/29/16 02:14 Miscellaneous (Iv Fluids Completed) 1 ea PRN PRN N/A 07/30/16 03:15 07/30/17 03:14 Glucose (Glucose 40% Gel) 15-30 GRAMS 15 GRAMS... UD PRN PO 07/30/16 03:30 08/29/16 03:29 Glucose (Glucose Chew Tab) 4-8 Tablets 4 Tabl... UD PRN PO 07/30/16 03:30 08/29/16 03:29 Dextrose (Dextrose 50% 50ML Syringe) 25-50ML OF 50% DW IV FOR... UD PRN IV 07/30/16 03:30 08/29/16 03:29 Glucagon 1 mg 1 mg UD PRN SQ 07/30/16 03:30 08/29/16 03:29 Ertapenem/Sodium Chloride (Invanz Iv/Nss Ad-Van 50ml) 50 ml @ 100 mls/hr Q24H IV 07/31/16 08:00 08/10/16 07:59 07/31/16 07:59 100 MLS/HR Bisacodyl (Dulcolax Supp) 10 mg TuTh@0530 MT 07/31/16 05:30 08/30/16 05:29 07/31/16 05:59 10 MG Enteral Nutritional Formula (Prosource No Carb) 30 ml TID@0600,1200,1800 PEG 07/30/16 18:00 08/29/16 17:59 07/31/16 08:04 30 ML Albuterol (Ventolin Hfa Inhaler) 2 puffs BID INH 07/30/16 21:00 08/29/16 20:59 07/30/16 21:23 2 PUFFS Lidocaine (Lidoderm Patch 5%) 2 patch DAILY@2100 TD 07/30/16 21:00 08/29/16 20:59 07/30/16 21:33 2 PATCH Miscellaneous (Remove Lidoderm Patch) 1 ea DAILY@0900 N/A 07/31/16 09:00 08/30/16 08:59 07/31/16 08:04 1 EA Insulin Aspart (novoLOG ASPART) SLIDING SCALE G... Q6 SC 07/30/16 18:00 08/29/16 17:59 07/31/16 06:01 1 UNITS Sterile Water (Tube Feeding Water Flush) 1 ea TID@0600,1200,1800 PEG 07/30/16 18:00 08/29/16 17:59 07/31/16 06:00 1 EA Acetaminophen (Tylenol Soln) 650 mg Q4H PRN PEG 07/30/16 18:15 08/29/16 18:14 Allopurinol (Zyloprim Tab) 100 mg DAILY PEG 07/31/16 09:00 08/30/16 08:59 07/31/16 08:03 100 MG Al Hydrox/Mg Hydrox/Simethicone (Maalox Max Susp) 15 ml Q4H PRN PEG 07/30/16 18:15 08/29/16 18:14 Amlodipine Besylate (Norvasc Tab) 3.75 mg DAILY PEG 07/31/16 09:00 08/30/16 08:59 07/31/16 08:03 3.75 MG Buspirone HCl (BusPAR TAB) 7.5 mg BID PEG 07/30/16 21:00 08/29/16 20:59 07/31/16 08:00 7.5 MG Clopidogrel Bisulfate (plAVix TAB) 75 mg DAILY PEG 07/31/16 09:00 08/30/16 08:59 07/31/16 08:03 75 MG Escitalopram Oxalate (Lexapro Oral Soln) 20 mg QAM PEG 07/31/16 09:00 08/30/16 08:59 07/31/16 08:38 20 MG Fluconazole (Diflucan Susp) 100 mg QPM PEG 07/30/16 21:00 08/09/16 20:59 07/30/16 21:25 100 MG Gabapentin (Neurontin) 100 mg QAM PEG 07/31/16 09:00 08/30/16 08:59 07/31/16 08:02 100 MG Gabapentin (Neurontin) 200 mg 1600 PEG 07/30/16 16:00 08/29/16 15:59 07/30/16 17:44 200 MG Lactobacillus Acidophilus (Floranex Tab) 4 tab TIDM PEG 07/30/16 16:30 08/29/16 16:29 07/31/16 07:59 4 TAB Pentosan Polysulfate Sodium (Elmiron) 100 mg BID PEG 07/30/16 21:00 08/29/16 20:59 07/31/16 08:01 100 MG Polyethylene (Miralax Powder Packet) 17 gm DAILY PRN PEG 07/31/16 09:00 08/30/16 08:59 Gabapentin (Neurontin) 600 mg HS PEG 07/30/16 21:00 08/29/16 20:59 07/30/16 21:37 600 MG Lorazepam (Ativan Tab) 0.5 mg DAILY PRN PEG 07/30/16 16:45 08/29/16 16:44 Magnesium Hydroxide (Milk Of Magnesia Susp) 30 ml Q12H PRN PEG 07/30/16 16:45 08/29/16 16:44 Lamotrigine (Lamictal Tab) 25 mg BID PEG 07/30/16 21:00 08/06/16 23:59 07/31/16 08:01 25 MG Lamotrigine (Lamictal Tab) 50 mg BID PEG 08/07/16 09:00 09/06/16 08:59 Non-Formulary Medication (Non-Formulary Patient'S Own Med) 1 ea TID PEG 07/30/16 21:00 08/29/16 20:59 07/31/16 08:02 1 EA Sterile Water (Tube Feeding Water Flush) 1 ea TID PEG 07/30/16 21:00 08/29/16 20:59 07/31/16 08:03 1 EA Lifitegrast (Xiidra 5% Oph Soln) 1 drop BID OP 07/30/16 21:00 08/29/16 20:59 07/31/16 08:04 1 DROP Heparin Sodium (Porcine) (Heparin 100 Unit/ml 5ml Flush) 5 ml PRN PRN IV 07/30/16 23:45 08/29/16 23:44 I & O: 24-Hour Column 07/31/16 08:00 Intake Total 647 ml Output Total 1400 ml Balance -753 ml Vital Signs: Date Time Temp Pulse Resp B/P Pulse Ox O2 Delivery O2 Flow Rate FiO2 07/31/16 08:00 37.0 87 14 117/44 95 Mechanical Ventilator 35 07/31/16 08:00 35 07/31/16 08:00 35 07/31/16 07:40 35 07/31/16 06:00 80 15 110/48 92 Mechanical Ventilator 35 07/31/16 05:08 35 07/31/16 04:00 37.1 75 14 119/55 96 40 07/31/16 04:00 40 07/31/16 04:00 28 07/31/16 03:11 40 07/31/16 02:00 77 16 103/50 93 Mechanical Ventilator 35 07/31/16 01:43 28 07/31/16 00:01 36.8 16 106/46 92 Mechanical Ventilator 28 07/30/16 23:59 28 07/30/16 23:59 28 07/30/16 23:48 28 07/30/16 22:00 76 15 99/47 92 Mechanical Ventilator 28 07/30/16 20:00 37.0 67 14 103/55 92 Mechanical Ventilator 28 07/30/16 20:00 28 07/30/16 20:00 28 07/30/16 19:33 28 07/30/16 18:00 78 14 121/61 94 Mechanical Ventilator 28 07/30/16 16:45 80 14 98/54 93 28 07/30/16 16:30 83 14 101/49 93 28 07/30/16 16:15 85 14 91/51 91 28 07/30/16 16:04 28 07/30/16 16:00 28 07/30/16 16:00 36.7 88 16 79/50 93 28 07/30/16 16:00 28 07/30/16 15:45 89 14 84/53 99 Mechanical Ventilator 07/30/16 15:40 100 07/30/16 15:31 93 0 90/60 98 Mechanical Ventilator 07/30/16 15:30 113 0 78/51 98 Ambu-Bag 07/30/16 15:24 135 14 110/66 100 Ambu-Bag 07/30/16 15:16 134 14 237/114 100 Ambu-Bag 07/30/16 12:00 Mechanical Ventilator 2.0 07/30/16 11:44 36.6 79 20 162/79 100 Mechanical Ventilator Laboratory Results: Last 24 Hours Test 07/30/16 11:46 07/30/16 15:01 07/30/16 17:16 07/30/16 17:51 Bedside Glucose 144 mg/dl 147 mg/dl 184 mg/dl Blood Gas Sample Site L Radial Bedside Blood Gas pH (LAB) 7.34 Bedside Blood Gas pCO2 (LAB) 55 mmHg Bedside Blood Gas pO2 (LAB) 68 mmHg Bedside Blood Gas HCO3 (LAB) 30 meq/L Bedside Blood Gas Total CO2 32 mEq/l Bedside Blood Gas Base Excess (LAB) 4.0 meq/L Bedside Blood Gas O2 Saturation 92.0 % Yogesh Test Pass Oxygen Delivery Device Ventilator Bedside Oxygen Rate (breaths/min) 14 Blood Gas Minute Ventilation 6.6 Bedside FiO2 28 % Blood Gas Tidal Volume 500 Blood Gas PEEP 0 Test 07/30/16 21:18 07/30/16 23:44 07/31/16 05:14 07/31/16 05:15 Bedside Glucose 137 mg/dl 181 mg/dl 176 mg/dl White Blood Count 16.26 K/uL Red Blood Count 3.94 M/uL Hemoglobin 11.8 g/dL Hematocrit 38.0 % Mean Corpuscular Volume 96.4 fL Mean Corpuscular Hemoglobin 29.9 pg Mean Corpuscular Hemoglobin Concent 31.1 g/dl Platelet Count 235 K/uL Mean Platelet Volume 9.0 fL Neutrophils (%) (Auto) 68.5 % Lymphocytes (%) (Auto) 23.7 % Monocytes (%) (Auto) 6.8 % Eosinophils (%) (Auto) 0.5 % Basophils (%) (Auto) 0.1 % Neutrophils # (Auto) 11.86 K/uL Lymphocytes # (Auto) 4.10 K/uL Monocytes # (Auto) 1.18 K/uL Eosinophils # (Auto) 0.08 K/uL Basophils # (Auto) 0.02 K/uL RDW Standard Deviation 67.0 fL RDW Coefficient of Variation 19.3 % Immature Granulocyte % (Auto) 0.4 % Immature Granulocyte # (Auto) 0.07 K/uL Nucleated RBC Absolute Count (auto) 0.07 K/uL Nucleated Red Blood Cells % 0.4 % Sodium Level 133 mmol/L Potassium Level 4.4 mmol/L Chloride Level 97 mmol/L Carbon Dioxide Level 30 mmol/L Anion Gap 6.0 mmol/L Blood Urea Nitrogen 37 mg/dl Creatinine 0.82 mg/dl Est Creatinine Clear Calc Drug Dose 59.5 ml/min Estimated GFR () 84.6 Estimated GFR (Non- 73.0 BUN/Creatinine Ratio 44.7 Random Glucose 175 mg/dl Calcium Level 8.5 mg/dl Phosphorus Level 5.6 mg/dl Magnesium Level 2.5 mg/dl
[2016-07-31] MEDS ORDERED: ALBUT/IPRATROP 3MG/0.5MG NEB 3 ML VIAL INH PRN (10:00)
[2016-07-31] MEDS: ONDANSETRON INJ 2 MG/ML 2 ML VIAL IV PRN ×2 (10:43→21:28)
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
[2016-07-31] MEDS ORDERED: ALBUT/IPRATROP 3MG/0.5MG NEB 3 ML VIAL INH SCH (12:00)
[2016-07-31] MEDS ORDERED: ALBUTEROL HFA 8 GM INHALER INH SCH (13:00)
[2016-07-31] MEDS ORDERED: IPRATROPIUM BROMIDE HFA INHALER INH SCH (13:00)
[2016-07-31 13:08] LABS: ISTAT ARTERIAL BLOOD GAS PCO2 75 mmHg (35-46); ISTAT ARTERIAL BLOOD GAS pH 7.24 (7.35-7.45)
[2016-07-31 13:09] LABS: ISTAT ARTERIAL BLOOD GAS HCO3 32 meq/L (19-24); ISTAT ARTERIAL BLOOD GAS PO2 384 mmHg (80-95); ISTAT CARBON DIOXIDE 34 mEq/l (24-31); ISTAT FIO2 100 %
[2016-07-31 13:10] LABS: ISTAT ALLEN TEST ACCEPTABLE; ISTAT DELIVERY SYSTEM Ventilator; ISTAT RATE 14; ISTAT SAMPLE TYPE ARTERIAL; ISTAT SITE L Radial
[2016-07-31 13:11] LABS: ISTAT PEEP 5; ISTAT SPO2 99 %; VE 7.3; Vt 500
--- NOTE | 2016-07-31 13:13 | PROGRESS NOTE ---
DATE: 07/31/2016 DATE: 07/31/2016. Plan of care discussed with Dr. Christopher. CHIEF COMPLAINT: Evaluation of intrathecal pump. SUBJECTIVE: Ms. Farris is a 71-year-old white female with paraplegia secondary to spinal cord injury who is followed by the pain service due to chronic neuropathic pain requiring implantation of intrathecal pump and catheter delivery system. The patient has multiple comorbid medical conditions and was recently admitted due to seizure event. Intrathecal pump was interrogated by Dr. Christopher yesterday which indicated appropriate functionality at this time. She denies any increase in her typical neuropathic pain complaints or any increased spasm. She is scheduled for intrathecal pump refill in the pain clinic later this week. Coordination will be attempted upon this admission. OBJECTIVE: VITAL SIGNS: Temperature 37 degrees Celsius, pulse 87, respirations 14, BP 117/44, pulse oximetry 95 with mechanical ventilator in place with FIO2 of 35. GENERAL: Ms. Farris is lying quietly upon entering the room in no acute distress accompanied by caregiver. The patient is lying in the left lateral decubitus position. Communication was effective with the assistance from caregiver as the patient's voice is soft -- typical finding. The abdomen was soft. The pump site was unremarkable. The pump was interrogated at today's visit to verify settings and low reservoir alarm date. The patient appears to be older than her stated age. LOWER EXTREMITIES: No evidence of spasm or rigidity appreciated. ASSESSMENT: 1. Chronic intractable neuropathic pain secondary to spinal cord injury requiring implantation of intrathecal pump and catheter delivery system. 2. New onset seizure activity. 3. Quadriplegia with spasticity -- adequately controlled with current intrathecal infusion rate. TREATMENT AND RECOMMENDATIONS: Intrathecal pump was interrogated again at today's visit. Refer to pump printout in EMR. Low reservoir alarm date is currently 08/07/2016. Will attempt to coordinate refilling of her intrathecal pump upon this admission. Will continue to follow along and potentially plan for pump refill while inpatient later this week. INO
[2016-07-31] MEDS: IPRATROPIUM BROMIDE HFA INHALER INH SCH ×2 (15:48→20:23)
[2016-07-31] MEDS ORDERED: NURSING VERBAL MED ORDER ONE (21:00)
[2016-07-31] MEDS: LIDODERM (LIDOCAINE) PATCH 5% TD SCH (21:19)
[2016-07-31] MEDS: FLUCONAZOLE SUSP 100 MG/10 ML UDP PEG SCH (21:22)
[2016-07-31] MEDS: ACETAMINOPHEN SOLN 650MG/20.3 ML UDC PEG PRN (21:29)
[2016-07-31] MEDS: INSULIN GLARGINE SOLOSTAR 100 UNITS/ML 3 ML PEN SC SCH (21:53)
[2016-08-01] VITALS (24 sets, daily range): BP systolic 113–202; BP diastolic 47–96; PULSE 74–97; TEMP 36.4–37.4; O2SAT 75–100
[2016-08-01 05:22] LABS: BASO % 0.2 %; BASO ABS # 0.03 K/uL (0-0.2); COMPLETE YES; EOS % 0.1 %; HEMATOCRIT 35.1 % (37-47); IG% 0.5 %; LYMPH % 21.5 %; MEAN CELL VOLUME 97.5 fL (80-100); MEAN CORPUSCULAR HEMOGLOBIN 28.9 pg (25-34); MEAN CORPUSCULAR HGB CONC 29.6 g/dl (32-36); MEAN PLATELET VOLUME 9.3 fL (7.4-10.4); MONO % 5.9 %; NEUT % 71.8 %; PLATELET COUNT 209 K/uL (130-400); WHITE BLOOD COUNT 17.68 K/uL (4.8-10.8)
[2016-08-01 05:47] LABS: BUN/CREATININE RATIO 62.3 (10-20); CALCIUM 8.7 mg/dl (8.5-10.1); CREATININE 0.86 mg/dl (0.60-1.20); MAGNESIUM 2.8 mg/dl (1.8-2.4); POTASSIUM 4.3 mmol/L (3.5-5.1)
[2016-08-01 05:51] LABS: ALB/GLOB RATIO 0.4 (0.9-2); PHOSPHORUS 4.2 mg/dl (2.5-4.9)
[2016-08-01] MEDS: PROSOURCE NOCARB 30ML/PKT PEG SCH ×3 (06:00→17:14)
[2016-08-01] MEDS: TUBE FEEDING WATER FLUSH PEG SCH ×6 (06:00→20:55)
[2016-08-01] MEDS: INSULIN ASPART 100 UNITS/ML 3 ML PEN SC SCH ×6 (06:29→23:37)
[2016-08-01] MEDS: HEPARIN SOD 5000 UNIT/0.5 ML CARP SQ SCH ×3 (06:30→21:10)
[2016-08-01] MEDS: ONDANSETRON INJ 2 MG/ML 2 ML VIAL IV PRN ×3 (06:55→19:31)
--- NOTE | 2016-08-01 07:33 | DIAGNOSTIC IMAGING REPORT ---
CHEST ONE VIEW PORTABLE HISTORY: shortness of breath COMPARISON: Chest 07/31/2016. FINDINGS: Satisfactory support line placement which is unchanged in position. The heart is stable in size. Small left pleural effusion/density persists. Interstitial and vascular thickening remains unchanged. This favors mild pulmonary edema. IMPRESSION: 1. No change from the prior study. 2. Satisfactory support line placement. 3. Mild pulmonary edema and a left basilar opacity/effusion persists. Electronically signed by: Iban Hoffman M.D. 08/01/2016 7:31 AM Dictated Date/Time: 08/01/2016 7:30 AM
[2016-08-01] MEDS: ERTAPENEM IV 1 GM in SODIUM CHLOR 0.9% AD-VAN 50ML IV SCH (07:52)
[2016-08-01] MEDS: LACTOBACILLUS ACIDOPHILUS (FLORANEX) TAB PEG SCH ×3 (07:53→16:14)
[2016-08-01] MEDS: BusPIRone 15 MG TAB PEG SCH ×2 (07:53→20:46)
[2016-08-01] MEDS: CLOPIDOGREL BISULFATE 75 MG TAB PEG SCH (07:53)
[2016-08-01] MEDS: ALLOPURINOL 100 MG TAB PEG SCH (07:53)
[2016-08-01] MEDS: DIPYRIDAMOLE/ASPIRIN CAP PO SCH ×2 (07:54→20:49)
[2016-08-01] MEDS: PENTOSAN POLYSULFATE SODIUM 100 MG CAP PEG SCH ×2 (07:54→20:47)
[2016-08-01] MEDS: ENTERAL NUTRITION FORMULA PEG SCH ×3 (07:54→20:55)
[2016-08-01] MEDS: IPRATROPIUM BROMIDE HFA INHALER INH SCH ×4 (07:54→19:42)
[2016-08-01] MEDS: ESCITALOPRAM OXALATE ORAL SOLN 5 MG/5 ML PEG SCH (07:54)
[2016-08-01] MEDS: ALBUTEROL HFA 8 GM INHALER INH SCH ×4 (07:54→19:42)
[2016-08-01] MEDS: GABAPENTIN 250 MG/5 ML 470 ML BTL PEG SCH ×3 (07:57→20:53)
[2016-08-01] MEDS: PROPYLENE GLYCOL 0.6% (OPHTH) 15 DROP/ML 10ML BTL OPB SCH (08:40)
[2016-08-01] MEDS: LIFITEGRAST 5% OP SCH ×2 (08:40→20:45)
[2016-08-01] MEDS: [UNRECOGNIZED DRUG - SUPPLY] OP SCH ×2 (08:40→20:44)
[2016-08-01] MEDS: AMLODIPINE BESYLATE 5 MG TAB PEG SCH (08:48)
[2016-08-01] MEDS ORDERED: ESCITALOPRAM OXALATE ORAL SOLN 5 MG/5 ML PEG SCH (09:00)
[2016-08-01] MEDS: ALUMINUM/MAGNESIUM/SIMETH (MAALOX MAX) 30 ML UDC PEG PRN (09:46)
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
--- NOTE | 2016-08-01 10:02 | Critical Care Progress Note ---
Critical Care Progress Note Date of Service Aug 01, 2016. ICU Day ICU Day Number: [address] Moses Subjective Patient did not have any hypoxic episodes overnight She denies any pain and states "I am as comfortable as I can be" Did have thick sputum suctioned this morning ROS limited because of tracheostomy tube and limited communication Objective General: resting in bed, alert Skin: no rashes noted, no suspicious lesions, bandage on a lesion on right buttock CVS: S1/ S2 noted, RRR, no rubs/ murmurs noted, no cyanosis RVS: decreased bilat bases, tracheostomy in place, no resp distress, coarse breath sounds throughout ENT: inspection WNL Neck: inspection WNL, full ROM of neck, tracheostomy noted ABD: BSx4 but hypoactive, distended abd, non tender MSK: atrophy of limbs; BL otherwise inspection WNL NVS: PERRL, EOMI Lymph: No lymphadenopathy palpable Current SOFA Score SOFA Score Response (Comments) Value SaO2 / FIO2 < 67 4 Platelets (x10) < 150 1 Tina Coma Score 13 - 14 1 Level of Hypotension No Hypotension 0 Total 6 Assessment & Plan 1. acute on chronic respiratory failure in a ventilator dependent individual secondary to mechanical obstruction from mucus plug 2. Possible aspiration PNA as indicated by sputum production, hypoxia and elevated WBC 3. metabolic encephalopathy secondary to sedative- improved 4. new onset seizure, no significant changes in MRI 5. Chronic UTI/ chronic hernandez 6. Hyponatremia 7. Hyperphosphatemia/ Hypermagnesemia 8. Chronic suppressive therapy with alternating ertapenem, fluconazole and gentamicin 9. HTN 10. DMII 11. H/O CVA NVS - Lamictal as per Neuro rec - brain MRI - no acute findings - continue plavix, d/c ASA - continue Neurontin for pain control - continue Buspar and Lexapro - appreciate pain mx consult rec - plan is to refill intrathecal cath this week while on inpatient CVS - will monitor on tele - continue amlodipine RVS - currently on hospital ventilator RR14, TV 500, PEEP 0 Fi02 28 O2 sat 92% - The above setting is her home vent settings - plan is to hopefully transition today to home monitor - She is apparently having arranged a new ventilator - Pulm consult - will regularly check status of cuff because most likely cuff leak - sputum cx- pending - duoneb q 6 h tasha GI - Resume tube feedings - elevated phos and mag this morning - will recheck lytes and phos/ mag in the am and adjust accordingly - miralax and doculax - monitor I&O ENDO - insulin ISS and 20 unit lantus pm - receives 54G of CHO/ bolus, carb ratio additionally added - BSG AC HS FEN - continue to monitor daily BMP HEME - hgb 11.8 and BL for patient - elevated WBC, left shift - continue to trend ID - continue ertapenem and fluconazole -considering increased O2 req and worsening CXR will get ID involved and she has a tendency to quickly deteriorate - ID consulted Resident Physician Supervision Note/Speech Language Pathologist Travel Attending I interviewed and examined the patient. Discussed with Dr. Trimble and agree with findings and plan as documented in the note. Any exceptions or clarifications are listed here: The patient's care was discussed in detail on multidisciplinary rounds this morning. I have reviewed the vitals, I/O, notes, meds, labs, micro, imaging and other reports. She is producing more sputum today, her WBC is rising likely secondary to aspiration and she has GNR in her sputum gram stain. She also has yeast in her urine culture. Care discussed with ID regarding empiric antibiotics - Tigecycline, ampho B bladder wash and IV caspofungin. Also discussed care with Dr. Mixon and briefly with Dr. Luther - and plan is for bronchoscopy tomorrow. Will continue tube feeds and free H2O as we have been and follow Na. No seizures. Melatonin started last night by hospitalist - continue for now. Avoid ativan if possible. Documented By: Aleyda Moses Consults & Procedures Consultants: Dr Eid- Neuro Sendy Martinez- ID Dr Luther- Pulm Procedures: NA Data Medications: Current Inpatient Medications Medications (Trade) Dose Ordered Sig/Tasha Route Start Time Stop Time Status Last Admin Dose Admin Dipyridamole/ Aspirin (Aggrenox 200MG/ 25MG Cap) 1 cap BID PO 07/30/16 09:00 08/29/16 08:59 08/01/16 07:54 1 CAP Bisacodyl (Dulcolax Supp) 10 mg SuMoWeFr@2100 [place] 07/30/16 21:00 08/29/16 20:59 07/30/16 21:37 10 MG Phenazopyridine HCl (Pyridium Tab) 200 mg BID PRN PO 07/30/16 02:15 08/29/16 02:14 07/30/16 10:40 200 MG Miscellaneous Information (Order Awaiting Action) 1 ea QS N/A 07/30/16 05:45 08/29/16 05:44 Heparin Sodium (Porcine) (Heparin Sq 5000 Unit/0.5ml) 5,000 unit Q8 SQ 07/30/16 06:00 08/29/16 05:59 08/01/16 06:30 5,000 UNIT Ondansetron HCl (Zofran Inj) 4 mg Q6H PRN IV 07/30/16 02:15 08/29/16 02:14 08/01/16 06:55 4 MG Miscellaneous (Iv Fluids Completed) 1 ea PRN PRN N/A 07/30/16 03:15 07/30/17 03:14 Glucose (Glucose 40% Gel) 15-30 GRAMS 15 GRAMS... UD PRN PO 07/30/16 03:30 08/29/16 03:29 Glucose (Glucose Chew Tab) 4-8 Tablets 4 Tabl... UD PRN PO 07/30/16 03:30 08/29/16 03:29 Dextrose (Dextrose 50% 50ML Syringe) 25-50ML OF 50% DW IV FOR... UD PRN IV 07/30/16 03:30 08/29/16 03:29 Glucagon 1 mg 1 mg UD PRN SQ 07/30/16 03:30 08/29/16 03:29 Ertapenem/Sodium Chloride (Invanz Iv/Nss Ad-Van 50ml) 50 ml @ 100 mls/hr Q24H IV 07/31/16 08:00 08/10/16 07:59 08/01/16 07:52 100 MLS/HR Bisacodyl (Dulcolax Supp) 10 mg TuTh@0530 [place] 07/31/16 05:30 08/30/16 05:29 07/31/16 05:59 10 MG Enteral Nutritional Formula (Prosource No Carb) 30 ml TID@0600,1200,1800 PEG 07/30/16 18:00 08/29/16 17:59 08/01/16 06:00 30 ML Lidocaine (Lidoderm Patch 5%) 2 patch DAILY@2100 TD 07/30/16 21:00 08/29/16 20:59 07/31/16 21:19 2 PATCH Miscellaneous (Remove Lidoderm Patch) 1 ea DAILY@0900 N/A 07/31/16 09:00 08/30/16 08:59 08/01/16 08:42 1 EA Sterile Water (Tube Feeding Water Flush) 1 ea TID@0600,1200,1800 PEG 07/30/16 18:00 08/29/16 17:59 08/01/16 06:00 1 EA Acetaminophen (Tylenol Soln) 650 mg Q4H PRN PEG 07/30/16 18:15 08/29/16 18:14 07/31/16 21:29 650 MG Allopurinol (Zyloprim Tab) 100 mg DAILY PEG 07/31/16 09:00 08/30/16 08:59 08/01/16 07:53 100 MG Al Hydrox/Mg Hydrox/Simethicone (Maalox Max Susp) 15 ml Q4H PRN PEG 07/30/16 18:15 08/29/16 18:14 08/01/16 09:46 15 ML Amlodipine Besylate (Norvasc Tab) 3.75 mg DAILY PEG 07/31/16 09:00 08/30/16 08:59 08/01/16 08:48 3.75 MG Buspirone HCl (BusPAR TAB) 7.5 mg BID PEG 07/30/16 21:00 08/29/16 20:59 08/01/16 07:53 7.5 MG Clopidogrel Bisulfate (plAVix TAB) 75 mg DAILY PEG 07/31/16 09:00 08/30/16 08:59 08/01/16 07:53 75 MG Fluconazole (Diflucan Susp) 100 mg QPM PEG 07/30/16 21:00 08/09/16 20:59 07/31/16 21:22 100 MG Gabapentin (Neurontin) 100 mg QAM PEG 07/31/16 09:00 08/30/16 08:59 08/01/16 07:57 100 MG Gabapentin (Neurontin) 200 mg 1600 PEG 07/30/16 16:00 08/29/16 15:59 07/31/16 16:11 200 MG Lactobacillus Acidophilus (Floranex Tab) 4 tab TIDM PEG 07/30/16 16:30 08/29/16 16:29 08/01/16 07:53 4 TAB Pentosan Polysulfate Sodium (Elmiron) 100 mg BID PEG 07/30/16 21:00 08/29/16 20:59 08/01/16 07:54 100 MG Polyethylene (Miralax Powder Packet) 17 gm DAILY PRN PEG 07/31/16 09:00 08/30/16 08:59 Gabapentin (Neurontin) 600 mg HS PEG 07/30/16 21:00 08/29/16 20:59 07/31/16 21:24 600 MG Lorazepam (Ativan Tab) 0.5 mg DAILY PRN PEG 07/30/16 16:45 08/29/16 16:44 Magnesium Hydroxide (Milk Of Magnesia Susp) 30 ml Q12H PRN PEG 07/30/16 16:45 08/29/16 16:44 Lamotrigine (Lamictal Tab) 25 mg BID PEG 07/30/16 21:00 08/06/16 23:59 08/01/16 07:53 25 MG Lamotrigine (Lamictal Tab) 50 mg BID PEG 08/07/16 09:00 09/06/16 08:59 Non-Formulary Medication (Non-Formulary Patient'S Own Med) 1 ea TID PEG 07/30/16 21:00 08/29/16 20:59 08/01/16 07:54 1 EA Sterile Water (Tube Feeding Water Flush) 1 ea TID PEG 07/30/16 21:00 08/29/16 20:59 08/01/16 07:54 1 EA Lifitegrast (Xiidra 5% Oph Soln) 1 drop BID OP 07/30/16 21:00 08/29/16 20:59 08/01/16 08:40 1 DROP Heparin Sodium (Porcine) (Heparin 100 Unit/ml 5ml Flush) 5 ml PRN PRN IV 07/30/16 23:45 08/29/16 23:44 Ipratropium [place] (Atrovent Hfa Inhaler) 4 puffs QIDR INH 07/31/16 16:00 08/30/16 15:59 08/01/16 07:54 4 PUFFS Albuterol (Ventolin Hfa Inhaler) 4 puffs QIDR INH 07/31/16 16:00 08/30/16 15:59 08/01/16 07:54 4 PUFFS Escitalopram Oxalate (Lexapro Oral Soln) 20 mg QAM PEG 08/01/16 09:00 08/31/16 08:59 08/01/16 07:54 20 MG Insulin Glargine (Lantus Solostar Pen) 20 unit QPM SC 08/01/16 21:00 08/31/16 20:59 Insulin Aspart (novoLOG ASPART) tube feeds = 54 g of C... ACHS DC 08/01/16 11:00 08/29/16 17:59 08/01/16 09:38 5 UNITS I & O: 24-Hour Column 08/01/16 08:00 Intake Total 1976 ml Output Total 1075 ml Balance 901 ml Vital Signs: Date Time Temp Pulse Resp B/P Pulse Ox O2 Delivery O2 Flow Rate FiO2 08/01/16 09:26 37.2 84 22 139/67 94 Mechanical Ventilator 28 08/01/16 07:54 28 08/01/16 07:30 Mechanical Ventilator 2.0 08/01/16 07:30 28 08/01/16 07:30 37.2 88 16 132/60 95 Mechanical Ventilator 28 08/01/16 06:00 88 16 113/47 95 Mechanical Ventilator 35 08/01/16 05:22 35 08/01/16 04:00 36.4 90 17 133/52 95 Mechanical Ventilator 35 08/01/16 04:00 35 08/01/16 04:00 35 08/01/16 02:00 96 14 134/55 95 Mechanical Ventilator 35 08/01/16 01:56 35 08/01/16 00:01 37.0 97 14 137/57 96 Mechanical Ventilator 35 08/01/16 00:00 35 08/01/16 00:00 35 07/31/16 22:57 35 07/31/16 22:00 107 187/83 97 Mechanical Ventilator 35 07/31/16 20:24 35 07/31/16 20:00 35 07/31/16 20:00 37.0 85 14 140/71 96 Mechanical Ventilator 35 07/31/16 20:00 35 07/31/16 18:23 35 07/31/16 18:00 87 14 137/61 96 Mechanical Ventilator 35 07/31/16 16:00 35 07/31/16 16:00 37.2 93 14 143/63 95 Mechanical Ventilator 35 07/31/16 16:00 35 07/31/16 15:51 35 07/31/16 15:35 96 15 93 Mechanical Ventilator 35 07/31/16 14:00 85 14 123/62 93 Mechanical Ventilator 35 07/31/16 12:00 35 07/31/16 12:00 35 07/31/16 12:00 37.2 85 14 126/56 93 Mechanical Ventilator 35 07/31/16 10:55 35 07/31/16 10:00 98 14 127/66 90 Mechanical Ventilator 35 Laboratory Results: Last 24 Hours Test 07/31/16 11:40 07/31/16 17:38 07/31/16 21:50 07/31/16 23:47 Bedside Glucose 204 mg/dl 277 mg/dl 300 mg/dl 297 mg/dl Test 08/01/16 05:10 08/01/16 06:25 White Blood Count 17.68 K/uL Red Blood Count 3.60 M/uL Hemoglobin 10.4 g/dL Hematocrit 35.1 % Mean Corpuscular Volume 97.5 fL Mean Corpuscular Hemoglobin 28.9 pg Mean Corpuscular Hemoglobin Concent 29.6 g/dl Platelet Count 209 K/uL Mean Platelet Volume 9.3 fL Neutrophils (%) (Auto) 71.8 % Lymphocytes (%) (Auto) 21.5 % Monocytes (%) (Auto) 5.9 % Eosinophils (%) (Auto) 0.1 % Basophils (%) (Auto) 0.2 % Neutrophils # (Auto) 12.70 K/uL Lymphocytes # (Auto) 3.80 K/uL Monocytes # (Auto) 1.05 K/uL Eosinophils # (Auto) 0.02 K/uL Basophils # (Auto) 0.03 K/uL RDW Standard Deviation 68.6 fL RDW Coefficient of Variation 19.4 % Immature Granulocyte % (Auto) 0.5 % Immature Granulocyte # (Auto) 0.08 K/uL Sodium Level 132 mmol/L Potassium Level 4.3 mmol/L Chloride Level 95 mmol/L Carbon Dioxide Level 30 mmol/L Anion Gap 7.0 mmol/L Blood Urea Nitrogen 54 mg/dl Creatinine 0.86 mg/dl Est Creatinine Clear Calc Drug Dose 52.1 ml/min Estimated GFR () 79.9 Estimated GFR (Non- 68.9 BUN/Creatinine Ratio 62.3 Random Glucose 268 mg/dl Calcium Level 8.7 mg/dl Phosphorus Level 4.2 mg/dl Magnesium Level 2.8 mg/dl Total Bilirubin 0.2 mg/dl Aspartate Amino Transf (AST/SGOT) 15 U/L Alanine Aminotransferase (ALT/SGPT) 23 U/L Alkaline Phosphatase 140 U/L Total Protein 8.2 gm/dl Albumin 2.3 gm/dl Globulin 5.9 gm/dl Albumin/Globulin Ratio 0.4 Bedside Glucose 269 mg/dl
[2016-08-01] MEDS ORDERED: [UNRECOGNIZED DRUG - REMARK] PRN (10:45)
[2016-08-01] MEDS ORDERED: CASPOFUNGIN INJ 70 MG in SODIUM CHLORIDE 0.9% 250ML 250 ML IV SCH (11:00)
[2016-08-01] MEDS ORDERED: TIGEcycline INJ 100 MG in DEXTROSE 5% 100ML 100 ML IV ONE (11:15)
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
[2016-08-01] MEDS: AMPHOTERICIN B IRRIGATION INJ 50 MG in STERILE WATER 1000 ML 1,000 ML IR SCH (13:43)
[2016-08-01] MEDS: ACETAMINOPHEN SOLN 650MG/20.3 ML UDC PEG PRN ×2 (15:47→23:22)
[2016-08-01] MEDS: INSULIN GLARGINE SOLOSTAR 100 UNITS/ML 3 ML PEN SC SCH (17:26)
[2016-08-01] MEDS: FLUCONAZOLE SUSP 100 MG/10 ML UDP PEG SCH (20:47)
[2016-08-01] MEDS: LIDODERM (LIDOCAINE) PATCH 5% TD SCH (20:50)
[2016-08-01] MEDS: BISACODYL 10 MG SUPP PR SCH (20:56)
[2016-08-01] MEDS ORDERED: INSULIN GLARGINE SOLOSTAR 100 UNITS/ML 3 ML PEN SC SCH (21:00)
[2016-08-01] MEDS: TIGEcycline INJ 50 MG in DEXTROSE 5% 100ML 100 ML IV SCH (21:10)
[2016-08-01] MEDS: MELATONIN 3 MG TAB PO PRN (23:22)
[2016-08-02] VITALS (25 sets, daily range): BP systolic 105–178; BP diastolic 46–101; PULSE 77–104; TEMP 36.7–36.8; O2SAT 94–100
[2016-08-02] MEDS: ONDANSETRON INJ 2 MG/ML 2 ML VIAL IV PRN ×4 (05:06→22:39)
[2016-08-02] MEDS: INSULIN ASPART 100 UNITS/ML 3 ML PEN SC SCH ×5 (05:11→23:42)
[2016-08-02] MEDS: BISACODYL 10 MG SUPP PR SCH (05:12)
[2016-08-02] MEDS: HEPARIN SOD 5000 UNIT/0.5 ML CARP SQ SCH ×3 (05:12→20:54)
[2016-08-02 06:15] LABS: HEMATOCRIT 34.4 % (37-47); MEAN CELL VOLUME 96.4 fL (80-100); MEAN CORPUSCULAR HEMOGLOBIN 29.7 pg (25-34); MEAN CORPUSCULAR HGB CONC 30.8 g/dl (32-36); MEAN PLATELET VOLUME 9.8 fL (7.4-10.4); PLATELET COUNT 225 K/uL (130-400); RED BLOOD COUNT 3.57 M/uL (4.2-5.4)
[2016-08-02 06:54] LABS: BUN/CREATININE RATIO 93.6 (10-20); CALCIUM 8.6 mg/dl (8.5-10.1); CREATININE 0.85 mg/dl (0.60-1.20); MAGNESIUM 3.1 mg/dl (1.8-2.4); PHOSPHORUS 4.2 mg/dl (2.5-4.9); POTASSIUM 4.3 mmol/L (3.5-5.1)
[2016-08-02] MEDS: IPRATROPIUM BROMIDE HFA INHALER INH SCH ×4 (07:30→20:22)
[2016-08-02] MEDS: ALBUTEROL HFA 8 GM INHALER INH SCH ×4 (07:30→20:22)
[2016-08-02] MEDS: ERTAPENEM IV 1 GM in SODIUM CHLOR 0.9% AD-VAN 50ML IV SCH (07:35)
--- NOTE | 2016-08-02 07:41 | DIAGNOSTIC IMAGING REPORT ---
CHEST ONE VIEW PORTABLE CLINICAL HISTORY: hypoxia dyspnea COMPARISON STUDY: 08/01/2016 FINDINGS: Tracheostomy tube in good position. Central catheters. Vena cava. A parenchymal infiltrate left base. Right lung is considered generally clear. IMPRESSION: Developing parenchymal infiltrate left base. All remaining tubes and lines are in good position Electronically signed by: Pollo Sultana M.D. 08/02/2016 7:39 AM Dictated Date/Time: 08/02/2016 7:38 AM
[2016-08-02] MEDS: TIGEcycline INJ 50 MG in DEXTROSE 5% 100ML 100 ML IV SCH ×2 (08:14→20:30)
--- NOTE | 2016-08-02 08:41 | History & Physical Bridge Note ---
H&P Re-Evaluation Bridge Note: I have examined the patient, reviewed the History & Physical and in the interval since the performance of the History & Physical I have noted the following changes of clinical significance: No changes noted
--- NOTE | 2016-08-02 08:42 | Procedure Note ---
Pre-Mod Sedation Assessment General Date of Moderate Sedation: Aug 02, 2016. Vital Signs: Vital Signs Past 12 Hours Date Time Temp Pulse Resp B/P Pulse Ox O2 Delivery O2 Flow Rate FiO2 08/02/16 06:00 81 15 133/65 95 Mechanical Ventilator 35 08/02/16 05:38 35 08/02/16 04:00 35 08/02/16 04:00 Mechanical Ventilator 35 08/02/16 04:00 36.8 85 16 131/62 95 Mechanical Ventilator 35 08/02/16 02:34 35 08/02/16 02:00 85 18 132/55 96 Mechanical Ventilator 35 08/02/16 00:01 36.8 89 19 139/61 96 Mechanical Ventilator 35 08/01/16 23:59 35 08/01/16 23:59 Mechanical Ventilator 35 08/01/16 22:52 35 08/01/16 22:00 86 19 125/75 95 Mechanical Ventilator 35 Review Cardiovascular: regular rate, rhythm, no gallop, no murmur Abdomen: normal bowel sounds, non tender, soft Lungs: + pertinent finding (Tracheostomy in place. Pt is on ventilator. Bilateral expiratory wheeze. Good air movement. No respiratory distress. ) Pre-Sedation Airway Assessment Oral Cavity: WNL Smoking Status: Never Smoker Mallampati Classification: Class III Procedure Planning Contraindications-for Mod Sed: None Yes Notes Patient is intubated via tracehostomy in the ICU The planned sedation has been discussed with the patient and consent obtained. I have identified the patient, determined the appropriateness of sedation and have assessed the patient immediately prior to the procedure. All medicine(s) and interventions are by my order.
[2016-08-02] MEDS ORDERED: PROPOFOL IV EMULSION 10 MG/ML 100 ML VIAL IV ONE (08:50)
--- NOTE | 2016-08-02 09:09 | Procedure Note ---
Post-Moderate Sedation Plan General Date of Moderate Sedation Aug 02, 2016. Vital Signs: Vital Signs Past 12 Hours Date Time Temp Pulse Resp B/P Pulse Ox O2 Delivery O2 Flow Rate FiO2 08/02/16 06:00 81 15 133/65 95 Mechanical Ventilator 35 08/02/16 05:38 35 08/02/16 04:00 35 08/02/16 04:00 Mechanical Ventilator 35 08/02/16 04:00 36.8 85 16 131/62 95 Mechanical Ventilator 35 08/02/16 02:34 35 08/02/16 02:00 85 18 132/55 96 Mechanical Ventilator 35 08/02/16 00:01 36.8 89 19 139/61 96 Mechanical Ventilator 35 08/01/16 23:59 35 08/01/16 23:59 Mechanical Ventilator 35 08/01/16 22:52 35 08/01/16 22:00 86 19 125/75 95 Mechanical Ventilator 35 Review - Discharge Plan Post Moderate Sedation Plan: On clinical assessment, the patient appears to have tolerated the conscious sedation without complications. Patient is recovering as anticipated. continue to monitor in the ICU
--- NOTE | 2016-08-02 09:12 | Bronchoscopy Procedure Note ---
Bronchoscopy Procedure Note Procedure: Bronchoscopy, conscious sedation, Consent: Obtained through the patient placed into the chart Preprocedural diagnosis: Postprocedural diagnosis: Start time: End time: Total time: Analgesia: 2% liquid lidocaine: Via bronchoscopy Sedation: Propofol: 10cc Procedure: The Magnasense video bronchoscope was used for this procedure and passed through the patient's tracheostomy tube Trachea/[place]: Anatomically within normal limits Right bronchial tree: Right mainstem bronchus: Anatomically within normal limits Right upper lobe: Anatomically within normal limits Bronchus intermedius: Anatomically within normal limits Right middle lobe: Anatomically within normal limits Right lower lobe: Anatomically within normal limits Findings: No significant findings noted Left bronchial tree: Left mainstem bronchus: Anatomically within normal limits with smiley secretions starting at the glenis Left upper lobe: Anatomically within normal limits with smiley secretions Lingula: Anatomically within normal limits with smiley secretions Left lower lobe: Anatomically within normal limits, obstructed with smiley secretions Findings: diffuse smiley secretions with complete obstruction of the LLL Bronchial alveolar lavage: LLL 60cc with 40cc returned Complications: None Follow-up: Continue to monitor in the ICU
[2016-08-02] MEDS ORDERED: NURSING VERBAL MED ORDER ONE ×2 (09:30→12:30)
--- NOTE | 2016-08-02 09:45 | Critical Care Progress Note ---
Critical Care Progress Note Date of Service Aug 02, 2016. ICU Day ICU Day Number: [address] moses Subjective Patient is resting comfortably in bed and no hypoxic episodes overnight Did have a hypoxic episode yesterday during the day and after removing secretions she had some improvement however there was a ventilator malfunction Patient needed to have manual ventilation while machine was changed Denies pain Limited ROS because of the patient tracheostomy Objective General: resting in bed, alert Skin: no rashes noted, no suspicious lesions, bandage on a lesion on right buttock CVS: S1/ S2 noted, RRR, no rubs/ murmurs noted, no cyanosis RVS: decreased bilat bases, tracheostomy in place, no resp distress, coarse breath sounds throughout ENT: inspection WNL Neck: inspection WNL, full ROM of neck, tracheostomy noted ABD: BSx4 but hypoactive, distended abd, non tender MSK: atrophy of limbs; BL otherwise inspection WNL NVS: PERRL, EOMI Lymph: No lymphadenopathy palpable Current SOFA Score SOFA Score Response (Comments) Value SaO2 / FIO2 < 67 4 Platelets (x10) < 150 1 [place] Coma Score 13 - 14 1 Level of Hypotension No Hypotension 0 Total 6 Assessment & Plan 1. acute on chronic respiratory failure in a ventilator dependent individual secondary to mechanical obstruction from mucus plug 2. Aspiration PNA as indicated by progressive left pulmonary infiltrate; bronchoscopy today 3. metabolic encephalopathy secondary to sedative- improved 4. new onset seizure, no significant changes in MRI- no further seizures 5. Chronic UTI/ chronic hernandez - Yeast not nara has been cultured from urine; treated with caspofungin and amphotericin 6. Hyponatremia 7. Hyperphosphatemia/ Hypermagnesemia - improving 8. Chronic suppressive therapy with alternating ertapenem, fluconazole and gentamicin 9. HTN 10. DMII 11. H/O CVA NVS - Lamictal as per Neuro rec - brain MRI - no acute findings - continue plavix, d/c ASA - continue Neurontin for pain control - continue Buspar and Lexapro - appreciate pain mx consult rec - plan is to refill intrathecal cath this week while on inpatient [facility] - will monitor on tele - continue amlodipine RVS - currently on hospital ventilator RR14, TV 500, PEEP 0 Fi02 35 - plan is to hopefully transition to home monitor once on home vent settings - She is apparently having arranged a new ventilator but may not be available during this hospitalizations; will follow with case mx - Pulm consult- bronchoscopy today - will regularly check status of cuff because most likely cuff leak - sputum cx- final pending - duoneb q 6 h tasha GI - Resume tube feedings - lytes are improving so will continue home regimen - miralax and doculax - monitor I&O ENDO - insulin ISS and 20 unit lantus pm - receives 54G of CHO/ bolus - BSG AC HS FEN - continue to monitor daily BMP HEME - hgb 11.8 and BL for patient - elevated WBC, left shift - continue to trend ID - continue ertapenem and fluconazole - ID consult- appreciate input - Tigecycline - Amphotericin and Caspofungin Resident Physician Supervision Note/Gynaecological Oncologist Attending I interviewed and examined the patient. Discussed with Dr. Trimble and agree with findings and plan as documented in the note. Any exceptions or clarifications are listed here: The patient's care was discussed in detail on multidisciplinary round today. I have also reviewed VS, I/O, notes, meds, labs, micro, images and other reports. Florence was awake, alert and conversing with me today after her bronch. She looks much more comfortable and less anxious today. She is coughing up scant yellow secretions and remains on 35% FIO2, no peep. Bronch revealed secretions in LLL and cxr this morning showed progression of the LLL infiltrate. She remains on Ertapenum, Ampho B bladder washes, Caspofungin, Fluconozole, and Tigecycline. She is hyperglycemic and insulin is being adjusted. Tolerating tube feeds. No seizures. Jamia from Case Management has been working on arrangements for a new home ventilator which has been a challenge. I think she would benefit from peep but goal is still to get her back to her known home ventilator settings with peep 0 since the timeframe for getting a new ventilator is unclear. Documented By: Aleyda Moses Consults & Procedures Consultants: Dr Eid- Neuro Sendy Martinez- ID Dr Luther- Pulm Procedures: NA Data Medications: Current Inpatient Medications Medications (Trade) Dose Ordered Sig/Tasha Route Start Time Stop Time Status Last Admin Dose Admin Dipyridamole/ Aspirin (Aggrenox 200MG/ 25MG Cap) 1 cap BID PO 07/30/16 09:00 08/29/16 08:59 08/01/16 20:49 1 CAP Bisacodyl (Dulcolax Supp) 10 mg SuMoWeFr@2100 [place] 07/30/16 21:00 08/29/16 20:59 07/30/16 21:37 10 MG Phenazopyridine HCl (Pyridium Tab) 200 mg BID PRN PO 07/30/16 02:15 08/29/16 02:14 07/30/16 10:40 200 MG Miscellaneous Information (Order Awaiting Action) 1 ea QS N/A 07/30/16 05:45 08/29/16 05:44 Heparin Sodium (Porcine) (Heparin Sq 5000 Unit/0.5ml) 5,000 unit Q8 SQ 07/30/16 06:00 08/29/16 05:59 08/02/16 05:12 5,000 UNIT Ondansetron HCl (Zofran Inj) 4 mg Q6H PRN IV 07/30/16 02:15 08/29/16 02:14 08/02/16 05:06 4 MG Miscellaneous (Iv Fluids Completed) 1 ea PRN PRN N/A 07/30/16 03:15 07/30/17 03:14 Glucose (Glucose 40% Gel) 15-30 GRAMS 15 GRAMS... UD PRN PO 07/30/16 03:30 08/29/16 03:29 Glucose (Glucose Chew Tab) 4-8 Tablets 4 Tabl... UD PRN PO 07/30/16 03:30 08/29/16 03:29 Dextrose (Dextrose 50% 50ML Syringe) 25-50ML OF 50% DW IV FOR... UD PRN IV 07/30/16 03:30 08/29/16 03:29 Glucagon 1 mg 1 mg UD PRN SQ 07/30/16 03:30 08/29/16 03:29 Ertapenem/Sodium Chloride (Invanz Iv/Nss Ad-Van 50ml) 50 ml @ 100 mls/hr Q24H IV 07/31/16 08:00 08/10/16 07:59 08/02/16 07:35 100 MLS/HR Bisacodyl (Dulcolax Supp) 10 mg TuTh@0530 [place] 07/31/16 05:30 08/30/16 05:29 07/31/16 05:59 10 MG Enteral Nutritional Formula (Prosource No Carb) 30 ml TID@0600,1200,1800 PEG 07/30/16 18:00 08/29/16 17:59 08/01/16 17:14 30 ML Lidocaine (Lidoderm Patch 5%) 2 patch DAILY@2100 [place] 07/30/16 21:00 08/29/16 20:59 08/01/16 20:50 2 PATCH Miscellaneous (Remove Lidoderm Patch) 1 ea DAILY@0900 N/A 07/31/16 09:00 08/30/16 08:59 08/01/16 08:42 1 EA Sterile Water (Tube Feeding Water Flush) 1 ea TID@0600,1200,1800 PEG 07/30/16 18:00 08/29/16 17:59 08/01/16 17:14 1 EA Acetaminophen (Tylenol Soln) 650 mg Q4H PRN PEG 07/30/16 18:15 08/29/16 18:14 08/01/16 23:22 650 MG Allopurinol (Zyloprim Tab) 100 mg DAILY PEG 07/31/16 09:00 08/30/16 08:59 08/01/16 07:53 100 MG Al Hydrox/Mg Hydrox/Simethicone (Maalox Max Susp) 15 ml Q4H PRN PEG 07/30/16 18:15 08/29/16 18:14 08/01/16 09:46 15 ML Amlodipine Besylate (Norvasc Tab) 3.75 mg DAILY PEG 07/31/16 09:00 08/30/16 08:59 08/01/16 08:48 3.75 MG Buspirone HCl (BusPAR TAB) 7.5 mg BID PEG 07/30/16 21:00 08/29/16 20:59 08/01/16 20:46 7.5 MG Clopidogrel Bisulfate (plAVix TAB) 75 mg DAILY PEG 07/31/16 09:00 08/30/16 08:59 08/01/16 07:53 75 MG Fluconazole (Diflucan Susp) 100 mg QPM PEG 07/30/16 21:00 08/09/16 20:59 08/01/16 20:47 100 MG Gabapentin (Neurontin) 100 mg QAM PEG 07/31/16 09:00 08/30/16 08:59 08/01/16 07:57 100 MG Gabapentin (Neurontin) 200 mg 1600 PEG 07/30/16 16:00 08/29/16 15:59 08/01/16 15:48 200 MG Lactobacillus Acidophilus (Floranex Tab) 4 tab TIDM PEG 07/30/16 16:30 08/29/16 16:29 08/01/16 16:14 4 TAB Pentosan Polysulfate Sodium (Elmiron) 100 mg BID PEG 07/30/16 21:00 08/29/16 20:59 08/01/16 20:47 100 MG Polyethylene (Miralax Powder Packet) 17 gm DAILY PRN PEG 07/31/16 09:00 08/30/16 08:59 Gabapentin (Neurontin) 600 mg HS PEG 07/30/16 21:00 08/29/16 20:59 08/01/16 20:53 600 MG Lorazepam (Ativan Tab) 0.5 mg DAILY PRN PEG 07/30/16 16:45 08/29/16 16:44 Magnesium Hydroxide (Milk Of Magnesia Susp) 30 ml Q12H PRN PEG 07/30/16 16:45 08/29/16 16:44 Lamotrigine (Lamictal Tab) 25 mg BID PEG 07/30/16 21:00 08/06/16 23:59 08/01/16 20:48 25 MG Lamotrigine (Lamictal Tab) 50 mg BID PEG 08/07/16 09:00 09/06/16 08:59 Non-Formulary Medication (Non-Formulary Patient'S Own Med) 1 ea TID PEG 07/30/16 21:00 08/29/16 20:59 08/01/16 20:55 1 EA Sterile Water (Tube Feeding Water Flush) 1 ea TID PEG 07/30/16 21:00 08/29/16 20:59 08/01/16 20:55 1 EA Lifitegrast (Xiidra 5% Oph Soln) 1 drop BID OP 07/30/16 21:00 08/29/16 20:59 08/01/16 20:45 1 DROP Heparin Sodium (Porcine) (Heparin 100 Unit/ml 5ml Flush) 5 ml PRN PRN IV 07/30/16 23:45 08/29/16 23:44 Ipratropium [place] (Atrovent Hfa Inhaler) 4 puffs QIDR INH 07/31/16 16:00 08/30/16 15:59 08/02/16 07:30 4 PUFFS Albuterol (Ventolin Hfa Inhaler) 4 puffs QIDR INH 07/31/16 16:00 08/30/16 15:59 08/02/16 07:30 4 PUFFS Escitalopram Oxalate (Lexapro Oral Soln) 20 mg QAM PEG 08/01/16 09:00 08/31/16 08:59 08/01/16 07:54 20 MG Insulin Aspart tube feeds = 54 g of C... ACHS SC 08/01/16 11:00 08/29/16 17:59 08/02/16 07:54 4 UNITS Tigecycline 50 mg/ Dextrose 105 ml @ 200 mls/hr Q12 IV 08/01/16 22:00 08/08/16 21:59 08/02/16 08:14 200 MLS/HR Caspofungin/ Sodium Chloride (Cancidas Inj/ Nss 250ml) 260 ml @ 250 mls/hr DAILY@0900 IV 08/02/16 09:00 08/12/16 08:59 Miscellaneous Information 1 ea 1 ea UD PRN N/A 08/01/16 10:45 08/31/16 10:44 Amphotericin B/ Sterile Water (Fungizone Irrigation Inj/ Sterile Water 1000 ml) 1,000 ml @ 41.667 mls/ hr DAILY@1200 IR 08/01/16 12:00 08/06/16 11:59 08/01/16 13:43 41.667 MLS/HR Insulin Aspart (novoLOG ASPART) SLIDING SCALE G... 0000,0400 [place] 08/02/16 00:00 09/01/16 00:00 08/02/16 05:11 2 UNITS Insulin Glargine (Lantus Solostar Pen) 20 unit HS MS 08/01/16 17:00 08/31/16 16:59 08/01/16 17:26 20 UNIT Miscellaneous Information (Nursing Verbal Med Order) 1 ea ONE ONCE N/A 08/02/16 09:30 08/02/16 09:31 UNV I & O: 24-Hour Column 08/02/16 08:00 Intake Total 3128 ml Output Total 2150 ml Balance 978 ml Vital Signs: Date Time Temp Pulse Resp B/P Pulse Ox O2 Delivery O2 Flow Rate FiO2 08/02/16 09:09 79 14 119/58 100 08/02/16 09:07 78 14 126/60 100 08/02/16 09:05 78 14 125/59 100 08/02/16 09:03 78 14 124/63 100 Mechanical Ventilator 100 08/02/16 09:01 78 15 130/63 100 Mechanical Ventilator 100 08/02/16 08:58 78 132/63 100 Mechanical Ventilator 100 08/02/16 08:57 78 128/61 100 Mechanical Ventilator 100 08/02/16 08:55 84 20 146/65 100 Mechanical Ventilator 100 08/02/16 08:54 83 18 139/76 100 Mechanical Ventilator 100 08/02/16 08:01 36.8 80 24 143/56 97 Mechanical Ventilator 35 08/02/16 08:00 35 08/02/16 07:01 78 16 141/58 96 Mechanical Ventilator 35 08/02/16 06:00 81 15 133/65 95 Mechanical Ventilator 35 08/02/16 05:38 35 08/02/16 04:00 35 08/02/16 04:00 Mechanical Ventilator 35 08/02/16 04:00 36.8 85 16 131/62 95 Mechanical Ventilator 35 08/02/16 02:34 35 08/02/16 02:00 85 18 132/55 96 Mechanical Ventilator 35 08/02/16 00:01 36.8 89 19 139/61 96 Mechanical Ventilator 35 08/01/16 23:59 35 08/01/16 23:59 Mechanical Ventilator 35 08/01/16 22:52 35 08/01/16 22:00 86 19 125/75 95 Mechanical Ventilator 35 08/01/16 20:00 96 Mechanical Ventilator 35 08/01/16 20:00 36.8 84 20 123/67 97 Mechanical Ventilator 35 08/01/16 20:00 35 08/01/16 19:43 35 08/01/16 18:17 35 08/01/16 18:04 37.4 90 24 132/60 96 Mechanical Ventilator 35 08/01/16 16:00 35 08/01/16 16:00 Mechanical Ventilator 2.0 08/01/16 16:00 36.7 74 24 143/60 91 Mechanical Ventilator 35 08/01/16 15:31 35 08/01/16 14:05 35 08/01/16 14:01 93 20 178/75 96 08/01/16 14:00 93 20 96 08/01/16 13:30 36.4 88 22 158/76 94 Mechanical Ventilator 35 08/01/16 13:00 89 15 147/71 94 08/01/16 12:00 85 18 139/72 96 08/01/16 11:30 28 08/01/16 11:30 Mechanical Ventilator 2.0 08/01/16 11:30 36.7 88 22 141/63 94 Mechanical Ventilator 28 08/01/16 11:01 87 21 141/63 75 08/01/16 11:00 88 33 94 08/01/16 10:50 35 08/01/16 10:00 90 18 173/89 100 Laboratory Results: Last 24 Hours Test 08/01/16 11:17 08/01/16 15:27 08/01/16 21:00 08/01/16 23:30 Bedside Glucose 288 mg/dl 295 mg/dl 286 mg/dl 263 mg/dl Test 08/02/16 04:18 08/02/16 05:50 Bedside Glucose 218 mg/dl White Blood Count 14.60 K/uL Red Blood Count 3.57 M/uL Hemoglobin 10.6 g/dL Hematocrit 34.4 % Mean Corpuscular Volume 96.4 fL Mean Corpuscular Hemoglobin 29.7 pg Mean Corpuscular Hemoglobin Concent 30.8 g/dl RDW Standard Deviation 68.3 fL RDW Coefficient of Variation 19.2 % Platelet Count 225 K/uL Mean Platelet Volume 9.8 fL Sodium Level 134 mmol/L Potassium Level 4.3 mmol/L Chloride Level 97 mmol/L Carbon Dioxide Level 28 mmol/L Anion Gap 9.0 mmol/L Blood Urea Nitrogen 80 mg/dl Creatinine 0.85 mg/dl Est Creatinine Clear Calc Drug Dose 52.8 ml/min Estimated GFR () 81.0 Estimated GFR (Non- 69.9 BUN/Creatinine Ratio 93.6 Random Glucose 254 mg/dl Calcium Level 8.6 mg/dl Phosphorus Level 4.2 mg/dl Magnesium Level 3.1 mg/dl
[2016-08-02] MEDS: AMLODIPINE BESYLATE 5 MG TAB PEG SCH (09:49)
[2016-08-02] MEDS: ALLOPURINOL 100 MG TAB PEG SCH (09:50)
[2016-08-02] MEDS: CLOPIDOGREL BISULFATE 75 MG TAB PEG SCH (09:50)
[2016-08-02] MEDS: ESCITALOPRAM OXALATE ORAL SOLN 5 MG/5 ML PEG SCH (09:50)
[2016-08-02] MEDS: PENTOSAN POLYSULFATE SODIUM 100 MG CAP PEG SCH ×2 (09:51→20:36)
[2016-08-02] MEDS: BusPIRone 15 MG TAB PEG SCH ×2 (09:51→20:37)
[2016-08-02] MEDS: LACTOBACILLUS ACIDOPHILUS (FLORANEX) TAB PEG SCH ×3 (09:53→20:36)
[2016-08-02] MEDS: DIPYRIDAMOLE/ASPIRIN CAP PO SCH ×2 (09:53→20:36)
[2016-08-02] MEDS: PROSOURCE NOCARB 30ML/PKT PEG SCH ×3 (09:54→20:40)
[2016-08-02] MEDS: TUBE FEEDING WATER FLUSH PEG SCH ×6 (09:54→20:42)
[2016-08-02] MEDS: CASPOFUNGIN INJ 50 MG in SODIUM CHLORIDE 0.9% 250ML 250 ML IV SCH (09:54)
[2016-08-02] MEDS: ENTERAL NUTRITION FORMULA PEG SCH ×3 (10:04→20:42)
[2016-08-02] MEDS: GABAPENTIN 250 MG/5 ML 470 ML BTL PEG SCH ×3 (10:04→20:35)
[2016-08-02] MEDS: LIFITEGRAST 5% OP SCH ×2 (10:05→20:38)
[2016-08-02] MEDS: PROPYLENE GLYCOL 0.6% (OPHTH) 15 DROP/ML 10ML BTL OPB SCH (10:05)
[2016-08-02] MEDS: [UNRECOGNIZED DRUG - SUPPLY] OP SCH ×2 (10:06→20:38)
[2016-08-02] MEDS: ACETAMINOPHEN SOLN 650MG/20.3 ML UDC PEG PRN (11:23)
[2016-08-02] MEDS: AMPHOTERICIN B IRRIGATION INJ 50 MG in STERILE WATER 1000 ML 1,000 ML IR SCH (12:11)
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
[2016-08-02] MEDS: LIDODERM (LIDOCAINE) PATCH 5% TD SCH (20:31)
[2016-08-02] MEDS: FLUCONAZOLE SUSP 100 MG/10 ML UDP PEG SCH (20:36)
[2016-08-02] MEDS: [UNRECOGNIZED DRUG - OTHER] OP SCH (20:38)
[2016-08-02] MEDS: INSULIN GLARGINE SOLOSTAR 100 UNITS/ML 3 ML PEN SC SCH (20:54)
[2016-08-02] MEDS: MELATONIN 3 MG TAB PO PRN (23:35)
[2016-08-03] VITALS (14 sets, daily range): BP systolic 122–159; BP diastolic 55–73; PULSE 81–94; TEMP 36.7–36.8; O2SAT 91–98
[2016-08-03] MEDS: INSULIN ASPART 100 UNITS/ML 3 ML PEN SC SCH ×5 (03:53→23:47)
[2016-08-03] MEDS: HEPARIN SOD 5000 UNIT/0.5 ML CARP SQ SCH ×3 (05:45→21:45)
[2016-08-03 06:08] LABS: BASO % 0.2 %; BASO ABS # 0.03 K/uL (0-0.2); COMPLETE YES; EOS % 0.3 %; IG% 0.4 %; LYMPH % 26.9 %; LYMPH ABS # 3.49 K/uL (1.2-3.4); MEAN CELL VOLUME 96.3 fL (80-100); MEAN CORPUSCULAR HEMOGLOBIN 29.5 pg (25-34); MEAN CORPUSCULAR HGB CONC 30.6 g/dl (32-36); MEAN PLATELET VOLUME 9.4 fL (7.4-10.4); MONO % 7.3 %; NEUT % 64.9 %; PLATELET COUNT 228 K/uL (130-400); RED BLOOD COUNT 3.53 M/uL (4.2-5.4); WHITE BLOOD COUNT 12.98 K/uL (4.8-10.8)
[2016-08-03 06:51] LABS: BUN/CREATININE RATIO 115.8 (10-20); CALCIUM 8.5 mg/dl (8.5-10.1); CREATININE 0.78 mg/dl (0.60-1.20); MAGNESIUM 3.3 mg/dl (1.8-2.4); POTASSIUM 4.2 mmol/L (3.5-5.1)
[2016-08-03 07:03] LABS: BETA-HYDROXYBUTYRATE 1.56 mg/dL (0.2-2.81)
--- NOTE | 2016-08-03 07:04 | DIAGNOSTIC IMAGING REPORT ---
CHEST ONE VIEW PORTABLE CLINICAL HISTORY: Hypoxia COMPARISON STUDY: 08/02/2016 FINDINGS: The heart remains mildly enlarged. There is a left subclavian central venous catheter and right subclavian A-Port catheter. There is a tracheostomy tube present. There are persistent airspace opacities within left mid and lower lung zone.[ An element of mild pulmonary vascular congestion is suspected. IMPRESSION: Stable findings. Mild cardiomegaly and suspected mild pulmonary vascular congestion. Persistent left mid and lower lung zone airspace opacities Electronically signed by: Viktor Whitfield M.D. 08/03/2016 7:02 AM Dictated Date/Time: 08/03/2016 7:00 AM
[2016-08-03] MEDS: ERTAPENEM IV 1 GM in SODIUM CHLOR 0.9% AD-VAN 50ML IV SCH (07:35)
[2016-08-03] MEDS: ONDANSETRON INJ 2 MG/ML 2 ML VIAL IV PRN ×3 (07:35→19:26)
[2016-08-03] MEDS: ALBUTEROL HFA 8 GM INHALER INH SCH ×4 (07:36→19:24)
[2016-08-03] MEDS: IPRATROPIUM BROMIDE HFA INHALER INH SCH ×4 (07:36→19:24)
[2016-08-03] MEDS: PROSOURCE NOCARB 30ML/PKT PEG SCH (07:37)
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
[2016-08-03] MEDS: ENTERAL NUTRITION FORMULA PEG SCH ×3 (07:46→20:00)
[2016-08-03] MEDS: TUBE FEEDING WATER FLUSH PEG SCH ×6 (07:47→21:19)
[2016-08-03] MEDS: LIFITEGRAST 5% OP SCH ×2 (07:49→21:47)
[2016-08-03] MEDS: [UNRECOGNIZED DRUG - SUPPLY] OP SCH ×2 (07:49→21:49)
[2016-08-03] MEDS: PROPYLENE GLYCOL 0.6% (OPHTH) 15 DROP/ML 10ML BTL OPB SCH (07:49)
[2016-08-03 08:08] LABS: PHOSPHORUS 5.2 mg/dl (2.5-4.9)
[2016-08-03] MEDS: TIGEcycline INJ 50 MG in DEXTROSE 5% 100ML 100 ML IV SCH ×2 (08:55→21:27)
[2016-08-03] MEDS: CASPOFUNGIN INJ 50 MG in SODIUM CHLORIDE 0.9% 250ML 250 ML IV SCH (08:56)
[2016-08-03] MEDS: GABAPENTIN 250 MG/5 ML 470 ML BTL PEG SCH ×3 (08:56→21:27)
[2016-08-03] MEDS: ESCITALOPRAM OXALATE ORAL SOLN 5 MG/5 ML PEG SCH (08:57)
[2016-08-03] MEDS: BusPIRone 15 MG TAB PEG SCH ×2 (08:58→21:25)
[2016-08-03] MEDS: PENTOSAN POLYSULFATE SODIUM 100 MG CAP PEG SCH ×2 (08:58→21:24)
[2016-08-03] MEDS: ALLOPURINOL 100 MG TAB PEG SCH (08:59)
[2016-08-03] MEDS: LACTOBACILLUS ACIDOPHILUS (FLORANEX) TAB PEG SCH ×3 (08:59→21:23)
[2016-08-03] MEDS ORDERED: LOPERAMIDE HCL 2 MG CAP PO SCH (09:00)
--- NOTE | 2016-08-03 09:03 | Critical Care Progress Note ---
Critical Care Progress Note Date of Service Aug 03, 2016. ICU Day ICU Day Number: [address] Moses Subjective Patient did not have any hypoxic episodes overnight States she feels about the same as yesterday ongoing diarrhea and worsening with antibiotics, starting to irritate the skin - patient has been having diarrhea since she started tube feedings however acute worsening Objective General: resting in bed, alert Skin: no rashes noted, no suspicious lesions, bandage on a lesion on right buttock CVS: S1/ S2 noted, RRR, no rubs/ murmurs noted, no cyanosis RVS: decreased bilat bases, tracheostomy in place, no resp distress, coarse breath sounds throughout, left sided crackles noted ENT: inspection WNL Neck: inspection WNL, full ROM of neck, tracheostomy noted ABD: BSx4 but hypoactive, distended abd, non tender MSK: atrophy of limbs; BL otherwise inspection WNL NVS: alert Current SOFA Score SOFA Score Response (Comments) Value SaO2 / FIO2 < 67 4 Platelets (x10) < 150 1 [place] Coma Score 13 - 14 1 Level of Hypotension No Hypotension 0 Total 6 Assessment & Plan 1. acute on chronic respiratory failure in a ventilator dependent individual secondary to mechanical obstruction from mucus plug 2. Aspiration PNA as indicated by progressive left pulmonary infiltrate; s/p bronchoscopy 3. metabolic encephalopathy secondary to sedative- improved 4. new onset seizure, no significant changes in MRI- no further seizures 5. Chronic UTI/ chronic hernandez - Yeast not nara has been cultured from urine; treated with caspofungin and amphotericin 6. Hyponatremia- resolved 7. Hyperphosphatemia/ Hypermagnesemia - improving 8. Elevated BUN 9. Chronic suppressive therapy with alternating ertapenem, fluconazole and gentamicin 10. HTN 11. DMII 12. H/O CVA NVS - Lamictal as per Neuro rec - brain MRI - no acute findings - continue plavix, d/c ASA - continue Neurontin for pain control - continue Buspar and Lexapro - appreciate pain mx consult rec - plan is to refill intrathecal cath this week while on inpatient CVS - will monitor on tele - continue amlodipine RVS - currently on hospital ventilator RR14, TV 500, PEEP 0 Fi02 30 - plan is to hopefully transition to home monitor once on home vent settings - She is apparently having arranged a new ventilator but may not be available during this hospitalizations; will follow with case mx - Pulm consult- bronchoscopy complete and washing culture pending - will regularly check status of cuff because most likely cuff leak - sputum cx- gram negative bacilli - duoneb q 6 h tasha GI - Resume tube feedings - Prosource added for additional protein however will d/c because of increasing BUN - fecal management system - miralax and doculax- held - Immodium prn - C diff cx again as worsening diarrhea - monitor I&O ENDO - insulin ISS and 22 unit lantus pm - receives 54G of CHO/ bolus - BSG AC HS FEN - continue to monitor daily BMP - continue to follow BUN HEME - hgb 11.8 and BL for patient - elevated WBC, left shift - continue to trend ID - continue ertapenem and fluconazole - ID consult- appreciate input - Tigecycline - Amphotericin and Caspofungin Resident Physician Supervision Note/Phytopathologist Attending I interviewed and examined the patient. Discussed with Dr. Trimble and agree with findings and plan as documented in the note. Any exceptions or clarifications are listed here: The patient's care was discussed in detail on multidisciplinary rounds today. I have reviewed the VS, I/O, notes, meds, labs, micro, imaging and other reports. Exam is significant for the patient appearing very comfortable and being more conversant. Lungs are coarse with decreased BS in L base. Abdomen round and soft, active BS. Skin warm and dry. We are treating gram negative pneumonia and she is having less sputum production. FIO2 has been weaned to 30% and she may be ready to place back on her home vent tomorrow. Primary service is communicating with pulmonology regarding settings for new vent at home. She remains on multiple anitbiotics and ID is following. She is having increased diarrhea, likely secondary to abx. Rather than change tube feeds to continuous or change the formulation ( which her caretakers are very partial to), will check C. Dif again and give immodium if neg. BUN has been increasing since admission. ? secondary to prosource added to facilitate wound healing. I don't think she's dry, she is not on steroids or TPN. No evidence of GIB. Will d/c prosource for now and place fecal management system to get a better idea of her stool losses. No seizure activity. Overall she is improving. Documented By: Aleyda Moses Consults & Procedures Consultants: Dr Eid- Neuro Sendy Martinez- ID Dr Luther- Pul Procedures: NA Data Medications: Current Inpatient Medications Medications (Trade) Dose Ordered Sig/Tasha Route Start Time Stop Time Status Last Admin Dose Admin Dipyridamole/ Aspirin (Aggrenox 200MG/ 25MG Cap) 1 cap BID PO 07/30/16 09:00 08/29/16 08:59 08/02/16 20:36 1 CAP Bisacodyl (Dulcolax Supp) 10 mg SuMoWeFr@2100 [place] 07/30/16 21:00 08/29/16 20:59 07/30/16 21:37 10 MG Phenazopyridine HCl (Pyridium Tab) 200 mg BID PRN PO 07/30/16 02:15 08/29/16 02:14 07/30/16 10:40 200 MG Heparin Sodium (Porcine) (Heparin Sq 5000 Unit/0.5ml) 5,000 unit Q8 SQ 07/30/16 06:00 08/29/16 05:59 08/03/16 05:45 5,000 UNIT Ondansetron HCl (Zofran Inj) 4 mg Q6H PRN IV 07/30/16 02:15 08/29/16 02:14 08/03/16 07:35 4 MG Miscellaneous (Iv Fluids Completed) 1 ea PRN PRN N/A 07/30/16 03:15 07/30/17 03:14 Glucose (Glucose 40% Gel) 15-30 GRAMS 15 GRAMS... UD PRN PO 07/30/16 03:30 08/29/16 03:29 Glucose (Glucose Chew Tab) 4-8 Tablets 4 Tabl... UD PRN PO 07/30/16 03:30 08/29/16 03:29 Dextrose (Dextrose 50% 50ML Syringe) 25-50ML OF 50% DW IV FOR... UD PRN IV 07/30/16 03:30 08/29/16 03:29 Glucagon 1 mg 1 mg UD PRN SQ 07/30/16 03:30 08/29/16 03:29 Ertapenem/Sodium Chloride (Invanz Iv/Nss Ad-Van 50ml) 50 ml @ 100 mls/hr Q24H IV 07/31/16 08:00 08/10/16 07:59 08/03/16 07:35 100 MLS/HR Bisacodyl (Dulcolax Supp) 10 mg TuTh@0530 [place] 07/31/16 05:30 08/30/16 05:29 07/31/16 05:59 10 MG Lidocaine (Lidoderm Patch 5%) 2 patch DAILY@2100 TD 07/30/16 21:00 08/29/16 20:59 08/02/16 20:31 2 PATCH Miscellaneous (Remove Lidoderm Patch) 1 ea DAILY@0900 N/A 07/31/16 09:00 08/30/16 08:59 08/03/16 07:45 1 EA Acetaminophen (Tylenol Soln) 650 mg Q4H PRN PEG 07/30/16 18:15 08/29/16 18:14 08/02/16 11:23 650 MG Allopurinol (Zyloprim Tab) 100 mg DAILY PEG 07/31/16 09:00 08/30/16 08:59 08/02/16 09:50 100 MG Al Hydrox/Mg Hydrox/Simethicone (Maalox Max Susp) 15 ml Q4H PRN PEG 07/30/16 18:15 08/29/16 18:14 08/01/16 09:46 15 ML Amlodipine Besylate (Norvasc Tab) 3.75 mg DAILY PEG 07/31/16 09:00 08/30/16 08:59 08/02/16 09:49 3.75 MG Buspirone HCl (BusPAR TAB) 7.5 mg BID PEG 07/30/16 21:00 08/29/16 20:59 08/02/16 20:37 7.5 MG Clopidogrel Bisulfate (plAVix TAB) 75 mg DAILY PEG 07/31/16 09:00 08/30/16 08:59 08/02/16 09:50 75 MG Fluconazole (Diflucan Susp) 100 mg QPM PEG 07/30/16 21:00 08/09/16 20:59 08/02/16 20:36 100 MG Gabapentin (Neurontin) 100 mg QAM PEG 07/31/16 09:00 08/30/16 08:59 08/02/16 10:04 100 MG Gabapentin (Neurontin) 200 mg 1600 PEG 07/30/16 16:00 08/29/16 15:59 08/02/16 15:43 200 MG Pentosan Polysulfate Sodium (Elmiron) 100 mg BID PEG 07/30/16 21:00 08/29/16 20:59 08/02/16 20:36 100 MG Polyethylene (Miralax Powder Packet) 17 gm DAILY PRN PEG 07/31/16 09:00 08/30/16 08:59 Gabapentin (Neurontin) 600 mg HS PEG 07/30/16 21:00 08/29/16 20:59 08/02/16 20:35 600 MG Lorazepam (Ativan Tab) 0.5 mg DAILY PRN PEG 07/30/16 16:45 08/29/16 16:44 Magnesium Hydroxide (Milk Of Magnesia Susp) 30 ml Q12H PRN PEG 07/30/16 16:45 08/29/16 16:44 Lamotrigine (Lamictal Tab) 25 mg BID PEG 07/30/16 21:00 08/06/16 23:59 08/02/16 20:36 25 MG Lamotrigine (Lamictal Tab) 50 mg BID PEG 08/07/16 09:00 09/06/16 08:59 Non-Formulary Medication (Non-Formulary Patient'S Own Med) 1 ea TID PEG 07/30/16 21:00 08/29/16 20:59 08/03/16 07:46 1 EA Sterile Water (Tube Feeding Water Flush) 1 ea TID PEG 07/30/16 21:00 08/29/16 20:59 08/03/16 07:47 1 EA Lifitegrast (Xiidra 5% Oph Soln) 1 drop BID OP 07/30/16 21:00 08/29/16 20:59 08/03/16 07:49 1 DROP Heparin Sodium (Porcine) (Heparin 100 Unit/ml 5ml Flush) 5 ml PRN PRN IV 07/30/16 23:45 08/29/16 23:44 Ipratropium [place] (Atrovent Hfa Inhaler) 4 puffs QIDR INH 07/31/16 16:00 08/30/16 15:59 08/03/16 07:36 4 PUFFS Albuterol (Ventolin Hfa Inhaler) 4 puffs QIDR INH 07/31/16 16:00 08/30/16 15:59 08/03/16 07:36 4 PUFFS Escitalopram Oxalate 20 mg 20 mg QAM PEG 08/01/16 09:00 08/31/16 08:59 08/02/16 09:50 20 MG Tigecycline 50 mg/ Dextrose 105 ml @ 200 mls/hr Q12 IV 08/01/16 22:00 08/08/16 21:59 08/02/16 20:30 200 MLS/HR Caspofungin/ Sodium Chloride (Cancidas Inj/ Nss 250ml) 260 ml @ 250 mls/hr DAILY@0900 IV 08/02/16 09:00 08/12/16 08:59 08/02/16 09:54 250 MLS/HR Miscellaneous Information 1 ea 1 ea UD PRN N/A 08/01/16 10:45 08/31/16 10:44 Amphotericin B/ Sterile Water (Fungizone Irrigation Inj/ Sterile Water 1000 ml) 1,000 ml @ 41.667 mls/ hr DAILY@1200 IR 08/01/16 12:00 08/06/16 11:59 08/02/16 12:11 41.667 MLS/HR Insulin Aspart (novoLOG ASPART) SLIDING SCALE G... 0000,0400 SC 08/02/16 00:00 09/01/16 00:00 08/03/16 03:53 5 UNITS Insulin Glargine (Lantus Solostar Pen) 20 unit HS SC 08/01/16 17:00 08/31/16 16:59 08/02/16 20:54 20 UNIT Non-Formulary Medication (Non-Formulary Patient'S Own Med) 1 ea HS OP 08/02/16 21:00 09/01/16 20:59 08/02/16 20:38 1 EA Lactobacillus Acidophilus (Floranex Tab) 4 tab TID@0900,1400,2100 PEG 08/02/16 14:00 09/01/16 13:59 08/02/16 20:36 4 TAB Enteral Nutritional Formula (Prosource No Carb) 30 ml TID@0900,1400,2100 PEG 08/02/16 14:00 09/01/16 13:59 08/03/16 07:37 30 ML Sterile Water (Tube Feeding Water Flush) 1 ea TID@0900,1400,2100 PEG 08/02/16 14:00 09/01/16 13:59 08/03/16 07:47 1 EA Insulin Aspart (novoLOG ASPART) tube feeds = 54 g of C... TID@0845,1345,2045 SC 08/02/16 13:45 09/01/16 13:44 08/03/16 07:44 16 UNITS I & O: 24-Hour Column 08/03/16 08:00 Intake Total 3277 ml Output Total 2150 ml Balance 1127 ml Vital Signs: Date Time Temp Pulse Resp B/P Pulse Ox O2 Delivery O2 Flow Rate FiO2 08/03/16 07:36 35 08/03/16 06:00 90 20 122/57 97 Mechanical Ventilator 35 08/03/16 05:45 35 08/03/16 04:00 35 08/03/16 04:00 Mechanical Ventilator 35 08/03/16 04:00 36.8 88 18 135/59 98 Mechanical Ventilator 35 08/03/16 02:25 35 08/03/16 02:00 89 20 143/59 96 Mechanical Ventilator 35 08/03/16 00:01 36.8 88 22 137/57 94 Mechanical Ventilator 35 08/02/16 23:59 35 08/02/16 23:59 Mechanical Ventilator 35 08/02/16 23:23 35 08/02/16 22:00 104 20 178/101 94 Mechanical Ventilator 35 08/02/16 20:23 35 08/02/16 20:00 Mechanical Ventilator 35 08/02/16 20:00 35 08/02/16 20:00 36.7 96 24 149/85 96 Mechanical Ventilator 35 08/02/16 18:20 35 08/02/16 15:57 36.8 85 23 123/59 96 Mechanical Ventilator 50 08/02/16 15:57 96 Mechanical Ventilator 50 08/02/16 15:57 35 08/02/16 14:44 35 08/02/16 14:00 80 28 139/74 96 Mechanical Ventilator 50 08/02/16 12:10 100 08/02/16 12:00 36.8 82 23 105/46 99 Mechanical Ventilator 50 08/02/16 12:00 99 Mechanical Ventilator 50 08/02/16 11:00 83 23 141/62 100 Mechanical Ventilator 100 08/02/16 10:30 80 21 153/77 100 Mechanical Ventilator 100 08/02/16 10:00 77 15 140/72 100 Mechanical Ventilator 100 08/02/16 09:30 78 15 126/67 99 Mechanical Ventilator 100 08/02/16 09:09 79 14 119/58 100 08/02/16 09:07 78 14 126/60 100 08/02/16 09:05 78 14 125/59 100 08/02/16 09:03 78 14 124/63 100 Mechanical Ventilator 100 08/02/16 09:01 78 15 130/63 100 Mechanical Ventilator 100 Laboratory Results: Last 24 Hours Test 08/02/16 12:02 08/02/16 20:15 08/02/16 23:38 08/03/16 03:50 Bedside Glucose 262 mg/dl 291 mg/dl 394 mg/dl 305 mg/dl Test 08/03/16 05:47 White Blood Count 12.98 K/uL Red Blood Count 3.53 M/uL Hemoglobin 10.4 g/dL Hematocrit 34.0 % Mean Corpuscular Volume 96.3 fL Mean Corpuscular Hemoglobin 29.5 pg Mean Corpuscular Hemoglobin Concent 30.6 g/dl Platelet Count 228 K/uL Mean Platelet Volume 9.4 fL Neutrophils (%) (Auto) 64.9 % Lymphocytes (%) (Auto) 26.9 % Monocytes (%) (Auto) 7.3 % Eosinophils (%) (Auto) 0.3 % Basophils (%) (Auto) 0.2 % Neutrophils # (Auto) 8.42 K/uL Lymphocytes # (Auto) 3.49 K/uL Monocytes # (Auto) 0.95 K/uL Eosinophils # (Auto) 0.04 K/uL Basophils # (Auto) 0.03 K/uL RDW Standard Deviation 67.5 fL RDW Coefficient of Variation 19.2 % Immature Granulocyte % (Auto) 0.4 % Immature Granulocyte # (Auto) 0.05 K/uL Sodium Level 138 mmol/L Potassium Level 4.2 mmol/L Chloride Level 102 mmol/L Carbon Dioxide Level 29 mmol/L Anion Gap 7.0 mmol/L Blood Urea Nitrogen 90 mg/dl Creatinine 0.78 mg/dl Est Creatinine Clear Calc Drug Dose 58.5 ml/min Estimated GFR () 89.9 Estimated GFR (Non- 77.6 BUN/Creatinine Ratio 115.8 Random Glucose 318 mg/dl Calcium Level 8.5 mg/dl Phosphorus Level 5.2 mg/dl Magnesium Level 3.3 mg/dl Beta-Hydroxybutyric Acid 1.56 mg/dL
[2016-08-03] MEDS: AMLODIPINE BESYLATE 5 MG TAB PEG SCH (09:04)
[2016-08-03] MEDS: CLOPIDOGREL BISULFATE 75 MG TAB PEG SCH (09:04)
[2016-08-03] MEDS: DIPYRIDAMOLE/ASPIRIN CAP PO SCH ×2 (09:04→21:19)
[2016-08-03] MEDS ORDERED: INSULIN ASPART 100 UNITS/ML 3 ML PEN SC ONE (09:15)
[2016-08-03] MEDS ORDERED: INSULIN GLARGINE PER UNIT 5 UNITS in SYRINGE 0 ML SC ONE (09:15)
[2016-08-03] MEDS: ACETAMINOPHEN SOLN 650MG/20.3 ML UDC PEG PRN ×2 (09:49→19:26)
--- NOTE | 2016-08-03 11:33 | Infectious Disease Progress Nt ---
Progress Note Date of Service Aug 03, 2016. Subjective Pt evaluation today including: conversation w/ patient, conversation w/ family (caregiver), physical exam, chart review, lab review, review of studies, conversation w/ integrity consultant (Dr. Trimble), review of inpatient medication list Patient is still feeling poorly this morning. She is concerned that her O2 saturation continues to be in the low 90s. Urine grew yeast non-merari albicans. Sputum from her trach is growing GNB which is pending identification. Bronch cultures pending. WBC count 12.98 this morning. Afebrile today. She also continues to have diarrhea, but C. Diff toxin was negative. CXR showed stable findings. All Other Systems: Reviewed and Negative Medications Current Inpatient Medications Medications (Trade) Dose Ordered Sig/Tasha Route Start Time Stop Time Status Last Admin Dose Admin Dipyridamole/ Aspirin (Aggrenox 200MG/ 25MG Cap) 1 cap BID PO 07/30/16 09:00 08/29/16 08:59 08/03/16 09:04 1 CAP Bisacodyl (Dulcolax Supp) 10 mg SuMoWeFr@2100 [place] 07/30/16 21:00 08/29/16 20:59 Future Hold 07/30/16 21:37 10 MG Phenazopyridine HCl (Pyridium Tab) 200 mg BID PRN PO 07/30/16 02:15 08/29/16 02:14 07/30/16 10:40 200 MG Heparin Sodium (Porcine) (Heparin Sq 5000 Unit/0.5ml) 5,000 unit Q8 SQ 07/30/16 06:00 08/29/16 05:59 08/03/16 05:45 5,000 UNIT Ondansetron HCl (Zofran Inj) 4 mg Q6H PRN IV 07/30/16 02:15 08/29/16 02:14 08/03/16 07:35 4 MG Miscellaneous (Iv Fluids Completed) 1 ea PRN PRN N/A 07/30/16 03:15 07/30/17 03:14 Glucose (Glucose 40% Gel) 15-30 GRAMS 15 GRAMS... UD PRN PO 07/30/16 03:30 08/29/16 03:29 Glucose (Glucose Chew Tab) 4-8 Tablets 4 Tabl... UD PRN PO 07/30/16 03:30 08/29/16 03:29 Dextrose (Dextrose 50% 50ML Syringe) 25-50ML OF 50% DW IV FOR... UD PRN IV 07/30/16 03:30 08/29/16 03:29 Glucagon 1 mg 1 mg UD PRN SQ 07/30/16 03:30 08/29/16 03:29 Ertapenem/Sodium Chloride (Invanz Iv/Nss Ad-Van 50ml) 50 ml @ 100 mls/hr Q24H IV 07/31/16 08:00 08/10/16 07:59 08/03/16 07:35 100 MLS/HR Bisacodyl (Dulcolax Supp) 10 mg TuTh@0530 [place] 07/31/16 05:30 08/30/16 05:29 Future Hold 07/31/16 05:59 10 MG Lidocaine (Lidoderm Patch 5%) 2 patch DAILY@2100 TD 07/30/16 21:00 08/29/16 20:59 08/02/16 20:31 2 PATCH Miscellaneous (Remove Lidoderm Patch) 1 ea DAILY@0900 N/A 07/31/16 09:00 08/30/16 08:59 08/03/16 07:45 1 EA Acetaminophen (Tylenol Soln) 650 mg Q4H PRN PEG 07/30/16 18:15 08/29/16 18:14 08/03/16 09:49 650 MG Allopurinol (Zyloprim Tab) 100 mg DAILY PEG 07/31/16 09:00 08/30/16 08:59 08/03/16 08:59 100 MG Al Hydrox/Mg Hydrox/Simethicone (Maalox Max Susp) 15 ml Q4H PRN PEG 07/30/16 18:15 08/29/16 18:14 08/01/16 09:46 15 ML Amlodipine Besylate (Norvasc Tab) 3.75 mg DAILY PEG 07/31/16 09:00 08/30/16 08:59 08/03/16 09:04 3.75 MG Buspirone HCl (BusPAR TAB) 7.5 mg BID PEG 07/30/16 21:00 08/29/16 20:59 08/03/16 08:58 7.5 MG Clopidogrel Bisulfate (plAVix TAB) 75 mg DAILY PEG 07/31/16 09:00 08/30/16 08:59 08/03/16 09:04 75 MG Fluconazole (Diflucan Susp) 100 mg QPM PEG 07/30/16 21:00 08/09/16 20:59 08/02/16 20:36 100 MG Gabapentin (Neurontin) 100 mg QAM PEG 07/31/16 09:00 08/30/16 08:59 08/03/16 08:56 100 MG Gabapentin (Neurontin) 200 mg 1600 PEG 07/30/16 16:00 08/29/16 15:59 08/02/16 15:43 200 MG Pentosan Polysulfate Sodium (Elmiron) 100 mg BID PEG 07/30/16 21:00 08/29/16 20:59 08/03/16 08:58 100 MG Polyethylene (Miralax Powder Packet) 17 gm DAILY PRN PEG 07/31/16 09:00 08/30/16 08:59 Gabapentin (Neurontin) 600 mg HS PEG 07/30/16 21:00 08/29/16 20:59 08/02/16 20:35 600 MG Lorazepam (Ativan Tab) 0.5 mg DAILY PRN PEG 07/30/16 16:45 08/29/16 16:44 Magnesium Hydroxide (Milk Of Magnesia Susp) 30 ml Q12H PRN PEG 07/30/16 16:45 08/29/16 16:44 Future Hold Lamotrigine (Lamictal Tab) 25 mg BID PEG 07/30/16 21:00 08/06/16 23:59 08/03/16 09:42 25 MG Lamotrigine (Lamictal Tab) 50 mg BID PEG 08/07/16 09:00 09/06/16 08:59 Non-Formulary Medication (Non-Formulary Patient'S Own Med) 1 ea TID PEG 07/30/16 21:00 08/29/16 20:59 08/03/16 07:46 1 EA Sterile Water (Tube Feeding Water Flush) 1 ea TID PEG 07/30/16 21:00 08/29/16 20:59 08/03/16 07:47 1 EA Lifitegrast (Xiidra 5% Oph Soln) 1 drop BID OP 07/30/16 21:00 08/29/16 20:59 08/03/16 07:49 1 DROP Heparin Sodium (Porcine) (Heparin 100 Unit/ml 5ml Flush) 5 ml PRN PRN IV 07/30/16 23:45 08/29/16 23:44 Ipratropium [place] (Atrovent Hfa Inhaler) 4 puffs QIDR INH 07/31/16 16:00 08/30/16 15:59 08/03/16 07:36 4 PUFFS Albuterol (Ventolin Hfa Inhaler) 4 puffs QIDR INH 07/31/16 16:00 08/30/16 15:59 08/03/16 07:36 4 PUFFS Escitalopram Oxalate 20 mg 20 mg QAM PEG 08/01/16 09:00 08/31/16 08:59 08/03/16 08:57 20 MG Tigecycline 50 mg/ Dextrose 105 ml @ 200 mls/hr Q12 IV 08/01/16 22:00 08/08/16 21:59 08/03/16 08:55 200 MLS/HR Caspofungin/ Sodium Chloride (Cancidas Inj/ Nss 250ml) 260 ml @ 250 mls/hr DAILY@0900 IV 08/02/16 09:00 08/12/16 08:59 08/03/16 08:56 250 MLS/HR Miscellaneous Information 1 ea 1 ea UD PRN N/A 08/01/16 10:45 08/31/16 10:44 Amphotericin B/ Sterile Water (Fungizone Irrigation Inj/ Sterile Water 1000 ml) 1,000 ml @ 41.667 mls/ hr DAILY@1200 IR 08/01/16 12:00 08/06/16 11:59 08/02/16 12:11 41.667 MLS/HR Insulin Aspart (novoLOG ASPART) SLIDING SCALE G... 0000,0400 SC 08/02/16 00:00 09/01/16 00:00 08/03/16 03:53 5 UNITS Non-Formulary Medication (Non-Formulary Patient'S Own Med) 1 ea HS OP 08/02/16 21:00 09/01/16 20:59 08/02/16 20:38 1 EA Lactobacillus Acidophilus (Floranex Tab) 4 tab TID@0900,1400,2100 PEG 08/02/16 14:00 09/01/16 13:59 4/21/17 08:59 4 TAB Enteral Nutritional Formula (Prosource No Carb) 30 ml TID@0900,1400,2100 PEG 08/02/16 14:00 09/01/16 13:59 Future Hold 08/03/16 07:37 30 ML Sterile Water (Tube Feeding Water Flush) 1 ea TID@0900,1400,2100 PEG 08/02/16 14:00 09/01/16 13:59 08/03/16 07:47 1 EA Insulin Aspart (novoLOG ASPART) tube feeds = 54 g of C... TID@0845,1345,2045 SC 08/02/16 13:45 Future Hold 08/03/16 07:44 16 UNITS Insulin Glargine (Lantus Solostar Pen) 22 unit HS SC 08/03/16 21:00 09/02/16 20:59 Loperamide HCl (Imodium Cap) 2 mg DAILY PRN PO 08/04/16 09:00 09/03/16 08:59 Objective Vital Signs Date Time Temp Pulse Resp B/P Pulse Ox O2 Delivery O2 Flow Rate FiO2 08/03/16 10:00 94 21 147/72 91 Mechanical Ventilator 30 08/03/16 09:00 88 20 142/63 91 Mechanical Ventilator 30 08/03/16 08:00 36.8 86 18 134/65 91 Mechanical Ventilator 30 08/03/16 08:00 Mechanical Ventilator 30 08/03/16 08:00 30 08/03/16 07:36 35 08/03/16 07:00 87 15 138/68 94 Mechanical Ventilator 35 08/03/16 06:00 90 20 122/57 97 Mechanical Ventilator 35 08/03/16 05:45 35 08/03/16 04:00 35 08/03/16 04:00 Mechanical Ventilator 35 08/03/16 04:00 36.8 88 18 135/59 98 Mechanical Ventilator 35 08/03/16 02:25 35 08/03/16 02:00 89 20 143/59 96 Mechanical Ventilator 35 08/03/16 00:01 36.8 88 22 137/57 94 Mechanical Ventilator 35 08/02/16 23:59 35 08/02/16 23:59 Mechanical Ventilator 35 08/02/16 23:23 35 08/02/16 22:00 104 20 178/101 94 Mechanical Ventilator 35 08/02/16 20:23 35 08/02/16 20:00 Mechanical Ventilator 35 08/02/16 20:00 35 08/02/16 20:00 36.7 96 24 149/85 96 Mechanical Ventilator 35 08/02/16 18:20 35 08/02/16 15:57 36.8 85 23 123/59 96 Mechanical Ventilator 50 08/02/16 15:57 96 Mechanical Ventilator 50 08/02/16 15:57 35 08/02/16 14:44 35 08/02/16 14:00 80 28 139/74 96 Mechanical Ventilator 50 08/02/16 12:10 100 08/02/16 12:00 36.8 82 23 105/46 99 Mechanical Ventilator 50 08/02/16 12:00 99 Mechanical Ventilator 50 Physical Exam General Appearance: WD/WN, + mild distress Eyes: normal inspection, sclerae normal ENT: hearing grossly normal Neck: supple, trachea midline Respiratory/Chest: no respiratory distress, no accessory muscle use, + crackles (left lung), + pertinent finding (tracheostomy, ventilated) Cardiovascular: regular rate, rhythm Abdomen: normal bowel sounds, + distended Neurologic/Psychiatric: alert, + depressed affect Skin: normal color, warm/dry, no rash Laboratory Results CHEST ONE VIEW PORTABLE CLINICAL HISTORY: Hypoxia COMPARISON STUDY: 08/02/2016 FINDINGS: The heart remains mildly enlarged. There is a left subclavian central venous catheter and right subclavian A-Port catheter. There is a tracheostomy tube present. There are persistent airspace opacities within left mid and lower lung zone.[ An element of mild pulmonary vascular congestion is suspected. IMPRESSION: Stable findings. Mild cardiomegaly and suspected mild pulmonary vascular congestion. Persistent left mid and lower lung zone airspace opacities Item Value Date Time Fungal Smear - Final Resulted 08/02/16 0000 Bronchial Washings Left Lower Lobe Acid Fast Stain - Final Resulted 08/02/16 0000 Bronchial Washings Left Lower Lobe Gram Stain - Final Resulted 08/02/16 0000 Bronchial Washings Left Lower Lobe C.difficile Toxin B Gene (PCR) - Final Complete 07/31/16 1630 Stool No C. difficile toxin B gene detected Gram Stain - Final Resulted 07/31/16 0843 Sputum Trach. Tube Suction MRSA DNA Surveillance Screen - Final Complete 07/30/16 1600 Nasal Specimen Negative for MRSA by DNA Probe Urine Culture - Final Complete 07/30/16 0025 Urine,Catheterized Yeast Not Merari Albicans Last 24 Hours Test 08/02/16 12:02 08/02/16 20:15 08/02/16 23:38 08/03/16 03:50 Bedside Glucose 262 mg/dl 291 mg/dl 394 mg/dl 305 mg/dl Test 08/03/16 05:47 White Blood Count 12.98 K/uL Red Blood Count 3.53 M/uL Hemoglobin 10.4 g/dL Hematocrit 34.0 % Mean Corpuscular Volume 96.3 fL Mean Corpuscular Hemoglobin 29.5 pg Mean Corpuscular Hemoglobin Concent 30.6 g/dl Platelet Count 228 K/uL Mean Platelet Volume 9.4 fL Neutrophils (%) (Auto) 64.9 % Lymphocytes (%) (Auto) 26.9 % Monocytes (%) (Auto) 7.3 % Eosinophils (%) (Auto) 0.3 % Basophils (%) (Auto) 0.2 % Neutrophils # (Auto) 8.42 K/uL Lymphocytes # (Auto) 3.49 K/uL Monocytes # (Auto) 0.95 K/uL Eosinophils # (Auto) 0.04 K/uL Basophils # (Auto) 0.03 K/uL RDW Standard Deviation 67.5 fL RDW Coefficient of Variation 19.2 % Immature Granulocyte % (Auto) 0.4 % Immature Granulocyte # (Auto) 0.05 K/uL Sodium Level 138 mmol/L Potassium Level 4.2 mmol/L Chloride Level 102 mmol/L Carbon Dioxide Level 29 mmol/L Anion Gap 7.0 mmol/L Blood Urea Nitrogen 90 mg/dl Creatinine 0.78 mg/dl Est Creatinine Clear Calc Drug Dose 58.5 ml/min Estimated GFR () 89.9 Estimated GFR (Non- 77.6 BUN/Creatinine Ratio 115.8 Random Glucose 318 mg/dl Calcium Level 8.5 mg/dl Phosphorus Level 5.2 mg/dl Magnesium Level 3.3 mg/dl Beta-Hydroxybutyric Acid 1.56 mg/dL Assessment and Plan Quadriplegic female with history of recurrent UTI and pneumonia now with possible left sided pneumonia and Non-merari albicans yeast UTI. GNB growing in sputum pending identification. The patient has been desaturating on and off and had a potential aspiration event. She is currently on Tigecycline and appears to be improving slightly, will await culture results and potentially change abx at that time. Will also continue IV Caspofungin and Ampho B bladder irrigation for concern of resistant yeast UTI. We will follow. PROVIDER ADDENDUM: Patient reviewed with Ms. Martinez. Agree with above assessment.
[2016-08-03] MEDS: AMPHOTERICIN B IRRIGATION INJ 50 MG in STERILE WATER 1000 ML 1,000 ML IR SCH (13:13)
[2016-08-03] MEDS ORDERED: NURSING VERBAL MED ORDER ONE (13:15)
--- NOTE | 2016-08-03 15:27 | PULMONARY PROGRESS NOTE ---
DATE: 08/03/2016 TIME: 2:55 p.m. SUBJECTIVE: The patient remains somewhat short of breath at times. There has been relative stability of her oxygenation status. The staff is looking at an alternative ventilator for her if need be. The patient continues with very loose bowel movements. She now has a rectal bag in place. OBJECTIVE: GENERAL: The patient looks to be in no specific distress. VITAL SIGNS: Temperature today is 36.7. She has not had any significant fever in the past 48 hours. Heart rate is 90. Blood pressure is 146/64. Oxygen saturation is 93%. HEENT: Trach is in place. HEART: The rhythm is regular. The rhythm is normal sinus. LUNGS: She has diffuse rales and rhonchi bilaterally. These seem increased compare with the exam done 48 hours ago. Nursing staff tells me she is bringing up more secretions today. ABDOMEN: PEG tube is in place. The abdomen remains obese. EXTREMITIES: The patient is quadriplegic. LABORATORY DATA: Bronchial washings are showing gram negative bacilli as are tracheal aspirates. Urine is showing yeast, not Merari. AFB smear off bronchoscopy was negative and fungal smear off bronchoscopy is negative. White count is coming down. Today, it was 12.98. It had been 17.68 2 days earlier. Hemoglobin today 10.4. Platelets 228,000. Electrolytes show sodium 138, potassium 4.2, chloride 102, bicarbonate 29. BUN is elevated at 90. She had been 28 on admission. Creatinine is 0.78. Blood sugar today was 278. IMAGING DATA: Chest x-ray done today shows what appears to me to be bilateral lung infiltrates, greater at the left than the right with persistent opacification at the left base. Yesterday's bronchoscopy had shown significant secretions on the left with occlusion of the left lower lobe. IMPRESSIONS: 1. Pneumonia. 2. Respiratory failure -- acute on chronic with hypoxia and hypercarbia. 3. Seizure. 4. Quadriplegia. COMMENTS AND RECOMMENDATIONS: ID is managing the antibiotics. The patient sounds very noisy today. That could be good if that means that her secretions are loosening, but it could be bad if that means she is actually having more secretions. I am pleased with the decrease in the white blood cell count. Final cultures are pending. Her oxygenation has been good with the vent set at 30%.
[2016-08-03] MEDS: ALUMINUM/MAGNESIUM/SIMETH (MAALOX MAX) 30 ML UDC PEG PRN (16:17)
[2016-08-03] MEDS: INSULIN GLARGINE SOLOSTAR 100 UNITS/ML 3 ML PEN SC SCH (21:21)
[2016-08-03] MEDS: LIDODERM (LIDOCAINE) PATCH 5% TD SCH (21:22)
[2016-08-03] MEDS: FLUCONAZOLE SUSP 100 MG/10 ML UDP PEG SCH (21:22)
[2016-08-03] MEDS: [UNRECOGNIZED DRUG - OTHER] OP SCH (21:50)
[2016-08-03] MEDS: MELATONIN 3 MG TAB PO PRN (23:26)
[2016-08-04] VITALS (15 sets, daily range): BP systolic 124–145; BP diastolic 54–75; PULSE 77–92; TEMP 36.6–36.8; O2SAT 89–98
[2016-08-04] MEDS: INSULIN ASPART 100 UNITS/ML 3 ML PEN SC SCH ×4 (04:11→20:08)
[2016-08-04 05:40] LABS: BASO % 0.4 %; BASO ABS # 0.04 K/uL (0-0.2); COMPLETE YES; EOS % 1.4 %; HEMATOCRIT 33.8 % (37-47); IG% 0.4 %; LYMPH % 29.9 %; LYMPH ABS # 2.86 K/uL (1.2-3.4); MEAN CELL VOLUME 96.6 fL (80-100); MEAN CORPUSCULAR HEMOGLOBIN 29.4 pg (25-34); MEAN CORPUSCULAR HGB CONC 30.5 g/dl (32-36); MEAN PLATELET VOLUME 9.1 fL (7.4-10.4); MONO % 10.6 %; NEUT % 57.3 %; PLATELET COUNT 224 K/uL (130-400); WHITE BLOOD COUNT 9.57 K/uL (4.8-10.8)
[2016-08-04 06:11] LABS: BUN/CREATININE RATIO 119.3 (10-20); CALCIUM 8.8 mg/dl (8.5-10.1); CREATININE 0.65 mg/dl (0.60-1.20); MAGNESIUM 3.2 mg/dl (1.8-2.4); POTASSIUM 3.9 mmol/L (3.5-5.1)
[2016-08-04 06:12] LABS: PHOSPHORUS 4.1 mg/dl (2.5-4.9)
[2016-08-04] MEDS: HEPARIN SOD 5000 UNIT/0.5 ML CARP SQ SCH ×3 (06:31→21:49)
--- NOTE | 2016-08-04 07:06 | DIAGNOSTIC IMAGING REPORT ---
CHEST ONE VIEW PORTABLE CLINICAL HISTORY: Abnormal chest x-ray. Left lower lobe infiltrate. COMPARISON STUDY: 08/03/2016 FINDINGS: The heart is mildly enlarged. A right-sided A-Port catheter, left subclavian central venous catheter and tracheostomy tube remain unchanged in position. There is elevation interstitium consistent with pulmonary vascular congestion. More focal airspace opacities are present within the left mid and lower lung zone. There are left lower lobe air bronchograms.[ IMPRESSION: Stable findings. Radiographic evidence of congestive failure/fluid overload. Persistent left mid and lower lung zone airspace opacities with left lower lobe air bronchograms. Electronically signed by: Viktor Whitfield M.D. 08/04/2016 7:03 AM Dictated Date/Time: 08/04/2016 7:02 AM
[2016-08-04] MEDS: IPRATROPIUM BROMIDE HFA INHALER INH SCH ×3 (07:52→19:33)
[2016-08-04] MEDS: ALBUTEROL HFA 8 GM INHALER INH SCH ×3 (07:52→19:33)
[2016-08-04] MEDS: ERTAPENEM IV 1 GM in SODIUM CHLOR 0.9% AD-VAN 50ML IV SCH (07:52)
[2016-08-04] MEDS: ONDANSETRON INJ 2 MG/ML 2 ML VIAL IV PRN ×3 (07:54→19:55)
[2016-08-04] MEDS: LIFITEGRAST 5% OP SCH ×2 (08:11→20:24)
[2016-08-04] MEDS: PROPYLENE GLYCOL 0.6% (OPHTH) 15 DROP/ML 10ML BTL OPB SCH (08:11)
[2016-08-04] MEDS: [UNRECOGNIZED DRUG - SUPPLY] OP SCH ×2 (08:12→20:13)
[2016-08-04] MEDS: ENTERAL NUTRITION FORMULA PEG SCH ×3 (08:13→20:23)
[2016-08-04] MEDS: TUBE FEEDING WATER FLUSH PEG SCH ×6 (08:13→20:24)
[2016-08-04] MEDS ORDERED: POTASSIUM CHLORIDE 20 MEQ/15 ML UDC GT STA (08:47)
[2016-08-04] MEDS ORDERED: LOPERAMIDE HCL 2 MG CAP PO PRN (09:00)
[2016-08-04] MEDS ORDERED: FUROSEMIDE INJ 20 MG in SYRINGE 0 ML IV ONE (09:30)
[2016-08-04] MEDS: TIGEcycline INJ 50 MG in DEXTROSE 5% 100ML 100 ML IV SCH (09:54)
[2016-08-04] MEDS: CASPOFUNGIN INJ 50 MG in SODIUM CHLORIDE 0.9% 250ML 250 ML IV SCH (09:54)
[2016-08-04] MEDS: BusPIRone 15 MG TAB PEG SCH ×2 (09:56→20:16)
[2016-08-04] MEDS: LACTOBACILLUS ACIDOPHILUS (FLORANEX) TAB PEG SCH ×3 (09:57→20:20)
[2016-08-04] MEDS: PENTOSAN POLYSULFATE SODIUM 100 MG CAP PEG SCH ×2 (09:57→20:17)
[2016-08-04] MEDS: ALLOPURINOL 100 MG TAB PEG SCH (09:58)
[2016-08-04] MEDS: ESCITALOPRAM OXALATE ORAL SOLN 5 MG/5 ML PEG SCH (09:58)
[2016-08-04] MEDS: GABAPENTIN 250 MG/5 ML 470 ML BTL PEG SCH ×3 (09:58→20:27)
[2016-08-04] MEDS: AMLODIPINE BESYLATE 5 MG TAB PEG SCH (09:59)
[2016-08-04] MEDS: CLOPIDOGREL BISULFATE 75 MG TAB PEG SCH (09:59)
[2016-08-04] MEDS: DIPYRIDAMOLE/ASPIRIN CAP PO SCH ×2 (09:59→20:28)
[2016-08-04] MEDS: PROMETHAZINE HCL INJ 12.5 MG in SODIUM CHLORIDE 0.9% 50ML 50 ML IV PRN (11:15)
[2016-08-04] MEDS: AMPHOTERICIN B IRRIGATION INJ 50 MG in STERILE WATER 1000 ML 1,000 ML IR SCH (13:53)
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
--- NOTE | 2016-08-04 14:44 | CRITICAL CARE PROGRESS NOTE ---
DATE: 08/04/2016 SUBJECTIVE: There were no acute events overnight. The volume of her stool seems to be less, although was not being collected in a rectal tube until yesterday. She denies pain and shortness of breath. She is down to 28% FiO2 as well. Her sputum is now white. Stools are very thin and watery. The home equipment company did some initial teaching regarding her new ventilator yesterday. PHYSICAL EXAMINATION: VITAL SIGNS: Maximum temperature 36.8, heart rate 80-90, respiratory rate 16-21, blood pressure 134-159/60-70, oxygen saturation 96%. Ventilator settings are assist control, rate 14, tidal volume 500, FiO2 28%, PEEP 0. 24-hour fluid balance positive 534 mL. GENERAL: She is awake and asks me what her chest x-ray this morning showed. LUNGS: Very coarse bilaterally. No rhonchi or wheezes. HEART: Regular rate and rhythm. ABDOMEN: Round, soft, nondistended. Active bowel sounds. EXTREMITIES: Warm with trace edema. LABORATORY DATA: White blood cell count 9.57, hemoglobin 10.3, hematocrit 33.8, platelets 224. Sodium 142, potassium 3.9, chloride 105, CO2 31, BUN 78, creatinine 0.65. Blood sugar 175, magnesium 3.2. Bronchial washing from August 02 culture showing gram negative rods. Sputum July 31 showing Stenotrophomonas maltophilia. Urine culture July 30 shows yeast, not Merari albicans. Portable chest x-ray from this morning was reviewed and shows mild pulmonary edema and a persistent left lower lobe infiltrate. MEDICATIONS AND INFUSIONS: Acetaminophen, Maalox, albuterol, allopurinol, Norvasc, amphotericin B bladder wash day #3, BuSpar, caspofungin day #3, Plavix, Aggrenox, ertapenem day #5, fluconazole day #5, gabapentin, subcutaneous heparin, insulin sliding scale, Lantus, Atrovent, Floranex, Lamictal, Lidoderm patch, Imodium, Ativan, Zofran, Elmiron, Pyridium p.r.n., MiraLax p.r.n., promethazine p.r.n. sterile water flush, tigecycline day #3. IMPRESSION: 1. Acute hypercapnic hypoxemic respiratory failure, initially with some mechanical problems with the ventilator as well as her tracheostomy, now with Stenotrophomonas pneumonia. She is status post bronchoscopy with bronchoalveolar lavage on August 02. Oxygen requirements have improved and ventilator settings are back to those she uses at home. 2. Seizure, this was her initial presenting problem. No further seizures on the Lamictal. The dose is being escalated per neurology recommendations. This will need to be reviewed prior to her discharge. 3. Stenotrophomonas maltophilia pneumonia. 4. 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 5. Diarrhea, Clostridium difficile negative x2, I suspect it is secondary to her antibiotics. Tube feeding has not really changed other than initially she was given some ProSource and that has been discontinued secondary to her rising BUN without any other etiology being found. She has a fecal management system in place. 6. 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 7. Hyponatremia, improved. 8. Diabetes mellitus type 2. Blood sugars have improved with adjusting the Lantus. I expect that we will have to start decreasing her long-acting insulin as her infection improves. 9. Chronic suppressive antibiotic therapy with ertapenem, fluconazole and gentamicin. The infectious disease service is following her as well. 10. History of cerebrovascular accident. 11. Chronic indwelling Staples with multiple urinary tract infections in the past. 12. Sacral decubitus ulcer. PLAN: NEUROLOGIC: Continue Lamictal, attempt to avoid Ativan or any sedatives. Continue Plavix and Aggrenox per her outpatient regimen as well as Neurontin, BuSpar and Lexapro. PULMONARY: Continue home ventilator settings. Her new ventilator should be coming on Saturday and I anticipate a smoother transition if she is in the intensive care unit. Her family is anxious about it as is patient. CARDIOVASCULAR: Continue amlodipine. INFECTIOUS DISEASE: Continue antibiotics per the infectious disease service. Bladder washes will continue for a total of 5 days. D/C Tigecycline and begin Bactrim. HEMATOLOGIC: Continue subcutaneous heparin for deep venous thrombosis prophylaxis. RENAL: Watch volume status. Lasix 20 mg IV given today. GASTROINTENSTINAL: Follow stool volume, Imodium has been ordered. Hopefully we can pare down her antibiotics, this may help her diarrhea. Continue Nutren bolus tube feeding and hold ProSource. Her family and caretakers are reluctant to change her tube feed formula. She has Imodium for diarrhea. ENDOCRINE: No changes in insulin today. SKIN: Continue local wound care. IV ACCESS: A-port I discussed her care in detail with her daughter who was at the bedside this morning. Questions were answered. INO
[2016-08-04] MEDS: SULFA/TRIMETH SUSP 800/160MG 20ML UDC PEG SCH ×2 (17:22→22:21)
[2016-08-04] MEDS: FLUCONAZOLE SUSP 100 MG/10 ML UDP PEG SCH (20:16)
[2016-08-04] MEDS: LIDODERM (LIDOCAINE) PATCH 5% TD SCH (20:23)
[2016-08-04] MEDS: [UNRECOGNIZED DRUG - OTHER] OP SCH (20:24)
[2016-08-04] MEDS: INSULIN GLARGINE SOLOSTAR 100 UNITS/ML 3 ML PEN SC SCH (20:29)
[2016-08-04] MEDS: ACETAMINOPHEN SOLN 650MG/20.3 ML UDC PEG PRN (22:43)
[2016-08-05] VITALS (23 sets, daily range): BP systolic 119–153; BP diastolic 52–85; PULSE 70–87; TEMP 36.4–37; O2SAT 92–98
[2016-08-05] MEDS: INSULIN ASPART 100 UNITS/ML 3 ML PEN SC SCH ×6 (00:05→23:50)
[2016-08-05] MEDS: HEPARIN SOD 5000 UNIT/0.5 ML CARP SQ SCH ×3 (05:16→21:42)
[2016-08-05 05:58] LABS: BASO % 0.4 %; BASO ABS # 0.04 K/uL (0-0.2); COMPLETE YES; EOS % 1.3 %; HEMATOCRIT 34.7 % (37-47); IG% 0.6 %; LYMPH % 46.8 %; LYMPH ABS # 4.18 K/uL (1.2-3.4); MEAN CELL VOLUME 96.7 fL (80-100); MEAN CORPUSCULAR HEMOGLOBIN 29.2 pg (25-34); MEAN CORPUSCULAR HGB CONC 30.3 g/dl (32-36); MEAN PLATELET VOLUME 9.9 fL (7.4-10.4); MONO % 9.7 %; NEUT % 41.2 %; PLATELET COUNT 243 K/uL (130-400); RED BLOOD COUNT 3.59 M/uL (4.2-5.4); WHITE BLOOD COUNT 8.94 K/uL (4.8-10.8)
[2016-08-05 06:20] LABS: BUN/CREATININE RATIO 101.9 (10-20); CALCIUM 8.7 mg/dl (8.5-10.1); CREATININE 0.6 mg/dl (0.60-1.20); MAGNESIUM 2.6 mg/dl (1.8-2.4); POTASSIUM 4.9 mmol/L (3.5-5.1)
[2016-08-05] MEDS: ONDANSETRON INJ 2 MG/ML 2 ML VIAL IV PRN ×3 (07:38→19:50)
[2016-08-05] MEDS: PROPYLENE GLYCOL 0.6% (OPHTH) 15 DROP/ML 10ML BTL OPB SCH (07:38)
[2016-08-05] MEDS: ERTAPENEM IV 1 GM in SODIUM CHLOR 0.9% AD-VAN 50ML IV SCH (07:38)
[2016-08-05] MEDS: LIFITEGRAST 5% OP SCH ×2 (07:39→22:42)
[2016-08-05] MEDS: [UNRECOGNIZED DRUG - SUPPLY] OP SCH ×2 (07:40→22:42)
[2016-08-05] MEDS: TUBE FEEDING WATER FLUSH PEG SCH ×6 (07:41→22:44)
[2016-08-05] MEDS: ENTERAL NUTRITION FORMULA PEG SCH ×3 (07:41→22:43)
[2016-08-05] MEDS: ALBUTEROL HFA 8 GM INHALER INH SCH ×4 (07:54→20:08)
[2016-08-05] MEDS: IPRATROPIUM BROMIDE HFA INHALER INH SCH ×4 (07:54→20:08)
[2016-08-05] MEDS: CASPOFUNGIN INJ 50 MG in SODIUM CHLORIDE 0.9% 250ML 250 ML IV SCH (08:55)
[2016-08-05] MEDS: SULFA/TRIMETH SUSP 800/160MG 20ML UDC PEG SCH ×2 (08:59→20:20)
[2016-08-05] MEDS: GABAPENTIN 250 MG/5 ML 470 ML BTL PEG SCH ×3 (08:59→20:19)
[2016-08-05] MEDS: LACTOBACILLUS ACIDOPHILUS (FLORANEX) TAB PEG SCH ×3 (09:00→20:18)
[2016-08-05] MEDS: CLOPIDOGREL BISULFATE 75 MG TAB PEG SCH (09:00)
[2016-08-05] MEDS: PENTOSAN POLYSULFATE SODIUM 100 MG CAP PEG SCH ×2 (09:00→20:16)
[2016-08-05] MEDS: AMLODIPINE BESYLATE 5 MG TAB PEG SCH (09:00)
[2016-08-05] MEDS: ESCITALOPRAM OXALATE ORAL SOLN 5 MG/5 ML PEG SCH (09:00)
[2016-08-05] MEDS: ALLOPURINOL 100 MG TAB PEG SCH (09:00)
[2016-08-05] MEDS: BusPIRone 15 MG TAB PEG SCH ×2 (09:01→20:15)
[2016-08-05] MEDS: DIPYRIDAMOLE/ASPIRIN CAP PO SCH ×2 (09:14→20:20)
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
--- NOTE | 2016-08-05 12:46 | CRITICAL CARE PROGRESS NOTE ---
DATE: 08/05/2016 SUBJECTIVE: There were no acute events overnight. The patient remains on her home ventilator settings, but is still on the hospital's ventilator. She is having a small amount of thick white secretions and her liquid diarrhea continues. Staff believes that the volume has decreased. The patient says she feels pretty good today. This is the most animated I have ever seen her. She denies shortness of breath and abdominal discomfort. PHYSICAL EXAMINATION: VITAL SIGNS: Maximum temperature 37, heart rate 70s-80s, respiratory rate 15-32, blood pressure 128-144/60s-70s, and oxygen saturation 94%. Ventilator settings, assist control, tidal volume 500, rate 14, FiO2 of 28%, and PEEP 5. 24-hour fluid balance is -563 mL. GENERAL: She is awake and smiling when I greet her. NECK: #[address] in [address]. LUNGS: Coarse with occasional rhonchi on the right. No rales or wheezes. HEART: Regular rate and rhythm. ABDOMEN: Round, soft, and mildly distended. Active bowel sounds present. EXTREMITIES: Show foot drop and trace edema. LABORATORY DATA: White blood cell count 8.94, hemoglobin 10.5, hematocrit 34.7, and platelets 243. Sodium 143, potassium 4.9, chloride 106, CO2 of 33, BUN 61, creatinine 0.6, blood sugar 119, and magnesium 2.6. No new culture data. Portable chest x-ray is pending. MEDICATIONS: Acetaminophen, Maalox, albuterol, allopurinol, Norvasc, amphotericin B bladder wash day #4, caspofungin day #4, BuSpar, Plavix, Aggrenox, ertapenem day #7, fluconazole day #7, gabapentin, subcutaneous heparin, insulin sliding scale, Lantus, Atrovent, Floranex, Lamictal, lidocaine patch, ophthalmic drops, Imodium, Ativan, Zofran, Elmiron, Pyridium, MiraLax p.r.n., promethazine p.r.n. sterile water and Bactrim day #2. IMPRESSION: 1. Acute hypercapnic hypoxemic respiratory failure, resolved. 2. Stenotrophomonas pneumonia. She could be colonized but she was, hypoxemic with yellow sputum and an infiltrate and underwent bronchoscopy with BAL on August 02. 2. Seizure, the reason for which she was brought to the Emergency Department. No further seizure activity since admission. 3. 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 4. Diarrhea, hopefully this is improving. She received Imodium today. Tube feeds are unchanged with the exception of removing the ProSource and with that, her BUN is starting to come down. She has a fecal management system in place. C. dif negative times 2. 5. Decubitus ulcer. 6. 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 7. Diabetes mellitus type 2. Improved blood sugars. 8. Chronic suppressive antibiotic therapy with ertapenem, fluconazole and gentamicin. 9. History of cerebrovascular accident. PLAN: NEUROLOGIC: Continue Lamictal. She is scheduled to increase that dose to 50 mg b.i.d. this week. She will increase to 75 mg b.i.d. a week later and then 100 mg b.i.d. A trough will be needed after 2 weeks on 100 mg b.i.d. Continue Neurontin, BuSpar, Lexapro, Plavix, and Aggrenox. PULMONARY: I understand that her new ventilator is likely going to be delivered tomorrow. Family and caretakers are requesting transition to that ventilator while in the intensive care unit. Although, she would normally be a candidate for transfer based on her ventilator settings, I think it is reasonable to transition her to her home vent here in the ICU. CARDIOVASCULAR: Continue amlodipine. INFECTIOUS DISEASE: She was treated with tigecycline for 6 doses or 3 complete days. She has since transitioned to Bactrim for her Stenotrophomonas maltophilia and today is day #2. How she cycles her prophylactic antibiotics is still unclear to me. The infectious disease service is following and I will not change those over the weekend. I think her caspofungin and bladder washes can be discontinued after 5 days unless they say otherwise. HEMATOLOGY: Continue subcutaneous heparin for DVT prophylaxis. RENAL: Consider another dose of Lasix today. I have been waiting for chest x-ray for quite some time to decide. GASTROINTESTINAL: Continue Nutren tube feed boluses, probiotics and ammonium. Continue fecal management system for 1 more day as her wound appears to be improving and her stool volume is decreasing. ENDOCRINE: Consider decreasing the Lantus. I will see what her blood sugars are later today. SKIN: Continue local wound care. MISCELLANEOUS: Out of bed today if her caretakers can bring her chair from home. INO
--- NOTE | 2016-08-05 13:42 | DIAGNOSTIC IMAGING REPORT ---
CHEST ONE VIEW PORTABLE HISTORY: Follow-up pulmonary edema. COMPARISON: Chest 08/04/2016. FINDINGS: No pneumothorax. Cardiomegaly and small bilateral pleural effusions persist. Mild to moderate pulmonary edema has improved. Satisfactory support line placement which is unchanged in position. Left basilar densities persist. IMPRESSION: 1. Improvement in the pulmonary edema pattern. 2. Persistent left basilar airspace opacities. This could represent atelectasis or pneumonia. 3. Satisfactory support line placement, unchanged. Electronically signed by: Iban Hoffman M.D. 08/05/2016 1:40 PM Dictated Date/Time: 08/05/2016 1:39 PM
[2016-08-05] MEDS ORDERED: FUROSEMIDE INJ 20 MG in SYRINGE 0 ML IV ONE (14:15)
[2016-08-05] MEDS: AMPHOTERICIN B IRRIGATION INJ 50 MG in STERILE WATER 1000 ML 1,000 ML IR SCH (14:21)
[2016-08-05] MEDS: ACETAMINOPHEN SOLN 650MG/20.3 ML UDC PEG PRN ×2 (15:13→20:34)
[2016-08-05] MEDS: INSULIN GLARGINE SOLOSTAR 100 UNITS/ML 3 ML PEN SC SCH (20:22)
[2016-08-05] MEDS: LIDODERM (LIDOCAINE) PATCH 5% TD SCH (21:00)
[2016-08-05] MEDS: PROMETHAZINE HCL INJ 12.5 MG in SODIUM CHLORIDE 0.9% 50ML 50 ML IV PRN (21:41)
[2016-08-05] MEDS: [UNRECOGNIZED DRUG - OTHER] OP SCH (22:42)
[2016-08-05] MEDS: FLUCONAZOLE SUSP 100 MG/10 ML UDP PEG SCH (22:43)
[2016-08-06] VITALS (25 sets, daily range): BP systolic 116–165; BP diastolic 50–99; PULSE 67–80; TEMP 36.6–37; O2SAT 91–98
[2016-08-06] MEDS: INSULIN ASPART 100 UNITS/ML 3 ML PEN SC SCH ×4 (03:57→21:04)
[2016-08-06] MEDS: HEPARIN SOD 5000 UNIT/0.5 ML CARP SQ SCH ×3 (05:20→21:04)
[2016-08-06 05:32] LABS: HEMATOCRIT 34.8 % (37-47); MEAN CELL VOLUME 97.5 fL (80-100); MEAN CORPUSCULAR HEMOGLOBIN 29.1 pg (25-34); MEAN CORPUSCULAR HGB CONC 29.9 g/dl (32-36); MEAN PLATELET VOLUME 9.7 fL (7.4-10.4); PLATELET COUNT 234 K/uL (130-400); RED BLOOD COUNT 3.57 M/uL (4.2-5.4); WHITE BLOOD COUNT 8.05 K/uL (4.8-10.8)
[2016-08-06 05:50] LABS: BUN/CREATININE RATIO 75.6 (10-20); CALCIUM 8.6 mg/dl (8.5-10.1); CREATININE 0.54 mg/dl (0.60-1.20); POTASSIUM 5.3 mmol/L (3.5-5.1)
[2016-08-06] MEDS: IPRATROPIUM BROMIDE HFA INHALER INH SCH ×4 (08:05→19:26)
[2016-08-06] MEDS: ALBUTEROL HFA 8 GM INHALER INH SCH ×4 (08:05→19:26)
[2016-08-06] MEDS: LACTOBACILLUS ACIDOPHILUS (FLORANEX) TAB PEG SCH ×3 (08:42→20:58)
[2016-08-06] MEDS: AMLODIPINE BESYLATE 5 MG TAB PEG SCH (08:43)
[2016-08-06] MEDS: DIPYRIDAMOLE/ASPIRIN CAP PO SCH ×2 (08:43→20:59)
[2016-08-06] MEDS: BusPIRone 15 MG TAB PEG SCH ×2 (08:43→20:59)
[2016-08-06] MEDS: PENTOSAN POLYSULFATE SODIUM 100 MG CAP PEG SCH ×2 (08:43→20:59)
[2016-08-06] MEDS: SULFA/TRIMETH SUSP 800/160MG 20ML UDC PEG SCH ×2 (08:44→20:58)
[2016-08-06] MEDS: ESCITALOPRAM OXALATE ORAL SOLN 5 MG/5 ML PEG SCH (08:44)
[2016-08-06] MEDS: CLOPIDOGREL BISULFATE 75 MG TAB PEG SCH (08:44)
[2016-08-06] MEDS: ALLOPURINOL 100 MG TAB PEG SCH (08:44)
[2016-08-06] MEDS: PROPYLENE GLYCOL 0.6% (OPHTH) 15 DROP/ML 10ML BTL OPB SCH (08:45)
[2016-08-06] MEDS: LIFITEGRAST 5% OP SCH ×2 (08:45→21:17)
[2016-08-06] MEDS: TUBE FEEDING WATER FLUSH PEG SCH ×6 (08:46→21:16)
[2016-08-06] MEDS: GABAPENTIN 250 MG/5 ML 470 ML BTL PEG SCH ×3 (08:46→21:06)
[2016-08-06] MEDS: ENTERAL NUTRITION FORMULA PEG SCH ×3 (08:46→21:16)
[2016-08-06] MEDS: [UNRECOGNIZED DRUG - SUPPLY] OP SCH ×2 (08:46→21:17)
[2016-08-06] MEDS: ERTAPENEM IV 1 GM in SODIUM CHLOR 0.9% AD-VAN 50ML IV SCH (08:54)
[2016-08-06] MEDS: POLYETHYLENE (MIRALAX) 17 GM PACK PEG SCH ×2 (09:00→20:58)
[2016-08-06] MEDS ORDERED: PHARMACY GLYCEMIC MGMT CONSULT PRN (09:00)
[2016-08-06] MEDS: CASPOFUNGIN INJ 50 MG in SODIUM CHLORIDE 0.9% 250ML 250 ML IV SCH (09:23)
[2016-08-06] MEDS: ACETAMINOPHEN SOLN 650MG/20.3 ML UDC PEG PRN ×2 (09:31→19:36)
--- NOTE | 2016-08-06 09:48 | Critical Care Progress Note ---
Critical Care Progress Note Date of Service Aug 06, 2016. ICU Day ICU Day Number: [address] Coleman Subjective No complaints doing well Objective General: resting in bed, alert Skin: no rashes noted, no suspicious lesions, bandage on a lesion on right buttock CVS: S1/ S2 noted, RRR, no rubs/ murmurs noted, no cyanosis RVS: decreased bilat bases, tracheostomy in place, no resp distress, coarse breath sounds throughout, left sided crackles noted ENT: inspection WNL Neck: inspection WNL, full ROM of neck, tracheostomy noted ABD: BSx4 but hypoactive, distended abd, non tender MSK: atrophy of limbs; BL otherwise inspection WNL NVS: alert Current SOFA Score SOFA Score Response (Comments) Value Level of Hypotension No Hypotension 0 Total 0 Previous SOFA Scores 6 08/03/2016 Assessment & Plan 1. Acute hypercapnic hypoxemic respiratory failure, resolved. 2. Stenotrophomonas pneumonia. She could be colonized but she was, hypoxemic with yellow sputum and an infiltrate and underwent bronchoscopy with BAL on August 02. 2. Seizure, the reason for which she was brought to the Emergency Department. No further seizure activity since admission. 3. 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 4. Diarrhea, hopefully this is improving. She received Imodium today. Tube feeds are unchanged with the exception of removing the ProSource and with that, her BUN is starting to come down. She has a fecal management system in place. C. dif negative times 2. 5. Decubitus ulcer. 6. 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 7. Diabetes mellitus type 2. Improved blood sugars. 8. Chronic suppressive antibiotic therapy with ertapenem, fluconazole and gentamicin. 9. History of cerebrovascular accident. PLAN: NEUROLOGIC: Continue Lamictal. She is scheduled to increase that dose to 50 mg b.i.d. this week. She will increase to 75 mg b.i.d. a week later and then 100 mg b.i.d. A trough will be needed after 2 weeks on 100 mg b.i.d. Continue Neurontin, BuSpar, Lexapro, Plavix, and Aggrenox. PULMONARY: Anticipate new ventilator tomorrow per case management. CARDIOVASCULAR: Continue amlodipine. INFECTIOUS DISEASE: We will treat for a total of 14 days of treatment length for the pneumonia. Amphotericin B bladder washes to stop today. Discussed with Anaya Martinez, will continue caspofungin, and discontinue Invanz HEMATOLOGY: Continue subcutaneous heparin for DVT prophylaxis. RENAL: Mild hyperkalemia today we'll continue to monitor GASTROINTESTINAL: Continue Nutren tube feed boluses, probiotics and ammonium. Continue fecal management system for 1 more day as her wound appears to be improving and her stool volume is decreasing. We will add soluble fiber as binding agent for tube feeding intolerance ENDOCRINE: Better controlled blood sugars, glycemic consult SKIN: Continue local wound care. MISCELLANEOUS: Out of bed today if her caretakers can bring her chair from home. Consults & Procedures Consultants: Dr Eid- Neuro Sendy Martinez- ID Dr Luther- Pulm Procedures: NA Data Medications: Current Inpatient Medications Medications (Trade) Dose Ordered Sig/Tasha Route Start Time Stop Time Status Last Admin Dose Admin Dipyridamole/ Aspirin (Aggrenox 200MG/ 25MG Cap) 1 cap BID PO 07/30/16 09:00 08/29/16 08:59 08/06/16 08:43 1 CAP Bisacodyl (Dulcolax Supp) 10 mg SuMoWeFr@2100 MI 07/30/16 21:00 08/29/16 20:59 Future Hold 07/30/16 21:37 10 MG Phenazopyridine HCl (Pyridium Tab) 200 mg BID PRN PO 07/30/16 02:15 08/29/16 02:14 07/30/16 10:40 200 MG Heparin Sodium (Porcine) (Heparin Sq 5000 Unit/0.5ml) 5,000 unit Q8 SQ 07/30/16 06:00 08/29/16 05:59 08/06/16 05:20 5,000 UNIT Ondansetron HCl (Zofran Inj) 4 mg Q6H PRN IV 07/30/16 02:15 08/29/16 02:14 08/05/16 19:50 4 MG Miscellaneous (Iv Fluids Completed) 1 ea PRN PRN N/A 07/30/16 03:15 07/30/17 03:14 Glucose (Glucose 40% Gel) 15-30 GRAMS 15 GRAMS... UD PRN PO 07/30/16 03:30 08/29/16 03:29 Glucose (Glucose Chew Tab) 4-8 Tablets 4 Tabl... UD PRN PO 07/30/16 03:30 08/29/16 03:29 Dextrose (Dextrose 50% 50ML Syringe) 25-50ML OF 50% DW IV FOR... UD PRN IV 07/30/16 03:30 08/29/16 03:29 Glucagon 1 mg 1 mg UD PRN SQ 07/30/16 03:30 08/29/16 03:29 Ertapenem/Sodium Chloride (Invanz Iv/Nss Ad-Van 50ml) 50 ml @ 100 mls/hr Q24H IV 07/31/16 08:00 08/10/16 07:59 08/06/16 08:54 100 MLS/HR Bisacodyl (Dulcolax Supp) 10 mg TuTh@0530 MI 07/31/16 05:30 08/30/16 05:29 Future Hold 07/31/16 05:59 10 MG Lidocaine (Lidoderm Patch 5%) 2 patch DAILY@2100 TD 07/30/16 21:00 08/29/16 20:59 08/04/16 20:23 2 PATCH Miscellaneous (Remove Lidoderm Patch) 1 ea DAILY@0900 N/A 07/31/16 09:00 08/30/16 08:59 08/06/16 08:45 1 EA Acetaminophen (Tylenol Soln) 650 mg Q4H PRN PEG 07/30/16 18:15 08/29/16 18:14 08/06/16 09:31 650 MG Allopurinol (Zyloprim Tab) 100 mg DAILY PEG 07/31/16 09:00 08/30/16 08:59 08/06/16 08:44 100 MG Al Hydrox/Mg Hydrox/Simethicone (Maalox Max Susp) 15 ml Q4H PRN PEG 07/30/16 18:15 08/29/16 18:14 08/03/16 16:17 15 ML Amlodipine Besylate (Norvasc Tab) 3.75 mg DAILY PEG 07/31/16 09:00 08/30/16 08:59 08/06/16 08:43 3.75 MG Buspirone HCl (BusPAR TAB) 7.5 mg BID PEG 07/30/16 21:00 08/29/16 20:59 08/06/16 08:43 7.5 MG Clopidogrel Bisulfate (plAVix TAB) 75 mg DAILY PEG 07/31/16 09:00 08/30/16 08:59 08/06/16 08:44 75 MG Fluconazole (Diflucan Susp) 100 mg QPM PEG 07/30/16 21:00 08/09/16 20:59 08/05/16 22:43 100 MG Gabapentin (Neurontin) 100 mg QAM PEG 07/31/16 09:00 08/30/16 08:59 08/06/16 08:46 100 MG Gabapentin (Neurontin) 200 mg 1600 PEG 07/30/16 16:00 08/29/16 15:59 08/05/16 14:36 200 MG Pentosan Polysulfate Sodium (Elmiron) 100 mg BID PEG 07/30/16 21:00 08/29/16 20:59 08/06/16 08:43 100 MG Gabapentin (Neurontin) 600 mg HS PEG 07/30/16 21:00 08/29/16 20:59 08/05/16 20:19 600 MG Lorazepam (Ativan Tab) 0.5 mg DAILY PRN PEG 07/30/16 16:45 08/29/16 16:44 Magnesium Hydroxide (Milk Of Magnesia Susp) 30 ml Q12H PRN PEG 07/30/16 16:45 08/29/16 16:44 Future Hold Lamotrigine (Lamictal Tab) 25 mg BID PEG 07/30/16 21:00 08/06/16 23:59 08/06/16 08:43 25 MG Lamotrigine (Lamictal Tab) 50 mg BID PEG 08/07/16 09:00 09/06/16 08:59 Non-Formulary Medication (Non-Formulary Patient'S Own Med) 1 ea TID PEG 07/30/16 21:00 08/29/16 20:59 08/06/16 08:46 1 EA Sterile Water (Tube Feeding Water Flush) 1 ea TID PEG 07/30/16 21:00 08/29/16 20:59 08/06/16 08:46 1 EA Lifitegrast (Xiidra 5% Oph Soln) 1 drop BID OP 07/30/16 21:00 08/29/16 20:59 08/06/16 08:45 1 DROP Heparin Sodium (Porcine) (Heparin 100 Unit/ml 5ml Flush) 5 ml PRN PRN IV 07/30/16 23:45 08/29/16 23:44 Ipratropium [place] (Atrovent Hfa Inhaler) 4 puffs QIDR INH 07/31/16 16:00 08/30/16 15:59 08/06/16 08:05 4 PUFFS Albuterol (Ventolin Hfa Inhaler) 4 puffs QIDR INH 07/31/16 16:00 08/30/16 15:59 08/06/16 08:05 4 PUFFS Escitalopram Oxalate 20 mg 20 mg QAM PEG 08/01/16 09:00 08/31/16 08:59 08/06/16 08:44 20 MG Caspofungin 50 mg/ Sodium Chloride 260 ml @ 250 mls/hr DAILY@0900 IV 08/02/16 09:00 08/12/16 08:59 08/06/16 09:23 250 MLS/HR Amphotericin B/ Sterile Water (Fungizone Irrigation Inj/ Sterile Water 1000 ml) 1,000 ml @ 41.667 mls/ hr DAILY@1200 IR 08/01/16 12:00 08/06/16 11:59 08/05/16 14:21 41.667 MLS/HR Non-Formulary Medication (Non-Formulary Patient'S Own Med) 1 ea HS OP 08/02/16 21:00 09/01/16 20:59 08/05/16 22:42 1 EA Lactobacillus Acidophilus (Floranex Tab) 4 tab TID@0900,1400,2100 PEG 08/02/16 14:00 09/01/16 13:59 08/06/16 08:42 4 TAB Enteral Nutritional Formula (Prosource No Carb) 30 ml TID@0900,1400,2100 PEG 08/02/16 14:00 09/01/16 13:59 Future Hold 08/03/16 07:37 30 ML Sterile Water (Tube Feeding Water Flush) 1 ea TID@0900,1400,2100 PEG 08/02/16 14:00 09/01/16 13:59 08/06/16 08:46 1 EA Insulin Aspart (novoLOG ASPART) tube feeds = 54 g of C... TID@0845,1345,2045 SC 08/02/16 13:45 Future hold 08/06/16 08:55 7 UNITS Insulin Glargine (Lantus Solostar Pen) 22 unit HS SC 08/03/16 21:00 09/02/16 20:59 08/05/16 20:22 22 UNIT Loperamide HCl 2 mg 2 mg DAILY PRN PO 08/04/16 09:00 09/03/16 08:59 08/05/16 09:05 2 MG Promethazine HCl/ Sodium Chloride (Phenergan Inj/ Nss 50ml) 50.5 ml @ 204 mls/hr Q6H PRN IV 08/04/16 10:45 09/03/16 10:44 08/05/16 21:41 204 MLS/HR Trimethoprim/ Sulfamethoxazole (Septra Susp) 20 ml Q12 PEG 08/04/16 14:15 08/11/16 14:14 08/06/16 08:44 20 ML Miscellaneous Information (Consult Glycemic Management Pharmacy) 1 ea UD PRN N/A 08/06/16 09:00 09/05/16 08:59 Polyethylene (Miralax Powder Packet) 17 gm BID PEG 08/06/16 09:00 09/05/16 08:59 I & O: 24-Hour Column 08/06/16 08:00 Intake Total 3606 ml Output Total 4350 ml Balance -744 ml Vital Signs: Date Time Temp Pulse Resp B/P Pulse Ox O2 Delivery O2 Flow Rate FiO2 08/06/16 08:03 28 08/06/16 07:28 Mechanical Ventilator 28 08/06/16 07:28 28 08/06/16 07:28 36.9 70 16 132/67 95 Mechanical Ventilator 28 08/06/16 06:00 69 16 119/61 08/06/16 05:31 28 08/06/16 05:00 68 14 95 08/06/16 04:32 28 08/06/16 04:32 98 Mechanical Ventilator 2.0 28 08/06/16 04:00 36.9 78 26 130/99 92 08/06/16 03:00 75 14 94 08/06/16 02:19 28 08/06/16 02:00 75 16 124/55 93 08/06/16 01:00 73 15 93 08/06/16 00:25 28 08/06/16 00:25 98 Mechanical Ventilator 2.0 28 08/06/16 00:01 36.6 72 16 130/52 91 08/06/16 00:00 72 17 93 08/05/16 23:26 28 08/05/16 23:00 76 19 93 08/05/16 22:00 79 34 96 08/05/16 21:10 28 08/05/16 21:00 74 19 97 08/05/16 20:08 71 15 98 Mechanical Ventilator 28 08/05/16 20:00 98 Mechanical Ventilator 2.0 28 08/05/16 20:00 36.4 70 28 98 08/05/16 20:00 28 08/05/16 19:00 72 19 97 08/05/16 18:00 72 19 96 Mechanical Ventilator 28 08/05/16 16:25 86 15 93 Mechanical Ventilator 28 08/05/16 16:00 Mechanical Ventilator 28 08/05/16 16:00 85 16 139/64 92 Mechanical Ventilator 28 08/05/16 16:00 28 08/05/16 15:40 28 08/05/16 15:09 36.5 08/05/16 14:32 28 08/05/16 14:01 71 14 119/52 94 Mechanical Ventilator 28 08/05/16 12:01 36.4 71 16 132/59 92 Mechanical Ventilator 28 08/05/16 12:00 Mechanical Ventilator 28 08/05/16 12:00 28 08/05/16 11:28 28 08/05/16 10:00 82 16 153/83 94 Mechanical Ventilator 28 Laboratory Results: Last 24 Hours Test 08/05/16 14:29 08/05/16 20:08 08/05/16 23:47 08/06/16 03:54 Bedside Glucose 125 mg/dl 138 mg/dl 198 mg/dl 96 mg/dl Test 08/06/16 05:10 White Blood Count 8.05 K/uL Red Blood Count 3.57 M/uL Hemoglobin 10.4 g/dL Hematocrit 34.8 % Mean Corpuscular Volume 97.5 fL Mean Corpuscular Hemoglobin 29.1 pg Mean Corpuscular Hemoglobin Concent 29.9 g/dl RDW Standard Deviation 68.6 fL RDW Coefficient of Variation 19.0 % Platelet Count 234 K/uL Mean Platelet Volume 9.7 fL Sodium Level 138 mmol/L Potassium Level 5.3 mmol/L Chloride Level 102 mmol/L Carbon Dioxide Level 34 mmol/L Anion Gap 2.0 mmol/L Blood Urea Nitrogen 41 mg/dl Creatinine 0.54 mg/dl Est Creatinine Clear Calc Drug Dose 85.2 ml/min Estimated GFR () 111.6 Estimated GFR (Non- 96.3 BUN/Creatinine Ratio 75.6 Random Glucose 87 mg/dl Calcium Level 8.6 mg/dl
--- NOTE | 2016-08-06 10:19 | Pharmacy Progress Note ---
Glycemic Control Intl Consult Date of Service Aug 06, 2016. Scope Glycemic Pharmacist consulted by Dr Coleman on 08/06/16 for glycemic control and to write orders per [facility] inpatient glycemic control protocol Objective Weight (Kilograms): 69.700 Accuchecks BSG (last 24hrs): Test 08/05/16 14:29 08/05/16 20:08 08/05/16 23:47 08/06/16 03:54 Bedside Glucose 125 mg/dl (70-90) 138 mg/dl (70-90) 198 mg/dl (70-90) 96 mg/dl (70-90) Test 08/06/16 05:10 Random Glucose 87 mg/dl (70-99) Laboratory Data (last 24hrs) Test 08/06/16 05:10 Anion Gap 2.0 mmol/L BUN/Creatinine Ratio 75.6 Blood Urea Nitrogen 41 mg/dl Creatinine 0.54 mg/dl Potassium Level 5.3 mmol/L Sodium Level 138 mmol/L White Blood Count 8.05 K/uL HbA1c Item Value Date Time Hemoglobin A1c 6.0 % H 05/29/16 0645 Recent Pertinent Medications Outpatient Anti-diabetic Regimen: * Lantus 13 units HS The patient is currently receiving: * Basal insulin: Lantus 22 units every 24 hours * Correctional Insulin: Novolog Correction per scale ACHS Goal Range: Low 120 mg/dL - High 160 mg/dL Correction Factor: 15 mg/dL/unit * Prandial insulin: Per carb ratio of 1 unit per 6 grams CHO consumed Risk Factors for Insulin Resistance: * Infection * Diet * Mechanical Ventilation Assessment & Plan ASSESSMENT: * 71 yo diabetic F well known to glycemic service, admitted 07/30/16 for seizures , currently remains in ICU on broad spectrum antibiotic coverage * Since most recent discharge from the hospital, she is on new tube feeds and new insulin regimen as outpatient * Per dietary, Nutren bolus feeds provide 54 g CHO per bolus * Once tube feeds were restarted on 07/31/16, glycemic control was poor with multiple days of BSGs >200 mg/dL * Over the weekend, BSGs began to trend down, and fasting BSG X 2 days has been <100 mg/dL * Decrease Lantus by 20% * Continue Novolog with bolus feeds + 0200 check * Pt complaining of nausea today and I see patient did not receive lunch time bolus - if this continues, we may need to loosen coverage further * ADA & AACE recommend a goal blood sugar range 140-180 mg/dl for the majority of critically ill & non-critically ill patients. However, more stringent targets may be selected in individual cases. Patient currently controlled with goal range 120-160 mg/dl. This had been tightened last week due to sustained severe hyperglycemia. PLAN FOR INPATIENT GLYCEMIC CONTROL: * Decrease Lantus to 18 units SQ HS * Continue correction factor of 15 mg/dl/unit * Continue carb ratio of 1 unit per 6 grams CHO consumed * Continue goal range of Low 120 mg/dL - High 160 mg/dL * Please note that the plan above was derived based on current level of insulin resistance and hospital stress. These recommendations are appropriate for inpatient admission only. Plan of care upon discharge will need to be reassessed to avoid potential outpatient hypo/hyperglycemia. Thank you.
[2016-08-06] MEDS: ONDANSETRON INJ 2 MG/ML 2 ML VIAL IV PRN ×2 (10:47→19:36)
--- NOTE | 2016-08-06 14:40 | Infectious Disease Progress Nt ---
Progress Note Date of Service Aug 06, 2016. Subjective Pt evaluation today including: conversation w/ patient, conversation w/ family (caregiver), physical exam, chart review, lab review, review of studies, conversation w/ center lead consultant (Dr Coleman), review of inpatient medication list Patient is feeling slightly improved today. She states that she continues to have trouble breathing while laying down. Her WBC count this morning was 8.05, and her O2 saturation has been in the upper 90s for the most part over the weekend. The patient's sputum culture is growing Stenotrophomonas and is noted to have been placed on Bactrim as well as other abx therapy. Bronch washing is also growing GNB pending identification. Repeat CXR showed persistent left basilar airspace opacity and improvement of pulmonary edema. All Other Systems: Reviewed and Negative Medications Current Inpatient Medications Medications (Trade) Dose Ordered Sig/Tasha Route Start Time Stop Time Status Last Admin Dose Admin Dipyridamole/ Aspirin (Aggrenox 200MG/ 25MG Cap) 1 cap BID PO 07/30/16 09:00 08/29/16 08:59 08/06/16 08:43 1 CAP Bisacodyl (Dulcolax Supp) 10 mg SuMoWeFr@2100 DE 07/30/16 21:00 08/29/16 20:59 Future Hold 07/30/16 21:37 10 MG Phenazopyridine HCl (Pyridium Tab) 200 mg BID PRN PO 07/30/16 02:15 08/29/16 02:14 07/30/16 10:40 200 MG Heparin Sodium (Porcine) (Heparin Sq 5000 Unit/0.5ml) 5,000 unit Q8 SQ 07/30/16 06:00 08/29/16 05:59 08/06/16 05:20 5,000 UNIT Ondansetron HCl (Zofran Inj) 4 mg Q6H PRN IV 07/30/16 02:15 08/29/16 02:14 08/06/16 10:47 4 MG Miscellaneous (Iv Fluids Completed) 1 ea PRN PRN N/A 07/30/16 03:15 07/30/17 03:14 Glucose (Glucose 40% Gel) 15-30 GRAMS 15 GRAMS... UD PRN PO 07/30/16 03:30 08/29/16 03:29 Glucose (Glucose Chew Tab) 4-8 Tablets 4 Tabl... UD PRN PO 07/30/16 03:30 08/29/16 03:29 Dextrose (Dextrose 50% 50ML Syringe) 25-50ML OF 50% DW IV FOR... UD PRN IV 07/30/16 03:30 08/29/16 03:29 Glucagon 1 mg 1 mg UD PRN SQ 07/30/16 03:30 08/29/16 03:29 Ertapenem/Sodium Chloride (Invanz Iv/Nss Ad-Van 50ml) 50 ml @ 100 mls/hr Q24H IV 07/31/16 08:00 08/10/16 07:59 08/06/16 08:54 100 MLS/HR Bisacodyl (Dulcolax Supp) 10 mg TuTh@0530 DE 07/31/16 05:30 08/30/16 05:29 Future Hold 07/31/16 05:59 10 MG Lidocaine (Lidoderm Patch 5%) 2 patch DAILY@2100 TD 07/30/16 21:00 08/29/16 20:59 08/04/16 20:23 2 PATCH Miscellaneous (Remove Lidoderm Patch) 1 ea DAILY@0900 N/A 07/31/16 09:00 08/30/16 08:59 08/06/16 08:45 1 EA Acetaminophen (Tylenol Soln) 650 mg Q4H PRN PEG 07/30/16 18:15 08/29/16 18:14 08/06/16 09:31 650 MG Allopurinol (Zyloprim Tab) 100 mg DAILY PEG 07/31/16 09:00 08/30/16 08:59 08/06/16 08:44 100 MG Al Hydrox/Mg Hydrox/Simethicone (Maalox Max Susp) 15 ml Q4H PRN PEG 07/30/16 18:15 08/29/16 18:14 08/03/16 16:17 15 ML Amlodipine Besylate (Norvasc Tab) 3.75 mg DAILY PEG 07/31/16 09:00 08/30/16 08:59 08/06/16 08:43 3.75 MG Buspirone HCl (BusPAR TAB) 7.5 mg BID PEG 07/30/16 21:00 08/29/16 20:59 08/06/16 08:43 7.5 MG Clopidogrel Bisulfate (plAVix TAB) 75 mg DAILY PEG 07/31/16 09:00 08/30/16 08:59 08/06/16 08:44 75 MG Fluconazole (Diflucan Susp) 100 mg QPM PEG 07/30/16 21:00 08/09/16 20:59 08/05/16 22:43 100 MG Gabapentin (Neurontin) 100 mg QAM PEG 07/31/16 09:00 08/30/16 08:59 08/06/16 08:46 100 MG Gabapentin (Neurontin) 200 mg 1600 PEG 07/30/16 16:00 08/29/16 15:59 08/05/16 14:36 200 MG Pentosan Polysulfate Sodium (Elmiron) 100 mg BID PEG 07/30/16 21:00 08/29/16 20:59 08/06/16 08:43 100 MG Gabapentin (Neurontin) 600 mg HS PEG 07/30/16 21:00 08/29/16 20:59 08/05/16 20:19 600 MG Lorazepam (Ativan Tab) 0.5 mg DAILY PRN PEG 07/30/16 16:45 08/29/16 16:44 Magnesium Hydroxide (Milk Of Magnesia Susp) 30 ml Q12H PRN PEG 07/30/16 16:45 08/29/16 16:44 Future Hold Lamotrigine (Lamictal Tab) 25 mg BID PEG 07/30/16 21:00 08/06/16 23:59 08/06/16 08:43 25 MG Lamotrigine (Lamictal Tab) 50 mg BID PEG 08/07/16 09:00 09/06/16 08:59 Non-Formulary Medication (Non-Formulary Patient'S Own Med) 1 ea TID PEG 07/30/16 21:00 08/29/16 20:59 08/06/16 08:46 1 EA Sterile Water (Tube Feeding Water Flush) 1 ea TID PEG 07/30/16 21:00 08/29/16 20:59 08/06/16 08:46 1 EA Lifitegrast (Xiidra 5% Oph Soln) 1 drop BID OP 07/30/16 21:00 08/29/16 20:59 08/06/16 08:45 1 DROP Heparin Sodium (Porcine) (Heparin 100 Unit/ml 5ml Flush) 5 ml PRN PRN IV 07/30/16 23:45 08/29/16 23:44 Ipratropium [place] (Atrovent Hfa Inhaler) 4 puffs QIDR INH 07/31/16 16:00 08/30/16 15:59 08/06/16 11:08 4 PUFFS Albuterol (Ventolin Hfa Inhaler) 4 puffs QIDR INH 07/31/16 16:00 08/30/16 15:59 08/06/16 11:08 4 PUFFS Escitalopram Oxalate 20 mg 20 mg QAM PEG 08/01/16 09:00 08/31/16 08:59 08/06/16 08:44 20 MG Caspofungin/ Sodium Chloride (Cancidas Inj/ Nss 250ml) 260 ml @ 250 mls/hr DAILY@0900 IV 08/02/16 09:00 08/12/16 08:59 08/06/16 09:23 250 MLS/HR Non-Formulary Medication (Non-Formulary Patient'S Own Med) 1 ea HS OP 08/02/16 21:00 09/01/16 20:59 08/05/16 22:42 1 EA Lactobacillus Acidophilus (Floranex Tab) 4 tab TID@0900,1400,2100 PEG 08/02/16 14:00 09/01/16 13:59 08/06/16 08:42 4 TAB Enteral Nutritional Formula (Prosource No Carb) 30 ml TID@0900,1400,2100 PEG 08/02/16 14:00 09/01/16 13:59 Future Hold 08/03/16 07:37 30 ML Sterile Water (Tube Feeding Water Flush) 1 ea TID@0900,1400,2100 PEG 08/02/16 14:00 09/01/16 13:59 08/06/16 08:46 1 EA Insulin Aspart (novoLOG ASPART) tube feeds = 54 g of C... TID@0845,1345,2045 SC 08/02/16 13:45 Future hold 08/06/16 08:55 7 UNITS Loperamide HCl 2 mg 2 mg DAILY PRN PO 08/04/16 09:00 09/03/16 08:59 08/05/16 09:05 2 MG Promethazine HCl/ Sodium Chloride (Phenergan Inj/ Nss 50ml) 50.5 ml @ 204 mls/hr Q6H PRN IV 08/04/16 10:45 09/03/16 10:44 08/05/16 21:41 204 MLS/HR Trimethoprim/ Sulfamethoxazole (Septra Susp) 20 ml Q12 PEG 08/04/16 14:15 08/11/16 14:14 08/06/16 08:44 20 ML Miscellaneous Information (Consult Glycemic Management Pharmacy) 1 ea UD PRN N/A 08/06/16 09:00 09/05/16 08:59 Polyethylene (Miralax Powder Packet) 17 gm BID PEG 08/06/16 09:00 09/05/16 08:59 08/06/16 09:00 17 GM Insulin Glargine (Lantus Solostar Pen) 18 unit HS SC 08/06/16 21:00 09/05/16 20:59 Objective Vital Signs Date Time Temp Pulse Resp B/P Pulse Ox O2 Delivery O2 Flow Rate FiO2 08/06/16 13:17 37.0 70 20 132/60 93 Mechanical Ventilator 28 08/06/16 13:00 67 20 132/60 08/06/16 12:00 Mechanical Ventilator 28 08/06/16 12:00 28 08/06/16 12:00 70 14 116/50 08/06/16 11:08 28 08/06/16 11:00 75 18 121/64 08/06/16 10:00 78 18 147/67 08/06/16 09:30 37.0 77 16 133/71 92 Mechanical Ventilator 08/06/16 09:00 70 17 133/71 08/06/16 08:03 28 08/06/16 08:00 Mechanical Ventilator 28 08/06/16 08:00 79 17 147/64 08/06/16 07:28 Mechanical Ventilator 28 08/06/16 07:28 28 08/06/16 07:28 36.9 70 16 132/67 95 Mechanical Ventilator 28 08/06/16 07:23 72 15 132/67 08/06/16 07:00 70 14 96 08/06/16 06:00 69 16 119/61 08/06/16 05:31 28 08/06/16 05:00 68 14 95 08/06/16 04:32 28 08/06/16 04:32 98 Mechanical Ventilator 2.0 28 08/06/16 04:00 36.9 78 26 130/99 92 08/06/16 03:00 75 14 94 08/06/16 02:19 28 08/06/16 02:00 75 16 124/55 93 08/06/16 01:00 73 15 93 08/06/16 00:25 28 08/06/16 00:25 98 Mechanical Ventilator 2.0 28 08/06/16 00:01 36.6 72 16 130/52 91 08/06/16 00:00 72 17 93 08/05/16 23:26 28 08/05/16 23:00 76 19 93 08/05/16 22:00 79 34 96 08/05/16 21:10 28 08/05/16 21:00 74 19 97 08/05/16 20:08 71 15 98 Mechanical Ventilator 28 08/05/16 20:00 98 Mechanical Ventilator 2.0 28 08/05/16 20:00 36.4 70 28 98 08/05/16 20:00 28 08/05/16 19:00 72 19 97 08/05/16 18:00 72 19 96 Mechanical Ventilator 28 08/05/16 16:25 86 15 93 Mechanical Ventilator 28 08/05/16 16:00 Mechanical Ventilator 28 08/05/16 16:00 85 16 139/64 92 Mechanical Ventilator 28 08/05/16 16:00 28 08/05/16 15:40 28 08/05/16 15:09 36.5 Physical Exam General Appearance: WD/WN, no apparent distress Eyes: normal inspection, sclerae normal ENT: normal ENT inspection Neck: + pertinent finding (tracheostomy) Respiratory/Chest: + crackles (mild throughout b/l lungs- improved), + pertinent finding (ventilated) Cardiovascular: regular rate, rhythm Abdomen: normal bowel sounds, + distended Extremities: + pertinent finding (quadriplegic) Neurologic/Psychiatric: alert, normal mood/affect Skin: normal color, warm/dry, no rash Laboratory Results CHEST ONE VIEW PORTABLE HISTORY: Follow-up pulmonary edema. COMPARISON: Chest 08/04/2016. FINDINGS: No pneumothorax. Cardiomegaly and small bilateral pleural effusions persist. Mild to moderate pulmonary edema has improved. Satisfactory support line placement which is unchanged in position. Left basilar densities persist. IMPRESSION: 1. Improvement in the pulmonary edema pattern. 2. Persistent left basilar airspace opacities. This could represent atelectasis or pneumonia. 3. Satisfactory support line placement, unchanged. RUN DATE: 08/04/16 [facility] PAGE 1 RUN TIME: 1133 Specimen Inquiry PATIENT: CARY WILLSON LOC: [facility] U # : [id number] AGE/SX: 71/F ROOM: E108 REG : 07/30/[address]: Dirk Mckeon M : 1945 BED: 1 DIS : STATUS: ADM IN TLOC: SPEC #: [id number] BRYCE: 07/31/16 STATUS: COMP REQ #: [id number] RECD: 07/31/16-[address]: Harmony Trimble MD SOURCE: SPUTUM ENTR: 07/31/[address] [facility] [address]: Aleyda Moses MD SPDC: T TUBE Dirk Machado M.D. Gilbert, Jennifer L., Alvaro Dodge M.D. Kedem, Roy ., MD McDougall, Leslie S D.O. ORDERED: SPUT CULT/SMR COMMENTS: Has Specimen Been Obtained/Collected? Y Procedure Result Verified Site GRAM STAIN Final 07/31/16-1404 RESULT MANY POLYS FEW MONONUCLEATED CELLS FEW GRAM NEGATIVE BACILLI SPUTUM CULTURE Final 08/04/16-1133 Organism 1 STENOTROPHOMONAS MALTOPHILIA QUANITY FEW SENS SENSITIVITY TO FOLLOW NORMAL SUSI LIGHT NORMAL SUSI 1. STENOTROPHOMONAS MALTOPHILIA Target Route Dose RX AB Cost M.I.C. IQ ------ ----- ------ -- ------ -------- - ------ TRIMET/SULFA S <=2/38 CEFTAZIDIME S 8 LEVOFLOXACIN R >4 S = SENSITIVE I = INTERMEDIATE R = RESISTANT Last 24 Hours Test 08/05/16 20:08 08/05/16 23:47 08/06/16 03:54 08/06/16 05:10 Bedside Glucose 138 mg/dl 198 mg/dl 96 mg/dl White Blood Count 8.05 K/uL Red Blood Count 3.57 M/uL Hemoglobin 10.4 g/dL Hematocrit 34.8 % Mean Corpuscular Volume 97.5 fL Mean Corpuscular Hemoglobin 29.1 pg Mean Corpuscular Hemoglobin Concent 29.9 g/dl RDW Standard Deviation 68.6 fL RDW Coefficient of Variation 19.0 % Platelet Count 234 K/uL Mean Platelet Volume 9.7 fL Sodium Level 138 mmol/L Potassium Level 5.3 mmol/L Chloride Level 102 mmol/L Carbon Dioxide Level 34 mmol/L Anion Gap 2.0 mmol/L Blood Urea Nitrogen 41 mg/dl Creatinine 0.54 mg/dl Est Creatinine Clear Calc Drug Dose 85.2 ml/min Estimated GFR () 111.6 Estimated GFR (Non- 96.3 BUN/Creatinine Ratio 75.6 Random Glucose 87 mg/dl Calcium Level 8.6 mg/dl Test 08/06/16 11:23 08/06/16 13:00 Bedside Glucose 165 mg/dl 186 mg/dl Assessment and Plan Quadriplegic female with history of recurrent UTI and pneumonia now with possible left sided pneumonia and Non-nara albicans yeast UTI. Stenotrophomonas growing from sputum culture, recommend continuing Bactrim for 10-14 days with patient's history of recurrent infection. Today is day 5 of Ampho bladder irrigation, so therefore will D/C after today. Will continue IV Caspofungin for now though with concern of ascending UTI in light of recurrent Non-nara albicans UTI's. Question whether or not this patient still needs IV Ertapenem, but will likely continue pending identification of GNB in sputum though this is likely also Stenotrophomonas. We will follow. PROVIDER ADDENDUM: Pt. reviewed with Ms. Martinez. Agree with above assessment.
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
[2016-08-06] MEDS: FLUCONAZOLE SUSP 100 MG/10 ML UDP PEG SCH (20:58)
[2016-08-06] MEDS ORDERED: INSULIN GLARGINE SOLOSTAR 100 UNITS/ML 3 ML PEN SC SCH (21:00)
[2016-08-06] MEDS: LIDODERM (LIDOCAINE) PATCH 5% TD SCH (21:00)
[2016-08-06] MEDS: [UNRECOGNIZED DRUG - OTHER] OP SCH (21:17)
[2016-08-06] MEDS: MELATONIN 3 MG TAB PO PRN (21:18)
[2016-08-06] MEDS: PROMETHAZINE HCL INJ 12.5 MG in SODIUM CHLORIDE 0.9% 50ML 50 ML IV PRN (22:39)
[2016-08-07] VITALS (13 sets, daily range): BP systolic 130–156; BP diastolic 56–88; PULSE 67–81; TEMP 36.7–37.2; O2SAT 92–97; Ht 152.4 cm; Wt 62.9 kg
[2016-08-07] MEDS ORDERED: INSULIN ASPART 100 UNITS/ML 3 ML PEN SC SCH (02:00)
[2016-08-07] MEDS: HEPARIN SOD 5000 UNIT/0.5 ML CARP SQ SCH ×3 (05:47→21:57)
[2016-08-07 05:50] LABS: HEMATOCRIT 33.4 % (37-47); MEAN CELL VOLUME 96.5 fL (80-100); MEAN CORPUSCULAR HEMOGLOBIN 29.2 pg (25-34); MEAN CORPUSCULAR HGB CONC 30.2 g/dl (32-36); MEAN PLATELET VOLUME 9.2 fL (7.4-10.4); PLATELET COUNT 220 K/uL (130-400); RED BLOOD COUNT 3.46 M/uL (4.2-5.4); WHITE BLOOD COUNT 7.31 K/uL (4.8-10.8)
[2016-08-07 06:38] LABS: BUN/CREATININE RATIO 45.3 (10-20); CALCIUM 8.6 mg/dl (8.5-10.1); CREATININE 0.54 mg/dl (0.60-1.20); MAGNESIUM 2.2 mg/dl (1.8-2.4); PHOSPHORUS 3.9 mg/dl (2.5-4.9)
[2016-08-07] MEDS: ONDANSETRON INJ 2 MG/ML 2 ML VIAL IV PRN ×2 (07:11→22:43)
[2016-08-07] MEDS: ENTERAL NUTRITION FORMULA PEG SCH ×3 (07:30→20:29)
[2016-08-07] MEDS: ALBUTEROL HFA 8 GM INHALER INH SCH ×4 (07:34→19:55)
[2016-08-07] MEDS: IPRATROPIUM BROMIDE HFA INHALER INH SCH ×4 (07:34→19:55)
[2016-08-07] MEDS: LACTOBACILLUS ACIDOPHILUS (FLORANEX) TAB PEG SCH ×3 (07:57→21:59)
[2016-08-07] MEDS: CLOPIDOGREL BISULFATE 75 MG TAB PEG SCH (07:58)
[2016-08-07] MEDS: DIPYRIDAMOLE/ASPIRIN CAP PO SCH ×2 (07:58→21:54)
[2016-08-07] MEDS: ALLOPURINOL 100 MG TAB PEG SCH (07:59)
[2016-08-07] MEDS: AMLODIPINE BESYLATE 5 MG TAB PEG SCH (07:59)
[2016-08-07] MEDS: BusPIRone 15 MG TAB PEG SCH ×2 (07:59→21:58)
[2016-08-07] MEDS: TUBE FEEDING WATER FLUSH PEG SCH ×6 (08:00→21:00)
[2016-08-07] MEDS: SULFA/TRIMETH SUSP 800/160MG 20ML UDC PEG SCH ×2 (08:00→21:53)
[2016-08-07] MEDS: GABAPENTIN 250 MG/5 ML 470 ML BTL PEG SCH ×3 (08:00→21:53)
[2016-08-07] MEDS: ESCITALOPRAM OXALATE ORAL SOLN 5 MG/5 ML PEG SCH (08:00)
[2016-08-07] MEDS: POLYETHYLENE (MIRALAX) 17 GM PACK PEG SCH ×2 (08:01→21:53)
[2016-08-07] MEDS: PROPYLENE GLYCOL 0.6% (OPHTH) 15 DROP/ML 10ML BTL OPB SCH (08:02)
[2016-08-07] MEDS: PENTOSAN POLYSULFATE SODIUM 100 MG CAP PEG SCH ×2 (08:02→21:52)
[2016-08-07] MEDS: LIFITEGRAST 5% OP SCH ×2 (08:02→22:02)
[2016-08-07] MEDS: [UNRECOGNIZED DRUG - SUPPLY] OP SCH ×2 (08:02→22:01)
[2016-08-07] MEDS: ERTAPENEM IV 1 GM in SODIUM CHLOR 0.9% AD-VAN 50ML IV SCH (08:02)
[2016-08-07] MEDS: INSULIN ASPART 100 UNITS/ML 3 ML PEN SC SCH ×3 (08:12→20:28)
--- NOTE | 2016-08-07 08:46 | Pain Management Progress Note ---
Pain Management Progress Note Date of Service Aug 07, 2016. Subjective Florence Farris is 71-year-old patient with paraplegia due to spinal cord injury in the remote past. 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 Florence has an implanted intrathecal drug delivery system infusing intrathecal hydromorphone, bupivacaine, clonidine, and baclofen to manage her spasticity and neuropathic pain. She has been decreased by 20% due to pneumonia and inability to refill IT pump at this time. She denies any increase in her typical neuropathic pain, or any increased spasticity and reports no significant change in her efficacy from her intrathecal infusion. No new issues overnight. Objective Vital Signs: Last Vital Signs Documentation Date Time Temp Pulse Resp B/P Pulse Ox O2 Delivery O2 Flow Rate FiO2 08/07/16 07:34 28 08/07/16 06:00 70 16 132/74 96 Mechanical Ventilator 08/07/16 00:01 36.8 08/06/16 04:32 2.0 Physical Exam: AAOx3 on vent via trach Intrathecal pump and catheter sites intact without issue Arm splints in place. No significant spasm noted, but mild-mod rigidity in all 4 extremities. Laboratory (Last CBC): 08/07/16 05:45 Assessment Spastic Quadriplegia requiring IT baclofen/bupivicaine/clonidine for spasticity control Current pneumonia on Abx per ID/ICU team Recent seizure Recommendations Will decrease rate of IT pump by 5% today to allow for a longer refill interval in light of pneumonia and 14 day Abx cycle Has an appt for refill on 08/14 at 2pm at the [facility] pain mgt office Will order baclofen 10mg po q3prn pain/spasm Pump printout placed on chart. Appreciate ICU/ID/Hospitalist assistance in caring for this patient. Please call with any questions. [employer] Voice Recognition This chart was completed in part utilizing [employer] Voice Recognition Software. Random word insertions, pronoun errors, and incomplete sentences are an occasional consequence of this system due to software limitations and ambient noise. Any questions or concerns about the content, text or information contained within the body of this dictation should be directly addressed to the provider for clarification.
[2016-08-07] MEDS: CASPOFUNGIN INJ 50 MG in SODIUM CHLORIDE 0.9% 250ML 250 ML IV SCH (09:00)
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
[2016-08-07] MEDS: LOPERAMIDE LIQUID 1MG/7.5ML 120ML BTL PO PRN (13:33)
[2016-08-07] MEDS: BACLOFEN 10 MG TAB PO PRN ×2 (13:56→21:54)
--- NOTE | 2016-08-07 16:26 | Pharmacy Progress Note ---
Glycemic Control: Progress Nt Date of Service Aug 07, 2016. Scope Glycemic Pharmacist consulted by Dr Coleman on 08/06/16 for glycemic control and to write orders per [facility] inpatient glycemic control protocol. Objective Accuchecks BSG (last 24hrs): Test 08/06/16 20:51 08/07/16 02:04 08/07/16 05:45 08/07/16 08:09 Bedside Glucose 185 mg/dl (70-90) 88 mg/dl (70-90) 122 mg/dl (70-90) Random Glucose 66 mg/dl (70-99) Test 08/07/16 13:24 Bedside Glucose 118 mg/dl (70-90) Laboratory Data (last 24hrs) Test 08/07/16 05:45 Anion Gap 2.0 mmol/L BUN/Creatinine Ratio 45.3 Blood Urea Nitrogen 24 mg/dl Creatinine 0.54 mg/dl Potassium Level 5.0 mmol/L Sodium Level 138 mmol/L White Blood Count 7.31 K/uL HbA1c: 6.0% 05/29/16 Recent Pertinent Medications Outpatient Anti-diabetic Regimen: * Lantus 13 units Q HS * A1c = 6.0 % 05/29/16 The patient is currently receiving: * Basal insulin: Lantus 18 units every 24 hours - dosed at bedtime * Correctional Insulin: Novolog Correction per scale TID w/ Nutren boluses and at 0200 Goal Range: Low 120 mg/dL - High 160 mg/dL Correction Factor: 15 mg/dL/unit for all checks except 20mg/dL/unit at 0200 * Prandial insulin: Per carb ratio of 1 unit per 6 grams CHO consumed * Oral Agents: None Risk Factors for Insulin Resistance: * Steroids: n/a * Infection: caspofungin + fluconazole + Invanz + Bactrim susp * Pressors: n/a * IVF: n/a * Recent Surgery: n/a * Diet: Nutren 2.0 267mL bolus feed TID * Mechanical Ventilation: yes Assessment & Plan ASSESSMENT: 08/06/16 * 71 yo diabetic F well known to glycemic service, admitted 07/30/16 for seizures , currently remains in ICU on broad spectrum antibiotic coverage * Since most recent discharge from the hospital, she is on new tube feeds and new insulin regimen as outpatient * Per dietary, Nutren bolus feeds provide 54 g CHO per bolus * Once tube feeds were restarted on 07/31/16, glycemic control was poor with multiple days of BSGs >200 mg/dL * Over the weekend, BSGs began to trend down, and fasting BSG X 2 days has been <100 mg/dL * Decrease Lantus by 20% * Continue Novolog with bolus feeds + 0200 check * Pt complaining of nausea today and I see patient did not receive lunch time bolus - if this continues, we may need to loosen coverage further * ADA & AACE recommend a goal blood sugar range 140-180 mg/dl for the majority of critically ill & non-critically ill patients. However, more stringent targets may be selected in individual cases. Patient currently controlled with goal range 120-160 mg/dl. This had been tightened last week due to sustained severe hyperglycemia. 08/07/16 * Fasting BSG 66-122 this AM; this is following a Lantus dose reduction yesterday to 18 units Q HS - will reduce dose even further * Patient's insulin sensitivity appears to be improving; she has not received Novolog boluses with the Nutren today yet BSGs are not climbing - will reduce CF and CR doses as well PLAN FOR INPATIENT GLYCEMIC CONTROL: * Decreasing Lantus to 13 units SQ Q HS - hold if BSG less than 110 * Changing correction factor to 25 mg/dl/unit * Changing carb ratio to 1 unit per 8 grams CHO consumed * Continuing goal range of Low 120 mg/dL - High 160 mg/dL RECOMMENDATIONS FOR DISCHARGE: * * Please note that the plan above was derived based on current level of insulin resistance and hospital stress. These recommendations are appropriate for inpatient admission only. Plan of care upon discharge will need to be reassessed to avoid potential outpatient hypo/hyperglycemia. Thank you.
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
--- NOTE | 2016-08-07 20:50 | Critical Care Progress Note ---
Critical Care Progress Note Date of Service Aug 07, 2016. ICU Day ICU Day Number: [address] Coleman Subjective No complaint this morning Objective General: resting in bed, alert Skin: no rashes noted, no suspicious lesions, bandage on a lesion on right buttock CVS: S1/ S2 noted, RRR, no rubs/ murmurs noted, no cyanosis RVS: decreased bilat bases, tracheostomy in place, no resp distress, coarse breath sounds throughout, left sided crackles noted ENT: inspection WNL Neck: inspection WNL, full ROM of neck, tracheostomy noted ABD: BSx4 but hypoactive, distended abd, non tender MSK: atrophy of limbs; BL otherwise inspection WNL NVS: alert Current SOFA Score SOFA Score Response (Comments) Value Level of Hypotension No Hypotension 0 Total 0 Previous SOFA Scores 6 08/03/2016 Assessment & Plan 1. Acute hypercapnic hypoxemic respiratory failure, resolved. 2. Stenotrophomonas pneumonia. 2. Seizure, the reason for which she was brought to the Emergency Department. No further seizure activity since admission. 3. Funguria 4. Diarrhea 5. Decubitus ulcer. 6. 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 7. Diabetes mellitus type 2. Improved blood sugars. 8. Chronic suppressive antibiotic therapy 9. History of cerebrovascular accident. PLAN: NEUROLOGIC: Continue Lamictal. She is scheduled to increase that dose to 50 mg b.i.d. this week. She will increase to 75 mg b.i.d. a week later and then 100 mg b.i.d. A trough will be needed after 2 weeks on 100 mg b.i.d. Continue Neurontin, BuSpar, Lexapro, Plavix, and Aggrenox. PULMONARY: Conversion continue ventilator today CARDIOVASCULAR: Continue amlodipine. INFECTIOUS DISEASE: We will treat for a total of 14 days of treatment length for the pneumonia. Discussed with Anaya Martinez, will continue caspofungin, and discontinue Invanz HEMATOLOGY: Continue subcutaneous heparin for DVT prophylaxis. RENAL: Monitor electrolytes GASTROINTESTINAL: Added Imodium daily in addition to fiber ENDOCRINE: Better controlled blood sugars, glycemic consult SKIN: Continue local wound care. MISCELLANEOUS: Out of bed today if her caretakers can bring her chair from home. Consults & Procedures Consultants: Dr Eid- Neuro Sendy Martinez- ID Dr Luther- Pulm Procedures: NA Data Medications: Current Inpatient Medications Medications (Trade) Dose Ordered Sig/Tasha Route Start Time Stop Time Status Last Admin Dose Admin Dipyridamole/ Aspirin (Aggrenox 200MG/ 25MG Cap) 1 cap BID PO 07/30/16 09:00 08/29/16 08:59 08/07/16 07:58 1 CAP Bisacodyl (Dulcolax Supp) 10 mg SuMoWeFr@2100 RI 07/30/16 21:00 08/29/16 20:59 Future Hold 07/30/16 21:37 10 MG Phenazopyridine HCl (Pyridium Tab) 200 mg BID PRN PO 07/30/16 02:15 08/29/16 02:14 07/30/16 10:40 200 MG Heparin Sodium (Porcine) (Heparin Sq 5000 Unit/0.5ml) 5,000 unit Q8 SQ 07/30/16 06:00 08/29/16 05:59 08/07/16 13:37 5,000 UNIT Ondansetron HCl (Zofran Inj) 4 mg Q6H PRN IV 07/30/16 02:15 08/29/16 02:14 08/07/16 07:11 4 MG Miscellaneous (Iv Fluids Completed) 1 ea PRN PRN N/A 07/30/16 03:15 07/30/17 03:14 Glucose (Glucose 40% Gel) 15-30 GRAMS 15 GRAMS... UD PRN PO 07/30/16 03:30 08/29/16 03:29 Glucose (Glucose Chew Tab) 4-8 Tablets 4 Tabl... UD PRN PO 07/30/16 03:30 08/29/16 03:29 Dextrose (Dextrose 50% 50ML Syringe) 25-50ML OF 50% DW IV FOR... UD PRN IV 07/30/16 03:30 08/29/16 03:29 Glucagon 1 mg 1 mg UD PRN SQ 07/30/16 03:30 08/29/16 03:29 Ertapenem/Sodium Chloride (Invanz Iv/Nss Ad-Van 50ml) 50 ml @ 100 mls/hr Q24H IV 07/31/16 08:00 08/10/16 07:59 08/07/16 08:02 100 MLS/HR Bisacodyl (Dulcolax Supp) 10 mg TuTh@0530 RI 07/31/16 05:30 08/30/16 05:29 Future Hold 07/31/16 05:59 10 MG Lidocaine (Lidoderm Patch 5%) 2 patch DAILY@2100 TD 07/30/16 21:00 08/29/16 20:59 08/04/16 20:23 2 PATCH Miscellaneous (Remove Lidoderm Patch) 1 ea DAILY@0900 N/A 07/31/16 09:00 08/30/16 08:59 08/07/16 09:00 1 EA Acetaminophen (Tylenol Soln) 650 mg Q4H PRN PEG 07/30/16 18:15 08/29/16 18:14 08/06/16 19:36 650 MG Allopurinol (Zyloprim Tab) 100 mg DAILY PEG 07/31/16 09:00 08/30/16 08:59 08/07/16 07:59 100 MG Al Hydrox/Mg Hydrox/Simethicone (Maalox Max Susp) 15 ml Q4H PRN PEG 07/30/16 18:15 08/29/16 18:14 08/03/16 16:17 15 ML Amlodipine Besylate (Norvasc Tab) 3.75 mg DAILY PEG 07/31/16 09:00 08/30/16 08:59 08/07/16 07:59 3.75 MG Buspirone HCl (BusPAR TAB) 7.5 mg BID PEG 07/30/16 21:00 08/29/16 20:59 08/07/16 07:59 7.5 MG Clopidogrel Bisulfate (plAVix TAB) 75 mg DAILY PEG 07/31/16 09:00 08/30/16 08:59 08/07/16 07:58 75 MG Fluconazole (Diflucan Susp) 100 mg QPM PEG 07/30/16 21:00 08/09/16 20:59 08/06/16 20:58 100 MG Gabapentin (Neurontin) 100 mg QAM PEG 07/31/16 09:00 08/30/16 08:59 08/07/16 08:00 100 MG Gabapentin (Neurontin) 200 mg 1600 PEG 07/30/16 16:00 08/29/16 15:59 08/07/16 15:55 200 MG Pentosan Polysulfate Sodium (Elmiron) 100 mg BID PEG 07/30/16 21:00 08/29/16 20:59 08/07/16 08:02 100 MG Gabapentin (Neurontin) 600 mg HS PEG 07/30/16 21:00 08/29/16 20:59 08/06/16 21:06 600 MG Lorazepam (Ativan Tab) 0.5 mg DAILY PRN PEG 07/30/16 16:45 08/29/16 16:44 Magnesium Hydroxide (Milk Of Magnesia Susp) 30 ml Q12H PRN PEG 07/30/16 16:45 08/29/16 16:44 Future Hold Lamotrigine (Lamictal Tab) 50 mg BID PEG 08/07/16 09:00 09/06/16 08:59 08/07/16 07:59 50 MG Non-Formulary Medication (Non-Formulary Patient'S Own Med) 1 ea TID PEG 07/30/16 21:00 08/29/16 20:59 08/07/16 20:29 1 EA Sterile Water (Tube Feeding Water Flush) 1 ea TID PEG 07/30/16 21:00 08/29/16 20:59 08/07/16 20:30 1 EA Lifitegrast (Xiidra 5% Oph Soln) 1 drop BID OP 07/30/16 21:00 08/29/16 20:59 08/07/16 08:02 1 DROP Heparin Sodium (Porcine) (Heparin 100 Unit/ml 5ml Flush) 5 ml PRN PRN IV 07/30/16 23:45 08/29/16 23:44 Ipratropium Sarah (Atrovent Hfa Inhaler) 4 puffs QIDR INH 07/31/16 16:00 08/30/16 15:59 08/07/16 19:55 4 PUFFS Albuterol (Ventolin Hfa Inhaler) 4 puffs QIDR INH 07/31/16 16:00 08/30/16 15:59 08/07/16 19:55 4 PUFFS Escitalopram Oxalate 20 mg 20 mg QAM PEG 08/01/16 09:00 08/31/16 08:59 08/07/16 08:00 20 MG Caspofungin/ Sodium Chloride (Cancidas Inj/ Nss 250ml) 260 ml @ 250 mls/hr DAILY@0900 IV 08/02/16 09:00 08/12/16 08:59 08/07/16 09:00 250 MLS/HR Non-Formulary Medication (Non-Formulary Patient'S Own Med) 1 ea HS OP 08/02/16 21:00 09/01/16 20:59 08/06/16 21:17 1 EA Lactobacillus Acidophilus (Floranex Tab) 4 tab TID@0900,1400,2100 PEG 08/02/16 14:00 09/01/16 13:59 08/07/16 13:33 4 TAB Enteral Nutritional Formula (Prosource No Carb) 30 ml TID@0900,1400,2100 PEG 08/02/16 14:00 09/01/16 13:59 Future Hold 08/03/16 07:37 30 ML Sterile Water (Tube Feeding Water Flush) 1 ea TID@0900,1400,2100 PEG 08/02/16 14:00 09/01/16 13:59 08/07/16 13:34 1 EA Insulin Aspart (novoLOG ASPART) tube feeds = 54 g of C... TID@0845,1345,2045 SC 08/02/16 13:45 Future hold 08/06/16 21:04 7 UNITS Loperamide HCl 2 mg 2 mg DAILY PRN PO 08/04/16 09:00 09/03/16 08:59 08/05/16 09:05 2 MG Promethazine HCl/ Sodium Chloride (Phenergan Inj/ Nss 50ml) 50.5 ml @ 204 mls/hr Q6H PRN IV 08/04/16 10:45 09/03/16 10:44 08/06/16 22:39 204 MLS/HR Trimethoprim/ Sulfamethoxazole (Septra Susp) 20 ml Q12 PEG 08/04/16 14:15 08/11/16 14:14 08/07/16 08:00 20 ML Miscellaneous Information (Consult Glycemic Management Pharmacy) 1 ea UD PRN N/A 08/06/16 09:00 09/05/16 08:59 Polyethylene (Miralax Powder Packet) 17 gm BID PEG 08/06/16 09:00 09/05/16 08:59 08/07/16 08:01 17 GM Baclofen (Lioresal Tab) 10 mg Q3H PRN PO 08/07/16 09:00 09/06/16 08:59 08/07/16 13:56 10 MG Loperamide HCl (Imodium A-D Liquid) 2 mg QD@08 PRN PO 08/07/16 11:00 09/06/16 10:59 08/07/16 13:33 2 MG Insulin Glargine (Lantus Solostar Pen) 13 unit HS SC 08/07/16 21:00 09/06/16 20:59 I & O: 24-Hour Column 08/07/16 08:00 Intake Total 2436 ml Output Total 2470 ml Balance -34 ml Vital Signs: Date Time Temp Pulse Resp B/P Pulse Ox O2 Delivery O2 Flow Rate FiO2 08/07/16 20:01 36.8 72 22 149/88 96 Mechanical Ventilator 28 08/07/16 17:47 79 20 154/61 94 Mechanical Ventilator 28 08/07/16 15:45 Mechanical Ventilator 28 08/07/16 15:45 28 08/07/16 15:45 37.0 81 20 136/61 93 Mechanical Ventilator 28 08/07/16 14:00 36.7 74 20 148/75 94 Mechanical Ventilator 28 08/07/16 11:53 28 08/07/16 11:23 36.7 78 20 154/61 94 Mechanical Ventilator 28 08/07/16 11:20 Mechanical Ventilator 28 08/07/16 11:20 28 08/07/16 09:30 37.2 78 20 151/66 92 Mechanical Ventilator 28 08/07/16 07:34 28 08/07/16 07:30 28 08/07/16 07:30 37.2 70 20 131/82 97 Mechanical Ventilator 28 08/07/16 07:30 Mechanical Ventilator 2.0 28 08/07/16 06:00 70 16 132/74 96 Mechanical Ventilator 28 08/07/16 05:45 28 08/07/16 04:01 67 14 137/69 96 Mechanical Ventilator 28 08/07/16 04:00 28 08/07/16 04:00 Mechanical Ventilator 28 08/07/16 03:01 67 14 145/56 95 Mechanical Ventilator 28 08/07/16 02:15 28 08/07/16 02:00 72 14 134/64 97 Mechanical Ventilator 28 08/07/16 00:01 36.8 74 16 130/75 92 Mechanical Ventilator 28 08/06/16 23:59 Mechanical Ventilator 28 08/06/16 23:59 28 08/06/16 22:50 28 08/06/16 22:00 80 16 165/68 92 Mechanical Ventilator 28 Laboratory Results: Last 24 Hours Test 08/06/16 20:51 08/07/16 02:04 08/07/16 05:45 08/07/16 08:09 Bedside Glucose 185 mg/dl 88 mg/dl 122 mg/dl White Blood Count 7.31 K/uL Red Blood Count 3.46 M/uL Hemoglobin 10.1 g/dL Hematocrit 33.4 % Mean Corpuscular Volume 96.5 fL Mean Corpuscular Hemoglobin 29.2 pg Mean Corpuscular Hemoglobin Concent 30.2 g/dl RDW Standard Deviation 68.9 fL RDW Coefficient of Variation 19.2 % Platelet Count 220 K/uL Mean Platelet Volume 9.2 fL Sodium Level 138 mmol/L Potassium Level 5.0 mmol/L Chloride Level 103 mmol/L Carbon Dioxide Level 33 mmol/L Anion Gap 2.0 mmol/L Blood Urea Nitrogen 24 mg/dl Creatinine 0.54 mg/dl Est Creatinine Clear Calc Drug Dose 85.7 ml/min Estimated GFR () 111.6 Estimated GFR (Non- 96.3 BUN/Creatinine Ratio 45.3 Random Glucose 66 mg/dl Calcium Level 8.6 mg/dl Phosphorus Level 3.9 mg/dl Magnesium Level 2.2 mg/dl Test 08/07/16 13:24 08/07/16 20:07 Bedside Glucose 118 mg/dl 126 mg/dl
[2016-08-07] MEDS ORDERED: INSULIN GLARGINE SOLOSTAR 100 UNITS/ML 3 ML PEN SC SCH (21:00)
[2016-08-07] MEDS: FLUCONAZOLE SUSP 100 MG/10 ML UDP PEG SCH (21:52)
[2016-08-07] MEDS: LIDODERM (LIDOCAINE) PATCH 5% TD SCH (21:54)
[2016-08-07] MEDS: [UNRECOGNIZED DRUG - OTHER] OP SCH (22:01)
[2016-08-07] MEDS: ACETAMINOPHEN SOLN 650MG/20.3 ML UDC PEG PRN (22:12)
[2016-08-08] VITALS (23 sets, daily range): BP systolic 132–163; BP diastolic 56–85; PULSE 63–79; TEMP 36.8–37.2; O2SAT 93–100
[2016-08-08] MEDS: ACETAMINOPHEN SOLN 650MG/20.3 ML UDC PEG PRN ×3 (02:19→20:35)
[2016-08-08] MEDS: LOPERAMIDE LIQUID 1MG/7.5ML 120ML BTL PO PRN (05:53)
[2016-08-08] MEDS: HEPARIN SOD 5000 UNIT/0.5 ML CARP SQ SCH ×3 (05:53→22:27)
[2016-08-08 06:51] LABS: MEAN CELL VOLUME 94.8 fL (80-100); MEAN CORPUSCULAR HEMOGLOBIN 28.4 pg (25-34); MEAN PLATELET VOLUME 9.4 fL (7.4-10.4); PLATELET COUNT 222 K/uL (130-400); RED BLOOD COUNT 3.48 M/uL (4.2-5.4); WHITE BLOOD COUNT 6.74 K/uL (4.8-10.8)
[2016-08-08 06:58] LABS: VEN BLD GAS O2 SATURATION 74.6 %; VEN BLOOD GAS BASE EXCESS 4.8 mmol/L
[2016-08-08 07:26] LABS: BUN/CREATININE RATIO 30.3 (10-20); CALCIUM 8.8 mg/dl (8.5-10.1); CREATININE 0.59 mg/dl (0.60-1.20); PHOSPHORUS 3.5 mg/dl (2.5-4.9); POTASSIUM 4.5 mmol/L (3.5-5.1)
[2016-08-08] MEDS: ALBUTEROL HFA 8 GM INHALER INH SCH ×4 (07:41→20:00)
[2016-08-08] MEDS: IPRATROPIUM BROMIDE HFA INHALER INH SCH ×4 (07:41→20:00)
[2016-08-08] MEDS: POLYETHYLENE (MIRALAX) 17 GM PACK PEG SCH (07:49)
[2016-08-08 07:56] LABS: BASO % 0.3 %; BASO ABS # 0.02 K/uL (0-0.2); COMPLETE YES; EOS % 2.2 %; IG% 0.7 %; LYMPH % 50.7 %; LYMPH ABS # 3.42 K/uL (1.2-3.4); MONO % 7.6 %; NEUT % 38.5 %
[2016-08-08] MEDS: SULFA/TRIMETH SUSP 800/160MG 20ML UDC PEG SCH (08:02)
[2016-08-08] MEDS: ERTAPENEM IV 1 GM in SODIUM CHLOR 0.9% AD-VAN 50ML IV SCH (08:02)
[2016-08-08] MEDS: ALLOPURINOL 100 MG TAB PEG SCH (08:03)
[2016-08-08] MEDS: BusPIRone 15 MG TAB PEG SCH ×2 (08:03→21:00)
[2016-08-08] MEDS: ESCITALOPRAM OXALATE ORAL SOLN 5 MG/5 ML PEG SCH (08:03)
[2016-08-08] MEDS: GABAPENTIN 250 MG/5 ML 470 ML BTL PEG SCH ×3 (08:03→22:21)
[2016-08-08] MEDS: CLOPIDOGREL BISULFATE 75 MG TAB PEG SCH (08:04)
[2016-08-08] MEDS: ENTERAL NUTRITION FORMULA PEG SCH ×3 (08:05→22:25)
[2016-08-08] MEDS: TUBE FEEDING WATER FLUSH PEG SCH ×6 (08:05→22:25)
[2016-08-08] MEDS: AMLODIPINE BESYLATE 5 MG TAB PEG SCH (08:05)
[2016-08-08] MEDS: PENTOSAN POLYSULFATE SODIUM 100 MG CAP PEG SCH (08:05)
[2016-08-08] MEDS: LACTOBACILLUS ACIDOPHILUS (FLORANEX) TAB PEG SCH ×3 (08:05→21:00)
[2016-08-08] MEDS: DIPYRIDAMOLE/ASPIRIN CAP PO SCH ×2 (08:05→23:51)
[2016-08-08] MEDS: PROPYLENE GLYCOL 0.6% (OPHTH) 15 DROP/ML 10ML BTL OPB SCH (08:06)
[2016-08-08] MEDS: LIFITEGRAST 5% OP SCH ×2 (08:06→22:25)
[2016-08-08] MEDS: [UNRECOGNIZED DRUG - SUPPLY] OP SCH ×2 (08:06→22:23)
[2016-08-08] MEDS: BACLOFEN 10 MG TAB PO PRN ×3 (08:09→18:43)
[2016-08-08] MEDS: INSULIN ASPART 100 UNITS/ML 3 ML PEN SC SCH ×3 (08:26→20:31)
[2016-08-08] MEDS: CASPOFUNGIN INJ 50 MG in SODIUM CHLORIDE 0.9% 250ML 250 ML IV SCH (09:06)
[2016-08-08 09:57] LABS: ISTAT ALLEN TEST Pass; ISTAT ARTERIAL BLOOD GAS HCO3 25 meq/L (19-24); ISTAT ARTERIAL BLOOD GAS PCO2 39 mmHg (35-46); ISTAT ARTERIAL BLOOD GAS PO2 66 mmHg (80-95); ISTAT ARTERIAL BLOOD GAS pH 7.41 (7.35-7.45); ISTAT CARBON DIOXIDE 26 mEq/l (24-31); ISTAT DELIVERY SYSTEM Ventilator; ISTAT FIO2 0 %; ISTAT PEEP 4; ISTAT RATE 14; ISTAT SITE R Radial; VE 7.9; Vt 500
--- NOTE | 2016-08-08 11:29 | Pulmonology Progress Note ---
Pulmonary Progress Note Date of Service Aug 08, 2016. Attending Dr. Luther Subjective Patient felt strong today but disappointed in hearing about new growth from BAL Objective Patient notable anxious from growth of Acinetobacter Lwoffi but other colon no signs of respiratory distress VS: Stable on vent support ABG (08/08/2016) 7.41/39/66 Trilogy:14/RA/TV:500cc RESP: rhonchi in the LLL posterior subsegment CARD: S1S2 distant HS but RRR ABD: dissented but no rebound noted BAL (08/02/16) Acinetobacter Lwoffi CXR (08/05/2016) compared to 08/02/2016 Increased aeration but continued LLL opacification Medications: 1. Trimethoprine/Sulfamethoxazole: 20ml BID 2. Caspofungin 260mL QD 3. Atrovent Neb 4. Albulerol HFa 5. Ertapenum 1gm QD 6. Diflucan 100mg QD Assessment & Plan 71y/o chronically vent depend female admitted with acute on chronic respiratory failure: 1) ID: New growth from BAL 08/02/16 Acinetobacter Lwoffi, sensitive to Bactrim. Patient also with complex UTI hx and previous Stenotrophomonas pna. currently followed by ID 2) Ventilator: Currently on Trilogy device but elevated peak airway pressures. As we can't obtain plateau pressures on a Trilogy we will change her back to the hospital vent for 30 mins and preform them as well as obtain a CXR. 3) Oxygenation/Ventilation: ABG stable on Trilogy on RA. PaO2 @ 66 at this time. This is acceptable but will re-evaluate after elevated peak airways evaluated. Data Medications: Current Inpatient Medications Medications (Trade) Dose Ordered Sig/Tasha Route Start Time Stop Time Status Last Admin Dose Admin Dipyridamole/ Aspirin (Aggrenox 200MG/ 25MG Cap) 1 cap BID PO 07/30/16 09:00 08/29/16 08:59 08/08/16 08:05 1 CAP Bisacodyl (Dulcolax Supp) 10 mg SuMoWeFr@2100 MD 07/30/16 21:00 08/29/16 20:59 Future Hold 07/30/16 21:37 10 MG Phenazopyridine HCl (Pyridium Tab) 200 mg BID PRN PO 07/30/16 02:15 08/29/16 02:14 07/30/16 10:40 200 MG Heparin Sodium (Porcine) (Heparin Sq 5000 Unit/0.5ml) 5,000 unit Q8 SQ 07/30/16 06:00 08/29/16 05:59 08/08/16 05:53 5,000 UNIT Ondansetron HCl (Zofran Inj) 4 mg Q6H PRN IV 07/30/16 02:15 08/29/16 02:14 08/07/16 22:43 4 MG Miscellaneous (Iv Fluids Completed) 1 ea PRN PRN N/A 07/30/16 03:15 07/30/17 03:14 Glucose (Glucose 40% Gel) 15-30 GRAMS 15 GRAMS... UD PRN PO 07/30/16 03:30 08/29/16 03:29 Glucose (Glucose Chew Tab) 4-8 Tablets 4 Tabl... UD PRN PO 07/30/16 03:30 08/29/16 03:29 Dextrose (Dextrose 50% 50ML Syringe) 25-50ML OF 50% DW IV FOR... UD PRN IV 07/30/16 03:30 08/29/16 03:29 Glucagon 1 mg 1 mg UD PRN SQ 07/30/16 03:30 08/29/16 03:29 Ertapenem/Sodium Chloride (Invanz Iv/Nss Ad-Van 50ml) 50 ml @ 100 mls/hr Q24H IV 07/31/16 08:00 08/10/16 07:59 08/08/16 08:02 100 MLS/HR Bisacodyl (Dulcolax Supp) 10 mg TuTh@0530 MD 07/31/16 05:30 08/30/16 05:29 Future Hold 07/31/16 05:59 10 MG Lidocaine (Lidoderm Patch 5%) 2 patch DAILY@2100 TD 07/30/16 21:00 08/29/16 20:59 08/07/16 21:54 2 PATCH Miscellaneous (Remove Lidoderm Patch) 1 ea DAILY@0900 N/A 07/31/16 09:00 08/30/16 08:59 08/08/16 08:06 1 EA Acetaminophen (Tylenol Soln) 650 mg Q4H PRN PEG 07/30/16 18:15 08/29/16 18:14 08/08/16 10:19 650 MG Allopurinol (Zyloprim Tab) 100 mg DAILY PEG 07/31/16 09:00 08/30/16 08:59 08/08/16 08:03 100 MG Al Hydrox/Mg Hydrox/Simethicone (Maalox Max Susp) 15 ml Q4H PRN PEG 07/30/16 18:15 08/29/16 18:14 08/03/16 16:17 15 ML Amlodipine Besylate (Norvasc Tab) 3.75 mg DAILY PEG 07/31/16 09:00 08/30/16 08:59 08/08/16 08:05 3.75 MG Buspirone HCl (BusPAR TAB) 7.5 mg BID PEG 07/30/16 21:00 08/29/16 20:59 08/08/16 08:03 7.5 MG Clopidogrel Bisulfate (plAVix TAB) 75 mg DAILY PEG 07/31/16 09:00 08/30/16 08:59 08/08/16 08:04 75 MG Fluconazole (Diflucan Susp) 100 mg QPM PEG 07/30/16 21:00 08/09/16 20:59 08/07/16 21:52 100 MG Gabapentin (Neurontin) 100 mg QAM PEG 07/31/16 09:00 08/30/16 08:59 08/08/16 08:03 100 MG Gabapentin (Neurontin) 200 mg 1600 PEG 07/30/16 16:00 08/29/16 15:59 08/07/16 15:55 200 MG Pentosan Polysulfate Sodium (Elmiron) 100 mg BID PEG 07/30/16 21:00 08/29/16 20:59 08/08/16 08:05 100 MG Gabapentin (Neurontin) 600 mg HS PEG 07/30/16 21:00 08/29/16 20:59 08/07/16 21:53 600 MG Lorazepam (Ativan Tab) 0.5 mg DAILY PRN PEG 07/30/16 16:45 08/29/16 16:44 Magnesium Hydroxide (Milk Of Magnesia Susp) 30 ml Q12H PRN PEG 07/30/16 16:45 08/29/16 16:44 Future Hold Lamotrigine (Lamictal Tab) 50 mg BID PEG 08/07/16 09:00 09/06/16 08:59 08/08/16 08:03 50 MG Non-Formulary Medication (Non-Formulary Patient'S Own Med) 1 ea TID PEG 07/30/16 21:00 08/29/16 20:59 08/08/16 08:05 1 EA Sterile Water (Tube Feeding Water Flush) 1 ea TID PEG 07/30/16 21:00 08/29/16 20:59 08/08/16 08:05 1 EA Lifitegrast (Xiidra 5% Oph Soln) 1 drop BID OP 07/30/16 21:00 08/29/16 20:59 08/08/16 08:06 1 DROP Heparin Sodium (Porcine) (Heparin 100 Unit/ml 5ml Flush) 5 ml PRN PRN IV 07/30/16 23:45 08/29/16 23:44 Ipratropium [place] (Atrovent Hfa Inhaler) 4 puffs QIDR INH 07/31/16 16:00 08/30/16 15:59 08/08/16 07:41 4 PUFFS Albuterol (Ventolin Hfa Inhaler) 4 puffs QIDR INH 07/31/16 16:00 08/30/16 15:59 08/08/16 07:41 4 PUFFS Escitalopram Oxalate 20 mg 20 mg QAM PEG 08/01/16 09:00 08/31/16 08:59 08/08/16 08:03 20 MG Caspofungin/ Sodium Chloride (Cancidas Inj/ Nss 250ml) 260 ml @ 250 mls/hr DAILY@0900 IV 08/02/16 09:00 08/12/16 08:59 08/08/16 09:06 250 MLS/HR Non-Formulary Medication (Non-Formulary Patient'S Own Med) 1 ea HS OP 08/02/16 21:00 09/01/16 20:59 08/07/16 22:01 1 EA Lactobacillus Acidophilus (Floranex Tab) 4 tab TID@0900,1400,2100 PEG 08/02/16 14:00 09/01/16 13:59 08/08/16 08:05 4 TAB Enteral Nutritional Formula (Prosource No Carb) 30 ml TID@0900,1400,2100 PEG 08/02/16 14:00 09/01/16 13:59 Future Hold 08/03/16 07:37 30 ML Sterile Water (Tube Feeding Water Flush) 1 ea TID@0900,1400,2100 PEG 08/02/16 14:00 09/01/16 13:59 08/08/16 08:05 1 EA Insulin Aspart (novoLOG ASPART) tube feeds = 54 g of C... TID@0845,1345,2045 SC 08/02/16 13:45 Future hold 08/06/16 21:04 7 UNITS Loperamide HCl 2 mg 2 mg DAILY PRN PO 08/04/16 09:00 09/03/16 08:59 08/05/16 09:05 2 MG Promethazine HCl/ Sodium Chloride (Phenergan Inj/ Nss 50ml) 50.5 ml @ 204 mls/hr Q6H PRN IV 08/04/16 10:45 09/03/16 10:44 08/06/16 22:39 204 MLS/HR Trimethoprim/ Sulfamethoxazole (Septra Susp) 20 ml Q12 PEG 08/04/16 14:15 08/11/16 14:14 08/08/16 08:02 20 ML Miscellaneous Information (Consult Glycemic Management Pharmacy) 1 ea UD PRN N/A 08/06/16 09:00 09/05/16 08:59 Polyethylene (Miralax Powder Packet) 17 gm BID PEG 08/06/16 09:00 09/05/16 08:59 Future Hold 08/07/16 21:53 17 GM Baclofen (Lioresal Tab) 10 mg Q3H PRN PO 08/07/16 09:00 09/06/16 08:59 08/08/16 08:09 10 MG Loperamide HCl (Imodium A-D Liquid) 2 mg QD@08 PRN PO 08/07/16 11:00 09/06/16 10:59 08/08/16 05:53 2 MG Insulin Glargine (Lantus Solostar Pen) 13 unit HS SC 08/07/16 21:00 09/06/16 20:59 08/07/16 21:57 13 UNIT I & O: 24-Hour Column 08/08/16 08:00 Intake Total 1622 ml Output Total 2550 ml Balance -928 ml Vital Signs: Date Time Temp Pulse Resp B/P Pulse Ox O2 Delivery O2 Flow Rate FiO2 08/08/16 09:30 37.1 70 22 132/64 98 Mechanical Ventilator 28 08/08/16 07:30 Mechanical Ventilator 2.0 28 08/08/16 07:30 37.1 65 19 137/58 98 Mechanical Ventilator 28 08/08/16 07:30 28 08/08/16 06:00 64 14 152/61 95 Mechanical Ventilator 28 08/08/16 04:01 36.8 65 14 144/58 100 Mechanical Ventilator 28 08/08/16 04:00 Mechanical Ventilator 2.0 28 08/08/16 04:00 28 08/08/16 02:01 70 16 154/56 96 Mechanical Ventilator 28 08/08/16 00:01 36.8 74 17 139/66 95 Mechanical Ventilator 28 08/08/16 00:00 28 08/08/16 00:00 Mechanical Ventilator 2.0 28 08/07/16 22:00 76 20 156/82 94 Mechanical Ventilator 28 08/07/16 20:01 36.8 72 22 149/88 96 Mechanical Ventilator 28 08/07/16 20:00 Mechanical Ventilator 2.0 28 08/07/16 20:00 28 08/07/16 17:47 79 20 154/61 94 Mechanical Ventilator 28 08/07/16 15:45 Mechanical Ventilator 28 08/07/16 15:45 28 08/07/16 15:45 37.0 81 20 136/61 93 Mechanical Ventilator 28 08/07/16 14:00 36.7 74 20 148/75 94 Mechanical Ventilator 28 08/07/16 11:53 28 08/07/16 11:23 36.7 78 20 154/61 94 Mechanical Ventilator 28 08/07/16 11:20 Mechanical Ventilator 28 08/07/16 11:20 28 Laboratory Results: Last 24 Hours Test 08/07/16 13:24 08/07/16 20:07 08/08/16 06:41 08/08/16 09:44 Bedside Glucose 118 mg/dl 126 mg/dl 83 mg/dl White Blood Count 6.74 K/uL Red Blood Count 3.48 M/uL Hemoglobin 9.9 g/dL Hematocrit 33.0 % Mean Corpuscular Volume 94.8 fL Mean Corpuscular Hemoglobin 28.4 pg Mean Corpuscular Hemoglobin Concent 30.0 g/dl Platelet Count 222 K/uL Mean Platelet Volume 9.4 fL Neutrophils (%) (Auto) 38.5 % Lymphocytes (%) (Auto) 50.7 % Monocytes (%) (Auto) 7.6 % Eosinophils (%) (Auto) 2.2 % Basophils (%) (Auto) 0.3 % Neutrophils # (Auto) 2.59 K/uL Lymphocytes # (Auto) 3.42 K/uL Monocytes # (Auto) 0.51 K/uL Eosinophils # (Auto) 0.15 K/uL Basophils # (Auto) 0.02 K/uL RDW Standard Deviation 66.3 fL RDW Coefficient of Variation 19.1 % Immature Granulocyte % (Auto) 0.7 % Immature Granulocyte # (Auto) 0.05 K/uL Venous Blood pH 7.43 Venous Blood Partial Pressure CO2 46 mmHg Venous Blood Partial Pressure O2 42 mmHg Venous Blood HCO3 30 mmol/L Venous Blood Oxygen Saturation 74.6 % Venous Blood Base Excess 4.8 mmol/L Sodium Level 137 mmol/L Potassium Level 4.5 mmol/L Chloride Level 102 mmol/L Carbon Dioxide Level 30 mmol/L Anion Gap 5.0 mmol/L Blood Urea Nitrogen 18 mg/dl Creatinine 0.59 mg/dl Est Creatinine Clear Calc Drug Dose 74.8 ml/min Estimated GFR () 108.4 Estimated GFR (Non- 93.5 BUN/Creatinine Ratio 30.3 Fasting Glucose 85 mg/dl Calcium Level 8.8 mg/dl Phosphorus Level 3.5 mg/dl Magnesium Level 2.0 mg/dl Blood Gas Sample Site R Radial Bedside Blood Gas pH (LAB) 7.41 Bedside Blood Gas pCO2 (LAB) 39 mmHg Bedside Blood Gas pO2 (LAB) 66 mmHg Bedside Blood Gas HCO3 (LAB) 25 meq/L Bedside Blood Gas Total CO2 26 mEq/l Bedside Blood Gas Base Excess (LAB) 0.0 meq/L Bedside Blood Gas O2 Saturation 93.0 % Yogesh Test Pass Oxygen Delivery Device Ventilator Bedside Oxygen Rate (breaths/min) 14 Blood Gas Minute Ventilation 7.9 Bedside FiO2 0 % Blood Gas Tidal Volume 500 Blood Gas PEEP 4
--- NOTE | 2016-08-08 12:49 | DIAGNOSTIC IMAGING REPORT ---
CHEST ONE VIEW PORTABLE CLINICAL HISTORY: lobar atelectasis COMPARISON STUDY: 08/05/2016 FINDINGS: A left subclavian central venous catheter, right subclavian A-Port catheter, tracheostomy tube remain in similar position. The heart is the upper limits of normal in size. There is resolving pulmonary vascular congestion. There are improving bibasilar airspace opacities.[ There is no significant pleural fluid. IMPRESSION: 1. Resolving pulmonary vascular congestion 2. Improving bibasilar airspace opacities Electronically signed by: Viktor Whitfield M.D. 08/08/2016 12:46 PM Dictated Date/Time: 08/08/2016 12:45 PM
--- NOTE | 2016-08-08 13:19 | Pharmacy Progress Note ---
Glycemic Control: Progress Nt Date of Service Aug 08, 2016. Scope Glycemic Pharmacist consulted by Dr Coleman on 08/06/16 for glycemic control and to write orders per [facility] inpatient glycemic control protocol. Objective Accuchecks BSG (last 24hrs): Test 08/07/16 13:24 08/07/16 20:07 08/08/16 06:41 Bedside Glucose 118 mg/dl (70-90) 126 mg/dl (70-90) 83 mg/dl (70-90) Laboratory Data (last 24hrs) Test 08/08/16 06:41 Anion Gap 5.0 mmol/L BUN/Creatinine Ratio 30.3 Blood Urea Nitrogen 18 mg/dl Creatinine 0.59 mg/dl Potassium Level 4.5 mmol/L Sodium Level 137 mmol/L White Blood Count 6.74 K/uL Red Blood Count 3.48 M/uL Hemoglobin 9.9 g/dL Hematocrit 33.0 % Mean Corpuscular Volume 94.8 fL Mean Corpuscular Hemoglobin 28.4 pg Mean Corpuscular Hemoglobin Concent 30.0 g/dl Platelet Count 222 K/uL Mean Platelet Volume 9.4 fL Neutrophils (%) (Auto) 38.5 % Lymphocytes (%) (Auto) 50.7 % Monocytes (%) (Auto) 7.6 % Eosinophils (%) (Auto) 2.2 % Basophils (%) (Auto) 0.3 % Neutrophils # (Auto) 2.59 K/uL Lymphocytes # (Auto) 3.42 K/uL Monocytes # (Auto) 0.51 K/uL Eosinophils # (Auto) 0.15 K/uL Basophils # (Auto) 0.02 K/uL HbA1c: 6% 05/29/16 Recent Pertinent Medications Outpatient Anti-diabetic Regimen: * Lantus 13 units Q HS * A1c = 6.0 % 05/29/16 The patient is currently receiving: * Basal insulin: Lantus 13 units every 24 hours - dosed at bedtime * Correctional Insulin: Novolog Correction per scale TID w/ Nutren boluses Goal Range: Low 120 mg/dL - High 160 mg/dL Correction Factor: 25 mg/dL/unit * Prandial insulin: Per carb ratio of 1 unit per 8 grams CHO consumed * Oral Agents: None Risk Factors for Insulin Resistance: * Steroids: n/a * Infection: caspofungin + fluconazole + Invanz + Bactrim susp * Pressors: n/a * IVF: n/a * Recent Surgery: n/a * Diet: Nutren 2.0 267mL bolus feed TID (54gm CHO per feeding) * Mechanical Ventilation: yes Assessment & Plan ASSESSMENT: 08/06/16 * 71 yo diabetic F well known to glycemic service, admitted 07/30/16 for seizures , currently remains in ICU on broad spectrum antibiotic coverage * Since most recent discharge from the hospital, she is on new tube feeds and new insulin regimen as outpatient * Per dietary, Nutren bolus feeds provide 54 g CHO per bolus * Once tube feeds were restarted on 07/31/16, glycemic control was poor with multiple days of BSGs >200 mg/dL * Over the weekend, BSGs began to trend down, and fasting BSG X 2 days has been <100 mg/dL * Decrease Lantus by 20% * Continue Novolog with bolus feeds + 0200 check * Pt complaining of nausea today and I see patient did not receive lunch time bolus - if this continues, we may need to loosen coverage further * ADA & AACE recommend a goal blood sugar range 140-180 mg/dl for the majority of critically ill & non-critically ill patients. However, more stringent targets may be selected in individual cases. Patient currently controlled with goal range 120-160 mg/dl. This had been tightened last week due to sustained severe hyperglycemia. 08/07/16 * Fasting BSG 66-122 this AM; this is following a Lantus dose reduction yesterday to 18 units Q HS - will reduce dose even further * Patient's insulin sensitivity appears to be improving; she has not received Novolog boluses with the Nutren today yet BSGs are not climbing - will reduce CF and CR doses as well 08/08/16 * No episodes of hypoglycemia in last 24 hours, but fasting AM BSG did drop to 83-85 this AM. Will only decrease the Lantus dose by 1 unit further as we have been scaling the dose back x 2 days in a row now * She had refused some of her bolus feeds two days back - this is no longer being reported. * Patient has been receiving the bolus feeds without carb coverage and BSGs are well controlled - will removed the carb ratio at this time and follow PLAN FOR INPATIENT GLYCEMIC CONTROL: * Decreasing Lantus to 12 units SQ Q HS - hold if BSG less than 110 * Changing correction factor to 25 mg/dl/unit * Remove the carb ratio at this time * Continuing goal range of Low 120 mg/dL - High 160 mg/dL * Please note that the plan above was derived based on current level of insulin resistance and hospital stress. These recommendations are appropriate for inpatient admission only. Plan of care upon discharge will need to be reassessed to avoid potential outpatient hypo/hyperglycemia. Thank you.
--- NOTE | 2016-08-08 14:24 | Infectious Disease Progress Nt ---
Progress Note Date of Service Aug 08, 2016. Subjective Pt evaluation today including: conversation w/ patient, conversation w/ family (caregiver), physical exam, chart review, lab review, review of studies, conversation w/ clinical operations consultant (Case management), review of inpatient medication list Patient's bronchoscopy washing culture growing Acinetobacter Lwoffii, and repeat MRSA nasal swab was negative. The patient states that she is feeling slightly better. She is doing well on her new ventilator. She is anticipating discharge possibly tomorrow. I did discuss this patient with Dr. Leija once again today. The patient's white blood cell count this morning was 6.74. Her creatinine was stable at 0.59. Repeat chest x-ray showed resolving pulmonary vascular congestion and improving bibasilar airspace opacities. All Other Systems: Reviewed and Negative Medications Current Inpatient Medications Medications (Trade) Dose Ordered Sig/Tasha Route Start Time Stop Time Status Last Admin Dose Admin Dipyridamole/ Aspirin (Aggrenox 200MG/ 25MG Cap) 1 cap BID PO 07/30/16 09:00 08/29/16 08:59 08/08/16 08:05 1 CAP Bisacodyl (Dulcolax Supp) 10 mg SuMoWeFr@2100 NH 07/30/16 21:00 08/29/16 20:59 Future Hold 07/30/16 21:37 10 MG Phenazopyridine HCl (Pyridium Tab) 200 mg BID PRN PO 07/30/16 02:15 08/29/16 02:14 07/30/16 10:40 200 MG Heparin Sodium (Porcine) (Heparin Sq 5000 Unit/0.5ml) 5,000 unit Q8 SQ 07/30/16 06:00 08/29/16 05:59 08/08/16 14:06 5,000 UNIT Ondansetron HCl (Zofran Inj) 4 mg Q6H PRN IV 07/30/16 02:15 08/29/16 02:14 08/07/16 22:43 4 MG Miscellaneous (Iv Fluids Completed) 1 ea PRN PRN N/A 07/30/16 03:15 07/30/17 03:14 Glucose (Glucose 40% Gel) 15-30 GRAMS 15 GRAMS... UD PRN PO 07/30/16 03:30 08/29/16 03:29 Glucose (Glucose Chew Tab) 4-8 Tablets 4 Tabl... UD PRN PO 07/30/16 03:30 08/29/16 03:29 Dextrose (Dextrose 50% 50ML Syringe) 25-50ML OF 50% DW IV FOR... UD PRN IV 07/30/16 03:30 08/29/16 03:29 Glucagon 1 mg 1 mg UD PRN SQ 07/30/16 03:30 08/29/16 03:29 Ertapenem/Sodium Chloride (Invanz Iv/Nss Ad-Van 50ml) 50 ml @ 100 mls/hr Q24H IV 07/31/16 08:00 08/10/16 07:59 08/08/16 08:02 100 MLS/HR Bisacodyl (Dulcolax Supp) 10 mg TuTh@0530 NH 07/31/16 05:30 08/30/16 05:29 Future Hold 07/31/16 05:59 10 MG Lidocaine (Lidoderm Patch 5%) 2 patch DAILY@2100 TD 07/30/16 21:00 08/29/16 20:59 08/07/16 21:54 2 PATCH Miscellaneous (Remove Lidoderm Patch) 1 ea DAILY@0900 N/A 07/31/16 09:00 08/30/16 08:59 08/08/16 08:06 1 EA Acetaminophen (Tylenol Soln) 650 mg Q4H PRN PEG 07/30/16 18:15 08/29/16 18:14 08/08/16 10:19 650 MG Allopurinol (Zyloprim Tab) 100 mg DAILY PEG 07/31/16 09:00 08/30/16 08:59 08/08/16 08:03 100 MG Al Hydrox/Mg Hydrox/Simethicone (Maalox Max Susp) 15 ml Q4H PRN PEG 07/30/16 18:15 08/29/16 18:14 08/03/16 16:17 15 ML Amlodipine Besylate (Norvasc Tab) 3.75 mg DAILY PEG 07/31/16 09:00 08/30/16 08:59 08/08/16 08:05 3.75 MG Buspirone HCl (BusPAR TAB) 7.5 mg BID PEG 07/30/16 21:00 08/29/16 20:59 08/08/16 08:03 7.5 MG Clopidogrel Bisulfate (plAVix TAB) 75 mg DAILY PEG 07/31/16 09:00 08/30/16 08:59 08/08/16 08:04 75 MG Fluconazole (Diflucan Susp) 100 mg QPM PEG 07/30/16 21:00 08/09/16 20:59 08/07/16 21:52 100 MG Gabapentin (Neurontin) 100 mg QAM PEG 07/31/16 09:00 08/30/16 08:59 08/08/16 08:03 100 MG Gabapentin (Neurontin) 200 mg 1600 PEG 07/30/16 16:00 08/29/16 15:59 08/07/16 15:55 200 MG Pentosan Polysulfate Sodium (Elmiron) 100 mg BID PEG 07/30/16 21:00 08/29/16 20:59 08/08/16 08:05 100 MG Gabapentin (Neurontin) 600 mg HS PEG 07/30/16 21:00 08/29/16 20:59 08/07/16 21:53 600 MG Lorazepam (Ativan Tab) 0.5 mg DAILY PRN PEG 07/30/16 16:45 08/29/16 16:44 Magnesium Hydroxide (Milk Of Magnesia Susp) 30 ml Q12H PRN PEG 07/30/16 16:45 08/29/16 16:44 Future Hold Lamotrigine (Lamictal Tab) 50 mg BID PEG 08/07/16 09:00 09/06/16 08:59 08/08/16 08:03 50 MG Non-Formulary Medication (Non-Formulary Patient'S Own Med) 1 ea TID PEG 07/30/16 21:00 08/29/16 20:59 08/08/16 14:04 1 EA Sterile Water (Tube Feeding Water Flush) 1 ea TID PEG 07/30/16 21:00 08/29/16 20:59 08/08/16 14:04 1 EA Lifitegrast (Xiidra 5% Oph Soln) 1 drop BID OP 07/30/16 21:00 08/29/16 20:59 08/08/16 08:06 1 DROP Heparin Sodium (Porcine) (Heparin 100 Unit/ml 5ml Flush) 5 ml PRN PRN IV 07/30/16 23:45 08/29/16 23:44 Ipratropium [place] (Atrovent Hfa Inhaler) 4 puffs QIDR INH 07/31/16 16:00 08/30/16 15:59 08/08/16 12:13 4 PUFFS Albuterol (Ventolin Hfa Inhaler) 4 puffs QIDR INH 07/31/16 16:00 08/30/16 15:59 08/08/16 12:13 4 PUFFS Escitalopram Oxalate 20 mg 20 mg QAM PEG 08/01/16 09:00 08/31/16 08:59 08/08/16 08:03 20 MG Caspofungin/ Sodium Chloride (Cancidas Inj/ Nss 250ml) 260 ml @ 250 mls/hr DAILY@0900 IV 08/02/16 09:00 08/12/16 08:59 08/08/16 09:06 250 MLS/HR Non-Formulary Medication (Non-Formulary Patient'S Own Med) 1 ea HS OP 08/02/16 21:00 09/01/16 20:59 08/07/16 22:01 1 EA Lactobacillus Acidophilus (Floranex Tab) 4 tab TID@0900,1400,2100 PEG 08/02/16 14:00 09/01/16 13:59 08/08/16 14:05 4 TAB Enteral Nutritional Formula (Prosource No Carb) 30 ml TID@0900,1400,2100 PEG 08/02/16 14:00 09/01/16 13:59 Future Hold 08/03/16 07:37 30 ML Sterile Water (Tube Feeding Water Flush) 1 ea TID@0900,1400,2100 PEG 08/02/16 14:00 09/01/16 13:59 08/08/16 14:04 1 EA Insulin Aspart (novoLOG ASPART) tube feeds = 54 g of C... TID@0845,1345,2045 SC 08/02/16 13:45 Future hold 08/06/16 21:04 7 UNITS Loperamide HCl 2 mg 2 mg DAILY PRN PO 08/04/16 09:00 09/03/16 08:59 08/05/16 09:05 2 MG Promethazine HCl/ Sodium Chloride (Phenergan Inj/ Nss 50ml) 50.5 ml @ 204 mls/hr Q6H PRN IV 08/04/16 10:45 09/03/16 10:44 08/06/16 22:39 204 MLS/HR Trimethoprim/ Sulfamethoxazole (Septra Susp) 20 ml Q12 PEG 08/04/16 14:15 08/11/16 14:14 08/08/16 08:02 20 ML Miscellaneous Information (Consult Glycemic Management Pharmacy) 1 ea UD PRN N/A 08/06/16 09:00 09/05/16 08:59 Polyethylene (Miralax Powder Packet) 17 gm BID PEG 08/06/16 09:00 09/05/16 08:59 Future Hold 08/07/16 21:53 17 GM Baclofen (Lioresal Tab) 10 mg Q3H PRN PO 08/07/16 09:00 09/06/16 08:59 08/08/16 14:05 10 MG Loperamide HCl (Imodium A-D Liquid) 2 mg QD@08 PRN PO 08/07/16 11:00 09/06/16 10:59 08/08/16 05:53 2 MG Insulin Glargine (Lantus Solostar Pen) 12 unit HS SC 08/08/16 21:00 09/07/16 20:59 Objective Vital Signs Date Time Temp Pulse Resp B/P Pulse Ox O2 Delivery O2 Flow Rate FiO2 08/08/16 11:30 28 08/08/16 11:30 Mechanical Ventilator 2.0 08/08/16 09:30 37.1 70 22 132/64 98 Mechanical Ventilator 28 08/08/16 07:30 Mechanical Ventilator 2.0 28 08/08/16 07:30 37.1 65 19 137/58 98 Mechanical Ventilator 28 08/08/16 07:30 28 08/08/16 06:00 64 14 152/61 95 Mechanical Ventilator 28 08/08/16 04:01 36.8 65 14 144/58 100 Mechanical Ventilator 28 08/08/16 04:00 Mechanical Ventilator 2.0 28 08/08/16 04:00 28 08/08/16 02:01 70 16 154/56 96 Mechanical Ventilator 28 08/08/16 00:01 36.8 74 17 139/66 95 Mechanical Ventilator 28 08/08/16 00:00 28 08/08/16 00:00 Mechanical Ventilator 2.0 28 08/07/16 22:00 76 20 156/82 94 Mechanical Ventilator 28 08/07/16 20:01 36.8 72 22 149/88 96 Mechanical Ventilator 28 08/07/16 20:00 Mechanical Ventilator 2.0 28 08/07/16 20:00 28 08/07/16 17:47 79 20 154/61 94 Mechanical Ventilator 28 08/07/16 15:45 Mechanical Ventilator 28 08/07/16 15:45 28 08/07/16 15:45 37.0 81 20 136/61 93 Mechanical Ventilator 28 Physical Exam General Appearance: no apparent distress Eyes: normal inspection, sclerae normal ENT: hearing grossly normal Neck: supple, trachea midline Respiratory/Chest: + pertinent finding (ventilated) Cardiovascular: regular rate, rhythm Abdomen: + distended Extremities: + pertinent finding (quadriplegic) Neurologic/Psychiatric: alert, normal mood/affect Skin: normal color, warm/dry, no rash Laboratory Results CHEST ONE VIEW PORTABLE CLINICAL HISTORY: lobar atelectasis COMPARISON STUDY: 08/05/2016 FINDINGS: A left subclavian central venous catheter, right subclavian A-Port catheter, tracheostomy tube remain in similar position. The heart is the upper limits of normal in size. There is resolving pulmonary vascular congestion. There are improving bibasilar airspace opacities.[ There is no significant pleural fluid. IMPRESSION: 1. Resolving pulmonary vascular congestion 2. Improving bibasilar airspace opacities Item Value Date Time C.difficile Toxin B Gene (PCR) - Final Complete 08/03/16 1130 Stool No C. difficile toxin B gene detected Fungal Smear - Final Resulted 08/02/16 0000 Bronchial Washings Left Lower Lobe Acid Fast Stain - Final Resulted 08/02/16 0000 Bronchial Washings Left Lower Lobe Gram Stain - Final Resulted 08/02/16 0000 Bronchial Washings Left Lower Lobe C.difficile Toxin B Gene (PCR) - Final Complete 07/31/16 1630 Stool No C. difficile toxin B gene detected Gram Stain - Final Complete 07/31/16 0843 Sputum Trach. Tube Suction MRSA DNA Surveillance Screen - Final Complete 07/30/16 1600 Nasal Specimen Negative for MRSA by DNA Probe Urine Culture - Final Complete 07/30/16 0025 Urine,Catheterized Yeast Not Merari Albicans Gram Stain - Final Complete 08/02/16 0000 Bronchial Washings Left Lower Lobe Last 24 Hours Test 08/07/16 20:07 08/08/16 06:41 08/08/16 09:44 08/08/16 14:03 Bedside Glucose 126 mg/dl 83 mg/dl 147 mg/dl White Blood Count 6.74 K/uL Red Blood Count 3.48 M/uL Hemoglobin 9.9 g/dL Hematocrit 33.0 % Mean Corpuscular Volume 94.8 fL Mean Corpuscular Hemoglobin 28.4 pg Mean Corpuscular Hemoglobin Concent 30.0 g/dl Platelet Count 222 K/uL Mean Platelet Volume 9.4 fL Neutrophils (%) (Auto) 38.5 % Lymphocytes (%) (Auto) 50.7 % Monocytes (%) (Auto) 7.6 % Eosinophils (%) (Auto) 2.2 % Basophils (%) (Auto) 0.3 % Neutrophils # (Auto) 2.59 K/uL Lymphocytes # (Auto) 3.42 K/uL Monocytes # (Auto) 0.51 K/uL Eosinophils # (Auto) 0.15 K/uL Basophils # (Auto) 0.02 K/uL RDW Standard Deviation 66.3 fL RDW Coefficient of Variation 19.1 % Immature Granulocyte % (Auto) 0.7 % Immature Granulocyte # (Auto) 0.05 K/uL Venous Blood pH 7.43 Venous Blood Partial Pressure CO2 46 mmHg Venous Blood Partial Pressure O2 42 mmHg Venous Blood HCO3 30 mmol/L Venous Blood Oxygen Saturation 74.6 % Venous Blood Base Excess 4.8 mmol/L Sodium Level 137 mmol/L Potassium Level 4.5 mmol/L Chloride Level 102 mmol/L Carbon Dioxide Level 30 mmol/L Anion Gap 5.0 mmol/L Blood Urea Nitrogen 18 mg/dl Creatinine 0.59 mg/dl Est Creatinine Clear Calc Drug Dose 74.8 ml/min Estimated GFR () 108.4 Estimated GFR (Non- 93.5 BUN/Creatinine Ratio 30.3 Fasting Glucose 85 mg/dl Calcium Level 8.8 mg/dl Phosphorus Level 3.5 mg/dl Magnesium Level 2.0 mg/dl Blood Gas Sample Site R Radial Bedside Blood Gas pH (LAB) 7.41 Bedside Blood Gas pCO2 (LAB) 39 mmHg Bedside Blood Gas pO2 (LAB) 66 mmHg Bedside Blood Gas HCO3 (LAB) 25 meq/L Bedside Blood Gas Total CO2 26 mEq/l Bedside Blood Gas Base Excess (LAB) 0.0 meq/L Bedside Blood Gas O2 Saturation 93.0 % Yogesh Test Pass Oxygen Delivery Device Ventilator Bedside Oxygen Rate (breaths/min) 14 Blood Gas Minute Ventilation 7.9 Bedside FiO2 0 % Blood Gas Tidal Volume 500 Blood Gas PEEP 4 Assessment and Plan Quadriplegic female with history of recurrent UTI and pneumonia now with possible left sided pneumonia and Non-merari albicans yeast UTI. Stenotrophomonas growing from sputum culture, and Acinetobacter Lwoffii growing from bronchoscopy washings. Recommend continuing Bactrim to complete 14 days with patient's history of recurrent infection. Can DC caspofungin upon discharge and continue patient's previously scheduled regimen of IV ertapenem x1 month rotating with p.o. Levaquin for 1 month. I do however feel that this patient may need to discontinue rotational antibiotics in the future due to recurrent yeast infections. If she does continue to have recurrent yeast, likely she would benefit from discontinuation of IV antibiotic therapy on rotational bases. Will follow up with the patient as an outpatient in approximately 2 weeks, and she is otherwise okay for discharge from an ID perspective. Thank you. PROVIDER ADDENDUM: Patient reviewed with Ms. Martinez. Agree with above assessment.
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
--- NOTE | 2016-08-08 20:15 | Critical Care Progress Note ---
Critical Care Progress Note Date of Service Aug 08, 2016. ICU Day ICU Day Number: [address] Virginia Douglas Florence Farris is a 71-year-old female who is well known to the critical care team here at [facility]. She is continued to make great strides this admission towards discharge; however, today it was determined that her bronchial washings grew out Acinetobacter Lwoffi which is sensitive to Bactrim. She is resting comfortably in bed without complaint of shortness of breath, trouble breathing, trouble adjusting to her new ventilator. She denies feelings of fever, malaise, chills. She denies any pain , palpitations, awareness of tachyarrhythmias. She denies feeling of upset stomach, nausea, vomiting. She continues to tolerate feeds per her PEG tube. Patient has been discharged from an ID perspective. ID states that current antibiotic coverage for Stenotrophomonas (sputum culture) and Acinetobacter Lwoffii (bronchoscopy washings) should be a 14 day course of Bactrim. Upon discharge caspofungin can be discontinued and patient can resume previously scheduled regimen of IV ertapenem for 1 month rotating with oral Levaquin for 1 month. However they are highly recommending discontinuation of rotational antibiotics due to the patient's history of recurrent yeast infections. Per pulmonology, Dr. Luther is following the new growth in the bronchial washings and is in agreement with treatment with Bactrim. He was assessing today for plateau pressures which are new ventilator could not do. A recent ABG showed the PaO2 of [address] Luther was acceptable of. He will reevaluate her status tomorrow. Objective Vital Signs - as noted Laboratory Data - as noted Physical Exam: General - NAD, conversing with home healthcare manager and myself on new vent Eyes - PERRL, EOMI No icterus, gaze conjugate ENT - Mucosa moist, no lesions or candidiasis Neck - Supple, trachea midline with tracheostomy in place, no masses or lymphadenopathy, no JVD or bruits Lungs - No paradoxical chest wall movement, diminished bilaterally with crackles in the left base, no wheezes or rhonchi Heart - Reg rate and rhythm, No murmur, rubs, clicks, or gallops appreciated Abdomen - BS present, no bruits noted, tympanic to percussion, soft, nontender, moderately distended, no organomegaly Extremities - No edema, pedal pulses intact Neuro - A&O X 4 Strength: Quadriplegic CN:PERRL, EOMI, no facial asymmetry, uvula/tongue midline Current SOFA Score SOFA Score Response (Comments) Value Level of Hypotension No Hypotension 0 Total 0 Previous SOFA Scores 6 08/03/2016 Assessment & Plan (1) PNA (pneumonia) (2) Quadriplegia (3) vent dep (4) Urinary tract infection (5) Seizure (6) Acute and chronic respiratory failure Neuro: * Continue Lamictal per neurology recommendations' * Now 50 mg twice a day; will increase to 75 later this week * Will need repeat Lamictal level * Continue Neurontin, BuSpar, Lexapro, Plavix, and Aggrenox as per home regimen Pulmonary: * Adequate transition to new ventilator * Repeat ABG with any changes * Infectious disease and pulmonary consult in place for bacterial growth in sputum and bronchial washings * Continue Bactrim for 14 day course per ID Infectious disease: * Final recommendations are recorded in Anaya Martinez's note; Infectious disease has signed off on this patient * Continue to monitor fever curve * Monitor daily CBC Cardiovascular: * History of hypertension: Continue amlodipine * Monitor on telemetry Hematology: * Monitor daily CBC * DVT prophylaxis: Heparin subcutaneous in place : * Monitor I's and O's * Follow daily labs; replete electrolyte as necessary GI: * Patient continues with loose stool; continue Imodium * Dietary consult in place continue tube feeds as recommended: * Currently Nutren 267 TID Endocrine: * Known diabetic continue sliding scale insulin and NovoLog * Monitor Accu-Cheks per nursing protocol * Glycemic consult in place CCT: 0 minutes; Level 3 inpatient Billing, Not including any billable procedures. Thank you for including us in the care of this patient. Please review Dr. Jayesh Coleman's addendum for further recommendations. Consults & Procedures Consultants: Dr Eid- Neuro Sendy Martinez- ID Dr Luther- Pul Procedures: NA Data Medications: Current Inpatient Medications Medications (Trade) Dose Ordered Sig/Tasha Route Start Time Stop Time Status Last Admin Dose Admin Dipyridamole/ Aspirin (Aggrenox 200MG/ 25MG Cap) 1 cap BID PO 07/30/16 09:00 08/29/16 08:59 08/08/16 08:05 1 CAP Bisacodyl (Dulcolax Supp) 10 mg SuMoWeFr@2100 SD 07/30/16 21:00 08/29/16 20:59 Future Hold 07/30/16 21:37 10 MG Phenazopyridine HCl (Pyridium Tab) 200 mg BID PRN PO 07/30/16 02:15 08/29/16 02:14 07/30/16 10:40 200 MG Heparin Sodium (Porcine) (Heparin Sq 5000 Unit/0.5ml) 5,000 unit Q8 SQ 07/30/16 06:00 08/29/16 05:59 08/08/16 14:06 5,000 UNIT Ondansetron HCl (Zofran Inj) 4 mg Q6H PRN IV 07/30/16 02:15 08/29/16 02:14 08/07/16 22:43 4 MG Miscellaneous (Iv Fluids Completed) 1 ea PRN PRN N/A 07/30/16 03:15 07/30/17 03:14 Glucose (Glucose 40% Gel) 15-30 GRAMS 15 GRAMS... UD PRN PO 07/30/16 03:30 08/29/16 03:29 Glucose (Glucose Chew Tab) 4-8 Tablets 4 Tabl... UD PRN PO 07/30/16 03:30 08/29/16 03:29 Dextrose (Dextrose 50% 50ML Syringe) 25-50ML OF 50% DW IV FOR... UD PRN IV 07/30/16 03:30 08/29/16 03:29 Glucagon 1 mg 1 mg UD PRN SQ 07/30/16 03:30 08/29/16 03:29 Ertapenem/Sodium Chloride (Invanz Iv/Nss Ad-Van 50ml) 50 ml @ 100 mls/hr Q24H IV 07/31/16 08:00 08/10/16 07:59 08/08/16 08:02 100 MLS/HR Bisacodyl (Dulcolax Supp) 10 mg TuTh@0530 SD 07/31/16 05:30 08/30/16 05:29 Future Hold 07/31/16 05:59 10 MG Lidocaine (Lidoderm Patch 5%) 2 patch DAILY@2100 TD 07/30/16 21:00 08/29/16 20:59 08/07/16 21:54 2 PATCH Miscellaneous (Remove Lidoderm Patch) 1 ea DAILY@0900 N/A 07/31/16 09:00 08/30/16 08:59 08/08/16 08:06 1 EA Acetaminophen (Tylenol Soln) 650 mg Q4H PRN PEG 07/30/16 18:15 08/29/16 18:14 08/08/16 10:19 650 MG Allopurinol (Zyloprim Tab) 100 mg DAILY PEG 07/31/16 09:00 08/30/16 08:59 08/08/16 08:03 100 MG Al Hydrox/Mg Hydrox/Simethicone (Maalox Max Susp) 15 ml Q4H PRN PEG 07/30/16 18:15 08/29/16 18:14 08/03/16 16:17 15 ML Amlodipine Besylate (Norvasc Tab) 3.75 mg DAILY PEG 07/31/16 09:00 08/30/16 08:59 08/08/16 08:05 3.75 MG Buspirone HCl (BusPAR TAB) 7.5 mg BID PEG 07/30/16 21:00 08/29/16 20:59 08/08/16 08:03 7.5 MG Clopidogrel Bisulfate (plAVix TAB) 75 mg DAILY PEG 07/31/16 09:00 08/30/16 08:59 08/08/16 08:04 75 MG Fluconazole (Diflucan Susp) 100 mg QPM PEG 07/30/16 21:00 08/09/16 20:59 08/07/16 21:52 100 MG Gabapentin (Neurontin) 100 mg QAM PEG 07/31/16 09:00 08/30/16 08:59 08/08/16 08:03 100 MG Gabapentin (Neurontin) 200 mg 1600 PEG 07/30/16 16:00 08/29/16 15:59 08/08/16 16:56 200 MG Pentosan Polysulfate Sodium (Elmiron) 100 mg BID PEG 07/30/16 21:00 08/29/16 20:59 08/08/16 08:05 100 MG Gabapentin (Neurontin) 600 mg HS PEG 07/30/16 21:00 08/29/16 20:59 08/07/16 21:53 600 MG Lorazepam (Ativan Tab) 0.5 mg DAILY PRN PEG 07/30/16 16:45 08/29/16 16:44 Magnesium Hydroxide (Milk Of Magnesia Susp) 30 ml Q12H PRN PEG 07/30/16 16:45 08/29/16 16:44 Future Hold Lamotrigine (Lamictal Tab) 50 mg BID PEG 08/07/16 09:00 09/06/16 08:59 08/08/16 08:03 50 MG Non-Formulary Medication (Non-Formulary Patient'S Own Med) 1 ea TID PEG 07/30/16 21:00 08/29/16 20:59 08/08/16 14:04 1 EA Sterile Water (Tube Feeding Water Flush) 1 ea TID PEG 07/30/16 21:00 08/29/16 20:59 08/08/16 14:04 1 EA Lifitegrast (Xiidra 5% Oph Soln) 1 drop BID OP 07/30/16 21:00 08/29/16 20:59 08/08/16 08:06 1 DROP Heparin Sodium (Porcine) (Heparin 100 Unit/ml 5ml Flush) 5 ml PRN PRN IV 07/30/16 23:45 08/29/16 23:44 Ipratropium [place] (Atrovent Hfa Inhaler) 4 puffs QIDR INH 07/31/16 16:00 08/30/16 15:59 08/08/16 16:55 4 PUFFS Albuterol (Ventolin Hfa Inhaler) 4 puffs QIDR INH 07/31/16 16:00 08/30/16 15:59 08/08/16 16:54 4 PUFFS Escitalopram Oxalate 20 mg 20 mg QAM PEG 08/01/16 09:00 08/31/16 08:59 08/08/16 08:03 20 MG Caspofungin/ Sodium Chloride (Cancidas Inj/ Nss 250ml) 260 ml @ 250 mls/hr DAILY@0900 IV 08/02/16 09:00 08/12/16 08:59 08/08/16 09:06 250 MLS/HR Non-Formulary Medication (Non-Formulary Patient'S Own Med) 1 ea HS OP 08/02/16 21:00 09/01/16 20:59 08/07/16 22:01 1 EA Lactobacillus Acidophilus (Floranex Tab) 4 tab TID@0900,1400,2100 PEG 08/02/16 14:00 09/01/16 13:59 08/08/16 14:05 4 TAB Enteral Nutritional Formula (Prosource No Carb) 30 ml TID@0900,1400,2100 PEG 08/02/16 14:00 09/01/16 13:59 Future Hold 08/03/16 07:37 30 ML Sterile Water (Tube Feeding Water Flush) 1 ea TID@0900,1400,2100 PEG 08/02/16 14:00 09/01/16 13:59 08/08/16 14:04 1 EA Insulin Aspart (novoLOG ASPART) tube feeds = 54 g of C... TID@0845,1345,2045 SC 08/02/16 13:45 Future hold 08/06/16 21:04 7 UNITS Loperamide HCl 2 mg 2 mg DAILY PRN PO 08/04/16 09:00 09/03/16 08:59 08/05/16 09:05 2 MG Promethazine HCl/ Sodium Chloride (Phenergan Inj/ Nss 50ml) 50.5 ml @ 204 mls/hr Q6H PRN IV 08/04/16 10:45 09/03/16 10:44 08/06/16 22:39 204 MLS/HR Trimethoprim/ Sulfamethoxazole (Septra Susp) 20 ml Q12 PEG 08/04/16 14:15 08/11/16 14:14 08/08/16 08:02 20 ML Miscellaneous Information (Consult Glycemic Management Pharmacy) 1 ea UD PRN N/A 08/06/16 09:00 09/05/16 08:59 Polyethylene (Miralax Powder Packet) 17 gm BID PEG 08/06/16 09:00 09/05/16 08:59 Future Hold 08/07/16 21:53 17 GM Baclofen (Lioresal Tab) 10 mg Q3H PRN PO 08/07/16 09:00 09/06/16 08:59 08/08/16 18:43 10 MG Loperamide HCl (Imodium A-D Liquid) 2 mg QD@08 PRN PO 08/07/16 11:00 09/06/16 10:59 08/08/16 05:53 2 MG Insulin Glargine (Lantus Solostar Pen) 12 unit HS SC 08/08/16 21:00 09/07/16 20:59 I & O: 24-Hour Column 08/08/16 08:00 Intake Total 1622 ml Output Total 2550 ml Balance -928 ml Vital Signs: Date Time Temp Pulse Resp B/P Pulse Ox O2 Delivery O2 Flow Rate FiO2 08/08/16 14:00 68 18 155/85 93 08/08/16 13:01 70 27 156/81 99 08/08/16 13:00 69 21 99 08/08/16 12:00 69 18 138/71 96 08/08/16 11:30 28 08/08/16 11:30 37.2 68 22 132/64 98 Mechanical Ventilator 28 08/08/16 11:30 Mechanical Ventilator 2.0 28 08/08/16 11:01 73 24 153/67 95 08/08/16 11:00 71 14 95 08/08/16 10:00 70 16 132/64 93 08/08/16 09:30 37.1 70 22 132/64 98 Mechanical Ventilator 28 08/08/16 09:00 65 17 141/76 95 08/08/16 08:01 66 14 142/59 08/08/16 08:00 66 16 08/08/16 07:30 Mechanical Ventilator 2.0 28 08/08/16 07:30 37.1 65 19 137/58 98 Mechanical Ventilator 28 08/08/16 07:30 28 08/08/16 07:01 63 14 137/58 97 08/08/16 07:00 63 14 97 08/08/16 06:00 64 14 152/61 95 Mechanical Ventilator 28 08/08/16 04:01 36.8 65 14 144/58 100 Mechanical Ventilator 28 08/08/16 04:00 Mechanical Ventilator 2.0 28 08/08/16 04:00 28 08/08/16 02:01 70 16 154/56 96 Mechanical Ventilator 28 08/08/16 00:01 36.8 74 17 139/66 95 Mechanical Ventilator 28 08/08/16 00:00 28 08/08/16 00:00 Mechanical Ventilator 2.0 28 08/07/16 22:00 76 20 156/82 94 Mechanical Ventilator 28 Laboratory Results: Last 24 Hours Test 08/08/16 06:41 08/08/16 09:44 08/08/16 14:03 08/08/16 19:33 White Blood Count 6.74 K/uL Red Blood Count 3.48 M/uL Hemoglobin 9.9 g/dL Hematocrit 33.0 % Mean Corpuscular Volume 94.8 fL Mean Corpuscular Hemoglobin 28.4 pg Mean Corpuscular Hemoglobin Concent 30.0 g/dl Platelet Count 222 K/uL Mean Platelet Volume 9.4 fL Neutrophils (%) (Auto) 38.5 % Lymphocytes (%) (Auto) 50.7 % Monocytes (%) (Auto) 7.6 % Eosinophils (%) (Auto) 2.2 % Basophils (%) (Auto) 0.3 % Neutrophils # (Auto) 2.59 K/uL Lymphocytes # (Auto) 3.42 K/uL Monocytes # (Auto) 0.51 K/uL Eosinophils # (Auto) 0.15 K/uL Basophils # (Auto) 0.02 K/uL RDW Standard Deviation 66.3 fL RDW Coefficient of Variation 19.1 % Immature Granulocyte % (Auto) 0.7 % Immature Granulocyte # (Auto) 0.05 K/uL Venous Blood pH 7.43 Venous Blood Partial Pressure CO2 46 mmHg Venous Blood Partial Pressure O2 42 mmHg Venous Blood HCO3 30 mmol/L Venous Blood Oxygen Saturation 74.6 % Venous Blood Base Excess 4.8 mmol/L Sodium Level 137 mmol/L Potassium Level 4.5 mmol/L Chloride Level 102 mmol/L Carbon Dioxide Level 30 mmol/L Anion Gap 5.0 mmol/L Blood Urea Nitrogen 18 mg/dl Creatinine 0.59 mg/dl Est Creatinine Clear Calc Drug Dose 74.8 ml/min Estimated GFR () 108.4 Estimated GFR (Non- 93.5 BUN/Creatinine Ratio 30.3 Bedside Glucose 83 mg/dl 147 mg/dl 120 mg/dl Fasting Glucose 85 mg/dl Calcium Level 8.8 mg/dl Phosphorus Level 3.5 mg/dl Magnesium Level 2.0 mg/dl Blood Gas Sample Site R Radial Bedside Blood Gas pH (LAB) 7.41 Bedside Blood Gas pCO2 (LAB) 39 mmHg Bedside Blood Gas pO2 (LAB) 66 mmHg Bedside Blood Gas HCO3 (LAB) 25 meq/L Bedside Blood Gas Total CO2 26 mEq/l Bedside Blood Gas Base Excess (LAB) 0.0 meq/L Bedside Blood Gas O2 Saturation 93.0 % Yogesh Test Pass Oxygen Delivery Device Ventilator Bedside Oxygen Rate (breaths/min) 14 Blood Gas Minute Ventilation 7.9 Bedside FiO2 0 % Blood Gas Tidal Volume 500 Blood Gas PEEP 4 Problem Qualifiers (1) Urinary tract infection: Urinary tract infection type: catheter-associated UTI Indwelling urinary catheter type: indwelling urethral catheter Encounter type: initial encounter Qualified Codes: T83.511A - Infection and inflammatory reaction due to indwelling urethral catheter, initial encounter; N39.0 - Urinary tract infection, site not specified
[2016-08-08] MEDS ORDERED: INSULIN GLARGINE SOLOSTAR 100 UNITS/ML 3 ML PEN SC SCH (21:00)
[2016-08-08] MEDS: [UNRECOGNIZED DRUG - OTHER] OP SCH (22:25)
[2016-08-08] MEDS: LIDODERM (LIDOCAINE) PATCH 5% TD SCH (22:26)
[2016-08-08] MEDS ORDERED: LORAZEPAM 2 MG/ML 1 ML VIAL ONE (22:57)
[2016-08-08] MEDS ORDERED: NURSING VERBAL MED ORDER ONE ×2 (22:57→23:15)
[2016-08-08] MEDS: FLUCONAZOLE SUSP 100 MG/10 ML UDP PEG SCH (23:50)
--- NOTE | 2016-08-08 23:56 | Critical Care Progress Note ---
Critical Care Progress Note Date of Service Aug 08, 2016. Critical Care Progress Note Just before 2300, I was alerted that Florence was having Seizure like movements of the face and eyes. When I entered she is not reactive and in more of a post- ictal state. Due to her prior seizure on 07/30, she was already being worked up and was being treated with Lamictal 50mg BID, with a goal of 100mg over the next 3 weeks. I spoke with Dr. Jennifer Martinez in regards to any further suggestions. While on the phone with her, I was alerted that Florence was again demonstrating seizure activity which subsided after about [address] Martinez advised giving a dose of Ativan followed by Keppra 500mg BID. During this episode, Florence's O2 Sats fell to the mid 80's. Erica Connor from respiratory was at the beside and increased the O2 to 4L to Florence's new ventilator. Over the course of 10 minutes, we were able to decrease her back to her 2L with adequate saturations > 92%. I also updated Dr. Hernandez the diamond sander planning assistant; he had no further suggestions for treatment at this time. During this event, her blood sugar was checked at was 250. Stat labs PRP and electrolytes were also drawn. Her behavior was not focal in nature and did not appear to be stroke like. Her home care provider was present and stated that this activity was much like the seizure that brought her in a week ago; however , shorter. Will continue to follow. I have placed another consult to Dr. Martinez to follow-up with Florence tomorrow. Florence's daughter arrived. I was able to answer her questions.
[2016-08-09] VITALS (26 sets, daily range): BP systolic 124–173; BP diastolic 60–91; PULSE 60–73; TEMP 36.6–37.1; O2SAT 92–100
[2016-08-09] MEDS ORDERED: LEVETIRACTAM 500 MG in DEXTROSE 5% 100ML IV SCH ×2
[2016-08-09 00:03] LABS: CALCIUM 8.6 mg/dl (8.5-10.1); CREATININE 0.69 mg/dl (0.60-1.20); PHOSPHORUS 3.4 mg/dl (2.5-4.9); POTASSIUM 4.3 mmol/L (3.5-5.1)
[2016-08-09] MEDS: SULFA/TRIMETH SUSP 800/160MG 20ML UDC PEG SCH ×3 (00:08→20:24)
[2016-08-09] MEDS: PENTOSAN POLYSULFATE SODIUM 100 MG CAP PEG SCH ×3 (00:09→20:22)
[2016-08-09 06:08] LABS: VEN BLOOD GAS BASE EXCESS 2.8 mmol/L
[2016-08-09 06:22] LABS: HEMATOCRIT 34.3 % (37-47); MEAN CELL VOLUME 94.8 fL (80-100); MEAN CORPUSCULAR HEMOGLOBIN 28.5 pg (25-34); MEAN PLATELET VOLUME 9.6 fL (7.4-10.4); PLATELET COUNT 253 K/uL (130-400); RED BLOOD COUNT 3.62 M/uL (4.2-5.4); WHITE BLOOD COUNT 7.23 K/uL (4.8-10.8)
[2016-08-09] MEDS: HEPARIN SOD 5000 UNIT/0.5 ML CARP SQ SCH ×3 (06:32→20:32)
[2016-08-09 06:33] LABS: CALCIUM 8.6 mg/dl (8.5-10.1); CREATININE 0.54 mg/dl (0.60-1.20); MAGNESIUM 2.1 mg/dl (1.8-2.4); PHOSPHORUS 3.8 mg/dl (2.5-4.9); POTASSIUM 4.4 mmol/L (3.5-5.1)
[2016-08-09] MEDS: IPRATROPIUM BROMIDE HFA INHALER INH SCH ×4 (07:45→20:34)
[2016-08-09] MEDS: ALBUTEROL HFA 8 GM INHALER INH SCH ×4 (07:45→20:34)
--- NOTE | 2016-08-09 08:23 | DIAGNOSTIC IMAGING REPORT ---
CHEST ONE VIEW PORTABLE CLINICAL HISTORY: Tracheostomy. Pneumonia. COMPARISON STUDY: Chest radiograph August 08, 2016. FINDINGS: A tracheostomy tube, left subclavian central line and right subclavian [id number] remain in place. There may be a trace right pleural effusion. There is no pneumothorax. Mild interstitial thickening persists. Left basilar opacity persists. An intracanalicular catheter is again noted. IMPRESSION: 1. No change in position of lines and tubes. 2. No significant change in appearance of the chest with mild left basilar opacity and mild interstitial thickening. Electronically signed by: Diallo Parker M.D. 08/09/2016 8:22 AM Dictated Date/Time: 08/09/2016 8:20 AM
[2016-08-09] MEDS: ERTAPENEM IV 1 GM in SODIUM CHLOR 0.9% AD-VAN 50ML IV SCH (08:30)
[2016-08-09] MEDS: CASPOFUNGIN INJ 50 MG in SODIUM CHLORIDE 0.9% 250ML 250 ML IV SCH (08:31)
[2016-08-09] MEDS: [UNRECOGNIZED DRUG - SUPPLY] OP SCH ×2 (08:33→20:18)
[2016-08-09] MEDS: PROPYLENE GLYCOL 0.6% (OPHTH) 15 DROP/ML 10ML BTL OPB SCH (08:33)
[2016-08-09] MEDS: LIFITEGRAST 5% OP SCH ×2 (08:34→20:20)
[2016-08-09] MEDS: BusPIRone 15 MG TAB PEG SCH ×2 (08:34→20:21)
[2016-08-09] MEDS: TUBE FEEDING WATER FLUSH PEG SCH ×6 (08:37→20:26)
[2016-08-09] MEDS: DIPYRIDAMOLE/ASPIRIN CAP PO SCH ×2 (08:38→20:27)
[2016-08-09] MEDS: ENTERAL NUTRITION FORMULA PEG SCH ×3 (08:39→20:24)
[2016-08-09] MEDS: GABAPENTIN 250 MG/5 ML 470 ML BTL PEG SCH ×4 (08:41→20:24)
[2016-08-09] MEDS: INSULIN ASPART 100 UNITS/ML 3 ML PEN SC SCH ×3 (08:45→20:16)
[2016-08-09] MEDS: AMLODIPINE BESYLATE 5 MG TAB PEG SCH (09:13)
[2016-08-09] MEDS: LACTOBACILLUS ACIDOPHILUS (FLORANEX) TAB PEG SCH ×3 (09:14→20:23)
[2016-08-09] MEDS: CLOPIDOGREL BISULFATE 75 MG TAB PEG SCH (09:14)
[2016-08-09] MEDS: ALLOPURINOL 100 MG TAB PEG SCH (09:14)
[2016-08-09] MEDS: ESCITALOPRAM OXALATE ORAL SOLN 5 MG/5 ML PEG SCH (09:15)
--- NOTE | 2016-08-09 09:17 | Neurology Progress Notes ---
Neurology Progress Note Date of Service Aug 09, 2016. Subjective Patient was originally seen and evaluated by Dr. Eid on July 30 and regarding new onset seizure. I was called last night by physician painter assistant due to repeat seizure. Patient had 2 small seizures lasting under a minute back-to- back. Per description of staff at the time of the patient's head was turning to the left with eye twitching each seizure lasting around 45-60 seconds at around 10:30 PM. After the second seizure on patient was given Ativan based off of my recommendation. Patient was originally recommended Lamictal by Dr. Eid on the . Currently the patient has been titrated up to 50 mg twice a day. It's my understanding that her next titration up would be next Saturday. Because of breakthrough seizures and patient not being up at therapeutic dose yet for Lamictal, I recommended starting Keppra 500 mg twice a day to bridge her. Patient is more tired today. No other complaints. There was some brief desaturations with her seizures which would be expected. Previous evaluation and workup was reviewed. Patient is a known quadriplegic with trach. Patient is unable to move her extremities and speech is difficult. Patient is fed through a PEG tube and receives her medications through the PEG tube. MRI of the brain reported images from the was reviewed. 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 No new strokes. No New neurological deficits reported today. this was confirmed by caregivers Objective Date Time Temp Pulse Resp B/P Pulse Ox O2 Delivery O2 Flow Rate FiO2 08/09/16 06:00 61 17 141/76 97 Mechanical Ventilator 08/09/16 05:00 65 17 149/76 96 Mechanical Ventilator 08/09/16 04:00 37.0 69 17 141/76 94 Mechanical Ventilator 08/09/16 04:00 28 08/09/16 04:00 Mechanical Ventilator 2.0 08/09/16 02:00 65 22 156/87 92 Mechanical Ventilator 08/09/16 01:59 68 22 92 Mechanical Ventilator 08/09/16 01:00 69 17 155/81 94 Mechanical Ventilator 08/09/16 00:00 Mechanical Ventilator 2.0 28 08/09/16 00:00 37.1 68 17 170/91 96 Mechanical Ventilator 08/09/16 00:00 28 08/08/16 22:00 72 18 156/84 96 Mechanical Ventilator 28 08/08/16 20:00 37.0 71 20 154/74 97 Mechanical Ventilator 28 08/08/16 20:00 Mechanical Ventilator 2.0 28 08/08/16 20:00 28 08/08/16 18:00 67 18 163/83 94 Mechanical Ventilator 28 08/08/16 16:00 28 08/08/16 16:00 37.0 79 20 154/79 95 Mechanical Ventilator 28 08/08/16 16:00 Mechanical Ventilator 2.0 28 08/08/16 14:00 68 18 155/85 93 08/08/16 13:01 70 27 156/81 99 08/08/16 13:00 69 21 99 08/08/16 12:00 69 18 138/71 96 08/08/16 11:30 28 08/08/16 11:30 37.2 68 22 132/64 98 Mechanical Ventilator 28 08/08/16 11:30 Mechanical Ventilator 2.0 28 08/08/16 11:01 73 24 153/67 95 08/08/16 11:00 71 14 95 08/08/16 10:00 70 16 132/64 93 08/08/16 09:30 37.1 70 22 132/64 98 Mechanical Ventilator 28 Last 24 Hours Test 08/08/16 09:44 08/08/16 14:03 08/08/16 19:33 08/08/16 22:45 Blood Gas Sample Site R Radial Bedside Blood Gas pH (LAB) 7.41 Bedside Blood Gas pCO2 (LAB) 39 mmHg Bedside Blood Gas pO2 (LAB) 66 mmHg Bedside Blood Gas HCO3 (LAB) 25 meq/L Bedside Blood Gas Total CO2 26 mEq/l Bedside Blood Gas Base Excess (LAB) 0.0 meq/L Bedside Blood Gas O2 Saturation 93.0 % Yogesh Test Pass Oxygen Delivery Device Ventilator Bedside Oxygen Rate (breaths/min) 14 Blood Gas Minute Ventilation 7.9 Bedside FiO2 0 % Blood Gas Tidal Volume 500 Blood Gas PEEP 4 Bedside Glucose 147 mg/dl 120 mg/dl 250 mg/dl Test 08/08/16 23:30 08/09/16 05:44 Sodium Level 135 mmol/L 136 mmol/L Potassium Level 4.3 mmol/L 4.4 mmol/L Chloride Level 100 mmol/L 103 mmol/L Carbon Dioxide Level 29 mmol/L 31 mmol/L Anion Gap 6.0 mmol/L 2.0 mmol/L Blood Urea Nitrogen 19 mg/dl 18 mg/dl Creatinine 0.69 mg/dl 0.54 mg/dl Est Creatinine Clear Calc Drug Dose 64.0 ml/min 81.7 ml/min Estimated GFR () 102.9 111.6 Estimated GFR (Non- 88.8 96.3 BUN/Creatinine Ratio 28.0 34.0 Random Glucose 187 mg/dl 116 mg/dl Calcium Level 8.6 mg/dl 8.6 mg/dl Phosphorus Level 3.4 mg/dl 3.8 mg/dl Magnesium Level 2.0 mg/dl 2.1 mg/dl White Blood Count 7.23 K/uL Red Blood Count 3.62 M/uL Hemoglobin 10.3 g/dL Hematocrit 34.3 % Mean Corpuscular Volume 94.8 fL Mean Corpuscular Hemoglobin 28.5 pg Mean Corpuscular Hemoglobin Concent 30.0 g/dl RDW Standard Deviation 65.8 fL RDW Coefficient of Variation 18.9 % Platelet Count 253 K/uL Mean Platelet Volume 9.6 fL Venous Blood pH 7.40 Venous Blood Partial Pressure CO2 47 mmHg Venous Blood Partial Pressure O2 40 mmHg Venous Blood HCO3 28 mmol/L Venous Blood Oxygen Saturation 70.0 % Venous Blood Base Excess 2.8 mmol/L Exam: Gen.: Patient is sleeping but easily arousable by voice. HEENT: Normocephalic /atraumatic, no scleral icterus Heart: Regular rate and rhythm Extremities: No gross deformities or rashes noted Neurological examination: Mental status: Patient is alert and oriented. Attention and concentration acceptable for the situation. Speech is low volume and difficult to understand but patient is understandable for caregivers Cranial nerve: Funduscopic examination was limited and not well visualized. Pupils equally round and reactive to light. Extraocular muscles intact without nystagmus. No facial asymmetry noted. Facial sensation intact. Tongue is midline. Good palatal elevation. Hearing grossly intact to voice. Strength: Patient is not able to move any of her extremities Current Inpatient Medications Medications (Trade) Dose Ordered Sig/Tasha Route Start Time Stop Time Status Last Admin Dose Admin Dipyridamole/ Aspirin (Aggrenox 200MG/ 25MG Cap) 1 cap BID PO 07/30/16 09:00 08/29/16 08:59 08/08/16 23:51 1 CAP Bisacodyl (Dulcolax Supp) 10 mg SuMoWeFr@2100 IN 07/30/16 21:00 08/29/16 20:59 Future Hold 07/30/16 21:37 10 MG Phenazopyridine HCl (Pyridium Tab) 200 mg BID PRN PO 07/30/16 02:15 08/29/16 02:14 07/30/16 10:40 200 MG Heparin Sodium (Porcine) (Heparin Sq 5000 Unit/0.5ml) 5,000 unit Q8 SQ 07/30/16 06:00 08/29/16 05:59 08/09/16 06:32 5,000 UNIT Ondansetron HCl (Zofran Inj) 4 mg Q6H PRN IV 07/30/16 02:15 08/29/16 02:14 08/07/16 22:43 4 MG Miscellaneous (Iv Fluids Completed) 1 ea PRN PRN N/A 07/30/16 03:15 07/30/17 03:14 Glucose (Glucose 40% Gel) 15-30 GRAMS 15 GRAMS... UD PRN PO 07/30/16 03:30 08/29/16 03:29 Glucose (Glucose Chew Tab) 4-8 Tablets 4 Tabl... UD PRN PO 07/30/16 03:30 08/29/16 03:29 Dextrose (Dextrose 50% 50ML Syringe) 25-50ML OF 50% DW IV FOR... UD PRN IV 07/30/16 03:30 08/29/16 03:29 Glucagon 1 mg 1 mg UD PRN SQ 07/30/16 03:30 08/29/16 03:29 Ertapenem/Sodium Chloride (Invanz Iv/Nss Ad-Van 50ml) 50 ml @ 100 mls/hr Q24H IV 07/31/16 08:00 08/10/16 07:59 08/08/16 08:02 100 MLS/HR Bisacodyl (Dulcolax Supp) 10 mg TuTh@0530 IN 07/31/16 05:30 08/30/16 05:29 Future Hold 07/31/16 05:59 10 MG Lidocaine (Lidoderm Patch 5%) 2 patch DAILY@2100 TD 07/30/16 21:00 08/29/16 20:59 08/08/16 22:26 1 PATCH Miscellaneous (Remove Lidoderm Patch) 1 ea DAILY@0900 N/A 07/31/16 09:00 08/30/16 08:59 08/08/16 08:06 1 EA Acetaminophen (Tylenol Soln) 650 mg Q4H PRN PEG 07/30/16 18:15 08/29/16 18:14 08/08/16 20:35 650 MG Allopurinol (Zyloprim Tab) 100 mg DAILY PEG 07/31/16 09:00 08/30/16 08:59 08/08/16 08:03 100 MG Al Hydrox/Mg Hydrox/Simethicone (Maalox Max Susp) 15 ml Q4H PRN PEG 07/30/16 18:15 08/29/16 18:14 08/03/16 16:17 15 ML Amlodipine Besylate (Norvasc Tab) 3.75 mg DAILY PEG 07/31/16 09:00 08/30/16 08:59 08/08/16 08:05 3.75 MG Buspirone HCl (BusPAR TAB) 7.5 mg BID PEG 07/30/16 21:00 08/29/16 20:59 08/08/16 21:00 7.5 MG Clopidogrel Bisulfate (plAVix TAB) 75 mg DAILY PEG 07/31/16 09:00 08/30/16 08:59 08/08/16 08:04 75 MG Fluconazole (Diflucan Susp) 100 mg QPM PEG 07/30/16 21:00 08/09/16 20:59 08/08/16 23:50 100 MG Gabapentin (Neurontin) 100 mg QAM PEG 07/31/16 09:00 08/30/16 08:59 08/08/16 08:03 100 MG Gabapentin (Neurontin) 200 mg 1600 PEG 07/30/16 16:00 08/29/16 15:59 08/08/16 16:56 200 MG Pentosan Polysulfate Sodium (Elmiron) 100 mg BID PEG 07/30/16 21:00 08/29/16 20:59 08/09/16 00:09 100 MG Gabapentin (Neurontin) 600 mg HS PEG 07/30/16 21:00 08/29/16 20:59 08/08/16 22:21 600 MG Lorazepam (Ativan Tab) 0.5 mg DAILY PRN PEG 07/30/16 16:45 08/29/16 16:44 Magnesium Hydroxide (Milk Of Magnesia Susp) 30 ml Q12H PRN PEG 07/30/16 16:45 08/29/16 16:44 Future Hold Lamotrigine (Lamictal Tab) 50 mg BID PEG 08/07/16 09:00 09/06/16 08:59 08/08/16 23:51 50 MG Non-Formulary Medication (Non-Formulary Patient'S Own Med) 1 ea TID PEG 07/30/16 21:00 08/29/16 20:59 08/08/16 22:25 1 EA Sterile Water (Tube Feeding Water Flush) 1 ea TID PEG 07/30/16 21:00 08/29/16 20:59 08/08/16 22:25 1 EA Lifitegrast (Xiidra 5% Oph Soln) 1 drop BID OP 07/30/16 21:00 08/29/16 20:59 08/08/16 22:25 1 DROP Heparin Sodium (Porcine) (Heparin 100 Unit/ml 5ml Flush) 5 ml PRN PRN IV 07/30/16 23:45 08/29/16 23:44 Ipratropium [place] (Atrovent Hfa Inhaler) 4 puffs QIDR INH 07/31/16 16:00 08/30/16 15:59 08/08/16 20:00 4 PUFFS Albuterol (Ventolin Hfa Inhaler) 4 puffs QIDR INH 07/31/16 16:00 08/30/16 15:59 08/08/16 20:00 4 PUFFS Escitalopram Oxalate 20 mg 20 mg QAM PEG 08/01/16 09:00 08/31/16 08:59 08/08/16 08:03 20 MG Caspofungin/ Sodium Chloride (Cancidas Inj/ Nss 250ml) 260 ml @ 250 mls/hr DAILY@0900 IV 08/02/16 09:00 08/12/16 08:59 08/08/16 09:06 250 MLS/HR Non-Formulary Medication (Non-Formulary Patient'S Own Med) 1 ea HS OP 08/02/16 21:00 09/01/16 20:59 08/08/16 22:25 1 EA Lactobacillus Acidophilus (Floranex Tab) 4 tab TID@0900,1400,2100 PEG 08/02/16 14:00 09/01/16 13:59 08/08/16 21:00 4 TAB Enteral Nutritional Formula (Prosource No Carb) 30 ml TID@0900,1400,2100 PEG 08/02/16 14:00 09/01/16 13:59 Future Hold 08/03/16 07:37 30 ML Sterile Water (Tube Feeding Water Flush) 1 ea TID@0900,1400,2100 PEG 08/02/16 14:00 09/01/16 13:59 08/08/16 22:25 1 EA Insulin Aspart (novoLOG ASPART) tube feeds = 54 g of C... TID@0845,1345,2045 SC 08/02/16 13:45 Future hold 08/06/16 21:04 7 UNITS Loperamide HCl 2 mg 2 mg DAILY PRN PO 08/04/16 09:00 09/03/16 08:59 08/05/16 09:05 2 MG Promethazine HCl/ Sodium Chloride (Phenergan Inj/ Nss 50ml) 50.5 ml @ 204 mls/hr Q6H PRN IV 08/04/16 10:45 09/03/16 10:44 08/06/16 22:39 204 MLS/HR Trimethoprim/ Sulfamethoxazole (Septra Susp) 20 ml Q12 PEG 08/04/16 14:15 08/11/16 14:14 08/09/16 00:08 20 ML Miscellaneous Information (Consult Glycemic Management Pharmacy) 1 ea UD PRN N/A 08/06/16 09:00 09/05/16 08:59 Polyethylene (Miralax Powder Packet) 17 gm BID PEG 08/06/16 09:00 09/05/16 08:59 Future Hold 08/07/16 21:53 17 GM Baclofen (Lioresal Tab) 10 mg Q3H PRN PO 08/07/16 09:00 09/06/16 08:59 08/08/16 18:43 10 MG Loperamide HCl (Imodium A-D Liquid) 2 mg QD@08 PRN PO 08/07/16 11:00 09/06/16 10:59 08/08/16 05:53 2 MG Insulin Glargine 12 unit 12 unit HS SC 08/08/16 21:00 09/07/16 20:59 08/08/16 22:28 12 UNIT Levetiracetam/ Dextrose (Keppra Iv/D5 100ml) 105 ml @ 420 mls/hr Q12H IV 08/09/16 00:00 09/08/16 00:00 08/08/16 23:43 420 MLS/HR Impression This is a 71-year-old quadriplegic with 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 Patient had breakthrough seizures last night. Patient is slowly being titrated up on Lamictal but is only at 50 mg twice a day which is likely subtherapeutic for treatment of epilepsy. No reported medication side effects to Lamictal. The patient is tired this morning likely combination of postictal, Ativan, and possibly addition of Keppra. No new neurological symptoms concerning for any new structural lesions. Plan Continue Lamictal titration as previously instructed in Dr. Eid's consultation note. Continue Keppra 500 mg twice a day. Can reasonably convert this to liquid formulation to go through the PEG tube. Discussed with patient and caregiver that once Lamictal is titrated up to an appropriate treatment dose, Keppra could be considered to be discontinued in the future. Discussed with caregivers that if the patient has another seizure at home, but if it's only a single seizure and she recovers appropriately, there is no need to go to the emergency room. Patient can call the clinic in medications can be adjusted over the phone. If the patient has multiple seizures [id number] she may need to go to the emergency room for evaluation and treatment. Anticipate that she will likely easily be controlled once Lamictal is titrated up to an appropriate treatment dose. Agree that discharge should probably be held to make sure that the patient is 24 hours seizure-free before she is released back to home with caregivers. Follow-up in neurology clinic in approximately 1 month. Thank you for allowing me to participate in this patient's care. If there is any questions or concerns, feel free to call/page me.
[2016-08-09] MEDS: LEVETIRACETAM SOLN 500 MG/5 ML UDP PO SCH ×2 (09:33→20:29)
--- NOTE | 2016-08-09 10:10 | Critical Care Progress Note ---
Critical Care Progress Note Date of Service Aug 09, 2016. Attending Subjective Had a seizures last night. Neurology added [place]. No recurrent seizures. Would like 24 hours seizure free before discharge. Her vent status is stable. Objective Vital Signs - as noted Laboratory Data - as noted Physical Exam: General - NAD, conversing with home assistant child care teacher and myself on new vent Eyes - PERRL, EOMI No icterus, gaze conjugate ENT - Mucosa moist, no lesions or candidiasis Neck - Supple, trachea midline with tracheostomy in place, no masses or lymphadenopathy, no JVD or bruits Lungs - No paradoxical chest wall movement, diminished bilaterally with crackles in the left base, no wheezes or rhonchi Heart - Reg rate and rhythm, No murmur, rubs, clicks, or gallops appreciated Abdomen - BS present, no bruits noted, tympanic to percussion, soft, nontender, moderately distended, no organomegaly Extremities - No edema, pedal pulses intact Neuro - A&O X 4 Strength: Quadriplegic CN:PERRL, EOMI, no facial asymmetry, uvula/tongue midline Current SOFA Score SOFA Score Response (Comments) Value PaO2/FiO2 (mmHg) < 400 1 SaO2 / FIO2 142 - 220 2 Level of Hypotension No Hypotension 0 Creatinine (mg/dL) 1.2 - 1.9 1 Total 4 Previous SOFA Scores 6 08/03/2016 Assessment & Plan (1) PNA (pneumonia) no clinical changes. (2) Quadriplegia (3) vent dep (4) Urinary tract infection (5) Seizure As noted in the HPI. New Rx noted. (6) Acute and chronic respiratory failure Consults & Procedures Consultants: Dr Eid- Neuro Sendy Martinez- ID Dr Luther- Pulm Procedures: NA Data Medications: Current Inpatient Medications Medications (Trade) Dose Ordered Sig/Tasha Route Start Time Stop Time Status Last Admin Dose Admin Dipyridamole/ Aspirin (Aggrenox 200MG/ 25MG Cap) 1 cap BID PO 07/30/16 09:00 08/29/16 08:59 08/09/16 08:38 1 CAP Bisacodyl (Dulcolax Supp) 10 mg SuMoWeFr@2100 MN 07/30/16 21:00 08/29/16 20:59 Future Hold 07/30/16 21:37 10 MG Phenazopyridine HCl (Pyridium Tab) 200 mg BID PRN PO 07/30/16 02:15 08/29/16 02:14 07/30/16 10:40 200 MG Heparin Sodium (Porcine) (Heparin Sq 5000 Unit/0.5ml) 5,000 unit Q8 SQ 07/30/16 06:00 08/29/16 05:59 08/09/16 06:32 5,000 UNIT Ondansetron HCl (Zofran Inj) 4 mg Q6H PRN IV 07/30/16 02:15 08/29/16 02:14 08/07/16 22:43 4 MG Miscellaneous (Iv Fluids Completed) 1 ea PRN PRN N/A 07/30/16 03:15 07/30/17 03:14 Glucose (Glucose 40% Gel) 15-30 GRAMS 15 GRAMS... UD PRN PO 07/30/16 03:30 08/29/16 03:29 Glucose (Glucose Chew Tab) 4-8 Tablets 4 Tabl... UD PRN PO 07/30/16 03:30 08/29/16 03:29 Dextrose (Dextrose 50% 50ML Syringe) 25-50ML OF 50% DW IV FOR... UD PRN IV 07/30/16 03:30 08/29/16 03:29 Glucagon 1 mg 1 mg UD PRN SQ 07/30/16 03:30 08/29/16 03:29 Ertapenem/Sodium Chloride (Invanz Iv/Nss Ad-Van 50ml) 50 ml @ 100 mls/hr Q24H IV 07/31/16 08:00 08/10/16 07:59 08/09/16 08:30 100 MLS/HR Bisacodyl (Dulcolax Supp) 10 mg TuTh@0530 MN 07/31/16 05:30 08/30/16 05:29 Future Hold 07/31/16 05:59 10 MG Lidocaine (Lidoderm Patch 5%) 2 patch DAILY@2100 TD 07/30/16 21:00 08/29/16 20:59 08/08/16 22:26 1 PATCH Miscellaneous (Remove Lidoderm Patch) 1 ea DAILY@0900 N/A 07/31/16 09:00 08/30/16 08:59 08/09/16 09:30 1 EA Acetaminophen (Tylenol Soln) 650 mg Q4H PRN PEG 07/30/16 18:15 08/29/16 18:14 08/08/16 20:35 650 MG Allopurinol (Zyloprim Tab) 100 mg DAILY PEG 07/31/16 09:00 08/30/16 08:59 08/09/16 09:14 100 MG Al Hydrox/Mg Hydrox/Simethicone (Maalox Max Susp) 15 ml Q4H PRN PEG 07/30/16 18:15 08/29/16 18:14 08/03/16 16:17 15 ML Amlodipine Besylate (Norvasc Tab) 3.75 mg DAILY PEG 07/31/16 09:00 08/30/16 08:59 08/09/16 09:13 3.75 MG Buspirone HCl (BusPAR TAB) 7.5 mg BID PEG 07/30/16 21:00 08/29/16 20:59 08/09/16 08:34 7.5 MG Clopidogrel Bisulfate (plAVix TAB) 75 mg DAILY PEG 07/31/16 09:00 08/30/16 08:59 08/09/16 09:14 75 MG Fluconazole (Diflucan Susp) 100 mg QPM PEG 07/30/16 21:00 08/09/16 20:59 08/08/16 23:50 100 MG Gabapentin (Neurontin) 100 mg QAM PEG 07/31/16 09:00 08/30/16 08:59 08/09/16 08:41 100 MG Gabapentin (Neurontin) 200 mg 1600 PEG 07/30/16 16:00 08/29/16 15:59 08/08/16 16:56 200 MG Pentosan Polysulfate Sodium (Elmiron) 100 mg BID PEG 07/30/16 21:00 08/29/16 20:59 08/09/16 08:35 100 MG Gabapentin (Neurontin) 600 mg HS PEG 07/30/16 21:00 08/29/16 20:59 08/08/16 22:21 600 MG Lorazepam (Ativan Tab) 0.5 mg DAILY PRN PEG 07/30/16 16:45 08/29/16 16:44 Magnesium Hydroxide (Milk Of Magnesia Susp) 30 ml Q12H PRN PEG 07/30/16 16:45 08/29/16 16:44 Future Hold Lamotrigine (Lamictal Tab) 50 mg BID PEG 08/07/16 09:00 09/06/16 08:59 08/09/16 08:35 50 MG Non-Formulary Medication (Non-Formulary Patient'S Own Med) 1 ea TID PEG 07/30/16 21:00 08/29/16 20:59 08/09/16 08:39 1 EA Sterile Water (Tube Feeding Water Flush) 1 ea TID PEG 07/30/16 21:00 08/29/16 20:59 08/09/16 08:37 1 EA Lifitegrast (Xiidra 5% Oph Soln) 1 drop BID OP 07/30/16 21:00 08/29/16 20:59 08/09/16 08:34 1 DROP Heparin Sodium (Porcine) (Heparin 100 Unit/ml 5ml Flush) 5 ml PRN PRN IV 07/30/16 23:45 08/29/16 23:44 Ipratropium [place] (Atrovent Hfa Inhaler) 4 puffs QIDR INH 07/31/16 16:00 08/30/16 15:59 08/09/16 07:45 4 PUFFS Albuterol (Ventolin Hfa Inhaler) 4 puffs QIDR INH 07/31/16 16:00 08/30/16 15:59 08/09/16 07:45 4 PUFFS Escitalopram Oxalate 20 mg 20 mg QAM PEG 08/01/16 09:00 08/31/16 08:59 08/09/16 09:15 20 MG Caspofungin/ Sodium Chloride (Cancidas Inj/ Nss 250ml) 260 ml @ 250 mls/hr DAILY@0900 IV 08/02/16 09:00 08/12/16 08:59 08/09/16 08:31 250 MLS/HR Non-Formulary Medication (Non-Formulary Patient'S Own Med) 1 ea HS OP 08/02/16 21:00 09/01/16 20:59 08/08/16 22:25 1 EA Lactobacillus Acidophilus (Floranex Tab) 4 tab TID@0900,1400,2100 PEG 08/02/16 14:00 09/01/16 13:59 08/09/16 09:14 4 TAB Enteral Nutritional Formula (Prosource No Carb) 30 ml TID@0900,1400,2100 PEG 08/02/16 14:00 09/01/16 13:59 Future Hold 08/03/16 07:37 30 ML Sterile Water (Tube Feeding Water Flush) 1 ea TID@0900,1400,2100 PEG 08/02/16 14:00 09/01/16 13:59 08/09/16 08:38 1 EA Insulin Aspart (novoLOG ASPART) tube feeds = 54 g of C... TID@0845,1345,2045 SC 08/02/16 13:45 Future hold 08/06/16 21:04 7 UNITS Loperamide HCl 2 mg 2 mg DAILY PRN PO 08/04/16 09:00 09/03/16 08:59 08/05/16 09:05 2 MG Promethazine HCl/ Sodium Chloride (Phenergan Inj/ Nss 50ml) 50.5 ml @ 204 mls/hr Q6H PRN IV 08/04/16 10:45 09/03/16 10:44 08/06/16 22:39 204 MLS/HR Trimethoprim/ Sulfamethoxazole (Septra Susp) 20 ml Q12 PEG 08/04/16 14:15 08/11/16 14:14 08/09/16 08:36 20 ML Miscellaneous Information (Consult Glycemic Management Pharmacy) 1 ea UD PRN N/A 08/06/16 09:00 09/05/16 08:59 Polyethylene (Miralax Powder Packet) 17 gm BID PEG 08/06/16 09:00 09/05/16 08:59 Future Hold 08/07/16 21:53 17 GM Baclofen (Lioresal Tab) 10 mg Q3H PRN PO 08/07/16 09:00 09/06/16 08:59 08/08/16 18:43 10 MG Loperamide HCl (Imodium A-D Liquid) 2 mg QD@08 PRN PO 08/07/16 11:00 09/06/16 10:59 08/08/16 05:53 2 MG Insulin Glargine (Lantus Solostar Pen) 12 unit HS SC 08/08/16 21:00 09/07/16 20:59 08/08/16 22:28 12 UNIT Levetiracetam (Keppra Soln) 500 mg BID PO 08/09/16 10:00 09/08/16 09:59 08/09/16 09:33 500 MG I & O: 24-Hour Column 08/09/16 08:00 Intake Total 1866 ml Output Total 2525 ml Balance -659 ml Vital Signs: Date Time Temp Pulse Resp B/P Pulse Ox O2 Delivery O2 Flow Rate FiO2 08/09/16 10:00 71 18 142/70 97 Mechanical Ventilator 28 08/09/16 08:00 37.0 62 21 127/72 95 Mechanical Ventilator 28 08/09/16 06:00 61 17 141/76 97 Mechanical Ventilator 28 08/09/16 05:00 65 17 149/76 96 Mechanical Ventilator 28 08/09/16 04:00 37.0 69 17 141/76 94 Mechanical Ventilator 28 08/09/16 04:00 28 08/09/16 04:00 Mechanical Ventilator 2.0 28 08/09/16 02:00 65 22 156/87 92 Mechanical Ventilator 28 08/09/16 01:59 68 22 92 Mechanical Ventilator 28 08/09/16 01:00 69 17 155/81 94 Mechanical Ventilator 28 08/09/16 00:00 Mechanical Ventilator 2.0 28 08/09/16 00:00 37.1 68 17 170/91 96 Mechanical Ventilator 28 08/09/16 00:00 28 08/08/16 22:00 72 18 156/84 96 Mechanical Ventilator 28 08/08/16 20:00 37.0 71 20 154/74 97 Mechanical Ventilator 28 08/08/16 20:00 Mechanical Ventilator 2.0 28 08/08/16 20:00 28 08/08/16 18:00 67 18 163/83 94 Mechanical Ventilator 28 08/08/16 16:00 28 08/08/16 16:00 37.0 79 20 154/79 95 Mechanical Ventilator 28 08/08/16 16:00 Mechanical Ventilator 2.0 28 08/08/16 14:00 68 18 155/85 93 08/08/16 13:01 70 27 156/81 99 08/08/16 13:00 69 21 99 08/08/16 12:00 69 18 138/71 96 08/08/16 11:30 28 08/08/16 11:30 37.2 68 22 132/64 98 Mechanical Ventilator 28 08/08/16 11:30 Mechanical Ventilator 2.0 28 08/08/16 11:01 73 24 153/67 95 08/08/16 11:00 71 14 95 Laboratory Results: Last 24 Hours Test 08/08/16 14:03 08/08/16 19:33 08/08/16 22:45 08/08/16 23:30 Bedside Glucose 147 mg/dl 120 mg/dl 250 mg/dl Sodium Level 135 mmol/L Potassium Level 4.3 mmol/L Chloride Level 100 mmol/L Carbon Dioxide Level 29 mmol/L Anion Gap 6.0 mmol/L Blood Urea Nitrogen 19 mg/dl Creatinine 0.69 mg/dl Est Creatinine Clear Calc Drug Dose 64.0 ml/min Estimated GFR () 102.9 Estimated GFR (Non- 88.8 BUN/Creatinine Ratio 28.0 Random Glucose 187 mg/dl Calcium Level 8.6 mg/dl Phosphorus Level 3.4 mg/dl Magnesium Level 2.0 mg/dl Test 08/09/16 05:44 White Blood Count 7.23 K/uL Red Blood Count 3.62 M/uL Hemoglobin 10.3 g/dL Hematocrit 34.3 % Mean Corpuscular Volume 94.8 fL Mean Corpuscular Hemoglobin 28.5 pg Mean Corpuscular Hemoglobin Concent 30.0 g/dl RDW Standard Deviation 65.8 fL RDW Coefficient of Variation 18.9 % Platelet Count 253 K/uL Mean Platelet Volume 9.6 fL Venous Blood pH 7.40 Venous Blood Partial Pressure CO2 47 mmHg Venous Blood Partial Pressure O2 40 mmHg Venous Blood HCO3 28 mmol/L Venous Blood Oxygen Saturation 70.0 % Venous Blood Base Excess 2.8 mmol/L Sodium Level 136 mmol/L Potassium Level 4.4 mmol/L Chloride Level 103 mmol/L Carbon Dioxide Level 31 mmol/L Anion Gap 2.0 mmol/L Blood Urea Nitrogen 18 mg/dl Creatinine 0.54 mg/dl Est Creatinine Clear Calc Drug Dose 81.7 ml/min Estimated GFR () 111.6 Estimated GFR (Non- 96.3 BUN/Creatinine Ratio 34.0 Random Glucose 116 mg/dl Calcium Level 8.6 mg/dl Phosphorus Level 3.8 mg/dl Magnesium Level 2.1 mg/dl Problem Qualifiers (1) Urinary tract infection: Urinary tract infection type: catheter-associated UTI Indwelling urinary catheter type: indwelling urethral catheter Encounter type: initial encounter Qualified Codes: T83.511A - Infection and inflammatory reaction due to indwelling urethral catheter, initial encounter; N39.0 - Urinary tract infection, site not specified
--- NOTE | 2016-08-09 12:52 | Pharmacy Progress Note ---
Glycemic Control: Progress Nt Date of Service Aug 09, 2016. Scope Glycemic Pharmacist consulted by Dr Coleman on 08/06 for glycemic control and to write orders per [facility] inpatient glycemic control protocol. Objective Accuchecks BSG (last 24hrs): Test 08/08/16 14:03 08/08/16 19:33 08/08/16 22:45 08/08/16 23:30 Bedside Glucose 147 mg/dl (70-90) 120 mg/dl (70-90) 250 mg/dl (70-90) Random Glucose 187 mg/dl (70-99) Test 08/09/16 05:44 08/09/16 09:11 Random Glucose 116 mg/dl (70-99) Bedside Glucose 75 mg/dl (70-90) Laboratory Data (last 24hrs) Test 08/08/16 23:30 08/09/16 05:44 Anion Gap 6.0 mmol/L 2.0 mmol/L BUN/Creatinine Ratio 28.0 34.0 Blood Urea Nitrogen 19 mg/dl 18 mg/dl Creatinine 0.69 mg/dl 0.54 mg/dl Potassium Level 4.3 mmol/L 4.4 mmol/L Sodium Level 135 mmol/L 136 mmol/L White Blood Count 7.23 K/uL Recent Pertinent Medications Outpatient Anti-diabetic Regimen: * Lantus 13 units Q HS * A1c = 6.0 % 05/29/16 The patient is currently receiving: * Basal insulin: Lantus 12 units every 24 hours - dosed at bedtime * Correctional Insulin: Novolog Correction per scale TID w/ Nutren boluses Goal Range: Low 120 mg/dL - High 160 mg/dL Correction Factor: 25 mg/dL/unit * Prandial insulin: None * Oral Agents: None Risk Factors for Insulin Resistance: * Infection: caspofungin + fluconazole + Invanz + Bactrim susp * Diet: Nutren 2.0 267mL bolus feed TID (54gm CHO per feeding) * Mechanical Ventilation: yes (chronic) Assessment & Plan ASSESSMENT: * ADA & AACE recommend a goal blood sugar range 140-180 mg/dl for the majority of critically ill & non-critically ill patients. However, more stringent targets may be selected in individual cases. 08/07/16 * Fasting BSG 66-122 this AM; this is following a Lantus dose reduction yesterday to 18 units Q HS - will reduce dose even further * Patient's insulin sensitivity appears to be improving; she has not received Novolog boluses with the Nutren today yet BSGs are not climbing - will reduce CF and CR doses as well 08/08/16 * No episodes of hypoglycemia in last 24 hours, but fasting AM BSG did drop to 83-85 this AM. Will only decrease the Lantus dose by 1 unit further as we have been scaling the dose back x 2 days in a row now * She had refused some of her bolus feeds two days back - this is no longer being reported. * Patient has been receiving the bolus feeds without carb coverage and BSGs are well controlled - will remove the carb ratio at this time and follow 08/09/16 * Fasting BSG continues to drop despite decrease in Lantus. Will decrease further * BSG elevated to 250 mg/mL at HS yesterday. Novolog scheduled TID w tube feed boluses (none scheduled at that time). Despite moderate hyperglycemia, will not add HS Novolog check as insulin provided at HS now may further exacerbate AM low BSG's. No change to Novolog needed at this time PLAN FOR INPATIENT GLYCEMIC CONTROL: * Decrease basal insulin with LANTUS 10 units SQ HS (hold for BSG < 110 mg/dL) * Continue Correctional Insulin with NOVOLOG per scale ACHS or Q6hrs while NPO * Goal Range: Low 120 mg/dL - High 160 mg/dL * Correction Factor: 25 mg/dL/unit * No nutritional / Prandial insulin * Please note that the plan above was derived based on current level of insulin resistance and hospital stress. These recommendations are appropriate for inpatient admission only. Plan of care upon discharge will need to be reassessed to avoid potential outpatient hypo/hyperglycemia. Thank you.
--- NOTE | 2016-08-09 13:31 | Pulmonology Progress Note ---
Pulmonary Progress Note Date of Service Aug 09, 2016. Attending Dr. Luther Subjective Patient is sleepy but arousalable. Objective Patient notable anxious secondary to possible epileptic activity last night x2 VS: Stable on vent support Trilogy:14/RA/TV:500cc RESP: rhonchi in the LLL posterior subsegment CARD: S1S2 distant HS but RRR ABD: dissented but no rebound noted BAL (08/02/16) Acinetobacter Lwoffi CXR (08/05/2016) compared to 08/02/2016 Increased aeration but continued LLL opacification Medications: 1. Trimethoprine/Sulfamethoxazole: 20ml BID 2. Caspofungin 260mL QD 3. Atrovent Neb 4. Albulerol HFa 5. Ertapenum 1gm QD 6. Diflucan 100mg QD Assessment & Plan 71y/o chronically vent depend female admitted with acute on chronic respiratory failure: 1) ID: New growth from BAL 08/02/16 Acinetobacter Lwoffi, sensitive to Bactrim. Patient also with complex UTI hx and previous Stenotrophomonas pna. currently followed by ID 2) Ventilator: Continue on current setting as patient is noted to have normal peak airway pressures when placed on hospital vent. 3)Epilepsy: patient arousable and no signs of epileptic activity at this time but 2 witnessed seizures last night and placed on Keppra and Lamictal via neurology. Data Medications: Current Inpatient Medications Medications (Trade) Dose Ordered Sig/Tasha Route Start Time Stop Time Status Last Admin Dose Admin Dipyridamole/ Aspirin (Aggrenox 200MG/ 25MG Cap) 1 cap BID PO 07/30/16 09:00 08/29/16 08:59 08/09/16 08:38 1 CAP Bisacodyl (Dulcolax Supp) 10 mg SuMoWeFr@2100 NV 07/30/16 21:00 08/29/16 20:59 Future Hold 07/30/16 21:37 10 MG Phenazopyridine HCl (Pyridium Tab) 200 mg BID PRN PO 07/30/16 02:15 08/29/16 02:14 07/30/16 10:40 200 MG Heparin Sodium (Porcine) (Heparin Sq 5000 Unit/0.5ml) 5,000 unit Q8 SQ 07/30/16 06:00 08/29/16 05:59 08/09/16 06:32 5,000 UNIT Ondansetron HCl (Zofran Inj) 4 mg Q6H PRN IV 07/30/16 02:15 08/29/16 02:14 08/07/16 22:43 4 MG Miscellaneous (Iv Fluids Completed) 1 ea PRN PRN N/A 07/30/16 03:15 07/30/17 03:14 Glucose (Glucose 40% Gel) 15-30 GRAMS 15 GRAMS... UD PRN PO 07/30/16 03:30 08/29/16 03:29 Glucose (Glucose Chew Tab) 4-8 Tablets 4 Tabl... UD PRN PO 07/30/16 03:30 08/29/16 03:29 Dextrose (Dextrose 50% 50ML Syringe) 25-50ML OF 50% DW IV FOR... UD PRN IV 07/30/16 03:30 08/29/16 03:29 Glucagon 1 mg 1 mg UD PRN SQ 07/30/16 03:30 08/29/16 03:29 Ertapenem/Sodium Chloride (Invanz Iv/Nss Ad-Van 50ml) 50 ml @ 100 mls/hr Q24H IV 07/31/16 08:00 08/10/16 07:59 08/09/16 08:30 100 MLS/HR Bisacodyl (Dulcolax Supp) 10 mg TuTh@0530 NV 07/31/16 05:30 08/30/16 05:29 Future Hold 07/31/16 05:59 10 MG Lidocaine (Lidoderm Patch 5%) 2 patch DAILY@2100 TD 07/30/16 21:00 08/29/16 20:59 08/08/16 22:26 1 PATCH Miscellaneous (Remove Lidoderm Patch) 1 ea DAILY@0900 N/A 07/31/16 09:00 08/30/16 08:59 08/09/16 09:30 1 EA Acetaminophen (Tylenol Soln) 650 mg Q4H PRN PEG 07/30/16 18:15 08/29/16 18:14 08/08/16 20:35 650 MG Allopurinol (Zyloprim Tab) 100 mg DAILY PEG 07/31/16 09:00 08/30/16 08:59 08/09/16 09:14 100 MG Al Hydrox/Mg Hydrox/Simethicone (Maalox Max Susp) 15 ml Q4H PRN PEG 07/30/16 18:15 08/29/16 18:14 08/03/16 16:17 15 ML Amlodipine Besylate (Norvasc Tab) 3.75 mg DAILY PEG 07/31/16 09:00 08/30/16 08:59 08/09/16 09:13 3.75 MG Buspirone HCl (BusPAR TAB) 7.5 mg BID PEG 07/30/16 21:00 08/29/16 20:59 08/09/16 08:34 7.5 MG Clopidogrel Bisulfate (plAVix TAB) 75 mg DAILY PEG 07/31/16 09:00 08/30/16 08:59 08/09/16 09:14 75 MG Fluconazole (Diflucan Susp) 100 mg QPM PEG 07/30/16 21:00 08/09/16 20:59 08/08/16 23:50 100 MG Gabapentin (Neurontin) 100 mg QAM PEG 07/31/16 09:00 08/30/16 08:59 08/09/16 08:41 100 MG Gabapentin (Neurontin) 200 mg 1600 PEG 07/30/16 16:00 08/29/16 15:59 08/08/16 16:56 200 MG Pentosan Polysulfate Sodium (Elmiron) 100 mg BID PEG 07/30/16 21:00 08/29/16 20:59 08/09/16 08:35 100 MG Gabapentin (Neurontin) 600 mg HS PEG 07/30/16 21:00 08/29/16 20:59 08/08/16 22:21 600 MG Lorazepam (Ativan Tab) 0.5 mg DAILY PRN PEG 07/30/16 16:45 08/29/16 16:44 Magnesium Hydroxide (Milk Of Magnesia Susp) 30 ml Q12H PRN PEG 07/30/16 16:45 08/29/16 16:44 Future Hold Lamotrigine (Lamictal Tab) 50 mg BID PEG 08/07/16 09:00 09/06/16 08:59 08/09/16 08:35 50 MG Non-Formulary Medication (Non-Formulary Patient'S Own Med) 1 ea TID PEG 07/30/16 21:00 08/29/16 20:59 08/09/16 08:39 1 EA Sterile Water (Tube Feeding Water Flush) 1 ea TID PEG 07/30/16 21:00 08/29/16 20:59 08/09/16 08:37 1 EA Lifitegrast (Xiidra 5% Oph Soln) 1 drop BID OP 07/30/16 21:00 08/29/16 20:59 08/09/16 08:34 1 DROP Heparin Sodium (Porcine) (Heparin 100 Unit/ml 5ml Flush) 5 ml PRN PRN IV 07/30/16 23:45 08/29/16 23:44 Ipratropium [place] (Atrovent Hfa Inhaler) 4 puffs QIDR INH 07/31/16 16:00 08/30/16 15:59 08/09/16 11:44 4 PUFFS Albuterol (Ventolin Hfa Inhaler) 4 puffs QIDR INH 07/31/16 16:00 08/30/16 15:59 08/09/16 11:44 4 PUFFS Escitalopram Oxalate 20 mg 20 mg QAM PEG 08/01/16 09:00 08/31/16 08:59 08/09/16 09:15 20 MG Caspofungin/ Sodium Chloride (Cancidas Inj/ Nss 250ml) 260 ml @ 250 mls/hr DAILY@0900 IV 08/02/16 09:00 08/12/16 08:59 08/09/16 08:31 250 MLS/HR Non-Formulary Medication (Non-Formulary Patient'S Own Med) 1 ea HS OP 08/02/16 21:00 09/01/16 20:59 08/08/16 22:25 1 EA Lactobacillus Acidophilus (Floranex Tab) 4 tab TID@0900,1400,2100 PEG 08/02/16 14:00 09/01/16 13:59 08/09/16 09:14 4 TAB Enteral Nutritional Formula (Prosource No Carb) 30 ml TID@0900,1400,2100 PEG 08/02/16 14:00 09/01/16 13:59 Future Hold 08/03/16 07:37 30 ML Sterile Water (Tube Feeding Water Flush) 1 ea TID@0900,1400,2100 PEG 08/02/16 14:00 09/01/16 13:59 08/09/16 08:38 1 EA Insulin Aspart (novoLOG ASPART) tube feeds = 54 g of C... TID@0845,1345,2045 SC 08/02/16 13:45 Future hold 08/06/16 21:04 7 UNITS Loperamide HCl 2 mg 2 mg DAILY PRN PO 08/04/16 09:00 09/03/16 08:59 08/05/16 09:05 2 MG Promethazine HCl/ Sodium Chloride (Phenergan Inj/ Nss 50ml) 50.5 ml @ 204 mls/hr Q6H PRN IV 08/04/16 10:45 09/03/16 10:44 08/06/16 22:39 204 MLS/HR Trimethoprim/ Sulfamethoxazole (Septra Susp) 20 ml Q12 PEG 08/04/16 14:15 08/11/16 14:14 08/09/16 08:36 20 ML Miscellaneous Information (Consult Glycemic Management Pharmacy) 1 ea UD PRN N/A 08/06/16 09:00 09/05/16 08:59 Polyethylene (Miralax Powder Packet) 17 gm BID PEG 08/06/16 09:00 09/05/16 08:59 Future Hold 08/07/16 21:53 17 GM Baclofen (Lioresal Tab) 10 mg Q3H PRN PO 08/07/16 09:00 09/06/16 08:59 08/08/16 18:43 10 MG Loperamide HCl (Imodium A-D Liquid) 2 mg QD@08 PRN PO 08/07/16 11:00 09/06/16 10:59 08/08/16 05:53 2 MG Levetiracetam (Keppra Soln) 500 mg BID PO 08/09/16 10:00 09/08/16 09:59 08/09/16 09:33 500 MG Insulin Glargine (Lantus Solostar Pen) HS SC 08/09/16 21:00 09/08/16 20:59 I & O: 24-Hour Column 08/09/16 08:00 Intake Total 1866 ml Output Total 2525 ml Balance -659 ml Vital Signs: Date Time Temp Pulse Resp B/P Pulse Ox O2 Delivery O2 Flow Rate FiO2 08/09/16 10:00 71 18 142/70 97 Mechanical Ventilator 28 08/09/16 08:00 37.0 62 21 127/72 95 Mechanical Ventilator 28 08/09/16 08:00 Mechanical Ventilator 28 08/09/16 08:00 Mechanical Ventilator 28 08/09/16 08:00 28 08/09/16 06:00 61 17 141/76 97 Mechanical Ventilator 28 08/09/16 05:00 65 17 149/76 96 Mechanical Ventilator 28 08/09/16 04:00 37.0 69 17 141/76 94 Mechanical Ventilator 28 08/09/16 04:00 28 08/09/16 04:00 Mechanical Ventilator 2.0 28 08/09/16 02:00 65 22 156/87 92 Mechanical Ventilator 28 08/09/16 01:59 68 22 92 Mechanical Ventilator 28 08/09/16 01:00 69 17 155/81 94 Mechanical Ventilator 28 08/09/16 00:00 Mechanical Ventilator 2.0 28 08/09/16 00:00 37.1 68 17 170/91 96 Mechanical Ventilator 28 08/09/16 00:00 28 08/08/16 22:00 72 18 156/84 96 Mechanical Ventilator 28 08/08/16 20:00 37.0 71 20 154/74 97 Mechanical Ventilator 28 08/08/16 20:00 Mechanical Ventilator 2.0 28 08/08/16 20:00 28 08/08/16 18:00 67 18 163/83 94 Mechanical Ventilator 28 08/08/16 16:00 28 08/08/16 16:00 37.0 79 20 154/79 95 Mechanical Ventilator 28 08/08/16 16:00 Mechanical Ventilator 2.0 28 08/08/16 14:00 68 18 155/85 93 Laboratory Results: Last 24 Hours Test 08/08/16 14:03 08/08/16 19:33 08/08/16 22:45 08/08/16 23:30 Bedside Glucose 147 mg/dl 120 mg/dl 250 mg/dl Sodium Level 135 mmol/L Potassium Level 4.3 mmol/L Chloride Level 100 mmol/L Carbon Dioxide Level 29 mmol/L Anion Gap 6.0 mmol/L Blood Urea Nitrogen 19 mg/dl Creatinine 0.69 mg/dl Est Creatinine Clear Calc Drug Dose 64.0 ml/min Estimated GFR () 102.9 Estimated GFR (Non- 88.8 BUN/Creatinine Ratio 28.0 Random Glucose 187 mg/dl Calcium Level 8.6 mg/dl Phosphorus Level 3.4 mg/dl Magnesium Level 2.0 mg/dl Test 08/09/16 05:44 08/09/16 09:11 White Blood Count 7.23 K/uL Red Blood Count 3.62 M/uL Hemoglobin 10.3 g/dL Hematocrit 34.3 % Mean Corpuscular Volume 94.8 fL Mean Corpuscular Hemoglobin 28.5 pg Mean Corpuscular Hemoglobin Concent 30.0 g/dl RDW Standard Deviation 65.8 fL RDW Coefficient of Variation 18.9 % Platelet Count 253 K/uL Mean Platelet Volume 9.6 fL Venous Blood pH 7.40 Venous Blood Partial Pressure CO2 47 mmHg Venous Blood Partial Pressure O2 40 mmHg Venous Blood HCO3 28 mmol/L Venous Blood Oxygen Saturation 70.0 % Venous Blood Base Excess 2.8 mmol/L Sodium Level 136 mmol/L Potassium Level 4.4 mmol/L Chloride Level 103 mmol/L Carbon Dioxide Level 31 mmol/L Anion Gap 2.0 mmol/L Blood Urea Nitrogen 18 mg/dl Creatinine 0.54 mg/dl Est Creatinine Clear Calc Drug Dose 81.7 ml/min Estimated GFR () 111.6 Estimated GFR (Non- 96.3 BUN/Creatinine Ratio 34.0 Random Glucose 116 mg/dl Calcium Level 8.6 mg/dl Phosphorus Level 3.8 mg/dl Magnesium Level 2.1 mg/dl Bedside Glucose 75 mg/dl
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
[2016-08-09] MEDS: [UNRECOGNIZED DRUG - OTHER] OP SCH (20:18)
[2016-08-09] MEDS: BACLOFEN 10 MG TAB PO PRN (20:30)
[2016-08-09] MEDS: LIDODERM (LIDOCAINE) PATCH 5% TD SCH (20:33)
[2016-08-09] MEDS ORDERED: INSULIN GLARGINE SOLOSTAR 100 UNITS/ML 3 ML PEN SC SCH (21:00)
[2016-08-10] VITALS (11 sets, daily range): BP systolic 124–148; BP diastolic 49–78; PULSE 59–68; TEMP 36.7–37; O2SAT 96–99
[2016-08-10] MEDS: ACETAMINOPHEN SOLN 650MG/20.3 ML UDC PEG PRN ×2 (03:33→09:37)
[2016-08-10 06:10] LABS: VEN BLD GAS O2 SATURATION 72.6 %; VEN BLOOD GAS BASE EXCESS 2.6 mmol/L
[2016-08-10] MEDS: HEPARIN SOD 5000 UNIT/0.5 ML CARP SQ SCH ×2 (06:14→14:29)
[2016-08-10 06:24] LABS: HEMATOCRIT 33.3 % (37-47); MEAN CELL VOLUME 94.6 fL (80-100); MEAN CORPUSCULAR HEMOGLOBIN 29.3 pg (25-34); MEAN CORPUSCULAR HGB CONC 30.9 g/dl (32-36); MEAN PLATELET VOLUME 9.7 fL (7.4-10.4); PLATELET COUNT 275 K/uL (130-400); RED BLOOD COUNT 3.52 M/uL (4.2-5.4); WHITE BLOOD COUNT 7.54 K/uL (4.8-10.8)
[2016-08-10 06:49] LABS: BUN/CREATININE RATIO 35.3 (10-20); CALCIUM 8.6 mg/dl (8.5-10.1); CREATININE 0.59 mg/dl (0.60-1.20); MAGNESIUM 2.2 mg/dl (1.8-2.4); POTASSIUM 4.8 mmol/L (3.5-5.1)
[2016-08-10 06:53] LABS: PHOSPHORUS 4.2 mg/dl (2.5-4.9)
--- NOTE | 2016-08-10 07:56 | DIAGNOSTIC IMAGING REPORT ---
CHEST ONE VIEW PORTABLE HISTORY: Tracheostomy. Pneumonia. COMPARISON: Chest 08/09/2016. FINDINGS: Support lines and tubes remain unchanged in position. No pneumothorax. No pleural effusions. The heart is mildly enlarged. Mild diffuse interstitial thickening and left basilar density persists. IMPRESSION: No change from the prior study. Mild diffuse interstitial thickening and a left basilar opacity are again noted. Electronically signed by: Iban Hoffman M.D. 08/10/2016 7:54 AM Dictated Date/Time: 08/10/2016 7:53 AM
[2016-08-10] MEDS: ALBUTEROL HFA 8 GM INHALER INH SCH ×2 (08:00→11:50)
[2016-08-10] MEDS: IPRATROPIUM BROMIDE HFA INHALER INH SCH ×2 (08:00→11:50)
[2016-08-10] MEDS: LACTOBACILLUS ACIDOPHILUS (FLORANEX) TAB PEG SCH ×2 (08:10→14:28)
[2016-08-10] MEDS: LEVETIRACETAM SOLN 500 MG/5 ML UDP PO SCH (08:10)
[2016-08-10] MEDS: CLOPIDOGREL BISULFATE 75 MG TAB PEG SCH (08:10)
[2016-08-10] MEDS: AMLODIPINE BESYLATE 5 MG TAB PEG SCH (08:11)
[2016-08-10] MEDS: ALLOPURINOL 100 MG TAB PEG SCH (08:11)
[2016-08-10] MEDS: ESCITALOPRAM OXALATE ORAL SOLN 5 MG/5 ML PEG SCH (08:12)
[2016-08-10] MEDS: SULFA/TRIMETH SUSP 800/160MG 20ML UDC PEG SCH (08:12)
[2016-08-10] MEDS: DIPYRIDAMOLE/ASPIRIN CAP PO SCH (08:13)
[2016-08-10] MEDS: PENTOSAN POLYSULFATE SODIUM 100 MG CAP PEG SCH (08:13)
[2016-08-10] MEDS: LIFITEGRAST 5% OP SCH (08:14)
[2016-08-10] MEDS: BusPIRone 15 MG TAB PEG SCH (08:14)
[2016-08-10] MEDS: [UNRECOGNIZED DRUG - SUPPLY] OP SCH (08:14)
[2016-08-10] MEDS: PROPYLENE GLYCOL 0.6% (OPHTH) 15 DROP/ML 10ML BTL OPB SCH (08:15)
[2016-08-10] MEDS: CASPOFUNGIN INJ 50 MG in SODIUM CHLORIDE 0.9% 250ML 250 ML IV SCH (08:16)
[2016-08-10] MEDS: ENTERAL NUTRITION FORMULA PEG SCH ×2 (08:16→14:28)
[2016-08-10] MEDS: TUBE FEEDING WATER FLUSH PEG SCH ×4 (08:16→14:28)
[2016-08-10] MEDS: INSULIN ASPART 100 UNITS/ML 3 ML PEN SC SCH ×2 (08:45→13:45)
--- NOTE | 2016-08-10 08:53 | Neurology Progress Notes ---
Neurology Progress Note Date of Service Aug 10, 2016. Subjective Patient is less sedated. Almost 100% back to baseline. Has some pain which is chronic. Caregivers did not report any over sedation or side effects to [place]. Seems a little confused time but may be secondary to being in ICU. No seizure activity. Objective Date Time Temp Pulse Resp B/P Pulse Ox O2 Delivery O2 Flow Rate FiO2 08/10/16 06:00 36.8 62 19 148/72 99 Mechanical Ventilator 28 08/10/16 04:00 Mechanical Ventilator 08/10/16 04:00 68 21 125/49 98 Mechanical Ventilator 28 08/10/16 04:00 28 08/10/16 03:00 63 18 124/55 98 Mechanical Ventilator 28 08/10/16 02:00 64 14 99 Mechanical Ventilator 08/10/16 01:00 62 20 143/73 98 08/10/16 00:00 28 08/10/16 00:00 Mechanical Ventilator 28 08/10/16 00:00 36.7 60 14 126/78 98 Mechanical Ventilator 28 08/09/16 22:01 67 22 148/68 97 Mechanical Ventilator 28 08/09/16 22:00 68 26 98 08/09/16 21:00 70 21 173/84 100 08/09/16 20:15 Mechanical Ventilator 28 08/09/16 20:15 28 08/09/16 20:01 36.6 60 19 151/69 97 Mechanical Ventilator 08/09/16 20:00 61 18 99 08/09/16 19:01 62 14 144/65 99 08/09/16 19:00 63 16 99 08/09/16 18:01 64 25 144/65 97 08/09/16 18:00 66 24 98 08/09/16 17:01 67 19 140/60 93 08/09/16 17:00 68 21 92 08/09/16 16:01 37.0 72 18 137/81 100 Mechanical Ventilator 28 08/09/16 16:00 28 08/09/16 16:00 Mechanical Ventilator 28 08/09/16 16:00 73 19 100 08/09/16 15:01 72 19 136/62 94 08/09/16 15:00 72 18 93 08/09/16 14:00 65 13 124/61 92 Mechanical Ventilator 28 08/09/16 12:00 Mechanical Ventilator 28 08/09/16 12:00 37.1 68 17 153/75 97 Mechanical Ventilator 28 08/09/16 12:00 28 08/09/16 10:00 71 18 142/70 97 Mechanical Ventilator 28 Last 24 Hours Test 08/09/16 09:11 08/09/16 13:20 08/09/16 18:12 08/10/16 05:55 Bedside Glucose 75 mg/dl 157 mg/dl 113 mg/dl White Blood Count 7.54 K/uL Red Blood Count 3.52 M/uL Hemoglobin 10.3 g/dL Hematocrit 33.3 % Mean Corpuscular Volume 94.6 fL Mean Corpuscular Hemoglobin 29.3 pg Mean Corpuscular Hemoglobin Concent 30.9 g/dl RDW Standard Deviation 66.3 fL RDW Coefficient of Variation 19.0 % Platelet Count 275 K/uL Mean Platelet Volume 9.7 fL Venous Blood pH 7.45 Venous Blood Partial Pressure CO2 40 mmHg Venous Blood Partial Pressure O2 40 mmHg Venous Blood HCO3 27 mmol/L Venous Blood Oxygen Saturation 72.6 % Venous Blood Base Excess 2.6 mmol/L Sodium Level 136 mmol/L Potassium Level 4.8 mmol/L Chloride Level 104 mmol/L Carbon Dioxide Level 27 mmol/L Anion Gap 5.0 mmol/L Blood Urea Nitrogen 21 mg/dl Creatinine 0.59 mg/dl Est Creatinine Clear Calc Drug Dose 74.5 ml/min Estimated GFR () 108.4 Estimated GFR (Non- 93.5 BUN/Creatinine Ratio 35.3 Random Glucose 86 mg/dl Calcium Level 8.6 mg/dl Phosphorus Level 4.2 mg/dl Magnesium Level 2.2 mg/dl Test 08/10/16 08:27 Bedside Glucose 74 mg/dl Exam: Patient is lying in bed. Alert and responses in no acute distress. Able to follow commands and answer questions. Patient is quadriplegic and does not move any of her extremities. No facial asymmetry. Looks in all directions. Able to speak also difficult for me to understand due to low voice volume. Caregiver is able to understand her. Speech is at her baseline. Current Inpatient Medications Medications (Trade) Dose Ordered Sig/Tasha Route Start Time Stop Time Status Last Admin Dose Admin Dipyridamole/ Aspirin (Aggrenox 200MG/ 25MG Cap) 1 cap BID PO 07/30/16 09:00 08/29/16 08:59 08/10/16 08:13 1 CAP Bisacodyl (Dulcolax Supp) 10 mg SuMoWeFr@2100 OH 07/30/16 21:00 08/29/16 20:59 Future Hold 07/30/16 21:37 10 MG Phenazopyridine HCl (Pyridium Tab) 200 mg BID PRN PO 07/30/16 02:15 08/29/16 02:14 07/30/16 10:40 200 MG Heparin Sodium (Porcine) (Heparin Sq 5000 Unit/0.5ml) 5,000 unit Q8 SQ 07/30/16 06:00 08/29/16 05:59 08/10/16 06:14 5,000 UNIT Ondansetron HCl (Zofran Inj) 4 mg Q6H PRN IV 07/30/16 02:15 08/29/16 02:14 08/07/16 22:43 4 MG Miscellaneous (Iv Fluids Completed) 1 ea PRN PRN N/A 07/30/16 03:15 07/30/17 03:14 Glucose (Glucose 40% Gel) 15-30 GRAMS 15 GRAMS... UD PRN PO 07/30/16 03:30 08/29/16 03:29 Glucose (Glucose Chew Tab) 4-8 Tablets 4 Tabl... UD PRN PO 07/30/16 03:30 08/29/16 03:29 Dextrose (Dextrose 50% 50ML Syringe) 25-50ML OF 50% DW IV FOR... UD PRN IV 07/30/16 03:30 08/29/16 03:29 Glucagon (Glucagon Inj) 1 mg UD PRN SQ 07/30/16 03:30 08/29/16 03:29 Bisacodyl (Dulcolax Supp) 10 mg TuTh@0530 OH 07/31/16 05:30 08/30/16 05:29 Future Hold 07/31/16 05:59 10 MG Lidocaine (Lidoderm Patch 5%) 2 patch DAILY@2100 TD 07/30/16 21:00 08/29/16 20:59 08/09/16 20:33 2 PATCH Miscellaneous (Remove Lidoderm Patch) 1 ea DAILY@0900 N/A 07/31/16 09:00 08/30/16 08:59 08/10/16 08:15 1 EA Acetaminophen (Tylenol Soln) 650 mg Q4H PRN PEG 07/30/16 18:15 08/29/16 18:14 08/10/16 03:33 650 MG Allopurinol (Zyloprim Tab) 100 mg DAILY PEG 07/31/16 09:00 08/30/16 08:59 08/10/16 08:11 100 MG Al Hydrox/Mg Hydrox/Simethicone (Maalox Max Susp) 15 ml Q4H PRN PEG 07/30/16 18:15 08/29/16 18:14 08/03/16 16:17 15 ML Amlodipine Besylate (Norvasc Tab) 3.75 mg DAILY PEG 07/31/16 09:00 08/30/16 08:59 08/10/16 08:11 3.75 MG Buspirone HCl (BusPAR TAB) 7.5 mg BID PEG 07/30/16 21:00 08/29/16 20:59 08/10/16 08:14 7.5 MG Clopidogrel Bisulfate (plAVix TAB) 75 mg DAILY PEG 07/31/16 09:00 08/30/16 08:59 08/10/16 08:10 75 MG Gabapentin (Neurontin) 100 mg QAM PEG 07/31/16 09:00 08/30/16 08:59 08/09/16 15:55 100 MG Gabapentin (Neurontin) 200 mg 1600 PEG 07/30/16 16:00 08/29/16 15:59 08/09/16 15:56 200 MG Pentosan Polysulfate Sodium (Elmiron) 100 mg BID PEG 07/30/16 21:00 08/29/16 20:59 08/10/16 08:13 100 MG Gabapentin (Neurontin) 600 mg HS PEG 07/30/16 21:00 08/29/16 20:59 08/09/16 20:24 600 MG Lorazepam (Ativan Tab) 0.5 mg DAILY PRN PEG 07/30/16 16:45 08/29/16 16:44 Magnesium Hydroxide (Milk Of Magnesia Susp) 30 ml Q12H PRN PEG 07/30/16 16:45 08/29/16 16:44 Future Hold Lamotrigine (Lamictal Tab) 50 mg BID PEG 08/07/16 09:00 09/06/16 08:59 08/10/16 08:13 50 MG Non-Formulary Medication (Non-Formulary Patient'S Own Med) 1 ea TID PEG 07/30/16 21:00 08/29/16 20:59 08/10/16 08:16 1 EA Sterile Water (Tube Feeding Water Flush) 1 ea TID PEG 07/30/16 21:00 08/29/16 20:59 08/10/16 08:16 1 EA Lifitegrast (Xiidra 5% Oph Soln) 1 drop BID OP 07/30/16 21:00 08/29/16 20:59 08/10/16 08:14 1 DROP Heparin Sodium (Porcine) (Heparin 100 Unit/ml 5ml Flush) 5 ml PRN PRN IV 07/30/16 23:45 08/29/16 23:44 Ipratropium [place] (Atrovent Hfa Inhaler) 4 puffs QIDR INH 07/31/16 16:00 08/30/16 15:59 08/09/16 20:34 4 PUFFS Albuterol (Ventolin Hfa Inhaler) 4 puffs QIDR INH 07/31/16 16:00 08/30/16 15:59 08/09/16 20:34 4 PUFFS Escitalopram Oxalate 20 mg 20 mg QAM PEG 08/01/16 09:00 08/31/16 08:59 08/10/16 08:12 20 MG Caspofungin/ Sodium Chloride (Cancidas Inj/ Nss 250ml) 260 ml @ 250 mls/hr DAILY@0900 IV 08/02/16 09:00 08/12/16 08:59 08/10/16 08:16 250 MLS/HR Non-Formulary Medication (Non-Formulary Patient'S Own Med) 1 ea HS OP 08/02/16 21:00 09/01/16 20:59 08/09/16 20:18 1 EA Lactobacillus Acidophilus (Floranex Tab) 4 tab TID@0900,1400,2100 PEG 08/02/16 14:00 09/01/16 13:59 08/10/16 08:10 4 TAB Enteral Nutritional Formula (Prosource No Carb) 30 ml TID@0900,1400,2100 PEG 08/02/16 14:00 09/01/16 13:59 Future Hold 08/03/16 07:37 30 ML Sterile Water (Tube Feeding Water Flush) 1 ea TID@0900,1400,2100 PEG 08/02/16 14:00 09/01/16 13:59 08/10/16 08:16 1 EA Insulin Aspart (novoLOG ASPART) tube feeds = 54 g of C... TID@0845,1345,2045 SC 08/02/16 13:45 Future hold 08/06/16 21:04 7 UNITS Loperamide HCl 2 mg 2 mg DAILY PRN PO 08/04/16 09:00 09/03/16 08:59 08/05/16 09:05 2 MG Promethazine HCl/ Sodium Chloride (Phenergan Inj/ Nss 50ml) 50.5 ml @ 204 mls/hr Q6H PRN IV 08/04/16 10:45 09/03/16 10:44 08/06/16 22:39 204 MLS/HR Trimethoprim/ Sulfamethoxazole (Septra Susp) 20 ml Q12 PEG 08/04/16 14:15 08/11/16 14:14 08/10/16 08:12 20 ML Miscellaneous Information (Consult Glycemic Management Pharmacy) 1 ea UD PRN N/A 08/06/16 09:00 09/05/16 08:59 Polyethylene (Miralax Powder Packet) 17 gm BID PEG 08/06/16 09:00 09/05/16 08:59 Future Hold 08/07/16 21:53 17 GM Baclofen (Lioresal Tab) 10 mg Q3H PRN PO 08/07/16 09:00 09/06/16 08:59 08/09/16 20:30 10 MG Loperamide HCl (Imodium A-D Liquid) 2 mg QD@08 PRN PO 08/07/16 11:00 09/06/16 10:59 08/08/16 05:53 2 MG Levetiracetam (Keppra Soln) 500 mg BID PO 08/09/16 10:00 09/08/16 09:59 08/10/16 08:10 500 MG Insulin Glargine HS SC 08/09/16 21:00 09/08/16 20:59 08/09/16 20:28 10 UNIT Ertapenem/Sodium Chloride (Invanz Iv/Nss Ad-Van 50ml) 50 ml @ 100 mls/hr Q24H IV 08/10/16 09:00 08/20/16 08:59 Impression This is a 71-year-old quadriplegic with 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 Patient had breakthrough seizures 08/08. No breakthrough seizures since then. Patient is slowly being titrated up on Lamictal but is only at 50 mg twice a day which is likely subtherapeutic for treatment of epilepsy. No reported medication side effects to Lamictal or Keppra. No new neurological symptoms concerning for any new structural lesions. Plan Continue Lamictal titration as previously instructed in Dr. Eid's consultation note. Continue Keppra 500 mg liquid via PEG tube twice a day. Recommend follow-up in neurology clinic in one month. If they're unable to physically make it to the clinic, could reasonably do an update over the phone. Recommend getting blood work (CBC, complete metabolic panel, and Lamictal level ) 2 weeks after she gets to the dose of 100 mg twice a day. Discussed with caregiver that once Lamictal is titrated up to 100 mg twice a day , if no seizures, may consider discontinuation of Keppra. Instructed caregiver to call the clinic to update us if she has any breakthrough seizures when she goes home. Discussed that if she has only a single seizure and recovers appropriately, no need to go to the emergency room every time. If she has multiple seizures [id number] may need to go to the emergency room for evaluation and medication. Thank you for allowing me to participate in this patient's care. If there is any questions or concerns, feel free to call/page me.
[2016-08-10] MEDS ORDERED: ERTAPENEM IV 1 GM in SODIUM CHLOR 0.9% AD-VAN 50ML IV SCH (09:00)
[2016-08-10] MEDS ORDERED: SULF1SUS4 PEG (14:24)
[2016-08-10] MEDS ORDERED: LRS10 PO (14:24)
--- NOTE | 2016-08-10 14:26 | Discharge Instructions ---
Discharge Instructions Date of Service Aug 10, 2016. Admission Reason for Admission: Seizure Discharge Discharge Diagnosis / Problem: Seizures Discharge Goals Goal(s): Improve function Activity Recommendations Activity Limitations: as noted below . Current Hospital Diet Patient's current hospital diet: AHA Diet (Heart Healthy), Diabetes Type 2 Diet Discharge Diet Recommended Diet: AHA Diet (Heart Healthy), Diabetes Type 2 Diet Pending Studies Studies pending at discharge: no Laboratory Results Hemoglobin A1c Test 05/29/16 06:45 Range/Units Estimated Average Glucose 126 mg/dl Hemoglobin A1c 6.0 H 4.5-5.6 % Medical Emergencies . Who to Call and When: Medical Emergencies: If at any time you feel your situation is an emergency, please call 911 immediately. . Non-Emergent Contact Non-Emergency issues call your: Primary Care Provider Call Non-Emergent contact if: you have a fever . Past History Medical & Surgical History: (1) Quadriplegia (2) PNA (pneumonia) (3) Dependence on continuous positive airway pressure ventilation (4) Chronic obstructive lung disease . "Provider Documentation" section prepared by Gloria Giles. . VTE Core Measure Inpt VTE Proph given/why not?: Unfractionated heparin SQ
[2016-08-10] MEDS ORDERED: KPPSUDL500 PO (14:43)
[2016-08-10] MEDS ORDERED: [UNRECOGNIZED DRUG - CODE] PEG (14:43)
[2016-08-10] MEDS ORDERED: LCTX PEG (14:43)
[2016-08-10] MEDS ORDERED: GABA1SOL4 PEG ×2 (14:43)
[2016-08-10] MEDS ORDERED: LMC25 PEG (14:43)
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
[2016-08-14] MEDS ORDERED: INVI1 IV (15:05)
[2016-10-08] MEDS ORDERED: AGGRENOX PEG (17:02)
[2016-10-08] MEDS ORDERED: BACL10TA PEG (17:06)
[2016-10-08] MEDS ORDERED: LEVO-17 GT (17:29)
[2016-10-08] MEDS ORDERED: LEVE100S10 PEG (17:34)
[2016-10-08] MEDS ORDERED: LEXAPRO PEG (17:38)
[2016-10-08] MEDS ORDERED: MELA1CAP PO (17:59)
[2016-10-08] MEDS ORDERED: METH1INJ SQ (18:05)
[2016-10-10] MEDS ORDERED: LEVO1TAB35 PO (14:08)
[2016-11-08] MEDS ORDERED: LAMO200T38 PO (14:36)
[2016-11-22] MEDS ORDERED: FLUC100T4 PEG (14:51)
[2016-11-22] MEDS ORDERED: ALL100 PEG (14:51)
[2016-11-22] MEDS ORDERED: LEVO-17 PEG (14:51)
[2016-11-22] MEDS ORDERED: VNTHFA/IN INH (14:51)
[2016-11-22] MEDS ORDERED: AGG PEG (14:51)
[2016-11-22] MEDS ORDERED: LDDP5 TOP (14:51)
[2016-11-22] MEDS ORDERED: POLY335019 PEG (14:51)
[2016-11-22] MEDS ORDERED: LAMO150T32 PEG (14:51)
[2016-11-22] MEDS ORDERED: NVLG (14:51)
[2016-11-22] MEDS ORDERED: PROB1TAB16 PEG (14:51)
[2016-11-22] MEDS ORDERED: MELA1TAB4 PEG (14:51)
[2016-11-22] MEDS ORDERED: LORA-741 PEG (14:51)
[2016-11-22] MEDS ORDERED: ONDA4TAB46 PEG (14:51)
[2016-11-22] MEDS ORDERED: PENT100C6 PEG (14:51)
[2016-11-22] MEDS ORDERED: [UNRECOGNIZED DRUG - CODE] PEG (14:51)
[2016-11-22] MEDS ORDERED: ERTA1INJ IV (14:51)
[2016-11-22] MEDS ORDERED: INSDGI SC (14:51)
[2016-11-22] MEDS ORDERED: POLYSOL4 OP (14:51)
[2016-11-22] MEDS ORDERED: AMLO-110 PEG (14:51)
[2016-11-22] MEDS ORDERED: PHEN-876 PEG (14:51)
[2016-11-22] MEDS ORDERED: BISA10SU7 PR (14:51)
[2016-11-22] MEDS ORDERED: LAMO200T38 PEG (14:51)
[2016-11-22] MEDS ORDERED: ACET-1256 PEG (14:51)
[2016-11-22] MEDS ORDERED: GABA1SOL4 PEG ×3 (14:51)
[2016-11-22] MEDS ORDERED: NUTRLIQ14 PEG (14:51)
[2016-11-22] MEDS ORDERED: CHOL1TAB46 PEG (14:51)
[2016-11-22] MEDS ORDERED: BUSP1TAB46 PEG (14:51)
[2016-11-22] MEDS ORDERED: LIFI5DRO OP (14:51)
[2016-11-22] MEDS ORDERED: CLOP1TAB15 PEG (14:51)
[2016-11-22] MEDS ORDERED: ESCI1TAB10 PEG (14:51)
[2016-11-22] MEDS ORDERED: METH1INJ SC (14:51)
[2016-11-22] MEDS ORDERED: MEDR2.5T GT (15:00)
[2016-11-28] MEDS ORDERED: SRQ25 PO (09:53)
== END 2016-08-10 15:30 | disposition home health service (06) | DRG 166 ==
LOC: ENRESERVTM → ENRESERVDT → EDBD 00:18 → C.EDA 00:20 → C.2E 02:59 → C.MSICU 15:19 → OBSVTOIN 15:51
PROVIDERS: ADMIT Internal Medicine; ATTEND Internal Medicine
PROC: 5A1955Z Respiratory Ventilation, Greater than 96 Consecutive Hours (ICD-10-PCS; principal; 2016-07-30)
PROC: 0B9 Respiratory System, Drainage (ICD-10-PCS; 2016-08-02)
DX: J18.9 Pneumonia, unspecified organism (principal); G82.51 Quadriplegia, C1-C4 complete; G93.41 Metabolic encephalopathy; J96.21 Acute and chronic respiratory failure with hypoxia; J96.22 Acute and chronic respiratory failure with hypercapnia; N39.0 Urinary tract infection, site not specified; E87.0 Hyperosmolality and hypernatremia; E87.2 Acidosis; K56.0 Paralytic ileus; E87.1 Hypo-osmolality and hyponatremia; J44.0 Chronic obstructive pulmonary disease with (acute) lower respiratory infection; G40.909 Epilepsy, unspecified, not intractable, without status epilepticus; Z93.0 Tracheostomy status; J44.9 Chronic obstructive pulmonary disease, unspecified; Z87.01 Personal history of pneumonia (recurrent); Z99.81 Dependence on supplemental oxygen; E11.9 Type 2 diabetes mellitus without complications; Z80.9 Family history of malignant neoplasm, unspecified; Z83.3 Family history of diabetes mellitus; Z82.49 Family history of ischemic heart disease and other diseases of the circulatory system; Z83.6 Family history of other diseases of the respiratory system; Z88.8 Allergy status to other drugs, medicaments and biological substances; Z88.0 Allergy status to penicillin; Z79.82 Long term (current) use of aspirin; Z79.02 Long term (current) use of antithrombotics/antiplatelets; Z79.899 Other long term (current) drug therapy; Z79.4 Long term (current) use of insulin; Z86.73 Personal history of transient ischemic attack (TIA), and cerebral infarction without residual deficits; Z93.1 Gastrostomy status; I50.9 Heart failure, unspecified; I11.0 Hypertensive heart disease with heart failure; R55 Syncope and collapse; H02.401 Unspecified ptosis of right eyelid; R29.810 Facial weakness; F41.9 Anxiety disorder, unspecified; F32.9 Major depressive disorder, single episode, unspecified; D63.8 Anemia in other chronic diseases classified elsewhere; J69.0 Pneumonitis due to inhalation of food and vomit; J39.8 Other specified diseases of upper respiratory tract; E83.41 Hypermagnesemia; R19.7 Diarrhea, unspecified; E83.39 Other disorders of phosphorus metabolism; E11.65 Type 2 diabetes mellitus with hyperglycemia; B96.4 Proteus (mirabilis) (morganii) as the cause of diseases classified elsewhere

== ENCOUNTER 2016-08-18 16:36 | Emergency (ER) | payer OTHER ==
[~2016-08-18 16:36] MED LIST changes: -ACET-1256 PEG; -AGGRENOX PEG; -ALL100 PEG; -AMLO-110 PEG; -BACL10TA PEG; -BISA10SU7 PR; -BUSP1TAB46 PEG; -CHOL1TAB46 PEG; -ESCI1TAB10 PEG; -GENT0.1C2 FLUSH; -KPP250 PEG; -LAMO150T32 PEG; -LAMO200T38 PEG; -LAMO200T38 PO; -LAMO25TA PEG; -LDDP5 TOP; -LEVE100S10 PEG; -LEVE250T PEG; -LEVO-17 GT; -LEVO-17 PEG; -LEVO1TAB35 PO; -LEXAPRO PEG; -LIFI5DRO; -LIFI5DRO OP; -LORA-741 PO; -MEDR2.5T GT; -MELA1CAP PO; -MELA1TAB4 PEG; -MELA1TAB5 PO; -METH1INJ SC; -METH1INJ SQ; -NVLG; -NVLG SC; -ONDA4TAB46 PEG; -PHEN-876 GT; -POLYSOL4 OP; -PROB1TAB16 PEG; -SRQ25 PO; -[UNRECOGNIZED DRUG - CODE] PEG
[2016-08-18] MEDS ORDERED: LCTX PEG (17:09)
[2016-08-18] MEDS ORDERED: LAMO25TA PEG (17:12)
[2016-08-18] MEDS ORDERED: NVLG SC (17:26)
--- NOTE | 2016-08-18 17:37 | EMERGENCY ROOM VISIT NOTE ---
History Report prepared by [place]: Dixon Wilkinson Under the Supervision of: Dr. Rajat Fontanez D.O. First contact with patient: 17:15 Chief Complaint: PEG TUBE REPLACEMENT Stated Complaint: LEAKING PEG TUBE History of Present Illness The patient is a 71 year old female who presents to the Emergency Room with complaints of a sudden cracked PEG tube beginning several hours prior to arrival. The patient states her PEG tube is not working properly. As per home health nurse, the patient's PEG tube appears to be leaking when giving food or medications. They would like a replacement for her PEG tube. She denies any other medical concerns at this time. Source of History: patient, caregiver Onset: several hours [employer] Position: other (PEG tube) Quality: other (cracked) Timing: other (sudden) Note: Associated symptoms: leaking PEG tube Review of Systems See HPI for pertinent positives & negatives. A total of 10 systems reviewed and were otherwise negative. Past Medical & Surgical Medical Problems: (1) Acute and chronic respiratory failure (2) Aspiration pneumonia (3) Chronic obstructive lung disease (4) Chronic respiratory failure (5) Chronic urinary tract infection (6) Dependence on continuous positive airway pressure ventilation (7) ESOPHAGEAL CANDIDITIS (8) leukocytoclastic vasculitis (9) Quadriplegia (10) Respiratory arrest (11) Respiratory failure (12) vent dep Family History Cancer Diabetes mellitus Heart disease Hypertension Lung disease Social History Smoking Status: Never Smoker Alcohol Use: none Drug Use: none Marital Status: Housing Status: lives with family, other Occupation Status: disabled, other Current/Historical Medications Scheduled Albuterol Hfa (Ventolin Hfa), 2 PUFFS INH BID Allopurinol (Zyloprim), 100 MG PEG DAILY Amlodipine Besylate (Norvasc), 3.75 MG PEG DAILY Aspirin (Aspirin Ec), 81 MG PEG DAILY Aspirin-Dipyridamole 25MG/200MG (Aggrenox 200MG/25MG), 1 CAP PEG BID Bisacodyl (Bisacodyl), 10 MG NJ UD Buspirone Hcl (Buspar), 7.5 MG PEG BID Clopidogrel (Plavix), 75 MG PEG DAILY Epoetin Biju (Procrit), 1 DOSE INJ WK Ertapenem Sodium (Invanz), 1 GM IV DAILY Escitalopram Oxalate (Lexapro), 20 MG PEG QAM Fluconazole (Diflucan), 100 MG PEG QPM Gabapentin (Gabapentin), 600 MG PEG 2200 Gabapentin (Gabapentin), 100 MG PEG QAM Gabapentin (Gabapentin), 200 MG PEG 1600 Gentamicin In Saline (Gentamicin Sulfate/0.9% S), 88 MG INJ WEEKLY Hypochlorous Acid (Avenova with Neutrox), 1 APPLN TOP BID Insulin Aspart (Novolog), 1 DOSE SC UD Insulin Glargine (Lantus), 13 UNITS SC QPM Lactobacillus Acidophilus (Lactinex), 1 TAB PEG TID Lamotrigine (Lamictal), 75 MG PEG BID Levetiractam (Levetiracetam), 500 MG PO BID Lidocaine (Lidoderm Patch 5%), 2 PATCH TOP Q12 Lifitegrast (Xiidra), 1 DROP OPB BID Nutritional Supplements (Nutren 2.0), 267 ML PEG TID Ondansetron Hcl (Zofran), 4 MG PEG AC Pentosan Polysulfate Sodium (Elmiron), 100 MG PEG BID Polyethylene Glycol 3350 (Miralax), 17 GM PO DAILY Propylene Glycol (Ophth) (Systane Balance Restorati), 1 APPLN OPB DAILY White Petrolatum-Mineral Oil (Systane Nighttime), 1 APPLN OPB HS Scheduled PRN Acetaminophen (Tylenol), 1,000 MG PEG Q6 PRN for Pain or Fever Lorazepam (Ativan), 0.5 MG PEG DAILY PRN for Anxiety Phenazopyridine HCl (Pyridium), 200 MG PEG BID PRN for Bladder pain Polyethylene Glycol-Propylene (Systane), 2 DROPS OPB BID PRN for DRY EYES Allergies Coded Allergies: Ampicillin (Verified Allergy, Unknown, Unknown, 08/18/16) Cephalexin (Verified Allergy, Unknown, Unknown, 08/18/16) Cephalosporins (Verified Allergy, Unknown, UNKN, 08/18/16) Erythromycin (Verified Allergy, Unknown, UNKNOWN, 08/18/16) Linezolid (Verified Allergy, Unknown, UNKN, 08/18/16) Nitrofurantoin (Verified Allergy, Unknown, Unknown, 08/18/16) Penicillins (Verified Allergy, Unknown, UNKN, 08/18/16) Physical Exam Vital Signs Date Time Temp Pulse Resp B/P Pulse Ox O2 Delivery O2 Flow Rate FiO2 08/18/16 16:40 36.3 57 20 141/61 100 Room Air Physical Exam CONSTITUTIONAL/VITAL SIGNS: Reviewed / noted above. GENERAL: Non-toxic in appearance. Sitting in wheelchair. INTEGUMENTARY: Warm, dry, and [place]. HEAD: Normocephalic. EYES: without scleral icterus or trauma. ENT/OROPHARYNX: clear and moist. LYMPHADENOPATHY/NECK: Is supple without lymphadenopathy or meningismus. RESPIRATORY: Tracheostomy tube in place. Lungs clear and equal. CARDIOVASCULAR: Regular rate and rhythm. GI/ABDOMEN: PEG tube os found in the left upper quadrant. The distal end of the PEG tube has a Y-shaped splitter, and it appears to be cracked close to the base. Soft and nontender. No organomegaly or pulsatile mass. No rebound or guarding. Normal bowel sounds. EXTREMITIES: Warm and well perfused. BACK: No CVA tenderness. NEUROLOGICAL: Intact without focal deficits. PSYCHIATRIC: normal affect. MUSCULOSKELETAL: Normally developed with good muscle tone. Medical Decision & Procedures ED Course 1717: Previous medical records were reviewed. The patient was evaluated in room A11B. A complete history and physical examination was performed. 1738: On reevaluation, the patient is doing well. I discussed the results and findings with the patient. She verbalized agreement of the treatment plan. The patient was discharged home. Medical Decision This is a 71-year-old female who presents to the ED with a chief complaint of a broken feeding tube. The distal portion of the tube where there is a Y is cracked. She came in for evaluation of this. She denies any other symptoms. We were able to obtain the Y portion of the feeding tube and replace it for the patient. She was discharged. Impression Primary Impression: Feeding tube dysfunction Scribe Attestation The scribe's documentation has been prepared under my direction and personally reviewed by me in its entirety. I confirm that the note above accurately reflects all work, treatment, procedures, and medical decision making performed by me. Departure Information Dispostion Home / Self-Care Referrals Dirk Luther MD (PCP) Forms HOME CARE DOCUMENTATION FORM, IMPORTANT VISIT INFORMATION, WORK / SCHOOL INSTRUCTIONS Patient Instructions My [facility] Additional Instructions Follow-up with your doctor for further care and evaluation as needed. Return to the emergency department for worsening or new symptoms or any concerns. You have been examined and treated today on an emergency basis only. This is not a substitute for, or an effort to provide, complete comprehensive medical care. It is impossible to recognize and treat all injuries or illnesses in a single emergency department visit. It is therefore important that you follow up closely with your doctor. Call as soon as possible for an appointment.
[2016-08-18 17:49] VITALS: BP 153/83; PULSE 59; TEMP 36.3; O2SAT 100
[2016-10-08] MEDS ORDERED: AGGRENOX PEG (17:02)
[2016-10-08] MEDS ORDERED: BACL10TA PEG (17:06)
[2016-10-08] MEDS ORDERED: LEVO-17 GT (17:29)
[2016-10-08] MEDS ORDERED: LEVE100S10 PEG (17:34)
[2016-10-08] MEDS ORDERED: LEXAPRO PEG (17:38)
[2016-10-08] MEDS ORDERED: MELA1CAP PO (17:59)
[2016-10-08] MEDS ORDERED: METH1INJ SQ (18:05)
[2016-10-10] MEDS ORDERED: LEVO1TAB35 PO (14:08)
[2016-11-08] MEDS ORDERED: LAMO200T38 PO (14:36)
[2016-11-22] MEDS ORDERED: NVLG (14:51)
[2016-11-22] MEDS ORDERED: PHEN-876 PEG (14:51)
[2016-11-22] MEDS ORDERED: ERTA1INJ IV (14:51)
[2016-11-22] MEDS ORDERED: CLOP1TAB15 PEG (14:51)
[2016-11-22] MEDS ORDERED: BUSP1TAB46 PEG (14:51)
[2016-11-22] MEDS ORDERED: POLYSOL4 OP (14:51)
[2016-11-22] MEDS ORDERED: AGG PEG (14:51)
[2016-11-22] MEDS ORDERED: METH1INJ SC (14:51)
[2016-11-22] MEDS ORDERED: PENT100C6 PEG (14:51)
[2016-11-22] MEDS ORDERED: LDDP5 TOP (14:51)
[2016-11-22] MEDS ORDERED: LAMO150T32 PEG (14:51)
[2016-11-22] MEDS ORDERED: LIFI5DRO OP (14:51)
[2016-11-22] MEDS ORDERED: FLUC100T4 PEG (14:51)
[2016-11-22] MEDS ORDERED: LEVO-17 PEG (14:51)
[2016-11-22] MEDS ORDERED: PROB1TAB16 PEG (14:51)
[2016-11-22] MEDS ORDERED: INSDGI SC (14:51)
[2016-11-22] MEDS ORDERED: ESCI1TAB10 PEG (14:51)
[2016-11-22] MEDS ORDERED: ONDA4TAB46 PEG (14:51)
[2016-11-22] MEDS ORDERED: CHOL1TAB46 PEG (14:51)
[2016-11-22] MEDS ORDERED: VNTHFA/IN INH (14:51)
[2016-11-22] MEDS ORDERED: ACET-1256 PEG (14:51)
[2016-11-22] MEDS ORDERED: GABA1SOL4 PEG ×3 (14:51)
[2016-11-22] MEDS ORDERED: POLY335019 PEG (14:51)
[2016-11-22] MEDS ORDERED: LAMO200T38 PEG (14:51)
[2016-11-22] MEDS ORDERED: MELA1TAB4 PEG (14:51)
[2016-11-22] MEDS ORDERED: NUTRLIQ14 PEG (14:51)
[2016-11-22] MEDS ORDERED: ALL100 PEG (14:51)
[2016-11-22] MEDS ORDERED: BISA10SU7 PR (14:51)
[2016-11-22] MEDS ORDERED: LORA-741 PEG (14:51)
[2016-11-22] MEDS ORDERED: AMLO-110 PEG (14:51)
[2016-11-22] MEDS ORDERED: [UNRECOGNIZED DRUG - CODE] PEG (14:51)
[2016-11-22] MEDS ORDERED: MEDR2.5T GT (15:00)
[2016-11-28] MEDS ORDERED: SRQ25 PO (09:53)
== END 2016-08-18 17:50 | disposition home or self-care (01) ==
LOC: C.EDB 16:37 → C.EDA 17:50
DX: K94.23 Gastrostomy malfunction (principal); Z87.01 Personal history of pneumonia (recurrent); J44.9 Chronic obstructive pulmonary disease, unspecified; Z87.440 Personal history of urinary (tract) infections; G82.50 Quadriplegia, unspecified; J96.10 Chronic respiratory failure, unspecified whether with hypoxia or hypercapnia; Z80.9 Family history of malignant neoplasm, unspecified; Z83.3 Family history of diabetes mellitus; Z82.49 Family history of ischemic heart disease and other diseases of the circulatory system; Z79.82 Long term (current) use of aspirin; Z79.4 Long term (current) use of insulin; Z79.899 Other long term (current) drug therapy

== ENCOUNTER → 2016-08-18 | Outpatient (CLI) | payer OTHER ==
[~2016-08-18] MED LIST changes: +ACET-1256 PEG; +AGGRENOX PEG; +ALL100 PEG; +AMLO-110 PEG; -ASCO500T16 PO; +BACL10TA PEG; +BISA10SU5 PR; +BISA10SU7 PR; +BUSP1TAB46 PEG; -CALCTAB7 PO; -CHOL100010 PO; +CHOL1TAB46 PEG; -DLCS PR; -DOCU-94 PO; +ESCI1TAB10 PEG; -ESCI1TAB10 PO; -FIDA1TAB PO; +GABA1SOL4 PEG; +GENT0.1C2 FLUSH; +HYPO0.01 TOP; +INSDGI SC; +INVI1 IV; -IPRASOL4 INH; +KPP250 PEG; +KPPSUDL500 PO; +LAMO150T32 PEG; +LAMO200T38 PEG; +LAMO200T38 PO; +LAMO25TA PEG; +LCTX PEG; +LDDP5 TOP; +LEVE100S10 PEG; +LEVE250T PEG; +LEVO-17 GT; +LEVO-17 PEG; -LEVO-17 PO; +LEVO1TAB35 PO; +LEXAPRO PEG; +LIFI5DRO; +LIFI5DRO OP; +LMC25 PEG; +LORA-741 PO; +LRS10 PO; -LYSI500C4 PO; -MAGNTAB4 PO; +MEDR2.5T GT; +MELA1CAP PO; +MELA1TAB4 PEG; -MELA1TAB4 PO; +MELA1TAB5 PO; -MERO500I3 IV; -METH-1305 PO; +METH1INJ SC; -MULT-116 PO; -NRN100 PO; +NUTRLIQ14 PEG; +NVLG; +ONDA4TAB46 PEG; -ONDA4TAB46 PO; +ONDA4TAB65 PEG; -PANT40TA PO; +PHEN-876 GT; +POLYSOL4 OP; +PROB1TAB16 PEG; +PROP1SOL OPB; -QUET1TAB30 PO; -SOLI10TA2 PO; +SRQ25 PO; -THIA50TA3 PO; +VNTHFA/IN INH; +[UNRECOGNIZED DRUG - CODE] PEG; +[UNRECOGNIZED DRUG - CODE] PEG
[2016-08-18 10:36] LABS: BASO % 0.6 %; BASO ABS # 0.05 K/uL (0-0.2); COMPLETE YES; EOS % 1.6 %; HEMATOCRIT 35.4 % (37-47); IG% 0.4 %; LYMPH % 49.3 %; MEAN CELL VOLUME 95.2 fL (80-100); MEAN CORPUSCULAR HEMOGLOBIN 29.3 pg (25-34); MEAN CORPUSCULAR HGB CONC 30.8 g/dl (32-36); MEAN PLATELET VOLUME 9.2 fL (7.4-10.4); MONO % 7.8 %; NEUT % 40.3 %; PLATELET COUNT 395 K/uL (130-400); RED BLOOD COUNT 3.72 M/uL (4.2-5.4); WHITE BLOOD COUNT 7.71 K/uL (4.8-10.8)
[2016-08-18 11:01] LABS: ALT/SGPT 29 U/L (12-78); AST/SGOT 20 U/L (15-37); BLOOD UREA NITROGEN 32 mg/dl (7-18); BUN/CREATININE RATIO 44.8 (10-20); CALCIUM 9.2 mg/dl (8.5-10.1); CARBON DIOXIDE 28 mmol/L (21-32); CHLORIDE 103 mmol/L (98-107); CREATININE 0.71 mg/dl (0.60-1.20); GLUCOSE 76 mg/dl (70-99); POTASSIUM 4.7 mmol/L (3.5-5.1); SODIUM 137 mmol/L (136-145)
[2016-08-18 11:03] LABS: ALB/GLOB RATIO 0.4 (0.9-2); ALKALINE PHOSPHATASE 119 U/L (45-117)
== END | disposition home or self-care (01) ==
LOC: C.LABSPEC 10:18
PROVIDERS: ATTEND Internal Medicine Infectious Disease
DX: J96.10 Chronic respiratory failure, unspecified whether with hypoxia or hypercapnia (principal); Z79.2 Long term (current) use of antibiotics

== ENCOUNTER → 2016-09-04 | Outpatient (CLI) | payer OTHER ==
[~2016-09-04] MED LIST changes: +ACET-1256 PEG; +AGGRENOX PEG; +ALL100 PEG; +AMLO-110 PEG; +BACL10TA PEG; +BISA10SU7 PR; +BUSP1TAB46 PEG; +CHOL1TAB46 PEG; +ESCI1TAB10 PEG; +GENT0.1C2 FLUSH; -INVI1 IV; +KPP250 PEG; +LAMO150T32 PEG; +LAMO200T38 PEG; +LAMO200T38 PO; +LAMO25TA PEG; +LDDP5 TOP; +LEVE100S10 PEG; +LEVE250T PEG; +LEVO-17 GT; +LEVO-17 PEG; +LEVO1TAB35 PO; +LEXAPRO PEG; +LIFI5DRO; +LIFI5DRO OP; -LMC25 PEG; +LORA-741 PO; -LRS10 PO; +MEDR2.5T GT; +MELA1CAP PO; +MELA1TAB4 PEG; +MELA1TAB5 PO; +METH1INJ SC; +METH1INJ SQ; -MISCCAP80 PO; +NVLG; +NVLG SC; +ONDA4TAB46 PEG; +PHEN-876 GT; +POLYSOL4 OP; +PROB1TAB16 PEG; +SRQ25 PO; +[UNRECOGNIZED DRUG - CODE] PEG
== END | disposition home or self-care (01) ==
LOC: C.LAB 16:13
PROVIDERS: ATTEND Internal Medicine
DX: R19.5 Other fecal abnormalities (principal)

== ENCOUNTER → 2016-09-11 | Outpatient (CLI) | payer OTHER | END | disposition home or self-care (01) | LOC: C.LABSPEC 11:03 | PROVIDERS: ATTEND Psychiatry & Neurology Neurology | DX: G40.909 Epilepsy, unspecified, not intractable, without status epilepticus (principal); Z51.81 Encounter for therapeutic drug level monitoring; Z79.899 Other long term (current) drug therapy ==

== ENCOUNTER → 2016-09-17 | Outpatient (CLI) | payer OTHER ==
[2016-09-17 10:36] LABS: ALT/SGPT 34 U/L (12-78); BLOOD UREA NITROGEN 38 mg/dl (7-18); CALCIUM 9.8 mg/dl (8.5-10.1); CARBON DIOXIDE 27 mmol/L (21-32); CHLORIDE 99 mmol/L (98-107); GLUCOSE 200 mg/dl (70-99); POTASSIUM 4.2 mmol/L (3.5-5.1); SODIUM 137 mmol/L (136-145)
[2016-09-17 10:39] LABS: ALB/GLOB RATIO 0.4 (0.9-2); ALKALINE PHOSPHATASE 121 U/L (45-117); AST/SGOT 32 U/L (15-37)
== END | disposition home or self-care (01) ==
LOC: C.LABSPEC 09:57
PROVIDERS: ATTEND Internal Medicine
DX: Z51.81 Encounter for therapeutic drug level monitoring (principal); Z79.2 Long term (current) use of antibiotics

== ENCOUNTER → 2016-10-01 | Outpatient (CLI) | payer OTHER ==
[~2016-10-01] MED LIST changes: -ASPI81TA28 PEG
== END | disposition home or self-care (01) ==
LOC: C.LABSPEC 10:02
PROVIDERS: ATTEND Psychiatry & Neurology Neurology
DX: G40.909 Epilepsy, unspecified, not intractable, without status epilepticus (principal); Z51.81 Encounter for therapeutic drug level monitoring; Z79.899 Other long term (current) drug therapy

== ENCOUNTER 2016-10-02 11:14 | Day surgery (SDC) | payer OTHER ==
[2016-09-18 09:20] VITALS: BMI 28.0
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
[~2016-10-02] VITALS: Ht 152.4 cm; Wt 66.8 kg
[~2016-10-02 11:14] MED LIST changes: -ACET-1256 PEG; -AGGRENOX PEG; -ALL100 PEG; -AMLO-110 PEG; -BACL10TA PEG; -BISA10SU7 PR; -BUSP1TAB46 PEG; -CHOL1TAB46 PEG; -ESCI1TAB10 PEG; +FENTANYL CITRATE INJ 50 MCG/1 ML 2 ML VIAL ONE; -GENT0.1C2 FLUSH; -KPP250 PEG; +LACTATED RINGER'S 1000ML 1,000 ML IV SCH; -LAMO150T32 PEG; -LAMO200T38 PEG; -LAMO200T38 PO; -LDDP5 TOP; -LEVE100S10 PEG; -LEVE250T PEG; -LEVO-17 GT; -LEVO-17 PEG; -LEVO1TAB35 PO; -LEXAPRO PEG; -LIFI5DRO; -LIFI5DRO OP; -LORA-741 PO; -MEDR2.5T GT; -MELA1CAP PO; -MELA1TAB4 PEG; -MELA1TAB5 PO; -METH1INJ SC; -METH1INJ SQ; +MIDAZOLAM HCL 1 MG/ML 2ML VIAL ONE; -NVLG; -ONDA4TAB46 PEG; -PHEN-876 GT; -POLYSOL4 OP; -PROB1TAB16 PEG; -SRQ25 PO; +VANCOMYCIN 1GM/270ML NSS IV SCH; -[UNRECOGNIZED DRUG - CODE] PEG
[2016-10-02 12:17] VITALS: BP 128/57; PULSE 58; TEMP 36.5; O2SAT 100; Ht 152.4 cm; Wt 66.8 kg
[2016-10-02] MEDS ORDERED: BUPIVACAINE/EPINEPHRINE 0.25% 1:200,000 30 ML VIAL ONE (12:39)
[2016-10-02] MEDS ORDERED: NEOMYCIN/POLYMYX/BACITR OINT 15 GM TUBE ONE (12:40)
[2016-10-02] MEDS ORDERED: BACITRACIN 50000 UNIT VIAL ONE (12:40)
[2016-10-02] MEDS ORDERED: LIDO 2%/EPINEPHRINE 1:100000 20 ML VIAL INFIL ONE (12:41)
[2016-10-02] MEDS ORDERED: LEVE250T PEG (12:50)
[2016-10-02] MEDS ORDERED: EpHEDrine SULFATE INJ 50 MG/ML AMP IV PRN (13:00)
[2016-10-02] MEDS ORDERED: ONDANSETRON INJ 2 MG/ML 2 ML VIAL IV PRN (13:00)
[2016-10-02] MEDS ORDERED: ATROPINE SULFATE 0.1 MG/ML 5ML SYR IV PRN (13:00)
[2016-10-02] MEDS ORDERED: FENTANYL CITRATE INJ 50 MCG/1 ML 2 ML VIAL IV PRN (13:00)
[2016-10-02] MEDS ORDERED: PROPOFOL IV EMULSION 10 MG/ML 20 ML VIAL IV ONE (13:39)
[2016-10-02] MEDS ORDERED: ONDANSETRON INJ 2 MG/ML 2 ML VIAL ONE (13:39)
--- NOTE | 2016-10-02 14:51 | [facility] Operative Report ---
Operative Report Operative Date Oct 02, 2016. Pre-Operative Diagnosis End of life intrathecal pump Post-Operative Diagnosis Same Procedure(s) Performed Removal and replacement of intrathecal pump. Surgeon Dr. Christopher Multimedia Specialist Surgeon(s) Dr. Gutierrez Estimated Blood Loss 10 cc Findings See below Specimens A: explanted pain pump Drains None Anesthesia General Complication(s) None Disposition Recovery Room / PACU Description of Procedure INTRATHECAL PUMP REPLACEMENT PROCEDURE PERFORMED: Intrathecal pump replacement PREOPERATIVE DIAGNOSIS: End of life intrathecal pump POSTOPERATIVE DIAGNOSIS: Same. COMPLICATIONS: None. SURGEON: Dr. Herbert Christopher. Dr. Gutierrez. ANESTHESIA: General via tracheostomy. MATERIAL FORWARDED TO THE LAB: Explanted pump. EBL: 10 ml IMPLANTED PUMP SIZE: 20 mL. MEDICATIONS PLACED IN THE PUMP: Baclofen 1,575.0 mcg, Hydromorphone 10.0 mg, Bupivacaine 12.5 mg and Clonidine 250.0 mcg per mL. INDICATIONS: The patient had an end of life pump with less than 1 month prior to system failure, thus requiring replacement. The patient was explained the risks, benefits, alternatives of the procedure and agreed to proceed as above. Informed consent was obtained and witnessed. A time out was performed after the patient was brought into the Operating Room. Antibiotics were given. The patient was then induced with general anesthesia without complications and was placed in the supine. The skin was prepped with DuraPrep and Betadine and draped in sterile fashion. The existing pump was identified and using a scalpel , electro cautery, and blunt dissection, the existing pump was exposed. The four retaining sutures were removed and the old pump was explanted. The catheter was disconnected from the old pump and free flowing CSF was noted. 2 cc of CSF was aspirated from the catheter. The new pump was opened and prepared according to [employer] standards and was filled with 19 mL of new medication of same type and concentration. The existing connector was noted to be worn and therefore 1.5 cm of the catheter was removed and a new connector was used. The pump catheter was secured to the new pump and secured. The catheter access port was accessed and revealed free flowing CSF. Next, the pocket was irrigated with sterile normal saline with bacitracin. Hemostasis was checked. The new pump was placed into the pocket in the 12 O'clock position. The intrathecal pump was anchored in the pocket with 4-0 Prolene sutures. Both wounds were irrigated with bacitracin-containing normal saline. Both wounds were closed in similar fashion using continuous 0 V lock suture for deeper layer and running 3-0 V lock suture for subcuticular layer. Prineo to the skin. 4 x 4 gauze and pressure dressing was applied to both sites. Abdominal binder was placed. At the conclusion of the procedure, the pump was re-interrogated and reprogrammed to deliver 262.8 baclofen, 1.669 mg, bupivacaine 2.086 mg and clonidine 41.72 mcg per day. The patient was allowed to emerge from general anesthesia and transported to the recovery room in stable condition uneventfully. The patient will follow up at [facility] pain clinic within 7 days for a wound check and then plan to have the ruth ann removed at day 14. I attest to the content of the Intraoperative Record and any orders documented therein. Any exceptions are noted below.
--- NOTE | 2016-10-02 14:54 | Discharge Instructions ---
Discharge Instructions Date of Service Oct 02, 2016. Visit Reason for Visit: Spastic Quadriplegia 2ND To Spinal Cord Injury Discharge Discharge Diagnosis / Problem: Quadrapelgia with neuropathic pain and spasticity Discharge Goals Goal(s): Decrease discomfort, Improve function Medications Stopped Medications Name(s): none Activity Recommendations Activity Recommendations: no showers for 3 days Exercise/Sports Limitations: as tolerated Shower/Bathe: may shower/bathe in 3 days Anesthesia . Post Anesthesia Instructions: If you have had General Anesthesia or IV Sedation: * Do not drive today. * Resume driving when surgeon permits. * Do not make important decisions or sign legal documents today. * Call surgeon for: * Temperature elevations greater than 101 degrees F. * Uncontrollable pain. * Excessive bleeding. * Persistent nausea and vomiting. * Medication intolerance (nausea, vomiting or rash). * For nausea and vomiting use only clear liquids such as: tea, soda, bouillon until nausea subsides, then gradually increase diet as tolerated. * If you have any concerns or questions, call your surgeon's office. If physician is unavailable and it is an emergency, call 911 or go to the nearest emergency room. . Instructions Instructions / Follow-Up . * Change dressings daily. Apply sterile dry gauze. * Call [facility] [phone] or go to the nearest emergency room if he experience high fevers, new back pain, new neurological symptoms such as numbness or weakness in the lower extremity or new bowel bladder incontinence. Also of call if he experience a headache that is positional. * Wear abdominal binder. * No showers for 3 days. * Resume normal activity. No repetitive bending, twisting or reaching overhead for 2 weeks. Do not lift more than 5 pounds for 2 weeks. . Follow-Up Follow-Up: 1 week in office for wound check Diet Recommendations Home Diet: resume previous diet Procedures Procedures Performed: Implantation of intrathecal pump with interrogation, analysis, and re-programming Pending Studies Studies pending at discharge: no Medical Emergencies . Who to Call and When: Medical Emergencies: If at any time you feel your situation is an emergency, please call 911 immediately. . Non-Emergent Contact Non-Emergency issues call your: Primary Care Provider, Pain Management provider Call Non-Emergent contact if: temperature is above 101, your pain is worsening , wound has increased drainage, wound has increased redness . . "Provider Documentation" section prepared by Michael Christopher. .
[2016-10-02] MEDS ORDERED: ROCURONIUM BROMIDE 10 MG/ML 5 ML VIAL ONE (15:00)
--- NOTE | 2016-10-02 15:24 | Anesthesiology Progress Note ---
Anesthesia Post Op Note Date & Time Oct 02, 2016 at 15:24 Vital Signs Pain Intensity: 0 Vital Signs Past 12 Hours Date Time Temp Pulse Resp B/P (MAP) Pulse Ox O2 Delivery O2 Flow Rate FiO2 10/02/16 15:10 59 17 138/65 2 Mechanical Ventilator 10/02/16 15:00 58 18 147/69 2 Mechanical Ventilator 10/02/16 14:50 36 57 12 144/68 2 Mechanical Ventilator 10/02/16 12:17 36.5 58 18 128/57 (80) 100 Mechanical Ventilator Notes Mental Status: alert / awake / arousable, participated in evaluation Pt Amnestic to Procedure: Yes Nausea / Vomiting: adequately controlled Pain: adequately controlled Airway Patency, RR, SpO2: stable & adequate BP & HR: stable & adequate Hydration State: stable & adequate Anesthetic Complications: no major complications apparent
[2016-10-02 15:35] VITALS: BP 146/72; PULSE 58; TEMP 36.4; O2SAT 2
[2016-10-08] MEDS ORDERED: AGGRENOX PEG (17:02)
[2016-10-08] MEDS ORDERED: BACL10TA PEG (17:06)
[2016-10-08] MEDS ORDERED: LEVO-17 GT (17:29)
[2016-10-08] MEDS ORDERED: LEVE100S10 PEG (17:34)
[2016-10-08] MEDS ORDERED: LEXAPRO PEG (17:38)
[2016-10-08] MEDS ORDERED: MELA1CAP PO (17:59)
[2016-10-08] MEDS ORDERED: METH1INJ SQ (18:05)
[2016-10-10] MEDS ORDERED: LEVO1TAB35 PO (14:08)
[2016-11-08] MEDS ORDERED: LAMO200T38 PO (14:36)
[2016-11-22] MEDS ORDERED: LAMO200T38 PEG (14:51)
[2016-11-22] MEDS ORDERED: ERTA1INJ IV (14:51)
[2016-11-22] MEDS ORDERED: PROB1TAB16 PEG (14:51)
[2016-11-22] MEDS ORDERED: INSDGI SC (14:51)
[2016-11-22] MEDS ORDERED: LEVO-17 PEG (14:51)
[2016-11-22] MEDS ORDERED: ONDA4TAB46 PEG (14:51)
[2016-11-22] MEDS ORDERED: CLOP1TAB15 PEG (14:51)
[2016-11-22] MEDS ORDERED: METH1INJ SC (14:51)
[2016-11-22] MEDS ORDERED: NVLG (14:51)
[2016-11-22] MEDS ORDERED: BISA10SU7 PR (14:51)
[2016-11-22] MEDS ORDERED: ALL100 PEG (14:51)
[2016-11-22] MEDS ORDERED: PENT100C6 PEG (14:51)
[2016-11-22] MEDS ORDERED: LORA-741 PEG (14:51)
[2016-11-22] MEDS ORDERED: VNTHFA/IN INH (14:51)
[2016-11-22] MEDS ORDERED: ESCI1TAB10 PEG (14:51)
[2016-11-22] MEDS ORDERED: AGG PEG (14:51)
[2016-11-22] MEDS ORDERED: FLUC100T4 PEG (14:51)
[2016-11-22] MEDS ORDERED: POLY335019 PEG (14:51)
[2016-11-22] MEDS ORDERED: POLYSOL4 OP (14:51)
[2016-11-22] MEDS ORDERED: MELA1TAB4 PEG (14:51)
[2016-11-22] MEDS ORDERED: PHEN-876 PEG (14:51)
[2016-11-22] MEDS ORDERED: CHOL1TAB46 PEG (14:51)
[2016-11-22] MEDS ORDERED: LDDP5 TOP (14:51)
[2016-11-22] MEDS ORDERED: ACET-1256 PEG (14:51)
[2016-11-22] MEDS ORDERED: [UNRECOGNIZED DRUG - CODE] PEG (14:51)
[2016-11-22] MEDS ORDERED: GABA1SOL4 PEG ×3 (14:51)
[2016-11-22] MEDS ORDERED: AMLO-110 PEG (14:51)
[2016-11-22] MEDS ORDERED: LAMO150T32 PEG (14:51)
[2016-11-22] MEDS ORDERED: NUTRLIQ14 PEG (14:51)
[2016-11-22] MEDS ORDERED: BUSP1TAB46 PEG (14:51)
[2016-11-22] MEDS ORDERED: LIFI5DRO OP (14:51)
[2016-11-22] MEDS ORDERED: MEDR2.5T GT (15:00)
[2016-11-28] MEDS ORDERED: SRQ25 PO (09:53)
== END 2016-10-02 16:53 | disposition home or self-care (01) ==
LOC: C.ACU 11:14
PROVIDERS: ATTEND Anesthesiology
DX: Z45.1 Encounter for adjustment and management of infusion pump (principal); G82.50 Quadriplegia, unspecified; G89.21 Chronic pain due to trauma; M79.2 Neuralgia and neuritis, unspecified; I25.2 Old myocardial infarction; E11.22 Type 2 diabetes mellitus with diabetic chronic kidney disease; I12.9 Hypertensive chronic kidney disease with stage 1 through stage 4 chronic kidney disease, or unspecified chronic kidney disease; I25.10 Atherosclerotic heart disease of native coronary artery without angina pectoris; F41.9 Anxiety disorder, unspecified; F32.9 Major depressive disorder, single episode, unspecified; N18.9 Chronic kidney disease, unspecified; Z99.11 Dependence on respirator [ventilator] status; Z88.1 Allergy status to other antibiotic agents; Z88.0 Allergy status to penicillin; Z79.899 Other long term (current) drug therapy; Z79.4 Long term (current) use of insulin; Z79.02 Long term (current) use of antithrombotics/antiplatelets; Z68.28 Body mass index [BMI] 28.0-28.9, adult

== ENCOUNTER 2016-10-08 14:12 | Inpatient (IN) | payer OTHER ==
[~2016-10-08] VITALS: Ht 152.4 cm; Wt 76.2 kg
[~2016-10-08 14:12] MED LIST changes: -FENTANYL CITRATE INJ 50 MCG/1 ML 2 ML VIAL ONE; -LACTATED RINGER'S 1000ML 1,000 ML IV SCH; +LEVE250T PEG; -MIDAZOLAM HCL 1 MG/ML 2ML VIAL ONE; -VANCOMYCIN 1GM/270ML NSS IV SCH
--- NOTE | 2016-10-08 14:54 | EMERGENCY ROOM VISIT NOTE ---
History Report prepared by [place]: Khanh Zarate Under the Supervision of: Dr. Rajat Thompson M.D. First contact with patient: 14:35 Chief Complaint: SHORTNESS OF BREATH Stated Complaint: SOB - WEIGHT GAIN - LUNG SECRETIONS Nursing Triage Summary: triage note: Pt reports shortness of breath for the past several days. private nurse with pt reports pt has been reporting shortness of breath since saturday and she is having increased secreations. pt states "it's getting worse every day." pt has a tracheostomy vent. History of Present Illness The patient is a 71 year old female who presents to the Emergency Room with complaints of increased shortness of breath over the past two days. As per caregiver, the patient has had increased secretions. The patient is on a ventilator chronically. The patient's pulse ox occasionally dips into the 80s, including this morning. The ventilator is increased as needed. She has not had any recent fevers or falls. The patient is on Plavix. She has been gaining weight rapidly lately. The patient has also had increased confusion per caregiver. Source of History: patient, caregiver Onset: two days ago Position: other (respiratory) Quality: other (shortness of breath) Timing: other (increased) Associated Symptoms: No fevers Review of Systems See HPI for pertinent positives & negatives. A total of 10 systems reviewed and were otherwise negative. Past Medical & Surgical Medical Problems: (1) Acute and chronic respiratory failure (2) Aspiration pneumonia (3) Chronic obstructive lung disease (4) Chronic respiratory failure (5) Chronic urinary tract infection (6) Dependence on continuous positive airway pressure ventilation (7) ESOPHAGEAL CANDIDITIS (8) leukocytoclastic vasculitis (9) Quadriplegia (10) Respiratory arrest (11) Respiratory failure (12) vent dep Family History Cancer Diabetes mellitus Heart disease Hypertension Lung disease Social History Smoking Status: Never Smoker Alcohol Use: none Drug Use: none Marital Status: Housing Status: lives with family, other Occupation Status: disabled, other Current/Historical Medications Scheduled Albuterol Hfa (Ventolin Hfa), 2 PUFFS INH BID Allopurinol (Zyloprim), 100 MG PEG QAM Amlodipine Besylate (Norvasc), 3.75 MG PEG DAILY Buspirone Hcl (Buspar), 7.5 MG PEG BID Clopidogrel (Plavix), 75 MG PEG DAILY Epoetin Biju (Procrit), 40,000 UNITS INJ WK Ertapenem Sodium (Invanz), 1 GM IV DAILY Fluconazole (Diflucan), 100 MG PEG QPM Gabapentin (Gabapentin), 600 MG PEG HS Gabapentin (Gabapentin), 100 MG PEG QAM Gabapentin (Gabapentin), 200 MG PEG 1600 Gentamicin In Saline (Gentamicin Sulfate/0.9% S), 80 MG INJ WEEKLY Hypochlorous Acid (Avenova with Neutrox), 1 APPLN TOP BID Insulin Aspart (Novolog), 1 DOSE SC TID Insulin Glargine (Lantus), 13 UNITS SC HS Lactobacillus Acidophilus (Lactinex), 1 TAB PEG TID Lamotrigine (Lamictal), 150 MG PEG BID Levetiracetam (Keppra), 500 MG PEG BID Levofloxacin (Levaquin), 250 MG GT DAILY Lidocaine (Lidoderm Patch 5%), 2 PATCH TOP DAILY Lifitegrast (Xiidra), 1 DROP OPB BID Melatonin (Melatonin), 1-3 MG PO HS Methylnaltrexone Fabens (Relistor), Unknown Dose SQ Q2D Nutritional Supplements (Nutren 2.0), 267 ML PEG TID Pentosan Polysulfate Sodium (Elmiron), 100 MG PEG BID Polyethylene Glycol 3350 (Miralax), 17 GM PEG DAILY Propylene Glycol (Ophth) (Systane Balance Restorati), 1 APPLN OPB DAILY White Petrolatum-Mineral Oil (Systane Nighttime), 1 APPLN OPB HS [Lexapro Oral More], 20 MG PEG DAILY [aggrenox 25mg/250mg], 250 MG PEG BID Scheduled PRN Acetaminophen (Tylenol), 1,000 MG PEG Q6 PRN for Pain or Fever Baclofen (Lioresal), 10 MG PEG Q3H PRN for Pain Bisacodyl (Bisacodyl), 10 MG MS 5XWK PRN for CONSTIPATION Lorazepam (Ativan), 0.5 MG PEG DAILY PRN for Anxiety Ondansetron Hcl (Zofran), 4 MG PEG AC PRN for Nausea Phenazopyridine HCl (Pyridium), 200 MG PEG BID PRN for Bladder pain Polyethylene Glycol-Propylene (Systane), 2 DROPS OPB BID PRN for DRY EYES Allergies Coded Allergies: Ampicillin (Verified Allergy, Intermediate, RASH, 10/08/16) Cephalexin (Verified Allergy, Intermediate, RASH, 10/08/16) Cephalosporins (Verified Allergy, Intermediate, rash, 10/08/16) Erythromycin (Verified Allergy, Intermediate, RASH, 10/08/16) Nitrofurantoin (Verified Allergy, Intermediate, RASH, 10/08/16) Penicillins (Verified Allergy, Intermediate, RASH, 10/08/16) Linezolid (Verified Allergy, Unknown, UNKN, 10/08/16) Sulfa Antibiotics (Verified Allergy, Unknown, ., 10/08/16) Physical Exam Vital Signs Date Time Temp Pulse Resp B/P (MAP) Pulse Ox O2 Delivery O2 Flow Rate FiO2 10/08/16 17:22 83 20 145/65 100 Trach Collar 2.0 10/08/16 16:39 78 20 139/77 100 Trach Collar 2.0 10/08/16 15:35 67 20 152/75 100 Trach Collar 6.0 Nebulizer 10/08/16 15:24 73 24 100 Mechanical Ventilator 2.0 10/08/16 15:05 65 10/08/16 14:45 98 Trach Collar 2.0 10/08/16 14:45 98 Trach Collar 2.0 10/08/16 14:15 36.5 70 20 149/72 96 2.0 Physical Exam GENERAL: Patient is on a ventilator, trach in place, speaking in one word sentences. HEAD: Normocephalic atraumatic EYES: Ocular movements intact pupils equal and react to light OROPHARYNX mucous membranes are moist no exudates present no erythema or edema present NECK: Supple no nuchal rigidity. Trach in place. CHEST: Good equal expansion LUNGS: On ventilator. CARDIAC: Normal S1 and S2 ABDOMEN: Soft nontender no guarding BACK: No CVA tenderness EXTREMITIES: No pain upon palpation normal muscle strength in all groups no clubbing cyanosis or edema NEURO: Patient is following commands and answering questions appropriately. Alert and oriented x3 Cranial Nerves 2-12 grossly intact Medical Decision & Procedures ER Provider Diagnostic Interpretation: X-ray results as stated below per interpretation by me and the radiologist: SINGLE VIEW CHEST CLINICAL HISTORY: Dyspnea. Increased secretions. FINDINGS: An AP, portable, upright chest radiograph is compared to study dated 08/02/2016. Correlation with chest CT dated 05/28/2016. The examination is degraded by portable technique and patient rotation. A tracheostomy, a right subclavian central venous infusion port, and a left subclavian central venous catheter are unchanged in position. The heart is enlarged. There is pulmonary vascular congestion. Bibasilar airspace opacities are identified. Small pleural effusions are present. No pneumothorax is seen. The skeletal structures are osteopenic. The bony thorax is grossly intact. IMPRESSION: 1. Cardiomegaly with pulmonary vascular congestion. 2. There are bibasilar airspace opacities and trace pleural effusions. This is new from 08/02/2016, and could represent developing pneumonia, aspiration pneumonitis, and/or a component of interstitial edema. Clinical correlation will be required. 3. Stable lines and tubes. Electronically signed by: Melvin Dominguez M.D. 10/08/2016 3:09 PM Dictated Date/Time: 10/08/2016 3:06 PM Laboratory Results Test 10/08/16 14:53 10/08/16 14:59 Influenza Type A (RT-PCR) Neg for Influ A (NEG) Influenza Type A Antigen Neg for Influ A (NEG) Influenza Type B Antigen Neg for Influ B (NEG) Influenza Type B (RT-PCR) Neg for Influ B (NEG) RDW Standard Deviation 57.6 fL (36.4-46.3) RDW Coefficient of Variation 17.0 % (11.5-14.5) White Blood Count 6.89 K/uL (4.8-10.8) Red Blood Count 3.90 M/uL (4.2-5.4) Hemoglobin 11.1 g/dL (12.0-16.0) Hematocrit 36.1 % (37-47) Mean Corpuscular Volume 92.6 fL (80-100) Mean Corpuscular Hemoglobin 28.5 pg (25-34) Mean Corpuscular Hemoglobin Concent 30.7 g/dl (32-36) Platelet Count 230 K/uL (130-400) Mean Platelet Volume 10.1 fL (7.4-10.4) Neutrophils (%) (Auto) 51.2 % Lymphocytes (%) (Auto) 37.0 % Monocytes (%) (Auto) 9.6 % Eosinophils (%) (Auto) 1.5 % Basophils (%) (Auto) 0.3 % Neutrophils # (Auto) 3.53 K/uL (1.4-6.5) Lymphocytes # (Auto) 2.55 K/uL (1.2-3.4) Monocytes # (Auto) 0.66 K/uL (0.11-0.59) Eosinophils # (Auto) 0.10 K/uL (0-0.5) Basophils # (Auto) 0.02 K/uL (0-0.2) Immature Granulocyte % (Auto) 0.4 % Immature Granulocyte # (Auto) 0.03 K/uL (0.00-0.02) Nucleated RBC Absolute Count (auto) 0.00 K/uL (0-0) Nucleated Red Blood Cells % 0.0 % Total Creatine Kinase 110 U/L (26-192) Creatine Kinase MB 5.0 ng/ml (0.5-3.6) Creatine Kinase MB Ratio 4.5 (0-3.0) Troponin I < 0.015 ng/ml (0-0.045) Pro-B-Type Natriuretic Peptide 814 pg/ml (0-900) Labs reviewed by ED physician. Medications Administered Medications (Trade) Dose Ordered Sig/Tasha Route Start Time Stop Time Status Last Admin Dose Admin Albuterol/ Ipratropium (Duoneb) 12 ml ONE ONCE INH 10/08/16 15:15 10/08/16 15:16 DC 10/08/16 15:24 12 ML Vancomycin HCl (Vancomycin 1gm/ 270ml Nss) 1 gm NOW STAT IV 10/08/16 16:35 10/08/16 16:37 DC 10/08/16 17:22 1 GM Aztreonam 2000 mg/ Dextrose 110 ml @ 100 mls/hr NOW STAT IV 10/08/16 16:35 10/08/16 17:40 DC 10/08/16 18:54 100 MLS/HR Levofloxacin (Levaquin / D5W) 750 mg NOW STAT IV 10/08/16 16:35 10/08/16 16:37 DC 10/08/16 17:21 750 MG Ondansetron HCl (Zofran Inj) 4 mg Q6H PRN IV 10/08/16 17:30 11/07/16 17:29 10/08/16 23:35 4 MG Acetaminophen (Tylenol Tab) 1,000 mg Q6H PRN PO 10/08/16 17:30 11/07/16 17:29 10/08/16 23:10 1,000 MG ECG Indication: SOB/dyspnea Rate (beats per minute): 63 Rhythm: normal sinus Findings: no acute ischemic change, no ectopy, other (normal EKG) ED Course 1447: Past medical records reviewed. The patient was evaluated in room C2b. A complete history and physical examination was performed. 1515: DuoNeb 12 ml INH. 1634: Discussed the case with Dr. Polanco, [facility]. The patient will be evaluated. 1635: Levaquin / D5w 750 mg IV, Aztreonam 2000 mg / dextrose 110 ml @ 100 mls/ hr IV, Vancomycin 1 mg IV. Medical Decision Differential diagnosis: Etiologies such as infections, reactive airway disease, pneumonia, pneumothorax , COPD, CHF, cardiac ischemia, pulmonary embolism, musculoskeletal, gastrointestinal, as well as others were entertained. Blood Pressure Screening: Patient was found to have an elevated blood pressure and was referred to their primary care doctor for recheck and further treatment Medication Reconciliation: I attest that I have personally reviewed the patient' s current medication list PORT score: 149 points Age 71 years Sex Female-10 [facility] resident Yes+10 Neoplastic disease No0 Liver disease history No0 CHF history Yes+10 Cerebrovascular disease history Yes+10 Renal disease history No0 Altered mental status Yes+20 Respiratory rate > 29 No0 Systolic blood pressure < 90 mmHg No0 Temperature < 35C (95F) or > 39.9C (103.8F) No0 Pulse > 124 No0 pH < 7.35 No0 BUN > 29 Yes+20 Sodium < 130 No0 Glucose > 249 (US) or > 13.8 (SI) Yes+10 Hematocrit < 30% No0 Yes+10 Partial pressure of oxygen < 60 mmHg No0 Pleural effusion on x-ray: yes+10 Management Step 1: * If the patient is >50 years of age, assign to risk class II - V and proceed to step 2. * If the patient is <50 years of age, but has a history of neoplastic disease, congestive heart failure, cerebrovascular disease, renal disease or liver disease, assign to risk class II - V and proceed to step 2. * If the patient has an altered mental status, pulse ? 125/minute, respiratory rate ? 30/minute, systolic blood pressure ? 90 mm Hg, or temperature < 35 C or ? 40 C, assign to risk class II - V and proceed to step 2 * If none of the above apply, assign to risk class I = low risk. Step 2: * Assign points based on age, gender, fdc residence, co-morbid illness , physical examination findings, and laboratory and radiographic findings as listed above. * Point distribution: Score Risk Disposition ?70 Low risk Outpatient care 71-90 Low risk Outpatient vs. Observation admission 91-130 Moderate risk Inpatient admission >130 High risk Inpatient admission This is a 71-year-old female with history of quadriplegia that presents to the emergency department complaining of increased oxygen requirement as well as suctioning large amounts of mucus out of her lungs. The patient has a history of aspiration pneumonia and does appear to have an aspiration pneumonia on chest x-ray. She was given an hour-long breathing treatment in the emergency department and pancultured. The patient is already on antibiotics for chronic UTI. She has a exceedingly high port score. I did discuss the case with the hospitalist service who agreed to admit the patient. Patient was in agreement with the treatment plan. Consults Time Called: 1630 Consulting Physician: Dr. Polanco, [facility] Hospitalist. Returned Call: 1634 The patient will be evaluated. Impression Primary Impression: PNA (pneumonia) Scribe Attestation The scribe's documentation has been prepared under my direction and personally reviewed by me in its entirety. I confirm that the note above accurately reflects all work, treatment, procedures, and medical decision making performed by me. Departure Information Dispostion Being Evaluated By Hospitalist Referrals Alvaro Turner M.D. (PCP) Patient Instructions My [facility] Health Problem Qualifiers Primary Impression: PNA (pneumonia) Pneumonia type: aspiration pneumonia Aspiration pneumonia type: unspecified Laterality: unspecified laterality Lung location: unspecified part of lung Qualified Codes: J69.0 - Pneumonitis due to inhalation of food and vomit
--- NOTE | 2016-10-08 15:10 | DIAGNOSTIC IMAGING REPORT ---
SINGLE VIEW CHEST CLINICAL HISTORY: Dyspnea. Increased secretions. FINDINGS: An AP, portable, upright chest radiograph is compared to study dated 08/02/2016. Correlation with chest CT dated 05/28/2016. The examination is degraded by portable technique and patient rotation. A tracheostomy, a right subclavian central venous infusion port, and a left subclavian central venous catheter are unchanged in position. The heart is enlarged. There is pulmonary vascular congestion. Bibasilar airspace opacities are identified. Small pleural effusions are present. No pneumothorax is seen. The skeletal structures are osteopenic. The bony thorax is grossly intact. IMPRESSION: 1. Cardiomegaly with pulmonary vascular congestion. 2. There are bibasilar airspace opacities and trace pleural effusions. This is new from 08/02/2016, and could represent developing pneumonia, aspiration pneumonitis, and/or a component of interstitial edema. Clinical correlation will be required. 3. Stable lines and tubes. Electronically signed by: Melvin Dominguez M.D. 10/08/2016 3:09 PM Dictated Date/Time: 10/08/2016 3:06 PM
[2016-10-08] MEDS ORDERED: ALBUT/IPRATROP 3MG/0.5MG NEB 3 ML VIAL INH ONE (15:15)
[2016-10-08 15:24] VITALS: PULSE 73; O2SAT 100
[2016-10-08 15:26] LABS: ALT/SGPT 50 U/L (12-78); BLOOD UREA NITROGEN 33 mg/dl (7-18); BUN/CREATININE RATIO 41.5 (10-20); CALCIUM 9.3 mg/dl (8.5-10.1); CARBON DIOXIDE 28 mmol/L (21-32); CHLORIDE 95 mmol/L (98-107); GLUCOSE 246 mg/dl (70-99); POTASSIUM 4.6 mmol/L (3.5-5.1); SODIUM 131 mmol/L (136-145)
[2016-10-08 15:30] LABS: ALB/GLOB RATIO 0.4 (0.9-2); ALKALINE PHOSPHATASE 194 U/L (45-117); AST/SGOT 62 U/L (15-37); CKMB/CK RATIO 4.5 (0-3.0)
[2016-10-08 16:27] LABS: WHITE BLOOD COUNT 6.89 K/uL (4.8-10.8)
[2016-10-08 16:28] LABS: HEMATOCRIT 36.1 % (37-47); MEAN CELL VOLUME 92.6 fL (80-100)
[2016-10-08 16:29] LABS: BASO % 0.3 %; EOS % 1.5 %; IG% 0.4 %; LYMPH ABS # 2.55 K/uL (1.2-3.4); MEAN CORPUSCULAR HEMOGLOBIN 28.5 pg (25-34); MEAN CORPUSCULAR HGB CONC 30.7 g/dl (32-36); MEAN PLATELET VOLUME 10.1 fL (7.4-10.4); MONO % 9.6 %; NEUT % 51.2 %; PLATELET COUNT 230 K/uL (130-400)
[2016-10-08 16:30] LABS: BASO ABS # 0.02 K/uL (0-0.2); COMPLETE YES
[2016-10-08] MEDS ORDERED: LEVAQUIN 750MG / 150ML D5W IV STA (16:35)
[2016-10-08] MEDS ORDERED: VANCOMYCIN 1GM/270ML NSS IV STA (16:35)
[2016-10-08] MEDS ORDERED: AZTREONAM IV 2,000 MG in DEXTROSE 5% 100ML 100 ML IV STA (16:35)
[2016-10-08] MEDS ORDERED: AGGRENOX PEG ×2 (17:02)
[2016-10-08] MEDS ORDERED: BACL10TA PEG ×2 (17:06)
[2016-10-08 17:26] LABS: INFLUENZA A PCR Neg for Influ A (NEG); INFLUENZA B PCR Neg for Influ B (NEG)
[2016-10-08] MEDS ORDERED: LEVO-17 GT ×2 (17:29)
[2016-10-08] MEDS ORDERED: GLUCAGON FOR INJ 1 MG VIAL SQ PRN (17:30)
[2016-10-08] MEDS ORDERED: ONDANSETRON INJ 2 MG/ML 2 ML VIAL IV PRN (17:30)
[2016-10-08] MEDS ORDERED: GLUCOSE 40% GEL 15 GM TUBE PO PRN (17:30)
[2016-10-08] MEDS ORDERED: GLUCOSE 10 TABS/TUBE PO PRN (17:30)
[2016-10-08] MEDS ORDERED: LORAZEPAM 0.5 MG TAB PEG PRN (17:30)
[2016-10-08] MEDS ORDERED: BACLOFEN 10 MG TAB PEG PRN (17:30)
[2016-10-08] MEDS ORDERED: PHENAZOPYRIDINE HCL 200 MG TAB PO PRN (17:30)
[2016-10-08] MEDS ORDERED: DEXTROSE 50% 50 ML SYR IV PRN (17:30)
[2016-10-08] MEDS ORDERED: BISACODYL 10 MG SUPP PR PRN (17:30)
[2016-10-08] MEDS ORDERED: LEVE100S10 PEG ×2 (17:34)
[2016-10-08] MEDS ORDERED: LEXAPRO PEG ×2 (17:38)
[2016-10-08] MEDS ORDERED: MELA1CAP PO ×2 (17:59)
[2016-10-08 18:00] VITALS: O2SAT 100; BMI 34.2
[2016-10-08] MEDS ORDERED: PHEN-876 GT (18:02)
[2016-10-08] MEDS ORDERED: METH1INJ SQ ×2 (18:05)
--- NOTE | 2016-10-08 18:11 | History and Physical ---
History & Physical Date & Time of Service: Oct 08, 2016 at 17:56 Chief Complaint: Sob - Weight Gain - Lung Secretions Primary Care Physician: Alvaro Turner M.D. History of Present Illness Source: patient, caregiver 71 y/o F c/o worsening SOB. Pt states that this has been ongoing over the last few days. She did have n/v x1 today, but no abd complaints at this time. No chest pain. Pt has / caregivers. She is on TF since this spring. Caregiver states that pt gets very thirsty at times and they give her sips of water. Pt also occasionally takes Lynn's Kisses, but is otherwise NPO. Caregiver states that if pt appears more dehydrated, she will also push an additional 100cc of water between TF. Pt had her intrathecal pump replaced on 10/02 and since that time has been a bit distended. Ongoing bowel movements, but less volume than prior. Pt denies abd pain, but does feel a bit bloated. Nursing notes that pt frequently has LE swelling, but that has been better as of late with compression hose. She has been having some UE swelling to her hands and also around the edge of her trach collar. Pt rotates abx for chronic UTI. She is currently on ertapenem, but will switch to levaquin on 10/15. Pt denies fever, LE pain or swelling. Past Medical/Surgical History Medical Problems: (1) Chronic obstructive lung disease Status: Chronic (2) Chronic respiratory failure Status: Chronic (3) Chronic urinary tract infection Status: Chronic (4) Dependence on continuous positive airway pressure ventilation Status: Chronic (5) Quadriplegia Status: Chronic (6) Respiratory arrest Status: Resolved (7) Respiratory failure Status: Chronic (8) vent dep Status: Chronic DM Depression Family History Family history was reviewed; no changes noted. Social History Smoking Status: Never Smoker Alcohol Use: none Drug Use: none Marital Status: Housing status: other Occupational Status: disabled, other Immunizations History of Influenza Vaccine: N/A Influenza Vaccine Date: Jan 18, 2011 History of Tetanus Vaccine?: Yes Tetanus Immunization Date: Apr 27, 2008 History of Pneumococcal: Yes Pneumococcal Date: Feb 18, 2012 History of Hepatitis B Vaccine: Unknown Multi-Drug Resistant Organisms History of MDRO: No Allergies Coded Allergies: Ampicillin (Verified Allergy, Intermediate, RASH, 10/08/16) Cephalexin (Verified Allergy, Intermediate, RASH, 10/08/16) Cephalosporins (Verified Allergy, Intermediate, rash, 10/08/16) Erythromycin (Verified Allergy, Intermediate, RASH, 10/08/16) Nitrofurantoin (Verified Allergy, Intermediate, RASH, 10/08/16) Penicillins (Verified Allergy, Intermediate, RASH, 10/08/16) Linezolid (Verified Allergy, Unknown, UNKN, 10/08/16) Sulfa Antibiotics (Verified Allergy, Unknown, ., 10/08/16) Home Medications Scheduled Albuterol Hfa (Ventolin Hfa), 2 PUFFS INH BID Allopurinol (Zyloprim), 100 MG PEG QAM Amlodipine Besylate (Norvasc), 3.75 MG PEG DAILY Buspirone Hcl (Buspar), 7.5 MG PEG BID Clopidogrel (Plavix), 75 MG PEG DAILY Epoetin Biju (Procrit), 1 DOSE INJ WK Ertapenem Sodium (Invanz), 1 GM IV DAILY Escitalopram Oxalate (Lexapro), 20 MG PEG QAM Fluconazole (Diflucan), 100 MG PEG QPM Gabapentin (Gabapentin), 600 MG PEG HS Gabapentin (Gabapentin), 100 MG PEG QAM Gabapentin (Gabapentin), 200 MG PEG 1600 Gentamicin In Saline (Gentamicin Sulfate/0.9% S), 80 MG INJ WEEKLY Hypochlorous Acid (Avenova with Neutrox), 1 APPLN TOP BID Insulin Aspart (Novolog), 1 DOSE SC UD Insulin Glargine (Lantus), 13 UNITS SC HS Lactobacillus Acidophilus (Lactinex), 1 TAB PEG TID Lamotrigine (Lamictal), 150 MG PEG BID Levetiracetam (Keppra), 500 MG PEG BID Levofloxacin (Levaquin), 250 MG GT DAILY Lidocaine (Lidoderm Patch 5%), 2 PATCH TOP Q12 Lifitegrast (Xiidra), 1 DROP OPB BID Nutritional Supplements (Nutren 2.0), 267 ML PEG TID Ondansetron Hcl (Zofran), 4 MG PEG AC Pentosan Polysulfate Sodium (Elmiron), 100 MG PEG BID Polyethylene Glycol 3350 (Miralax), 17 GM PO DAILY Propylene Glycol (Ophth) (Systane Balance Restorati), 1 APPLN OPB DAILY White Petrolatum-Mineral Oil (Systane Nighttime), 1 APPLN OPB HS [Lexapro Oral More], 20 MG PEG DAILY [aggrenox 25mg/250mg], 250 MG PEG BID Scheduled PRN Acetaminophen (Tylenol), 1,000 MG PEG Q6 PRN for Pain or Fever Baclofen (Lioresal), 10 MG PEG Q3H PRN for Pain Bisacodyl (Bisacodyl), 10 MG DC 5XWK PRN for CONSTIPATION Lorazepam (Ativan), 0.5 MG PEG DAILY PRN for Anxiety Phenazopyridine HCl (Pyridium), 200 MG PEG BID PRN for Bladder pain Polyethylene Glycol-Propylene (Systane), 2 DROPS OPB BID PRN for DRY EYES Review of Systems Reviewed and negative Physical Exam Vital Signs Date Time Temp Pulse Resp B/P (MAP) Pulse Ox O2 Delivery O2 Flow Rate FiO2 10/08/16 17:22 83 20 145/65 100 Trach Collar 2.0 10/08/16 16:39 78 20 139/77 100 Trach Collar 2.0 10/08/16 15:35 67 20 152/75 100 Trach Collar 6.0 Nebulizer 10/08/16 15:24 73 24 100 Mechanical Ventilator 2.0 10/08/16 15:05 65 10/08/16 14:45 98 Trach Collar 2.0 10/08/16 14:45 98 Trach Collar 2.0 10/08/16 14:15 36.5 70 20 149/72 96 2.0 General Appearance: no apparent distress, + obese Head: normocephalic, atraumatic Eyes: normal inspection, sclerae normal Respiratory/Chest: no respiratory distress, + decreased breath sounds, + crackles, + pertinent finding (coarse lung sounds on trach mask, but no wheezing ) Cardiovascular: regular rate, rhythm, + pertinent finding (b/l UE edema in the hands, nonpitting. Trace non-pitting edema around thoracic outlet opening) Abdomen/GI: non tender, soft, + distended Extremities/Musculoskelatal: no calf tenderness, no pedal edema Neurologic/Psych: alert, + pertinent finding (pt answers questions without issue. Becomes tearful discussing code status) Skin: normal color, warm/dry Diagnostics Laboratory Results Results Past 24 Hours Test 10/08/16 14:53 10/08/16 14:59 Range/Units Influenza Type A (RT-PCR) Neg for Influ A NEG Influenza Type A Antigen Neg for Influ A NEG Influenza Type B Antigen Neg for Influ B NEG Influenza Type B (RT-PCR) Neg for Influ B NEG White Blood Count 6.89 4.8-10.8 K/uL Red Blood Count 3.90 4.2-5.4 M/uL Hemoglobin 11.1 12.0-16.0 g/dL Hematocrit 36.1 37-47 % Mean Corpuscular Volume 92.6 80-100 fL Mean Corpuscular Hemoglobin 28.5 25-34 pg Mean Corpuscular Hemoglobin Concent 30.7 32-36 g/dl Platelet Count 230 130-400 K/uL Mean Platelet Volume 10.1 7.4-10.4 fL Neutrophils (%) (Auto) 51.2 % Lymphocytes (%) (Auto) 37.0 % Monocytes (%) (Auto) 9.6 % Eosinophils (%) (Auto) 1.5 % Basophils (%) (Auto) 0.3 % Neutrophils # (Auto) 3.53 1.4-6.5 K/uL Lymphocytes # (Auto) 2.55 1.2-3.4 K/uL Monocytes # (Auto) 0.66 0.11-0.59 K/uL Eosinophils # (Auto) 0.10 0-0.5 K/uL Basophils # (Auto) 0.02 0-0.2 K/uL RDW Standard Deviation 57.6 36.4-46.3 fL RDW Coefficient of Variation 17.0 11.5-14.5 % Immature Granulocyte % (Auto) 0.4 % Immature Granulocyte # (Auto) 0.03 0.00-0.02 K/uL Nucleated RBC Absolute Count (auto) 0.00 0-0 K/uL Nucleated Red Blood Cells % 0.0 % Sodium Level 131 136-145 mmol/L Potassium Level 4.6 3.5-5.1 mmol/L Chloride Level 95 98-107 mmol/L Carbon Dioxide Level 28 21-32 mmol/L Anion Gap 8.0 3-11 mmol/L Blood Urea Nitrogen 33 7-18 mg/dl Creatinine 0.80 0.60-1.20 mg/dl Est Creatinine Clear Calc Drug Dose 61.9 ml/min Estimated GFR () 87.2 Estimated GFR (Non- 75.2 BUN/Creatinine Ratio 41.5 10-20 Random Glucose 246 70-99 mg/dl Calcium Level 9.3 8.5-10.1 mg/dl Total Bilirubin 0.2 0.2-1 mg/dl Aspartate Amino Transf (AST/SGOT) 62 15-37 U/L Alanine Aminotransferase (ALT/SGPT) 50 12-78 U/L Alkaline Phosphatase 194 45-117 U/L Total Creatine Kinase 110 26-192 U/L Creatine Kinase MB 5.0 0.5-3.6 ng/ml Creatine Kinase MB Ratio 4.5 0-3.0 Troponin I < 0.015 0-0.045 ng/ml Pro-B-Type Natriuretic Peptide 814 0-900 pg/ml Total Protein 8.3 6.4-8.2 gm/dl Albumin 2.5 3.4-5.0 gm/dl Globulin 5.8 2.5-4.0 gm/dl Albumin/Globulin Ratio 0.4 0.9-2 Microbiology Results 10/08/16 Blood Culture, Received Pending 10/08/16 Blood Culture, Received Pending Diagnostic Radiology CXR with aspiration PNA bibasilar Impression Assessment and Plan 71 y/o F who was admitted on 10/08 with PNA PNA: acute on chronic respiratory failure with hypoxia and increasing home O2 reqs Likely related to TF in the setting of quadriplegia. Pt is to be NPO due to poor swallowing mechanism, however she does take sips of water and Mellisa's kisses at times Vanco/aztreonam Monitor on vent settings No COPD exacerbation, but will add nebs to prevent Flu neg Blood cx pending BNP at 814 Trop neg Pt had a speech eval just prior to PEG placement this spring that recommended for NPO status. I do not think this needs re-eval at this time given pt non-compliance and TF status. DM: home lantus dose with SSI A1c pending Chronic UTI with yeast: pt cycles ertapenem and levaquin, due to start levaquin on 10/15 Ongoing fluconazole use Seizure disorder: no new activity Monitor on home meds Quadriplegia: baseline with chronic trach Nutrition: Nutren 2.0, 265cc to gravity over 30min with 600cc water flushes TID @8a, 2p, 8p Nutrition c/s pending Recent intrathecal pump replacement on 10/02 Other: Full code, although pt became tearful when asked this question stating " I don't know what to do". I advised her to think about it and discuss as she needs to and that she would be a full code in the meantime. She was advised to let nursing or physician know if she changes her mind about this. TF as above Lovenox for DVT proph Level of Care Telemetry Resuscitation Status FULL RESUSCITATION VTE Prophylaxis VTE Risk Assessment Done? Y/N: Yes Risk Level: Low
[2016-10-08 18:54] VITALS: BP 142/66; PULSE 79; TEMP 36.5; O2SAT 94
[2016-10-08] MEDS: ALBUT/IPRATROP 3MG/0.5MG NEB 3 ML VIAL INH SCH (19:32)
[2016-10-08 20:00] VITALS: O2SAT 97
[2016-10-08 20:07] LABS: URINE APPEARANCE CLOUDY (CLEAR); URINE BILIRUBIN NEG (NEG); URINE COLOR DK YELLOW; URINE NITRITE NEG (NEG); URINE SPECIFIC GRAVITY 1.026 (1.000-1.030); UROBILINOGEN NEG (NEG)
[2016-10-08 20:09] LABS: MANUAL MICROSCOPIC REQUIRED? NO; REVIEW REQ? NO
[2016-10-08] MEDS ORDERED: ARTIFICIAL TEARS OP SOLN OPB PRN ×2 (20:30)
[2016-10-08] MEDS: ARTIFICIAL TEARS OP OINT 3.5 GM TUBE OPB SCH (21:00)
[2016-10-08] MEDS ORDERED: VANCOMYCIN INJ 600 MG in SODIUM CHLORIDE 0.9% 250ML 250 ML IV SCH (21:00)
[2016-10-08] MEDS ORDERED: IMPACT LIQ 1000 ML BAG PEG SCH (21:00)
[2016-10-08] MEDS: ALBUTEROL HFA 8 GM INHALER INH SCH (21:00)
[2016-10-08] MEDS ORDERED: NURSING VERBAL MED ORDER ONE ×2 (21:45→22:30)
[2016-10-08] MEDS: PENTOSAN POLYSULFATE SODIUM 100 MG CAP PO SCH (22:04)
[2016-10-08] MEDS: LEVETIRACETAM SOLN 500 MG/5 ML UDP PO SCH (22:07)
[2016-10-08] MEDS: GABAPENTIN 250 MG/5 ML 470 ML BTL PO SCH (22:08)
[2016-10-08] MEDS: DIPYRIDAMOLE/ASPIRIN CAP PO SCH (22:09)
[2016-10-08] MEDS: FLUCONAZOLE 100 MG TAB PEG SCH (22:11)
[2016-10-08] MEDS: LACTOBACILLUS ACIDOPHILUS (FLORANEX) TAB PEG SCH (22:12)
[2016-10-08] MEDS ORDERED: ENTERAL FORMULA PEG SCH (22:30)
[2016-10-08] MEDS: ENTERAL FORMULA PEG SCH (22:42)
[2016-10-08] MEDS: INSULIN ASPART 100 UNITS/ML 3 ML PEN SC SCH (22:45)
[2016-10-08] MEDS: INSULIN GLARGINE SOLOSTAR 100 UNITS/ML 3 ML PEN SC SCH (22:46)
[2016-10-08] MEDS: ACETAMINOPHEN 500 MG TAB PO PRN (23:10)
[2016-10-08] MEDS ORDERED: VANCOMYCIN CONSULT ACTIVE PRN (23:30)
--- NOTE | 2016-10-08 23:33 | Pharmacy Progress Note ---
Pharmacy Antibiotic Consult Date of Service: Oct 08, 2016. Pharmacy Dosing Scope Pharmacy is consulted to initiate IV Vancomycin dosing therapy, order appropriate labs and adjust drug dose/frequency. Subjective The patient is a 71 year old female admitted on Oct 08, 2016 at 17:38. Objective Height (Feet): 5 Height (Inches): 0.00 Weight (Kilograms): 79.500 Lab Results (24hrs): Test 10/08/16 14:53 10/08/16 14:59 10/08/16 19:45 10/08/16 20:30 Influenza Type A (RT-PCR) Neg for Influ A (NEG) Influenza Type A Antigen Neg for Influ A (NEG) Influenza Type B Antigen Neg for Influ B (NEG) Influenza Type B (RT-PCR) Neg for Influ B (NEG) White Blood Count 6.89 K/uL (4.8-10.8) Red Blood Count 3.90 M/uL (4.2-5.4) Hemoglobin 11.1 g/dL (12.0-16.0) Hematocrit 36.1 % (37-47) Mean Corpuscular Volume 92.6 fL (80-100) Mean Corpuscular Hemoglobin 28.5 pg (25-34) Mean Corpuscular Hemoglobin Concent 30.7 g/dl (32-36) Platelet Count 230 K/uL (130-400) Mean Platelet Volume 10.1 fL (7.4-10.4) Neutrophils (%) (Auto) 51.2 % Lymphocytes (%) (Auto) 37.0 % Monocytes (%) (Auto) 9.6 % Eosinophils (%) (Auto) 1.5 % Basophils (%) (Auto) 0.3 % Neutrophils # (Auto) 3.53 K/uL (1.4-6.5) Lymphocytes # (Auto) 2.55 K/uL (1.2-3.4) Monocytes # (Auto) 0.66 K/uL (0.11-0.59) Eosinophils # (Auto) 0.10 K/uL (0-0.5) Basophils # (Auto) 0.02 K/uL (0-0.2) RDW Standard Deviation 57.6 fL (36.4-46.3) RDW Coefficient of Variation 17.0 % (11.5-14.5) Immature Granulocyte % (Auto) 0.4 % Immature Granulocyte # (Auto) 0.03 K/uL (0.00-0.02) Nucleated RBC Absolute Count (auto) 0.00 K/uL (0-0) Nucleated Red Blood Cells % 0.0 % Sodium Level 131 mmol/L (136-145) Potassium Level 4.6 mmol/L (3.5-5.1) Chloride Level 95 mmol/L (98-107) Carbon Dioxide Level 28 mmol/L (21-32) Anion Gap 8.0 mmol/L (3-11) Blood Urea Nitrogen 33 mg/dl (7-18) Creatinine 0.80 mg/dl (0.60-1.20) Est Creatinine Clear Calc Drug Dose 61.9 ml/min Estimated GFR () 87.2 Estimated GFR (Non- 75.2 BUN/Creatinine Ratio 41.5 (10-20) Random Glucose 246 mg/dl (70-99) Calcium Level 9.3 mg/dl (8.5-10.1) Total Bilirubin 0.2 mg/dl (0.2-1) Aspartate Amino Transf (AST/SGOT) 62 U/L (15-37) Alanine Aminotransferase (ALT/SGPT) 50 U/L (12-78) Alkaline Phosphatase 194 U/L (45-117) Total Creatine Kinase 110 U/L (26-192) Creatine Kinase MB 5.0 ng/ml (0.5-3.6) Creatine Kinase MB Ratio 4.5 (0-3.0) Troponin I < 0.015 ng/ml (0-0.045) Pro-B-Type Natriuretic Peptide 814 pg/ml (0-900) Total Protein 8.3 gm/dl (6.4-8.2) Albumin 2.5 gm/dl (3.4-5.0) Globulin 5.8 gm/dl (2.5-4.0) Albumin/Globulin Ratio 0.4 (0.9-2) Urine Color DK YELLOW Urine Appearance CLOUDY (CLEAR) Urine pH 5.0 (4.5-7.5) Urine Specific [place] 1.026 (1.000-1.030) Urine Protein 3+ (NEG) Urine Glucose (UA) NEG (NEG) Urine Ketones NEG (NEG) Urine Occult Blood NEG (NEG) Urine Nitrite NEG (NEG) Urine Bilirubin NEG (NEG) Urine Urobilinogen NEG (NEG) Urine Leukocyte Esterase TRACE (NEG) Urine WBC (Auto) 1-5 /hpf (0-5) Urine RBC (Auto) 0-4 /hpf (0-4) Urine Hyaline Casts (Auto) 1-5 /lpf (0-5) Urine Epithelial Cells (Auto) 10-20 /lpf (0-5) Urine Bacteria (Auto) NEG (NEG) Bedside Glucose 178 mg/dl (70-90) Micro Results: Item Value Date Time Blood Culture Received 10/08/16 1530 Blood Pending Blood Culture Received 10/08/16 1556 Blood Pending Recent Pertinent Medications Item Value Date Time Vancomycin HCl 262 ml @ 125 mls/hr 10/08/16 2100 600 mg/Sodium TODAY@2100/IV 10/08/16 2143 Chloride Vancomycin HCl 524 ml @ 200 mls/hr 10/09/16 1400 1200 mg/Sodium Q24H/IV Chloride Vancomycin HCl 1 gm 10/08/16 1635 (Vancomycin 1gm/ NOW STAT/IV 10/08/16 1722 270ml Nss) Assessment & Plan Vancomycin * Loading dose: Vancomycin 1600mg IV x 1 dose (20mg/kg administered in 2 separate doses) * Goal peak level: 30-40mcg/mL * Goal trough level: 15-20mcg/mL * Est CrCl adjusted for quadriplegia ~37mL/min, est half-life ~20hr * Maintenance dosing: Vancomycin 1200mg IV q24h (15mg/kg) * Trough level ordered for: 10/11/16 1400 dose Pharmacy will continue to follow and will adjust dose/frequency as necessary. Thank you
[2016-10-09] VITALS (8 sets, daily range): BP systolic 143–174; BP diastolic 64–75; PULSE 52–79; TEMP 36.4–36.8; O2SAT 92–99; Ht 152.4 cm; Wt 76.2 kg
[2016-10-09] MEDS: AZTREONAM IV 1,000 MG in DEXTROSE 5% 100ML 100 ML IV SCH ×3 (01:55→16:55)
[2016-10-09 05:17] LABS: CREATININE 0.69 mg/dl (0.60-1.20)
[2016-10-09 06:25] LABS: ESTIMATED AVERAGE GLUCOSE 160 mg/dl; HA1C FLAG Normal (Normal)
[2016-10-09 07:54] LABS: BASO % 0.3 %; BASO ABS # 0.02 K/uL (0-0.2); COMPLETE YES; EOS % 1.4 %; HEMATOCRIT 34.3 % (37-47); IG% 0.4 %; LYMPH % 28.4 %; LYMPH ABS # 1.96 K/uL (1.2-3.4); MEAN CELL VOLUME 93.5 fL (80-100); MEAN CORPUSCULAR HEMOGLOBIN 29.2 pg (25-34); MEAN CORPUSCULAR HGB CONC 31.2 g/dl (32-36); MONO % 12.2 %; NEUT % 57.3 %; PLATELET COUNT 225 K/uL (130-400); RED BLOOD COUNT 3.67 M/uL (4.2-5.4)
[2016-10-09] MEDS: ALBUT/IPRATROP 3MG/0.5MG NEB 3 ML VIAL INH SCH ×2 (08:00→11:15)
[2016-10-09] MEDS: LACTOBACILLUS ACIDOPHILUS (FLORANEX) TAB PEG SCH ×3 (08:44→20:36)
[2016-10-09] MEDS: ONDANSETRON 4 MG TAB PO SCH ×3 (08:45→20:37)
[2016-10-09] MEDS: DIPYRIDAMOLE/ASPIRIN CAP PO SCH ×2 (08:45→20:35)
[2016-10-09] MEDS: ALLOPURINOL 100 MG TAB PEG SCH (08:46)
[2016-10-09] MEDS: POLYETHYLENE (MIRALAX) 17 GM PACK PO SCH (08:46)
[2016-10-09] MEDS: LEVETIRACETAM SOLN 500 MG/5 ML UDP PO SCH ×2 (08:46→20:34)
[2016-10-09] MEDS: CLOPIDOGREL BISULFATE 75 MG TAB PEG SCH (08:46)
[2016-10-09] MEDS: AMLODIPINE BESYLATE 5 MG TAB PEG SCH (08:47)
[2016-10-09] MEDS: PENTOSAN POLYSULFATE SODIUM 100 MG CAP PO SCH ×2 (08:47→20:36)
[2016-10-09] MEDS: GABAPENTIN 250 MG/5 ML 470 ML BTL PEG SCH (08:49)
[2016-10-09] MEDS: ESCITALOPRAM OXALATE PEG SCH (08:50)
[2016-10-09] MEDS: INSULIN ASPART 100 UNITS/ML 3 ML PEN SC SCH ×4 (08:52→20:48)
[2016-10-09] MEDS: ENTERAL FORMULA PEG SCH ×3 (08:53→20:39)
[2016-10-09] MEDS ORDERED: LEVOFLOXACIN 250 MG TAB PEG SCH (09:00)
[2016-10-09] MEDS ORDERED: PROPYLENE GLYCOL OPB SCH (09:00)
[2016-10-09] MEDS ORDERED: ERTAPENEM 1 GM ADDVIAL IV SCH (09:00)
[2016-10-09] MEDS ORDERED: LIDODERM (LIDOCAINE) PATCH 5% TD SCH ×2 (09:00→21:00)
[2016-10-09 09:16] LABS: CREATININE 0.75 mg/dl (0.60-1.20); POTASSIUM 5.1 mmol/L (3.5-5.1)
[2016-10-09 09:19] LABS: ALB/GLOB RATIO 0.4 (0.9-2)
--- NOTE | 2016-10-09 11:23 | Medical Consult ---
Consultation Date of Consultation: Oct 09, 2016. Attending Physician: Desi Albert M.D. Reason for Consultation: Possible PNA History of Present Illness Patient is a 71-year-old quadriplegic female well known to myself and the Infectious Diseases Service who presented to the emergency department overall feeling poorly. The patient states she had been slightly short of breath at home, and her caregivers states that she has had some increased secretions at home. She also had been experiencing severe watery diarrhea for approximately 1 week. She had not been noted to have any fevers or chills. She has however been increasing in weight over the past few days. Since admission, the patient has blood cultures pending. Her white blood cell count was 6.89. Her creatinine was 0.80. Her alk-phos was elevated 194, and her AST was elevated at 62. Chest x-ray showed a bibasilar airspace opacities and trace pleural effusions which is new from her previous scan on 07/2016. It was noted that this could represent a developing pneumonia, aspiration pneumonitis, or interstitial edema. She was placed empirically IV vancomycin and aztreonam. She also received a dose of Levaquin in the emergency department. Patient states she overall is feeling poorly still. She had a large, loose bowel movement this morning. Her abdomen was distended this morning prior to her bowel movement. I did discuss this patient with Dr. Trimble as well. Past Medical/Surgical History Medical Problems: (1) Acute renal failure Status: Acute (2) Altered mental status Status: Acute (3) Dehydration Status: Acute (4) Elevated troponin Status: Acute (5) Feeding tube dysfunction Status: Acute (6) Hypotension Status: Acute (7) PNA (pneumonia) Status: Acute (8) Seizure Status: Acute (9) Sepsis Status: Acute (10) Urinary tract infection Status: Acute (11) UTI (urinary tract infection) Status: Acute Medical Problems: (1) Acute and chronic respiratory failure (2) Aspiration pneumonia (3) Chronic obstructive lung disease (4) Chronic respiratory failure (5) Chronic urinary tract infection (6) Dependence on continuous positive airway pressure ventilation (7) ESOPHAGEAL CANDIDITIS (8) leukocytoclastic vasculitis (9) Quadriplegia (10) Respiratory arrest (11) Respiratory failure (12) vent dep Family History Cancer Diabetes mellitus Heart disease Hypertension Lung disease Noncontributory Social History Smoking Status: Never Smoker Alcohol Use: none Drug Use: none Marital Status: Housing Status: lives with family, other Occupation Status: disabled, other Allergies Coded Allergies: Ampicillin (Verified Allergy, Intermediate, RASH, 10/08/16) Cephalexin (Verified Allergy, Intermediate, RASH, 10/08/16) Cephalosporins (Verified Allergy, Intermediate, rash, 10/08/16) Erythromycin (Verified Allergy, Intermediate, RASH, 10/08/16) Nitrofurantoin (Verified Allergy, Intermediate, RASH, 10/08/16) Penicillins (Verified Allergy, Intermediate, RASH, 10/08/16) Linezolid (Verified Allergy, Unknown, UNKN, 10/08/16) Sulfa Antibiotics (Verified Allergy, Unknown, ., 10/08/16) Home Medications Reported Home Medications Medications Dose Route/Sig Max Daily Dose Days Date Category Dose Instructions Relistor (Methylnaltrexone [place]) Unknown Strength Inj Unknown Dose SQ Q2D 10/08/16 Reported Melatonin 1 Mg Cap 1-3 Mg PO HS 10/08/16 Reported TAKE 1-3MG PO DISSOLVABLE HS [Lexapro Oral More] 20 Mg PEG DAILY 10/08/16 Reported TAKE 20MG OF LEXAPRO ORAL SOLUTION 5MG/5ML DAILY VIA PEG TUBE Keppra (Levetiracetam) 100 Mg/Ml More 500 Mg PEG BID 10/08/16 Reported Levaquin (Levofloxacin) 250 Mg Tab 250 Mg GT DAILY 10 10/08/16 Reported PRN DETAIL: ON 28 DAY CYCLE, ALTERNATE WITH IV ANTIBIOTICS SPECIAL MEDICATION DETAIL: ON/OFF SCHEDULE ALTERNATE Q30 WITH IV ABX Lioresal (Baclofen) 10 Mg Tab 10 Mg PEG Q3H PRN 10/08/16 Reported [aggrenox 25mg/250mg] 250 Mg PEG BID 10/08/16 Reported Novolog (Insulin Aspart) 100 Units/Ml Inj 1 Dose SC TID 08/18/16 Reported GIVE PER SLIDING SCALE BS 125 -150 6 UNITS BS 150-200 8 UNITS BS 200-300 10 UNITS IF BS IS ABOUVE 300 CALL DOCTOR Lamictal (Lamotrigine) 25 Mg Tab 150 Mg PEG BID 08/18/16 Reported Lactinex (Lactobacillus Acidophilus) Tab 1 Tab PEG TID 08/18/16 Reported GIVE 1 TAB BY PEG AT 0800, 1130, 1600 Gabapentin 250 Mg/5 Ml More 200 Mg PEG 1600 30 08/10/16 Rx Gabapentin 250 Mg/5 Ml More 100 Mg PEG QAM 30 08/10/16 Rx Bisacodyl 10 Mg Sup 10 Mg DE 5XWK PRN 07/30/16 Reported GIVE AT BEDTIME /MON/TU/SAT//SATURDAY HOLD FOR DIARRHEA Lantus (Insulin Glargine) 100 Unit/Ml Inj 13 Units SC HS 07/30/16 Reported Nutren 2.0 (Nutritional Supplements) 1 Liq Liq 267 Ml PEG TID 07/30/16 Reported Zofran (Ondansetron Hcl) 4 Mg Tab 4 Mg PEG AC PRN 07/30/16 Reported give 30 min ac Systane Balance Restorati (Propylene Glycol (Ophth)) 0.6 % More 1 Appln OPB DAILY 07/30/16 Reported Invanz (Ertapenem Sodium) 1 Gm Inj 1 Gm IV DAILY 30 07/30/16 Reported Avenova with Neutrox (Hypochlorous Acid) 0.01 % More 1 Appln TOP BID 07/30/16 Reported eyelid scrub Ventolin Hfa (Albuterol) 200 Puffs/42513 Mcg Aers 2 Puffs INH BID 07/30/16 Reported Systane Nighttime (White Petrolatum-Mineral Oil) 1 Oin Oin 1 Appln OPB HS 05/27/16 Reported Procrit (Epoetin Biju) 2,000 Units Inj 40,000 Units INJ WK 05/27/16 Reported SATURDAY Xiidra (Lifitegrast) 5 % Gera 1 Drop OPB BID 05/27/16 Reported Miralax (Polyethylene Glycol 3350) 1 Pow Pow 17 Gm PEG DAILY 05/27/16 Reported Gabapentin 600 Mg Tab 600 Mg PEG HS 05/27/16 Reported Elmiron (Pentosan Polysulfate Sodium) 100 Mg Cap 100 Mg PEG BID 05/27/16 Reported Ativan (Lorazepam) 0.5 Mg Tab 0.5 Mg PEG DAILY PRN 12/22/15 Reported Norvasc (Amlodipine Besylate) 2.5 Mg Tab 3.75 Mg PEG DAILY 30 10/20/15 Reported Gentamicin Sulfate/0.9% S (Gentamicin In Saline) 1 Inj Inj 80 Mg INJ WEEKLY 09/26/15 Reported INSTILL INTO BLADDER Systane (Polyethylene Glycol-Propylene) 1 More More 2 Drops OPB BID PRN 06/30/15 Reported Lidoderm Patch 5% (Lidocaine) 1 Ea Tdsy 2 Patch TOP DAILY 06/30/15 Reported APPLY TO RIGHT HIP AND THIGH ON 12 HOURS OFF 12 HOURS Tylenol (Acetaminophen) 500 Mg Tab 1,000 Mg PEG Q6 PRN 02/22/15 Reported Diflucan (Fluconazole) 100 Mg Tab 100 Mg PEG QPM 02/11/15 Reported Plavix (Clopidogrel Bisulfate) 75 Mg Tab 75 Mg PEG DAILY 02/11/15 Reported Buspar (Buspirone Hcl) 15 Mg Tab 7.5 Mg PEG BID 03/20/14 Reported Zyloprim (Allopurinol) 100 Mg Tab 100 Mg PEG QAM 11/05/13 Reported Pyridium (Phenazopyridine HCl) 200 Mg Tab 200 Mg PEG BID PRN 08/27/10 Reported Current Inpatient Medications Current Inpatient Medications Medications (Trade) Dose Ordered Sig/Tasha Route Start Time Stop Time Status Last Admin Dose Admin Ondansetron HCl (Zofran Inj) 4 mg Q6H PRN IV 10/08/16 17:30 11/07/16 17:29 10/08/16 23:35 4 MG Insulin Aspart (novoLOG ASPART) SLIDING SCALE If C... ACHS SC 10/08/16 21:00 11/07/16 20:59 10/09/16 08:52 11 UNITS Glucose (Glucose 40% Gel) 15-30 GRAMS 15 GRAMS... UD PRN PO 10/08/16 17:30 11/07/16 17:29 Glucose (Glucose Chew Tab) 4-8 Tablets 4 Tabl... UD PRN PO 10/08/16 17:30 11/07/16 17:29 Dextrose (Dextrose 50% 50ML Syringe) 25-50ML OF 50% DW IV FOR... UD PRN IV 10/08/16 17:30 11/07/16 17:29 Glucagon (Glucagon Inj) 1 mg UD PRN SQ 10/08/16 17:30 11/07/16 17:29 Acetaminophen (Tylenol Tab) 1,000 mg Q6H PRN PO 10/08/16 17:30 11/07/16 17:29 10/08/16 23:10 1,000 MG Albuterol (Ventolin Hfa Inhaler) 2 puffs BID INH 10/08/16 21:00 11/07/16 20:59 10/08/16 21:00 2 PUFFS Allopurinol (Zyloprim Tab) 100 mg QAM PEG 10/09/16 09:00 11/08/16 08:59 10/09/16 08:46 100 MG Amlodipine Besylate (Norvasc Tab) 3.75 mg DAILY PEG 10/09/16 09:00 11/08/16 08:59 10/09/16 08:47 3.75 MG Baclofen (Lioresal Tab) 10 mg Q3H PRN PEG 10/08/16 17:30 11/07/16 17:29 Bisacodyl (Dulcolax Supp) 10 mg DAILY PRN DE 10/08/16 17:30 11/07/16 17:29 Buspirone HCl (Buspar Tab) 7.5 mg BID PEG 10/08/16 21:00 11/07/16 20:59 10/09/16 08:46 7.5 MG Clopidogrel Bisulfate (plAVix TAB) 75 mg DAILY PEG 10/09/16 09:00 11/08/16 08:59 10/09/16 08:46 75 MG Escitalopram Oxalate (Lexapro Oral Soln) 20 mg QAM PEG 10/09/16 09:00 11/08/16 08:59 10/09/16 08:50 20 MG Fluconazole (Diflucan Tab) 100 mg QPM PEG 10/08/16 21:00 10/18/16 20:59 10/08/16 22:11 100 MG Gabapentin (Neurontin) 100 mg QAM PEG 10/09/16 09:00 11/08/16 08:59 10/09/16 08:49 100 MG Gabapentin (Neurontin) 200 mg 1600 PEG 10/09/16 16:00 11/08/16 15:59 Gabapentin (Neurontin) 600 mg HS PO 10/08/16 21:00 11/07/16 20:59 10/08/16 22:08 600 MG Insulin Glargine (Lantus Solostar Pen) 13 unit HS SC 10/08/16 21:00 11/07/16 20:59 10/08/16 22:46 13 UNIT Lactobacillus Acidophilus (Floranex Tab) 1 tab TID PEG 10/08/16 21:00 11/07/16 20:59 10/09/16 08:44 1 TAB Lamotrigine (Lamictal Tab) 150 mg BID PEG 10/08/16 21:00 11/07/16 20:59 10/09/16 08:45 150 MG Levetiracetam (Keppra Soln) 500 mg BID PO 10/08/16 21:00 11/07/16 20:59 10/09/16 08:46 500 MG Lidocaine (Lidoderm Patch 5%) 2 patch DAILY TD 10/09/16 09:00 11/08/16 08:59 Lorazepam (Ativan Tab) 0.5 mg DAILY PRN PEG 10/08/16 17:30 11/07/16 17:29 Ondansetron HCl (Zofran Tab) 4 mg AC PO 10/09/16 07:00 11/08/16 07:59 10/09/16 08:45 4 MG Phenazopyridine HCl (Pyridium Tab) 200 mg BID PRN PO 10/08/16 17:30 11/07/16 17:29 Epoetin Biju (Procrit Inj) 40,000 units Fr@0900 SC 10/12/16 09:00 11/11/16 08:59 Miscellaneous Information (Order Awaiting Action) 1 ea QS N/A 10/08/16 21:00 11/07/16 20:59 Miscellaneous Information (Order Awaiting Action) 1 ea QS N/A 10/08/16 21:00 11/07/16 20:59 10/08/16 21:00 1 EA Miscellaneous Information (Order Awaiting Action) 1 ea QS N/A 10/08/16 21:00 11/07/16 20:59 10/08/16 21:00 1 EA Pentosan Polysulfate Sodium (Elmiron) 100 mg BID PO 10/08/16 21:00 11/07/16 20:59 10/09/16 08:47 100 MG Polyethylene (Miralax Powder Packet) 17 gm DAILY PO 10/09/16 09:00 11/08/16 08:59 10/09/16 08:46 17 GM Artificial Tears (Artificial Tears) 2 drops BID PRN OPB 10/08/16 20:30 11/07/16 20:29 Artificial Tears (Lacri-Lube Oph Oint) 1 appln HS OPB 10/08/16 21:00 11/07/16 20:59 Dipyridamole/ Aspirin (Aggrenox 200MG/ 25MG Cap) 1 cap BID PO 10/08/16 21:00 11/07/16 20:59 10/09/16 08:45 1 CAP Aztreonam 1000 mg/ Dextrose 110 ml @ 100 mls/hr Q8H IV 10/09/16 02:00 10/16/16 01:59 10/09/16 01:55 100 MLS/HR Albuterol/ Ipratropium (Duoneb) 3 ml QIDR INH 10/08/16 20:00 11/07/16 19:59 Miscellaneous (Remove Lidoderm Patch) 1 ea DAILY@2100 N/A 10/08/16 21:00 11/07/16 20:59 10/08/16 21:00 1 EA Sterile Water (Tube Feeding Water Flush) 1 ea TID@0830,1430,2130 PEG 10/09/16 23:00 11/08/16 22:59 Melatonin (Melatonex) 9 mg HS PO 10/09/16 23:00 11/08/16 22:59 10/08/16 23:07 9 MG Non-Formulary Medication (Non-Formulary Patient'S Own Med) 1 ea TID@0800,1400,2100 PEG 10/08/16 22:30 11/07/16 22:29 10/09/16 08:53 1 EA Vancomycin HCl (Consult) 1 ea UD PRN N/A 10/08/16 23:30 11/07/16 23:29 Heparin Sodium (Porcine) (Heparin 100 Unit/ml 5ml Flush) 5 ml PRN PRN IV 10/09/16 00:45 11/08/16 00:44 Vancomycin HCl 1250 mg/Sodium Chloride 275 ml @ 125 mls/hr TODAY@1200 ONCE IV 10/09/16 12:00 10/09/16 14:11 Review of Systems Constitutional: + fatigue, + problem reported (feeling poorly at home) Eyes: No worsening of vision ENT: No hearing loss Respiratory: + shortness of breath, + problem reported (tracheostomy, chronically ventilated), No cough Cardiovascular: No chest pain Abdomen: + problem reported (distension, diarrhea at home) Musculoskeletal: + problem reported (quadriplegic) Genitourinary - Female: + problem reported ([place] indwelling Staples) Integumentary: No rash, No itch, No new/changing skin lesions Physical Exam Date Time Temp Pulse Resp B/P (MAP) Pulse Ox O2 Delivery O2 Flow Rate FiO2 10/09/16 08:22 36.8 74 18 148/71 (96) 95 Trach Collar 10/09/16 08:00 Mechanical Ventilator 2.0 10/09/16 04:00 36.6 75 20 145/75 (98) 96 Trach Collar 10/09/16 04:00 Mechanical Ventilator 2.0 10/09/16 00:21 36.4 73 18 145/67 (93) 92 Venturi Mask 10/08/16 23:59 Mechanical Ventilator 2.0 10/08/16 20:00 97 Mechanical Ventilator 2.0 10/08/16 18:54 36.5 79 17 142/66 (91) 94 2.0 10/08/16 18:20 74 20 149/60 98 Trach Collar 10/08/16 18:00 100 Mechanical Ventilator 2.0 10/08/16 17:22 83 20 145/65 100 Trach Collar 2.0 10/08/16 16:39 78 20 139/77 100 Trach Collar 2.0 10/08/16 15:35 67 20 152/75 100 Trach Collar 6.0 Nebulizer 10/08/16 15:24 73 24 100 Mechanical Ventilator 2.0 10/08/16 15:05 65 10/08/16 14:45 98 Trach Collar 2.0 10/08/16 14:45 98 Trach Collar 2.0 10/08/16 14:15 36.5 70 20 149/72 96 2.0 General Appearance: WD/WN, + mild distress Head: normocephalic, atraumatic Eyes: normal inspection, sclerae normal ENT: hearing grossly normal Neck: + pertinent finding (tracheostomy, ventilated) Respiratory/Chest: chest non-tender, lungs clear, no respiratory distress, no accessory muscle use, + pertinent finding (ventilated) Cardiovascular: regular rate, rhythm Abdomen/GI: normal bowel sounds, + distended Extremities/Musculoskelatal: + pertinent finding (quadriplegic) Neurologic/Psych: alert, + depressed affect Skin: normal color, warm/dry, no rash Laboratory Results SINGLE VIEW CHEST CLINICAL HISTORY: Dyspnea. Increased secretions. FINDINGS: An AP, portable, upright chest radiograph is compared to study dated 08/02/2016. Correlation with chest CT dated 05/28/2016. The examination is degraded by portable technique and patient rotation. A tracheostomy, a right subclavian central venous infusion port, and a left subclavian central venous catheter are unchanged in position. The heart is enlarged. There is pulmonary vascular congestion. Bibasilar airspace opacities are identified. Small pleural effusions are present. No pneumothorax is seen. The skeletal structures are osteopenic. The bony thorax is grossly intact. IMPRESSION: 1. Cardiomegaly with pulmonary vascular congestion. 2. There are bibasilar airspace opacities and trace pleural effusions. This is new from 08/02/2016, and could represent developing pneumonia, aspiration pneumonitis, and/or a component of interstitial edema. Clinical correlation will be required. 3. Stable lines and tubes. Item Value Date Time Blood Culture Received 10/08/16 1556 Blood Pending Blood Culture Received 10/08/16 1530 Blood Pending Last 24 Hours Test 10/08/16 14:53 10/08/16 14:59 10/08/16 19:45 10/08/16 20:30 Influenza Type A (RT-PCR) Neg for Influ A Influenza Type A Antigen Neg for Influ A Influenza Type B Antigen Neg for Influ B Influenza Type B (RT-PCR) Neg for Influ B White Blood Count 6.89 K/uL Red Blood Count 3.90 M/uL Hemoglobin 11.1 g/dL Hematocrit 36.1 % Mean Corpuscular Volume 92.6 fL Mean Corpuscular Hemoglobin 28.5 pg Mean Corpuscular Hemoglobin Concent 30.7 g/dl Platelet Count 230 K/uL Mean Platelet Volume 10.1 fL Neutrophils (%) (Auto) 51.2 % Lymphocytes (%) (Auto) 37.0 % Monocytes (%) (Auto) 9.6 % Eosinophils (%) (Auto) 1.5 % Basophils (%) (Auto) 0.3 % Neutrophils # (Auto) 3.53 K/uL Lymphocytes # (Auto) 2.55 K/uL Monocytes # (Auto) 0.66 K/uL Eosinophils # (Auto) 0.10 K/uL Basophils # (Auto) 0.02 K/uL RDW Standard Deviation 57.6 fL RDW Coefficient of Variation 17.0 % Immature Granulocyte % (Auto) 0.4 % Immature Granulocyte # (Auto) 0.03 K/uL Nucleated RBC Absolute Count (auto) 0.00 K/uL Nucleated Red Blood Cells % 0.0 % Sodium Level 131 mmol/L Potassium Level 4.6 mmol/L Chloride Level 95 mmol/L Carbon Dioxide Level 28 mmol/L Anion Gap 8.0 mmol/L Blood Urea Nitrogen 33 mg/dl Creatinine 0.80 mg/dl Est Creatinine Clear Calc Drug Dose 61.9 ml/min Estimated GFR () 87.2 Estimated GFR (Non- 75.2 BUN/Creatinine Ratio 41.5 Random Glucose 246 mg/dl Calcium Level 9.3 mg/dl Total Bilirubin 0.2 mg/dl Aspartate Amino Transf (AST/SGOT) 62 U/L Alanine Aminotransferase (ALT/SGPT) 50 U/L Alkaline Phosphatase 194 U/L Total Creatine Kinase 110 U/L Creatine Kinase MB 5.0 ng/ml Creatine Kinase MB Ratio 4.5 Troponin I < 0.015 ng/ml Pro-B-Type Natriuretic Peptide 814 pg/ml Total Protein 8.3 gm/dl Albumin 2.5 gm/dl Globulin 5.8 gm/dl Albumin/Globulin Ratio 0.4 Urine Color DK YELLOW Urine Appearance CLOUDY Urine pH 5.0 Urine Specific [place] 1.026 Urine Protein 3+ Urine Glucose (UA) NEG Urine Ketones NEG Urine Occult Blood NEG Urine Nitrite NEG Urine Bilirubin NEG Urine Urobilinogen NEG Urine Leukocyte Esterase TRACE Urine WBC (Auto) 1-5 /hpf Urine RBC (Auto) 0-4 /hpf Urine Hyaline Casts (Auto) 1-5 /lpf Urine Epithelial Cells (Auto) 10-20 /lpf Urine Bacteria (Auto) NEG Bedside Glucose 178 mg/dl Test 10/09/16 04:35 10/09/16 06:53 10/09/16 08:42 White Blood Count 6.90 K/uL Red Blood Count 3.67 M/uL Hemoglobin 10.7 g/dL Hematocrit 34.3 % Mean Corpuscular Volume 93.5 fL Mean Corpuscular Hemoglobin 29.2 pg Mean Corpuscular Hemoglobin Concent 31.2 g/dl Platelet Count 225 K/uL Mean Platelet Volume 10.0 fL Neutrophils (%) (Auto) 57.3 % Lymphocytes (%) (Auto) 28.4 % Monocytes (%) (Auto) 12.2 % Eosinophils (%) (Auto) 1.4 % Basophils (%) (Auto) 0.3 % Neutrophils # (Auto) 3.95 K/uL Lymphocytes # (Auto) 1.96 K/uL Monocytes # (Auto) 0.84 K/uL Eosinophils # (Auto) 0.10 K/uL Basophils # (Auto) 0.02 K/uL RDW Standard Deviation 57.2 fL RDW Coefficient of Variation 16.8 % Immature Granulocyte % (Auto) 0.4 % Immature Granulocyte # (Auto) 0.03 K/uL Creatinine 0.69 mg/dl 0.75 mg/dl Est Creatinine Clear Calc Drug Dose 71.8 ml/min 65.1 ml/min Estimated GFR () 102.9 94.3 Estimated GFR (Non- 88.8 81.3 Estimated Average Glucose 160 mg/dl Hemoglobin A1c 7.2 % Bedside Glucose 159 mg/dl Sodium Level 133 mmol/L Potassium Level 5.1 mmol/L Chloride Level 97 mmol/L Carbon Dioxide Level 30 mmol/L Anion Gap 6.0 mmol/L Blood Urea Nitrogen 38 mg/dl BUN/Creatinine Ratio 51.0 Random Glucose 148 mg/dl Total Bilirubin 0.2 mg/dl Aspartate Amino Transf (AST/SGOT) 58 U/L Alanine Aminotransferase (ALT/SGPT) 52 U/L Alkaline Phosphatase 189 U/L Total Protein 8.3 gm/dl Albumin 2.4 gm/dl Globulin 5.9 gm/dl Albumin/Globulin Ratio 0.4 Assessment & Plan Quadriplegic patient with history of recurrent UTI, recurrent pna, and now with possible bibasilar pneumonia versus pneumonitis along with severe diarrhea and abdominal distention. She is currently on IV Aztreonam and Vancomycin, which after discussion with pharmacy, is appropriate for now pending further workup. She was on IV Ertapenem prior to admission, so anaerobic infection seems unlikely. Will however check C. Diff with recent watery stools. We will follow. Case reviewed and agree with above assessment.
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
[2016-10-09] MEDS ORDERED: VANCOMYCIN INJ 1,250 MG in SODIUM CHLORIDE 0.9% 250ML 250 ML IV ONE (12:00)
[2016-10-09] MEDS ORDERED: NURSING VERBAL MED ORDER ONE ×3 (12:00→18:00)
[2016-10-09 13:02] LABS: CALCIUM 9.3 mg/dl (8.5-10.1)
[2016-10-09] MEDS: ACETAMINOPHEN 500 MG TAB PO PRN ×2 (13:11→22:02)
[2016-10-09] MEDS ORDERED: ALBUT/IPRATROP 3MG/0.5MG NEB 3 ML VIAL INH PRN (14:00)
[2016-10-09] MEDS ORDERED: VANCOMYCIN INJ 1,200 MG in SODIUM CHLORIDE 0.9% 500ML 500 ML IV SCH (14:00)
[2016-10-09] MEDS ORDERED: GABAPENTIN 250 MG/5 ML 470 ML BTL PEG SCH (16:00)
[2016-10-09] MEDS: TUBE FEEDING WATER FLUSH PEG SCH (16:55)
[2016-10-09] MEDS: ALBUTEROL HFA 8 GM INHALER INH SCH ×2 (20:07→20:44)
[2016-10-09] MEDS: FLUCONAZOLE 100 MG TAB PEG SCH (20:36)
[2016-10-09] MEDS: ARTIFICIAL TEARS OP OINT 3.5 GM TUBE OPB SCH (20:38)
[2016-10-09] MEDS: INSULIN GLARGINE SOLOSTAR 100 UNITS/ML 3 ML PEN SC SCH (20:49)
[2016-10-09] MEDS: GABAPENTIN 250 MG/5 ML 470 ML BTL PO SCH (20:56)
[2016-10-09] MEDS ORDERED: TUBE FEEDING WATER FLUSH PEG SCH (23:00)
[2016-10-10] MEDS: TUBE FEEDING WATER FLUSH PEG SCH ×3 (00:05→12:47)
[2016-10-10] MEDS: AZTREONAM IV 1,000 MG in DEXTROSE 5% 100ML 100 ML IV SCH ×2 (01:29→09:55)
[2016-10-10 04:00] VITALS: BP 150/70; PULSE 80; TEMP 36.8; O2SAT 92
[2016-10-10 05:54] LABS: HEMATOCRIT 35.2 % (37-47); MEAN CELL VOLUME 93.4 fL (80-100); MEAN CORPUSCULAR HEMOGLOBIN 28.6 pg (25-34); MEAN CORPUSCULAR HGB CONC 30.7 g/dl (32-36); MEAN PLATELET VOLUME 9.6 fL (7.4-10.4); PLATELET COUNT 250 K/uL (130-400); RED BLOOD COUNT 3.77 M/uL (4.2-5.4); WHITE BLOOD COUNT 6.81 K/uL (4.8-10.8)
[2016-10-10 06:29] LABS: BUN/CREATININE RATIO 53.7 (10-20); CALCIUM 8.8 mg/dl (8.5-10.1); CREATININE 0.71 mg/dl (0.60-1.20); POTASSIUM 4.8 mmol/L (3.5-5.1)
[2016-10-10 06:32] LABS: ALB/GLOB RATIO 0.4 (0.9-2)
[2016-10-10 07:50] VITALS: BP 160/66; PULSE 81; TEMP 36.9; O2SAT 91
[2016-10-10 08:00] VITALS: O2SAT 91
[2016-10-10] MEDS: POLYETHYLENE (MIRALAX) 17 GM PACK PO SCH (08:10)
[2016-10-10] MEDS: DIPYRIDAMOLE/ASPIRIN CAP PO SCH (08:11)
[2016-10-10] MEDS: PENTOSAN POLYSULFATE SODIUM 100 MG CAP PO SCH (08:11)
[2016-10-10] MEDS: AMLODIPINE BESYLATE 5 MG TAB PEG SCH (08:12)
[2016-10-10] MEDS: LACTOBACILLUS ACIDOPHILUS (FLORANEX) TAB PEG SCH ×2 (08:12→13:47)
[2016-10-10] MEDS: CLOPIDOGREL BISULFATE 75 MG TAB PEG SCH (08:12)
[2016-10-10] MEDS: ALLOPURINOL 100 MG TAB PEG SCH (08:12)
[2016-10-10] MEDS: ONDANSETRON 4 MG TAB PO SCH ×2 (08:12→13:46)
[2016-10-10] MEDS: LEVETIRACETAM SOLN 500 MG/5 ML UDP PO SCH (08:13)
[2016-10-10] MEDS: ESCITALOPRAM OXALATE PEG SCH (08:13)
[2016-10-10] MEDS: GABAPENTIN 250 MG/5 ML 470 ML BTL PEG SCH (08:15)
[2016-10-10] MEDS: ENTERAL FORMULA PEG SCH ×2 (08:16→13:47)
[2016-10-10] MEDS: INSULIN ASPART 100 UNITS/ML 3 ML PEN SC SCH ×2 (08:23→13:52)
[2016-10-10] MEDS: ALBUTEROL HFA 8 GM INHALER INH SCH (08:23)
--- NOTE | 2016-10-10 10:29 | Pharmacy Progress Note ---
Pharmacy Abx Dose Progress Nt Date of Service Oct 10, 2016. Pharmacy Dosing Scope The patient is currently receiving the following antimicrobial agents: Vancomycin 1250 mg IV x1 10/09 @ 1205 (~18 hours after loading dose) Aztreonam 1 g IV q8h Levofloxacin 750 mg IV x1 10/08 in ED Objective Height (Feet): 5 Height (Inches): 0.00 Weight (Kilograms): 76.200 Vital Signs (Past 12Hrs) Vital Signs Past 12 Hours Date Time Temp Pulse Resp B/P (MAP) Pulse Ox O2 Delivery O2 Flow Rate FiO2 10/10/16 08:00 91 Trach Collar 2.0 10/10/16 07:50 36.9 81 20 160/66 (97) 91 Trach Collar 10/10/16 04:00 92 Mechanical Ventilator 2.0 10/10/16 04:00 36.8 80 16 150/70 (96) 92 Mechanical Ventilator 2.0 10/09/16 23:59 97 Mechanical Ventilator 2.0 10/09/16 23:25 36.6 79 20 147/66 (93) 97 Mechanical Ventilator Lab Results (24Hrs) Laboratory Tests (24 Hours) Test 10/10/16 04:40 White Blood Count 6.81 K/uL (4.8-10.8) Micro Results Date/Time Source Procedure Growth Status 10/08/16 15:56 Blood Blood Culture - Preliminary NO GROWTH TO DATE. Resulted 10/08/16 15:30 Blood Blood Culture - Preliminary NO GROWTH TO DATE. Resulted 10/09/16 19:40 Nasal MRSA DNA Surveillance Screen - Final Specimen Negative for MRSA by DNA Probe Complete 10/09/16 11:10 Stool C.difficile Toxin B Gene (PCR) - Final No C. difficile toxin B gene detected Complete Risk Factors for Resistance * Hospitalization for 48 hours or more within the past 90 days * History of infection with a multidrug-resistant organism: Acinetobacter, Stenotrophomonas, Morganella * Antimicrobial use within the last 90 days: rotates ertapenem and levofloxacin monthly for chronic UTI. Was on ertapenem prior to this admission. Assessment & Plan Assessment * 71 year old female with history of quadriplegia and chronic UTI (on chronic antibiotic therapy) receiving aztreonam, vancomycin for treatment of pneumonia ( vs. aspiration pneumonitis vs. interstitial edema per chest x-ray) * Day # 3 of antimicrobial therapy * Patient was receiving ertapenem prior to admission. Therefore this may either not be a true PNA or it will likely be due to an organism resistant to or not covered by ertapenem * Current regimen does not have anaerobic coverage, but this is likely OK as anaerobic infection is less likely because the patient was receiving ertapenem prior to admission for chronic UTI. * Low threshold to add/modify therapy as patient has had some unusual organisms isolated from previous cultures * ID following Vancomycin * Goal trough 15-20 mcg/mL * Random level obtained ~17 hours after 1250 mg dose is supratherapeutic at 25.3 mcg/mL. Would therefore expect that a dose of 1250 mg IV q18h would be significantly too high (especially as more accumulation would occur because this level was drawn prior to steady state) * SCr stable - OK to schedule dose * Will decrease to 1000 mg IV q24h, starting 28 hours after the previous 1250 mg dose (and 12 hours after the supratherapeutic trough) * Trough prior to the 3rd overall dose. This will be before steady state. Plan Vancomycin IV * 1000 mg IV q24h * Trough 10/12 @ 1530 Pharmacy will continue to follow and will adjust dose/frequency as necessary. Thank you.
--- NOTE | 2016-10-10 11:53 | Infectious Disease Progress Nt ---
Progress Note Date of Service Oct 10, 2016. Subjective Pt evaluation today including: conversation w/ patient, physical exam, chart review, lab review, review of studies, conversation w/ showroom sales consultant, review of inpatient medication list WBC count this morning was 6.81. Creatinine was 0.71. C. diff toxin was negative. MRSA nasal swab was negative. Patient has been afebrile. She states that she is feeling slightly improved. She has not had increased drainage from her tracheostomy. She had 4 bowel movements yesterday but has not moved her bowels yet today. I did discuss this patient with Dr. Trimble. All Other Systems: Reviewed and Negative Medications Current Inpatient Medications Medications (Trade) Dose Ordered Sig/[place] Route Start Time Stop Time Status Last Admin Dose Admin Ondansetron HCl (Zofran Inj) 4 mg Q6H PRN IV 10/08/16 17:30 11/07/16 17:29 10/08/16 23:35 4 MG Glucose (Glucose 40% Gel) 15-30 GRAMS 15 GRAMS... UD PRN PO 10/08/16 17:30 11/07/16 17:29 Glucose (Glucose Chew Tab) 4-8 Tablets 4 Tabl... UD PRN PO 10/08/16 17:30 11/07/16 17:29 Dextrose (Dextrose 50% 50ML Syringe) 25-50ML OF 50% DW IV FOR... UD PRN IV 10/08/16 17:30 11/07/16 17:29 Glucagon (Glucagon Inj) 1 mg UD PRN SQ 10/08/16 17:30 11/07/16 17:29 Acetaminophen (Tylenol Tab) 1,000 mg Q6H PRN PO 10/08/16 17:30 11/07/16 17:29 10/09/16 22:02 1,000 MG Albuterol (Ventolin Hfa Inhaler) 2 puffs BID INH 10/08/16 21:00 11/07/16 20:59 10/10/16 08:23 2 PUFFS Allopurinol (Zyloprim Tab) 100 mg QAM PEG 10/09/16 09:00 11/08/16 08:59 10/10/16 08:12 100 MG Amlodipine Besylate (Norvasc Tab) 3.75 mg DAILY PEG 10/09/16 09:00 11/08/16 08:59 10/10/16 08:12 3.75 MG Baclofen (Lioresal Tab) 10 mg Q3H PRN PEG 10/08/16 17:30 11/07/16 17:29 Bisacodyl (Dulcolax Supp) 10 mg DAILY PRN [place] 10/08/16 17:30 11/07/16 17:29 Buspirone HCl (Buspar Tab) 7.5 mg BID PEG 10/08/16 21:00 11/07/16 20:59 10/10/16 08:12 7.5 MG Clopidogrel Bisulfate (plAVix TAB) 75 mg DAILY PEG 10/09/16 09:00 11/08/16 08:59 10/10/16 08:12 75 MG Escitalopram Oxalate (Lexapro Oral Soln) 20 mg QAM PEG 10/09/16 09:00 11/08/16 08:59 10/10/16 08:13 20 MG Fluconazole (Diflucan Tab) 100 mg QPM PEG 10/08/16 21:00 10/18/16 20:59 10/09/16 20:36 100 MG Gabapentin (Neurontin) 100 mg QAM PEG 10/09/16 09:00 11/08/16 08:59 10/10/16 08:15 100 MG Gabapentin (Neurontin) 200 mg 1600 PEG 10/09/16 16:00 11/08/16 15:59 10/09/16 16:56 200 MG Gabapentin (Neurontin) 600 mg HS PO 10/08/16 21:00 11/07/16 20:59 10/09/16 20:56 600 MG Insulin Glargine (Lantus Solostar Pen) 13 unit HS SC 10/08/16 21:00 11/07/16 20:59 10/09/16 20:49 13 UNIT Lactobacillus Acidophilus (Floranex Tab) 1 tab TID PEG 10/08/16 21:00 11/07/16 20:59 10/10/16 08:12 1 TAB Lamotrigine (Lamictal Tab) 150 mg BID PEG 10/08/16 21:00 11/07/16 20:59 10/10/16 08:13 150 MG Levetiracetam (Keppra Soln) 500 mg BID PO 10/08/16 21:00 7/26/17 20:59 10/10/16 08:13 500 MG Lorazepam (Ativan Tab) 0.5 mg DAILY PRN PEG 10/08/16 17:30 11/07/16 17:29 Phenazopyridine HCl (Pyridium Tab) 200 mg BID PRN PO 10/08/16 17:30 11/07/16 17:29 Epoetin Biju (Procrit Inj) 40,000 units Fr@0900 SC 10/12/16 09:00 11/11/16 08:59 Miscellaneous Information (Order Awaiting Action) 1 ea QS N/A 10/08/16 21:00 11/07/16 20:59 Miscellaneous Information (Order Awaiting Action) 1 ea QS N/A 10/08/16 21:00 11/07/16 20:59 10/08/16 21:00 1 EA Miscellaneous Information (Order Awaiting Action) 1 ea QS N/A 10/08/16 21:00 11/07/16 20:59 10/08/16 21:00 1 EA Pentosan Polysulfate Sodium (Elmiron) 100 mg BID PO 10/08/16 21:00 11/07/16 20:59 10/10/16 08:11 100 MG Polyethylene (Miralax Powder Packet) 17 gm DAILY PO 10/09/16 09:00 11/08/16 08:59 10/09/16 08:46 17 GM Artificial Tears (Artificial Tears) 2 drops BID PRN OPB 10/08/16 20:30 11/07/16 20:29 Artificial Tears (Lacri-Lube Oph Oint) 1 appln HS OPB 10/08/16 21:00 11/07/16 20:59 Dipyridamole/ Aspirin (Aggrenox 200MG/ 25MG Cap) 1 cap BID PO 10/08/16 21:00 11/07/16 20:59 10/10/16 08:11 1 CAP Aztreonam 1000 mg/ Dextrose 110 ml @ 100 mls/hr Q8H IV 10/09/16 02:00 10/16/16 01:59 10/10/16 09:55 100 MLS/HR Melatonin (Melatonex) 9 mg HS PO 10/09/16 23:00 11/08/16 22:59 10/09/16 22:02 9 MG Non-Formulary Medication (Non-Formulary Patient'S Own Med) 1 ea TID@0800,1400,2100 PEG 10/08/16 22:30 11/07/16 22:29 10/10/16 08:16 1 EA Vancomycin HCl (Consult) 1 ea UD PRN N/A 10/08/16 23:30 11/07/16 23:29 Heparin Sodium (Porcine) (Heparin 100 Unit/ml 5ml Flush) 5 ml PRN PRN IV 10/09/16 00:45 11/08/16 00:44 Lidocaine (Lidoderm Patch 5%) 2 patch DAILY@2100 TD 10/09/16 21:00 11/08/16 20:59 10/09/16 20:40 2 PATCH Miscellaneous (Remove Lidoderm Patch) 1 ea DAILY@0900 N/A 10/10/16 09:00 11/09/16 08:59 10/10/16 08:23 1 EA Albuterol/ Ipratropium (Duoneb) 3 ml Q2R PRN INH 10/09/16 14:00 11/07/16 19:59 Sterile Water (Tube Feeding Water Flush) 1 ea Q6H PEG 10/09/16 18:00 11/08/16 17:59 10/10/16 06:01 1 EA Insulin Aspart (novoLOG ASPART) SLIDING SCALE If C... 0800,1400,2100 SC 10/09/16 21:00 11/08/16 20:59 10/10/16 08:23 11 UNITS Ondansetron HCl (Zofran Tab) 4 mg 0800,1400,2100 PO 10/09/16 21:00 11/08/16 20:59 10/10/16 08:12 4 MG Vancomycin HCl 1000 mg/Sodium Chloride 270 ml @ 125 mls/hr DAILY@1600 IV 10/10/16 16:00 10/15/16 15:59 Objective Vital Signs Date Time Temp Pulse Resp B/P (MAP) Pulse Ox O2 Delivery O2 Flow Rate FiO2 10/10/16 08:00 91 Trach Collar 2.0 10/10/16 07:50 36.9 81 20 160/66 (97) 91 Trach Collar 10/10/16 04:00 92 Mechanical Ventilator 2.0 10/10/16 04:00 36.8 80 16 150/70 (96) 92 Mechanical Ventilator 2.0 10/09/16 23:59 97 Mechanical Ventilator 2.0 10/09/16 23:25 36.6 79 20 147/66 (93) 97 Mechanical Ventilator 10/09/16 20:00 Mechanical Ventilator 2.0 10/09/16 18:43 36.5 71 26 143/64 (90) 99 Trach Collar 10/09/16 16:00 Mechanical Ventilator 2.0 10/09/16 15:16 36.5 70 23 164/64 (97) 98 Trach Collar 10/09/16 12:00 Mechanical Ventilator 2.0 10/09/16 11:59 36.8 52 20 174/71 (105) 92 Trach Collar Physical Exam General Appearance: WD/WN, no apparent distress Eyes: normal inspection, sclerae normal ENT: hearing grossly normal Neck: + pertinent finding (tracheostomy in place) Respiratory/Chest: lungs clear, no respiratory distress, no accessory muscle use, + pertinent finding (ventilated) Cardiovascular: + tachycardia Abdomen: + abnormal bowel sounds (hypoactive), + distended (moderately) Extremities: + pertinent finding (quadriplegic) Neurologic/Psychiatric: alert, normal mood/affect Skin: normal color, warm/dry, no rash Laboratory Results Item Value Date Time MRSA DNA Surveillance Screen - Final Complete 10/09/16 1940 Nasal Specimen Negative for MRSA by DNA Probe C.difficile Toxin B Gene (PCR) - Final Complete 10/09/16 1110 Stool No C. difficile toxin B gene detected Blood Culture - Preliminary Resulted 10/08/16 1556 Blood NO GROWTH TO DATE. Blood Culture - Preliminary Resulted 10/08/16 1530 Blood NO GROWTH TO DATE. Last 24 Hours Test 10/09/16 16:23 10/09/16 20:30 10/10/16 04:40 Bedside Glucose 240 mg/dl 115 mg/dl White Blood Count 6.81 K/uL Red Blood Count 3.77 M/uL Hemoglobin 10.8 g/dL Hematocrit 35.2 % Mean Corpuscular Volume 93.4 fL Mean Corpuscular Hemoglobin 28.6 pg Mean Corpuscular Hemoglobin Concent 30.7 g/dl RDW Standard Deviation 57.6 fL RDW Coefficient of Variation 16.7 % Platelet Count 250 K/uL Mean Platelet Volume 9.6 fL Nucleated RBC Absolute Count (auto) 0.02 K/uL Nucleated Red Blood Cells % 0.4 % Sodium Level 133 mmol/L Potassium Level 4.8 mmol/L Chloride Level 98 mmol/L Carbon Dioxide Level 31 mmol/L Anion Gap 4.0 mmol/L Blood Urea Nitrogen 38 mg/dl Creatinine 0.71 mg/dl Est Creatinine Clear Calc Drug Dose 68.7 ml/min Estimated GFR () 100.7 Estimated GFR (Non- 86.9 BUN/Creatinine Ratio 53.7 Random Glucose 142 mg/dl Calcium Level 8.8 mg/dl Total Bilirubin 0.2 mg/dl Aspartate Amino Transf (AST/SGOT) 54 U/L Alanine Aminotransferase (ALT/SGPT) 51 U/L Alkaline Phosphatase 186 U/L Total Protein 7.9 gm/dl Albumin 2.3 gm/dl Globulin 5.6 gm/dl Albumin/Globulin Ratio 0.4 Random Vancomycin Level 25.3 mcg/ml Assessment and Plan Quadriplegic patient with history of recurrent UTI, recurrent pna, and now with possible bibasilar pneumonia versus pneumonitis along with severe diarrhea and abdominal distention. She is currently on IV Aztreonam and Vancomycin and appears to be improving, but I am still not completely convinced of pulmonary infection. Will check procalcitonin today. I feel that if further concern continues for pulmonary infection, could transition to PO Levaquin and consider addition of PO Doxycycline, but otherwise would transition back to her previous outpatient regimen upon D/C. Also, if abdominal distention continues, would also consider abdominal imaging. Will discuss with primary team. Case reviewed and agree with above assessment
[2016-10-10 12:00] VITALS: O2SAT 92
--- NOTE | 2016-10-10 12:10 | DIAGNOSTIC IMAGING REPORT ---
CT OF THE CHEST WITHOUT IV CONTRAST CLINICAL HISTORY: Abnormal chest radiograph. Pneumonia. COMPARISON STUDY: Chest radiograph October 08, 2016 CT DOSE: 502.01 mGycm TECHNIQUE: Axial images of the chest were obtained without IV contrast. Images were reviewed in the axial, sagittal, and coronal planes. IV contrast was not administered for this examination. FINDINGS: A tracheostomy tube is in place. There is no central obstructing mass. Multifocal mucus plugging within the lower lobes is noted. This has improved since exam of May 28, [address] of June 19, 2016. Bilateral lower lobe opacities, left greater than right, with volume loss of improved. There are scattered groundglass opacities with more nodular opacities which have also improved since abdominal CT of June 19, 2016. There is no pneumothorax. There is no cavitation. There is no significant pleural effusion. An intrathecal catheter is noted. Visualized portions of the upper abdomen demonstrate hepatomegaly and probable fatty infiltration of the liver. Gastrostomy tube is partially imaged. The heart is moderately enlarged. There is moderate coronary artery calcifications. Several mildly enlarged mediastinal lymph nodes are unchanged since chest CT of May 28, 2016. IMPRESSION: 1. Bilateral lower lobe opacities, left greater than right, with associated volume loss which favor atelectasis. Multifocal mucus plugging/debris within the lower lobes which has improved since abdominal CT of June 19, 2016 2. Nodular and ground glassopacities throughout the lungs which could reflect an infectious process or pulmonary edema. 3. Moderate cardiomegaly. 4. No change in mildly enlarged mediastinal lymph nodes since CT of May 28, 2016. These are nonspecific but may be reactive. Electronically signed by: Diallo Parker M.D. 10/10/2016 12:08 PM Dictated Date/Time: 10/10/2016 11:58 AM
[2016-10-10 12:52] VITALS: BP 136/65; PULSE 81; O2SAT 91
[2016-10-10] MEDS ORDERED: LEVO1TAB35 PO ×2 (14:08)
--- NOTE | 2016-10-10 14:15 | Discharge Instructions ---
Discharge Instructions Date of Service Oct 10, 2016. Admission Reason for Admission: PNA Discharge Discharge Diagnosis / Problem: PNA Discharge Goals Goal(s): Decrease discomfort, Diagnostic testing Activity Recommendations Activity Limitations: resume your previous activity . Instructions / Follow-Up Instructions / Follow-Up You were admitted to the hospital because of some confusion and increasing oxygen demands. There was concern for aspiration pneumonia so you were placed on vancomycin and Aztreonam. We have transitioned you to oral levaquin and recommend a follow up in a week with your PCP and with Dr Luther. We also saw that your sodium was quite low and the records and tape recordings engineer was consulted. We recommend - 60 mL water flushes before and after each feeding and 200 mL free water flushes 4 times a day separate from feedings. There was no other changes to your medications. We wish you joe Trimble Current Hospital Diet Patient's current hospital diet: Discharge Diet Recommended Diet: Diabetes Type 2 Diet Pending Studies Studies pending at discharge: no Laboratory Results Hemoglobin A1c Test 10/09/16 04:35 Range/Units Estimated Average Glucose 160 mg/dl Hemoglobin A1c 7.2 H 4.5-5.6 % Medical Emergencies . Who to Call and When: Medical Emergencies: If at any time you feel your situation is an emergency, please call 911 immediately. . Non-Emergent Contact Non-Emergency issues call your: Primary Care Provider . . "Provider Documentation" section prepared by Harmony Trimble. . VTE Core Measure Inpt VTE Proph given/why not?: Enoxaparin (Lovenox)SQ
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
[2016-10-10 14:27] VITALS: BP 136/65; PULSE 81; TEMP 36.9; O2SAT 91
[2016-10-10] MEDS ORDERED: VANCOMYCIN INJ 1,000 MG in SODIUM CHLORIDE 0.9% 250ML 250 ML IV SCH (16:00)
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
[2016-10-11] MEDS ORDERED: VANCOMYCIN TROUGH SCH (13:30)
[2016-10-12] MEDS ORDERED: EPOETIN ALFA 40,000 UNITS/ML VIAL SC SCH (09:00)
[2016-10-12] MEDS ORDERED: VANCOMYCIN TROUGH ONE (15:30)
[2016-11-08] MEDS ORDERED: LAMO200T38 PO (14:36)
[2016-11-22] MEDS ORDERED: VNTHFA/IN INH (14:51)
[2016-11-22] MEDS ORDERED: NUTRLIQ14 PEG (14:51)
[2016-11-22] MEDS ORDERED: ALL100 PEG (14:51)
[2016-11-22] MEDS ORDERED: AMLO-110 PEG (14:51)
[2016-11-22] MEDS ORDERED: POLYSOL4 OP (14:51)
[2016-11-22] MEDS ORDERED: INSDGI SC (14:51)
[2016-11-22] MEDS ORDERED: ACET-1256 PEG (14:51)
[2016-11-22] MEDS ORDERED: BUSP1TAB46 PEG (14:51)
[2016-11-22] MEDS ORDERED: ESCI1TAB10 PEG (14:51)
[2016-11-22] MEDS ORDERED: PROB1TAB16 PEG (14:51)
[2016-11-22] MEDS ORDERED: PENT100C6 PEG (14:51)
[2016-11-22] MEDS ORDERED: FLUC100T4 PEG (14:51)
[2016-11-22] MEDS ORDERED: MELA1TAB4 PEG (14:51)
[2016-11-22] MEDS ORDERED: LDDP5 TOP (14:51)
[2016-11-22] MEDS ORDERED: CHOL1TAB46 PEG (14:51)
[2016-11-22] MEDS ORDERED: ONDA4TAB46 PEG (14:51)
[2016-11-22] MEDS ORDERED: GABA1SOL4 PEG ×3 (14:51)
[2016-11-22] MEDS ORDERED: LIFI5DRO OP (14:51)
[2016-11-22] MEDS ORDERED: PHEN-876 PEG (14:51)
[2016-11-22] MEDS ORDERED: NVLG (14:51)
[2016-11-22] MEDS ORDERED: LAMO150T32 PEG (14:51)
[2016-11-22] MEDS ORDERED: BISA10SU7 PR (14:51)
[2016-11-22] MEDS ORDERED: [UNRECOGNIZED DRUG - CODE] PEG (14:51)
[2016-11-22] MEDS ORDERED: LORA-741 PEG (14:51)
[2016-11-22] MEDS ORDERED: METH1INJ SC (14:51)
[2016-11-22] MEDS ORDERED: CLOP1TAB15 PEG (14:51)
[2016-11-22] MEDS ORDERED: AGG PEG (14:51)
[2016-11-22] MEDS ORDERED: ERTA1INJ IV (14:51)
[2016-11-22] MEDS ORDERED: POLY335019 PEG (14:51)
[2016-11-22] MEDS ORDERED: LEVO-17 PEG (14:51)
[2016-11-22] MEDS ORDERED: LAMO200T38 PEG (14:51)
[2016-11-22] MEDS ORDERED: MEDR2.5T GT (15:00)
[2016-11-28] MEDS ORDERED: SRQ25 PO (09:53)
== END 2016-10-10 16:43 | disposition home health service (06) | DRG 177 ==
LOC: C.EDB 14:13 → C.2E 17:38 → ENRESERV 18:02
PROVIDERS: ADMIT Family Medicine; ATTEND Family Medicine
PROC: 5A09457 Assistance with Respiratory Ventilation, 24-96 Consecutive Hours, Continuous Positive Airway Pressure (ICD-10-PCS; principal; 2016-10-08)
DX: J69.0 Pneumonitis due to inhalation of food and vomit (principal); G82.51 Quadriplegia, C1-C4 complete; Z99.11 Dependence on respirator [ventilator] status; B37.49 Other urogenital candidiasis; J96.21 Acute and chronic respiratory failure with hypoxia; E87.1 Hypo-osmolality and hyponatremia; I25.2 Old myocardial infarction; E11.40 Type 2 diabetes mellitus with diabetic neuropathy, unspecified; Z93.0 Tracheostomy status; J44.9 Chronic obstructive pulmonary disease, unspecified; Z83.3 Family history of diabetes mellitus; Z88.2 Allergy status to sulfonamides; G40.909 Epilepsy, unspecified, not intractable, without status epilepticus; V89.2XXS Person injured in unspecified motor-vehicle accident, traffic, sequela

== ENCOUNTER → 2016-10-16 | Outpatient (CLI) | payer OTHER ==
[~2016-10-16] MED LIST changes: +ACET-1256 PEG; +AGGRENOX PEG; +ALL100 PEG; +AMLO-110 PEG; +BACL10TA PEG; +BISA10SU7 PR; +BUSP1TAB46 PEG; +CHOL1TAB46 PEG; +ESCI1TAB10 PEG; +GENT0.1C2 FLUSH; +KPP250 PEG; -KPPSUDL500 PO; +LAMO150T32 PEG; +LAMO200T38 PEG; +LAMO200T38 PO; +LDDP5 TOP; +LEVE100S10 PEG; +LEVO-17 GT; +LEVO-17 PEG; +LEVO1TAB35 PO; +LEXAPRO PEG; +LIFI5DRO; +LIFI5DRO OP; +LORA-741 PO; +MEDR2.5T GT; +MELA1CAP PO; +MELA1TAB4 PEG; +MELA1TAB5 PO; +METH1INJ SC; +METH1INJ SQ; +NVLG; +ONDA4TAB46 PEG; +POLYSOL4 OP; +PROB1TAB16 PEG; +SRQ25 PO; +[UNRECOGNIZED DRUG - CODE] PEG; -[UNRECOGNIZED DRUG - CODE] PEG
== END | disposition home or self-care (01) ==
LOC: C.LABSPEC 11:14
PROVIDERS: ATTEND Physician Assistant Medical
DX: R19.7 Diarrhea, unspecified (principal)

== ENCOUNTER → 2016-10-17 | Outpatient (CLI) | payer OTHER ==
[2016-10-17 12:10] LABS: BASO % 0.3 %; BASO ABS # 0.03 K/uL (0-0.2); COMPLETE YES; HEMATOCRIT 35.8 % (37-47); IG% 0.1 %; LYMPH % 29.3 %; LYMPH ABS # 2.65 K/uL (1.2-3.4); MEAN CELL VOLUME 90.4 fL (80-100); MEAN CORPUSCULAR HEMOGLOBIN 26.8 pg (25-34); MEAN CORPUSCULAR HGB CONC 29.6 g/dl (32-36); MEAN PLATELET VOLUME 9.3 fL (7.4-10.4); MONO % 7.1 %; NEUT % 62.2 %; PLATELET COUNT 247 K/uL (130-400); RED BLOOD COUNT 3.96 M/uL (4.2-5.4); WHITE BLOOD COUNT 9.04 K/uL (4.8-10.8)
[2016-10-17 12:20] LABS: ALT/SGPT 54 U/L (12-78); AST/SGOT 55 U/L (15-37); BLOOD UREA NITROGEN 37 mg/dl (7-18); BUN/CREATININE RATIO 44.5 (10-20); CALCIUM 8.8 mg/dl (8.5-10.1); CARBON DIOXIDE 26 mmol/L (21-32); CHLORIDE 99 mmol/L (98-107); CREATININE 0.82 mg/dl (0.60-1.20); GLUCOSE 199 mg/dl (70-99); POTASSIUM 3.9 mmol/L (3.5-5.1); SODIUM 134 mmol/L (136-145)
[2016-10-17 12:22] LABS: ALB/GLOB RATIO 0.4 (0.9-2); ALKALINE PHOSPHATASE 189 U/L (45-117)
== END | disposition home or self-care (01) ==
LOC: C.LABSPEC 10:00
PROVIDERS: ATTEND Internal Medicine Infectious Disease
DX: J96.10 Chronic respiratory failure, unspecified whether with hypoxia or hypercapnia (principal)

== ENCOUNTER → 2016-10-26 | Outpatient (CLI) | payer OTHER ==
[~2016-10-26] MED LIST changes: -ACET-1256 PEG; -AGG PEG; -ALL100 PEG; -AMLO-110 PEG; -BISA10SU7 PR; -BUSP1TAB46 PEG; -CHOL1TAB46 PEG; -ESCI1TAB10 PEG; -GENT0.1C2 FLUSH; -KPP250 PEG; -LAMO150T32 PEG; -LAMO200T38 PEG; -LAMO200T38 PO; -LDDP5 TOP; -LEVE250T PEG; -LEVO-17 PEG; -LEVO1TAB35 PO; -LIFI5DRO; -LIFI5DRO OP; -LORA-741 PO; -MEDR2.5T GT; -MELA1TAB4 PEG; -MELA1TAB5 PO; -METH1INJ SC; -NVLG; -ONDA4TAB46 PEG; -POLYSOL4 OP; -PROB1TAB16 PEG; -SRQ25 PO; -[UNRECOGNIZED DRUG - CODE] PEG
[2016-10-26 14:25] LABS: URINE APPEARANCE CLEAR (CLEAR); URINE BILIRUBIN NEG (NEG); URINE COLOR YELLOW; URINE NITRITE NEG (NEG); URINE SPECIFIC GRAVITY 1.017 (1.000-1.030); UROBILINOGEN NEG (NEG); ZZUR CULT IF INDIC CLEAN CATCH NO
[2016-10-26 14:29] LABS: MANUAL MICROSCOPIC REQUIRED? NO; REVIEW REQ? NO
== END | disposition home or self-care (01) ==
LOC: C.LABSPEC 12:19
PROVIDERS: ATTEND Physician Assistant Medical
DX: R31.0 Gross hematuria (principal)

== ENCOUNTER → 2016-11-05 | Outpatient (CLI) | payer OTHER ==
[~2016-11-05] MED LIST changes: +ACET-1256 PEG; +AGG PEG; +ALL100 PEG; +AMLO-110 PEG; +BISA10SU7 PR; +BUSP1TAB46 PEG; +CHOL1TAB46 PEG; +ESCI1TAB10 PEG; +GENT0.1C2 FLUSH; +KPP250 PEG; +LAMO150T32 PEG; +LAMO200T38 PEG; +LAMO200T38 PO; +LDDP5 TOP; +LEVE250T PEG; +LEVO-17 PEG; +LIFI5DRO; +LIFI5DRO OP; +LORA-741 PO; +MEDR2.5T GT; +MELA1TAB4 PEG; +MELA1TAB5 PO; +METH1INJ SC; +NVLG; +ONDA4TAB46 PEG; +POLYSOL4 OP; +PROB1TAB16 PEG; +SRQ25 PO; +[UNRECOGNIZED DRUG - CODE] PEG
--- NOTE | 2016-11-05 14:51 | DIAGNOSTIC IMAGING REPORT ---
(RENAL)RETROPERITON COMP CLINICAL HISTORY: 71 years-old Female presenting with proteinuria. TECHNIQUE: Real-time grayscale and limited color Doppler ultrasound imaging of the kidneys and bladder was performed. COMPARISON: CT from 06/19/2016. FINDINGS: Right kidney: Grossly normal echogenicity, however, renal sinus fat is expanded with apparent cortical thinning. Right kidney measures 13.2 cm. No hydronephrosis. No convincing evidence of calculus or mass. Normal perfusion. Left kidney: Grossly normal echogenicity, although similarly the renal sinus fat is expanded with apparent cortical thinning. Left kidney measures 13.4 cm. No hydronephrosis. 1 cm anechoic likely simple cyst noted. Normal perfusion. Bladder: Decompressed with a Staples catheter Other: None. IMPRESSION: 1. No evidence of obstruction. Bilateral renal cortical thinning compatible with chronic medical renal disease. Electronically signed by: Nikolay Lo M.D. 11/05/2016 2:49 PM Dictated Date/Time: 11/05/2016 2:47 PM
== END | disposition home or self-care (01) ==
LOC: C.ULTR 14:08
PROVIDERS: ATTEND Physician Assistant Medical
DX: R80.9 Proteinuria, unspecified (principal)

== ENCOUNTER → 2016-11-09 | Outpatient (CLI) | payer OTHER ==
[2016-11-09 10:43] LABS: ALT/SGPT 66 U/L (12-78); BLOOD UREA NITROGEN 47 mg/dl (7-18); BUN/CREATININE RATIO 47.9 (10-20); CALCIUM 9.9 mg/dl (8.5-10.1); CARBON DIOXIDE 25 mmol/L (21-32); CHLORIDE 100 mmol/L (98-107); CHOLESTEROL 213 mg/dl (0-200); CREATININE 0.99 mg/dl (0.60-1.20); GLUCOSE 215 mg/dl (70-99); POTASSIUM 4.2 mmol/L (3.5-5.1); SODIUM 135 mmol/L (136-145)
[2016-11-09 10:54] LABS: ALB/GLOB RATIO 0.4 (0.9-2); ALKALINE PHOSPHATASE 179 U/L (45-117); AST/SGOT 53 U/L (15-37); CHOLESTEROL/HDL RATIO 5.9; FERRITIN 95.3 ng/ml (8.0-388.0); HDL CHOLESTEROL 36 mg/dl; TRIGLYCERIDES 637 mg/dl (0-150); URIC ACID 7.9 mg/dl (2.6-7.2)
== END | disposition home or self-care (01) ==
LOC: C.LABSPEC 10:06
PROVIDERS: ATTEND Psychiatry & Neurology Neurology
DX: G40.909 Epilepsy, unspecified, not intractable, without status epilepticus (principal)

== ENCOUNTER → 2016-11-13 | Outpatient (CLI) | payer OTHER ==
[2016-11-13 19:19] LABS: RATIO 1988.2 mcg/mg (0-30.0)
== END | disposition home or self-care (01) ==
LOC: C.LABSPEC 10:53
PROVIDERS: ATTEND Physician Assistant Medical
DX: R80.9 Proteinuria, unspecified (principal)

== ENCOUNTER → 2016-11-16 | Outpatient (CLI) | payer OTHER ==
[2016-11-16 10:58] LABS: BASO % 0.3 %; BASO ABS # 0.02 K/uL (0-0.2); COMPLETE YES; HEMATOCRIT 43.2 % (37-47); IG% 0.5 %; LYMPH % 39.1 %; LYMPH ABS # 2.42 K/uL (1.2-3.4); MEAN CELL VOLUME 86.2 fL (80-100); MEAN CORPUSCULAR HEMOGLOBIN 28.7 pg (25-34); MEAN CORPUSCULAR HGB CONC 33.3 g/dl (32-36); MEAN PLATELET VOLUME 10.6 fL (7.4-10.4); MONO % 5.8 %; NEUT % 53.3 %; PLATELET COUNT 148 K/uL (130-400); RED BLOOD COUNT 5.01 M/uL (4.2-5.4); WHITE BLOOD COUNT 6.19 K/uL (4.8-10.8)
[2016-11-16 12:56] LABS: ESTIMATED AVERAGE GLUCOSE 203 mg/dl; HA1C FLAG Normal (Normal)
[2016-11-16 13:00] LABS: ALB/GLOB RATIO 0.4 (0.9-2); ALKALINE PHOSPHATASE 192 U/L (45-117); ALT/SGPT 68 U/L (12-78); AST/SGOT 58 U/L (15-37); BLOOD UREA NITROGEN 48 mg/dl (7-18); BUN/CREATININE RATIO 52.3 (10-20); CALCIUM 9.5 mg/dl (8.5-10.1); CARBON DIOXIDE 25 mmol/L (21-32); CHLORIDE 101 mmol/L (98-107); CHOLESTEROL 214 mg/dl (0-200); CHOLESTEROL/HDL RATIO 6.7; CREATININE 0.91 mg/dl (0.60-1.20); GLUCOSE 271 mg/dl (70-99); HDL CHOLESTEROL 32 mg/dl; POTASSIUM 4.2 mmol/L (3.5-5.1); SODIUM 135 mmol/L (136-145); TRIGLYCERIDES 748 mg/dl (0-150)
[2016-11-16 13:28] LABS: FERRITIN 143.1 ng/ml (8.0-388.0)
== END | disposition home or self-care (01) ==
LOC: C.LABSPEC 10:24
PROVIDERS: ATTEND Internal Medicine Infectious Disease
DX: Z79.2 Long term (current) use of antibiotics (principal)

== ENCOUNTER → 2016-11-16 | Outpatient (CLI) | payer OTHER | END | disposition home or self-care (01) | LOC: C.LABSPEC 09:59 | PROVIDERS: ATTEND Internal Medicine Infectious Disease | DX: Z79.2 Long term (current) use of antibiotics (principal) ==

== ENCOUNTER → 2016-11-17 | Outpatient (CLI) | payer OTHER ==
--- NOTE | 2016-11-19 14:10 | CODING QUERY MEDICAL NECESSITY ---
CQTREATMENT RENDERED WITHOUT A DIAGNOSIS To promote full compliance with coding requirements relating to patient care, physician participation is requested in all cases of wireworker supervisor uncertainty. Please assist us with providing a diagnosis/symptom for the test(s) below: A diagnosis/symptom was not documented on your Order. A valid diagnosis/symptom is required to bill all insurances. Please remember that we are unable to code a diagnosis of rule out, probable, possible, questionable, or suspected. Tests that require a diagnosis: DOS 11/17/16 STOOL CULTURES NEED DIAGNOSIS FOR TESTS Provider Signature: Date: Thank you Angy Henson Health Information Management Once completed, please kindly fax back to [phone] For questions please call [phone]
== END | disposition home or self-care (01) ==
LOC: C.LABSPEC 16:59
PROVIDERS: ATTEND Internal Medicine
DX: A04.7 Enterocolitis due to Clostridium difficile (principal); R19.7 Diarrhea, unspecified

== ENCOUNTER 2016-11-22 14:04 | Inpatient (IN) | payer OTHER ==
[~2016-11-22] VITALS: Ht 152.4 cm; Wt 70.7 kg
[~2016-11-22 14:04] MED LIST changes: -ACET-1256 PEG; -AGG PEG; -ALL100 PEG; -AMLO-110 PEG; -BISA10SU7 PR; -BUSP1TAB46 PEG; -CHOL1TAB46 PEG; -ESCI1TAB10 PEG; -GENT0.1C2 FLUSH; -KPP250 PEG; -LAMO150T32 PEG; -LAMO200T38 PEG; -LDDP5 TOP; -LEVE250T PEG; -LEVO-17 PEG; -LIFI5DRO; -LIFI5DRO OP; -LORA-741 PO; -MEDR2.5T GT; -MELA1TAB4 PEG; -MELA1TAB5 PO; -METH1INJ SC; -NVLG; -ONDA4TAB46 PEG; -POLYSOL4 OP; -PROB1TAB16 PEG; -SRQ25 PO; -[UNRECOGNIZED DRUG - CODE] PEG
[2016-11-22] MEDS ORDERED: ERTA1INJ IV ×2 (14:51)
[2016-11-22] MEDS ORDERED: BUSP1TAB46 PEG ×2 (14:51)
[2016-11-22] MEDS ORDERED: PROB1TAB16 PEG ×2 (14:51)
[2016-11-22] MEDS ORDERED: PHEN-876 PEG ×2 (14:51)
[2016-11-22] MEDS ORDERED: AGG PEG ×2 (14:51)
[2016-11-22] MEDS ORDERED: PENT100C6 PEG ×2 (14:51)
[2016-11-22] MEDS ORDERED: GABA1SOL4 PEG ×6 (14:51)
[2016-11-22] MEDS ORDERED: LAMO150T32 PEG ×2 (14:51)
[2016-11-22] MEDS ORDERED: ALL100 PEG ×2 (14:51)
[2016-11-22] MEDS ORDERED: METH1INJ SC ×2 (14:51)
[2016-11-22] MEDS ORDERED: NUTRLIQ14 PEG ×2 (14:51)
[2016-11-22] MEDS ORDERED: POLYSOL4 OP ×2 (14:51)
[2016-11-22] MEDS ORDERED: CLOP1TAB15 PEG ×2 (14:51)
[2016-11-22] MEDS ORDERED: AMLO-110 PEG ×2 (14:51)
[2016-11-22] MEDS ORDERED: MELA1TAB4 PEG ×2 (14:51)
[2016-11-22] MEDS ORDERED: VNTHFA/IN INH ×2 (14:51)
[2016-11-22] MEDS ORDERED: BISA10SU7 PR ×2 (14:51)
[2016-11-22] MEDS ORDERED: ONDA4TAB46 PEG ×2 (14:51)
[2016-11-22] MEDS ORDERED: LIFI5DRO OP ×2 (14:51)
[2016-11-22] MEDS ORDERED: ESCI1TAB10 PEG ×2 (14:51)
[2016-11-22] MEDS ORDERED: POLY335019 PEG ×2 (14:51)
[2016-11-22] MEDS ORDERED: LAMO200T38 PEG ×2 (14:51)
[2016-11-22] MEDS ORDERED: LDDP5 TOP ×2 (14:51)
[2016-11-22] MEDS ORDERED: INSDGI SC ×2 (14:51)
[2016-11-22] MEDS ORDERED: ACET-1256 PEG ×2 (14:51)
[2016-11-22] MEDS ORDERED: FLUC100T4 PEG ×2 (14:51)
[2016-11-22] MEDS ORDERED: CHOL1TAB46 PEG ×2 (14:51)
[2016-11-22] MEDS ORDERED: LEVO-17 PEG ×2 (14:51)
[2016-11-22] MEDS ORDERED: LORA-741 PEG ×2 (14:51)
[2016-11-22] MEDS ORDERED: NVLG ×2 (14:51)
[2016-11-22] MEDS ORDERED: [UNRECOGNIZED DRUG - CODE] PEG ×2 (14:51)
--- NOTE | 2016-11-22 14:57 | EMERGENCY ROOM VISIT NOTE ---
History First contact with patient: 14:54 Chief Complaint: REFERRED BY DOCTOR Stated Complaint: DR. FLORES WANTS TO HAVE HER SEEN History of Present Illness The patient is a 71 year old quadriplegic female with trach on vent, who presents to the Emergency Room with complaints of thick green sputum through trachea and intermittent confusion spanning the last 4-5 days Carers deny fevers, cough, change in O2 sats or requirements (baseline 2 L O2 via trach) Completed 30 days of Levaquin via PEG and started IV Ertapenem 4 days ago for UTI - has hernandez in situ Over the past few days, patient has been less coherent at times, sleeping a lot more, and confused about time and location. Denies CP, abdominal pain, N/V, changes in bowel habits. Care providers have also noted progressive thickening of mucous, with transition to green colour. They state that this has always coincided with pneumonia in the past. Dr. Flores (patient's airline reservationist) was called, and advised ED for CXR Review of Systems See HPI for pertinent positives and negatives. A total of ten systems were reviewed and were otherwise negative. Past Medical/Surgical History Medical Problems: (1) Acute and chronic respiratory failure (2) Aspiration pneumonia (3) Chronic obstructive lung disease (4) Chronic respiratory failure (5) Chronic urinary tract infection (6) Dependence on continuous positive airway pressure ventilation (7) ESOPHAGEAL CANDIDITIS (8) leukocytoclastic vasculitis (9) Quadriplegia (10) Respiratory arrest (11) Respiratory failure (12) vent dep Family History Cancer Diabetes mellitus Heart disease Hypertension Lung disease Social History Smoking Status: Never Smoker Alcohol Use: none Drug Use: none Marital Status: Housing Status: lives with family, other Occupation Status: disabled, other Current/Historical Medications Scheduled Albuterol Hfa (Ventolin Hfa), 2 PUFFS INH BID Allopurinol (Allopurinol), 100 MG PEG DAILY Amlodipine (Norvasc), 3.75 MG PEG DAILY Buspirone Hcl (Buspirone Hcl), 7.5 MG PEG BID Cholecalciferol (Vitamin D3), 5,000 UNITS PEG DAILY Clopidogrel (Plavix), 75 MG PEG DAILY Dipyridamole/Aspirin (Aggrenox 25-200 mg), 1 CAP PEG BID Ertapenem Sodium (Invanz), 1 GM IV DAILY Escitalopram Oxalate (Lexapro), 20 MG PEG DAILY Fluconazole (Diflucan), 100 MG PEG DAILY Gabapentin (Gabapentin), 2 ML PEG QAM Gabapentin (Gabapentin), 4 ML PEG DAILY Gabapentin (Gabapentin), 12 ML PEG QPM Insulin Glargine (Lantus), 30 UNITS SC HS Lamotrigine (Lamictal), 150 MG PEG QAM Lamotrigine (Lamictal), 200 MG PEG QPM Levetiracetam (Keppra), 5 ML PEG BID Levofloxacin (Levaquin), 250 MG PEG DAILY Lifitegrast (Xiidra), 1 DROP OP BID Lorazepam (Ativan), 0.5 MG PEG DAILY Medroxyprogesterone (Provera), 2.5 MG GT DAILY Melatonin (Melatonin), 1 MG PEG HS Nutritional Supplements (Nutren 2.0), 1 CAN PEG TID Pentosan Polysulfate Sodium (Elmiron), 100 MG PEG BID Probiotic Product (Probiotic), 1 TAB PEG TID Scheduled PRN Acetaminophen (Tylenol), 1,000 MG PEG Q6 PRN for Pain Bisacodyl (Bisac-Evac), 1 SUPP NC HS PRN for Constipation Lidocaine (Lidocaine), 2 PATCH TOP DAILY PRN for Pain Methylnaltrexone [place] (Relistor), 1 DOSE SC Q2D PRN for . Ondansetron Hcl (Zofran), 4 MG PEG AC PRN for Nausea Phenazopyridine HCl (Pyridium), 200 MG PEG BID PRN for BLADDER Polyethylene Glycol 3350 (Miralax), 17 GM PEG DAILY PRN for Constipation Polyethylene Glycol-Propylene (Systane), 1 DROPS OP QID PRN for DRYNESS Miscellaneous Medications Insulin Aspart (Novolog) Physical Exam Vital Signs Date Time Temp Pulse Resp B/P (MAP) Pulse Ox O2 Delivery O2 Flow Rate FiO2 11/22/16 18:15 70 18 126/106 97 Room Air 11/22/16 17:04 68 18 98 2.0 11/22/16 16:16 68 20 206/85 98 Trach Collar 3.0 11/22/16 14:06 36.5 70 22 134/67 100 Trach Collar 2.0 Physical Exam GENERAL: alert, anxious appearing, quadriplegic, non-toxic, responding appropriately to questions HEAD: NC/AT. No sinus tenderness. EYES: PERRL, EOMI, normal conjunctiva NECK: Neck collar on attached to vent OROPHARYNX: no exudate, no erythema, lips, buccal mucosa, and tongue normal and mucous membranes are dry LUNGS: Difficult to auscultate with sound of vent. Normal chest wall mechanics, good air entry. HEART: no murmurs, S1 and S2 normal CHEST: No reproducible tenderness. ABDOMEN: abdomen soft, non-tender, normo-active bowel sounds, no masses, no rebound or guarding. SKIN: Warm, pink, dry. No erythema, rashes, or bruising. NEURO: Alert, Ox3. No focal deficits. Cranial nerves II-XII grossly intact, speech effortful timed with vent. PSYCH: Emotional, and teary Medical Decision & Procedures ER Provider Diagnostic Interpretation: CHEST 2 VIEWS ROUTINE CLINICAL HISTORY: increased sputum, trach dyspnea COMPARISON STUDY: 10/08/2016 FINDINGS: Central catheter in superior vena cava. Tracheostomy tube in good position. Mild increased prominence of the basilar parenchymal markings left and to a lesser extent right base. An early pneumonitis is considered. IMPRESSION: Developing and or early bibasilar parenchymal infiltrative/interstitial change. Laboratory Results Test 11/22/16 15:22 11/22/16 15:52 11/22/16 17:16 Creatine Kinase MB Ratio (0-3.0) Immature Granulocyte % (Auto) 0.4 % White Blood Count 7.25 K/uL (4.8-10.8) Red Blood Count 4.00 M/uL (4.2-5.4) Hemoglobin 11.3 g/dL (12.0-16.0) Hematocrit 34.8 % (37-47) Mean Corpuscular Volume 87.0 fL (80-100) Mean Corpuscular Hemoglobin 28.3 pg (25-34) Mean Corpuscular Hemoglobin Concent 32.5 g/dl (32-36) Platelet Count 160 K/uL (130-400) Mean Platelet Volume 9.6 fL (7.4-10.4) Neutrophils (%) (Auto) 54.5 % Lymphocytes (%) (Auto) 33.0 % Monocytes (%) (Auto) 10.2 % Eosinophils (%) (Auto) 1.5 % Basophils (%) (Auto) 0.4 % Neutrophils # (Auto) 3.95 K/uL (1.4-6.5) Lymphocytes # (Auto) 2.39 K/uL (1.2-3.4) Monocytes # (Auto) 0.74 K/uL (0.11-0.59) Eosinophils # (Auto) 0.11 K/uL (0-0.5) Basophils # (Auto) 0.03 K/uL (0-0.2) Immature Granulocyte # (Auto) 0.03 K/uL (0.00-0.02) Creatine Kinase MB 8.4 ng/ml (0.5-3.6) Troponin I < 0.015 ng/ml (0-0.045) Globulin 6.1 gm/dl (2.5-4.0) Albumin/Globulin Ratio 0.4 (0.9-2) Urine Color YELLOW Urine Appearance CLEAR (CLEAR) Urine pH 7.0 (4.5-7.5) Urine Specific [place] 1.017 (1.000-1.030) Urine Protein 2+ (NEG) Urine Glucose (UA) 1+ (NEG) Urine Ketones NEG (NEG) Urine Occult Blood NEG (NEG) Urine Nitrite NEG (NEG) Urine Bilirubin NEG (NEG) Urine Urobilinogen NEG (NEG) Urine Leukocyte Esterase NEG (NEG) Urine WBC (Auto) 0 /hpf (0-5) Urine RBC (Auto) 0-4 /hpf (0-4) Urine Hyaline Casts (Auto) 0 /lpf (0-5) Urine Epithelial Cells (Auto) 0-5 /lpf (0-5) Urine Bacteria (Auto) NEG (NEG) Medications Administered Medications (Trade) Dose Ordered Sig/Tasha Route Start Time Stop Time Status Last Admin Dose Admin Albuterol/ Ipratropium (Duoneb) 3 ml Q4R INH 11/22/16 16:00 11/22/16 22:14 DC 11/22/16 16:00 3 ML Sodium Chloride 1,000 ml @ 100 mls/hr Q10H IV 11/22/16 18:14 11/23/16 14:13 DC 11/23/16 05:57 100 MLS/HR Acetaminophen (Tylenol Tab) 650 mg Q4H PRN PO 11/22/16 18:15 12/22/16 18:14 11/23/16 15:28 650 MG Al Hydrox/Mg Hydrox/Simethicone (Maalox Max Susp) 15 ml Q4H PRN PO 11/22/16 18:15 12/22/16 18:14 11/23/16 11:58 15 ML ECG Indication: altered mental status Rate (beats per minute): 68 Findings: nonspecific-ST abn, ST elevation (?early repolarization, pericarditis , or injury) ED Course 1452: The patient was evaluated in room C12. A complete history and physical exam was performed. 1522: Labs, imaging and Duonebs ordered 1620: Reassessed patient, still anxious. Vitals and symptoms otherwise stable. Updated patient and caregivers of results. Discussed need for admission. 1727: Discussed with hospitalist Dr. Plata Medical Decision Prior records/ancillary studies reviewed and summarized above. Nursing notes reviewed. Additional history obtained from patient and health caregivers. The patient's history was concerning for altered mental status. Differential diagnosis: Etiologies such as metabolic, infection, hypoglycemia, electrolyte abnormalities , cardiac sources, intracerebral event, toxicologic, neurologic, as well as others were entertained. Physical examination: As above. ER treatment provided: IV Lock Normal saline hydration 1000ml at 150cc/hr. Duoneb On reassessment the patients mental status improved. Diagnostics interpretation by me: ECG: NSR, 68 bpm, ST elevation, consider early repolarization, pericarditis, or injury The labs revealed mild anemia, hyponatremia, transaminitis, negative trop, CKMB elevated but unchanged from previous. Imaging studies: Developing and or early bibasilar parenchymal infiltrative/ interstitial change on CXR Given the above diagnostic work-up and treatment, this episode appears to be consistent with pneumonia. Further treatment will be required. Consultation: A consultation was placed with the [facility] hospitalist. The case was discussed and diagnostics were reviewed. The patient was evaluated in the ER for further treatment. Impression Primary Impression: PNA (pneumonia) Departure Information Dispostion Being Evaluated By Hospitalist Condition GOOD Referrals Alvaro Turner M.D. (PCP) Patient Instructions My [facility] Resident Tracking Resident Involvement: Resident Care Provided Care Provided: Adult ED
[2016-11-22] MEDS ORDERED: MEDR2.5T GT ×2 (15:00)
[2016-11-22] MEDS ORDERED: ALBUT/IPRATROP 3MG/0.5MG NEB 3 ML VIAL INH SCH (16:00)
[2016-11-22 16:08] LABS: BASO % 0.4 %; BASO ABS # 0.03 K/uL (0-0.2); COMPLETE YES; EOS % 1.5 %; HEMATOCRIT 34.8 % (37-47); IG% 0.4 %; LYMPH ABS # 2.39 K/uL (1.2-3.4); MEAN CORPUSCULAR HEMOGLOBIN 28.3 pg (25-34); MEAN CORPUSCULAR HGB CONC 32.5 g/dl (32-36); MEAN PLATELET VOLUME 9.6 fL (7.4-10.4); MONO % 10.2 %; NEUT % 54.5 %; PLATELET COUNT 160 K/uL (130-400); WHITE BLOOD COUNT 7.25 K/uL (4.8-10.8)
[2016-11-22 16:26] LABS: ALT/SGPT 117 U/L (12-78); BLOOD UREA NITROGEN 30 mg/dl (7-18); BUN/CREATININE RATIO 39.9 (10-20); CALCIUM 9.3 mg/dl (8.5-10.1); CARBON DIOXIDE 25 mmol/L (21-32); CHLORIDE 98 mmol/L (98-107); CREATININE 0.74 mg/dl (0.60-1.20); GLUCOSE 218 mg/dl (70-99); POTASSIUM 4.3 mmol/L (3.5-5.1); SODIUM 132 mmol/L (136-145)
[2016-11-22 16:31] LABS: ALB/GLOB RATIO 0.4 (0.9-2); ALKALINE PHOSPHATASE 255 U/L (45-117); AST/SGOT 89 U/L (15-37)
[2016-11-22 17:04] VITALS: PULSE 68; O2SAT 98
--- NOTE | 2016-11-22 17:04 | DIAGNOSTIC IMAGING REPORT ---
CHEST 2 VIEWS ROUTINE CLINICAL HISTORY: increased sputum, trach dyspnea COMPARISON STUDY: 10/08/2016 FINDINGS: Central catheter in superior vena cava. Tracheostomy tube in good position. Mild increased prominence of the basilar parenchymal markings left and to a lesser extent right base. An early pneumonitis is considered. IMPRESSION: Developing and or early bibasilar parenchymal infiltrative/interstitial change. The above report was generated using voice recognition software. It may contain grammatical, syntax or spelling errors. Electronically signed by: Pollo Sultana M.D. 11/22/2016 5:02 PM Dictated Date/Time: 11/22/2016 5:01 PM
[2016-11-22 17:38] LABS: URINE APPEARANCE CLEAR (CLEAR); URINE BILIRUBIN NEG (NEG); URINE COLOR YELLOW; URINE EPITHELIAL CELL AUTO 0-5 /lpf (0-5); URINE NITRITE NEG (NEG); URINE SPECIFIC GRAVITY 1.017 (1.000-1.030); UROBILINOGEN NEG (NEG); ZZURINE CULT IF INDIC CATH NO
[2016-11-22 17:42] LABS: MANUAL MICROSCOPIC REQUIRED? NO; REVIEW REQ? NO
--- NOTE | 2016-11-22 18:01 | EMERGENCY ROOM VISIT NOTE ---
ED Visit Note First contact with patient: 14:54 Resident Physician Supervision Note: I interviewed and examined the patient. Discussed with Dr. Flores and agree with findings and plan as documented in the note. Documented By: Rajat Thompson Problem List Medical Problems: (1) Chronic obstructive lung disease Status: Chronic (2) Chronic respiratory failure Status: Chronic (3) Chronic urinary tract infection Status: Chronic (4) Dependence on continuous positive airway pressure ventilation Status: Chronic (5) Quadriplegia Status: Chronic (6) Respiratory arrest Status: Resolved (7) Respiratory failure Status: Chronic (8) vent dep Status: Chronic Current/Historical Medications Scheduled Albuterol Hfa (Ventolin Hfa), 2 PUFFS INH BID Allopurinol (Allopurinol), 100 MG PEG DAILY Amlodipine (Norvasc), 3.75 MG PEG DAILY Buspirone Hcl (Buspirone Hcl), 7.5 MG PEG BID Cholecalciferol (Vitamin D3), 5,000 UNITS PEG DAILY Clopidogrel (Plavix), 75 MG PEG DAILY Dipyridamole/Aspirin (Aggrenox 25-200 mg), 1 CAP PEG BID Ertapenem Sodium (Invanz), 1 GM IV DAILY Escitalopram Oxalate (Lexapro), 20 MG PEG DAILY Fluconazole (Diflucan), 100 MG PEG DAILY Gabapentin (Gabapentin), 2 ML PEG QAM Gabapentin (Gabapentin), 4 ML PEG DAILY Gabapentin (Gabapentin), 12 ML PEG QPM Insulin Glargine (Lantus), 30 UNITS SC HS Lamotrigine (Lamictal), 150 MG PEG QAM Lamotrigine (Lamictal), 200 MG PEG QPM Levetiracetam (Keppra), 5 ML PEG BID Levofloxacin (Levaquin), 250 MG PEG DAILY Lifitegrast (Xiidra), 1 DROP OP BID Lorazepam (Ativan), 0.5 MG PEG DAILY Medroxyprogesterone (Provera), 2.5 MG GT DAILY Melatonin (Melatonin), 1 MG PEG HS Nutritional Supplements (Nutren 2.0), 1 CAN PEG TID Pentosan Polysulfate Sodium (Elmiron), 100 MG PEG BID Probiotic Product (Probiotic), 1 TAB PEG TID Scheduled PRN Acetaminophen (Tylenol), 1,000 MG PEG Q6 PRN for Pain Bisacodyl (Bisac-Evac), 1 SUPP AL HS PRN for Constipation Lidocaine (Lidocaine), 2 PATCH TOP DAILY PRN for Pain Methylnaltrexone [place] (Relistor), 1 DOSE SC Q2D PRN for . Ondansetron Hcl (Zofran), 4 MG PEG AC PRN for Nausea Phenazopyridine HCl (Pyridium), 200 MG PEG BID PRN for BLADDER Polyethylene Glycol 3350 (Miralax), 17 GM PEG DAILY PRN for Constipation Polyethylene Glycol-Propylene (Systane), 1 DROPS OP QID PRN for DRYNESS Miscellaneous Medications Insulin Aspart (Novolog) Allergies Coded Allergies: Ampicillin (Verified Allergy, Intermediate, RASH, 10/08/16) Cephalexin (Verified Allergy, Intermediate, RASH, 10/08/16) Cephalosporins (Verified Allergy, Intermediate, rash, 10/08/16) Erythromycin (Verified Allergy, Intermediate, RASH, 10/08/16) Nitrofurantoin (Verified Allergy, Intermediate, RASH, 10/08/16) Penicillins (Verified Allergy, Intermediate, RASH, 10/08/16) Linezolid (Verified Allergy, Unknown, UNKN, 10/08/16) Sulfa Antibiotics (Verified Allergy, Unknown, ., 10/08/16) Vital Signs Date Time Temp Pulse Resp B/P (MAP) Pulse Ox O2 Delivery O2 Flow Rate FiO2 11/22/16 17:04 68 18 98 2.0 11/22/16 16:16 68 20 206/85 98 Trach Collar 3.0 11/22/16 14:06 36.5 70 22 134/67 100 Trach Collar 2.0 Laboratory Results 11/22/16 15:52 Red Blood Count 4.00, Mean Corpuscular Volume 87.0, Mean Corpuscular Hemoglobin 28.3, Mean Corpuscular Hemoglobin Concent 32.5, Mean Platelet Volume 9.6, Neutrophils (%) (Auto) 54.5, Lymphocytes (%) (Auto) 33.0, Monocytes (%) (Auto) 10.2, Eosinophils (%) (Auto) 1.5, Basophils (%) (Auto) 0.4, Neutrophils # (Auto ) 3.95, Lymphocytes # (Auto) 2.39, Monocytes # (Auto) 0.74, Eosinophils # (Auto ) 0.11, Basophils # (Auto) 0.03 11/22/16 15:52 Test 8/10/17 15:22 11/22/16 15:52 11/22/16 17:16 Creatine Kinase MB Ratio (0-3.0) White Blood Count 7.25 K/uL (4.8-10.8) Red Blood Count 4.00 M/uL (4.2-5.4) Hemoglobin 11.3 g/dL (12.0-16.0) Hematocrit 34.8 % (37-47) Mean Corpuscular Volume 87.0 fL (80-100) Mean Corpuscular Hemoglobin 28.3 pg (25-34) Mean Corpuscular Hemoglobin Concent 32.5 g/dl (32-36) Platelet Count 160 K/uL (130-400) Mean Platelet Volume 9.6 fL (7.4-10.4) Neutrophils (%) (Auto) 54.5 % Lymphocytes (%) (Auto) 33.0 % Monocytes (%) (Auto) 10.2 % Eosinophils (%) (Auto) 1.5 % Basophils (%) (Auto) 0.4 % Neutrophils # (Auto) 3.95 K/uL (1.4-6.5) Lymphocytes # (Auto) 2.39 K/uL (1.2-3.4) Monocytes # (Auto) 0.74 K/uL (0.11-0.59) Eosinophils # (Auto) 0.11 K/uL (0-0.5) Basophils # (Auto) 0.03 K/uL (0-0.2) RDW Standard Deviation 54.4 fL (36.4-46.3) RDW Coefficient of Variation 17.2 % (11.5-14.5) Immature Granulocyte % (Auto) 0.4 % Immature Granulocyte # (Auto) 0.03 K/uL (0.00-0.02) Anion Gap 9.0 mmol/L (3-11) Estimated GFR () 95.8 Estimated GFR (Non- 82.7 BUN/Creatinine Ratio 39.9 (10-20) Calcium Level 9.3 mg/dl (8.5-10.1) Total Bilirubin 0.2 mg/dl (0.2-1) Aspartate Amino Transf (AST/SGOT) 89 U/L (15-37) Alanine Aminotransferase (ALT/SGPT) 117 U/L (12-78) Alkaline Phosphatase 255 U/L (45-117) Creatine Kinase MB 8.4 ng/ml (0.5-3.6) Troponin I < 0.015 ng/ml (0-0.045) Total Protein 8.7 gm/dl (6.4-8.2) Albumin 2.6 gm/dl (3.4-5.0) Globulin 6.1 gm/dl (2.5-4.0) Albumin/Globulin Ratio 0.4 (0.9-2) Urine Color YELLOW Urine Appearance CLEAR (CLEAR) Urine pH 7.0 (4.5-7.5) Urine Specific [place] 1.017 (1.000-1.030) Urine Protein 2+ (NEG) Urine Glucose (UA) 1+ (NEG) Urine Ketones NEG (NEG) Urine Occult Blood NEG (NEG) Urine Nitrite NEG (NEG) Urine Bilirubin NEG (NEG) Urine Urobilinogen NEG (NEG) Urine Leukocyte Esterase NEG (NEG) Urine WBC (Auto) 0 /hpf (0-5) Urine RBC (Auto) 0-4 /hpf (0-4) Urine Hyaline Casts (Auto) 0 /lpf (0-5) Urine Epithelial Cells (Auto) 0-5 /lpf (0-5) Urine Bacteria (Auto) NEG (NEG) Medications Administered Medications (Trade) Dose Ordered Sig/Tasha Route Start Time Stop Time Status Last Admin Dose Admin Albuterol/ Ipratropium (Duoneb) 3 ml Q4R INH 11/22/16 16:00 12/22/16 15:59 11/22/16 16:00 3 ML Departure Information Referrals Alvaro Turner M.D. (PCP) Patient Instructions My [facility]
[2016-11-22] MEDS ORDERED: ONDANSETRON INJ 2 MG/ML 2 ML VIAL IV PRN (18:15)
[2016-11-22] MEDS ORDERED: ALUMINUM/MAGNESIUM/SIMETH (MAALOX MAX) 30 ML UDC PO PRN (18:15)
[2016-11-22] MEDS ORDERED: NON-FORMULARY MEDICATION (Polyethylene Glycol 3350 (Miralax) 17 GM) PEG PRN (18:15)
[2016-11-22] MEDS ORDERED: BISACODYL 10 MG SUPP PR PRN (18:15)
[2016-11-22] MEDS ORDERED: POLYETHYLENE (MIRALAX) 17 GM PACK PO PRN (18:15)
[2016-11-22] MEDS ORDERED: PHENAZOPYRIDINE HCL 200 MG TAB PO PRN (18:15)
[2016-11-22] MEDS ORDERED: MAGNESIUM HYDROXIDE SUSP 30 ML UDC PO PRN (18:15)
[2016-11-22] MEDS ORDERED: ALBUTEROL 0.083% NEBU SOLN 3 ML VIAL INH PRN (18:30)
[2016-11-22] MEDS ORDERED: SODIUM CHLORIDE 0.9% 1000ML 1,000 ML IV SCH (18:30)
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
[2016-11-22 19:15] VITALS: BP 176/83; PULSE 77; O2SAT 100; Ht 152.4 cm; Wt 70.7 kg
[2016-11-22] MEDS ORDERED: GLUCAGON FOR INJ 1 MG VIAL SQ PRN (19:15)
[2016-11-22] MEDS ORDERED: DEXTROSE 50% 50 ML SYR IV PRN (19:15)
[2016-11-22] MEDS ORDERED: GLUCOSE 10 TABS/TUBE PO PRN (19:15)
[2016-11-22] MEDS ORDERED: GLUCOSE 40% GEL 15 GM TUBE PO PRN (19:15)
[2016-11-22] MEDS: SODIUM CHLORIDE 0.9% 1000ML 1,000 ML IV SCH (20:55)
[2016-11-22] MEDS ORDERED: LEVETIRACETAM 500 MG/5 ML VIAL IV SCH (21:00)
[2016-11-22] MEDS ORDERED: GABAPENTIN 250 MG/5 ML 470 ML BTL PEG SCH (21:00)
[2016-11-22] MEDS: ALBUT/IPRATROP 3MG/0.5MG NEB 3 ML VIAL INH SCH (21:00)
[2016-11-22] MEDS ORDERED: IMPACT LIQ 1000 ML BAG PEG SCH (21:00)
[2016-11-22 21:32] LABS: HEMATOCRIT 35.3 % (37-47); MEAN CELL VOLUME 87.6 fL (80-100); MEAN CORPUSCULAR HGB CONC 30.9 g/dl (32-36); MEAN PLATELET VOLUME 9.8 fL (7.4-10.4); PLATELET COUNT 176 K/uL (130-400); RED BLOOD COUNT 4.03 M/uL (4.2-5.4); WHITE BLOOD COUNT 6.59 K/uL (4.8-10.8)
[2016-11-22 21:46] LABS: BUN/CREATININE RATIO 41.1 (10-20); CALCIUM 9.6 mg/dl (8.5-10.1); CREATININE 0.74 mg/dl (0.60-1.20); POTASSIUM 4.7 mmol/L (3.5-5.1)
[2016-11-22 22:00] LABS: BETA-HYDROXYBUTYRATE 3.12 mg/dL (0.2-2.81)
[2016-11-22] MEDS: DEXTROSE 5% IV SCH (22:01)
[2016-11-22] MEDS: DOXYCYCLINE IV 100 MG in DEXTROSE 5% 100ML 100 ML IV SCH (22:01)
[2016-11-22] MEDS: ERTAPENEM IV 1 GM in SODIUM CHLOR 0.9% AD-VAN 50ML IV SCH (22:01)
[2016-11-22] MEDS: LEVETIRACETAM IV SCH (22:01)
[2016-11-22] MEDS: METRONIDAZOLE / NSS 500 MG in PREMIXED NSS 100 ML IV SCH (22:02)
[2016-11-22] MEDS: GABAPENTIN 250 MG/5 ML 470 ML BTL PEG SCH (22:08)
[2016-11-22] MEDS: LACTOBACILLUS ACIDOPHILUS (FLORANEX) TAB PEG SCH (22:09)
[2016-11-22] MEDS: DIPYRIDAMOLE/ASPIRIN CAP PO SCH (22:09)
[2016-11-22] MEDS: BusPIRone 15 MG TAB PEG SCH (22:09)
[2016-11-22] MEDS: ALBUTEROL HFA 8 GM INHALER INH SCH (22:10)
[2016-11-22] MEDS: PENTOSAN POLYSULFATE SODIUM 100 MG CAP PO SCH (22:12)
[2016-11-22] MEDS: INSULIN GLARGINE SOLOSTAR 100 UNITS/ML 3 ML PEN SC SCH (22:14)
[2016-11-22] MEDS: INSULIN ASPART 100 UNITS/ML 3 ML PEN SC SCH (22:15)
[2016-11-22] MEDS: ACETAMINOPHEN 325 MG TAB PO PRN (22:25)
[2016-11-22] MEDS: HEPARIN SOD 5000 UNIT/0.5 ML CARP SQ SCH (22:43)
[2016-11-22] MEDS ORDERED: NURSING VERBAL MED ORDER ONE (23:45)
[2016-11-23] VITALS (7 sets, daily range): BP systolic 111–163; BP diastolic 61–79; PULSE 66–80; TEMP 36.7–37.5; O2SAT 100
[2016-11-23] MEDS: INSULIN ASPART 100 UNITS/ML 3 ML PEN SC SCH ×5 (00:17→23:55)
[2016-11-23] MEDS: ALBUT/IPRATROP 3MG/0.5MG NEB 3 ML VIAL INH SCH ×4 (02:05→21:00)
[2016-11-23] MEDS: SODIUM CHLORIDE 0.9% 1000ML 1,000 ML IV SCH (05:57)
[2016-11-23] MEDS: METRONIDAZOLE / NSS 500 MG in PREMIXED NSS 100 ML IV SCH ×3 (06:00→21:57)
[2016-11-23] MEDS: HEPARIN SOD 5000 UNIT/0.5 ML CARP SQ SCH ×3 (06:01→20:56)
[2016-11-23] MEDS: LORAZEPAM 0.5 MG TAB PEG SCH ×2 (09:00→11:52)
[2016-11-23] MEDS ORDERED: LIDODERM (LIDOCAINE) PATCH 5% TD PRN (09:00)
[2016-11-23] MEDS ORDERED: GABAPENTIN 250 MG/5 ML 470 ML BTL PEG SCH (09:00)
[2016-11-23] MEDS ORDERED: ERTAPENEM 1 GM ADDVIAL IV SCH (09:00)
[2016-11-23] MEDS: NUTREN PEG SCH ×3 (09:10→20:51)
[2016-11-23] MEDS: CLOPIDOGREL BISULFATE 75 MG TAB PEG SCH (09:10)
[2016-11-23] MEDS: DIPYRIDAMOLE/ASPIRIN CAP PO SCH ×2 (09:10→20:46)
[2016-11-23] MEDS: ALLOPURINOL 100 MG TAB PEG SCH (09:11)
[2016-11-23 09:13] LABS: ALKALINE PHOSPHATASE 230 U/L (45-117); ALT/SGPT 96 U/L (12-78); AST/SGOT 65 U/L (15-37); BLOOD UREA NITROGEN 25 mg/dl (7-18); BUN/CREATININE RATIO 35.7 (10-20); CALCIUM 9.1 mg/dl (8.5-10.1); CARBON DIOXIDE 24 mmol/L (21-32); CHLORIDE 104 mmol/L (98-107); GLUCOSE 147 mg/dl (70-99); SODIUM 138 mmol/L (136-145)
[2016-11-23] MEDS: FLUCONAZOLE 100 MG TAB PEG SCH (09:15)
[2016-11-23] MEDS: ESCITALOPRAM OXALATE 20 MG TAB PEG SCH (09:15)
[2016-11-23] MEDS: AMLODIPINE BESYLATE 5 MG TAB PEG SCH (09:15)
[2016-11-23] MEDS: BusPIRone 15 MG TAB PEG SCH ×2 (09:16→20:45)
[2016-11-23] MEDS: PENTOSAN POLYSULFATE SODIUM 100 MG CAP PO SCH ×2 (09:16→20:45)
[2016-11-23] MEDS: LACTOBACILLUS ACIDOPHILUS (FLORANEX) TAB PEG SCH ×3 (09:16→20:45)
[2016-11-23] MEDS: ALBUTEROL HFA 8 GM INHALER INH SCH ×2 (09:17→20:47)
[2016-11-23] MEDS: LEVETIRACETAM IV SCH (09:18)
[2016-11-23] MEDS: DEXTROSE 5% IV SCH (09:18)
[2016-11-23] MEDS: GABAPENTIN 250 MG/5 ML 470 ML BTL PEG SCH ×3 (09:18→23:46)
[2016-11-23] MEDS: LIFITEGRAST 5% OP SCH ×2 (09:22→20:51)
[2016-11-23] MEDS: SYSTANE~ORDER AWAITING ACTION SCH ×4 (09:23→23:57)
[2016-11-23] MEDS: DOXYCYCLINE IV 100 MG in DEXTROSE 5% 100ML 100 ML IV SCH (09:26)
--- NOTE | 2016-11-23 10:15 | Progress Note ---
Progress Note Date of Service Nov 23, 2016. Progress Note ID Consult Dictated #[id number] A/P: 1. Aspiration pneumonitis, ? early pna -Can continue abx for now pending culture -No systemic signs infection at this time -thank you
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
--- NOTE | 2016-11-23 13:06 | DIAGNOSTIC IMAGING REPORT ---
HEAD WITHOUT CONTRAST (CT) CLINICAL HISTORY: 71 years-old Female with acute altered mental status. TECHNIQUE: Multiple axial CT images of the head were obtained without contrast. A dose lowering technique was utilized adhering to the principles of ALARA. CT DOSE: 537.48 mGy.cm COMPARISON: Head CT 07/30/2016. FINDINGS: No acute intracranial hemorrhage, midline shift, mass, large territorial ischemia or abnormal extra-axial collection. 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 Patchy areas of low-attenuation within the periventricular white matter compatible with chronic microischemic changes. The calvarium is intact. The mastoid air cells, and middle ear cavities are clear. Mild to moderate ethmoid, maxillary and left frontal sinus disease is present. IMPRESSION: 1. No acute intracranial abnormality. 2. 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 3. Background atrophy with chronic microvascular ischemic changes. The above report was generated using voice recognition software. It may contain grammatical, syntax or spelling errors. Electronically signed by: Aman Nicholas M.D. 11/23/2016 1:04 PM Dictated Date/Time: 11/23/2016 1:01 PM
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
[2016-11-23] MEDS: ACETAMINOPHEN 325 MG TAB PO PRN (15:28)
[2016-11-23] MEDS: LEVETIRACETAM IV 500 MG in DEXTROSE 5% 100ML 100 ML IV SCH (20:47)
[2016-11-23] MEDS: INSULIN GLARGINE SOLOSTAR 100 UNITS/ML 3 ML PEN SC SCH (20:55)
[2016-11-23] MEDS: ERTAPENEM IV 1 GM in SODIUM CHLOR 0.9% AD-VAN 50ML IV SCH (21:07)
[2016-11-23] MEDS ORDERED: MELATONIN 3 MG TAB PO STA (22:47)
[2016-11-24] VITALS (9 sets, daily range): BP systolic 120–184; BP diastolic 61–80; PULSE 75–86; TEMP 36.6–37.4; O2SAT 96–100
[2016-11-24] MEDS ORDERED: MELATONIN: ORDER AWAITING ACTION SCH
[2016-11-24] MEDS: ALBUT/IPRATROP 3MG/0.5MG NEB 3 ML VIAL INH SCH ×4 (02:11→19:12)
[2016-11-24 04:56] LABS: HEMATOCRIT 33.2 % (37-47); MEAN CELL VOLUME 86.5 fL (80-100); MEAN CORPUSCULAR HGB CONC 30.1 g/dl (32-36); MEAN PLATELET VOLUME 9.3 fL (7.4-10.4); PLATELET COUNT 180 K/uL (130-400); RED BLOOD COUNT 3.84 M/uL (4.2-5.4); WHITE BLOOD COUNT 6.14 K/uL (4.8-10.8)
[2016-11-24 05:29] LABS: BUN/CREATININE RATIO 38.5 (10-20); CALCIUM 8.9 mg/dl (8.5-10.1); CREATININE 0.52 mg/dl (0.60-1.20); MAGNESIUM 2.1 mg/dl (1.8-2.4); POTASSIUM 4.2 mmol/L (3.5-5.1)
[2016-11-24] MEDS: METRONIDAZOLE / NSS 500 MG in PREMIXED NSS 100 ML IV SCH ×3 (05:59→20:55)
[2016-11-24] MEDS: INSULIN ASPART 100 UNITS/ML 3 ML PEN SC SCH ×3 (06:00→18:39)
[2016-11-24] MEDS: HEPARIN SOD 5000 UNIT/0.5 ML CARP SQ SCH ×3 (06:04→21:01)
[2016-11-24] MEDS: NUTREN PEG SCH ×3 (07:38→20:10)
[2016-11-24] MEDS: SYSTANE~ORDER AWAITING ACTION SCH ×3 (07:38→23:31)
[2016-11-24] MEDS: PENTOSAN POLYSULFATE SODIUM 100 MG CAP PO SCH ×2 (07:39→20:04)
[2016-11-24] MEDS: FLUCONAZOLE 100 MG TAB PEG SCH (07:39)
[2016-11-24] MEDS: DIPYRIDAMOLE/ASPIRIN CAP PO SCH ×2 (07:39→20:03)
[2016-11-24] MEDS: CLOPIDOGREL BISULFATE 75 MG TAB PEG SCH (07:39)
[2016-11-24] MEDS: ESCITALOPRAM OXALATE 20 MG TAB PEG SCH (07:39)
[2016-11-24] MEDS: BusPIRone 15 MG TAB PEG SCH ×2 (07:39→20:00)
[2016-11-24] MEDS: LACTOBACILLUS ACIDOPHILUS (FLORANEX) TAB PEG SCH ×3 (07:39→20:01)
[2016-11-24] MEDS: ALLOPURINOL 100 MG TAB PEG SCH (07:40)
[2016-11-24] MEDS: AMLODIPINE BESYLATE 5 MG TAB PEG SCH (07:40)
[2016-11-24] MEDS: LIFITEGRAST 5% OP SCH ×2 (07:41→19:58)
[2016-11-24] MEDS: ALBUTEROL HFA 8 GM INHALER INH SCH ×2 (07:42→19:59)
[2016-11-24] MEDS: LORAZEPAM 0.5 MG TAB PEG SCH (07:45)
[2016-11-24] MEDS: GABAPENTIN 250 MG/5 ML 470 ML BTL PEG SCH ×3 (07:45→21:39)
[2016-11-24] MEDS: LEVETIRACETAM IV 500 MG in DEXTROSE 5% 100ML 100 ML IV SCH ×2 (09:34→19:57)
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
[2016-11-24] MEDS: ACETAMINOPHEN 325 MG TAB PO PRN (15:58)
[2016-11-24] MEDS: MELATONIN 3 MG TAB PO SCH (20:04)
[2016-11-24] MEDS: QUETIAPINE FUMARATE 25 MG TAB PO SCH (20:05)
[2016-11-24] MEDS: INSULIN GLARGINE SOLOSTAR 100 UNITS/ML 3 ML PEN SC SCH (21:00)
[2016-11-24] MEDS: ERTAPENEM IV 1 GM in SODIUM CHLOR 0.9% AD-VAN 50ML IV SCH (22:11)
[2016-11-25] MEDS: INSULIN ASPART 100 UNITS/ML 3 ML PEN SC SCH ×2 (00:04→05:52)
[2016-11-25 00:19] VITALS: O2SAT 100
[2016-11-25] MEDS: ALBUT/IPRATROP 3MG/0.5MG NEB 3 ML VIAL INH SCH ×4 (01:26→19:04)
[2016-11-25 04:00] VITALS: BP 139/67; PULSE 69; TEMP 36.4; O2SAT 99
[2016-11-25 04:03] VITALS: O2SAT 100
[2016-11-25] MEDS: METRONIDAZOLE / NSS 500 MG in PREMIXED NSS 100 ML IV SCH (05:19)
[2016-11-25] MEDS: HEPARIN SOD 5000 UNIT/0.5 ML CARP SQ SCH ×3 (05:24→21:38)
[2016-11-25 06:35] LABS: HEMATOCRIT 32.1 % (37-47); MEAN CELL VOLUME 87.5 fL (80-100); MEAN CORPUSCULAR HEMOGLOBIN 28.1 pg (25-34); MEAN CORPUSCULAR HGB CONC 32.1 g/dl (32-36); MEAN PLATELET VOLUME 9.1 fL (7.4-10.4); PLATELET COUNT 177 K/uL (130-400); RED BLOOD COUNT 3.67 M/uL (4.2-5.4); WHITE BLOOD COUNT 6.85 K/uL (4.8-10.8)
[2016-11-25 06:59] LABS: BUN/CREATININE RATIO 47.6 (10-20); CALCIUM 9.2 mg/dl (8.5-10.1); CREATININE 0.47 mg/dl (0.60-1.20); MAGNESIUM 2.2 mg/dl (1.8-2.4); POTASSIUM 4.1 mmol/L (3.5-5.1)
[2016-11-25] MEDS: SYSTANE~ORDER AWAITING ACTION SCH ×2 (08:00→16:00)
[2016-11-25] MEDS: NUTREN PEG SCH ×3 (08:18→19:37)
[2016-11-25] MEDS: LEVETIRACETAM IV 500 MG in DEXTROSE 5% 100ML 100 ML IV SCH ×2 (08:18→20:37)
[2016-11-25] MEDS: GABAPENTIN 250 MG/5 ML 470 ML BTL PEG SCH ×3 (08:18→22:56)
[2016-11-25] MEDS: LIFITEGRAST 5% OP SCH ×2 (08:19→19:29)
[2016-11-25] MEDS: ALBUTEROL HFA 8 GM INHALER INH SCH ×2 (08:19→19:36)
[2016-11-25] MEDS: CLOPIDOGREL BISULFATE 75 MG TAB PEG SCH (08:20)
[2016-11-25] MEDS: DIPYRIDAMOLE/ASPIRIN CAP PO SCH ×2 (08:20→19:32)
[2016-11-25] MEDS: LACTOBACILLUS ACIDOPHILUS (FLORANEX) TAB PEG SCH ×3 (08:20→19:31)
[2016-11-25] MEDS: ESCITALOPRAM OXALATE 20 MG TAB PEG SCH (08:20)
[2016-11-25] MEDS: AMLODIPINE BESYLATE 5 MG TAB PEG SCH (08:20)
[2016-11-25] MEDS: PENTOSAN POLYSULFATE SODIUM 100 MG CAP PO SCH ×2 (08:21→19:33)
[2016-11-25] MEDS: FLUCONAZOLE 100 MG TAB PEG SCH (08:22)
[2016-11-25] MEDS: ALLOPURINOL 100 MG TAB PEG SCH (08:23)
[2016-11-25] MEDS: LORAZEPAM 0.5 MG TAB PEG SCH (08:26)
[2016-11-25] MEDS: BusPIRone 15 MG TAB PEG SCH ×2 (09:42→19:31)
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
[2016-11-25 11:43] VITALS: BP 137/56; PULSE 69; TEMP 37.2; O2SAT 98
[2016-11-25] MEDS ORDERED: PHARMACY GLYCEMIC MGMT CONSULT SCH (11:53)
--- NOTE | 2016-11-25 12:35 | Pharmacy Progress Note ---
Glycemic Control Intl Consult Date of Service Nov 25, 2016. Scope Glycemic Pharmacist consulted by Dr Chandu Cavazos on 11/25/16 for glycemic control and to write orders per [facility] inpatient glycemic control protocol Objective Weight (Kilograms): 70.400 Accuchecks BSG (last 24hrs): Test 11/24/16 13:35 11/24/16 18:34 11/24/16 23:55 11/25/16 05:47 Bedside Glucose 200 mg/dl (70-90) 250 mg/dl (70-90) 320 mg/dl (70-90) 141 mg/dl (70-90) Test 11/25/16 06:00 Random Glucose 160 mg/dl (70-99) Laboratory Data (last 24hrs) Test 11/25/16 06:00 Anion Gap 7.0 mmol/L BUN/Creatinine Ratio 47.6 Blood Urea Nitrogen 22 mg/dl Creatinine 0.47 mg/dl Potassium Level 4.1 mmol/L Sodium Level 138 mmol/L White Blood Count 6.85 K/uL HbA1c 8.4% 11/16/16 Recent Pertinent Medications Outpatient Anti-diabetic Regimen: * Lantus 30 units SQ Q HS * Novolog per sliding scale The patient is currently receiving: * Basal insulin: Lantus 30 units every 24 hours - dosed at bedtime * Correctional Insulin: Novolog Correction per scale Q 6 hours Goal Range: Low 120 mg/dL - High 160 mg/dL Correction Factor: 20 mg/dL/unit * Prandial insulin: Per carb ratio of 1 unit per -- grams CHO consumed Risk Factors for Insulin Resistance: * Infection: receiving Ertapenem for UTI, possible PNX * Diet: Nutren 2.0 feeds 267mL (~58gm CHO per serving) TID @ 0800,1400,2000 Assessment & Plan ASSESSMENT: 11/25/16 * Type 2 diabetic with h/o quadriplegia, vent dependent and tube feed dependent * Fasting BSGs have been near goal with current Lantus dose however BSGs quickly trend up throughout the day due to lack of prandial insulin coverage given with bolus tube feeds. Also BSGs were being checked Q 6 hours, but Nutren feeds are timed for 08,14,20 - thus BSGs that were checked were not always reflective of a "pre-meal" state. * Will begin scheduled dose of REGULAR insulin with each feeding to cover carbs. * Will change BSG monitoring frequency to TID prior to each feeding rather than Q 6 hours * Will continue correctional insulin that will be administered for BSG elevations in addition to the scheduled prandial insulin dose PLAN FOR INPATIENT GLYCEMIC CONTROL: * Continuing Lantus 30 units SQ Q PM * D/C Novolog and begin REGULAR insulin instead due to better p'kinetic profile for bolus feeds * Give 5 units REGULAR insulin with each Nutren 2.0 267mL bolus feed * Continuing correction factor to 20 mg/dl/unit * Changing goal range to Low 110 mg/dL - High 140 mg/dL * Please note that the plan above was derived based on current level of insulin resistance and hospital stress. These recommendations are appropriate for inpatient admission only. Plan of care upon discharge will need to be reassessed to avoid potential outpatient hypo/hyperglycemia. Thank you.
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
[2016-11-25] MEDS: INSULIN HUMAN REGULAR SC SCH ×4 (14:17→20:36)
[2016-11-25 15:25] VITALS: BP 111/51; PULSE 63; TEMP 36.6; O2SAT 97
[2016-11-25 19:21] VITALS: BP 125/60; PULSE 70; TEMP 37.1; O2SAT 99
[2016-11-25] MEDS: MELATONIN 3 MG TAB PO SCH (19:33)
[2016-11-25] MEDS: QUETIAPINE FUMARATE 25 MG TAB PO SCH (19:34)
[2016-11-25] MEDS: INSULIN GLARGINE SOLOSTAR 100 UNITS/ML 3 ML PEN SC SCH (20:34)
[2016-11-25] MEDS: ERTAPENEM IV 1 GM in SODIUM CHLOR 0.9% AD-VAN 50ML IV SCH (21:16)
[2016-11-26] VITALS: BP 139/64; PULSE 68; TEMP 37.1; O2SAT 95
[2016-11-26] MEDS: ALBUT/IPRATROP 3MG/0.5MG NEB 3 ML VIAL INH SCH ×4 (01:45→21:00)
[2016-11-26 04:00] VITALS: BP 171/70; PULSE 69; TEMP 37; O2SAT 100
[2016-11-26 04:45] LABS: CALCIUM 9.1 mg/dl (8.5-10.1); CREATININE 0.52 mg/dl (0.60-1.20); MAGNESIUM 2.1 mg/dl (1.8-2.4); POTASSIUM 4.1 mmol/L (3.5-5.1)
[2016-11-26] MEDS: HEPARIN SOD 5000 UNIT/0.5 ML CARP SQ SCH ×3 (05:48→20:09)
[2016-11-26] MEDS: SYSTANE~ORDER AWAITING ACTION SCH ×4 (08:00→21:37)
[2016-11-26] MEDS: NUTREN PEG SCH ×3 (08:00→20:01)
[2016-11-26 08:01] VITALS: BP 133/49; PULSE 66; TEMP 37.6; O2SAT 100
[2016-11-26] MEDS: BusPIRone 15 MG TAB PEG SCH ×2 (09:00→21:34)
[2016-11-26] MEDS: ALBUTEROL HFA 8 GM INHALER INH SCH ×2 (09:00→21:38)
[2016-11-26] MEDS: PENTOSAN POLYSULFATE SODIUM 100 MG CAP PO SCH ×2 (09:21→21:37)
[2016-11-26] MEDS: LORAZEPAM 0.5 MG TAB PEG SCH (09:21)
[2016-11-26] MEDS: CLOPIDOGREL BISULFATE 75 MG TAB PEG SCH (09:23)
[2016-11-26] MEDS: AMLODIPINE BESYLATE 5 MG TAB PEG SCH (09:23)
[2016-11-26] MEDS: ALLOPURINOL 100 MG TAB PEG SCH (09:23)
[2016-11-26] MEDS: LACTOBACILLUS ACIDOPHILUS (FLORANEX) TAB PEG SCH ×3 (09:23→21:36)
[2016-11-26] MEDS: FLUCONAZOLE 100 MG TAB PEG SCH (09:24)
[2016-11-26] MEDS: ESCITALOPRAM OXALATE 20 MG TAB PEG SCH (09:24)
[2016-11-26] MEDS: DIPYRIDAMOLE/ASPIRIN CAP PO SCH ×2 (09:24→21:36)
[2016-11-26] MEDS: LIFITEGRAST 5% OP SCH ×2 (09:28→21:33)
[2016-11-26] MEDS: LEVETIRACETAM IV 500 MG in DEXTROSE 5% 100ML 100 ML IV SCH ×2 (09:32→21:32)
[2016-11-26] MEDS: GABAPENTIN 250 MG/5 ML 470 ML BTL PEG SCH ×3 (09:35→21:37)
[2016-11-26] MEDS: INSULIN HUMAN REGULAR SC SCH ×6 (09:38→20:08)
[2016-11-26 12:00] VITALS: BP 119/51; PULSE 87; TEMP 37.4; O2SAT 98
--- NOTE | 2016-11-26 14:55 | Pharmacy Progress Note ---
Glycemic Control Progress Note Date of Service Nov 26, 2016. Scope Glycemic Pharmacist consulted for glycemic control to write orders per [facility] inpatient glycemic control protocol. Objective Accuchecks BSG (last 24hrs): Test 11/25/16 20:01 11/26/16 04:08 11/26/16 13:41 Bedside Glucose 225 mg/dl (70-90) 207 mg/dl (70-90) Random Glucose 159 mg/dl (70-99) Recent Pertinent Medications The patient is currently receiving: * Basal insulin: Lantus 30 units every 24 hours - dosed at bedtime * Correctional Insulin: REGULAR insulin correction per scale TID @ ,, Goal Range: Low 110 mg/dL - High 140 mg/dL Correction Factor: 20 mg/dL/unit * Prandial insulin: REGULAR insulin 5 units with every Nutren tube feed, scheduled TID @ ,, Outpatient Anti-Diabetic Meds * Lantus 30 units SQ Q HS * Novolog per sliding scale Assessment & Plan ASSESSMENT: 11/25/16 * Type 2 diabetic with h/o quadriplegia, vent dependent and tube feed dependent * Fasting BSGs have been near goal with current Lantus dose however BSGs quickly trend up throughout the day due to lack of prandial insulin coverage given with bolus tube feeds. Also BSGs were being checked Q 6 hours, but Nutren feeds are timed for , - thus BSGs that were checked were not always reflective of a "pre-meal" state. * Will begin scheduled dose of REGULAR insulin with each feeding to cover carbs. * Will change BSG monitoring frequency to TID prior to each feeding rather than Q 6 hours * Will continue correctional insulin that will be administered for BSG elevations in addition to the scheduled prandial insulin dose 11/26/16 * BSG's ranging 149-225 mg/dL since significant adjustment of regimen yesterday * Will increase regular insulin provided with tubefeeds * No adjustment to Lantus for now - AM fasting BSG at 149 mg/dL. May need to increase tomorrow if it continues to trend up. PLAN FOR INPATIENT GLYCEMIC CONTROL: * Basal insulin: Lantus 30 units every 24 hours - dosed at bedtime * Correctional Insulin: REGULAR insulin correction per scale TID @ ,,20 Goal Range: Low 110 mg/dL - High 140 mg/dL Correction Factor: 20 mg/dL/unit * Prandial insulin: REGULAR insulin 7 units with every Nutren tube feed, scheduled TID @ , * Please note that the plan above was derived based on current level of insulin resistance and hospital stress. These recommendations are appropriate for inpatient admission only. Plan of care upon discharge will need to be reassessed to avoid potential outpatient hypo/hyperglycemia. Thank you.
[2016-11-26 15:31] VITALS: BP 145/61; PULSE 67; TEMP 37.2; O2SAT 99
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
[2016-11-26 19:00] VITALS: BP 158/66; TEMP 36.7; O2SAT 99
[2016-11-26] MEDS ORDERED: INSULIN HUMAN REGULAR SC SCH (20:00)
[2016-11-26] MEDS: ACETAMINOPHEN 325 MG TAB PO PRN (20:03)
[2016-11-26] MEDS: INSULIN GLARGINE SOLOSTAR 100 UNITS/ML 3 ML PEN SC SCH (20:09)
[2016-11-26] MEDS: QUETIAPINE FUMARATE 25 MG TAB PO SCH (21:31)
[2016-11-26] MEDS: ERTAPENEM IV 1 GM in SODIUM CHLOR 0.9% AD-VAN 50ML IV SCH (21:33)
[2016-11-26] MEDS: MELATONIN 3 MG TAB PO SCH (21:34)
[2016-11-27] VITALS (10 sets, daily range): BP systolic 145–180; BP diastolic 56–91; PULSE 61–74; TEMP 36.5–37; O2SAT 98–100
[2016-11-27] MEDS: ALBUT/IPRATROP 3MG/0.5MG NEB 3 ML VIAL INH SCH ×4 (01:27→19:43)
[2016-11-27] MEDS: HEPARIN SOD 5000 UNIT/0.5 ML CARP SQ SCH ×3 (06:24→21:42)
[2016-11-27] MEDS: NUTREN PEG SCH ×3 (07:54→19:42)
[2016-11-27] MEDS: LIFITEGRAST 5% OP SCH ×2 (07:57→20:35)
[2016-11-27] MEDS: PENTOSAN POLYSULFATE SODIUM 100 MG CAP PO SCH ×2 (07:59→20:41)
[2016-11-27] MEDS: BusPIRone 15 MG TAB PEG SCH ×2 (08:00→20:41)
[2016-11-27] MEDS: SYSTANE~ORDER AWAITING ACTION SCH ×3 (08:00→23:12)
[2016-11-27] MEDS: INSULIN HUMAN REGULAR SC SCH ×6 (08:00→20:29)
[2016-11-27] MEDS: ALLOPURINOL 100 MG TAB PEG SCH (08:01)
[2016-11-27] MEDS: DIPYRIDAMOLE/ASPIRIN CAP PO SCH ×2 (08:01→20:42)
[2016-11-27] MEDS: FLUCONAZOLE 100 MG TAB PEG SCH (08:01)
[2016-11-27] MEDS: AMLODIPINE BESYLATE 5 MG TAB PEG SCH (08:02)
[2016-11-27] MEDS: ESCITALOPRAM OXALATE 20 MG TAB PEG SCH (08:03)
[2016-11-27] MEDS: CLOPIDOGREL BISULFATE 75 MG TAB PEG SCH (08:03)
[2016-11-27] MEDS: LEVETIRACETAM IV 500 MG in DEXTROSE 5% 100ML 100 ML IV SCH ×2 (08:04→20:30)
[2016-11-27] MEDS: GABAPENTIN 250 MG/5 ML 470 ML BTL PEG SCH ×3 (08:04→23:12)
[2016-11-27] MEDS: LACTOBACILLUS ACIDOPHILUS (FLORANEX) TAB PEG SCH ×3 (08:05→20:42)
[2016-11-27] MEDS: ALBUTEROL HFA 8 GM INHALER INH SCH ×2 (09:00→20:35)
[2016-11-27] MEDS ORDERED: LORAZEPAM 0.5 MG TAB PEG PRN (09:00)
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
[2016-11-27] MEDS: ACETAMINOPHEN 325 MG TAB PO PRN (16:28)
[2016-11-27] MEDS: INSULIN GLARGINE SOLOSTAR 100 UNITS/ML 3 ML PEN SC SCH (20:27)
[2016-11-27] MEDS: QUETIAPINE FUMARATE 25 MG TAB PO SCH (20:40)
[2016-11-27] MEDS: ERTAPENEM IV 1 GM in SODIUM CHLOR 0.9% AD-VAN 50ML IV SCH (21:37)
[2016-11-27] MEDS: MELATONIN 3 MG TAB PO SCH (23:11)
[2016-11-28] MEDS: ALBUT/IPRATROP 3MG/0.5MG NEB 3 ML VIAL INH SCH ×2 (02:42→08:05)
[2016-11-28 04:00] VITALS: BP 174/89; PULSE 72; TEMP 37.4; O2SAT 98
[2016-11-28 04:48] LABS: HEMATOCRIT 29.7 % (37-47); MEAN CELL VOLUME 87.4 fL (80-100); MEAN CORPUSCULAR HEMOGLOBIN 28.8 pg (25-34); MEAN PLATELET VOLUME 9.5 fL (7.4-10.4); PLATELET COUNT 211 K/uL (130-400)
[2016-11-28 05:06] VITALS: BP 130/54; PULSE 68; O2SAT 99
[2016-11-28] MEDS: HEPARIN SOD 5000 UNIT/0.5 ML CARP SQ SCH (05:40)
[2016-11-28 07:38] VITALS: BP 136/55; PULSE 66; TEMP 37; O2SAT 98
[2016-11-28] MEDS ORDERED: INSULIN HUMAN REGULAR SC SCH (08:00)
[2016-11-28] MEDS: INSULIN HUMAN REGULAR SC SCH (08:00)
[2016-11-28] MEDS: SYSTANE~ORDER AWAITING ACTION SCH (08:00)
[2016-11-28] MEDS: NUTREN PEG SCH (08:00)
[2016-11-28 08:30] VITALS: O2SAT 97
[2016-11-28] MEDS: LIFITEGRAST 5% OP SCH (09:00)
[2016-11-28] MEDS: LEVETIRACETAM IV 500 MG in DEXTROSE 5% 100ML 100 ML IV SCH (09:49)
[2016-11-28] MEDS: ALBUTEROL HFA 8 GM INHALER INH SCH (09:50)
[2016-11-28] MEDS: ESCITALOPRAM OXALATE 20 MG TAB PEG SCH (09:51)
[2016-11-28] MEDS: LACTOBACILLUS ACIDOPHILUS (FLORANEX) TAB PEG SCH (09:51)
[2016-11-28] MEDS: ALLOPURINOL 100 MG TAB PEG SCH (09:52)
[2016-11-28] MEDS: AMLODIPINE BESYLATE 5 MG TAB PEG SCH (09:52)
[2016-11-28] MEDS: DIPYRIDAMOLE/ASPIRIN CAP PO SCH (09:52)
[2016-11-28] MEDS: CLOPIDOGREL BISULFATE 75 MG TAB PEG SCH (09:52)
[2016-11-28] MEDS ORDERED: SRQ25 PO ×2 (09:53)
[2016-11-28] MEDS: PENTOSAN POLYSULFATE SODIUM 100 MG CAP PO SCH (09:53)
--- NOTE | 2016-11-28 09:59 | Discharge Instructions ---
Discharge Instructions Date of Service Nov 28, 2016. Admission Reason for Admission: Aspiration Pneumonia Discharge Discharge Diagnosis / Problem: Altered mental status, hallucination, possibly medication related Discharge Goals Goal(s): Decrease discomfort, Improve function, Increase independence Activity Recommendations Activity Limitations: resume your previous activity . Instructions / Follow-Up Instructions / Follow-Up Dr. Turner in 1 week Neurology as scheduled prior Current Hospital Diet Patient's current hospital diet: Discharge Diet Recommended Diet: N/A (Tube feeds) Pending Studies Studies pending at discharge: yes List of pending studies: Keppra and lamicatal levels Laboratory Results Hemoglobin A1c Test 11/16/16 09:30 Range/Units Estimated Average Glucose 203 mg/dl Hemoglobin A1c 8.7 H 4.5-5.6 % Lipid Panel Test 11/16/16 09:30 Range/Units Triglycerides Level 748 H 0-150 mg/dl Cholesterol Level 214 H 0-200 mg/dl HDL Cholesterol 32 mg/dl Cholesterol/HDL Ratio 6.7 LDL Cholesterol, Calculated mg/dl Medical Emergencies . Who to Call and When: Medical Emergencies: If at any time you feel your situation is an emergency, please call 911 immediately. . Non-Emergent Contact Non-Emergency issues call your: Primary Care Provider, Neurologist . . "Provider Documentation" section prepared by Itzel Polanco. . VTE Core Measure Inpt VTE Proph given/why not?: Unfractionated heparin SQ
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
[2016-11-28] MEDS: BusPIRone 15 MG TAB PEG SCH (10:04)
[2016-11-28] MEDS: FLUCONAZOLE 100 MG TAB PEG SCH (10:05)
[2016-11-28] MEDS: GABAPENTIN 250 MG/5 ML 470 ML BTL PEG SCH (10:05)
[2016-11-28 10:52] VITALS: BP 136/55; PULSE 66; TEMP 37; O2SAT 97
[2016-11-28] MEDS: ACETAMINOPHEN 325 MG TAB PO PRN (11:16)
== END 2016-11-28 13:15 | disposition home health service (06) | DRG 177 ==
LOC: C.EDB 14:06 → C.2E 18:28 → ENRESERV 18:37
PROVIDERS: ADMIT Internal Medicine; ATTEND Family Medicine
PROC: 5A09557 Assistance with Respiratory Ventilation, Greater than 96 Consecutive Hours, Continuous Positive Airway Pressure (ICD-10-PCS; principal; 2016-11-22)
DX: J69.0 Pneumonitis due to inhalation of food and vomit (principal); G93.41 Metabolic encephalopathy; G92 Toxic encephalopathy; T50.905A Adverse effect of unspecified drugs, medicaments and biological substances, initial encounter; G82.50 Quadriplegia, unspecified; Z99.11 Dependence on respirator [ventilator] status; J96.10 Chronic respiratory failure, unspecified whether with hypoxia or hypercapnia; B37.0 Candidal stomatitis; J44.9 Chronic obstructive pulmonary disease, unspecified; N30.20 Other chronic cystitis without hematuria; E11.9 Type 2 diabetes mellitus without complications; G40.909 Epilepsy, unspecified, not intractable, without status epilepticus; E66.9 Obesity, unspecified; Z51.81 Encounter for therapeutic drug level monitoring; Z79.899 Other long term (current) drug therapy; Z79.4 Long term (current) use of insulin; Z87.01 Personal history of pneumonia (recurrent); Z16.20 Resistance to unspecified antibiotic; Z68.30 Body mass index [BMI] 30.0-30.9, adult; Z83.3 Family history of diabetes mellitus; Z82.49 Family history of ischemic heart disease and other diseases of the circulatory system

== ENCOUNTER → 2016-12-05 | Outpatient (CLI) | payer OTHER ==
[~2016-12-05] MED LIST changes: +ACET-1256 PEG; +AGG PEG; -AGGRENOX PEG; +ALL100 PEG; -ALLO100T PEG; +AMLO-110 PEG; -AMLO2.5T PEG; -BACL10TA PEG; -BISA10SU5 PR; +BISA10SU7 PR; -BUSP15TA70 PEG; +BUSP1TAB46 PEG; +CHOL1TAB46 PEG; -EPGI2M INJ; +ESCI1TAB10 PEG; +GENT0.1C2 FLUSH; -HYPO0.01 TOP; +KPP250 PEG; +LAMO150T32 PEG; +LAMO200T38 PEG; -LAMO200T38 PO; -LAMO25TA PEG; -LCTX PEG; +LDDP5 TOP; -LEVE100S10 PEG; +LEVE250T PEG; -LEVO-17 GT; +LEVO-17 PEG; -LEXAPRO PEG; +LIFI5DRO; +LIFI5DRO OP; -LIFI5DRO OPB; +LORA-741 PO; -MELA1CAP PO; +MELA1TAB4 PEG; +MELA1TAB5 PO; +METH1INJ SC; -METH1INJ SQ; -NF656 TOP; -NRN600 PEG; +NVLG; -NVLG SC; +ONDA4TAB46 PEG; -ONDA4TAB65 PEG; +POLYSOL4 OP; -POLYSOL4 OPB; +PROB1TAB16 PEG; -PROP1SOL OPB; +SRQ25 PO; -TYLOTC500 PEG; -WHITOIN2 OPB; -[UNRECOGNIZED DRUG - CODE] INJ; +[UNRECOGNIZED DRUG - CODE] PEG
== END | disposition home or self-care (01) ==
LOC: C.PATHSPEC 14:13
PROVIDERS: ATTEND Urology
DX: R31.29 Other microscopic hematuria (principal)

== ENCOUNTER 2016-12-20 15:29 | Inpatient (IN) | payer OTHER ==
[~2016-12-20] VITALS: Ht 152.4 cm; Wt 81.7 kg
[~2016-12-20 15:29] MED LIST changes: -GENT0.1C2 FLUSH; -KPP250 PEG; -LEVE250T PEG; -LIFI5DRO; -LORA-741 PO; -MELA1TAB5 PO
[2016-12-20 19:20] VITALS: BP 164/73; PULSE 64; TEMP 36.4; O2SAT 97; BMI 30.6
[2016-12-20] MEDS ORDERED: LORA-741 PO (19:45)
[2016-12-20] MEDS ORDERED: LAMO200T38 PEG (19:45)
[2016-12-20] MEDS ORDERED: LIFI5DRO (19:45)
[2016-12-20] MEDS ORDERED: LEVE250T PEG (19:45)
[2016-12-20] MEDS ORDERED: KPP250 PEG (19:45)
[2016-12-20] MEDS ORDERED: INSDGI SC (19:45)
[2016-12-20] MEDS ORDERED: GENT0.1C2 FLUSH (19:45)
[2016-12-20] MEDS ORDERED: MELA1TAB5 PO (19:45)
[2016-12-20] MEDS ORDERED: LIDODERM (LIDOCAINE) PATCH 5% TD PRN (20:30)
[2016-12-20] MEDS ORDERED: PHENAZOPYRIDINE HCL 200 MG TAB PO PRN (20:30)
[2016-12-20] MEDS ORDERED: MELATONIN 1 MG PO PRN (20:30)
[2016-12-20] MEDS ORDERED: ACETAMINOPHEN SOLN 500 MG/15.62 ML UDP PO PRN (20:30)
[2016-12-20] MEDS ORDERED: QUETIAPINE FUMARATE 25 MG TAB PO PRN (20:30)
[2016-12-20] MEDS ORDERED: ONDANSETRON 4 MG TAB PO PRN (20:30)
[2016-12-20] MEDS ORDERED: ARTIFICIAL TEARS OP SOLN OP PRN ×2 (20:30)
[2016-12-20] MEDS ORDERED: LORAZEPAM 0.5 MG TAB PO PRN (20:30)
[2016-12-20] MEDS ORDERED: POLYETHYLENE (MIRALAX) 17 GM PACK PEG PRN (20:30)
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
[2016-12-20 20:57] VITALS: BP 164/73; PULSE 64; TEMP 36.4; O2SAT 97
[2016-12-20] MEDS: INSULIN GLARGINE SOLOSTAR 100 UNITS/ML 3 ML PEN SC SCH (21:00)
[2016-12-20 22:15] LABS: CALCIUM 9.5 mg/dl (8.5-10.1); POTASSIUM 4.7 mmol/L (3.5-5.1)
[2016-12-20 22:18] LABS: ALB/GLOB RATIO 0.4 (0.9-2)
[2016-12-20] MEDS ORDERED: METHYLNALTREXONE BROMIDE INJ 12 MG/0.6 ML SYR SQ PRN (22:30)
[2016-12-20] MEDS ORDERED: GLUCAGON FOR INJ 1 MG VIAL SQ PRN (22:30)
[2016-12-20] MEDS ORDERED: GLUCOSE 40% GEL 15 GM TUBE PO PRN (22:30)
[2016-12-20] MEDS ORDERED: GLUCOSE 10 TABS/TUBE PO PRN (22:30)
[2016-12-20 23:25] LABS: BASO % 0.5 %; BASO ABS # 0.03 K/uL (0-0.2); COMPLETE YES; EOS % 2.4 %; HEMATOCRIT 26.6 % (37-47); IG% 0.8 %; LYMPH % 32.7 %; LYMPH ABS # 2.17 K/uL (1.2-3.4); MEAN CELL VOLUME 87.2 fL (80-100); MEAN CORPUSCULAR HEMOGLOBIN 29.8 pg (25-34); MEAN CORPUSCULAR HGB CONC 34.2 g/dl (32-36); MEAN PLATELET VOLUME 9.3 fL (7.4-10.4); MONO % 6.6 %; PLATELET COUNT 228 K/uL (130-400); RED BLOOD COUNT 3.05 M/uL (4.2-5.4); WHITE BLOOD COUNT 6.63 K/uL (4.8-10.8)
[2016-12-20 23:43] LABS: COMPLETE YES
[2016-12-21] VITALS (7 sets, daily range): BP systolic 107–148; BP diastolic 45–78; PULSE 59–65; TEMP 36.4–36.7; O2SAT 93–99; BMI 31.0
[2016-12-21] MEDS: ALBUTEROL HFA 8 GM INHALER INH SCH ×3 (00:12→20:07)
[2016-12-21] MEDS: INSULIN GLARGINE SOLOSTAR 100 UNITS/ML 3 ML PEN SC SCH (00:15)
[2016-12-21] MEDS: INSULIN ASPART 100 UNITS/ML 3 ML PEN SC SCH ×5 (00:16→20:12)
[2016-12-21] MEDS: GABAPENTIN 250 MG/5 ML 470 ML BTL PEG SCH ×3 (00:16→16:00)
[2016-12-21] MEDS: PENTOSAN POLYSULFATE SODIUM 100 MG CAP PO SCH ×3 (00:17→20:08)
[2016-12-21] MEDS: LACTOBACILLUS ACIDOPHILUS (FLORANEX) TAB PEG SCH ×4 (00:18→20:08)
[2016-12-21] MEDS: DIPYRIDAMOLE/ASPIRIN CAP PO SCH ×3 (00:19→20:08)
[2016-12-21] MEDS: AMPHOTERICIN B IR SCH ×8 (00:23→18:01)
[2016-12-21] MEDS: [UNRECOGNIZED DRUG - OTHER] IR SCH ×8 (00:23→18:01)
[2016-12-21] MEDS: LEVETIRACETAM ORAL SOLN 100MG/ML PO SCH ×3 (01:49→20:10)
[2016-12-21 05:45] LABS: BASO % 0.3 %; BASO ABS # 0.02 K/uL (0-0.2); EOS % 2.6 %; HEMATOCRIT 24.4 % (37-47); IG% 0.7 %; LYMPH % 29.2 %; LYMPH ABS # 1.78 K/uL (1.2-3.4); MEAN CELL VOLUME 87.8 fL (80-100); MEAN CORPUSCULAR HEMOGLOBIN 28.4 pg (25-34); MEAN CORPUSCULAR HGB CONC 32.4 g/dl (32-36); MONO % 10.3 %; NEUT % 56.9 %; PLATELET COUNT 225 K/uL (130-400); RED BLOOD COUNT 2.78 M/uL (4.2-5.4); WHITE BLOOD COUNT 6.09 K/uL (4.8-10.8)
[2016-12-21 05:56] LABS: ESTIMATED AVERAGE GLUCOSE 203 mg/dl; HA1C FLAG Normal (Normal)
[2016-12-21 06:20] LABS: BUN/CREATININE RATIO 47.2 (10-20); CALCIUM 8.8 mg/dl (8.5-10.1); CREATININE 0.94 mg/dl (0.60-1.20); POTASSIUM 4.3 mmol/L (3.5-5.1)
[2016-12-21 06:23] LABS: ALB/GLOB RATIO 0.4 (0.9-2)
[2016-12-21 06:25] LABS: COMPLETE YES
[2016-12-21 06:30] LABS: BETA-HYDROXYBUTYRATE 2.29 mg/dL (0.2-2.81)
[2016-12-21] MEDS: ESCITALOPRAM OXALATE 20 MG TAB PEG SCH (08:22)
[2016-12-21] MEDS: CLOPIDOGREL BISULFATE 75 MG TAB PEG SCH (08:22)
[2016-12-21] MEDS: ALLOPURINOL 100 MG TAB PEG SCH (08:22)
[2016-12-21] MEDS: FLUCONAZOLE SUSP 40 MG/ML 35 ML PEG SCH (08:23)
[2016-12-21] MEDS: CHOLECALCIFEROL 1000 INTER.UNIT TAB PEG SCH (08:24)
[2016-12-21] MEDS: AMLODIPINE BESYLATE 5 MG TAB PEG SCH (08:24)
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
[2016-12-21] MEDS ORDERED: GABAPENTIN 250 MG/5 ML 470 ML BTL PEG SCH ×3 (09:00→16:00)
--- NOTE | 2016-12-21 10:46 | Progress Note ---
Progress Note Date of Service Dec 21, 2016. Progress Note ID Consult Dictated #[id number] A/P: 1. Fungal uti -Contine ampho bladder irrigation x 7 days, tolerating well -thank you
--- NOTE | 2016-12-21 11:16 | INFECT. DISEASE CONSULTATION ---
DATE OF CONSULTATION: 12/21/2016 DATE OF CONSULTATION: 12/21/2016 REQUESTING PHYSICIAN: Dr. Polanco. HISTORY OF PRESENT ILLNESS: This is a 71-year-old female who was admitted after she had a urine culture positive for non-albicans yeast. This is dated 12/18/2016. This culture was done as an outpatient. She was instructed by the ID office to be admitted for amphotericin bladder irrigation. She is undergoing this currently and has not had any issues. She has been afebrile since admission. Her white count is normal. Her creatinine is normal. She does not have any reported fevers or chills since admission or at home. She denies any chest pain or shortness of breath. Her remaining review of systems are negative. PAST MEDICAL HISTORY: Significant for COPD, respiratory failure, recurrent urinary tract infections, continuous ventilation, quadriplegia. She does have trach and peg. FAMILY HISTORY: Noncontributory. SOCIAL HISTORY: Negative for tobacco use, alcohol use or drug use. ALLERGIES: SHE HAS ALLERGIES TO PENICILLIN AND CEPHALOSPORINS, ERYTHROMYCIN, NITROFURANTOIN, LINEZOLID AND SULFA ANTIBIOTICS. CURRENT MEDICATIONS: Include allopurinol, Norvasc, Plavix, Lexapro, fluconazole, vitamin D, gabapentin, Tylenol, Lamictal, Keppra, amphotericin bladder irrigation, Relistor, albuterol, Aggrenox, Lamictal, BuSpar, Elmiron, Floranex, insulin, Lidoderm patch, Ativan, Zofran, Pyridium, Seroquel, MiraLax and Lantus. PHYSICAL EXAMINATION: VITAL SIGNS: She is afebrile, pulse 61, respiratory rate is 22, blood pressure 143/68, oxygen saturation is 99% on trach collar. GENERAL: She is awake on the ventilator. Trach site is clean, dry and intact. HEAD, EYES, EARS, NOSE, AND THROAT: Mucous membranes are moist. HEART: Regular. I do not auscultate a murmur. LUNGS: Clear anteriorly. ABDOMEN: Distended but nontender. Bladder irrigation is ongoing. EXTREMITIES: There is no lower extremity edema. SKIN: Without rash. LABORATORY STUDIES: CBC reveals a white blood cell count of 6.0, hemoglobin 7.9, platelets are 225. Chemistry panel: Sodium 129, potassium 4.3, chloride 95, bicarb 28, BUN 44, creatinine 0.4, glucose is 311. LFTs are within normal limits. There is no micro to review. A C. diff is pending. Again her 12/18/2016 urine culture done as an outpatient is growing albicans yeast. There is no imaging to review. ASSESSMENT AND PLAN: Fungal UTI on bladder irrigation. She will require 7 days of therapy. She is afebrile and otherwise hemodynamically stable. I would withhold additional antibiotics. Thank you for this consultation.
[2016-12-21] MEDS ORDERED: INSULIN GLARGINE SOLOSTAR 100 UNITS/ML 3 ML PEN SC SCH (21:00)
[2016-12-21] MEDS: NOVASOURCE RENAL 1000ML BAG PEG PRN (21:25)
[2016-12-22] MEDS: AMPHOTERICIN B IR SCH ×10 (00:04→23:43)
[2016-12-22] MEDS: [UNRECOGNIZED DRUG - OTHER] IR SCH ×10 (00:04→23:43)
[2016-12-22] MEDS: GABAPENTIN 250 MG/5 ML 470 ML BTL PEG SCH ×4 (00:04→23:44)
[2016-12-22 00:24] VITALS: BP 151/63; PULSE 70; TEMP 36.7; O2SAT 100
[2016-12-22] MEDS ORDERED: PHARMACY GLYCEMIC MGMT CONSULT PRN (02:30)
[2016-12-22] MEDS ORDERED: INSULIN REGULAR 10 UNITS in SYRINGE 9.9 ML IV SCH (02:30)
[2016-12-22] MEDS ORDERED: INSULIN ASPART 100 UNITS/ML 3 ML PEN SC STA (02:36)
[2016-12-22 03:14] VITALS: BP 146/69; PULSE 70; TEMP 36.7; O2SAT 96
[2016-12-22] MEDS ORDERED: INSULIN ASPART 100 UNITS/ML 3 ML PEN SC SCH ×2 (04:00→07:00)
[2016-12-22 07:18] VITALS: BP 125/44; PULSE 67; TEMP 36.6; O2SAT 100
[2016-12-22] MEDS: CLOPIDOGREL BISULFATE 75 MG TAB PEG SCH (10:07)
[2016-12-22] MEDS: ALLOPURINOL 100 MG TAB PEG SCH (10:07)
[2016-12-22] MEDS: AMLODIPINE BESYLATE 5 MG TAB PEG SCH (10:07)
[2016-12-22] MEDS: DIPYRIDAMOLE/ASPIRIN CAP PO SCH ×2 (10:07→20:03)
[2016-12-22] MEDS: CHOLECALCIFEROL 1000 INTER.UNIT TAB PEG SCH (10:07)
[2016-12-22] MEDS: PENTOSAN POLYSULFATE SODIUM 100 MG CAP PO SCH ×2 (10:07→20:01)
[2016-12-22] MEDS: LEVETIRACETAM ORAL SOLN 100MG/ML PO SCH ×2 (10:08→20:02)
[2016-12-22] MEDS: ALBUTEROL HFA 8 GM INHALER INH SCH ×2 (10:08→21:06)
[2016-12-22] MEDS: LACTOBACILLUS ACIDOPHILUS (FLORANEX) TAB PEG SCH ×3 (10:08→20:03)
[2016-12-22] MEDS: FLUCONAZOLE SUSP 40 MG/ML 35 ML PEG SCH (10:08)
[2016-12-22] MEDS: ESCITALOPRAM OXALATE 20 MG TAB PEG SCH (10:08)
[2016-12-22 10:49] LABS: HEMATOCRIT 24.3 % (37-47); MEAN CORPUSCULAR HEMOGLOBIN 28.9 pg (25-34); MEAN CORPUSCULAR HGB CONC 32.5 g/dl (32-36); MEAN PLATELET VOLUME 9.5 fL (7.4-10.4); PLATELET COUNT 254 K/uL (130-400); RED BLOOD COUNT 2.73 M/uL (4.2-5.4)
[2016-12-22] MEDS: NOVASOURCE RENAL 1000ML BAG PEG PRN (10:59)
[2016-12-22] MEDS: INSULIN ASPART 100 UNITS/ML 3 ML PEN SC SCH ×2 (11:08→12:19)
[2016-12-22 11:29] LABS: BUN/CREATININE RATIO 50.5 (10-20); CALCIUM 9.5 mg/dl (8.5-10.1); CREATININE 0.84 mg/dl (0.60-1.20); POTASSIUM 4.6 mmol/L (3.5-5.1)
[2016-12-22 11:35] VITALS: BP 138/66; PULSE 61; TEMP 36.7; O2SAT 97
[2016-12-22] MEDS ORDERED: ACETAMINOPHEN SOLN 325 MG/10.15 ML UDC ONE (12:57)
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
--- NOTE | 2016-12-22 14:43 | Pharmacy Progress Note ---
Glycemic Control Intl Consult Date of Service Dec 22, 2016. Scope Glycemic Pharmacist consulted by Dr Mai on 12/22/16 for glycemic control and to write orders per [facility] inpatient glycemic control protocol Objective Weight (Kilograms): 76.300 Accuchecks BSG (last 24hrs): Test 12/21/16 16:13 12/21/16 20:02 12/21/16 20:05 12/22/16 02:09 Bedside Glucose 331 mg/dl (70-90) 402 mg/dl (70-90) 392 mg/dl (70-90) 307 mg/dl (70-90) Test 12/22/16 04:02 12/22/16 06:32 12/22/16 09:55 12/22/16 11:34 Bedside Glucose 165 mg/dl (70-90) 202 mg/dl (70-90) 227 mg/dl (70-90) Random Glucose 200 mg/dl (70-99) Laboratory Data (last 24hrs) Test 12/22/16 09:55 Anion Gap 8.0 mmol/L BUN/Creatinine Ratio 50.5 Blood Urea Nitrogen 42 mg/dl Creatinine 0.84 mg/dl Potassium Level 4.6 mmol/L Sodium Level 137 mmol/L White Blood Count 7.10 K/uL HbA1c Test 12/21/16 05:19 Hemoglobin A1c 8.7 % (4.5-5.6) H Recent Pertinent Medications Outpatient Anti-diabetic Regimen: * Lantus 13 units qHS -> reportedly increased to 40 units per patient (noted in H&P) The patient is currently receiving: * Basal insulin: Lantus 20 units every 24 hours * Correctional Insulin: Novolog Correction per scale ACHS Goal Range: Low 140 mg/dL - High 180 mg/dL Correction Factor: 20 mg/dL/unit * Prandial insulin: Per carb ratio of 1 unit per 10 grams CHO consumed Risk Factors for Insulin Resistance: * Diet: Novosource Renal 250 mL (~46 gm CHO) per PEG TID Assessment & Plan ASSESSMENT: * 71 y/o female well known to the pharmacy glycemic service, admitted with UTI. She is ventilator dependent with a trach and receives bolus tube feeds per PEG as an outpatient. * She received 58 units of insulin yesterday with BSGs ranging from 202-392 mg/ dL in the past 24 hours * The biggest cause of her elevated BSGs is bolus feedings TID which have not been covered * Will plan to adjust regimen to a similar regimen from last admission and follow up. This will include a higher dose of basal and switching the Novolog to longer duration Regular to cover the bolus tube feeds. PLAN FOR INPATIENT GLYCEMIC CONTROL: * Increase Lantus to 30 units qHS * Change Novolog to Regular insulin 8 units TID with bolus tube feeds + CF 20 mg /dL/unit * Please note that the plan above was derived based on current level of insulin resistance and hospital stress. These recommendations are appropriate for inpatient admission only. Plan of care upon discharge will need to be reassessed to avoid potential outpatient hypo/hyperglycemia. Thank you.
[2016-12-22 15:09] VITALS: BP 127/51; PULSE 63; TEMP 36.7; O2SAT 97
[2016-12-22] MEDS: INSULIN HUMAN REGULAR SC SCH ×4 (15:53→21:46)
[2016-12-22] MEDS: NOVASOURCE RENAL 1000ML BAG PEG SCH ×2 (15:57→21:06)
[2016-12-22 18:56] VITALS: BP 133/60; PULSE 63; TEMP 36.8; O2SAT 100
[2016-12-22] MEDS ORDERED: INSULIN GLARGINE SOLOSTAR 100 UNITS/ML 3 ML PEN SC SCH (21:00)
[2016-12-23] VITALS (7 sets, daily range): BP systolic 117–169; BP diastolic 63–88; PULSE 61–86; TEMP 36.4–36.9; O2SAT 94–100
[2016-12-23 05:03] LABS: HEMATOCRIT 25.9 % (37-47); MEAN CELL VOLUME 89.3 fL (80-100); MEAN CORPUSCULAR HEMOGLOBIN 28.3 pg (25-34); MEAN CORPUSCULAR HGB CONC 31.7 g/dl (32-36); PLATELET COUNT 259 K/uL (130-400)
[2016-12-23 05:25] LABS: BUN/CREATININE RATIO 50.1 (10-20); CALCIUM 9.5 mg/dl (8.5-10.1); CREATININE 0.83 mg/dl (0.60-1.20)
[2016-12-23] MEDS: [UNRECOGNIZED DRUG - OTHER] IR SCH ×6 (05:29→17:28)
[2016-12-23] MEDS: AMPHOTERICIN B IR SCH ×6 (05:29→17:28)
[2016-12-23] MEDS: ALLOPURINOL 100 MG TAB PEG SCH (08:34)
[2016-12-23] MEDS: AMLODIPINE BESYLATE 5 MG TAB PEG SCH (08:34)
[2016-12-23] MEDS: LACTOBACILLUS ACIDOPHILUS (FLORANEX) TAB PEG SCH ×3 (08:34→20:18)
[2016-12-23] MEDS: ESCITALOPRAM OXALATE 20 MG TAB PEG SCH (08:34)
[2016-12-23] MEDS: GABAPENTIN 250 MG/5 ML 470 ML BTL PEG SCH ×2 (08:34→15:43)
[2016-12-23] MEDS: PENTOSAN POLYSULFATE SODIUM 100 MG CAP PO SCH ×2 (08:34→20:18)
[2016-12-23] MEDS: DIPYRIDAMOLE/ASPIRIN CAP PO SCH ×2 (08:34→20:17)
[2016-12-23] MEDS: CLOPIDOGREL BISULFATE 75 MG TAB PEG SCH (08:34)
[2016-12-23] MEDS: CHOLECALCIFEROL 1000 INTER.UNIT TAB PEG SCH (08:34)
[2016-12-23] MEDS: ALBUTEROL HFA 8 GM INHALER INH SCH ×2 (08:35→20:17)
[2016-12-23] MEDS: FLUCONAZOLE SUSP 40 MG/ML 35 ML PEG SCH (08:36)
[2016-12-23] MEDS: LEVETIRACETAM ORAL SOLN 100MG/ML PO SCH ×2 (08:36→20:18)
[2016-12-23] MEDS: INSULIN HUMAN REGULAR SC SCH ×6 (09:36→20:16)
[2016-12-23] MEDS: NOVASOURCE RENAL 1000ML BAG PEG SCH ×2 (09:39→15:44)
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
[2016-12-23] MEDS: DORNASE ALFA (2500U) 2.5MG/2.5ML INH SCH ×2 (13:45→19:26)
--- NOTE | 2016-12-23 13:49 | Pharmacy Progress Note ---
Glycemic: Assessment & Plan Date of Service Dec 23, 2016. Assessment & Plan The patient is currently receiving 66 units of insulin per day. BSGs ranging 177 - 254 mg/dl over the past 24hrs. * Basal insulin: Lantus 30 units every 24 hours * Correctional Insulin: Regular Correction per scale TID Goal Range: Low 110 mg/dL - High 140 mg/dL Correction Factor: 20 mg/dL/unit * Prandial insulin: 8 units TID with bolus tube feeds * Risk factors for insulin resistance are constant over the past 24hrs * Anticipating insulin regimen will need increased for the next 24hrs d/t : * AM Fasting BSG = 188 therefore Basal insulin needs increased * Post-prandial BSGs are elevated/BSGs rise throughout the day therefore Tighten prandial coverage PLAN FOR INPATIENT GLYCEMIC CONTROL: * Increase Lantus to 35 units qHS * Increase Regular to 9 units with each bolus feeding Pharmacy will continue to monitor patient daily and write orders per [facility] inpatient glycemic control protocol. Thanks. * Please note that the plan above was derived based on current level of insulin resistance and hospital stress. These recommendations are appropriate for inpatient admission only. Plan of care upon discharge will need to be reassessed to avoid potential outpatient hypo/hyperglycemia.
[2016-12-23] MEDS ORDERED: HOME MED ADMINISTRATION ONE (17:15)
[2016-12-23] MEDS: INSULIN GLARGINE SOLOSTAR 100 UNITS/ML 3 ML PEN SC SCH (20:24)
[2016-12-24] VITALS (9 sets, daily range): BP systolic 119–190; BP diastolic 48–110; PULSE 61–101; TEMP 36.1–37; O2SAT 95–100
[2016-12-24] MEDS: [UNRECOGNIZED DRUG - OTHER] IR SCH ×10 (00:39→23:53)
[2016-12-24] MEDS: GABAPENTIN 250 MG/5 ML 470 ML BTL PEG SCH ×4 (00:39→23:52)
[2016-12-24] MEDS: AMPHOTERICIN B IR SCH ×10 (00:39→23:53)
[2016-12-24] MEDS: DORNASE ALFA (2500U) 2.5MG/2.5ML INH SCH ×2 (07:12→19:30)
[2016-12-24] MEDS: INSULIN HUMAN REGULAR SC SCH ×6 (09:37→21:05)
[2016-12-24] MEDS: CHOLECALCIFEROL 1000 INTER.UNIT TAB PEG SCH (09:41)
[2016-12-24] MEDS: ALBUTEROL HFA 8 GM INHALER INH SCH ×2 (09:41→20:41)
[2016-12-24] MEDS: LACTOBACILLUS ACIDOPHILUS (FLORANEX) TAB PEG SCH ×3 (09:42→20:40)
[2016-12-24] MEDS: ESCITALOPRAM OXALATE 20 MG TAB PEG SCH (09:42)
[2016-12-24] MEDS: DIPYRIDAMOLE/ASPIRIN CAP PO SCH ×2 (09:42→20:40)
[2016-12-24] MEDS: PENTOSAN POLYSULFATE SODIUM 100 MG CAP PO SCH ×2 (09:42→20:40)
[2016-12-24] MEDS: ALLOPURINOL 100 MG TAB PEG SCH (09:42)
[2016-12-24] MEDS: CLOPIDOGREL BISULFATE 75 MG TAB PEG SCH (09:42)
[2016-12-24] MEDS: FLUCONAZOLE SUSP 40 MG/ML 35 ML PEG SCH (09:43)
[2016-12-24] MEDS: AMLODIPINE BESYLATE 5 MG TAB PEG SCH (09:44)
[2016-12-24] MEDS: LEVETIRACETAM ORAL SOLN 100MG/ML PO SCH ×2 (09:45→20:39)
[2016-12-24] MEDS: NUTREN PEG SCH ×3 (10:18→20:41)
[2016-12-24] MEDS: LIFITEGRAST OP SCH ×2 (11:20→23:52)
[2016-12-24] MEDS: ACETAMINOPHEN SOLN 160 MG/5 ML BTL PO PRN (16:05)
[2016-12-24] MEDS ORDERED: NURSING VERBAL MED ORDER ONE ×2 (16:30→17:15)
[2016-12-24] MEDS ORDERED: FAMOTIDINE IV SCH (16:45)
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
[2016-12-24] MEDS: INSULIN GLARGINE SOLOSTAR 100 UNITS/ML 3 ML PEN SC SCH (21:05)
[2016-12-24] MEDS: IBUPROFEN 200 MG/10 ML UDC GT PRN (23:53)
[2016-12-25] VITALS (20 sets, daily range): BP systolic 103–157; BP diastolic 47–73; PULSE 54–71; TEMP 33.9–37.1; O2SAT 91–100
[2016-12-25] MEDS: ACETAMINOPHEN SOLN 160 MG/5 ML BTL PO PRN (03:28)
[2016-12-25 04:14] LABS: HEMATOCRIT 25.2 % (37-47); MEAN CORPUSCULAR HEMOGLOBIN 29.6 pg (25-34); MEAN CORPUSCULAR HGB CONC 32.9 g/dl (32-36); MEAN PLATELET VOLUME 8.7 fL (7.4-10.4); PLATELET COUNT 240 K/uL (130-400); WHITE BLOOD COUNT 8.49 K/uL (4.8-10.8)
[2016-12-25 04:39] LABS: BUN/CREATININE RATIO 51.1 (10-20); CREATININE 0.72 mg/dl (0.60-1.20); POTASSIUM 3.1 mmol/L (3.5-5.1)
[2016-12-25] MEDS: [UNRECOGNIZED DRUG - OTHER] IR SCH ×6 (05:45→18:31)
[2016-12-25] MEDS: AMPHOTERICIN B IR SCH ×6 (05:45→18:31)
[2016-12-25] MEDS: DORNASE ALFA (2500U) 2.5MG/2.5ML INH SCH ×2 (07:27→19:16)
[2016-12-25] MEDS: LEVETIRACETAM ORAL SOLN 100MG/ML PO SCH ×2 (08:50→20:52)
[2016-12-25] MEDS: PENTOSAN POLYSULFATE SODIUM 100 MG CAP PO SCH ×2 (08:57→20:52)
[2016-12-25] MEDS: ESCITALOPRAM OXALATE 20 MG TAB PEG SCH (08:58)
[2016-12-25] MEDS: DIPYRIDAMOLE/ASPIRIN CAP PO SCH ×2 (08:58→20:51)
[2016-12-25] MEDS: CLOPIDOGREL BISULFATE 75 MG TAB PEG SCH (08:58)
[2016-12-25] MEDS: ALLOPURINOL 100 MG TAB PEG SCH (08:58)
[2016-12-25] MEDS: LACTOBACILLUS ACIDOPHILUS (FLORANEX) TAB PEG SCH ×3 (08:58→20:51)
[2016-12-25] MEDS: AMLODIPINE BESYLATE 5 MG TAB PEG SCH (08:58)
[2016-12-25] MEDS: FLUCONAZOLE SUSP 40 MG/ML 35 ML PEG SCH (08:59)
[2016-12-25] MEDS: ALBUTEROL HFA 8 GM INHALER INH SCH ×2 (09:00→21:00)
[2016-12-25] MEDS: CHOLECALCIFEROL 1000 INTER.UNIT TAB PEG SCH (09:00)
[2016-12-25] MEDS: INSULIN HUMAN REGULAR SC SCH ×6 (09:20→20:56)
[2016-12-25] MEDS: GABAPENTIN 250 MG/5 ML 470 ML BTL PEG SCH ×2 (09:30→16:50)
[2016-12-25] MEDS: NUTREN PEG SCH ×3 (10:00→20:50)
--- NOTE | 2016-12-25 10:46 | Pharmacy Progress Note ---
Glycemic Control Progress Note Date of Service Dec 25, 2016. Scope Glycemic Pharmacist consulted for glycemic control to write orders per [facility] inpatient glycemic control protocol. Objective Accuchecks BSG (last 24hrs): Test 12/24/16 15:11 12/24/16 20:43 12/25/16 03:58 12/25/16 07:05 Bedside Glucose 234 mg/dl (70-90) 307 mg/dl (70-90) 191 mg/dl (70-90) Random Glucose 246 mg/dl (70-99) HbA1c: Test 12/21/16 05:19 Hemoglobin A1c 8.7 % (4.5-5.6) H Recent Pertinent Medications The patient is currently receiving: * Basal insulin: Lantus 35 units every 24 hours in the evenings * Correctional Insulin: Novolog Correction per scale ACHS Goal Range: Low 110 mg/dL - High 140 mg/dL Correction Factor: 15 mg/dL/unit * Prandial insulin: Per carb ratio of 1 unit per -- grams CHO consumed * Oral Agents: scheduled regular insulin 9 units three times daily before Nutrin feeds. Outpatient Anti-Diabetic Meds Latus 40 units qHS Assessment & Plan ASSESSMENT: * See progress note from for more background info, in short: * Pt receiving SQ basal bolus insulin regimen for hyperglycemia secondary to baseline DM (outpatient regimen on hold), UTI currently on amphotericin irrigation, and chronically has tracheostomy. * Patient is currently receiving an average of 75 units of insulin per day * 35 units of basal insulin * 42 units of prandial/correctional insulin * BSGs ranging 151 - 307 mg/dl over the past 24hrs * Changes needed to insulin regimen: * AM Fasting BSG = 191 mg/dl. This is in slightly above goal range for patient based on inpatient targets and co-morbidities. Therefore Basal insulin will be increased to home dose of Lantus 40 units * Post-prandial BSGs rise throughout the day therefore need to tighten CF from 20 to 15 mg/dL/unit. Will increase regular insulin with Nutrens feeding from 9 to 11 units. * Total daily dose = ~70 units. Expect true TDD to be around 80-90 units/day. Insulin adjusted accordingly. PLAN FOR INPATIENT GLYCEMIC CONTROL: * INCREASING Lantus to 40 units SQ qHS * TIGHTENING correction factor to 15 mg/dl/unit * TIGHTENING regular insulin with bolus feeds to 11 units with feeds * Continuing goal range to Low 110 mg/dL - High 140 mg/dL RECOMMENDATIONS FOR DISCHARGE: * It appears that patient's insulin was just increased as an outpatient. HbA1C is slightly elevated at 8.7%. Recommend to re-evaluate after several weeks via blood glucose logs to determine the effects of the basal increase. May require insulin with bolus tube feeds. Thank you.
[2016-12-25] MEDS: LIFITEGRAST OP SCH ×2 (11:02→23:58)
[2016-12-25] MEDS: POTASSIUM CHLR 20 MEQ / WTR 20 MEQ in PREMIXED WATER 100 ML IV SCH ×2 (12:52→15:39)
[2016-12-25] MEDS: IBUPROFEN 200 MG/10 ML UDC GT PRN (13:05)
[2016-12-25] MEDS ORDERED: INSULIN GLARGINE SOLOSTAR 100 UNITS/ML 3 ML PEN SC SCH (21:00)
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
[2016-12-26] MEDS: [UNRECOGNIZED DRUG - OTHER] IR SCH ×10 (00:07→23:49)
[2016-12-26] MEDS: GABAPENTIN 250 MG/5 ML 470 ML BTL PEG SCH ×4 (00:07→20:31)
[2016-12-26] MEDS: AMPHOTERICIN B IR SCH ×10 (00:07→23:49)
[2016-12-26 02:55] VITALS: BP 120/51; PULSE 69; TEMP 37.4; O2SAT 99
[2016-12-26 04:26] LABS: BASO % 0.2 %; BASO ABS # 0.02 K/uL (0-0.2); EOS % 2.3 %; HEMATOCRIT 23.7 % (37-47); IG% 1.9 %; LYMPH % 19.2 %; LYMPH ABS # 2.12 K/uL (1.2-3.4); MEAN CELL VOLUME 91.9 fL (80-100); MEAN CORPUSCULAR HEMOGLOBIN 29.5 pg (25-34); MEAN CORPUSCULAR HGB CONC 32.1 g/dl (32-36); MEAN PLATELET VOLUME 8.9 fL (7.4-10.4); MONO % 8.5 %; NEUT % 67.9 %; PLATELET COUNT 245 K/uL (130-400); RED BLOOD COUNT 2.58 M/uL (4.2-5.4); WHITE BLOOD COUNT 11.05 K/uL (4.8-10.8)
[2016-12-26 04:49] LABS: BUN/CREATININE RATIO 47.1 (10-20); CALCIUM 8.7 mg/dl (8.5-10.1); CREATININE 0.92 mg/dl (0.60-1.20); MAGNESIUM 2.7 mg/dl (1.8-2.4); POTASSIUM 4.9 mmol/L (3.5-5.1)
[2016-12-26 05:16] LABS: ANISOCYTOSIS PRESENT; COMPLETE YES
[2016-12-26 07:50] VITALS: BP 120/51; PULSE 71; O2SAT 95
[2016-12-26] MEDS ORDERED: INSULIN HUMAN REGULAR SC SCH (09:30)
[2016-12-26] MEDS: INSULIN HUMAN REGULAR SC SCH (09:39)
--- NOTE | 2016-12-26 09:52 | Pharmacy Progress Note ---
Glycemic Control Progress Note Date of Service Dec 26, 2016. Scope Glycemic Pharmacist consulted for glycemic control to write orders per [facility] inpatient glycemic control protocol. Objective Accuchecks BSG (last 24hrs): Test 12/25/16 10:51 12/25/16 15:25 12/25/16 16:01 12/25/16 20:29 Bedside Glucose 225 mg/dl (70-90) 273 mg/dl (70-90) 276 mg/dl (70-90) 297 mg/dl (70-90) Test 12/26/16 04:12 12/26/16 06:48 Random Glucose 221 mg/dl (70-99) Bedside Glucose 202 mg/dl (70-90) HbA1c: Test 12/21/16 05:19 Hemoglobin A1c 8.7 % (4.5-5.6) H Recent Pertinent Medications The patient is currently receiving: * Basal insulin: Lantus 40 units every 24 hours in the evenings * Correctional Insulin: Novolog Correction per scale ACHS Goal Range: Low 110 mg/dL - High 140 mg/dL Correction Factor: 15 mg/dL/unit * Prandial insulin: Per carb ratio of 1 unit per -- grams CHO consumed * Oral Agents: scheduled regular insulin 11 units three times daily before Nutrin feeds. Outpatient Anti-Diabetic Meds Lantus 40 units SQ HS Assessment & Plan ASSESSMENT: * See progress note from for more background info, in short: * Pt receiving SQ basal bolus insulin regimen for hyperglycemia secondary to baseline DM (outpatient regimen on hold), UTI currently on amphotericin irrigation, and chronically has tracheostomy. * Patient is currently receiving an average of 97 units of insulin per day * 40 units of basal insulin * 57 units of prandial/correctional insulin * BSGs ranging 191 - 397 mg/dl over the past 24hrs * Changes needed to insulin regimen: * AM Fasting BSG = 202 mg/dl. This is in slightly above goal range for patient based on inpatient targets and co-morbidities. Fasting has been elevated for several days- increase Lantus to 45 units (~10% increase) * Post-prandial BSGs rise throughout the day. Will increase regular insulin with Nutrens feeding from 11 to 15 units - produces a carbohydrate ratio of 1: 3.6. (Receives at least 4 units of correction with each feed). Tighten correction factor to 10. Blood sugars at 12 pm were elevated at 380 mg/ dL....this was at least two hours after bolus feeds. Will switch to Novolog as there is a concern that the Regular insulin peak does not mimic a bolus feed. Gave insulin IV bolus. * Total daily dose = ~90 units. PLAN FOR INPATIENT GLYCEMIC CONTROL: * INCREASE Lantus to 45 units SQ qHS * TIGHTEN correction factor of 15 mg/dl/unit * TIGHTENING regular insulin with bolus feeds to 15 units with feeds --> change to Novolog due to different peaking * Continuing goal range to Low 110 mg/dL - High 140 mg/dL RECOMMENDATIONS FOR DISCHARGE: * It appears that patient's insulin was just increased as an outpatient. HbA1C is slightly elevated at 8.7%. Recommend to re-evaluate after several weeks via blood glucose logs to determine the effects of the basal increase. May require insulin with bolus tube feeds. Thank you.
[2016-12-26] MEDS ORDERED: ACETAMINOPHEN SOLN 325 MG/10.15 ML UDC ONE (09:57)
[2016-12-26] MEDS: DIPYRIDAMOLE/ASPIRIN CAP PO SCH ×2 (10:05→20:33)
[2016-12-26] MEDS: CHOLECALCIFEROL 1000 INTER.UNIT TAB PEG SCH (10:05)
[2016-12-26] MEDS: CLOPIDOGREL BISULFATE 75 MG TAB PEG SCH (10:05)
[2016-12-26] MEDS: ALLOPURINOL 100 MG TAB PEG SCH (10:05)
[2016-12-26] MEDS: PENTOSAN POLYSULFATE SODIUM 100 MG CAP PO SCH ×2 (10:05→20:33)
[2016-12-26] MEDS: AMLODIPINE BESYLATE 5 MG TAB PEG SCH (10:06)
[2016-12-26] MEDS: ESCITALOPRAM OXALATE 20 MG TAB PEG SCH (10:06)
[2016-12-26] MEDS: LACTOBACILLUS ACIDOPHILUS (FLORANEX) TAB PEG SCH ×3 (10:06→20:32)
[2016-12-26] MEDS: FLUCONAZOLE SUSP 40 MG/ML 35 ML PEG SCH (10:07)
[2016-12-26] MEDS: NUTREN PEG SCH ×3 (10:10→20:47)
[2016-12-26] MEDS: ALBUTEROL HFA 8 GM INHALER INH SCH ×2 (10:10→20:48)
[2016-12-26] MEDS: LEVETIRACETAM ORAL SOLN 100MG/ML PO SCH ×2 (10:10→20:31)
[2016-12-26] MEDS ORDERED: NURSING VERBAL MED ORDER ONE (11:00)
[2016-12-26 11:12] VITALS: BP 131/54; PULSE 78; TEMP 36.9; O2SAT 94
--- NOTE | 2016-12-26 11:21 | Progress Note ---
Subjective Date of Service: Dec 26, 2016. Subjective Pt evaluation today including: conversation w/ patient, conversation w/ family , physical exam, chart review, lab review asked to eval pt by primary for increased trach secretions last pm. described as white, non bloody. pt with temp 99 today, tmax. has previously been afebtrile. on day 10/19 ampho bladder irrigation. keppra stopped yesterday, per caregiver more agitated yesterday, but resting comfortably on my exam. opens eyes to name, verbalizes no complaints. now off of vent, O2 sat 95-99% on high flow. no increased secretions or suctioning today. no chest imaging this admission. some diarrhea, c diff negative. all remaining ros negative. Problem List Medical Problems: (1) Acute renal failure Status: Acute (2) Altered mental status Status: Acute (3) Dehydration Status: Acute (4) Elevated troponin Status: Acute (5) Feeding tube dysfunction Status: Acute (6) Hypotension Status: Acute (7) Seizure Status: Acute (8) Sepsis Status: Acute (9) Urinary tract infection Status: Acute (10) UTI (urinary tract infection) Status: Acute Objective Vital Signs Date Time Temp Pulse Resp B/P (MAP) Pulse Ox O2 Delivery O2 Flow Rate FiO2 12/26/16 08:00 Trach Collar 12/26/16 07:50 71 16 120/51 (74) 95 12/26/16 04:00 High Flow Oxygen 12/26/16 02:55 37.4 69 16 120/51 (74) 99 High Flow Oxygen 12/25/16 23:59 High Flow Oxygen 12/25/16 23:15 37.1 68 18 128/49 (75) 98 High Flow Oxygen 12/25/16 20:00 Mechanical Ventilator 12/25/16 19:16 67 26 100 Mechanical Ventilator 12/25/16 19:14 36.9 69 21 134/61 (85) 100 Mechanical Ventilator 12/25/16 17:15 36.0 69 15 91 12/25/16 17:00 35.9 63 21 97 12/25/16 16:33 35.0 60 20 118/47 (70) 98 Mechanical Ventilator 12/25/16 16:30 35.4 65 20 96 12/25/16 16:03 35.0 60 23 118/47 (73) 98 12/25/16 16:00 Mechanical Ventilator 12/25/16 16:00 35.0 59 21 97 12/25/16 15:30 34.6 57 19 98 12/25/16 15:00 34.1 57 18 98 12/25/16 14:30 33.9 12/25/16 13:49 34.7 12/25/16 12:00 Mechanical Ventilator 12/25/16 11:26 60 19 123/57 (79) 96 Trach Collar Physical Exam General Appearance: WD/WN, no apparent distress Eyes: normal inspection Neck: supple Respiratory/Chest: lungs clear, normal breath sounds, no respiratory distress Cardiovascular: regular rate, rhythm, no edema Abdomen: non tender, soft Extremities: non-tender, normal inspection, no pedal edema Skin: normal color, no rash Laboratory Results Last 24 Hours Test 12/25/16 15:25 12/25/16 16:01 12/25/16 20:29 12/26/16 04:12 Bedside Glucose 273 mg/dl 276 mg/dl 297 mg/dl White Blood Count 11.05 K/uL Red Blood Count 2.58 M/uL Hemoglobin 7.6 g/dL Hematocrit 23.7 % Mean Corpuscular Volume 91.9 fL Mean Corpuscular Hemoglobin 29.5 pg Mean Corpuscular Hemoglobin Concent 32.1 g/dl Platelet Count 245 K/uL Mean Platelet Volume 8.9 fL Neutrophils (%) (Auto) 67.9 % Lymphocytes (%) (Auto) 19.2 % Monocytes (%) (Auto) 8.5 % Eosinophils (%) (Auto) 2.3 % Basophils (%) (Auto) 0.2 % Neutrophils # (Auto) 7.51 K/uL Lymphocytes # (Auto) 2.12 K/uL Monocytes # (Auto) 0.94 K/uL Eosinophils # (Auto) 0.25 K/uL Basophils # (Auto) 0.02 K/uL RDW Standard Deviation 69.3 fL RDW Coefficient of Variation 20.4 % Immature Granulocyte % (Auto) 1.9 % Immature Granulocyte # (Auto) 0.21 K/uL Nucleated RBC Absolute Count (auto) 0.04 K/uL Nucleated Red Blood Cells % 0.3 % Anisocytosis PRESENT Sodium Level 136 mmol/L Potassium Level 4.9 mmol/L Chloride Level 106 mmol/L Carbon Dioxide Level 24 mmol/L Anion Gap 6.0 mmol/L Blood Urea Nitrogen 43 mg/dl Creatinine 0.92 mg/dl Est Creatinine Clear Calc Drug Dose 50.9 ml/min Estimated GFR () 73.6 Estimated GFR (Non- 63.5 BUN/Creatinine Ratio 47.1 Random Glucose 221 mg/dl Calcium Level 8.7 mg/dl Magnesium Level 2.7 mg/dl Total Bilirubin 0.2 mg/dl Direct Bilirubin 0.1 mg/dl Aspartate Amino Transf (AST/SGOT) 43 U/L Alanine Aminotransferase (ALT/SGPT) 77 U/L Alkaline Phosphatase 319 U/L Total Protein 7.9 gm/dl Albumin 2.3 gm/dl Test 12/26/16 06:48 Bedside Glucose 202 mg/dl Assessment and Plan (1) UTI (lower urinary tract infection) Assessment & Plan: finish ampho bladder irrigation after today. No clinical signs for pulm infection/tracheal infection. would monitor off of abx.
[2016-12-26] MEDS: LIFITEGRAST OP SCH ×2 (11:57→23:51)
[2016-12-26] MEDS ORDERED: INSULIN HUMAN REGULAR IV BOLUS 7 UNIT in SYRINGE 0 ML IV SCH (14:00)
--- NOTE | 2016-12-26 14:49 | DIAGNOSTIC IMAGING REPORT ---
CHEST ONE VIEW PORTABLE CLINICAL HISTORY: 71 years-old Female presenting with history of UTI, history of pulmonary opacities. TECHNIQUE: Portable upright AP view of the chest was obtained. COMPARISON: 11/22/2016. FINDINGS: Patient is FREDRICK rotated. Tracheostomy tube, right subclavian Mediport, and left subclavian central line remain in place. Atherosclerosis of the aorta. Cardiomediastinal silhouette normal in size. Interval increase in perihilar vascular indistinctness and mid and basilar lung opacities, greatest in the right lung. Trace bilateral pleural effusions may be present. No pneumothorax. Degenerative changes of the bilateral glenohumeral joints noted. Upper abdomen normal. IMPRESSION: 1. Increased bilateral mid to basilar lung opacities, which likely represent edema, aspiration, or pneumonia. Electronically signed by: Nikolay Lo M.D. 12/26/2016 2:47 PM Dictated Date/Time: 12/26/2016 2:44 PM
[2016-12-26 15:17] VITALS: BP 129/49; PULSE 63; TEMP 36.5; O2SAT 94
[2016-12-26] MEDS: INSULIN ASPART 100 UNITS/ML 3 ML PEN SC SCH ×4 (16:03→20:47)
[2016-12-26 18:50] VITALS: BP 107/53; PULSE 61; TEMP 36.4; O2SAT 100
[2016-12-26] MEDS ORDERED: VANCOMYCIN INJ 1,750 MG in SODIUM CHLORIDE 0.9% 500ML 500 ML IV ONE (19:56)
[2016-12-26] MEDS: IMIPENEM-CILASTATIN 250 MG in DEXTROSE 5% 100ML 100 ML IV SCH (20:32)
[2016-12-26] MEDS: INSULIN GLARGINE SOLOSTAR 100 UNITS/ML 3 ML PEN SC SCH (20:47)
[2016-12-26] MEDS ORDERED: VANCOMYCIN CONSULT ACTIVE PRN (21:00)
--- NOTE | 2016-12-26 21:07 | Pharmacy Progress Note ---
Pharmacy Abx Initial Consult Date of Service Dec 26, 2016. Pharmacy Dosing Scope Date of Consult: 12/26/16 Consultation requested by: Dr. Vasques Pharmacy is consulted to initiate Vancomycin IV dosing therapy, order appropriate labs and adjust drug dose/frequency. Subjective The patient is a 71 year old female admitted on Dec 20, 2016 at 18:21. Objective Height (Feet): 5 Height (Inches): 0.00 Weight (Kilograms): 70.800 Vital Signs (Past 12Hrs) Vital Signs Past 12 Hours Date Time Temp Pulse Resp B/P (MAP) Pulse Ox O2 Delivery O2 Flow Rate FiO2 12/26/16 18:50 36.4 61 14 107/53 (71) 100 Mechanical Ventilator 12/26/16 16:00 Mechanical Ventilator 12/26/16 15:17 36.5 63 19 129/49 (75) 94 Mechanical Ventilator 12/26/16 12:00 Trach Collar 12/26/16 11:12 36.9 78 20 131/54 (79) 94 Mechanical Ventilator Lab Results (24Hrs) Laboratory Tests (24 Hours) Test 12/26/16 04:12 White Blood Count 11.05 K/uL (4.8-10.8) H Red Blood Count 2.58 M/uL (4.2-5.4) L Hemoglobin 7.6 g/dL (12.0-16.0) L Hematocrit 23.7 % (37-47) L Mean Corpuscular Volume 91.9 fL (80-100) Mean Corpuscular Hemoglobin 29.5 pg (25-34) Mean Corpuscular Hemoglobin Concent 32.1 g/dl (32-36) Platelet Count 245 K/uL (130-400) Mean Platelet Volume 8.9 fL (7.4-10.4) Neutrophils (%) (Auto) 67.9 % Lymphocytes (%) (Auto) 19.2 % Monocytes (%) (Auto) 8.5 % Eosinophils (%) (Auto) 2.3 % Basophils (%) (Auto) 0.2 % Neutrophils # (Auto) 7.51 K/uL (1.4-6.5) H Lymphocytes # (Auto) 2.12 K/uL (1.2-3.4) Monocytes # (Auto) 0.94 K/uL (0.11-0.59) H Eosinophils # (Auto) 0.25 K/uL (0-0.5) Basophils # (Auto) 0.02 K/uL (0-0.2) Micro Results Date/Time Source Procedure Growth Status 12/21/16 19:47 Stool Shiga Toxin Test - Final Complete 12/21/16 19:47 Stool Stool Culture - Final NO SALMONELLA ISOLATED,... Complete 12/21/16 19:47 Stool C.difficile Toxin B Gene (PCR) - Final No C. difficile toxin B gene detected Complete Risk Factors for Resistance * Hospitalization for 48 hours or more within the past 90 days * Current hospitalization > 5 days * History of infection with a multidrug-resistant organism * Antimicrobial use within the last 90 days Assessment & Plan Assessment 71 year old female on empiric IV Vancomycin and Primaxin (not a consult) for possible pneumonia. ID is following the patient. * Patient is quadriplegic, her CrCl needs to be adjusted down by a factor of 0.6 Plan Vancomycin IV * Loading dose: 1750 mg (25 mg/kg) * Maintenance dose: 1000 mg IV (14 mg/kg) every 24 hours * Goal trough level for pneumonia : 15 to 20 mcg/mL * Trough level ordered for 12/28 @ 1930 (prior to 2nd dose and therefore not reflective of steady state, but would like to assess dosing regimen earlier due to patient being quadriplegic) Pharmacy will continue to follow and will adjust dose/frequency as necessary. Thank you.
[2016-12-26 23:25] VITALS: BP 139/60; PULSE 63; TEMP 36.6; O2SAT 92
[2016-12-27] VITALS (8 sets, daily range): BP systolic 118–138; BP diastolic 47–60; PULSE 59–69; TEMP 34.7–36.6; O2SAT 94–100; Ht 152.4 cm; Wt 81.7 kg
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
[2016-12-27] MEDS: IMIPENEM-CILASTATIN 250 MG in DEXTROSE 5% 100ML 100 ML IV SCH ×4 (02:38→23:13)
[2016-12-27 04:25] LABS: HEMATOCRIT 24.1 % (37-47); MEAN CELL VOLUME 90.3 fL (80-100); MEAN CORPUSCULAR HEMOGLOBIN 28.1 pg (25-34); MEAN CORPUSCULAR HGB CONC 31.1 g/dl (32-36); PLATELET COUNT 210 K/uL (130-400); RED BLOOD COUNT 2.67 M/uL (4.2-5.4); WHITE BLOOD COUNT 12.78 K/uL (4.8-10.8)
[2016-12-27 04:48] LABS: BUN/CREATININE RATIO 51.7 (10-20); CALCIUM 8.8 mg/dl (8.5-10.1); CREATININE 0.82 mg/dl (0.60-1.20); POTASSIUM 4.1 mmol/L (3.5-5.1)
[2016-12-27 05:00] LABS: BETA-HYDROXYBUTYRATE 1.8 mg/dL (0.2-2.81)
[2016-12-27] MEDS: [UNRECOGNIZED DRUG - OTHER] IR SCH ×8 (05:49→23:40)
[2016-12-27] MEDS: AMPHOTERICIN B IR SCH ×8 (05:49→23:40)
[2016-12-27] MEDS ORDERED: INSULIN HUMAN REGULAR IV BOLUS 2 UNIT in SYRINGE 0 ML IV SCH (09:00)
[2016-12-27] MEDS: INSULIN REGULAR 250 UNITS in SODIUM CHLORIDE 0.9% 250ML 250 ML IV SCH ×7 (09:04→18:18)
[2016-12-27] MEDS: ALBUTEROL HFA 8 GM INHALER INH SCH ×2 (09:13→20:12)
[2016-12-27] MEDS: FLUCONAZOLE SUSP 40 MG/ML 35 ML PEG SCH (09:16)
[2016-12-27] MEDS: LACTOBACILLUS ACIDOPHILUS (FLORANEX) TAB PEG SCH ×3 (09:18→20:01)
[2016-12-27] MEDS: ESCITALOPRAM OXALATE 20 MG TAB PEG SCH (09:19)
[2016-12-27] MEDS: GABAPENTIN 250 MG/5 ML 470 ML BTL PEG SCH ×3 (09:20→23:17)
[2016-12-27] MEDS: AMLODIPINE BESYLATE 5 MG TAB PEG SCH (09:21)
[2016-12-27] MEDS: CLOPIDOGREL BISULFATE 75 MG TAB PEG SCH (09:23)
[2016-12-27] MEDS: CHOLECALCIFEROL 1000 INTER.UNIT TAB PEG SCH (09:25)
[2016-12-27] MEDS: DIPYRIDAMOLE/ASPIRIN CAP PO SCH ×2 (09:27→20:02)
[2016-12-27] MEDS: PENTOSAN POLYSULFATE SODIUM 100 MG CAP PO SCH ×2 (09:28→20:02)
[2016-12-27] MEDS: NUTREN PEG SCH ×2 (10:07→21:59)
--- NOTE | 2016-12-27 10:16 | Pharmacy Progress Note ---
Glycemic Control Progress Note Date of Service Dec 27, 2016. Scope Glycemic Pharmacist consulted for glycemic control to write orders per [facility] inpatient glycemic control protocol. Objective Accuchecks BSG (last 24hrs): Test 12/26/16 11:12 12/26/16 12:54 12/26/16 16:01 12/26/16 20:21 Bedside Glucose 303 mg/dl (70-90) 388 mg/dl (70-90) 256 mg/dl (70-90) 241 mg/dl (70-90) Test 12/27/16 04:15 12/27/16 06:44 Random Glucose 311 mg/dl (70-99) Bedside Glucose 280 mg/dl (70-90) HbA1c: Test 12/21/16 05:19 Hemoglobin A1c 8.7 % (4.5-5.6) H Recent Pertinent Medications The patient is currently receiving: * Basal insulin: Lantus 40 units every 24 hours * Correctional Insulin: Novolog Correction per scale ACHS Goal Range: Low 110 mg/dL - High 140 mg/dL Correction Factor: 12 mg/dL/unit * Prandial insulin: Novolog 15 units with each dose of Nutren 2.0 tube feeds Outpatient Anti-Diabetic Meds Lantus 40 units SQ HS Assessment & Plan ASSESSMENT: * See progress note from 12/22/16 for more background info, in short: * Pt receiving SQ basal bolus insulin regimen for hyperglycemia secondary to baseline DM (outpatient regimen on hold), and infection, fungal UTI on amphotericin B bladder irrigation and now started on IV Imipenem and Vancomycin for HCAP. * Patient is currently receiving an average of 114 units of insulin per day * 45 units of basal insulin * 69 units of prandial/correctional insulin * BSGs ranging 202 - 380 mg/dl over the past 24hrs * Changes needed to insulin regimen: * Blood sugars have not been in goal range at all while admitted, and now patient is having additional stress d/t HCAP, after discussion with Dr Vasques, we will place pt on IV Insulin infusion x ~24 hours and reassess insulin needs tomorrow morning, then transition back to basal bolus once we have better glycemic control and known insulin needs at this time. PLAN FOR INPATIENT GLYCEMIC CONTROL: * Starting IV insulin infusion per moderate stress protocol * Goal Range 140 - 180 mg/dl * In the critical care setting, continuous IV insulin infusion has been shown to be the best method for achieving glycemic targets. * Basal insulin - continue while on insulin drip * Lantus 45 units SQ HS * Please note that the plan above was derived based on current level of insulin resistance and hospital stress. These recommendations are appropriate for inpatient admission only. Plan of care upon discharge will need to be reassessed to avoid potential outpatient hypo/hyperglycemia. Thank you.
[2016-12-27] MEDS: ACETAMINOPHEN SOLN 650MG/20.3 ML UDC PO PRN (10:29)
[2016-12-27] MEDS: ALLOPURINOL 100 MG TAB PEG SCH (11:37)
[2016-12-27] MEDS: LIFITEGRAST OP SCH ×2 (11:56→23:18)
--- NOTE | 2016-12-27 13:09 | Progress Note ---
Subjective Date of Service: Dec 27, 2016. Subjective now on broad spectrum abx due to increased opacity on cxr, fluid vs infiltrate vs atelectasis. remains afebrile. wbc 12 today, trach culture pending. tolerating abx. Problem List Medical Problems: (1) Acute renal failure Status: Acute (2) Altered mental status Status: Acute (3) Dehydration Status: Acute (4) Elevated troponin Status: Acute (5) Feeding tube dysfunction Status: Acute (6) Hypotension Status: Acute (7) Seizure Status: Acute (8) Sepsis Status: Acute (9) Urinary tract infection Status: Acute (10) UTI (urinary tract infection) Status: Acute Objective Vital Signs Date Time Temp Pulse Resp B/P (MAP) Pulse Ox O2 Delivery O2 Flow Rate FiO2 12/27/16 12:00 Trach Collar 12/27/16 08:00 Trach Collar 12/27/16 07:24 61 22 138/53 (81) 95 High Flow Oxygen 12/27/16 04:00 Mechanical Ventilator 12/27/16 02:50 36.6 59 16 120/58 (78) 97 High Flow Oxygen 12/26/16 23:59 Mechanical Ventilator 12/26/16 23:25 36.6 63 18 139/60 (86) 92 High Flow Oxygen 12/26/16 20:00 Mechanical Ventilator 12/26/16 18:50 36.4 61 14 107/53 (71) 100 Mechanical Ventilator 12/26/16 16:00 Mechanical Ventilator 12/26/16 15:17 36.5 63 19 129/49 (75) 94 Mechanical Ventilator Laboratory Results Last 24 Hours Test 12/26/16 16:01 12/26/16 20:21 12/27/16 04:15 12/27/16 06:44 Bedside Glucose 256 mg/dl 241 mg/dl 280 mg/dl White Blood Count 12.78 K/uL Red Blood Count 2.67 M/uL Hemoglobin 7.5 g/dL Hematocrit 24.1 % Mean Corpuscular Volume 90.3 fL Mean Corpuscular Hemoglobin 28.1 pg Mean Corpuscular Hemoglobin Concent 31.1 g/dl RDW Standard Deviation 66.5 fL RDW Coefficient of Variation 20.3 % Platelet Count 210 K/uL Mean Platelet Volume 9.0 fL Nucleated RBC Absolute Count (auto) 0.03 K/uL Nucleated Red Blood Cells % 0.2 % Sodium Level 132 mmol/L Potassium Level 4.1 mmol/L Chloride Level 102 mmol/L Carbon Dioxide Level 25 mmol/L Anion Gap 5.0 mmol/L Blood Urea Nitrogen 42 mg/dl Creatinine 0.82 mg/dl Est Creatinine Clear Calc Drug Dose 56.9 ml/min Estimated GFR () 84.6 Estimated GFR (Non- 73.0 BUN/Creatinine Ratio 51.7 Random Glucose 311 mg/dl Calcium Level 8.8 mg/dl Beta-Hydroxybutyric Acid 1.80 mg/dL Test 12/27/16 10:05 12/27/16 11:06 12/27/16 12:01 Bedside Glucose 278 mg/dl 333 mg/dl 416 mg/dl Assessment and Plan (1) UTI (lower urinary tract infection) Assessment & Plan: completed rx (2) Chronic respiratory failure Assessment & Plan: ? infection vs fluid, follow culture
[2016-12-27] MEDS ORDERED: VANCOMYCIN INJ 1,000 MG in SODIUM CHLORIDE 0.9% 250ML 250 ML IV SCH (14:00)
[2016-12-27] MEDS: ACETAMINOPHEN SOLN 160 MG/5 ML BTL PO PRN (19:52)
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
[2016-12-27] MEDS: VANCOMYCIN INJ 1,000 MG in SODIUM CHLORIDE 0.9% 250ML 250 ML IV SCH (20:27)
[2016-12-27] MEDS: DORNASE ALFA (2500U) 2.5MG/2.5ML INH SCH (21:00)
[2016-12-27] MEDS: INSULIN GLARGINE SOLOSTAR 100 UNITS/ML 3 ML PEN SC SCH (21:44)
[2016-12-27] MEDS: IBUPROFEN 200 MG/10 ML UDC GT PRN (21:45)
[2016-12-28] VITALS (8 sets, daily range): BP systolic 98–115; BP diastolic 45–61; PULSE 60–68; TEMP 36.4–36.6; O2SAT 91–100
[2016-12-28] MEDS: INSULIN REGULAR 250 UNITS in SODIUM CHLORIDE 0.9% 250ML 250 ML IV SCH ×8 (00:34→21:06)
[2016-12-28] MEDS: DEXTROSE 50% 50 ML SYR IV PRN (04:43)
[2016-12-28 05:40] LABS: FERRITIN 249.4 ng/ml (8.0-388.0)
[2016-12-28] MEDS: IMIPENEM-CILASTATIN 250 MG in DEXTROSE 5% 100ML 100 ML IV SCH ×4 (05:57→23:30)
[2016-12-28] MEDS: DORNASE ALFA (2500U) 2.5MG/2.5ML INH SCH ×2 (07:08→20:00)
[2016-12-28] MEDS ORDERED: VANCOMYCIN TROUGH ONE ×2 (07:30→19:30)
--- NOTE | 2016-12-28 08:18 | Pharmacy Progress Note ---
Glycemic: Assessment & Plan Date of Service Dec 28, 2016. Assessment & Plan Pt started on insulin drip yesterday for sustained hyperglycemia, drip rate was started at 1.8units/hr, and increased as high as 56.8units/hr by 1900 last night. At 0300 this morning insulin drip was placed on hold for BSGs dropping and continues to be on hold. I have instructed RNAlba to continue to hold insulin drip and check BSG q1h , once BSG > 140mg/dl - restart insulin drip at 5units/hr. Pt will be receiving tube feeds at 1000 today. Will likely need another 12-24 hours of insulin drip as insulin needs are very difficult to determine at this time d/t infection, stress, tube feeds. Will continue Lantus while on insulin drip - 45 units SQ HS. Pharmacy will continue to monitor patient daily and write orders per [facility] inpatient glycemic control protocol. Thanks. * Please note that the plan above was derived based on current level of insulin resistance and hospital stress. These recommendations are appropriate for inpatient admission only. Plan of care upon discharge will need to be reassessed to avoid potential outpatient hypo/hyperglycemia.
[2016-12-28] MEDS: ESCITALOPRAM OXALATE 20 MG TAB PEG SCH (08:35)
[2016-12-28] MEDS: LACTOBACILLUS ACIDOPHILUS (FLORANEX) TAB PEG SCH ×3 (08:35→21:12)
[2016-12-28] MEDS: DIPYRIDAMOLE/ASPIRIN CAP PO SCH ×2 (08:35→21:11)
[2016-12-28] MEDS: CLOPIDOGREL BISULFATE 75 MG TAB PEG SCH (08:35)
[2016-12-28] MEDS: AMLODIPINE BESYLATE 5 MG TAB PEG SCH (08:36)
[2016-12-28] MEDS: FLUCONAZOLE SUSP 40 MG/ML 35 ML PEG SCH (08:36)
[2016-12-28] MEDS: CHOLECALCIFEROL 1000 INTER.UNIT TAB PEG SCH (08:36)
[2016-12-28] MEDS: ALLOPURINOL 100 MG TAB PEG SCH (08:36)
[2016-12-28] MEDS: PENTOSAN POLYSULFATE SODIUM 100 MG CAP PO SCH ×2 (08:37→21:12)
[2016-12-28] MEDS: NUTREN PEG SCH ×3 (08:37→21:00)
[2016-12-28] MEDS: ALBUTEROL HFA 8 GM INHALER INH SCH ×2 (08:37→21:14)
[2016-12-28 08:39] LABS: BASO % 0.2 %; BASO ABS # 0.02 K/uL (0-0.2); EOS % 1.2 %; HEMATOCRIT 21.8 % (37-47); IG% 1.5 %; LYMPH % 14.1 %; LYMPH ABS # 1.66 K/uL (1.2-3.4); MEAN CELL VOLUME 89.3 fL (80-100); MEAN CORPUSCULAR HEMOGLOBIN 28.7 pg (25-34); MEAN CORPUSCULAR HGB CONC 32.1 g/dl (32-36); MEAN PLATELET VOLUME 9.3 fL (7.4-10.4); MONO % 9.5 %; NEUT % 73.5 %; PLATELET COUNT 201 K/uL (130-400); RED BLOOD COUNT 2.44 M/uL (4.2-5.4); WHITE BLOOD COUNT 11.81 K/uL (4.8-10.8)
[2016-12-28] MEDS: GABAPENTIN 250 MG/5 ML 470 ML BTL PEG SCH ×3 (08:39→23:28)
[2016-12-28] MEDS: ACETAMINOPHEN SOLN 160 MG/5 ML BTL PO PRN (08:41)
[2016-12-28 09:12] LABS: BUN/CREATININE RATIO 66.3 (10-20); CALCIUM 9.2 mg/dl (8.5-10.1); CREATININE 0.57 mg/dl (0.60-1.20); MAGNESIUM 2.9 mg/dl (1.8-2.4)
[2016-12-28 09:48] LABS: ANISOCYTOSIS PRESENT; COMPLETE YES
--- NOTE | 2016-12-28 10:29 | Progress Note ---
Subjective Date of Service: Dec 28, 2016. Subjective pt remains afebrile. s/p treatment for fungal uti. was placed on emperic abx due to cxr changes with congestion vs pna. She is tolerating well. She remains afebrile and hemodynamically stable. was to have sputum culture but has had no secretions to culture so therefore cancelled. wbc somewhat improved today. no overnight events. Problem List Medical Problems: (1) Acute renal failure Status: Acute (2) Altered mental status Status: Acute (3) Dehydration Status: Acute (4) Elevated troponin Status: Acute (5) Feeding tube dysfunction Status: Acute (6) Hypotension Status: Acute (7) Seizure Status: Acute (8) Sepsis Status: Acute (9) Urinary tract infection Status: Acute (10) UTI (urinary tract infection) Status: Acute Objective Vital Signs Date Time Temp Pulse Resp B/P (MAP) Pulse Ox O2 Delivery O2 Flow Rate FiO2 12/28/16 09:00 66 16 92 Mechanical Ventilator 12/28/16 08:12 36.4 68 20 115/53 (73) 100 Trach Collar 12/28/16 08:00 Mechanical Ventilator 12/28/16 04:00 Mechanical Ventilator 12/28/16 03:50 36.6 62 16 115/53 (73) 92 Trach Collar 12/27/16 23:59 Mechanical Ventilator 12/27/16 23:38 36.3 69 30 127/54 (78) 100 Mechanical Ventilator 12/27/16 21:09 67 26 100 Mechanical Ventilator 12/27/16 20:47 36.3 12/27/16 20:00 Mechanical Ventilator 12/27/16 19:13 34.7 67 25 118/47 (70) 94 Mechanical Ventilator 12/27/16 16:00 100 Mechanical Ventilator 12/27/16 15:25 63 19 130/60 (83) 100 Mechanical Ventilator 12/27/16 12:00 Trach Collar Laboratory Results Item Value Date Time Urine Culture - Final Complete 12/18/16 1115 Urine,Catheterized Yeast Not Emrari Albicans Last 24 Hours Test 12/27/16 11:06 12/27/16 12:01 12/27/16 12:59 12/27/16 14:00 Bedside Glucose 333 mg/dl 416 mg/dl 436 mg/dl 412 mg/dl Test 12/27/16 15:07 12/27/16 16:03 12/27/16 17:03 12/27/16 18:07 Bedside Glucose 375 mg/dl 401 mg/dl 420 mg/dl 444 mg/dl Test 12/27/16 19:09 12/27/16 19:57 12/27/16 20:59 12/27/16 21:56 Bedside Glucose 349 mg/dl 284 mg/dl 242 mg/dl 267 mg/dl Test 12/27/16 23:11 12/28/16 00:11 12/28/16 01:04 12/28/16 01:59 Bedside Glucose 303 mg/dl 301 mg/dl 254 mg/dl 212 mg/dl Test 12/28/16 03:02 12/28/16 04:30 12/28/16 04:48 12/28/16 05:01 Bedside Glucose 158 mg/dl 97 mg/dl 133 mg/dl Iron Level 29 mcg/dl Total Iron Binding Capacity 225 mcg/dl Transferrin 180 mg/dl Transferrin % Saturation 12 % Ferritin 249.4 ng/ml Vitamin B12 Level 1843 pg/mL Folate 22.08 ng/mL Test 12/28/16 05:16 12/28/16 05:31 12/28/16 05:47 12/28/16 06:01 Bedside Glucose 111 mg/dl 95 mg/dl 93 mg/dl 90 mg/dl Test 12/28/16 06:18 12/28/16 06:31 12/28/16 06:46 12/28/16 07:07 Bedside Glucose 74 mg/dl 83 mg/dl 85 mg/dl 82 mg/dl Test 12/28/16 07:21 12/28/16 07:39 12/28/16 08:22 12/28/16 08:24 Bedside Glucose 84 mg/dl 74 mg/dl 63 mg/dl White Blood Count 11.81 K/uL Red Blood Count 2.44 M/uL Hemoglobin 7.0 g/dL Hematocrit 21.8 % Mean Corpuscular Volume 89.3 fL Mean Corpuscular Hemoglobin 28.7 pg Mean Corpuscular Hemoglobin Concent 32.1 g/dl Platelet Count 201 K/uL Mean Platelet Volume 9.3 fL Neutrophils (%) (Auto) 73.5 % Lymphocytes (%) (Auto) 14.1 % Monocytes (%) (Auto) 9.5 % Eosinophils (%) (Auto) 1.2 % Basophils (%) (Auto) 0.2 % Neutrophils # (Auto) 8.69 K/uL Lymphocytes # (Auto) 1.66 K/uL Monocytes # (Auto) 1.12 K/uL Eosinophils # (Auto) 0.14 K/uL Basophils # (Auto) 0.02 K/uL RDW Standard Deviation 67.7 fL RDW Coefficient of Variation 20.6 % Immature Granulocyte % (Auto) 1.5 % Immature Granulocyte # (Auto) 0.18 K/uL Nucleated RBC Absolute Count (auto) 0.03 K/uL Nucleated Red Blood Cells % 0.3 % Anisocytosis PRESENT Sodium Level 132 mmol/L Potassium Level 4.0 mmol/L Chloride Level 101 mmol/L Carbon Dioxide Level 24 mmol/L Anion Gap 7.0 mmol/L Blood Urea Nitrogen 38 mg/dl Creatinine 0.57 mg/dl Est Creatinine Clear Calc Drug Dose 83.2 ml/min Estimated GFR () 109.6 Estimated GFR (Non- 94.6 BUN/Creatinine Ratio 66.3 Random Glucose 61 mg/dl Calcium Level 9.2 mg/dl Magnesium Level 2.9 mg/dl Assessment and Plan (1) UTI (lower urinary tract infection) Assessment & Plan: completed rx (2) Chronic respiratory failure Assessment & Plan: ? tracheobronchitis, no clinical signs to suggest worsening pna. would give 3-5 days abx. can continue current regimen.
[2016-12-28] MEDS: LIFITEGRAST OP SCH ×2 (13:04→23:06)
[2016-12-28] MEDS: ACETAMINOPHEN SOLN 650MG/20.3 ML UDC PO PRN (15:06)
[2016-12-28] MEDS: INSULIN ASPART 100 UNITS/ML 3 ML PEN SC SCH ×2 (15:20→21:00)
[2016-12-28] MEDS ORDERED: SODIUM CHLORIDE 0.65% NA SOLN 45 ML (OCEAN) ONE (15:22)
--- NOTE | 2016-12-28 16:44 | Oncology Consultation ---
Oncology/Heme Consultation Date of Consultation: Dec 28, 2016. Attending Physician: Patricia Vasques MD Reason for Consultation: Anemia History of Present Illness Ms. Farris is a 71 year old woman well-known to me. She is a chronically ventilator-dependent quadriplegic. She has a variety of medical issues and is prone to frequent, often lengthy hospital stays. She was admitted this time due to a fungal UTI. Subsequently, she's developed an acute metabolic encephalopathy and what appears to be an evolving pneumonia. I was asked to see her regarding anemia. She has a long-standing history of anemia of chronic inflammation. For many years, she was treated with Procrit, which kept her hemoglobins more in the 11-12 range. About 3 months ago, I suggested she stop taking the Procrit, given the lack of evidence that maintaining a hemoglobin above 10 is beneficial. Since that change, her hemoglobin has mostly been in the 10-11 range. Since this hospitalization, however, her hemoglobin has trended down and is now 7. She does not appear to be visibly bleeding. She has been hyperglycemic and is on an insulin drip. However, her fluid balance is mostly negative for the hospital stay. During previous hospitalizations, particularly the longer ones, her hemoglobin has dropped in this fashion. She was acutely uncomfortable during my visit, complaining of right shoulder pain and asking to be moved onto her back. Past Medical/Surgical History Medical Problems: (1) Acute renal failure Status: Acute (2) Altered mental status Status: Acute (3) Dehydration Status: Acute (4) Elevated troponin Status: Acute (5) Feeding tube dysfunction Status: Acute (6) Hypotension Status: Acute (7) Seizure Status: Acute (8) Sepsis Status: Acute (9) Urinary tract infection Status: Acute (10) UTI (urinary tract infection) Status: Acute Family History Cancer Diabetes mellitus Heart disease Hypertension Lung disease Social History Smoking Status: Never Smoker Smokeless Tobacco Use: No Alcohol Use: none Drug Use: none Marital Status: Housing Status: lives with family, other Occupation Status: disabled, other Allergies Coded Allergies: Ampicillin (Verified Allergy, Intermediate, RASH, 10/08/16) Cephalexin (Verified Allergy, Intermediate, RASH, 10/08/16) Cephalosporins (Verified Allergy, Intermediate, rash, 10/08/16) Erythromycin (Verified Allergy, Intermediate, RASH, 10/08/16) Nitrofurantoin (Verified Allergy, Intermediate, RASH, 10/08/16) Penicillins (Verified Allergy, Intermediate, RASH, 10/08/16) Linezolid (Verified Allergy, Unknown, UNKN, 10/08/16) Sulfa Antibiotics (Verified Allergy, Unknown, ., 10/08/16) Home Medications Scheduled Albuterol Hfa (Ventolin Hfa), 2 PUFFS INH BID Allopurinol (Allopurinol), 100 MG PEG DAILY Amlodipine (Norvasc), 3.75 MG PEG DAILY Buspirone Hcl (Buspirone Hcl), 7.5 MG PEG BID Cholecalciferol (Vitamin D3), 5,000 UNITS PEG DAILY Clopidogrel (Plavix), 75 MG PEG DAILY Dipyridamole/Aspirin (Aggrenox 25-200 mg), 1 CAP PEG BID Ertapenem Sodium (Invanz), 1 GM IV DAILY Escitalopram Oxalate (Lexapro), 20 MG PEG DAILY Fluconazole (Diflucan), 100 MG PEG DAILY Gabapentin (Gabapentin), 2 ML PEG QAM Gabapentin (Gabapentin), 4 ML PEG DAILY Gabapentin (Gabapentin), 12 ML PEG QPM Gentamicin Sulfate (Topical) (Gentamicin Sulfate), 80 MG FLUSH Q SATURDAY Insulin Glargine (Lantus), 13 UNIT SC QHS Lamotrigine (Lamictal), 200 MG PEG QPM Lamotrigine (Lamictal), 200 MG PEG QD@08 Levetiracetam (Keppra), 500 MG PEG QD@2100 Levetiractam (Keppra), 250 MG PEG QD@08 Levofloxacin (Levaquin), 250 MG PEG DAILY Lifitegrast (Xiidra), 1 DROP OP BID Nutritional Supplements (Nutren 2.0), 1 CAN PEG TID Pentosan Polysulfate Sodium (Elmiron), 100 MG PEG BID Probiotic Product (Probiotic), 1 TAB PEG TID Scheduled PRN Acetaminophen (Tylenol), 1,000 MG PEG Q6 PRN for Pain Bisacodyl (Bisac-Evac), 1 SUPP MO HS PRN for Constipation Lidocaine (Lidocaine), 2 PATCH TOP DAILY PRN for Pain Lorazepam (Ativan), 0.5 MG PO QD PRN for Anxiety Melatonin (Kp Melatonin), 1 MG PO HS PRN for Insomnia Methylnaltrexone [place] (Relistor), 1 DOSE SC Q2D PRN for . Ondansetron Hcl (Zofran), 4 MG PEG AC PRN for Nausea Phenazopyridine HCl (Pyridium), 200 MG PEG BID PRN for BLADDER Polyethylene Glycol 3350 (Miralax), 17 GM PEG DAILY PRN for Constipation Polyethylene Glycol-Propylene (Systane), 1 DROPS OP QID PRN for DRYNESS Quetiapine Fumarate (Quetiapine Fumarate), 12.5 MG PO HS PRN for Sleep Miscellaneous Medications Insulin Aspart (Novolog) Lifitegrast (Xiidra) Current Inpatient Medications Current Inpatient Medications Medications (Trade) Dose Ordered Sig/Tasha Route Start Time Stop Time Status Last Admin Dose Admin Albuterol (Ventolin Hfa Inhaler) 2 puffs BID INH 12/20/16 21:00 01/19/17 20:59 12/28/16 08:37 2 PUFFS Allopurinol (Zyloprim Tab) 100 mg DAILY PEG 12/21/16 09:00 01/20/17 08:59 12/28/16 08:36 100 MG Amlodipine Besylate (Norvasc Tab) 3.75 mg DAILY PEG 12/21/16 09:00 01/20/17 08:59 12/28/16 08:36 3.75 MG Clopidogrel Bisulfate (plAVix TAB) 75 mg DAILY PEG 12/21/16 09:00 01/20/17 08:59 12/28/16 08:35 75 MG Dipyridamole/ Aspirin (Aggrenox 200MG/ 25MG Cap) 1 cap BID PO 12/20/16 21:00 01/19/17 20:59 12/28/16 08:35 1 CAP Escitalopram Oxalate (Lexapro Tab) 20 mg DAILY PEG 12/21/16 09:00 01/20/17 08:59 12/28/16 08:35 20 MG Lamotrigine (Lamictal Tab) 200 mg QD@08 PEG 12/21/16 08:00 01/20/17 07:59 12/28/16 09:01 200 MG Lamotrigine (Lamictal Tab) 200 mg QPM PEG 12/20/16 21:00 01/19/17 20:59 12/27/16 20:01 200 MG Lidocaine (Lidoderm Patch 5%) 2 patch DAILY PRN TD 12/20/16 20:30 01/19/17 20:29 Ondansetron HCl (Zofran Tab) 4 mg AC PRN PO 12/20/16 20:30 01/19/17 20:29 Phenazopyridine HCl (Pyridium Tab) 200 mg BID PRN PO 12/20/16 20:30 01/19/17 20:29 12/21/16 08:24 200 MG Buspirone HCl (Buspar Tab) 7.5 mg BID PEG 12/20/16 21:00 01/19/17 20:59 12/28/16 08:35 7.5 MG Cholecalciferol (Vitamin D Tab) 5,000 inter.unit DAILY PEG 12/21/16 09:00 01/20/17 08:59 12/28/16 08:36 5,000 INTER.UNIT Methylnaltrexone [place] (Relistor Inj) 12 mg Q2D PRN SQ 12/20/16 22:30 01/19/17 22:29 Pentosan Polysulfate Sodium (Elmiron) 100 mg BID PO 12/20/16 21:00 01/19/17 20:59 12/28/16 08:37 100 MG Polyethylene (Miralax Powder Packet) 17 gm DAILY PRN PEG 12/20/16 20:30 01/19/17 20:29 Artificial Tears (Artificial Tears) 1 drops QID PRN OP 12/20/16 20:30 01/19/17 20:29 Lactobacillus Acidophilus (Floranex Tab) 1 tab TID PEG 12/20/16 21:00 01/19/17 20:59 12/28/16 13:03 1 TAB Gabapentin (Neurontin) 600 mg DAILY@2300 PEG 12/20/16 23:00 01/19/17 22:59 12/27/16 23:17 600 MG Gabapentin (Neurontin) 200 mg DAILY@1600 PEG 12/21/16 16:00 01/20/17 15:59 12/28/16 15:25 200 MG Gabapentin (Neurontin) 100 mg QAM PEG 12/21/16 09:00 01/20/17 08:59 12/28/16 08:39 100 MG Glucose (Glucose 40% Gel) 15-30 GRAMS 15 GRAMS... UD PRN PO 12/20/16 22:30 01/19/17 22:29 Glucose (Glucose Chew Tab) 4-8 Tablets 4 Tabl... UD PRN PO 12/20/16 22:30 01/19/17 22:29 Dextrose (Dextrose 50% 50ML Syringe) 25-50ML OF 50% DW IV FOR... UD PRN IV 12/20/16 22:30 01/19/17 22:29 12/28/16 04:43 25 ML Glucagon (Glucagon Inj) 1 mg UD PRN SQ 12/20/16 22:30 01/19/17 22:29 Acetaminophen (Tylenol Soln) 1,000 mg Q6H PRN PO 12/21/16 09:00 01/20/17 08:59 12/28/16 08:41 1,000 MG Heparin Sodium (Porcine) (Heparin 100 Unit/ml 5ml Flush) 5 ml PRN PRN IV 12/22/16 01:00 01/21/17 00:59 Miscellaneous Information (Consult Glycemic Management Pharmacy) 1 ea UD PRN N/A 12/22/16 02:30 01/21/17 02:29 Fluconazole (Diflucan Susp) 100 mg DAILY PEG 12/23/16 09:00 12/31/16 08:59 12/28/16 08:36 100 MG Non-Formulary Medication 1 ea TID@1000,1600,2100 PEG 12/24/16 10:00 01/23/17 09:59 12/28/16 15:21 1 EA Lifitegrast (Xiidra 5% Oph Soln) 1 drop BID@1100,2300 OP 12/24/16 11:00 01/23/17 10:59 12/28/16 13:04 1 DROP Ibuprofen (Motrin Susp) 400 mg Q4H PRN GT 12/24/16 17:15 01/23/17 17:14 12/27/16 21:45 400 MG Acetaminophen (Tylenol Soln) 650 mg Q6H PRN PO 12/26/16 11:15 01/25/17 11:14 12/28/16 15:06 650 MG Imipenem/ Cilastatin Sodium 250 mg/Dextrose 110 ml @ 100 mls/hr Q6H IV 12/26/16 20:00 01/02/17 19:59 12/28/16 13:03 100 MLS/HR Vancomycin HCl (Consult) 1 ea UD PRN N/A 12/26/16 21:00 01/25/17 20:59 Vancomycin HCl 1000 mg/Sodium Chloride 270 ml @ 125 mls/hr DAILY@2000 IV 12/27/16 20:00 01/02/17 19:59 12/27/16 20:27 125 MLS/HR Insulin Human Regular 250 units/ Sodium Chloride 252.5 ml @ 0 mls/hr DAILY@1130 IV 12/27/16 09:00 01/26/17 08:59 12/28/16 14:00 8.4 MLS/HR Dornase Biju (Pulmozyme Inhalation Soln 2.5ml Amp) 2.5 ml BIDR INH 12/27/16 20:30 01/26/17 20:29 12/28/16 07:08 2.5 ML Insulin Aspart (novoLOG ASPART) 17 units TID@1000,1600,2100 SC 12/28/16 16:00 01/27/17 15:59 12/28/16 15:20 17 UNITS Insulin Glargine (Lantus Solostar Pen) 50 units HS AK 12/28/16 21:00 01/27/17 20:59 Review of Systems Constitutional: + fatigue, No fever ENT: No unusual epistaxis Respiratory: No cough, No hemoptysis Abdomen: No pain, No GI bleeding Genitourinary - Female: No dysuria, No hematuria Hematologic / Lymphatic: No abnormal bleeding/bruising Physical Exam Date Time Temp Pulse Resp B/P (MAP) Pulse Ox O2 Delivery O2 Flow Rate FiO2 12/28/16 16:00 Mechanical Ventilator 12/28/16 15:16 36.6 60 22 110/61 (77) 100 Trach Collar 12/28/16 12:23 36.6 64 20 98/52 (67) 100 Trach Collar 12/28/16 12:00 Mechanical Ventilator 12/28/16 09:00 66 16 92 Mechanical Ventilator 12/28/16 08:12 36.4 68 20 115/53 (73) 100 Trach Collar 12/28/16 08:00 Mechanical Ventilator 12/28/16 04:00 Mechanical Ventilator 12/28/16 03:50 36.6 62 16 115/53 (73) 92 Trach Collar 12/27/16 23:59 Mechanical Ventilator 12/27/16 23:38 36.3 69 30 127/54 (78) 100 Mechanical Ventilator 12/27/16 21:09 67 26 100 Mechanical Ventilator 12/27/16 20:47 36.3 12/27/16 20:00 Mechanical Ventilator 12/27/16 19:13 34.7 67 25 118/47 (70) 94 Mechanical Ventilator General Appearance: + mild distress (due to pain), + pertinent finding ( chronically ill-appearing woman visibly uncomfortable) Eyes: EOMI, sclerae normal (anicteric) Neck: + pertinent finding (tracheostomy clear, with no purulent drainage) Respiratory/Chest: + pertinent finding (mechanical breath sounds bilaterally) Cardiovascular: regular rate, rhythm Abdomen/GI: non tender, soft Extremities/Musculoskelatal: no calf tenderness, no pedal edema Neurologic/Psych: + pertinent finding (chronic quadriplegia) Laboratory Results Last 24 Hours Test 12/27/16 17:03 12/27/16 18:07 12/27/16 19:09 12/27/16 19:57 Bedside Glucose 420 mg/dl 444 mg/dl 349 mg/dl 284 mg/dl Test 12/27/16 20:59 12/27/16 21:56 12/27/16 23:11 12/28/16 00:11 Bedside Glucose 242 mg/dl 267 mg/dl 303 mg/dl 301 mg/dl Test 12/28/16 01:04 12/28/16 01:59 12/28/16 03:02 12/28/16 04:30 Bedside Glucose 254 mg/dl 212 mg/dl 158 mg/dl 97 mg/dl Test 12/28/16 04:48 12/28/16 05:01 12/28/16 05:16 12/28/16 05:31 Iron Level 29 mcg/dl Total Iron Binding Capacity 225 mcg/dl Transferrin 180 mg/dl Transferrin % Saturation 12 % Ferritin 249.4 ng/ml Vitamin B12 Level 1843 pg/mL Folate 22.08 ng/mL Bedside Glucose 133 mg/dl 111 mg/dl 95 mg/dl Test 12/28/16 05:47 12/28/16 06:01 12/28/16 06:18 12/28/16 06:31 Bedside Glucose 93 mg/dl 90 mg/dl 74 mg/dl 83 mg/dl Test 12/28/16 06:46 12/28/16 07:07 12/28/16 07:21 12/28/16 07:39 Bedside Glucose 85 mg/dl 82 mg/dl 84 mg/dl 74 mg/dl Test 12/28/16 08:22 12/28/16 08:24 12/28/16 09:27 12/28/16 10:37 Bedside Glucose 63 mg/dl 149 mg/dl 241 mg/dl White Blood Count 11.81 K/uL Red Blood Count 2.44 M/uL Hemoglobin 7.0 g/dL Hematocrit 21.8 % Mean Corpuscular Volume 89.3 fL Mean Corpuscular Hemoglobin 28.7 pg Mean Corpuscular Hemoglobin Concent 32.1 g/dl Platelet Count 201 K/uL Mean Platelet Volume 9.3 fL Neutrophils (%) (Auto) 73.5 % Lymphocytes (%) (Auto) 14.1 % Monocytes (%) (Auto) 9.5 % Eosinophils (%) (Auto) 1.2 % Basophils (%) (Auto) 0.2 % Neutrophils # (Auto) 8.69 K/uL Lymphocytes # (Auto) 1.66 K/uL Monocytes # (Auto) 1.12 K/uL Eosinophils # (Auto) 0.14 K/uL Basophils # (Auto) 0.02 K/uL RDW Standard Deviation 67.7 fL RDW Coefficient of Variation 20.6 % Immature Granulocyte % (Auto) 1.5 % Immature Granulocyte # (Auto) 0.18 K/uL Nucleated RBC Absolute Count (auto) 0.03 K/uL Nucleated Red Blood Cells % 0.3 % Anisocytosis PRESENT Sodium Level 132 mmol/L Potassium Level 4.0 mmol/L Chloride Level 101 mmol/L Carbon Dioxide Level 24 mmol/L Anion Gap 7.0 mmol/L Blood Urea Nitrogen 38 mg/dl Creatinine 0.57 mg/dl Est Creatinine Clear Calc Drug Dose 83.2 ml/min Estimated GFR () 109.6 Estimated GFR (Non- 94.6 BUN/Creatinine Ratio 66.3 Random Glucose 61 mg/dl Calcium Level 9.2 mg/dl Magnesium Level 2.9 mg/dl Test 12/28/16 12:06 12/28/16 13:00 12/28/16 14:01 12/28/16 15:02 Bedside Glucose 233 mg/dl 248 mg/dl 233 mg/dl 196 mg/dl Test 9/15/17 16:03 Bedside Glucose 262 mg/dl Assessment & Plan Ms. Farris is anemic today. This often happens to her during these admissions, though this decline is more marked than usual. Her baseline hemoglobin is likely around 10, so this would be a ~3 gram drop. I suspect it is multifactorial, with elements of phlebotomy, marrow suppression from her infection, and underlying anemia of chronic disease. Her iron studies are normal , her vitamin B12 and folate are normal, and her bilirubins are not suggestive of hemolysis. I would check her stool to rule out occult GI blood loss. I would also give her a blood transfusion. If she can tolerate it, 2 units would be ideal. Otherwise, one would be sufficient. I would not restart her Procrit at this time.
[2016-12-28] MEDS ORDERED: NURSING VERBAL MED ORDER ONE (20:00)
[2016-12-28] MEDS ORDERED: ONDANSETRON INJ 2 MG/ML 2 ML VIAL ONE (20:07)
--- NOTE | 2016-12-28 20:07 | DIAGNOSTIC IMAGING REPORT ---
CHEST ONE VIEW PORTABLE CLINICAL HISTORY: 71 years-old Female presenting with respiratory distress. TECHNIQUE: Portable semiupright AP view of the chest was obtained. COMPARISON: 12/26/2016. FINDINGS: Patient is FREDRICK rotated. Tracheostomy tube, right subclavian Mediport, left subclavian central line remain in place. Overlying external leads degrade image quality. Atherosclerosis of aortic arch. Cardiac silhouette mildly enlarged. Persistent very hilar vascular indistinctness with perihilar and bibasilar opacities. Small right pleural effusion suspected. No pneumothorax. Degenerative changes of the bilateral glenohumeral joints. Upper abdomen normal. IMPRESSION: 1. No significant change in perihilar and bibasilar hazy opacities. This is favored to represent pulmonary edema, although infection or aspiration could appear similarly. Further evaluation with cross-sectional imaging could be obtained if clinically warranted. 2. Mild cardiomegaly. Electronically signed by: Nikolay Lo M.D. 12/28/2016 8:05 PM Dictated Date/Time: 12/28/2016 8:02 PM
[2016-12-28] MEDS ORDERED: FUROSEMIDE INJ 20 MG in SYRINGE 0 ML IV ONE (20:15)
[2016-12-28] MEDS ORDERED: ONDANSETRON INJ 2 MG/ML 2 ML VIAL IV PRN (20:15)
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
[2016-12-28] MEDS: INSULIN GLARGINE SOLOSTAR 100 UNITS/ML 3 ML PEN SC SCH (21:00)
[2016-12-28] MEDS: VANCOMYCIN INJ 1,000 MG in SODIUM CHLORIDE 0.9% 250ML 250 ML IV SCH (21:06)
[2016-12-29] VITALS (21 sets, daily range): BP systolic 83–134; BP diastolic 45–83; PULSE 56–66; TEMP 35–36.6; O2SAT 90–100
[2016-12-29] MEDS: INSULIN REGULAR 250 UNITS in SODIUM CHLORIDE 0.9% 250ML 250 ML IV SCH (00:33)
[2016-12-29] MEDS ORDERED: FUROSEMIDE INJ 20 MG in SYRINGE 0 ML IV SCH (02:00)
[2016-12-29] MEDS: IMIPENEM-CILASTATIN 250 MG in DEXTROSE 5% 100ML 100 ML IV SCH ×4 (05:00→23:46)
[2016-12-29] MEDS: ACETAMINOPHEN SOLN 160 MG/5 ML BTL PO PRN ×3 (05:05→20:56)
[2016-12-29 05:47] LABS: HEMATOCRIT 22.1 % (37-47); MEAN CELL VOLUME 88.8 fL (80-100); MEAN CORPUSCULAR HEMOGLOBIN 28.9 pg (25-34); MEAN CORPUSCULAR HGB CONC 32.6 g/dl (32-36); MEAN PLATELET VOLUME 9.4 fL (7.4-10.4); PLATELET COUNT 224 K/uL (130-400); RED BLOOD COUNT 2.49 M/uL (4.2-5.4)
[2016-12-29 06:16] LABS: BUN/CREATININE RATIO 55.3 (10-20); CALCIUM 9.3 mg/dl (8.5-10.1); CREATININE 0.77 mg/dl (0.60-1.20); MAGNESIUM 2.8 mg/dl (1.8-2.4); POTASSIUM 4.8 mmol/L (3.5-5.1)
[2016-12-29] MEDS: DORNASE ALFA (2500U) 2.5MG/2.5ML INH SCH ×3 (07:03→19:58)
[2016-12-29] MEDS: AMLODIPINE BESYLATE 5 MG TAB PEG SCH (07:50)
[2016-12-29] MEDS ORDERED: SODIUM CHLORIDE 0.9% 250ML 250 ML IV SCH (08:30)
[2016-12-29 09:10] LABS: ALLEN TEST POS (POS); ARTERIAL BLD GAS O2 SATURATION 91.6 % (90-95); ARTERIAL BLOOD GAS BASE EXCESS -4.2 mEq/L (-9-1.8); ARTERIAL BLOOD GAS HCO3 19 mmol/L (19-24); ARTERIAL BLOOD GAS PO2 71 mm/Hg (80-95); ARTERIAL BLOOD GAS pH 7.44 (7.35-7.45); O2 ADMINISTRATION 2L
--- NOTE | 2016-12-29 09:25 | DIAGNOSTIC IMAGING REPORT ---
SUPINE ABDOMEN 2 VIEWS CLINICAL HISTORY: Abdominal distention COMPARISON STUDY: 06/13/2016 FINDINGS: There is a relatively gasless abdomen. There is no bowel dilatation identified. There is a gastrostomy tube present. There is a spinal catheter present. IMPRESSION: Gasless abdomen. No evidence of pathologic bowel dilatation Electronically signed by: Viktor Whitfield M.D. 12/29/2016 9:23 AM Dictated Date/Time: 12/29/2016 9:22 AM
[2016-12-29] MEDS: PENTOSAN POLYSULFATE SODIUM 100 MG CAP PO SCH ×2 (09:34→20:57)
[2016-12-29] MEDS: DIPYRIDAMOLE/ASPIRIN CAP PO SCH ×2 (09:34→20:58)
[2016-12-29] MEDS: GABAPENTIN 250 MG/5 ML 470 ML BTL PEG SCH ×3 (09:34→22:08)
[2016-12-29] MEDS: CLOPIDOGREL BISULFATE 75 MG TAB PEG SCH (09:35)
[2016-12-29] MEDS: ESCITALOPRAM OXALATE 20 MG TAB PEG SCH (09:35)
[2016-12-29] MEDS: ALLOPURINOL 100 MG TAB PEG SCH (09:36)
[2016-12-29] MEDS: CHOLECALCIFEROL 1000 INTER.UNIT TAB PEG SCH (09:36)
[2016-12-29] MEDS: LACTOBACILLUS ACIDOPHILUS (FLORANEX) TAB PEG SCH ×3 (09:36→20:57)
[2016-12-29] MEDS: ALBUTEROL HFA 8 GM INHALER INH SCH (09:37)
[2016-12-29 09:42] LABS: BUN/CREATININE RATIO 53.7 (10-20); CALCIUM 9.2 mg/dl (8.5-10.1); CREATININE 0.79 mg/dl (0.60-1.20); POTASSIUM 4.6 mmol/L (3.5-5.1)
[2016-12-29] MEDS: FLUCONAZOLE SUSP 40 MG/ML 35 ML PEG SCH (09:53)
[2016-12-29] MEDS: IBUPROFEN 200 MG/10 ML UDC GT PRN ×2 (09:55→15:52)
[2016-12-29] MEDS: INSULIN ASPART 100 UNITS/ML 3 ML PEN SC SCH ×4 (10:00→22:06)
[2016-12-29] MEDS: NUTREN PEG SCH ×3 (10:00→20:55)
[2016-12-29] MEDS: LIFITEGRAST OP SCH ×2 (11:45→22:07)
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
[2016-12-29] MEDS ORDERED: INSULIN GLARGINE SOLOSTAR 100 UNITS/ML 3 ML PEN SC ONE (13:00)
--- NOTE | 2016-12-29 13:02 | Pharmacy Progress Note ---
Glycemic Control Progress Note Date of Service Dec 29, 2016. Scope Glycemic Pharmacist consulted for glycemic control to write orders per [facility] inpatient glycemic control protocol. Objective Accuchecks BSG (last 24hrs): Test 12/28/16 13:00 12/28/16 14:01 12/28/16 15:02 12/28/16 16:03 Bedside Glucose 248 mg/dl (70-90) 233 mg/dl (70-90) 196 mg/dl (70-90) 262 mg/dl (70-90) Test 12/28/16 17:23 12/28/16 18:04 12/28/16 19:04 12/28/16 20:04 Bedside Glucose 332 mg/dl (70-90) 291 mg/dl (70-90) 253 mg/dl (70-90) 219 mg/dl (70-90) Test 12/28/16 21:01 12/28/16 21:55 12/28/16 23:00 12/28/16 23:16 Bedside Glucose 164 mg/dl (70-90) 162 mg/dl (70-90) 122 mg/dl (70-90) 123 mg/dl (70-90) Test 12/28/16 23:37 12/28/16 23:51 12/29/16 00:17 12/29/16 00:56 Bedside Glucose 121 mg/dl (70-90) 128 mg/dl (70-90) 147 mg/dl (70-90) 164 mg/dl (70-90) Test 12/29/16 01:59 12/29/16 03:07 12/29/16 05:01 12/29/16 05:31 Bedside Glucose 161 mg/dl (70-90) 162 mg/dl (70-90) 147 mg/dl (70-90) Random Glucose 143 mg/dl (70-99) Test 12/29/16 07:08 12/29/16 08:57 12/29/16 09:16 12/29/16 10:03 Bedside Glucose 152 mg/dl (70-90) 137 mg/dl (70-90) 133 mg/dl (70-90) Random Glucose 128 mg/dl (70-99) Test 12/29/16 11:09 12/29/16 12:06 Bedside Glucose 145 mg/dl (70-90) 170 mg/dl (70-90) HbA1c: Test 12/21/16 05:19 Hemoglobin A1c 8.7 % (4.5-5.6) H Recent Pertinent Medications The patient is currently receiving: * Basal insulin: Lantus 50 units every 24 hours - DOSE HELD LAST NIGHT PER OVERNIGHT PROVIDER D/T HOLDING TUBE FEEDS * IV Insulin infusion running at 1.6-2units/hr * Prandial insulin: Novolog 17 units with each dose of Nutren 2.0 tube feeds - have been on hold since last night Outpatient Anti-Diabetic Meds Basal Insulin - Lantus 40 units SQ QPM Assessment & Plan ASSESSMENT: * See progress note from 12/22/16 for more background info, in short: * Pt receiving SQ basal bolus insulin regimen for hyperglycemia secondary to baseline DM (outpatient regimen on hold), and infection, previously fungal UTI completed amphotericin B bladder irrigation treatment and now on day #3 of 5 of IV Imipenem and Vancomycin for HCAP. * Blood sugars have been at goal on insulin drip and bolus doses of Novolog with tube feeds and continuing basal Lantus. Although Lantus was held last night * Will attempt to transition pt off of insulin drip, pt has been on it > 48hrs. Will give Lantus dose now, then QHS with hold parameters * Restart Novolog when Tube Feeds are restarted * Novolog CF ACHS for correctional insulin PLAN FOR INPATIENT GLYCEMIC CONTROL: * Discontinue IV insulin infusion per moderate stress protocol at 1900 today ( 6 hours overlap with Lantus dose) * Goal Range 140 - 180 mg/dl * Basal insulin * Lantus 50 units SQ x1 dose NOW at 1300 * Lantus 50 units SQ HS - hold for BSG < 110mg/dl * Prandial insulin * Novolog 17 units SQ with each tube feed - resume when tube feeds are resumed * Correctional insulin * Acchchecks ACHS * Goal range 110-140mg/dl * CF: 12mg/dl/unit * Please note that the plan above was derived based on current level of insulin resistance and hospital stress. These recommendations are appropriate for inpatient admission only. Plan of care upon discharge will need to be reassessed to avoid potential outpatient hypo/hyperglycemia. Thank you.
--- NOTE | 2016-12-29 13:10 | Hematology/Oncology Prog Note ---
Hematology/Onc Progress Note Date of Service Dec 29, 2016. Diagnoses Chronic anemia VDRF UTI/Pneumonia Metabolic encephalopathy Hyperglycemia Medications Medications Administered Medications (Trade) Dose Ordered Sig/Tasha Route Start Time Stop Time Status Last Admin Dose Admin Amphotericin B 12.5 mg/Sterile Water 250 ml @ 0 mls/hr DAILY@00,06,12,18 IR 12/21/16 00:00 12/28/16 02:00 DC 12/27/16 23:40 500 MLS/HR Albuterol (Ventolin Hfa Inhaler) 2 puffs BID INH 12/20/16 21:00 01/19/17 20:59 12/29/16 09:37 2 PUFFS Allopurinol (Zyloprim Tab) 100 mg DAILY PEG 12/21/16 09:00 01/20/17 08:59 12/29/16 09:36 100 MG Amlodipine Besylate (Norvasc Tab) 3.75 mg DAILY PEG 12/21/16 09:00 01/20/17 08:59 12/28/16 08:36 3.75 MG Clopidogrel Bisulfate (plAVix TAB) 75 mg DAILY PEG 12/21/16 09:00 01/20/17 08:59 12/29/16 09:35 75 MG Dipyridamole/ Aspirin (Aggrenox 200MG/ 25MG Cap) 1 cap BID PO 12/20/16 21:00 01/19/17 20:59 12/29/16 09:34 1 CAP Escitalopram Oxalate (Lexapro Tab) 20 mg DAILY PEG 12/21/16 09:00 01/20/17 08:59 12/29/16 09:35 20 MG Fluconazole (Diflucan Susp) 100 mg DAILY PEG 12/21/16 09:00 12/22/16 13:57 DC 12/22/16 10:08 100 MG Lamotrigine (Lamictal Tab) 200 mg QD@08 PEG 12/21/16 08:00 01/20/17 07:59 12/29/16 09:35 200 MG Lamotrigine (Lamictal Tab) 200 mg QPM PEG 12/20/16 21:00 01/19/17 20:59 12/28/16 21:11 200 MG Levetiracetam (Keppra Soln) 500 mg QD@2100 PO 12/20/16 21:00 12/27/16 00:11 DC 12/23/16 20:18 500 MG Levetiracetam (Keppra Soln) 250 mg QD@08 PO 12/21/16 08:00 12/27/16 00:11 DC 12/24/16 09:45 250 MG Phenazopyridine HCl (Pyridium Tab) 200 mg BID PRN PO 12/20/16 20:30 01/19/17 20:29 12/21/16 08:24 200 MG Quetiapine Fumarate (seroQUEL TAB) 12.5 mg HS PRN PO 12/20/16 20:30 12/26/16 14:34 DC 12/25/16 03:01 12.5 MG Buspirone HCl (Buspar Tab) 7.5 mg BID PEG 12/20/16 21:00 01/19/17 20:59 12/29/16 09:34 7.5 MG Cholecalciferol (Vitamin D Tab) 5,000 inter.unit DAILY PEG 12/21/16 09:00 01/20/17 08:59 12/29/16 09:36 5,000 INTER.UNIT Miscellaneous Information (Order Awaiting Action) 1 ea QS N/A 12/21/16 00:00 12/24/16 09:47 DC 12/22/16 23:50 1 EA Pentosan Polysulfate Sodium (Elmiron) 100 mg BID PO 12/20/16 21:00 01/19/17 20:59 12/29/16 09:34 100 MG Lactobacillus Acidophilus (Floranex Tab) 1 tab TID PEG 12/20/16 21:00 01/19/17 20:59 12/29/16 12:42 1 TAB Gabapentin (Neurontin) 600 mg DAILY@2300 PEG 12/20/16 23:00 01/19/17 22:59 12/28/16 23:28 600 MG Insulin Glargine (Lantus Solostar Pen) 13 units HS SC 12/20/16 20:30 12/21/16 14:07 DC 12/21/16 00:15 13 UNITS Miscellaneous Information (Order Awaiting Action) 1 ea QS N/A 12/21/16 08:00 12/24/16 07:54 DC 12/24/16 00:41 1 EA Insulin Aspart (novoLOG ASPART) SLIDING SCALE G... ACHS SC 12/20/16 21:00 12/22/16 14:43 DC 12/22/16 12:19 3 UNITS Gabapentin (Neurontin) 200 mg DAILY@1600 PEG 12/21/16 16:00 01/20/17 15:59 12/28/16 15:25 200 MG Gabapentin (Neurontin) 100 mg QAM PEG 12/21/16 09:00 01/20/17 08:59 12/29/16 09:34 100 MG Dextrose (Dextrose 50% 50ML Syringe) 25-50ML OF 50% DW IV FOR... UD PRN IV 12/20/16 22:30 01/19/17 22:29 12/28/16 04:43 25 ML Heparin Sodium (Porcine) (Heparin 10 Unit/ ml 5 ml Flush) 5 ml STK-MED ONCE .ROUTE 12/21/16 08:48 12/21/16 08:49 DC 12/21/16 08:48 5 ML Acetaminophen (Tylenol Soln) 1,000 mg Q6H PRN PO 12/21/16 09:00 01/20/17 08:59 12/29/16 12:41 1,000 MG Insulin Glargine (Lantus Solostar Pen) 20 units HS SC 12/21/16 21:00 12/22/16 14:34 DC 12/21/16 20:12 20 UNITS Enteral Nutritional Formula (Novasource Renal) 1,000 ml UD PRN PEG 12/21/16 15:15 12/22/16 14:26 DC 12/22/16 10:59 1,000 ML Insulin Human Regular 10 units/ Syringe 10 ml @ 30 mls/min TODAY@0230 IV 12/22/16 02:30 12/22/16 02:31 DC 12/22/16 03:04 30 MLS/MIN Insulin Aspart (novoLOG ASPART) SLIDING SCALE G... NOW STAT SC 12/22/16 02:36 12/22/16 02:37 DC 12/22/16 03:05 7 UNITS Acetaminophen (Tylenol Soln) 325 mg STK-MED ONCE .ROUTE 12/22/16 12:57 12/22/16 12:58 DC 12/22/16 13:00 325 MG Fluconazole (Diflucan Susp) 100 mg DAILY PEG 12/23/16 09:00 12/31/16 08:59 12/29/16 09:53 100 MG Enteral Nutritional Formula (Novasource Renal) 250 ml TID@1000,1600,2100 PEG 12/22/16 16:00 12/23/16 17:25 DC 12/23/16 15:44 250 ML Insulin Human Regular (novoLIN-R) 8 units TID@0930,1530,2030 NM 12/22/16 15:30 12/23/16 13:44 DC 12/23/16 09:36 8 UNITS Insulin Human Regular (novoLIN-R) SLIDING SCALE TID@0930,1530,2030 NM 12/22/16 15:30 12/26/16 13:51 DC 12/26/16 09:39 5 UNITS Insulin Glargine (Lantus Solostar Pen) 30 units HS NM 12/22/16 21:00 12/23/16 13:45 DC 12/22/16 20:20 30 UNITS Dornase Biju (Pulmozyme Inhalation Soln 2.5ml Amp) 2.5 ml BIDR INH 12/23/16 13:45 12/25/16 21:00 DC 12/25/16 19:16 2.5 ML Insulin Human Regular (novoLIN-R) 9 units TID@0930,1530,2030 NM 12/23/16 15:30 12/25/16 07:57 DC 12/24/16 21:05 9 UNITS Insulin Glargine (Lantus Solostar Pen) 35 units HS NM 12/23/16 21:00 12/25/16 07:58 DC 12/24/16 21:05 35 UNITS Non-Formulary Medication 1 ea TID@1000,1600,2100 PEG 12/24/16 10:00 01/23/17 09:59 12/28/16 15:21 1 EA Lifitegrast (Xiidra 5% Oph Soln) 1 drop BID@1100,2300 OP 12/24/16 11:00 01/23/17 10:59 12/29/16 11:45 1 DROP Famotidine 20 mg/ Syringe 10 ml @ 5 mls/min TODAY@1645 IV 12/24/16 16:45 9/11/17 16:46 DC 12/24/16 16:57 5 MLS/MIN Ibuprofen (Motrin Susp) 400 mg Q4H PRN GT 12/24/16 17:15 01/23/17 17:14 12/29/16 09:55 400 MG Insulin Human Regular (novoLIN-R) 11 units TID@0930,1530,2030 NM 12/25/16 09:30 12/26/16 08:23 DC 12/25/16 20:56 11 UNITS Insulin Glargine (Lantus Solostar Pen) 40 units HS SC 12/25/16 21:00 12/26/16 13:53 DC 12/25/16 20:57 40 UNITS Potassium Chloride 20 meq/ Prmx 100 ml @ 50 mls/hr Q2H IV 12/25/16 12:00 12/25/16 15:59 DC 12/25/16 15:39 50 MLS/HR Insulin Human Regular (novoLIN-R) 15 units TID@0930,1530,2030 NM 12/26/16 09:30 12/26/16 13:52 DC 12/26/16 09:40 15 UNITS Acetaminophen (Tylenol Soln) 650 mg STK-MED ONCE .ROUTE 12/26/16 09:57 12/26/16 09:58 DC 12/26/16 10:08 650 MG Acetaminophen (Tylenol Soln) 650 mg Q6H PRN PO 12/26/16 11:15 01/25/17 11:14 12/28/16 15:06 650 MG Insulin Human Regular 7 unit/ Syringe 7 ml @ 1 mls/min TODAY@1400 IV 12/26/16 14:00 12/26/16 14:06 DC 12/26/16 13:56 1 MLS/MIN Insulin Aspart (novoLOG ASPART) SLIDING SCALE TID@0930,1530,2030 NM 12/26/16 15:30 12/27/16 08:36 DC 12/26/16 20:46 9 UNITS Insulin Aspart (novoLOG ASPART) 15 units TID@0930,1530,2030 NM 12/26/16 15:30 12/27/16 08:36 DC 12/26/16 20:47 15 UNITS Insulin Glargine (Lantus Solostar Pen) 45 units HS NM 12/26/16 21:00 12/28/16 13:20 DC 12/27/16 21:44 45 UNITS Imipenem/ Cilastatin Sodium 250 mg/Dextrose 110 ml @ 100 mls/hr Q6H IV 12/26/16 20:00 12/30/16 23:59 12/29/16 11:46 100 MLS/HR Vancomycin HCl 1750 mg/Sodium Chloride 535 ml @ 200 mls/hr NOW ONCE IV 12/26/16 19:56 12/26/16 22:36 DC 12/26/16 20:32 200 MLS/HR Vancomycin HCl 1000 mg/Sodium Chloride 270 ml @ 125 mls/hr DAILY@2000 IV 12/27/16 20:00 12/29/16 11:30 DC 12/28/16 21:06 125 MLS/HR Insulin Human Regular 2 unit/ Syringe 2 ml @ 1 mls/min TODAY@0900 IV 12/27/16 09:00 12/27/16 09:01 DC 12/27/16 09:03 1 MLS/MIN Insulin Human Regular 250 units/ Sodium Chloride 252.5 ml @ 0 mls/hr DAILY@1130 IV 12/27/16 09:00 12/29/16 19:00 12/29/16 00:33 2 MLS/HR Dornase Biju (Pulmozyme Inhalation Soln 2.5ml Amp) 2.5 ml BIDR INH 12/27/16 20:30 01/26/17 20:29 12/29/16 07:03 2.5 ML Insulin Aspart (novoLOG ASPART) 17 units TID@1000,1600,2100 SC 12/28/16 16:00 01/27/17 15:59 12/28/16 15:20 17 UNITS Sodium Chloride (Mccune Nasal Barton) 225 sprays STK-MED ONCE .ROUTE 12/28/16 15:22 12/28/16 15:23 DC 12/28/16 15:24 225 SPRAYS Furosemide 20 mg/ Syringe 2 ml @ 4 mls/min TODAY@0200 IV 12/29/16 02:00 12/29/16 02:01 DC 12/29/16 02:24 4 MLS/MIN Ondansetron HCl (Zofran Inj) 4 mg STK-MED ONCE .ROUTE 12/28/16 20:07 12/28/16 20:08 DC 12/28/16 20:10 4 MG Furosemide 20 mg/ Syringe 2 ml @ 4 mls/min NOW ONCE IV 12/28/16 20:15 12/28/16 20:16 DC 12/28/16 20:23 4 MLS/MIN Sodium Chloride 250 ml @ 250 mls/hr Q1H IV 12/29/16 08:30 12/29/16 09:29 DC 12/29/16 09:53 250 MLS/HR Subjective Ms. Farrsi is very confused. She keeps asking her aide to "give me a shot," which the aide takes to mean she wants to be put to sleep. She did not get her blood transfusion until this AM due to a difficult cross-match. Her hemoglobin was stable this AM from yesterday and her stool was negative for blood. She also does not appear to be bleeding elsewhere. Review of Systems: Patient was confused and not easily redirected. She did not answer ROS questions. Vital Signs Vital Signs Past 12 Hours Date Time Temp Pulse Resp B/P (MAP) Pulse Ox O2 Delivery O2 Flow Rate FiO2 12/29/16 12:24 35.0 57 17 111/63 (79) 94 Trach Collar 12/29/16 12:00 95 Mechanical Ventilator 2.0 12/29/16 11:44 35.0 57 31 113/71 92 12/29/16 11:13 35.0 56 17 111/63 94 12/29/16 08:19 36.4 58 18 105/51 (69) 90 Trach Collar 12/29/16 08:00 95 Mechanical Ventilator 2.0 12/29/16 07:48 36.4 59 25 106/50 (68) 98 Mechanical Ventilator 2.0 12/29/16 07:03 66 16 92 Mechanical Ventilator 12/29/16 04:30 102/83 (89) 12/29/16 04:00 96 Mechanical Ventilator 2.0 12/29/16 04:00 36.6 63 24 83/47 (59) 94 Physical Exam Constitutional: Level of Distress: mild distress, chronically ill Psychiatric: Mental Status: active & alert, confused, agitated Lungs: Auscuitation: pertinent finding (clear to ausculation anteriorly, with mechanical BS) Cardiovascular: Heart Auscultation: RRR Abdomen: Inspection & Palpation: soft, no tenderness, guarding & rebound Musculoskeletal: hypotnicity, pertinent finding (changes consistent with chronic quadriplegia) Extremities: no edema Laboratory Last 24 Hours Test 12/28/16 14:01 12/28/16 15:02 12/28/16 16:03 12/28/16 17:23 Bedside Glucose 233 mg/dl 196 mg/dl 262 mg/dl 332 mg/dl Test 12/28/16 18:04 12/28/16 19:04 12/28/16 20:01 12/28/16 20:04 Bedside Glucose 291 mg/dl 253 mg/dl 219 mg/dl Vancomycin Level Trough 20.6 mcg/ml Test 12/28/16 21:01 12/28/16 21:55 12/28/16 23:00 12/28/16 23:16 Bedside Glucose 164 mg/dl 162 mg/dl 122 mg/dl 123 mg/dl Test 12/28/16 23:37 12/28/16 23:51 12/29/16 00:17 12/29/16 00:56 Bedside Glucose 121 mg/dl 128 mg/dl 147 mg/dl 164 mg/dl Test 12/29/16 01:59 12/29/16 03:07 12/29/16 05:01 12/29/16 05:31 Bedside Glucose 161 mg/dl 162 mg/dl 147 mg/dl White Blood Count 11.80 K/uL Red Blood Count 2.49 M/uL Hemoglobin 7.2 g/dL Hematocrit 22.1 % Mean Corpuscular Volume 88.8 fL Mean Corpuscular Hemoglobin 28.9 pg Mean Corpuscular Hemoglobin Concent 32.6 g/dl RDW Standard Deviation 66.9 fL RDW Coefficient of Variation 20.6 % Platelet Count 224 K/uL Mean Platelet Volume 9.4 fL Sodium Level 126 mmol/L Potassium Level 4.8 mmol/L Chloride Level 97 mmol/L Carbon Dioxide Level 19 mmol/L Anion Gap 10.0 mmol/L Blood Urea Nitrogen 43 mg/dl Creatinine 0.77 mg/dl Est Creatinine Clear Calc Drug Dose 61.6 ml/min Estimated GFR () 91.3 Estimated GFR (Non- 78.8 BUN/Creatinine Ratio 55.3 Random Glucose 143 mg/dl Calcium Level 9.3 mg/dl Magnesium Level 2.8 mg/dl Test 12/29/16 07:08 12/29/16 08:45 12/29/16 08:57 12/29/16 09:16 Bedside Glucose 152 mg/dl 137 mg/dl Urine Osmolality 165 mOms/kg Urine Random Sodium 13 mEq/L Arterial Blood pH 7.44 Arterial Blood Partial Pressure CO2 29 mmHg Arterial Blood Partial Pressure O2 71 mm/Hg Arterial Blood HCO3 19 mmol/L Arterial Blood Oxygen Saturation 91.6 % Arterial Blood Base Excess -4.2 mEq/L Arterial Blood Gas Delivery 2L Yogesh Test POS Sodium Level 128 mmol/L Potassium Level 4.6 mmol/L Chloride Level 98 mmol/L Carbon Dioxide Level 21 mmol/L Anion Gap 9.0 mmol/L Blood Urea Nitrogen 42 mg/dl Creatinine 0.79 mg/dl Est Creatinine Clear Calc Drug Dose 60.0 ml/min Estimated GFR () 88.5 Estimated GFR (Non- 76.4 BUN/Creatinine Ratio 53.7 Random Glucose 128 mg/dl Osmolality 286 mOsm/kg Calcium Level 9.2 mg/dl Test 12/29/16 10:03 12/29/16 10:40 12/29/16 11:09 12/29/16 12:06 Bedside Glucose 133 mg/dl 145 mg/dl 170 mg/dl Stool Occult Blood NEGATIVE Assessment & Plan Ms. Farris is more agitated today. This has been attributed to metabolic encephalopathy, due to her UTI or to the possible developing pneumonia or to her other metabolic derangements. She is currently getting her blood transfusion , which was delayed due to difficulties with her cross-match. I will check back in on her tomorrow to make sure she responded appropriately. 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
[2016-12-29] MEDS ORDERED: OPTIRAY 320 IV PRN (14:15)
--- NOTE | 2016-12-29 14:46 | DIAGNOSTIC IMAGING REPORT ---
CT HEAD WITHOUT CONTRAST (CT) CLINICAL HISTORY: altered mental status COMPARISON STUDY: 11/23/2016 TECHNIQUE: Axial CT of the brain is performed from the vertex to the skull base. IV contrast was not administered for this examination. A dose lowering technique was utilized adhering to the principles of ALARA. CT DOSE: FINDINGS: No intra or extra-axial mass lesions are visualized. There is no CT evidence of acute cortical infarction. There is no evidence of midline shift. There is no acute hemorrhage. No calvarial fractures are visualized. There are moderate white matter hypodensities likely on a small vessel basis. There is an old left occipital infarct and old right parieto-occipital infarct. There is no evidence of pathologic ventricular dilatation. There is pansinus mucosal thickening and fluid. IMPRESSION: 1. No acute intracranial findings 2. 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 Progressive pansinus disease Electronically signed by: Viktor Whitfield M.D. 12/29/2016 2:44 PM Dictated Date/Time: 12/29/2016 2:42 PM
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
--- NOTE | 2016-12-29 14:52 | DIAGNOSTIC IMAGING REPORT ---
CT OF THE CERVICAL SPINE CLINICAL HISTORY: neck pain ACUTE CHANGE IN MENTAL STATUS COMPARISON STUDY: 11/27/2012 CT DOSE: 1777.29 mGy.cm TECHNIQUE: CT scan of the cervical spine was performed from the skull base to the thoracic inlet. Images are reviewed in the axial, sagittal, and coronal planes. IV contrast was not administered for this examination. A dose lowering technique was utilized adhering to the principles of ALARA. FINDINGS: There is medial deviation of the cervical internal carotids. The thyroid gland is mildly enlarged. There is a partially visualized indeterminate 16 mm groundglass opacity within the left lung apex. There is an indwelling tracheostomy tube. There is prevertebral soft tissue widening, likely secondary to medially positioned internal carotids. There is C3-4 fusion. There is 2 mm of retrolisthesis of C4 on C5, unchanged from the preceding study. There is a minor superior endplate T1 compression deformity similar to the prior study. If there is clinical concern over the presence of cord or disc pathology, an MRI would be considered the test of choice in follow-up. IMPRESSION: 1. No evidence of acute fracture or traumatic subluxation 2. Prevertebral soft tissue widening, likely secondary to medially positioned internal carotids 3. 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 Indeterminate 16 mm groundglass opacity within the left lung apex Electronically signed by: Viktor Whitfield M.D. 12/29/2016 2:50 PM Dictated Date/Time: 12/29/2016 2:45 PM
[2016-12-29] MEDS ORDERED: FUROSEMIDE INJ 40 MG in SYRINGE 0 ML IV SCH (15:00)
--- NOTE | 2016-12-29 15:05 | DIAGNOSTIC IMAGING REPORT ---
CT ANGIOGRAM OF THE CHEST CLINICAL HISTORY: Respiratory difficulty. Possible pulmonary embolism. COMPARISON STUDY: 10/02/2016 TECHNIQUE: Following the IV administration of 71 mL of Optiray-320, CT angiogram of the thorax was performed from the thoracic inlet to the lung bases utilizing the pulmonary embolus protocol. Images are reviewed in the axial, sagittal, and coronal planes. IV contrast was administered without complication. MIP imaging was performed. A dose lowering technique was utilized adhering to the principles of ALARA. CT DOSE: FINDINGS: There are persistent enlarged mediastinal lymph nodes measuring up to 15 mm in short axis. There was no evidence of thoracic aortic dilatation. There were no pulmonary artery filling defects to indicate acute pulmonary embolism. No pleural effusions are visualized. Multifocal airspace opacities with dense consolidative changes involving the right lower lobe. The findings are suggestive of a multifocal pneumonia. There is an indwelling tracheostomy tube. There are bilateral central venous catheters. IMPRESSION: 1. No evidence of acute pulmonary embolism 2. Stable mediastinal lymphadenopathy 3. Multifocal airspace opacities, consistent with a multifocal pneumonia Electronically signed by: Viktor Whitfield M.D. 12/29/2016 2:57 PM Dictated Date/Time: 12/29/2016 2:53 PM
[2016-12-29] MEDS: ALBUT/IPRATROP 3MG/0.5MG NEB 3 ML VIAL INH SCH ×2 (15:57→19:16)
[2016-12-29 16:13] LABS: INR 1.1 (0.9-1.1); PARTIAL THROMBOPLASTIN RATIO 1.2; PROTHROMBIN TIME (PATIENT) 11.3 SECONDS (9.0-12.0)
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
[2016-12-29 16:20] LABS: BUN/CREATININE RATIO 48.1 (10-20); CALCIUM 8.8 mg/dl (8.5-10.1); CREATININE 0.86 mg/dl (0.60-1.20); POTASSIUM 4.4 mmol/L (3.5-5.1)
[2016-12-29] MEDS: HEPARIN SOD 5000 UNIT/0.5 ML CARP SQ SCH (21:06)
[2016-12-29] MEDS: VANCOMYCIN INJ 750 MG in SODIUM CHLORIDE 0.9% 250ML 250 ML IV SCH (22:02)
[2016-12-29] MEDS: INSULIN GLARGINE SOLOSTAR 100 UNITS/ML 3 ML PEN SC SCH (22:06)
[2016-12-30] VITALS (16 sets, daily range): BP systolic 97–116; BP diastolic 52–94; PULSE 58–71; TEMP 36.4–36.9; O2SAT 94–100
[2016-12-30] MEDS: IMIPENEM-CILASTATIN 250 MG in DEXTROSE 5% 100ML 100 ML IV SCH ×4 (05:15→23:55)
[2016-12-30] MEDS: HEPARIN SOD 5000 UNIT/0.5 ML CARP SQ SCH ×3 (05:23→22:06)
[2016-12-30] MEDS: INSULIN ASPART 100 UNITS/ML 3 ML PEN SC SCH ×6 (05:24→20:58)
[2016-12-30] MEDS: ALBUT/IPRATROP 3MG/0.5MG NEB 3 ML VIAL INH SCH ×5 (05:39→18:54)
[2016-12-30] MEDS ORDERED: BISACODYL 10 MG SUPP PR PRN (08:00)
[2016-12-30] MEDS ORDERED: NURSING VERBAL MED ORDER ONE (08:00)
[2016-12-30] MEDS: DORNASE ALFA (2500U) 2.5MG/2.5ML INH SCH ×2 (08:00→19:58)
[2016-12-30 08:27] LABS: BASO % 0.1 %; BASO ABS # 0.01 K/uL (0-0.2); HEMATOCRIT 24.4 % (37-47); IG% 1.3 %; LYMPH % 13.2 %; LYMPH ABS # 1.22 K/uL (1.2-3.4); MEAN CELL VOLUME 89.1 fL (80-100); MEAN CORPUSCULAR HEMOGLOBIN 28.8 pg (25-34); MEAN CORPUSCULAR HGB CONC 32.4 g/dl (32-36); MONO % 7.6 %; NEUT % 76.8 %; PLATELET COUNT 227 K/uL (130-400); RED BLOOD COUNT 2.74 M/uL (4.2-5.4); WHITE BLOOD COUNT 9.23 K/uL (4.8-10.8)
--- NOTE | 2016-12-30 08:51 | DIAGNOSTIC IMAGING REPORT ---
[facility]UB CLINICAL HISTORY: 71 years-old Female presenting with ileus. TECHNIQUE: Single supine view of the abdomen was obtained. COMPARISON: 12/29/2016. FINDINGS: Paucity of bowel gas, nonspecific. Scattered colonic gas noted. No gross pneumoperitoneum. Gastrostomy tube projects over the left abdomen. Osteopenia suggested. Degenerative changes of the lumbar spine. IMPRESSION: 1. Paucity bowel gas, nonspecific. If there is continuing clinical concern for ileus, CT of the abdomen and pelvis could be obtained. Electronically signed by: Nikolay Lo M.D. 12/30/2016 8:50 AM Dictated Date/Time: 12/30/2016 8:47 AM
[2016-12-30] MEDS: AMLODIPINE BESYLATE 5 MG TAB PEG SCH (09:00)
[2016-12-30 09:01] LABS: BUN/CREATININE RATIO 55.2 (10-20); CALCIUM 9.1 mg/dl (8.5-10.1); CREATININE 0.81 mg/dl (0.60-1.20)
[2016-12-30 09:04] LABS: ANISOCYTOSIS PRESENT; COMPLETE YES; ROULEAUX 1+
[2016-12-30] MEDS ORDERED: PANTOprazole SOD 40 MG TAB PEG SCH (09:43)
[2016-12-30] MEDS: NUTREN PEG SCH ×3 (10:00→20:38)
--- NOTE | 2016-12-30 10:03 | Pulmonology Progress Note ---
Pulmonary Progress Note Date of Service Dec 30, 2016. Attending Dr. Staples Subjective Patient seen and examined. She has remained agitated with episodes of sleeping. No respiratory events noted overnight. Objective VS reviewed. General Appearance: agitated with periods of somnolence. Not able to be directed today and screaming out. Head: ATRAUMATIC Eyes: PERRLA, SCLERAE NORMAL ENT: other (hearing intact) Neck: TRACHEA MIDLINE (tracheostomy in place, no drainage or breakdown surrounding the tube, ), limited range of motion, midline tenderness, other ( posterior neck tenderness) Respiratory: NO RESPIRATORY DISTRESS, other (tachypnea, good air entry bilaterally, bibasilar crackles no use of accessory muscles),chest wall + for right tunnel subclavian central line Cardiovasular: REGULAR RATE/RHYTHM, NORMAL S1S2, NORMAL PERIPHERAL PULSES Abdomen: NON TENDER, NORMAL BOWEL SOUNDS, other (protuberant abdomen, PEG tube in place) Genitourinary - Female: EXTERNAL GENITALIA NORMAL Back: NORMAL INSPECTION Upper Extremities: other (no clubbing, no cyanosis) Lower Extremities: other (sarcopenia) Pulses: dorsalis pedis (R) (2+), dorsalis pedis (L) (2+) Neuro: Not able to be directed today, Awake, not alert not orientated. Repeating words and then falling asleep. Labs reviewed. Na 128, Ur Osm 165, Ur Na 13, CO2 19, BUN 45, Cr 0.81. Procalcitonin 0.51 Hgb 7.2--> 7.9 (s/p transfusion 1 U PRBCs) Culture Tracheal aspirate 12/30/2016--pending Blood cx 12/30/2016--pending Imaging reviewed. CT HEAD WITHOUT CONTRAST (CT) CLINICAL HISTORY: altered mental status COMPARISON STUDY: 11/23/2016 TECHNIQUE: Axial CT of the brain is performed from the vertex to the skull base. IV contrast was not administered for this examination. A dose lowering technique was utilized adhering to the principles of ALARA. CT DOSE: FINDINGS: No intra or extra-axial mass lesions are visualized. There is no CT evidence of acute cortical infarction. There is no evidence of midline shift. There is no acute hemorrhage. No calvarial fractures are visualized. There are moderate white matter hypodensities likely on a small vessel basis. There is an old left occipital infarct and old right parieto-occipital infarct. There is no evidence of pathologic ventricular dilatation. There is pansinus mucosal thickening and fluid. IMPRESSION: 1. No acute intracranial findings 2. 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 Progressive pansinus disease CT OF THE CERVICAL SPINE CLINICAL HISTORY: neck pain ACUTE CHANGE IN MENTAL STATUS COMPARISON STUDY: 11/27/2012 CT DOSE: 1777.29 mGy.cm TECHNIQUE: CT scan of the cervical spine was performed from the skull base to the thoracic inlet. Images are reviewed in the axial, sagittal, and coronal planes. IV contrast was not administered for this examination. A dose lowering technique was utilized adhering to the principles of ALARA. FINDINGS: There is medial deviation of the cervical internal carotids. The thyroid gland is mildly enlarged. There is a partially visualized indeterminate 16 mm groundglass opacity within the left lung apex. There is an indwelling tracheostomy tube. There is prevertebral soft tissue widening, likely secondary to medially positioned internal carotids. There is C3-4 fusion. There is 2 mm of retrolisthesis of C4 on C5, unchanged from the preceding study. There is a minor superior endplate T1 compression deformity similar to the prior study. If there is clinical concern over the presence of cord or disc pathology, an MRI would be considered the test of choice in follow-up. IMPRESSION: 1. No evidence of acute fracture or traumatic subluxation 2. Prevertebral soft tissue widening, likely secondary to medially positioned internal carotids 3. 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 Indeterminate 16 mm groundglass opacity within the left lung apex CT ANGIOGRAM OF THE CHEST CLINICAL HISTORY: Respiratory difficulty. Possible pulmonary embolism. COMPARISON STUDY: 10/02/2016 TECHNIQUE: Following the IV administration of 71 mL of Optiray-320, CT angiogram of the thorax was performed from the thoracic inlet to the lung bases utilizing the pulmonary embolus protocol. Images are reviewed in the axial, sagittal, and coronal planes. IV contrast was administered without complication. MIP imaging was performed. A dose lowering technique was utilized adhering to the principles of ALARA. CT DOSE: FINDINGS: There are persistent enlarged mediastinal lymph nodes measuring up to 15 mm in short axis. There was no evidence of thoracic aortic dilatation. There were no pulmonary artery filling defects to indicate acute pulmonary embolism. No pleural effusions are visualized. Multifocal airspace opacities with dense consolidative changes involving the right lower lobe. The findings are suggestive of a multifocal pneumonia. There is an indwelling tracheostomy tube. There are bilateral central venous catheters. IMPRESSION: 1. No evidence of acute pulmonary embolism 2. Stable mediastinal lymphadenopathy 3. 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 Keep SaO2 between 88-92% and PaO2 of 60. Peak airway pressures remain elevated, which may be suggestive of bronchospasm or mucus plugging. CT head negative for acute intracranial process. CTA chest shows bilateral multifocal pneumonia mostly in the right. There is also an apical left upper lobe groundglass density which is probably consistent with same process. Mental status waxes and wanes--consistent with delirium. Would treat underlying metabolic derangements and this could also be contributing. Continue with antibiotics per ID recommendations I would obtain tracheal aspirate for possible speciation of bacteria Continue with dornase alpha, frequent suctioning and chest PT Continue with Duonebs q6h Blood cultures and sputum cultures are pending. Provide adequate pain control Try to keep in negative balance as she does have a component of right heart failure and diastolic dysfunction. She is currently 9.4L since admission Keep Hgb > 7, Hematology on board Hyponatremia--per primary team c/w DVT ppx Pulmonary will continue to follow. Data Medications: Current Inpatient Medications Medications (Trade) Dose Ordered Sig/Tasha Route Start Time Stop Time Status Last Admin Dose Admin Allopurinol (Zyloprim Tab) 100 mg DAILY PEG 12/21/16 09:00 01/20/17 08:59 12/29/16 09:36 100 MG Amlodipine Besylate (Norvasc Tab) 3.75 mg DAILY PEG 12/21/16 09:00 01/20/17 08:59 12/28/16 08:36 3.75 MG Clopidogrel Bisulfate (plAVix TAB) 75 mg DAILY PEG 12/21/16 09:00 01/20/17 08:59 12/29/16 09:35 75 MG Dipyridamole/ Aspirin (Aggrenox 200MG/ 25MG Cap) 1 cap BID PO 12/20/16 21:00 01/19/17 20:59 12/29/16 20:58 1 CAP Escitalopram Oxalate (Lexapro Tab) 20 mg DAILY PEG 12/21/16 09:00 01/20/17 08:59 12/29/16 09:35 20 MG Lamotrigine (Lamictal Tab) 200 mg QD@08 PEG 12/21/16 08:00 01/20/17 07:59 12/29/16 09:35 200 MG Lamotrigine (Lamictal Tab) 200 mg QPM PEG 12/20/16 21:00 01/19/17 20:59 12/29/16 20:58 200 MG Lidocaine (Lidoderm Patch 5%) 2 patch DAILY PRN TD 12/20/16 20:30 01/19/17 20:29 Ondansetron HCl (Zofran Tab) 4 mg AC PRN PO 12/20/16 20:30 01/19/17 20:29 Phenazopyridine HCl (Pyridium Tab) 200 mg BID PRN PO 12/20/16 20:30 01/19/17 20:29 12/21/16 08:24 200 MG Buspirone HCl (Buspar Tab) 7.5 mg BID PEG 12/20/16 21:00 01/19/17 20:59 12/29/16 20:56 7.5 MG Cholecalciferol (Vitamin D Tab) 5,000 inter.unit DAILY PEG 12/21/16 09:00 01/20/17 08:59 12/29/16 09:36 5,000 INTER.UNIT Methylnaltrexone Rogers (Relistor Inj) 12 mg Q2D PRN SQ 12/20/16 22:30 01/19/17 22:29 Pentosan Polysulfate Sodium (Elmiron) 100 mg BID PO 12/20/16 21:00 01/19/17 20:59 12/29/16 20:57 100 MG Polyethylene (Miralax Powder Packet) 17 gm DAILY PRN PEG 12/20/16 20:30 01/19/17 20:29 Artificial Tears (Artificial Tears) 1 drops QID PRN OP 12/20/16 20:30 01/19/17 20:29 Lactobacillus Acidophilus (Floranex Tab) 1 tab TID PEG 12/20/16 21:00 01/19/17 20:59 12/29/16 20:57 1 TAB Gabapentin (Neurontin) 600 mg DAILY@2300 PEG 12/20/16 23:00 10/7/17 22:59 12/29/16 22:08 600 MG Gabapentin (Neurontin) 200 mg DAILY@1600 PEG 12/21/16 16:00 01/20/17 15:59 12/29/16 15:51 200 MG Gabapentin (Neurontin) 100 mg QAM PEG 12/21/16 09:00 01/20/17 08:59 12/29/16 09:34 100 MG Glucose (Glucose 40% Gel) 15-30 GRAMS 15 GRAMS... UD PRN PO 12/20/16 22:30 01/19/17 22:29 Glucose (Glucose Chew Tab) 4-8 Tablets 4 Tabl... UD PRN PO 12/20/16 22:30 01/19/17 22:29 Dextrose (Dextrose 50% 50ML Syringe) 25-50ML OF 50% DW IV FOR... UD PRN IV 12/20/16 22:30 01/19/17 22:29 12/28/16 04:43 25 ML Glucagon (Glucagon Inj) 1 mg UD PRN SQ 12/20/16 22:30 01/19/17 22:29 Acetaminophen (Tylenol Soln) 1,000 mg Q6H PRN PO 12/21/16 09:00 01/20/17 08:59 12/29/16 20:56 1,000 MG Heparin Sodium (Porcine) (Heparin 100 Unit/ml 5ml Flush) 5 ml PRN PRN IV 12/22/16 01:00 01/21/17 00:59 Miscellaneous Information (Consult Glycemic Management Pharmacy) 1 ea UD PRN N/A 12/22/16 02:30 01/21/17 02:29 Fluconazole (Diflucan Susp) 100 mg DAILY PEG 12/23/16 09:00 12/31/16 08:59 12/29/16 09:53 100 MG Non-Formulary Medication 1 ea TID@1000,1600,2100 PEG 12/24/16 10:00 01/23/17 09:59 12/29/16 20:55 1 EA Lifitegrast (Xiidra 5% Oph Soln) 1 drop BID@1100,2300 OP 12/24/16 11:00 01/23/17 10:59 12/29/16 22:07 1 DROP Ibuprofen (Motrin Susp) 400 mg Q4H PRN GT 12/24/16 17:15 01/23/17 17:14 12/29/16 15:52 400 MG Acetaminophen (Tylenol Soln) 650 mg Q6H PRN PO 12/26/16 11:15 01/25/17 11:14 12/28/16 15:06 650 MG Imipenem/ Cilastatin Sodium 250 mg/Dextrose 110 ml @ 100 mls/hr Q6H IV 12/26/16 20:00 12/30/16 23:59 12/30/16 05:15 100 MLS/HR Vancomycin HCl (Consult) 1 ea UD PRN N/A 12/26/16 21:00 12/30/16 23:59 Dornase Biju (Pulmozyme Inhalation Soln 2.5ml Amp) 2.5 ml BIDR INH 12/27/16 20:30 01/26/17 20:29 12/29/16 07:03 2.5 ML Insulin Aspart (novoLOG ASPART) 17 units TID@1000,1600,2100 SC 12/28/16 16:00 01/27/17 15:59 12/29/16 22:06 17 UNITS Insulin Glargine (Lantus Solostar Pen) 50 units HS SC 12/28/16 21:00 01/27/17 20:59 12/29/16 22:06 50 UNITS Ondansetron HCl (Zofran Inj) 4 mg Q6H PRN IV 12/28/16 20:15 01/27/17 20:14 Vancomycin HCl 750 mg/Sodium Chloride 265 ml @ 125 mls/hr DAILY@2200 IV 12/29/16 22:00 12/30/16 23:59 12/29/16 22:02 125 MLS/HR Furosemide (Lasix Tab) 20 mg QAM PO 12/30/16 09:00 01/29/17 08:59 Insulin Aspart (novoLOG ASPART) SLIDING SCALE G... DAILY@0600,1000,1600,2100 SC 12/29/16 21:00 01/28/17 20:59 12/30/16 05:24 2 UNITS Heparin Sodium (Porcine) (Heparin Sq 5000 Unit/0.5ml) 5,000 unit Q8 SQ 12/29/16 22:00 01/28/17 21:59 12/30/16 05:23 5,000 UNIT Ioversol (Optiray 320) 125 ml UD PRN IV 12/29/16 14:15 01/02/17 14:14 Albuterol/ Ipratropium (Duoneb) 3 ml QIDR INH 12/29/16 16:00 01/28/17 15:59 12/30/16 05:39 3 ML Bisacodyl (Dulcolax Supp) 10 mg DAILY PRN OH 12/30/16 08:00 01/29/17 07:59 Pantoprazole Sodium (Protonix Tab) 40 mg QAM PEG 12/31/16 09:00 01/30/17 08:59 UNV Pantoprazole Sodium (Protonix Tab) 40 mg 0943 ONCE PEG 12/30/16 09:43 12/30/16 09:44 UNV Furosemide 40 mg/ Syringe 4 ml @ 4 mls/min ONE IV 12/30/16 10:00 01/29/17 09:59 UNV Vital Signs: Date Time Temp Pulse Resp B/P (MAP) Pulse Ox O2 Delivery O2 Flow Rate FiO2 12/30/16 07:38 36.4 71 18 97/59 (72) 94 Trach Collar 12/30/16 07:34 36.5 70 32 116/52 (73) 96 Mechanical Ventilator 2.0 12/30/16 05:40 65 26 98 Mechanical Ventilator 12/30/16 04:00 36.4 63 20 100/54 (69) 100 Mechanical Ventilator 2.0 12/30/16 04:00 100 Mechanical Ventilator 2.0 12/29/16 23:59 100 Mechanical Ventilator 2.0 12/29/16 23:47 36.2 63 24 117/55 (75) 100 Mechanical Ventilator 2.0 12/29/16 20:00 98 Mechanical Ventilator 2.0 12/29/16 19:37 36.4 60 20 99/45 (63) 100 12/29/16 19:16 63 34 100 Mechanical Ventilator 12/29/16 16:01 62 16 99 Mechanical Ventilator 12/29/16 16:00 95 Mechanical Ventilator 2.0 12/29/16 15:32 58 24 112/55 (74) 98 12/29/16 14:06 35.0 57 27 123/66 98 12/29/16 13:00 35.2 58 29 134/53 92 12/29/16 12:24 35.0 57 17 111/63 (79) 94 Trach Collar 12/29/16 12:00 95 Mechanical Ventilator 2.0 12/29/16 11:44 35.0 57 31 113/71 92 12/29/16 11:13 35.0 56 17 111/63 94 Laboratory Results: Last 24 Hours Test 12/29/16 10:03 12/29/16 10:40 12/29/16 11:09 12/29/16 12:06 Bedside Glucose 133 mg/dl 145 mg/dl 170 mg/dl Stool Occult Blood NEGATIVE Test 12/29/16 14:01 12/29/16 14:04 12/29/16 15:26 12/29/16 15:56 Bedside Glucose 189 mg/dl 161 mg/dl 148 mg/dl Prothrombin Time 11.3 SECONDS Prothromb Time International Ratio 1.1 Activated Partial Thromboplast Time 32.2 SECONDS Partial Thromboplastin Ratio 1.2 Sodium Level 127 mmol/L Potassium Level 4.4 mmol/L Chloride Level 99 mmol/L Carbon Dioxide Level 18 mmol/L Anion Gap 10.0 mmol/L Blood Urea Nitrogen 41 mg/dl Creatinine 0.86 mg/dl Est Creatinine Clear Calc Drug Dose 55.1 ml/min Estimated GFR () 79.9 Estimated GFR (Non- 68.9 BUN/Creatinine Ratio 48.1 Random Glucose 147 mg/dl Calcium Level 8.8 mg/dl Ammonia 21.0 umol/L Test 12/29/16 17:41 12/29/16 19:19 12/29/16 20:48 12/30/16 05:21 Bedside Glucose 213 mg/dl 235 mg/dl 195 mg/dl 154 mg/dl Test 12/30/16 08:15 White Blood Count 9.23 K/uL Red Blood Count 2.74 M/uL Hemoglobin 7.9 g/dL Hematocrit 24.4 % Mean Corpuscular Volume 89.1 fL Mean Corpuscular Hemoglobin 28.8 pg Mean Corpuscular Hemoglobin Concent 32.4 g/dl Platelet Count 227 K/uL Mean Platelet Volume 9.0 fL Neutrophils (%) (Auto) 76.8 % Lymphocytes (%) (Auto) 13.2 % Monocytes (%) (Auto) 7.6 % Eosinophils (%) (Auto) 1.0 % Basophils (%) (Auto) 0.1 % Neutrophils # (Auto) 7.09 K/uL Lymphocytes # (Auto) 1.22 K/uL Monocytes # (Auto) 0.70 K/uL Eosinophils # (Auto) 0.09 K/uL Basophils # (Auto) 0.01 K/uL RDW Standard Deviation 63.9 fL RDW Coefficient of Variation 19.9 % Immature Granulocyte % (Auto) 1.3 % Immature Granulocyte # (Auto) 0.12 K/uL Nucleated RBC Absolute Count (auto) 0.03 K/uL Nucleated Red Blood Cells % 0.3 % Anisocytosis PRESENT Rouleau 1+ Sodium Level 128 mmol/L Potassium Level 4.0 mmol/L Chloride Level 98 mmol/L Carbon Dioxide Level 19 mmol/L Anion Gap 11.0 mmol/L Blood Urea Nitrogen 45 mg/dl Creatinine 0.81 mg/dl Est Creatinine Clear Calc Drug Dose 58.5 ml/min Estimated GFR () 85.9 Estimated GFR (Non- 74.1 BUN/Creatinine Ratio 55.2 Random Glucose 93 mg/dl Calcium Level 9.1 mg/dl Procalcitonin 0.51 ng/ml
[2016-12-30] MEDS: ALLOPURINOL 100 MG TAB PEG SCH (10:20)
[2016-12-30] MEDS: CHOLECALCIFEROL 1000 INTER.UNIT TAB PEG SCH (10:21)
[2016-12-30] MEDS: LACTOBACILLUS ACIDOPHILUS (FLORANEX) TAB PEG SCH ×3 (10:21→20:36)
[2016-12-30] MEDS: DIPYRIDAMOLE/ASPIRIN CAP PO SCH ×2 (10:21→20:36)
[2016-12-30] MEDS: PENTOSAN POLYSULFATE SODIUM 100 MG CAP PO SCH ×2 (10:21→20:36)
[2016-12-30] MEDS: CLOPIDOGREL BISULFATE 75 MG TAB PEG SCH (10:23)
[2016-12-30] MEDS: ESCITALOPRAM OXALATE 20 MG TAB PEG SCH (10:23)
[2016-12-30] MEDS: FLUCONAZOLE SUSP 40 MG/ML 35 ML PEG SCH (10:23)
[2016-12-30] MEDS: GABAPENTIN 250 MG/5 ML 470 ML BTL PEG SCH ×3 (10:25→22:02)
[2016-12-30] MEDS ORDERED: FUROSEMIDE INJ 40 MG in SYRINGE 0 ML IV ONE (10:30)
[2016-12-30] MEDS: FUROSEMIDE 20 MG TAB PO SCH (11:09)
--- NOTE | 2016-12-30 11:12 | Pharmacy Progress Note ---
Pharmacy Abx Dose Progress Nt Date of Service Dec 30, 2016. Pharmacy Dosing Scope The patient is currently receiving the following antimicrobial agents per Pharmacy consult: Vancomycin 750mg IV Q 24hrs Primaxin 250mg IV Q 6hrs {not per pharmacy dosing consult} Objective Height (Feet): 5 Height (Inches): 0.00 Weight (Kilograms): 73.200 Vital Signs (Past 12Hrs) Vital Signs Past 12 Hours Date Time Temp Pulse Resp B/P (MAP) Pulse Ox O2 Delivery O2 Flow Rate FiO2 12/30/16 08:00 96 Mechanical Ventilator 2.0 12/30/16 07:38 36.4 71 18 97/59 (72) 94 Trach Collar 12/30/16 07:34 36.5 70 32 116/52 (73) 96 Mechanical Ventilator 2.0 12/30/16 05:40 65 26 98 Mechanical Ventilator 12/30/16 04:00 36.4 63 20 100/54 (69) 100 Mechanical Ventilator 2.0 12/30/16 04:00 100 Mechanical Ventilator 2.0 12/29/16 23:59 100 Mechanical Ventilator 2.0 12/29/16 23:47 36.2 63 24 117/55 (75) 100 Mechanical Ventilator 2.0 Lab Results (24Hrs) Laboratory Tests (24 Hours) Test 12/30/16 08:15 White Blood Count 9.23 K/uL (4.8-10.8) Red Blood Count 2.74 M/uL (4.2-5.4) L Hemoglobin 7.9 g/dL (12.0-16.0) L Hematocrit 24.4 % (37-47) L Mean Corpuscular Volume 89.1 fL (80-100) Mean Corpuscular Hemoglobin 28.8 pg (25-34) Mean Corpuscular Hemoglobin Concent 32.4 g/dl (32-36) Platelet Count 227 K/uL (130-400) Mean Platelet Volume 9.0 fL (7.4-10.4) Neutrophils (%) (Auto) 76.8 % Lymphocytes (%) (Auto) 13.2 % Monocytes (%) (Auto) 7.6 % Eosinophils (%) (Auto) 1.0 % Basophils (%) (Auto) 0.1 % Neutrophils # (Auto) 7.09 K/uL (1.4-6.5) H Lymphocytes # (Auto) 1.22 K/uL (1.2-3.4) Monocytes # (Auto) 0.70 K/uL (0.11-0.59) H Eosinophils # (Auto) 0.09 K/uL (0-0.5) Basophils # (Auto) 0.01 K/uL (0-0.2) Procalcitonin 0.51 ng/ml (0-0.5) H Micro Results Date/Time Source Procedure Growth Status 12/29/16 15:26 Blood Blood Culture Pending Received 12/29/16 15:26 Blood Blood Culture Pending Received 12/21/16 19:47 Stool Shiga Toxin Test - Final Complete 12/21/16 19:47 Stool Stool Culture - Final NO SALMONELLA ISOLATED,... Complete 12/21/16 19:47 Stool C.difficile Toxin B Gene (PCR) - Final No C. difficile toxin B gene detected Complete 12/29/16 13:50 Sputum Trach. Tube Suction Gram Stain Pending Ordered 12/29/16 13:50 Sputum Trach. Tube Suction Sputum Culture Pending Ordered Risk Factors for Resistance * Resident in a shelter or extended-care facility * Hospitalization for 48 hours or more within the past 90 days * History of infection with a multidrug-resistant organism Assessment & Plan Assessment 71 year old female receiving Vancomycin + Primaxin for treatment of acute on chronic vent dependent respiratory failure & Multifocal pneumonia Day # 5/10 of antimicrobial therapy Initially, ID recommended Abx x 5 days, but pt decompensating today (12/30/16) per hospitalist. Will treat for a total of 10 days with current Abx. Plan Vancomycin IV * Trough level of 20.6 mcg/mL on 12/28/16 was slightly supratherapeutic. * Dose was decreased from 1,000mg to 750mg IV Q24hrs * Goal trough level for pulmonary source : 15 to 20 mcg/mL * Trough ordered for: 01/01/17 @ 2200 Pharmacy will continue to follow and will adjust dose/frequency as necessary. Thank you.
[2016-12-30] MEDS: LANSOPRAZOLE SOLUTAB 30 MG PEG SCH (11:19)
[2016-12-30] MEDS: LIFITEGRAST OP SCH ×2 (11:20→22:03)
[2016-12-30] MEDS ORDERED: OPTIRAY 320 IV PRN (11:45)
[2016-12-30] MEDS ORDERED: SODIUM CHLORIDE 1 GM TAB PO ONE (11:46)
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
--- NOTE | 2016-12-30 12:28 | DIAGNOSTIC IMAGING REPORT ---
ABD/PELVIS IV CONTRAST ONLY CLINICAL HISTORY: 71 years-old Female presenting with ileus, r/o bowel perforation. TECHNIQUE: Multidetector CT of the abdomen and pelvis was performed after the administration of intravenous contrast. IV contrast: Optiray 320. A dose lowering technique was used consistent with the principles of ALARA (as low as reasonably achievable). COMPARISON: 06/19/2016. CT DOSE (mGy.cm): The estimated cumulative dose is 1249.47 mGy.cm. FINDINGS: Systems Program Manager topogram: Unremarkable. Lung bases: Improved aeration of the left lower lobe, although architectural distortion in significant dependent consolidation persist. Patchy groundglass opacities in the bilateral lungs, some of which appear to have a central solid component and peripheral halo of groundglass. Peribronchovascular consolidation in the right lower lobe slightly increased from prior. Chronic pleural thickening on the right. Multichamber enlargement of the heart. A tip of a central venous catheter is noted at the superior cavoatrial junction. Coronary artery calcification. No pericardial or pleural effusion. Liver: Liver appears enlarged similar to prior exam. Heterogeneity of enhancement to suggest underlying steatosis or edema. No focal lesion. Hepatic veins are not opacified, which may be due to the phase of contrast. Portal veins patent. Hepatic artery patent. Biliary: No intrahepatic or extrahepatic biliary ductal dilatation. Normal gallbladder. Pancreas: Moderate parenchymal atrophy. Spleen: Small subcapsular region of hypoattenuation at the medial superior aspect, possibly hemangioma, lymphangioma, or pseudocyst. Adrenal glands: Normal. Kidneys and ureters: Renal sinus lipomatosis with bilateral cortical thinning. Urothelial thickening. Normal excretion of contrast from the bilateral kidneys. No hydronephrosis. Bladder: Decompressed with a Staples catheter. Pelvic organs: Uterus grossly normal. Ovaries poorly visualized. Bowel: Limited diverticulosis of the sigmoid colon. Bowel is nondilated. No bowel obstruction. Gastrostomy tube in place. Peritoneal cavity: Retroperitoneal lipomatosis in the perinephric spaces. Associated mass effect. Small peritoneal free fluid in the lower quadrants as well as perihepatic region. No free intraperitoneal gas suggest perforation. Vasculature: Atherosclerosis of the normal caliber abdominal aorta. IVC patent. Lymph nodes: No enlarged lymph nodes in the abdomen or pelvis. Abdominal wall: Infiltration of the lower extremities, more prominent on the left. Infiltration of the midline intra-abdominal wall with mild skin thickening. Mild anasarca. Musculoskeletal: Degenerative changes of the spine. Osteopenia. Vertebral body height loss of L2 unchanged from prior exam consistent with chronic compression fracture. IMPRESSION: 1. No evidence of ileus or bowel perforation. 2. Heterogeneity of enhancement of the liver suggests underlying steatosis or edema. Correlate with liver function tests. Hepatomegaly. 3. Renal sinus lipomatosis with cortical atrophy could suggest chronic inflammation, which would be compatible with apparent urothelial thickening. Correlate with urinalysis to exclude acute infection. 4. Small ascites. 5. Osteopenia with chronic L2 compression fracture. 6. Acute on chronic opacities in the bilateral lung bases. Peribronchovascular consolidation in the right lower lobe could suggest organizing pneumonia, however, given the presence of worsened patchy groundglass opacities bilaterally, acute atypical infection may also be present. No interlobular septal thickening to suggest pulmonary edema. Electronically signed by: Nikolay Lo M.D. 12/30/2016 12:27 PM Dictated Date/Time: 12/30/2016 12:12 PM
--- NOTE | 2016-12-30 14:49 | Pharmacy Progress Note ---
Glycemic Control Progress Note Date of Service Dec 30, 2016. Scope Glycemic Pharmacist consulted for glycemic control to write orders per [facility] inpatient glycemic control protocol. Objective Accuchecks BSG (last 24hrs): Test 12/29/16 15:26 12/29/16 15:56 12/29/16 17:41 12/29/16 19:19 Random Glucose 147 mg/dl (70-99) Bedside Glucose 148 mg/dl (70-90) 213 mg/dl (70-90) 235 mg/dl (70-90) Test 12/29/16 20:48 12/30/16 05:21 12/30/16 08:15 12/30/16 10:13 Bedside Glucose 195 mg/dl (70-90) 154 mg/dl (70-90) 85 mg/dl (70-90) Random Glucose 93 mg/dl (70-99) Test 12/30/16 11:40 Bedside Glucose 84 mg/dl (70-90) HbA1c: Test 12/21/16 05:19 Hemoglobin A1c 8.7 % (4.5-5.6) H Recent Pertinent Medications The patient is currently receiving: * Basal insulin * Lantus 50 units SQ HS - hold for BSG < 110mg/dl * Prandial insulin * Novolog 17 units SQ with each tube feed - HOLD when tube feeds held * Correctional insulin * Acchchecks ACHS * Goal range 110-140mg/dl * CF: 12mg/dl/unit Assessment & Plan ASSESSMENT: * See progress note from 12/22/16 for more background info, in short: * Pt receiving IV insulin infusion and SQ basal bolus insulin regimen for hyperglycemia secondary to baseline DM (outpatient regimen on hold), and infection, previously fungal UTI completed amphotericin B bladder irrigation treatment and IV Imipenem and Vancomycin for HCAP. * Pt was transitioned off of insulin drip yesterday with good glycemic control, a Lantus load of 50 units and a HS dose of 50 units. Will continue previous order, no changes needed at this time. PLAN FOR INPATIENT GLYCEMIC CONTROL: * Basal insulin * Lantus 50 units SQ HS - hold for BSG < 110mg/dl * Prandial insulin * Novolog 17 units SQ with each tube feed - HOLD when tube feeds held * Correctional insulin * Acchchecks ACHS * Goal range 110-140mg/dl * CF: 12mg/dl/unit * Please note that the plan above was derived based on current level of insulin resistance and hospital stress. These recommendations are appropriate for inpatient admission only. Plan of care upon discharge will need to be reassessed to avoid potential outpatient hypo/hyperglycemia. Thank you.
[2016-12-30] MEDS: DEXTROSE 50% 50 ML SYR IV PRN ×2 (16:25→20:22)
--- NOTE | 2016-12-30 18:25 | EEG Procedure Note ---
EEG Procedure Note Date of Service Dec 30, 2016. Start / End Times Start Time: 1322 End Time: [address] Vasques History 71 year old with acute encephalopathy and seizure disorder. Suspect subclinical seizures Home Medication List Scheduled Albuterol Hfa (Ventolin Hfa), 2 PUFFS INH BID Allopurinol (Allopurinol), 100 MG PEG DAILY Amlodipine (Norvasc), 3.75 MG PEG DAILY Buspirone Hcl (Buspirone Hcl), 7.5 MG PEG BID Cholecalciferol (Vitamin D3), 5,000 UNITS PEG DAILY Clopidogrel (Plavix), 75 MG PEG DAILY Dipyridamole/Aspirin (Aggrenox 25-200 mg), 1 CAP PEG BID Ertapenem Sodium (Invanz), 1 GM IV DAILY Escitalopram Oxalate (Lexapro), 20 MG PEG DAILY Fluconazole (Diflucan), 100 MG PEG DAILY Gabapentin (Gabapentin), 2 ML PEG QAM Gabapentin (Gabapentin), 4 ML PEG DAILY Gabapentin (Gabapentin), 12 ML PEG QPM Gentamicin Sulfate (Topical) (Gentamicin Sulfate), 80 MG FLUSH Q SATURDAY Insulin Glargine (Lantus), 13 UNIT SC QHS Lamotrigine (Lamictal), 200 MG PEG QPM Lamotrigine (Lamictal), 200 MG PEG QD@08 Levetiracetam (Keppra), 500 MG PEG QD@2100 Levetiractam (Keppra), 250 MG PEG QD@08 Levofloxacin (Levaquin), 250 MG PEG DAILY Lifitegrast (Xiidra), 1 DROP OP BID Nutritional Supplements (Nutren 2.0), 1 CAN PEG TID Pentosan Polysulfate Sodium (Elmiron), 100 MG PEG BID Probiotic Product (Probiotic), 1 TAB PEG TID Scheduled PRN Acetaminophen (Tylenol), 1,000 MG PEG Q6 PRN for Pain Bisacodyl (Bisac-Evac), 1 SUPP NM HS PRN for Constipation Lidocaine (Lidocaine), 2 PATCH TOP DAILY PRN for Pain Lorazepam (Ativan), 0.5 MG PO QD PRN for Anxiety Melatonin (Kp Melatonin), 1 MG PO HS PRN for Insomnia Methylnaltrexone Merritt (Relistor), 1 DOSE SC Q2D PRN for . Ondansetron Hcl (Zofran), 4 MG PEG AC PRN for Nausea Phenazopyridine HCl (Pyridium), 200 MG PEG BID PRN for BLADDER Polyethylene Glycol 3350 (Miralax), 17 GM PEG DAILY PRN for Constipation Polyethylene Glycol-Propylene (Systane), 1 DROPS OP QID PRN for DRYNESS Quetiapine Fumarate (Quetiapine Fumarate), 12.5 MG PO HS PRN for Sleep Miscellaneous Medications Insulin Aspart (Novolog) Lifitegrast (Xiidra) Inpatient Medication List Current Inpatient Medications Medications (Trade) Dose Ordered Sig/Tasha Route Start Time Stop Time Status Last Admin Dose Admin Allopurinol (Zyloprim Tab) 100 mg DAILY PEG 12/21/16 09:00 01/20/17 08:59 12/30/16 10:20 100 MG Amlodipine Besylate (Norvasc Tab) 3.75 mg DAILY PEG 12/21/16 09:00 01/20/17 08:59 12/28/16 08:36 3.75 MG Clopidogrel Bisulfate (plAVix TAB) 75 mg DAILY PEG 12/21/16 09:00 01/20/17 08:59 12/30/16 10:23 75 MG Dipyridamole/ Aspirin (Aggrenox 200MG/ 25MG Cap) 1 cap BID PO 12/20/16 21:00 01/19/17 20:59 12/30/16 10:21 1 CAP Escitalopram Oxalate (Lexapro Tab) 20 mg DAILY PEG 12/21/16 09:00 01/20/17 08:59 12/30/16 10:23 20 MG Lidocaine (Lidoderm Patch 5%) 2 patch DAILY PRN TD 12/20/16 20:30 01/19/17 20:29 Ondansetron HCl (Zofran Tab) 4 mg AC PRN PO 12/20/16 20:30 01/19/17 20:29 Phenazopyridine HCl (Pyridium Tab) 200 mg BID PRN PO 12/20/16 20:30 01/19/17 20:29 12/21/16 08:24 200 MG Buspirone HCl (Buspar Tab) 7.5 mg BID PEG 12/20/16 21:00 01/19/17 20:59 12/30/16 10:22 7.5 MG Cholecalciferol (Vitamin D Tab) 5,000 inter.unit DAILY PEG 12/21/16 09:00 01/20/17 08:59 12/30/16 10:21 5,000 INTER.UNIT Methylnaltrexone Merritt (Relistor Inj) 12 mg Q2D PRN SQ 12/20/16 22:30 01/19/17 22:29 Pentosan Polysulfate Sodium (Elmiron) 100 mg BID PO 12/20/16 21:00 01/19/17 20:59 12/30/16 10:21 100 MG Polyethylene (Miralax Powder Packet) 17 gm DAILY PRN PEG 12/20/16 20:30 01/19/17 20:29 Artificial Tears (Artificial Tears) 1 drops QID PRN OP 12/20/16 20:30 01/19/17 20:29 Lactobacillus Acidophilus (Floranex Tab) 1 tab TID PEG 12/20/16 21:00 01/19/17 20:59 12/30/16 12:57 1 TAB Gabapentin (Neurontin) 600 mg DAILY@2300 PEG 12/20/16 23:00 01/19/17 22:59 12/29/16 22:08 600 MG Gabapentin (Neurontin) 200 mg DAILY@1600 PEG 12/21/16 16:00 01/20/17 15:59 12/30/16 17:34 200 MG Gabapentin (Neurontin) 100 mg QAM PEG 12/21/16 09:00 01/20/17 08:59 12/30/16 10:25 100 MG Glucose (Glucose 40% Gel) 15-30 GRAMS 15 GRAMS... UD PRN PO 12/20/16 22:30 01/19/17 22:29 Glucose (Glucose Chew Tab) 4-8 Tablets 4 Tabl... UD PRN PO 12/20/16 22:30 01/19/17 22:29 Dextrose (Dextrose 50% 50ML Syringe) 25-50ML OF 50% DW IV FOR... UD PRN IV 12/20/16 22:30 01/19/17 22:29 12/30/16 16:25 25 ML Glucagon (Glucagon Inj) 1 mg UD PRN SQ 12/20/16 22:30 01/19/17 22:29 Acetaminophen (Tylenol Soln) 1,000 mg Q6H PRN PO 12/21/16 09:00 01/20/17 08:59 12/29/16 20:56 1,000 MG Heparin Sodium (Porcine) (Heparin 100 Unit/ml 5ml Flush) 5 ml PRN PRN IV 12/22/16 01:00 01/21/17 00:59 Miscellaneous Information (Consult Glycemic Management Pharmacy) 1 ea UD PRN N/A 12/22/16 02:30 01/21/17 02:29 Non-Formulary Medication 1 ea TID@1000,1600,2100 PEG 12/24/16 10:00 01/23/17 09:59 12/29/16 20:55 1 EA Lifitegrast (Xiidra 5% Oph Soln) 1 drop BID@1100,2300 OP 12/24/16 11:00 01/23/17 10:59 12/30/16 11:20 1 DROP Ibuprofen (Motrin Susp) 400 mg Q4H PRN GT 12/24/16 17:15 01/23/17 17:14 12/29/16 15:52 400 MG Acetaminophen (Tylenol Soln) 650 mg Q6H PRN PO 12/26/16 11:15 01/25/17 11:14 12/28/16 15:06 650 MG Imipenem/ Cilastatin Sodium 250 mg/Dextrose 110 ml @ 100 mls/hr Q6H IV 12/26/16 20:00 01/04/17 23:59 12/30/16 17:34 100 MLS/HR Vancomycin HCl (Consult) 1 ea UD PRN N/A 12/26/16 21:00 12/30/16 23:59 Dornase Biju (Pulmozyme Inhalation Soln 2.5ml Amp) 2.5 ml BIDR INH 12/27/16 20:30 01/26/17 20:29 12/29/16 07:03 2.5 ML Insulin Aspart (novoLOG ASPART) 17 units TID@1000,1600,2100 SC 12/28/16 16:00 01/27/17 15:59 12/29/16 22:06 17 UNITS Insulin Glargine (Lantus Solostar Pen) 50 units HS SC 12/28/16 21:00 01/27/17 20:59 12/29/16 22:06 50 UNITS Ondansetron HCl (Zofran Inj) 4 mg Q6H PRN IV 12/28/16 20:15 01/27/17 20:14 Vancomycin HCl 750 mg/Sodium Chloride 265 ml @ 125 mls/hr DAILY@2200 IV 12/29/16 22:00 01/04/17 23:59 12/29/16 22:02 125 MLS/HR Furosemide (Lasix Tab) 20 mg QAM PO 12/30/16 09:00 01/29/17 08:59 12/30/16 11:09 20 MG Insulin Aspart (novoLOG ASPART) SLIDING SCALE G... DAILY@0600,1000,1600,2100 SC 12/29/16 21:00 01/28/17 20:59 12/30/16 05:24 2 UNITS Heparin Sodium (Porcine) (Heparin Sq 5000 Unit/0.5ml) 5,000 unit Q8 SQ 12/29/16 22:00 01/28/17 21:59 12/30/16 13:03 5,000 UNIT Ioversol (Optiray 320) 125 ml UD PRN IV 12/29/16 14:15 01/02/17 14:14 Albuterol/ Ipratropium (Duoneb) 3 ml QIDR INH 12/29/16 16:00 01/28/17 15:59 12/30/16 15:16 3 ML Bisacodyl (Dulcolax Supp) 10 mg DAILY PRN NM 12/30/16 08:00 01/29/17 07:59 Lansoprazole (Prevacid Solutab) 30 mg DAILY PEG 12/30/16 11:30 01/29/17 11:29 12/30/16 11:19 30 MG Ioversol (Optiray 320) 100 ml UD PRN IV 12/30/16 11:45 01/03/17 11:44 Sodium Chloride (Sodium Chloride Tab) 1 gm BID PO 12/30/16 21:00 01/29/17 20:59 Lamotrigine (Lamictal Tab) 200 mg QPM PEG 12/30/16 21:00 01/19/17 20:59 Lamotrigine (Lamictal Tab) 200 mg QD@08 PEG 12/31/16 08:00 01/20/17 07:59 Lamotrigine (Lamictal Tab) 25 mg QPM PEG 12/30/16 21:00 01/29/17 20:59 Lamotrigine (Lamictal Tab) 25 mg QD@08 PEG 12/31/16 08:00 01/30/17 07:59 Description This is a 21 electrode EEG with a single channel dedicated to limited EKG. The electrodes were placed in accordance with the International 10-20 system. Interpretation The predominate background activity consists of an irregular 6 Hz rhythm (5-7 Hz ) of up to 100microvolts in amplitude seen over all head regions. This irregular activity had no attenuation with eye opening or alerting procedures, although there were occasional periods of low amplitude activity in all head regions from time to time lasted up to 6 seconds in duration. There were no clinical accompaniments and no potentially epileptogenic activity seen.. There were no focal abnormalities either. Photic stimulation and hyperventilation were not performed on this bedside routine EEG. Overall this study was abnormal and showed mild to moderate generalized slowing without focal abnormalities or potentially epileptogenic activity seen. Clinical Correlation Abnormalities such as this generally correlate with a mild to moderate encephalopathy. A seizure cannot be excluded and clinical correlation is required
[2016-12-30 19:38] LABS: BUN/CREATININE RATIO 52.8 (10-20); CALCIUM 8.8 mg/dl (8.5-10.1); CREATININE 0.85 mg/dl (0.60-1.20); POTASSIUM 3.8 mmol/L (3.5-5.1)
[2016-12-30] MEDS: SODIUM CHLORIDE 1 GM TAB PO SCH (20:37)
[2016-12-30] MEDS ORDERED: INSULIN GLARGINE SOLOSTAR 100 UNITS/ML 3 ML PEN SC SCH (21:00)
[2016-12-30] MEDS: VANCOMYCIN INJ 750 MG in SODIUM CHLORIDE 0.9% 250ML 250 ML IV SCH (22:02)
[2016-12-31] VITALS (11 sets, daily range): BP systolic 104–125; BP diastolic 46–82; PULSE 57–91; TEMP 35.4–36.7; O2SAT 89–100
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
[2016-12-31] MEDS: ALBUT/IPRATROP 3MG/0.5MG NEB 3 ML VIAL INH SCH ×5 (01:43→19:18)
[2016-12-31] MEDS ORDERED: NURSING VERBAL MED ORDER ONE (01:45)
[2016-12-31] MEDS ORDERED: FUROSEMIDE INJ 20 MG in SYRINGE 0 ML IV STA (01:48)
[2016-12-31 04:37] LABS: MEAN CELL VOLUME 88.1 fL (80-100); MEAN CORPUSCULAR HEMOGLOBIN 29.1 pg (25-34); MEAN PLATELET VOLUME 9.4 fL (7.4-10.4); PLATELET COUNT 207 K/uL (130-400); RED BLOOD COUNT 2.61 M/uL (4.2-5.4); WHITE BLOOD COUNT 8.86 K/uL (4.8-10.8)
[2016-12-31 05:00] LABS: BUN/CREATININE RATIO 55.3 (10-20); CALCIUM 8.4 mg/dl (8.5-10.1); CREATININE 0.86 mg/dl (0.60-1.20); POTASSIUM 3.5 mmol/L (3.5-5.1)
[2016-12-31] MEDS: IMIPENEM-CILASTATIN 250 MG in DEXTROSE 5% 100ML 100 ML IV SCH ×4 (05:21→23:15)
[2016-12-31] MEDS: INSULIN ASPART 100 UNITS/ML 3 ML PEN SC SCH ×7 (05:22→20:44)
[2016-12-31] MEDS: HEPARIN SOD 5000 UNIT/0.5 ML CARP SQ SCH ×3 (05:24→22:23)
[2016-12-31] MEDS: DORNASE ALFA (2500U) 2.5MG/2.5ML INH SCH ×2 (07:01→19:18)
[2016-12-31] MEDS ORDERED: PANTOprazole SOD 40 MG TAB PEG SCH (09:00)
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
[2016-12-31] MEDS: NUTREN PEG SCH ×3 (09:57→21:00)
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
[2016-12-31] MEDS: ESCITALOPRAM OXALATE 20 MG TAB PEG SCH (10:01)
[2016-12-31] MEDS: FUROSEMIDE 20 MG TAB PO SCH (10:01)
[2016-12-31] MEDS: ALLOPURINOL 100 MG TAB PEG SCH (10:01)
[2016-12-31] MEDS: DIPYRIDAMOLE/ASPIRIN CAP PO SCH ×2 (10:01→20:38)
[2016-12-31] MEDS: CLOPIDOGREL BISULFATE 75 MG TAB PEG SCH (10:01)
[2016-12-31] MEDS: AMLODIPINE BESYLATE 5 MG TAB PEG SCH (10:02)
[2016-12-31] MEDS: LACTOBACILLUS ACIDOPHILUS (FLORANEX) TAB PEG SCH ×3 (10:03→20:37)
[2016-12-31] MEDS: SODIUM CHLORIDE 1 GM TAB PO SCH ×2 (10:05→20:35)
[2016-12-31] MEDS: PENTOSAN POLYSULFATE SODIUM 100 MG CAP PO SCH ×2 (10:05→20:39)
[2016-12-31] MEDS: LANSOPRAZOLE SOLUTAB 30 MG PEG SCH (10:07)
[2016-12-31] MEDS: CHOLECALCIFEROL 1000 INTER.UNIT TAB PEG SCH (10:07)
[2016-12-31] MEDS: LIFITEGRAST OP SCH ×2 (10:08→23:00)
[2016-12-31] MEDS: GABAPENTIN 250 MG/5 ML 470 ML BTL PEG SCH ×3 (10:09→23:15)
--- NOTE | 2016-12-31 11:14 | Pharmacy Progress Note ---
Glycemic Control Progress Note Date of Service Dec 31, 2016. Scope Glycemic Pharmacist consulted for glycemic control to write orders per [facility] inpatient glycemic control protocol. Objective Accuchecks BSG (last 24hrs): Test 12/30/16 11:40 12/30/16 16:16 12/30/16 17:02 12/30/16 19:05 Bedside Glucose 84 mg/dl (70-90) 63 mg/dl (70-90) 94 mg/dl (70-90) Random Glucose 69 mg/dl (70-99) Test 12/30/16 20:13 12/30/16 20:44 12/31/16 04:21 12/31/16 05:21 Bedside Glucose 66 mg/dl (70-90) 164 mg/dl (70-90) 92 mg/dl (70-90) Random Glucose 74 mg/dl (70-99) HbA1c: Test 12/21/16 05:19 Hemoglobin A1c 8.7 % (4.5-5.6) H Recent Pertinent Medications The patient is currently receiving: * Basal insulin: Lantus 40 units every 24 hours - dosed at bedtime * Correctional Insulin: Novolog Correction per scale 4 x daily (0600, 1000, 1600, 2100) Goal Range: Low 1140 mg/dL - High 140 mg/dL Correction Factor: 12 mg/dL/unit * Prandial insulin: 10 units Novolog w/ each Nutren 2.0 feeding (267mL contains ~57.6gm CHO) TID * Oral Agents: none currently Outpatient Anti-Diabetic Meds Lantus 40 units SQ Q PM Assessment & Plan ASSESSMENT: 12/31/16 * Patient has experience 3 episodes of hypoglycemia over the last 24 hrs, likely due to excessive basal insulin in the setting of decreased enteral CHO intake * Fasting AM BSG 74-92 this AM w/ 40 units of Lantus on board. She had become hypoglycemic x 2 yesterday w/ 50 units of Lantus on board after missing 2 of her Nutren feeds earlier in the day. Today she dropped her BSG into the 50's prior to her 1000 Nutren feed. Will continue to titrate the basal insulin dose down. Will utilize a dosing scale on this evening's Lantus order to lessen hypoglycemia risks. * Given repeated hypoglycemic episodes over the last 24 hrs will also reduce the prandial insulin dose as there is excessive basal insulin on board. PLAN FOR INPATIENT GLYCEMIC CONTROL: * Decreasing Lantus dose this evening: if BSG less than 100 give 0 units; BSG 110-139 give 20 units; BSG 140 or greater give 30 units * Changing correction factor to 15 mg/dl/unit * Changing prandial dose to 8 units SQ w/ each Nutren bolus feed * Continuing goal range of Low 110 mg/dL - High 140 mg/dL * Please note that the plan above was derived based on current level of insulin resistance and hospital stress. These recommendations are appropriate for inpatient admission only. Plan of care upon discharge will need to be reassessed to avoid potential outpatient hypo/hyperglycemia. Thank you.
--- NOTE | 2016-12-31 11:32 | Hematology/Oncology Prog Note ---
Hematology/Onc Progress Note Date of Service Dec 31, 2016. Diagnoses Anemia of chronic disease Medications Medications Administered Medications (Trade) Dose Ordered Sig/Tasha Route Start Time Stop Time Status Last Admin Dose Admin Amphotericin B 12.5 mg/Sterile Water 250 ml @ 0 mls/hr DAILY@00,06,12,18 IR 12/21/16 00:00 12/28/16 02:00 DC 12/27/16 23:40 500 MLS/HR Albuterol (Ventolin Hfa Inhaler) 2 puffs BID INH 12/20/16 21:00 12/29/16 14:19 DC 12/29/16 09:37 2 PUFFS Allopurinol (Zyloprim Tab) 100 mg DAILY PEG 12/21/16 09:00 01/20/17 08:59 12/31/16 10:01 100 MG Amlodipine Besylate (Norvasc Tab) 3.75 mg DAILY PEG 12/21/16 09:00 01/20/17 08:59 12/31/16 10:02 3.75 MG Clopidogrel Bisulfate (plAVix TAB) 75 mg DAILY PEG 12/21/16 09:00 01/20/17 08:59 12/31/16 10:01 75 MG Dipyridamole/ Aspirin (Aggrenox 200MG/ 25MG Cap) 1 cap BID PO 12/20/16 21:00 01/19/17 20:59 12/31/16 10:01 1 CAP Escitalopram Oxalate (Lexapro Tab) 20 mg DAILY PEG 12/21/16 09:00 01/20/17 08:59 12/31/16 10:01 20 MG Fluconazole (Diflucan Susp) 100 mg DAILY PEG 12/21/16 09:00 12/22/16 13:57 DC 12/22/16 10:08 100 MG Lamotrigine (Lamictal Tab) 200 mg QD@08 PEG 12/21/16 08:00 12/30/16 12:16 DC 12/30/16 10:27 200 MG Lamotrigine (Lamictal Tab) 200 mg QPM PEG 12/20/16 21:00 12/30/16 12:16 DC 12/29/16 20:58 200 MG Levetiracetam (Keppra Soln) 500 mg QD@2100 PO 12/20/16 21:00 12/27/16 00:11 DC 12/23/16 20:18 500 MG Levetiracetam (Keppra Soln) 250 mg QD@08 PO 12/21/16 08:00 12/27/16 00:11 DC 12/24/16 09:45 250 MG Phenazopyridine HCl (Pyridium Tab) 200 mg BID PRN PO 12/20/16 20:30 01/19/17 20:29 12/21/16 08:24 200 MG Quetiapine Fumarate (seroQUEL TAB) 12.5 mg HS PRN PO 12/20/16 20:30 12/26/16 14:34 DC 12/25/16 03:01 12.5 MG Buspirone HCl (Buspar Tab) 7.5 mg BID PEG 12/20/16 21:00 01/19/17 20:59 12/31/16 10:03 7.5 MG Cholecalciferol (Vitamin D Tab) 5,000 inter.unit DAILY PEG 12/21/16 09:00 01/20/17 08:59 12/31/16 10:07 5,000 INTER.UNIT Miscellaneous Information (Order Awaiting Action) 1 ea QS N/A 12/21/16 00:00 12/24/16 09:47 DC 12/22/16 23:50 1 EA Pentosan Polysulfate Sodium (Elmiron) 100 mg BID PO 12/20/16 21:00 01/19/17 20:59 12/31/16 10:05 100 MG Lactobacillus Acidophilus (Floranex Tab) 1 tab TID PEG 12/20/16 21:00 01/19/17 20:59 12/31/16 10:03 1 TAB Gabapentin (Neurontin) 600 mg DAILY@2300 PEG 12/20/16 23:00 01/19/17 22:59 12/30/16 22:02 600 MG Insulin Glargine (Lantus Solostar Pen) 13 units HS SC 12/20/16 20:30 12/21/16 14:07 DC 12/21/16 00:15 13 UNITS Miscellaneous Information (Order Awaiting Action) 1 ea QS N/A 12/21/16 08:00 12/24/16 07:54 DC 12/24/16 00:41 1 EA Insulin Aspart (novoLOG ASPART) SLIDING SCALE G... ACHS SC 12/20/16 21:00 12/22/16 14:43 DC 12/22/16 12:19 3 UNITS Gabapentin (Neurontin) 200 mg DAILY@1600 PEG 12/21/16 16:00 01/20/17 15:59 12/30/16 17:34 200 MG Gabapentin (Neurontin) 100 mg QAM PEG 12/21/16 09:00 01/20/17 08:59 12/31/16 10:09 100 MG Dextrose (Dextrose 50% 50ML Syringe) 25-50ML OF 50% DW IV FOR... UD PRN IV 12/20/16 22:30 01/19/17 22:29 12/30/16 20:22 25 ML Heparin Sodium (Porcine) (Heparin 10 Unit/ ml 5 ml Flush) 5 ml STK-MED ONCE .ROUTE 12/21/16 08:48 12/21/16 08:49 DC 12/21/16 08:48 5 ML Acetaminophen (Tylenol Soln) 1,000 mg Q6H PRN PO 12/21/16 09:00 01/20/17 08:59 12/29/16 20:56 1,000 MG Insulin Glargine (Lantus Solostar Pen) 20 units HS SC 12/21/16 21:00 12/22/16 14:34 DC 12/21/16 20:12 20 UNITS Enteral Nutritional Formula (Novasource Renal) 1,000 ml UD PRN PEG 12/21/16 15:15 12/22/16 14:26 DC 12/22/16 10:59 1,000 ML Insulin Human Regular 10 units/ Syringe 10 ml @ 30 mls/min TODAY@0230 IV 12/22/16 02:30 12/22/16 02:31 DC 12/22/16 03:04 30 MLS/MIN Insulin Aspart (novoLOG ASPART) SLIDING SCALE G... NOW STAT SC 12/22/16 02:36 12/22/16 02:37 DC 12/22/16 03:05 7 UNITS Acetaminophen (Tylenol Soln) 325 mg STK-MED ONCE .ROUTE 12/22/16 12:57 12/22/16 12:58 DC 12/22/16 13:00 325 MG Fluconazole (Diflucan Susp) 100 mg DAILY PEG 12/23/16 09:00 12/30/16 14:27 DC 12/30/16 10:23 100 MG Enteral Nutritional Formula (Novasource Renal) 250 ml TID@1000,1600,2100 PEG 12/22/16 16:00 12/23/16 17:25 DC 12/23/16 15:44 250 ML Insulin Human Regular (novoLIN-R) 8 units TID@0930,1530,2030 [place] 12/22/16 15:30 12/23/16 13:44 DC 12/23/16 09:36 8 UNITS Insulin Human Regular (novoLIN-R) SLIDING SCALE TID@0930,1530,2030 [place] 12/22/16 15:30 12/26/16 13:51 DC 12/26/16 09:39 5 UNITS Insulin Glargine (Lantus Solostar Pen) 30 units HS [place] 12/22/16 21:00 12/23/16 13:45 DC 12/22/16 20:20 30 UNITS Dornase Biju (Pulmozyme Inhalation Soln 2.5ml Amp) 2.5 ml BIDR INH 12/23/16 13:45 12/25/16 21:00 DC 12/25/16 19:16 2.5 ML Insulin Human Regular (novoLIN-R) 9 units TID@0930,1530,2030 [place] 12/23/16 15:30 12/25/16 07:57 DC 12/24/16 21:05 9 UNITS Insulin Glargine (Lantus Solostar Pen) 35 units HS [place] 12/23/16 21:00 12/25/16 07:58 DC 12/24/16 21:05 35 UNITS Non-Formulary Medication 1 ea TID@1000,1600,2100 PEG 12/24/16 10:00 01/23/17 09:59 12/31/16 09:57 1 EA Lifitegrast (Xiidra 5% Oph Soln) 1 drop BID@1100,2300 OP 12/24/16 11:00 01/23/17 10:59 12/31/16 10:08 1 DROP Famotidine 20 mg/ Syringe 10 ml @ 5 mls/min TODAY@1645 IV 12/24/16 16:45 12/24/16 16:46 DC 12/24/16 16:57 5 MLS/MIN Ibuprofen (Motrin Susp) 400 mg Q4H PRN GT 12/24/16 17:15 01/23/17 17:14 12/29/16 15:52 400 MG Insulin Human Regular (novoLIN-R) 11 units TID@0930,1530,2030 [place] 12/25/16 09:30 12/26/16 08:23 DC 12/25/16 20:56 11 UNITS Insulin Glargine (Lantus Solostar Pen) 40 units HS SC 12/25/16 21:00 12/26/16 13:53 DC 12/25/16 20:57 40 UNITS Potassium Chloride 20 meq/ Prmx 100 ml @ 50 mls/hr Q2H IV 12/25/16 12:00 12/25/16 15:59 DC 12/25/16 15:39 50 MLS/HR Insulin Human Regular (novoLIN-R) 15 units TID@0930,1530,2030 [place] 12/26/16 09:30 12/26/16 13:52 DC 12/26/16 09:40 15 UNITS Acetaminophen (Tylenol Soln) 650 mg STK-MED ONCE .ROUTE 12/26/16 09:57 12/26/16 09:58 DC 12/26/16 10:08 650 MG Acetaminophen (Tylenol Soln) 650 mg Q6H PRN PO 12/26/16 11:15 01/25/17 11:14 12/28/16 15:06 650 MG Insulin Human Regular 7 unit/ Syringe 7 ml @ 1 mls/min TODAY@1400 IV 12/26/16 14:00 12/26/16 14:06 DC 12/26/16 13:56 1 MLS/MIN Insulin Aspart (novoLOG ASPART) SLIDING SCALE TID@0930,1530,2030 [place] 12/26/16 15:30 12/27/16 08:36 DC 12/26/16 20:46 9 UNITS Insulin Aspart (novoLOG ASPART) 15 units TID@0930,1530,2030 [place] 12/26/16 15:30 12/27/16 08:36 DC 12/26/16 20:47 15 UNITS Insulin Glargine (Lantus Solostar Pen) 45 units HS [place] 12/26/16 21:00 12/28/16 13:20 DC 12/27/16 21:44 45 UNITS Imipenem/ Cilastatin Sodium 250 mg/Dextrose 110 ml @ 100 mls/hr Q6H IV 12/26/16 20:00 01/04/17 23:59 12/31/16 05:21 100 MLS/HR Vancomycin HCl 1750 mg/Sodium Chloride 535 ml @ 200 mls/hr NOW ONCE IV 12/26/16 19:56 12/26/16 22:36 DC 12/26/16 20:32 200 MLS/HR Vancomycin HCl 1000 mg/Sodium Chloride 270 ml @ 125 mls/hr DAILY@2000 IV 12/27/16 20:00 12/29/16 11:30 DC 12/28/16 21:06 125 MLS/HR Insulin Human Regular 2 unit/ Syringe 2 ml @ 1 mls/min TODAY@0900 IV 12/27/16 09:00 12/27/16 09:01 DC 12/27/16 09:03 1 MLS/MIN Insulin Human Regular 250 units/ Sodium Chloride 252.5 ml @ 0 mls/hr DAILY@1130 IV 12/27/16 09:00 12/29/16 19:00 DC 12/29/16 00:33 2 MLS/HR Dornase Biju (Pulmozyme Inhalation Soln 2.5ml Amp) 2.5 ml BIDR INH 12/27/16 20:30 01/26/17 20:29 12/29/16 07:03 2.5 ML Insulin Aspart (novoLOG ASPART) 17 units TID@1000,1600,2100 SC 12/28/16 16:00 12/30/16 20:52 DC 12/29/16 22:06 17 UNITS Insulin Glargine (Lantus Solostar Pen) 50 units HS SC 12/28/16 21:00 12/30/16 20:51 DC 12/29/16 22:06 50 UNITS Sodium Chloride (Justice Nasal Bowie) 225 sprays STK-MED ONCE .ROUTE 12/28/16 15:22 12/28/16 15:23 DC 12/28/16 15:24 225 SPRAYS Furosemide 20 mg/ Syringe 2 ml @ 4 mls/min TODAY@0200 IV 12/29/16 02:00 12/29/16 02:01 DC 12/29/16 02:24 4 MLS/MIN Ondansetron HCl (Zofran Inj) 4 mg STK-MED ONCE .ROUTE 12/28/16 20:07 12/28/16 20:08 DC 12/28/16 20:10 4 MG Furosemide 20 mg/ Syringe 2 ml @ 4 mls/min NOW ONCE IV 12/28/16 20:15 12/28/16 20:16 DC 12/28/16 20:23 4 MLS/MIN Sodium Chloride 250 ml @ 250 mls/hr Q1H IV 12/29/16 08:30 12/29/16 09:29 DC 12/29/16 09:53 250 MLS/HR Vancomycin HCl 750 mg/Sodium Chloride 265 ml @ 125 mls/hr DAILY@2200 IV 12/29/16 22:00 01/04/17 23:59 12/30/16 22:02 125 MLS/HR Furosemide (Lasix Tab) 20 mg QAM PO 12/30/16 09:00 01/29/17 08:59 12/31/16 10:01 20 MG Insulin Glargine (Lantus Solostar Pen) 50 units TODAY@1300 ONCE SC 12/29/16 13:00 12/29/16 13:01 DC 12/29/16 14:12 50 UNITS Insulin Aspart (novoLOG ASPART) SLIDING SCALE G... DAILY@0600,1000,1600,2100 [place] 12/29/16 21:00 01/28/17 20:59 Future hold 12/30/16 05:24 2 UNITS Heparin Sodium (Porcine) (Heparin Sq 5000 Unit/0.5ml) 5,000 unit Q8 SQ 12/29/16 22:00 01/28/17 21:59 12/31/16 05:24 5,000 UNIT Albuterol/ Ipratropium (Duoneb) 3 ml QIDR INH 12/29/16 16:00 01/28/17 15:59 12/31/16 11:18 3 ML Furosemide 40 mg/ Syringe 4 ml @ 4 mls/min TODAY@1500 IV 12/29/16 15:00 12/29/16 16:00 DC 12/29/16 15:43 4 MLS/MIN Furosemide 40 mg/ Syringe 4 ml @ 4 mls/min TODAY@1030 ONCE IV 12/30/16 10:30 12/30/16 10:31 DC 12/30/16 11:19 4 MLS/MIN Lansoprazole (Prevacid Solutab) 30 mg DAILY PEG 12/30/16 11:30 01/29/17 11:29 12/31/16 10:07 30 MG Sodium Chloride (Sodium Chloride Tab) 1 gm BID PO 12/30/16 21:00 01/29/17 20:59 12/31/16 10:05 1 GM Sodium Chloride (Sodium Chloride Tab) 1 gm 1146 ONCE PO 12/30/16 11:46 12/30/16 12:08 DC 12/30/16 12:57 1 GM Lamotrigine (Lamictal Tab) 200 mg QPM PEG 12/30/16 21:00 01/19/17 20:59 12/30/16 20:37 200 MG Lamotrigine (Lamictal Tab) 200 mg QD@08 PEG 12/31/16 08:00 01/20/17 07:59 12/31/16 10:04 200 MG Lamotrigine (Lamictal Tab) 25 mg QPM PEG 12/30/16 21:00 01/29/17 20:59 12/30/16 20:37 25 MG Lamotrigine (Lamictal Tab) 25 mg QD@08 PEG 12/31/16 08:00 01/30/17 07:59 12/31/16 10:04 25 MG Insulin Glargine (Lantus Solostar Pen) 40 units HS SC 12/30/16 21:00 12/31/16 11:04 DC 12/30/16 20:57 40 UNITS Insulin Aspart (novoLOG ASPART) 10 units TID@1000,1600,2100 [place] 12/30/16 21:00 12/31/16 11:06 DC 12/30/16 20:58 10 UNITS Furosemide 20 mg/ Syringe 2 ml @ 4 mls/min NOW STAT IV 12/31/16 01:48 12/31/16 01:49 DC 12/31/16 02:04 4 MLS/MIN Subjective Patient is primarily somnolent. She does open her eyes with verbal stimulation. Review of Systems: Unable to get an accurate review of systems Vital Signs Vital Signs Past 12 Hours Date Time Temp Pulse Resp B/P (MAP) Pulse Ox O2 Delivery O2 Flow Rate FiO2 12/31/16 11:18 69 21 99 Mechanical Ventilator 12/31/16 10:00 98 Mechanical Ventilator 2.0 12/31/16 10:00 59 18 112/58 (76) 98 Mechanical Ventilator 2.0 12/31/16 07:01 57 21 94 Mechanical Ventilator 12/31/16 04:00 100 Mechanical Ventilator 2.0 12/31/16 04:00 36.4 57 20 125/63 (83) 97 12/31/16 01:43 62 21 89 Mechanical Ventilator 12/31/16 00:00 35.4 62 18 119/82 (94) 95 Room Air 12/30/16 23:59 100 Mechanical Ventilator 2.0 Physical Exam Constitutional: vitals are stable. Eyes: Eyes are ALVERTO EOMI without conjuctival erythema or icterus. ENT: External examination was negative for masses. Neck: Negative for masses or palpable thyromegaly Respiratory: Lung sounds were generally clear bilaterally Cardiovascular: Heart was RRR without significant murmur, gallops aoe rubs Gastrointestinal: No palpable hepatic or splenomegaly. The abdomen was soft and protuberant with normal bowel sounds. Lymphatic system: there was no palpable peripheral lymphadenopathy Musculoskeletal System: The musculoskeletal system seemed concordant with age. Skin: The skin was negative for jaundice.ecchymosis ove an area on abdominal wall. Constitutional: Level of Distress: mild distress, chronically ill Psychiatric: Mental Status: active & alert, confused, agitated Lungs: Auscuitation: pertinent finding (clear to ausculation anteriorly, with mechanical BS) Cardiovascular: Heart Auscultation: RRR Abdomen: Inspection & Palpation: soft, no tenderness, guarding & rebound Musculoskeletal: hypotnicity, pertinent finding (changes consistent with chronic quadriplegia) Extremities: no edema Laboratory Last 24 Hours Test 12/30/16 11:40 12/30/16 12:17 12/30/16 16:16 12/30/16 17:02 Bedside Glucose 84 mg/dl 63 mg/dl 94 mg/dl Lactic Acid Level 1.7 mmol/L Thyroid Stimulating Hormone (TSH) 1.760 uIu/ml Random Cortisol 35.10 mcg/dl Test 12/30/16 19:05 12/30/16 20:13 12/30/16 20:44 12/31/16 04:21 Sodium Level 129 mmol/L 131 mmol/L Potassium Level 3.8 mmol/L 3.5 mmol/L Chloride Level 98 mmol/L 99 mmol/L Carbon Dioxide Level 21 mmol/L 21 mmol/L Anion Gap 10.0 mmol/L 11.0 mmol/L Blood Urea Nitrogen 45 mg/dl 48 mg/dl Creatinine 0.85 mg/dl 0.86 mg/dl Est Creatinine Clear Calc Drug Dose 55.8 ml/min 55.1 ml/min Estimated GFR () 81.0 79.9 Estimated GFR (Non- 69.9 68.9 BUN/Creatinine Ratio 52.8 55.3 Random Glucose 69 mg/dl 74 mg/dl Calcium Level 8.8 mg/dl 8.4 mg/dl Bedside Glucose 66 mg/dl 164 mg/dl White Blood Count 8.86 K/uL Red Blood Count 2.61 M/uL Hemoglobin 7.6 g/dL Hematocrit 23.0 % Mean Corpuscular Volume 88.1 fL Mean Corpuscular Hemoglobin 29.1 pg Mean Corpuscular Hemoglobin Concent 33.0 g/dl RDW Standard Deviation 64.4 fL RDW Coefficient of Variation 20.3 % Platelet Count 207 K/uL Mean Platelet Volume 9.4 fL Test 12/31/16 05:21 12/31/16 10:57 Bedside Glucose 92 mg/dl Assessment & Plan Low total serum iron and TIBC with ferritin greater than 200 ng/ml are all consistent with anemia chronic disease. Being treated for presumed pneumonia. For now would just transfuse with red cells as needed. We will arrange for follow-up in our clinic. Little else to offer hematologically from our service. We will have to update a CT scan of the chest perhaps in 2-3 months check on the mediastinal adenopathy that is commented on that also appears stable from September. No adenopathy seen on abdominal CT are commented on Abd. CT. Will sign off for now please do not hesitate to reconsult if needed
--- NOTE | 2016-12-31 15:44 | Pulmonology Progress Note ---
Pulmonary Progress Note Date of Service Dec 31, 2016. Attending Dr. Luther Subjective Patient is very lethargic today. She makes some on and off eye contact but does not speak or acknowledge questions/coversation. Her caregiver states that Schuyler theodore was suctioned multiple times this morning and had thick, brown secretions coming from the area. She did have a repeat CT scan of the abdomen/ pelvis which showed no ileus or bowel perforation, heterogenicity of the liver, urothelial thickening, small amount of ascites, and acute on chronic opacities of the b/l lung bases suggestive of possible acute atypical infection. Images viewed. Labs reviewed 12/31: WBC 8.86 Hgb 7.6 Hct 23 Creatinine 0.86, BUN 48 Blood Gas 12/29: pH 7.44, pCO2 29, pO2 71, HCO3 19, O2 sat 91.6 Patient continues on Vancomycin and Zosyn. Repeat blood cultures pending. Objective VS reviewed 12/31: SaO2 89-100% on 2 L mechanical ventilation HR 57-69 BP 112/58-125/63 General: Patient is alert on and off but does not speak or make meaningful gestures/eye contact. Head: Normocephalic, Atraumatic. ENT: PERRLA, No discharge, EOMI, Sclera normal Neck: Tracheostomy Respiratory: Patient with tracheostomy. Ventilated. Cardiovascular: Regular rate and rhythm. No murmur appreciate. Normal S1/S2. Abdomen: Normal bowel sounds hear throughout. Neuro:Quadriplegic. 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 Keep SaO2 between 88-92% and PaO2 of 60. Peak airway pressures remain elevated, which may be suggestive of bronchospasm or mucus plugging. May need bronchoscopy if she has persistent desaturation or if she has major changes on her CXR or Chest CT (lobe collapse, worsening consolidation, etc.) Mental status continues to be worsened from baseline Continue with antibiotics per ID recommendations Continue with dornase alpha, frequent suctioning and chest PT Continue with Duonebs q6h Blood cultures and sputum cultures are pending. Try to keep in negative balance as she does have a component of right heart failure and diastolic dysfunction. Keep Hgb > 7, Hematology on board Hyponatremia--per primary team c/w DVT ppx Patient case reviewed agree with current plan. Patient has been noted out of elevated peak airway pressures with decreased peak airway/plateau ratio. This is often seen on her home ventilator and is notably artificially elevated as she 's been placed on Hospital ventilator's with normalization of these numbers. Also the patient does show signs of chronic bilateral lower lobe scarring which could create the increased peak airway pressures. At this time continue current respiratory regimen. Data Medications: Current Inpatient Medications Medications (Trade) Dose Ordered Sig/Tasha Route Start Time Stop Time Status Last Admin Dose Admin Allopurinol (Zyloprim Tab) 100 mg DAILY PEG 12/21/16 09:00 01/20/17 08:59 12/31/16 10:01 100 MG Amlodipine Besylate (Norvasc Tab) 3.75 mg DAILY PEG 12/21/16 09:00 01/20/17 08:59 12/31/16 10:02 3.75 MG Clopidogrel Bisulfate (plAVix TAB) 75 mg DAILY PEG 12/21/16 09:00 01/20/17 08:59 12/31/16 10:01 75 MG Dipyridamole/ Aspirin (Aggrenox 200MG/ 25MG Cap) 1 cap BID PO 12/20/16 21:00 01/19/17 20:59 12/31/16 10:01 1 CAP Escitalopram Oxalate (Lexapro Tab) 20 mg DAILY PEG 12/21/16 09:00 01/20/17 08:59 12/31/16 10:01 20 MG Lidocaine (Lidoderm Patch 5%) 2 patch DAILY PRN TD 12/20/16 20:30 01/19/17 20:29 Ondansetron HCl (Zofran Tab) 4 mg AC PRN PO 12/20/16 20:30 01/19/17 20:29 Phenazopyridine HCl (Pyridium Tab) 200 mg BID PRN PO 12/20/16 20:30 01/19/17 20:29 12/21/16 08:24 200 MG Buspirone HCl (Buspar Tab) 7.5 mg BID PEG 12/20/16 21:00 01/19/17 20:59 12/31/16 10:03 7.5 MG Cholecalciferol (Vitamin D Tab) 5,000 inter.unit DAILY PEG 12/21/16 09:00 01/20/17 08:59 12/31/16 10:07 5,000 INTER.UNIT Methylnaltrexone Cyrus (Relistor Inj) 12 mg Q2D PRN SQ 12/20/16 22:30 01/19/17 22:29 Pentosan Polysulfate Sodium (Elmiron) 100 mg BID PO 12/20/16 21:00 01/19/17 20:59 12/31/16 10:05 100 MG Polyethylene (Miralax Powder Packet) 17 gm DAILY PRN PEG 12/20/16 20:30 01/19/17 20:29 Artificial Tears (Artificial Tears) 1 drops QID PRN OP 12/20/16 20:30 01/19/17 20:29 Lactobacillus Acidophilus (Floranex Tab) 1 tab TID PEG 12/20/16 21:00 01/19/17 20:59 12/31/16 13:32 1 TAB Gabapentin (Neurontin) 600 mg DAILY@2300 PEG 12/20/16 23:00 01/19/17 22:59 12/30/16 22:02 600 MG Gabapentin (Neurontin) 200 mg DAILY@1600 PEG 12/21/16 16:00 01/20/17 15:59 12/30/16 17:34 200 MG Gabapentin (Neurontin) 100 mg QAM PEG 12/21/16 09:00 01/20/17 08:59 12/31/16 10:09 100 MG Glucose (Glucose 40% Gel) 15-30 GRAMS 15 GRAMS... UD PRN PO 12/20/16 22:30 01/19/17 22:29 Glucose (Glucose Chew Tab) 4-8 Tablets 4 Tabl... UD PRN PO 12/20/16 22:30 01/19/17 22:29 Dextrose (Dextrose 50% 50ML Syringe) 25-50ML OF 50% DW IV FOR... UD PRN IV 12/20/16 22:30 01/19/17 22:29 12/30/16 20:22 25 ML Glucagon (Glucagon Inj) 1 mg UD PRN SQ 12/20/16 22:30 01/19/17 22:29 Acetaminophen (Tylenol Soln) 1,000 mg Q6H PRN PO 12/21/16 09:00 01/20/17 08:59 12/29/16 20:56 1,000 MG Heparin Sodium (Porcine) (Heparin 100 Unit/ml 5ml Flush) 5 ml PRN PRN IV 12/22/16 01:00 01/21/17 00:59 Miscellaneous Information (Consult Glycemic Management Pharmacy) 1 ea UD PRN N/A 12/22/16 02:30 01/21/17 02:29 Non-Formulary Medication 1 ea TID@1000,1600,2100 PEG 12/24/16 10:00 01/23/17 09:59 12/31/16 09:57 1 EA Lifitegrast (Xiidra 5% Oph Soln) 1 drop BID@1100,2300 OP 12/24/16 11:00 01/23/17 10:59 12/31/16 10:08 1 DROP Ibuprofen (Motrin Susp) 400 mg Q4H PRN GT 12/24/16 17:15 01/23/17 17:14 12/29/16 15:52 400 MG Acetaminophen (Tylenol Soln) 650 mg Q6H PRN PO 12/26/16 11:15 01/25/17 11:14 12/28/16 15:06 650 MG Imipenem/ Cilastatin Sodium 250 mg/Dextrose 110 ml @ 100 mls/hr Q6H IV 12/26/16 20:00 01/04/17 23:59 12/31/16 13:32 100 MLS/HR Vancomycin HCl (Consult) 1 ea UD PRN N/A 12/26/16 21:00 01/04/17 23:59 Dornase Biju (Pulmozyme Inhalation Soln 2.5ml Amp) 2.5 ml BIDR INH 12/27/16 20:30 01/26/17 20:29 12/29/16 07:03 2.5 ML Ondansetron HCl (Zofran Inj) 4 mg Q6H PRN IV 12/28/16 20:15 01/27/17 20:14 Vancomycin HCl 750 mg/Sodium Chloride 265 ml @ 125 mls/hr DAILY@2200 IV 12/29/16 22:00 01/04/17 23:59 12/30/16 22:02 125 MLS/HR Furosemide (Lasix Tab) 20 mg QAM PO 12/30/16 09:00 01/29/17 08:59 12/31/16 10:01 20 MG Insulin Aspart (novoLOG ASPART) SLIDING SCALE G... DAILY@0600,1000,1600,2100 SC 12/29/16 21:00 01/28/17 20:59 Future hold 12/30/16 05:24 2 UNITS Heparin Sodium (Porcine) (Heparin Sq 5000 Unit/0.5ml) 5,000 unit Q8 SQ 12/29/16 22:00 01/28/17 21:59 12/31/16 13:34 5,000 UNIT Ioversol (Optiray 320) 125 ml UD PRN IV 12/29/16 14:15 01/02/17 14:14 Albuterol/ Ipratropium (Duoneb) 3 ml QIDR INH 12/29/16 16:00 01/28/17 15:59 12/31/16 11:18 3 ML Bisacodyl (Dulcolax Supp) 10 mg DAILY PRN [place] 12/30/16 08:00 01/29/17 07:59 Lansoprazole (Prevacid Solutab) 30 mg DAILY PEG 12/30/16 11:30 01/29/17 11:29 12/31/16 10:07 30 MG Ioversol (Optiray 320) 100 ml UD PRN IV 12/30/16 11:45 01/03/17 11:44 Sodium Chloride (Sodium Chloride Tab) 1 gm BID PO 12/30/16 21:00 01/29/17 20:59 12/31/16 10:05 1 GM Lamotrigine (Lamictal Tab) 200 mg QPM PEG 12/30/16 21:00 01/19/17 20:59 12/30/16 20:37 200 MG Lamotrigine (Lamictal Tab) 200 mg QD@08 PEG 12/31/16 08:00 01/20/17 07:59 12/31/16 10:04 200 MG Lamotrigine (Lamictal Tab) 25 mg QPM PEG 12/30/16 21:00 01/29/17 20:59 12/30/16 20:37 25 MG Lamotrigine (Lamictal Tab) 25 mg QD@08 PEG 12/31/16 08:00 01/30/17 07:59 12/31/16 10:04 25 MG Insulin Glargine (Lantus Solostar Pen) See Protocol Text HS SC 12/31/16 21:00 01/30/17 20:59 Insulin Aspart (novoLOG ASPART) 8 units TID@1000,1600,2100 ME 12/31/16 16:00 01/30/17 15:59 I & O: 24-Hour Column 01/01/17 08:00 Intake Total 168 ml Output Total 250 ml Balance -82 ml Vital Signs: Date Time Temp Pulse Resp B/P (MAP) Pulse Ox O2 Delivery O2 Flow Rate FiO2 12/31/16 11:18 69 21 99 Mechanical Ventilator 12/31/16 10:00 98 Mechanical Ventilator 2.0 12/31/16 10:00 59 18 112/58 (76) 98 Mechanical Ventilator 2.0 12/31/16 07:01 57 21 94 Mechanical Ventilator 12/31/16 04:00 100 Mechanical Ventilator 2.0 12/31/16 04:00 36.4 57 20 125/63 (83) 97 12/31/16 01:43 62 21 89 Mechanical Ventilator 12/31/16 00:00 35.4 62 18 119/82 (94) 95 Room Air 12/30/16 23:59 100 Mechanical Ventilator 2.0 12/30/16 20:00 100 Mechanical Ventilator 2.0 12/30/16 19:37 36.8 66 18 107/90 (96) 94 12/30/16 18:54 58 26 100 Mechanical Ventilator 12/30/16 16:06 36.9 60 20 114/90 (98) 99 12/30/16 16:00 96 Mechanical Ventilator 2.0 12/30/16 15:17 68 29 98 Mechanical Ventilator Laboratory Results: Last 24 Hours Test 12/30/16 16:16 12/30/16 17:02 12/30/16 19:05 12/30/16 20:13 Bedside Glucose 63 mg/dl 94 mg/dl 66 mg/dl Sodium Level 129 mmol/L Potassium Level 3.8 mmol/L Chloride Level 98 mmol/L Carbon Dioxide Level 21 mmol/L Anion Gap 10.0 mmol/L Blood Urea Nitrogen 45 mg/dl Creatinine 0.85 mg/dl Est Creatinine Clear Calc Drug Dose 55.8 ml/min Estimated GFR () 81.0 Estimated GFR (Non- 69.9 BUN/Creatinine Ratio 52.8 Random Glucose 69 mg/dl Calcium Level 8.8 mg/dl Test 12/30/16 20:44 12/31/16 04:21 12/31/16 05:21 12/31/16 09:56 Bedside Glucose 164 mg/dl 92 mg/dl 56 mg/dl White Blood Count 8.86 K/uL Red Blood Count 2.61 M/uL Hemoglobin 7.6 g/dL Hematocrit 23.0 % Mean Corpuscular Volume 88.1 fL Mean Corpuscular Hemoglobin 29.1 pg Mean Corpuscular Hemoglobin Concent 33.0 g/dl RDW Standard Deviation 64.4 fL RDW Coefficient of Variation 20.3 % Platelet Count 207 K/uL Mean Platelet Volume 9.4 fL Sodium Level 131 mmol/L Potassium Level 3.5 mmol/L Chloride Level 99 mmol/L Carbon Dioxide Level 21 mmol/L Anion Gap 11.0 mmol/L Blood Urea Nitrogen 48 mg/dl Creatinine 0.86 mg/dl Est Creatinine Clear Calc Drug Dose 55.1 ml/min Estimated GFR () 79.9 Estimated GFR (Non- 68.9 BUN/Creatinine Ratio 55.3 Random Glucose 74 mg/dl Calcium Level 8.4 mg/dl Test 12/31/16 10:21 12/31/16 11:55 Bedside Glucose 127 mg/dl
[2016-12-31 19:43] LABS: BUN/CREATININE RATIO 45.3 (10-20); CREATININE 1.2 mg/dl (0.60-1.20); POTASSIUM 3.8 mmol/L (3.5-5.1)
[2016-12-31] MEDS: INSULIN GLARGINE SOLOSTAR 100 UNITS/ML 3 ML PEN SC SCH (20:45)
[2016-12-31] MEDS: VANCOMYCIN INJ 750 MG in SODIUM CHLORIDE 0.9% 250ML 250 ML IV SCH (22:23)
[2017-01-01] VITALS (17 sets, daily range): BP systolic 107–145; BP diastolic 46–84; PULSE 52–68; TEMP 35.7–36.7; O2SAT 93–100
[2017-01-01] MEDS: IMIPENEM-CILASTATIN 250 MG in DEXTROSE 5% 100ML 100 ML IV SCH ×4 (05:31→23:52)
[2017-01-01] MEDS: HEPARIN SOD 5000 UNIT/0.5 ML CARP SQ SCH ×3 (05:40→21:07)
[2017-01-01] MEDS: INSULIN ASPART 100 UNITS/ML 3 ML PEN SC SCH ×7 (05:40→21:06)
[2017-01-01] MEDS: DORNASE ALFA (2500U) 2.5MG/2.5ML INH SCH (07:05)
[2017-01-01] MEDS: ALBUT/IPRATROP 3MG/0.5MG NEB 3 ML VIAL INH SCH ×5 (07:22→19:18)
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
[2017-01-01 08:03] LABS: BUN/CREATININE RATIO 48.1 (10-20); CALCIUM 8.2 mg/dl (8.5-10.1); CREATININE 1.2 mg/dl (0.60-1.20); POTASSIUM 4.1 mmol/L (3.5-5.1)
--- NOTE | 2017-01-01 08:57 | Pharmacy Progress Note ---
Glycemic Control Progress Note Date of Service Jan 01, 2017. Scope Glycemic Pharmacist consulted for glycemic control to write orders per [facility] inpatient glycemic control protocol. Objective Accuchecks BSG (last 24hrs): Test 12/31/16 09:56 12/31/16 10:21 12/31/16 16:15 12/31/16 19:06 Bedside Glucose 56 mg/dl (70-90) 127 mg/dl (70-90) 311 mg/dl (70-90) Random Glucose 275 mg/dl (70-99) Test 12/31/16 20:33 01/01/17 05:29 01/01/17 07:16 Bedside Glucose 236 mg/dl (70-90) 220 mg/dl (70-90) Random Glucose 169 mg/dl (70-99) HbA1c: Test 12/21/16 05:19 Hemoglobin A1c 8.7 % (4.5-5.6) H Recent Pertinent Medications The patient is currently receiving: * Basal insulin: Lantus 0-30 units at bedtime, dosing per scale: BSG less than 110 0 units; 110-139 20 units; 140 or greater 30 units * Correctional Insulin: Novolog Correction per scale 4 x daily (0600, 1000, 1600, 2100) Goal Range: Low 1140 mg/dL - High 140 mg/dL Correction Factor: 15 mg/dL/unit * Prandial insulin: 8 units Novolog w/ each Nutren 2.0 feeding (267mL contains ~57.6gm CHO) TID * Oral Agents: none currently Outpatient Anti-Diabetic Meds Lantus 40 units SQ Q PM Assessment & Plan ASSESSMENT: 12/31/16 * Patient has experience 3 episodes of hypoglycemia over the last 24 hrs, likely due to excessive basal insulin in the setting of decreased enteral CHO intake * Fasting AM BSG 74-92 this AM w/ 40 units of Lantus on board. She had become hypoglycemic x 2 yesterday w/ 50 units of Lantus on board after missing 2 of her Nutren feeds earlier in the day. Today she dropped her BSG into the 50's prior to her 1000 Nutren feed. Will continue to titrate the basal insulin dose down. Will utilize a dosing scale on this evening's Lantus order to lessen hypoglycemia risks. * Given repeated hypoglycemic episodes over the last 24 hrs will also reduce the prandial insulin dose as there is excessive basal insulin on board. 01/01/17 * BSGs have been erratic over the last 24 hrs. Likely due to excessive basal insulin leading to hypoglycemia early in the day yesterday, followed by rebound hyperglycemia later in the day due to omission of prandial insulin dose with Nutren feeds later that day. * Fasting BSG 169-220 this AM w/ 30 units of Lantus on board. I would be inclined to increase his basal insulin dose if fasting BSG continues to remain elevated tomorrow. Pt is again receiving Nutren bolus feeds (2 of 3 given yesterday). She appears to be prone to hypoglycemia w/ higher Lantus doses when these feeds are held. * Will continue to trial yesterday's insulin changes for the next 24 hrs. PLAN FOR INPATIENT GLYCEMIC CONTROL: * Continuing Lantus Q evening: if BSG less than 100 give 0 units; BSG 110-139 give 20 units; BSG 140 or greater give 30 units * Continuing correction factor of 15 mg/dl/unit * Continuing prandial dose of 8 units SQ w/ each Nutren bolus feed * Continuing goal range of Low 110 mg/dL - High 140 mg/dL * Please note that the plan above was derived based on current level of insulin resistance and hospital stress. These recommendations are appropriate for inpatient admission only. Plan of care upon discharge will need to be reassessed to avoid potential outpatient hypo/hyperglycemia. Thank you.
[2017-01-01] MEDS: ESCITALOPRAM OXALATE 20 MG TAB PEG SCH (10:08)
[2017-01-01] MEDS: LACTOBACILLUS ACIDOPHILUS (FLORANEX) TAB PEG SCH ×3 (10:08→20:58)
[2017-01-01] MEDS: DIPYRIDAMOLE/ASPIRIN CAP PO SCH ×2 (10:08→20:59)
[2017-01-01] MEDS: CLOPIDOGREL BISULFATE 75 MG TAB PEG SCH (10:08)
[2017-01-01] MEDS: LANSOPRAZOLE SOLUTAB 30 MG PEG SCH (10:09)
[2017-01-01] MEDS: AMLODIPINE BESYLATE 5 MG TAB PEG SCH (10:09)
[2017-01-01] MEDS: ALLOPURINOL 100 MG TAB PEG SCH (10:09)
[2017-01-01] MEDS: CHOLECALCIFEROL 1000 INTER.UNIT TAB PEG SCH (10:10)
[2017-01-01] MEDS: PENTOSAN POLYSULFATE SODIUM 100 MG CAP PO SCH ×2 (10:11→21:00)
[2017-01-01] MEDS: SODIUM CHLORIDE 1 GM TAB PO SCH ×2 (10:11→21:01)
[2017-01-01] MEDS: SODIUM CHLORIDE 0.9% 1000ML 1,000 ML IV SCH ×2 (10:18→18:22)
[2017-01-01] MEDS: NUTREN PEG SCH ×3 (10:19→21:02)
[2017-01-01] MEDS: GABAPENTIN 250 MG/5 ML 470 ML BTL PEG SCH ×3 (10:19→23:52)
[2017-01-01] MEDS: LIFITEGRAST OP SCH ×2 (11:00→23:53)
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
--- NOTE | 2017-01-01 13:25 | DIAGNOSTIC IMAGING REPORT ---
CHEST ONE VIEW PORTABLE CLINICAL HISTORY: 71 years-old Female presenting with Hypoxia, pneumonia. TECHNIQUE: Portable upright AP view of the chest was obtained. COMPARISON: 12/28/2016. FINDINGS: Right subclavian Mediport, left subclavian central line, and tracheostomy tube remain in place. Persistent prominence of the superior mediastinal contour. Atherosclerosis of the aortic arch. Cardiac silhouette remains mildly enlarged. Mildly low lung volumes. Patchy central right lung opacities are not significant changed from prior, however, apparent interval increase in patchy mid and lower left lung opacities. Trace right pleural effusion may be present. No pneumothorax. Osseous structures normal. Upper abdomen normal. IMPRESSION: 1. Slight interval worsening of left mid and lower lung opacities with stable right mid lung opacities. This is most consistent with multifocal pneumonia. 2. Cardiomegaly with prominent superior mediastinal contour unchanged. Electronically signed by: Nikolay Lo M.D. 01/01/2017 1:23 PM Dictated Date/Time: 01/01/2017 1:21 PM
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
[2017-01-01 18:39] LABS: BUN/CREATININE RATIO 48.2 (10-20); CALCIUM 7.5 mg/dl (8.5-10.1); CREATININE 1.2 mg/dl (0.60-1.20); POTASSIUM 3.8 mmol/L (3.5-5.1)
[2017-01-01] MEDS: INSULIN GLARGINE SOLOSTAR 100 UNITS/ML 3 ML PEN SC SCH (21:04)
[2017-01-01] MEDS ORDERED: VANCOMYCIN TROUGH SCH (21:30)
[2017-01-02] VITALS (10 sets, daily range): BP systolic 87–101; BP diastolic 42–62; PULSE 51–59; TEMP 35.7–36.9; O2SAT 95–100
[2017-01-02] MEDS: IMIPENEM-CILASTATIN 250 MG in DEXTROSE 5% 100ML 100 ML IV SCH ×4 (05:49→23:55)
[2017-01-02] MEDS: INSULIN ASPART 100 UNITS/ML 3 ML PEN SC SCH ×7 (05:50→21:00)
[2017-01-02] MEDS: SODIUM CHLORIDE 0.9% 1000ML 1,000 ML IV SCH ×3 (05:53→23:55)
[2017-01-02] MEDS: HEPARIN SOD 5000 UNIT/0.5 ML CARP SQ SCH ×3 (05:53→22:21)
[2017-01-02 06:56] LABS: BUN/CREATININE RATIO 45.5 (10-20); CALCIUM 7.9 mg/dl (8.5-10.1); CREATININE 1.4 mg/dl (0.60-1.20); POTASSIUM 4.3 mmol/L (3.5-5.1)
[2017-01-02] MEDS: ALBUT/IPRATROP 3MG/0.5MG NEB 3 ML VIAL INH SCH ×3 (07:09→20:00)
[2017-01-02] MEDS: DORNASE ALFA (2500U) 2.5MG/2.5ML INH SCH ×2 (08:00→20:00)
[2017-01-02] MEDS: AMLODIPINE BESYLATE 5 MG TAB PEG SCH (09:00)
[2017-01-02] MEDS: PENTOSAN POLYSULFATE SODIUM 100 MG CAP PO SCH ×2 (09:32→22:14)
[2017-01-02] MEDS: ESCITALOPRAM OXALATE 20 MG TAB PEG SCH (09:33)
[2017-01-02] MEDS: CHOLECALCIFEROL 1000 INTER.UNIT TAB PEG SCH (09:33)
[2017-01-02] MEDS: SODIUM CHLORIDE 1 GM TAB PO SCH ×2 (09:33→22:15)
[2017-01-02] MEDS: LANSOPRAZOLE SOLUTAB 30 MG PEG SCH (09:33)
[2017-01-02] MEDS: CLOPIDOGREL BISULFATE 75 MG TAB PEG SCH (09:34)
[2017-01-02] MEDS: DIPYRIDAMOLE/ASPIRIN CAP PO SCH ×2 (09:34→22:13)
[2017-01-02] MEDS: ALLOPURINOL 100 MG TAB PEG SCH (09:34)
[2017-01-02] MEDS: LACTOBACILLUS ACIDOPHILUS (FLORANEX) TAB PEG SCH ×3 (09:35→22:13)
[2017-01-02] MEDS: NUTREN PEG SCH ×3 (09:35→18:23)
[2017-01-02] MEDS: LIFITEGRAST OP SCH ×2 (09:36→23:55)
[2017-01-02] MEDS: GABAPENTIN 250 MG/5 ML 470 ML BTL PEG SCH ×3 (10:08→22:38)
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
--- NOTE | 2017-01-02 11:19 | Pharmacy Progress Note ---
Pharmacy Abx Dose Short Note Date of Service Jan 02, 2017. Assessment & Plan Assessment * 71 year old female receiving VANCOMYCIN and PRIMAXIN IV for treatment of HCAP / UTI * Day # 8 of antimicrobial therapy * Micro currently no growth to date * Yesterday patient had increased secretions, decreasing O2-sat, and reported to be doing worse clinically with worsening CXR * Renal fxn has continued to worsen (SCr 0.57 12/28 --> 0.86-->1.2-->1.4 today), U.O. only 300cc yesterday. NS hydration initiated yesterday. * Patient continues to have episodes of hypothermia at times; HR and BP appear stable based upon overall trends for this admission Plan Vancomycin * Trough level of 32.5 mcg/mL drawn last PM prior to 3rd maintenance dose of vancomycin 750mg Q 24 hrs. This level is supratherapeutic. Prior doses had been hung at appropriate times. Level was drawn at the appropriate time. * Vancomycin was placed on hold last evening and a repeat level was drawn with AM labs today. Repeat level was 32.7 @0543 this AM indicating no elimination in the last 8 hours. * Will continue to hold vancomycin and monitor vancomycin levels to guide redosing. Will check random level tomorrow AM. Half-life for vancomycin is > 24 hours at this point. Restart vancomycin when level 15-20mcg/mL Primaxin * Has been receiving 250mg IV Q 6 hrs per provider's order. Estimates of renal fxn difficult in patient w/ reduce muscle mass secondary to quadriplegia. eCrCl likely 15-30cc/min at this point. This dose would be the max recommended for renal fxn at this level. Given her seizure hx will need to be vigilant for further decline in renal fxn. If she does experience sz's the dose should be reduced and/or other therapies considered if she is clinically declining on current dose. Pharmacy will continue to follow and will adjust dose/frequency as necessary. Thank you.
--- NOTE | 2017-01-02 11:30 | Pharmacy Progress Note ---
Glycemic Control Progress Note Date of Service Jan 02, 2017. Scope Glycemic Pharmacist consulted for glycemic control to write orders per [facility] inpatient glycemic control protocol. Objective Accuchecks BSG (last 24hrs): Test 01/01/17 16:10 01/01/17 18:05 01/01/17 19:52 01/02/17 05:43 Bedside Glucose 215 mg/dl (70-90) 156 mg/dl (70-90) Random Glucose 129 mg/dl (70-99) 118 mg/dl (70-99) Test 01/02/17 05:48 01/02/17 10:08 Bedside Glucose 139 mg/dl (70-90) 186 mg/dl (70-90) HbA1c: Test 12/21/16 05:19 Hemoglobin A1c 8.7 % (4.5-5.6) H Recent Pertinent Medications The patient is currently receiving: * Basal insulin: Lantus 0-30 units at bedtime, dosing per scale: BSG less than 110 0 units; 110-139 20 units; 140 or greater 30 units * Correctional Insulin: Novolog Correction per scale 4 x daily (0600, 1000, 1600, 2100) Goal Range: Low 1140 mg/dL - High 140 mg/dL Correction Factor: 15 mg/dL/unit * Prandial insulin: 8 units Novolog w/ each Nutren 2.0 feeding (267mL contains ~57.6gm CHO) TID * Oral Agents: none currently Outpatient Anti-Diabetic Meds Lantus 40 units Q PM Assessment & Plan ASSESSMENT: 12/31/16 * Patient has experience 3 episodes of hypoglycemia over the last 24 hrs, likely due to excessive basal insulin in the setting of decreased enteral CHO intake * Fasting AM BSG 74-92 this AM w/ 40 units of Lantus on board. She had become hypoglycemic x 2 yesterday w/ 50 units of Lantus on board after missing 2 of her Nutren feeds earlier in the day. Today she dropped her BSG into the 50's prior to her 1000 Nutren feed. Will continue to titrate the basal insulin dose down. Will utilize a dosing scale on this evening's Lantus order to lessen hypoglycemia risks. * Given repeated hypoglycemic episodes over the last 24 hrs will also reduce the prandial insulin dose as there is excessive basal insulin on board. 01/01/17 * BSGs have been erratic over the last 24 hrs. Likely due to excessive basal insulin leading to hypoglycemia early in the day yesterday, followed by rebound hyperglycemia later in the day due to omission of prandial insulin dose with Nutren feeds later that day. * Fasting BSG 169-220 this AM w/ 30 units of Lantus on board. I would be inclined to increase his basal insulin dose if fasting BSG continues to remain elevated tomorrow. Pt is again receiving Nutren bolus feeds (2 of 3 given yesterday). She appears to be prone to hypoglycemia w/ higher Lantus doses when these feeds are held. * Will continue to trial yesterday's insulin changes for the next 24 hrs. 01/02/17 * BSGs have ranged 118-215 over the last 24 hrs; all BSGs less than 190 except one; she has received 68 units of insulin over the last 24 hrs * Fasting BSG 118-139 this AM w/ 30 units of Lantus on board * Patient did receive all 3 Nutren 2.0 bolus feeds yesterday * Will continue the same insulin doses for next 24 hrs as she appears to be stabilizing on the current insulin doses. * Will need to be vigilant for changing insulin sensitivity in light of worsening renal fxn; this may lead to reduced insulin requirements PLAN FOR INPATIENT GLYCEMIC CONTROL: * Continuing Lantus Q evening: if BSG less than 100 give 0 units; BSG 110-139 give 20 units; BSG 140 or greater give 30 units * Continuing correction factor of 15 mg/dl/unit * Continuing prandial dose of 8 units SQ w/ each Nutren bolus feed * Continuing goal range of Low 110 mg/dL - High 140 mg/dL * Please note that the plan above was derived based on current level of insulin resistance and hospital stress. These recommendations are appropriate for inpatient admission only. Plan of care upon discharge will need to be reassessed to avoid potential outpatient hypo/hyperglycemia. Thank you.
[2017-01-02 12:50] LABS: BUN/CREATININE RATIO 42.1 (10-20); CALCIUM 8.1 mg/dl (8.5-10.1); CREATININE 1.6 mg/dl (0.60-1.20); PHOSPHORUS 7.6 mg/dl (2.5-4.9); POTASSIUM 4.5 mmol/L (3.5-5.1)
[2017-01-02 14:13] LABS: MANUAL MICROSCOPIC REQUIRED? YES; REVIEW REQ? NO; URINE APPEARANCE TURBID (CLEAR); URINE BILIRUBIN NEG (NEG); URINE COLOR YELLOW; URINE NITRITE NEG (NEG); URINE PH 5.5 (4.5-7.5); UROBILINOGEN NEG (NEG)
[2017-01-02 14:17] LABS: URINE WBC >30 /hpf (0-5)
[2017-01-02 14:21] LABS: URINE BACTERIA NEG (NEG)
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
[2017-01-02] MEDS ORDERED: LEVOFLOXACIN / D5W 500 MG in PREMIXED IN D5W 100 ML IV SCH (18:00)
[2017-01-02 18:40] LABS: CALCIUM 8.1 mg/dl (8.5-10.1); CREATININE 1.6 mg/dl (0.60-1.20)
[2017-01-02 19:39] LABS: LEGIONELLA ANTIGEN NOT DETECTED (NOT DETECTED)
[2017-01-02] MEDS ORDERED: TOLVAPTAN TAB 15 MG TAB PO ONE (20:00)
--- NOTE | 2017-01-02 21:06 | DIAGNOSTIC IMAGING REPORT ---
CHEST ONE VIEW PORTABLE CLINICAL HISTORY: Hypoxia, abdominal distension COMPARISON STUDY: 01/01/2017 FINDINGS: The tracheostomy tube, right subclavian A-Port catheter, and left subclavian central venous catheter, remain unchanged in appearance. The heart is mildly enlarged. There are persistent bilateral pulmonary airspace opacities/edema. There is slight progression of the lung bases. No significant pleural effusions are visualized. There is no free intraperitoneal air. Soft tissue prominence of superior mediastinum remain stable.[ IMPRESSION: Persistent bilateral pulmonary airspace opacities, slightly progressive within the lower lung zones. Electronically signed by: Viktor Whitfield M.D. 01/02/2017 9:04 PM Dictated Date/Time: 01/02/2017 9:02 PM
--- NOTE | 2017-01-02 21:09 | DIAGNOSTIC IMAGING REPORT ---
KUB CLINICAL HISTORY: Abdominal distension, concern for ileus COMPARISON STUDY: 12/30/2016 FINDINGS: The study is performed in a portable fashion, and is limited from a technical standpoint. There is no pathologic bowel dilatation. A spinal catheter is visualized. There is a balloon catheter within the mid abdomen likely representing a gastrostomy tube. IMPRESSION: No evidence of pathologic bowel dilatation. Electronically signed by: Viktor Whitfield M.D. 01/02/2017 9:08 PM Dictated Date/Time: 01/02/2017 9:06 PM
[2017-01-02] MEDS: INSULIN GLARGINE SOLOSTAR 100 UNITS/ML 3 ML PEN SC SCH (22:22)
[2017-01-03 04:42] VITALS: BP 85/56; PULSE 48; TEMP 35.5; O2SAT 97
[2017-01-03] MEDS: IMIPENEM-CILASTATIN 250 MG in DEXTROSE 5% 100ML 100 ML IV SCH (05:26)
[2017-01-03] MEDS: HEPARIN SOD 5000 UNIT/0.5 ML CARP SQ SCH (05:26)
[2017-01-03] MEDS: INSULIN ASPART 100 UNITS/ML 3 ML PEN SC SCH ×2 (06:00→10:00)
[2017-01-03 06:40] LABS: HEMATOCRIT 21.1 % (37-47); MEAN CELL VOLUME 88.3 fL (80-100); MEAN CORPUSCULAR HEMOGLOBIN 29.3 pg (25-34); MEAN CORPUSCULAR HGB CONC 33.2 g/dl (32-36); MEAN PLATELET VOLUME 9.4 fL (7.4-10.4); PLATELET COUNT 168 K/uL (130-400); RED BLOOD COUNT 2.39 M/uL (4.2-5.4); WHITE BLOOD COUNT 8.48 K/uL (4.8-10.8)
[2017-01-03 07:17] LABS: ANISOCYTOSIS PRESENT; BASO % 0.1 %; BASO ABS # 0.01 K/uL (0-0.2); COMPLETE YES; EOS % 0.2 %; IG% 1.1 %; LYMPH % 10.5 %; LYMPH ABS # 0.89 K/uL (1.2-3.4); MONO % 5.1 %; ROULEAUX 1+
[2017-01-03 07:25] LABS: BUN/CREATININE RATIO 39.5 (10-20); CALCIUM 7.8 mg/dl (8.5-10.1); CREATININE 1.8 mg/dl (0.60-1.20); POTASSIUM 5.4 mmol/L (3.5-5.1)
[2017-01-03] MEDS: ALBUT/IPRATROP 3MG/0.5MG NEB 3 ML VIAL INH SCH (07:30)
[2017-01-03] MEDS: DORNASE ALFA (2500U) 2.5MG/2.5ML INH SCH (07:32)
[2017-01-03 07:35] VITALS: BP 89/46; PULSE 44; TEMP 35.2; O2SAT 97
[2017-01-03] MEDS: AMLODIPINE BESYLATE 5 MG TAB PEG SCH (07:42)
[2017-01-03] MEDS: SODIUM CHLORIDE 1 GM TAB PO SCH (07:42)
[2017-01-03] MEDS: LANSOPRAZOLE SOLUTAB 30 MG PEG SCH (07:43)
[2017-01-03] MEDS: DIPYRIDAMOLE/ASPIRIN CAP PO SCH (07:43)
[2017-01-03] MEDS: LACTOBACILLUS ACIDOPHILUS (FLORANEX) TAB PEG SCH (07:43)
[2017-01-03] MEDS: ESCITALOPRAM OXALATE 20 MG TAB PEG SCH (07:44)
[2017-01-03] MEDS: CHOLECALCIFEROL 1000 INTER.UNIT TAB PEG SCH (07:44)
[2017-01-03] MEDS: CLOPIDOGREL BISULFATE 75 MG TAB PEG SCH (07:44)
[2017-01-03] MEDS: ALLOPURINOL 100 MG TAB PEG SCH (07:46)
[2017-01-03] MEDS: PENTOSAN POLYSULFATE SODIUM 100 MG CAP PO SCH (07:46)
[2017-01-03] MEDS: GABAPENTIN 250 MG/5 ML 470 ML BTL PEG SCH ×2 (07:49→07:54)
[2017-01-03] MEDS ORDERED: LEVOFLOXACIN CONSULT ACTIVE PRN (08:00)
[2017-01-03] MEDS ORDERED: SODI CHLOR IV SCH (08:15)
[2017-01-03] MEDS ORDERED: STERILE WATER IV SCH (08:15)
--- NOTE | 2017-01-03 09:24 | Pharmacy Progress Note ---
Glycemic Control Progress Note Date of Service Jan 03, 2017. Scope Glycemic Pharmacist consulted for glycemic control to write orders per [facility] inpatient glycemic control protocol. Objective Accuchecks BSG (last 24hrs): Test 01/02/17 10:08 01/02/17 12:01 01/02/17 18:01 01/03/17 05:56 Bedside Glucose 186 mg/dl (70-90) Random Glucose 191 mg/dl (70-99) 124 mg/dl (70-99) 61 mg/dl (70-99) Test 01/03/17 06:02 Bedside Glucose 77 mg/dl (70-90) HbA1c: Test 12/21/16 05:19 Hemoglobin A1c 8.7 % (4.5-5.6) H Recent Pertinent Medications The patient is currently receiving: * Basal insulin: Lantus 0-30 units at bedtime, dosing per scale: BSG less than 110 0 units; 110-139 20 units; 140 or greater 30 units * Correctional Insulin: Novolog Correction per scale 4 x daily (0600, 1000, 1600, 2100) Goal Range: Low 1140 mg/dL - High 140 mg/dL Correction Factor: 15 mg/dL/unit * Prandial insulin: 8 units Novolog w/ each Nutren 2.0 feeding (267mL contains ~57.6gm CHO) TID * Oral Agents: none currently Outpatient Anti-Diabetic Meds Lantus 40 units Q PM Assessment & Plan ASSESSMENT: 12/31/16 * Patient has experience 3 episodes of hypoglycemia over the last 24 hrs, likely due to excessive basal insulin in the setting of decreased enteral CHO intake * Fasting AM BSG 74-92 this AM w/ 40 units of Lantus on board. She had become hypoglycemic x 2 yesterday w/ 50 units of Lantus on board after missing 2 of her Nutren feeds earlier in the day. Today she dropped her BSG into the 50's prior to her 1000 Nutren feed. Will continue to titrate the basal insulin dose down. Will utilize a dosing scale on this evening's Lantus order to lessen hypoglycemia risks. * Given repeated hypoglycemic episodes over the last 24 hrs will also reduce the prandial insulin dose as there is excessive basal insulin on board. 01/01/17 * BSGs have been erratic over the last 24 hrs. Likely due to excessive basal insulin leading to hypoglycemia early in the day yesterday, followed by rebound hyperglycemia later in the day due to omission of prandial insulin dose with Nutren feeds later that day. * Fasting BSG 169-220 this AM w/ 30 units of Lantus on board. I would be inclined to increase his basal insulin dose if fasting BSG continues to remain elevated tomorrow. Pt is again receiving Nutren bolus feeds (2 of 3 given yesterday). She appears to be prone to hypoglycemia w/ higher Lantus doses when these feeds are held. * Will continue to trial yesterday's insulin changes for the next 24 hrs. 01/02/17 * BSGs have ranged 118-215 over the last 24 hrs; all BSGs less than 190 except one; she has received 68 units of insulin over the last 24 hrs * Fasting BSG 118-139 this AM w/ 30 units of Lantus on board * Patient did receive all 3 Nutren 2.0 bolus feeds yesterday * Will continue the same insulin doses for next 24 hrs as she appears to be stabilizing on the current insulin doses. * Will need to be vigilant for changing insulin sensitivity in light of worsening renal fxn; this may lead to reduced insulin requirements 01/03/17 * Patient did not receive 2 of her 3 Nutren feedings yesterday. Although she was given a reduced PM dose of Lantus (20 units) she developed mild hypoglycemia this AM. Will lessen the Lantus dose again by modifying the dosing scale. * Novolog 8 units w/ each feeding had performed well when used over the last several days, I plan to continue the same PLAN FOR INPATIENT GLYCEMIC CONTROL: * Change Lantus Q evening: if BSG less than 100 give 0 units; BSG 110-139 give 15 units; BSG 140 or greater give 30 units * Continuing correction factor of 15 mg/dl/unit * Continuing prandial dose of 8 units SQ w/ each Nutren bolus feed * Continuing goal range of Low 110 mg/dL - High 140 mg/dL * Please note that the plan above was derived based on current level of insulin resistance and hospital stress. These recommendations are appropriate for inpatient admission only. Plan of care upon discharge will need to be reassessed to avoid potential outpatient hypo/hyperglycemia. Thank you.
[2017-01-03] MEDS ORDERED: ATROPINE SULFATE 0.1 MG/ML 5ML SYR ONE (09:33)
[2017-01-03] MEDS ORDERED: NURSING VERBAL MED ORDER ONE (09:45)
[2017-01-03] MEDS ORDERED: MoRPHine SULFATE 4 MG/ML 1 ML CARP\\VIAL ONE (09:58)
[2017-01-03] MEDS ORDERED: MoRPHine SULFATE 4 MG/ML 1 ML CARP\\VIAL IV SCH (10:00)
[2017-01-03] MEDS ORDERED: MoRPHine SULFATE 4 MG/ML 1 ML CARP\\VIAL IV PRN (10:00)
[2017-01-03] MEDS ORDERED: LEVOFLOXACIN 250MG / D5W IV ONE (10:00)
[2017-01-03] MEDS ORDERED: MoRPHine SULF/NSS 250MG/250ML 250 ML IV PRN (10:15)
[2017-01-03] MEDS: LIFITEGRAST OP SCH (10:23)
[2017-01-03] MEDS ORDERED: LORAZEPAM 2 MG/ML 1 ML VIAL IV PRN (10:30)
[2017-01-03] MEDS ORDERED: SCOPOLAMINE 1.5 MG TDSY TD SCH (10:30)
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
--- NOTE | 2017-01-03 12:58 | Death Pronouncement Note ---
Pronouncement Note Date & Time of Jan 03, 2017. 1211 Pronouncement At time of pronouncement the patients pupils were fixed and dilated, there was no spontaneous respiratory effort, no palpable pulse, no audible heart tones, and no response to pain or voice.
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
[2017-01-03] MEDS ORDERED: CHECK SCOPOLAMINE PATCH PLACEMENT SCH (16:00)
[2017-01-05] MEDS ORDERED: LEVOFLOXACIN 750MG / D5W IV SCH (10:00)
== END 2017-01-03 17:46 | disposition expired | DRG 70 ==
LOC: C.2E 18:21
PROVIDERS: ADMIT Family Medicine; ATTEND Internal Medicine
DX: G93.41 Metabolic encephalopathy (principal); J18.9 Pneumonia, unspecified organism; G82.50 Quadriplegia, unspecified; J96.20 Acute and chronic respiratory failure, unspecified whether with hypoxia or hypercapnia; J69.0 Pneumonitis due to inhalation of food and vomit; E87.2 Acidosis; N17.9 Acute kidney failure, unspecified; D62 Acute posthemorrhagic anemia; Z99.11 Dependence on respirator [ventilator] status; B48.8 Other specified mycoses; N39.0 Urinary tract infection, site not specified; E87.1 Hypo-osmolality and hyponatremia; K56.7 Ileus, unspecified; R00.1 Bradycardia, unspecified; D63.8 Anemia in other chronic diseases classified elsewhere; Z93.0 Tracheostomy status; J01.90 Acute sinusitis, unspecified; G40.909 Epilepsy, unspecified, not intractable, without status epilepticus; J44.9 Chronic obstructive pulmonary disease, unspecified; Y95 Nosocomial condition; R14.0 Abdominal distension (gaseous); K31.89 Other diseases of stomach and duodenum; E11.649 Type 2 diabetes mellitus with hypoglycemia without coma; E11.65 Type 2 diabetes mellitus with hyperglycemia; B37.9 Candidiasis, unspecified; M62.838 Other muscle spasm; R68.0 Hypothermia, not associated with low environmental temperature; R51 Headache; M54.2 Cervicalgia; K21.9 Gastro-esophageal reflux disease without esophagitis; R79.89 Other specified abnormal findings of blood chemistry; Z79.02 Long term (current) use of antithrombotics/antiplatelets; Z79.01 Long term (current) use of anticoagulants; Z79.4 Long term (current) use of insulin; Z79.899 Other long term (current) drug therapy